=== PATIENT | female | born 1960 | race Caucasian/White ===

== ENCOUNTER 2018-05-23 14:58 | Observation (INO) ==
[2018-05-23] MEDS ORDERED: SODIUM CHLORIDE 0.9% 1000ML 1,000 ML IV ONE (15:06)
--- NOTE | 2018-05-23 15:09 | Emergency Department Note ---
Entered by Reece Galindo acting as a scribe for Cedric Duff DO History of Present Illness General Chief complaint: Stroke/CVA Symptoms Stated complaint: stroke symptoms Time Seen by Provider: 05/23/18 14:58 Source: patient and EMS Mode of arrival: EMS History of Present Illness Provider complaint: Syncope Onset (ago): hour(s) 1 Location: head Quality: + other (Syncope) Exacerbated By: + none Associated symptoms: no nausea/vomiting Patient is a 57 year old female who presents herself via EMS due to a syncope episode. EMS reports that this episode occurred about an hour ago and these episodes have been ongoing for 6 months. EMS reports the patient is experiencing facial drooping, slurred speech, left arm weakness, headaches and dizziness. Patient states she was at home felt fine before passing out. She notes having a brain tumor in the past and nothing exacerbated the syncope episodes. She denies nausea and vomiting with her last bowel movement being in the ER. Home Medications Home Medications Medication Instructions Recorded Confirmed Type Saccharomyces boulardii [Florastor] 250 mg PO BID #20 cap 03/03/18 05/23/18 Rx carbamazepine 200 mg PO BID 03/03/18 05/23/18 History carbidopa-levodopa 1 tab PO TID 03/03/18 05/23/18 History cholecalciferol (vitamin D3) 1,000 unit PO DAILY 03/03/18 05/23/18 History [Vitamin D3] cyanocobalamin (vitamin B-12) 1,000 mcg PO DAILY 03/03/18 05/23/18 History [Vitamin B-12] duloxetine 60 mg PO DAILY 03/03/18 05/23/18 History gabapentin 300 mg PO HS 03/03/18 05/23/18 History hydroxyzine HCl 25 - 50 mg PO BID PRN 03/03/18 05/23/18 History levothyroxine 50 mcg PO DAILY 03/03/18 05/23/18 History linaclotide [Linzess] 72 mcg PO HS 03/03/18 05/23/18 History lysine [L-Lysine] 500 mg PO DAILY 03/03/18 05/23/18 History omeprazole 40 mg PO DAILY 03/03/18 05/23/18 History ranitidine HCl [Zantac] 150 mg PO BID 03/03/18 05/23/18 History rosuvastatin 20 mg PO HS 03/03/18 05/23/18 History Allergies Allergy/AdvReac Type Severity Reaction Status Date / Time Penicillins Allergy Intermediate HIVES Verified 05/23/18 16:32 phenytoin AdvReac Intermediate HIVES Verified 05/23/18 16:32 Past Med/Surg History Medical History Hypokalemia Stroke-like symptoms Brain cancer Craniotomy performed in 1996 in [place] for an astrocytoma Anxiety Depression GERD (gastroesophageal reflux disease) Hyperlipidemia Hypothyroidism Irritable bowel syndrome Myocardial Infarction Osteoarthritis Seizure Syncope Surgical History History of craniotomy Family History Sister Family history of reaction to anesthesia Social History Preferred Language: [place] Communication Ability: Effective 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 and A total of 10 systems reviewed and were otherwise negative Physical Exam Vital Signs Vital Signs - 24 hr 05/23/18 14:38 05/23/18 15:01 05/23/18 15:33 Temperature 36.7 C Temperature Source Oral Sepsis Recent Fever Within 48 Hours No Sepsis New/Unexplained Change in Mental Status No Sepsis Action Taken by Nursing No Action Required Pulse Rate 66 67 67 Pulse Rate [Bilateral Brachial] Pulse Rate from SpO2 Sensor 67 67 Pulse Rhythm Regular Pulse Rhythm [Bilateral Brachial] Pulse Strength Normal Pulse Strength [Bilateral Brachial] Respiratory Rate 20 15 20 Respiratory Effort / Characteristics Non-Labored Spontaneous Respiratory Depth Normal Respiratory Pattern Regular Blood Pressure 118/79 118/79 Blood Pressure [Right Arm] Blood Pressure Mean 92 92 Blood Pressure Mean [Right Arm] Blood Pressure Position Sitting Blood Pressure Position [Right Arm] Pulse Oximetry 99 100 100 Oxygen Delivery Method Room Air 05/23/18 15:37 05/23/18 15:40 05/23/18 15:45 Temperature Temperature Source Sepsis Recent Fever Within 48 Hours Sepsis New/Unexplained Change in Mental Status Sepsis Action Taken by Nursing Pulse Rate 63 62 Pulse Rate [Bilateral Brachial] Pulse Rate from SpO2 Sensor 63 62 Pulse Rhythm Pulse Rhythm [Bilateral Brachial] Pulse Strength Pulse Strength [Bilateral Brachial] Respiratory Rate 15 15 Respiratory Effort / Characteristics Respiratory Depth Respiratory Pattern Blood Pressure 124/90 Blood Pressure [Right Arm] Blood Pressure Mean 101 Blood Pressure Mean [Right Arm] Blood Pressure Position Blood Pressure Position [Right Arm] Pulse Oximetry 100 100 Oxygen Delivery Method Room Air 05/23/18 15:50 05/23/18 16:00 05/23/18 16:01 Temperature Temperature Source Sepsis Recent Fever Within 48 Hours Sepsis New/Unexplained Change in Mental Status Sepsis Action Taken by Nursing Pulse Rate 62 61 61 Pulse Rate [Bilateral Brachial] Pulse Rate from SpO2 Sensor 61 61 62 Pulse Rhythm Pulse Rhythm [Bilateral Brachial] Pulse Strength Pulse Strength [Bilateral Brachial] Respiratory Rate 14 14 15 Respiratory Effort / Characteristics Respiratory Depth Respiratory Pattern Blood Pressure 133/91 Blood Pressure [Right Arm] Blood Pressure Mean 105 Blood Pressure Mean [Right Arm] Blood Pressure Position Blood Pressure Position [Right Arm] Pulse Oximetry 98 98 98 Oxygen Delivery Method 05/23/18 16:10 05/23/18 16:17 05/23/18 16:20 Temperature Temperature Source Sepsis Recent Fever Within 48 Hours Sepsis New/Unexplained Change in Mental Status Sepsis Action Taken by Nursing Pulse Rate 71 66 62 Pulse Rate [Bilateral Brachial] Pulse Rate from SpO2 Sensor 71 66 62 Pulse Rhythm Pulse Rhythm [Bilateral Brachial] Pulse Strength Pulse Strength [Bilateral Brachial] Respiratory Rate 16 15 15 Respiratory Effort / Characteristics Respiratory Depth Respiratory Pattern Blood Pressure 136/93 Blood Pressure [Right Arm] Blood Pressure Mean 107 Blood Pressure Mean [Right Arm] Blood Pressure Position Blood Pressure Position [Right Arm] Pulse Oximetry 98 100 99 Oxygen Delivery Method 05/23/18 16:30 05/23/18 16:31 05/23/18 16:40 Temperature Temperature Source Sepsis Recent Fever Within 48 Hours Sepsis New/Unexplained Change in Mental Status Sepsis Action Taken by Nursing Pulse Rate 62 63 69 Pulse Rate [Bilateral Brachial] Pulse Rate from SpO2 Sensor 62 62 69 Pulse Rhythm Pulse Rhythm [Bilateral Brachial] Pulse Strength Pulse Strength [Bilateral Brachial] Respiratory Rate 13 17 18 Respiratory Effort / Characteristics Respiratory Depth Respiratory Pattern Blood Pressure 119/84 Blood Pressure [Right Arm] Blood Pressure Mean 95 Blood Pressure Mean [Right Arm] Blood Pressure Position Blood Pressure Position [Right Arm] Pulse Oximetry 99 99 99 Oxygen Delivery Method 05/23/18 16:46 05/23/18 16:50 05/23/18 17:00 Temperature Temperature Source Sepsis Recent Fever Within 48 Hours Sepsis New/Unexplained Change in Mental Status Sepsis Action Taken by Nursing Pulse Rate 67 60 Pulse Rate [Bilateral Brachial] Pulse Rate from SpO2 Sensor 67 69 60 Pulse Rhythm Pulse Rhythm [Bilateral Brachial] Pulse Strength Pulse Strength [Bilateral Brachial] Respiratory Rate 21 19 12 Respiratory Effort / Characteristics Respiratory Depth Respiratory Pattern Blood Pressure 121/85 136/92 Blood Pressure [Right Arm] Blood Pressure Mean 97 106 Blood Pressure Mean [Right Arm] Blood Pressure Position Blood Pressure Position [Right Arm] Pulse Oximetry 99 98 100 Oxygen Delivery Method 05/23/18 17:01 05/23/18 17:10 05/23/18 17:16 Temperature Temperature Source Sepsis Recent Fever Within 48 Hours Sepsis New/Unexplained Change in Mental Status Sepsis Action Taken by Nursing Pulse Rate 60 58 L 59 L Pulse Rate [Bilateral Brachial] Pulse Rate from SpO2 Sensor 60 58 L 60 Pulse Rhythm Pulse Rhythm [Bilateral Brachial] Pulse Strength Pulse Strength [Bilateral Brachial] Respiratory Rate 19 15 17 Respiratory Effort / Characteristics Respiratory Depth Respiratory Pattern Blood Pressure 129/87 Blood Pressure [Right Arm] Blood Pressure Mean 101 Blood Pressure Mean [Right Arm] Blood Pressure Position Blood Pressure Position [Right Arm] Pulse Oximetry 98 99 97 Oxygen Delivery Method 05/23/18 17:20 05/23/18 17:30 05/23/18 17:31 Temperature Temperature Source Sepsis Recent Fever Within 48 Hours Sepsis New/Unexplained Change in Mental Status Sepsis Action Taken by Nursing Pulse Rate 60 64 63 Pulse Rate [Bilateral Brachial] Pulse Rate from SpO2 Sensor 60 65 63 Pulse Rhythm Pulse Rhythm [Bilateral Brachial] Pulse Strength Pulse Strength [Bilateral Brachial] Respiratory Rate 15 16 17 Respiratory Effort / Characteristics Respiratory Depth Respiratory Pattern Blood Pressure 116/77 Blood Pressure [Right Arm] Blood Pressure Mean 90 Blood Pressure Mean [Right Arm] Blood Pressure Position Blood Pressure Position [Right Arm] Pulse Oximetry 95 97 97 Oxygen Delivery Method 05/23/18 17:40 05/23/18 17:45 05/23/18 17:50 Temperature Temperature Source Sepsis Recent Fever Within 48 Hours Sepsis New/Unexplained Change in Mental Status Sepsis Action Taken by Nursing Pulse Rate 67 64 62 Pulse Rate [Bilateral Brachial] Pulse Rate from SpO2 Sensor 68 64 62 Pulse Rhythm Pulse Rhythm [Bilateral Brachial] Pulse Strength Pulse Strength [Bilateral Brachial] Respiratory Rate 15 18 16 Respiratory Effort / Characteristics Respiratory Depth Respiratory Pattern Blood Pressure 117/81 Blood Pressure [Right Arm] Blood Pressure Mean 93 Blood Pressure Mean [Right Arm] Blood Pressure Position Blood Pressure Position [Right Arm] Pulse Oximetry 96 96 100 Oxygen Delivery Method 05/23/18 18:00 05/23/18 18:01 05/23/18 18:10 Temperature Temperature Source Sepsis Recent Fever Within 48 Hours Sepsis New/Unexplained Change in Mental Status Sepsis Action Taken by Nursing Pulse Rate 63 64 66 Pulse Rate [Bilateral Brachial] Pulse Rate from SpO2 Sensor 63 64 66 Pulse Rhythm Pulse Rhythm [Bilateral Brachial] Pulse Strength Pulse Strength [Bilateral Brachial] Respiratory Rate 12 15 12 Respiratory Effort / Characteristics Respiratory Depth Respiratory Pattern Blood Pressure 130/82 Blood Pressure [Right Arm] Blood Pressure Mean 98 Blood Pressure Mean [Right Arm] Blood Pressure Position Blood Pressure Position [Right Arm] Pulse Oximetry 99 100 100 Oxygen Delivery Method 05/23/18 18:17 05/23/18 18:20 05/23/18 18:22 Temperature Temperature Source Sepsis Recent Fever Within 48 Hours Sepsis New/Unexplained Change in Mental Status Sepsis Action Taken by Nursing Pulse Rate 64 75 65 Pulse Rate [Bilateral Brachial] Pulse Rate from SpO2 Sensor 67 69 64 Pulse Rhythm Pulse Rhythm [Bilateral Brachial] Pulse Strength Pulse Strength [Bilateral Brachial] Respiratory Rate 15 23 15 Respiratory Effort / Characteristics Respiratory Depth Respiratory Pattern Blood Pressure 132/89 Blood Pressure [Right Arm] Blood Pressure Mean 103 Blood Pressure Mean [Right Arm] Blood Pressure Position Blood Pressure Position [Right Arm] Pulse Oximetry 97 92 99 Oxygen Delivery Method 05/23/18 18:30 05/23/18 18:31 05/23/18 18:32 Temperature Temperature Source Sepsis Recent Fever Within 48 Hours Sepsis New/Unexplained Change in Mental Status Sepsis Action Taken by Nursing Pulse Rate 62 62 67 Pulse Rate [Bilateral Brachial] Pulse Rate from SpO2 Sensor 62 62 66 Pulse Rhythm Pulse Rhythm [Bilateral Brachial] Pulse Strength Pulse Strength [Bilateral Brachial] Respiratory Rate 16 17 17 Respiratory Effort / Characteristics Respiratory Depth Respiratory Pattern Blood Pressure 121/89 Blood Pressure [Right Arm] Blood Pressure Mean 99 Blood Pressure Mean [Right Arm] Blood Pressure Position Blood Pressure Position [Right Arm] Pulse Oximetry 100 100 100 Oxygen Delivery Method 05/23/18 18:40 05/23/18 18:46 05/23/18 18:50 Temperature Temperature Source Sepsis Recent Fever Within 48 Hours Sepsis New/Unexplained Change in Mental Status Sepsis Action Taken by Nursing Pulse Rate 63 64 63 Pulse Rate [Bilateral Brachial] Pulse Rate from SpO2 Sensor 64 63 63 Pulse Rhythm Pulse Rhythm [Bilateral Brachial] Pulse Strength Pulse Strength [Bilateral Brachial] Respiratory Rate 12 13 13 Respiratory Effort / Characteristics Respiratory Depth Respiratory Pattern Blood Pressure 133/84 Blood Pressure [Right Arm] Blood Pressure Mean 100 Blood Pressure Mean [Right Arm] Blood Pressure Position Blood Pressure Position [Right Arm] Pulse Oximetry 98 98 100 Oxygen Delivery Method 05/23/18 19:00 05/23/18 19:01 05/23/18 19:42 Temperature 36.8 C Temperature Source Oral Sepsis Recent Fever Within 48 Hours Sepsis New/Unexplained Change in Mental Status Sepsis Action Taken by Nursing Pulse Rate 62 62 61 Pulse Rate [Bilateral Brachial] 60 Pulse Rate from SpO2 Sensor 62 62 Pulse Rhythm Pulse Rhythm [Bilateral Brachial] Regular Pulse Strength Pulse Strength [Bilateral Brachial] Normal Respiratory Rate 18 17 18 Respiratory Effort / Characteristics Non-Labored Spontaneous Respiratory Depth Normal Respiratory Pattern Regular Blood Pressure 129/77 Blood Pressure [Right Arm] 119/77 Blood Pressure Mean 94 Blood Pressure Mean [Right Arm] 91 Blood Pressure Position Blood Pressure Position [Right Arm] Lying Pulse Oximetry 98 96 100 Oxygen Delivery Method Room Air 05/23/18 23:16 05/23/18 23:26 05/24/18 04:37 Temperature 36.6 C 36.9 C Temperature Source Oral Oral Sepsis Recent Fever Within 48 Hours Sepsis New/Unexplained Change in Mental Status Sepsis Action Taken by Nursing Pulse Rate 62 Pulse Rate [Bilateral Brachial] 64 68 Pulse Rate from SpO2 Sensor Pulse Rhythm Pulse Rhythm [Bilateral Brachial] Pulse Strength Pulse Strength [Bilateral Brachial] Respiratory Rate 18 18 Respiratory Effort / Characteristics Respiratory Depth Respiratory Pattern Blood Pressure Blood Pressure [Right Arm] 127/84 117/78 Blood Pressure Mean Blood Pressure Mean [Right Arm] 98 91 Blood Pressure Position Blood Pressure Position [Right Arm] Lying Lying Pulse Oximetry 100 97 Oxygen Delivery Method Room Air Room Air 05/24/18 06:58 05/24/18 11:26 Temperature 36.6 C 36.8 C Temperature Source Oral Oral Sepsis Recent Fever Within 48 Hours Sepsis New/Unexplained Change in Mental Status Sepsis Action Taken by Nursing Pulse Rate Pulse Rate [Bilateral Brachial] 60 71 Pulse Rate from SpO2 Sensor Pulse Rhythm Pulse Rhythm [Bilateral Brachial] Pulse Strength Pulse Strength [Bilateral Brachial] Respiratory Rate 18 19 Respiratory Effort / Characteristics Respiratory Depth Respiratory Pattern Blood Pressure Blood Pressure [Right Arm] 114/74 130/83 Blood Pressure Mean Blood Pressure Mean [Right Arm] 87 98 Blood Pressure Position Blood Pressure Position [Right Arm] Lying Sitting Pulse Oximetry 99 90 Oxygen Delivery Method Room Air Room Air GENERAL: Patient is listless and slow to respond to questions. She does respond appropriately. EYES: The conjunctivae are clear. The pupils are round and reactive. EARS, NOSE, MOUTH AND THROAT: The nose is without any evidence of any deformity. Mucous membranes are moist tongue is midline NECK: The neck is nontender and supple. RESPIRATORY: Normal respiratory effort is noted there is no evidence of wheezing rhonchi or rales CARDIOVASCULAR: Regular rate and rhythm noted there no murmurs rubs or gallops normal S1 normal S2 GASTROINTESTINAL: The abdomen is soft. Bowel sounds are present in all quadran ts. Abdomen is nontender MUSCULOSKELETAL/EXTREMITIES: There is no evidence of gross deformity full range of motion is noted in the hips and shoulders SKIN: There is no obvious evidence of any rash. There are no petechiae, pallor or cyanosis noted. NEUROLOGIC: Patient is oriented to person place and situation. There is a drift in the left upper extremity. There is a left facial droop with forehead sparing. Left leg appears to have appropriate strength compared to the right leg. [employer] strength is diminished in the left upper extremity compared to the right. Course 1500: Past medical records reviewed. The patient was evaluated in room C03, and a complete history and physical examination were performed. 1546:The patient is feeling slightly better. 1608: I reevaluated the patient and will admit the patient. [facility] The patient has verbalized agreement of the treatment plan. Administered Medications Carbamazepine (Tegretol Xr) 200 mg PO BID JOVANY Stop: 06/22/18 20:59 Last Admin: 05/23/18 21:07 Dose: Not Given Documented by: [id number] Carbidopa/Levodopa (Sinemet 25/100 Mg) 1 tab PO TID JOVANY Stop: 06/22/18 20:59 Last Admin: 05/23/18 21:07 Dose: Not Given Documented by: [id number] Gabapentin (Neurontin) 300 mg PO HS JOVANY Stop: 06/22/18 20:59 Last Admin: 05/23/18 21:07 Dose: Not Given Documented by: [id number] Gadobutrol (Gadavist 65ml) 6 ml IV ONCE PRN PRN Reason: Interaction Checking Stop: 05/27/18 21:53 Last Admin: 05/23/18 21:54 Dose: 6 ml Documented by: [id number] Sodium Chloride (Nss 1000ml) 1,000 mls @ 50 mls/hr IV .Q20H JOVANY Stop: 06/22/18 15:14 Last Admin: 05/23/18 21:50 Dose: 50 mls/hr Documented by: [id number] Ioversol (Optiray 320 125ml) 119 ml IV ONCE PRN PRN Reason: Interaction Checking Stop: 05/27/18 15:21 Last Admin: 05/23/18 15:23 Dose: 119 ml Documented by: [id number] Levothyroxine Sodium (Synthroid) 50 mcg PO DAILYBB [facility] Stop: 06/23/18 06:29 Last Admin: 05/24/18 05:19 Dose: Not Given Documented by: [id number] Linaclotide (Linzess) 72 mcg PO HS [facility] Stop: 06/22/18 20:59 Last Admin: 05/23/18 21:06 Dose: Not Given Documented by: [id number] Ranitidine HCl (Zantac) 150 mg PO BID JOVANY Stop: 06/22/18 20:59 Last Admin: 05/23/18 21:07 Dose: Not Given Documented by: [id number] Rosuvastatin Calcium (Crestor) 20 mg PO HS [facility] Stop: 06/22/18 20:59 Last Admin: 05/23/18 21:06 Dose: Not Given Documented by: [id number] Saccharomyces Boulardii (Florastor) 250 mg PO BID JOVANY Stop: 06/22/18 20:59 Last Admin: 05/23/18 21:06 Dose: Not Given Documented by: [id number] Discontinued Medications Sodium Chloride (Nss 1000ml) 1,000 mls @ 999 mls/hr IV .Q1H1M ONE Stop: 05/23/18 16:06 Last Infusion: 05/23/18 21:17 Dose: 0 mls/hr Documented by: [id number] Admin: 05/23/18 15:53 Dose: 999 mls/hr Documented by: [id number] Potassium Chloride (Klor-Con M20) 40 meq PO NOW STA Stop: 05/23/18 20:55 Last Admin: 05/23/18 21:06 Dose: Not Given Documented by: [id number] Medical Decision Making Differential Diagnosis Differential diagnosis: Etiologies such as vasovagal event, infection, anemia, hypoglycemia, hypovolemia, electrolyte abnormalities, dysrhythmias, cardiac ischemia, cardiac tamponade, valvular heart disease, structural heart disease, seizure, vascular stenosis/dissection, pulmonary embolism, intracerebral event, toxicological pr ocess, neurologic event, as well as others were entertained. Medical Records Attestation: I reviewed the patient's medical records. Home Medications Current Medication List: was personally reviewed by me Laboratory Data Attestation: I reviewed the patient's lab results. Result diagrams: 05/23/18 22:37 05/23/18 22:37 Lab Results 05/23/18 05/23/18 05/23/18 Range/Units 14:28 14:28 14:28 WBC 4.63 L (4.8-10.8) K/uL RBC 4.67 (4.2-5.4) M/uL Hgb 15.0 (12.0-16.0) g/dL Hct 42.5 (37-47) % MCV 91.0 (80-100) fL MCH 32.1 (25-34) pg MCHC 35.3 (32-36) g/dL RDW Std Deviation 43.9 (36.4-46.3) fL RDW Coeff of Claudio 13.4 (11.5-14.5) % Plt Count 208 (130-400) K/uL MPV 10.4 (7.4-10.4) fL Immature Gran % (Auto) 0.2 % Neut % (Auto) 44.3 % Lymph % (Auto) 48.4 % [place] % (Auto) 7.1 % Eos % (Auto) 0.0 % Baso % (Auto) 0.0 % Immature Gran # (Auto) 0.01 (0.00-0.02) K/uL Neut # (Auto) 2.05 (1.4-6.5) K/uL Lymph # (Auto) 2.24 (1.2-3.4) K/uL [place] # (Auto) 0.33 (0.11-0.59) K/uL Eos # (Auto) 0.00 (0-0.5) K/uL Baso # (Auto) 0.00 (0-0.2) K/uL PT (9.0-12.0) Seconds INR (0.9-1.1) APTT (21.0-31.0) Seconds PTT Ratio Sodium 145 (136-145) mmol/L Potassium 3.3 L (3.5-5.1) mmol/L Chloride 108 H (98-107) mmol/L Carbon Dioxide 29 (21-32) mmol/L Anion Gap 8.0 (3-11) BUN 17 (7-18) mg/dl Creatinine 0.85 (0.6-1.2) mg/dl Est Cr Clr Drug Dosing Not Reportable Est GFR ( Amer) 88.8 Est GFR (Non-Af Amer) 76.6 BUN/Creatinine Ratio 20.1 H (10-20) Glucose 132 H (70-99) mg/dl Calcium 8.6 (8.5-10.1) mg/dl Magnesium 2.1 (1.8-2.4) mg/dl Total Bilirubin 0.3 (0.2-1) mg/dl AST 47 H (15-37) U/L ALT 15 (12-78) U/L Alkaline Phosphatase 149 H (45-117) U/L Troponin I < 0.015 (0-0.045) ng/ml Total Protein 7.4 (6.4-8.2) gm/dl Albumin 3.8 (3.4-5.0) gm/dl Globulin 3.6 (2.5-4.0) gm/dl Albumin/Globulin Ratio 1.1 (0.9-2) Urine Color Urine Appearance (Clear) Urine pH (4.5-7.5) Ur Specific [place] (1.000-1.030) Urine Protein (Negative) Urine Glucose (UA) (Negative) Urine Ketones (Negative) Urine Blood (Negative) Urine Nitrite (Negative) Urine Bilirubin (Negative) Urine Urobilinogen (Negative) Ur Leukocyte Esterase (Negative) Urine WBC (Auto) (0-5) /hpf Urine RBC (Auto) (0-4) /hpf U Hyaline Cast (Auto) (0-5) /lpf U Epithel Cells (Auto) (0-5) /lpf Urine Bacteria (Auto) (Negative) Carbamazepine 15.0 H* (4-12) mcg/ml 05/23/18 05/23/18 05/23/18 Range/Units 15:32 22:37 22:37 WBC 4.96 (4.8-10.8) K/uL RBC 4.37 (4.2-5.4) M/uL Hgb 13.8 (12.0-16.0) g/dL Hct 39.5 (37-47) % MCV 90.4 (80-100) fL MCH 31.6 (25-34) pg MCHC 34.9 (32-36) g/dL RDW Std Deviation 43.5 (36.4-46.3) fL RDW Coeff of Claudio 13.3 (11.5-14.5) % Plt Count 190 (130-400) K/uL MPV 10.0 (7.4-10.4) fL Immature Gran % (Auto) 0.2 % Neut % (Auto) 55.0 % Lymph % (Auto) 36.9 % [place] % (Auto) 7.9 % Eos % (Auto) 0.0 % Baso % (Auto) 0.0 % Immature Gran # (Auto) 0.01 (0.00-0.02) K/uL Neut # (Auto) 2.73 (1.4-6.5) K/uL Lymph # (Auto) 1.83 (1.2-3.4) K/uL [place] # (Auto) 0.39 (0.11-0.59) K/uL Eos # (Auto) 0.00 (0-0.5) K/uL Baso # (Auto) 0.00 (0-0.2) K/uL PT 10.8 (9.0-12.0) Seconds INR 1.1 (0.9-1.1) APTT 24.2 (21.0-31.0) Seconds PTT Ratio 0.9 Sodium 145 (136-145) mmol/L Potassium 3.6 (3.5-5.1) mmol/L Chloride 110 H (98-107) mmol/L Carbon Dioxide 29 (21-32) mmol/L Anion Gap 6.0 (3-11) BUN 11 (7-18) mg/dl Creatinine 0.56 L (0.6-1.2) mg/dl Est Cr Clr Drug Dosing 92.8 Est GFR ( Amer) 120.8 Est GFR (Non-Af Amer) 104.2 BUN/Creatinine Ratio 19.3 (10-20) Glucose 83 (70-99) mg/dl Calcium 8.6 (8.5-10.1) mg/dl Magnesium (1.8-2.4) mg/dl Total Bilirubin (0.2-1) mg/dl AST (15-37) U/L ALT (12-78) U/L Alkaline Phosphatase (45-117) U/L Troponin I (0-0.045) ng/ml Total Protein (6.4-8.2) gm/dl Albumin (3.4-5.0) gm/dl Globulin (2.5-4.0) gm/dl Albumin/Globulin Ratio (0.9-2) Urine Color Urine Appearance (Clear) Urine pH (4.5-7.5) Ur Specific [place] (1.000-1.030) Urine Protein (Negative) Urine Glucose (UA) (Negative) Urine Ketones (Negative) Urine Blood (Negative) Urine Nitrite (Negative) Urine Bilirubin (Negative) Urine Urobilinogen (Negative) Ur Leukocyte Esterase (Negative) Urine WBC (Auto) (0-5) /hpf Urine RBC (Auto) (0-4) /hpf U Hyaline Cast (Auto) (0-5) /lpf U Epithel Cells (Auto) (0-5) /lpf Urine Bacteria (Auto) (Negative) Carbamazepine (4-12) mcg/ml 05/24/18 Range/Units 08:15 WBC (4.8-10.8) K/uL RBC (4.2-5.4) M/uL Hgb (12.0-16.0) g/dL Hct (37-47) % MCV (80-100) fL MCH (25-34) pg MCHC (32-36) g/dL RDW Std Deviation (36.4-46.3) fL RDW Coeff of Claudio (11.5-14.5) % Plt Count (130-400) K/uL MPV (7.4-10.4) fL Immature Gran % (Auto) % Neut % (Auto) % Lymph % (Auto) % [place] % (Auto) % Eos % (Auto) % Baso % (Auto) % Immature Gran # (Auto) (0.00-0.02) K/uL Neut # (Auto) (1.4-6.5) K/uL Lymph # (Auto) (1.2-3.4) K/uL [place] # (Auto) (0.11-0.59) K/uL Eos # (Auto) (0-0.5) K/uL Baso # (Auto) (0-0.2) K/uL PT (9.0-12.0) Seconds INR (0.9-1.1) APTT (21.0-31.0) Seconds PTT Ratio Sodium (136-145) mmol/L Potassium (3.5-5.1) mmol/L Chloride (98-107) mmol/L Carbon Dioxide (21-32) mmol/L Anion Gap (3-11) BUN (7-18) mg/dl Creatinine (0.6-1.2) mg/dl Est Cr Clr Drug Dosing Est GFR ( Amer) Est GFR (Non-Af Amer) BUN/Creatinine Ratio (10-20) Glucose (70-99) mg/dl Calcium (8.5-10.1) mg/dl Magnesium (1.8-2.4) mg/dl Total Bilirubin (0.2-1) mg/dl AST (15-37) U/L ALT (12-78) U/L Alkaline Phosphatase (45-117) U/L Troponin I (0-0.045) ng/ml Total Protein (6.4-8.2) gm/dl Albumin (3.4-5.0) gm/dl Globulin (2.5-4.0) gm/dl Albumin/Globulin Ratio (0.9-2) Urine Color Dark Yellow Urine Appearance Cloudy H (Clear) Urine pH 5.5 (4.5-7.5) Ur Specific [place] > 1.045 H (1.000-1.030) Urine Protein Negative (Negative) Urine Glucose (UA) Negative (Negative) Urine Ketones Trace H (Negative) Urine Blood Negative (Negative) Urine Nitrite Positive H (Negative) Urine Bilirubin Negative (Negative) Urine Urobilinogen Negative (Negative) Ur Leukocyte Esterase 2+ H (Negative) Urine WBC (Auto) >30 H (0-5) /hpf Urine RBC (Auto) 0-4 (0-4) /hpf U Hyaline Cast (Auto) 5-10 H (0-5) /lpf U Epithel Cells (Auto) >30 H (0-5) /lpf Urine Bacteria (Auto) Negative (Negative) Carbamazepine (4-12) mcg/ml Imaging Data Attestation: I personally reviewed and interpreted this imaging study as follows: Radiologist's Impression: Radiology results as stated below per my review and the radiologist's interpretation: CT angio neck with con CLINICAL HISTORY: weakness COMPARISON STUDY: No previous studies for comparison. TECHNIQUE: CT angiography was performed from the aortic arch to the skull base. MIP imaging was performed. The patient was scanned in a dynamic helical fashion during intravenous administration of 119 cc of Optiray 320. A dose lowering technique was utilized adhering to the principles of ALARA. CT DOSE: 1107.31 mGy.cm Technique: CT angiogram of the carotid and vertebral arteries was obtained using intravenous contrast and 3-D reconstruction. NASCET criteria was utilized. Findings: There is a multinodular thyroid gland. No dominant suspicious nodules are visualized. The common carotids have a medial retropharyngeal course. The right carotid revealed no evidence of aneurysm and no evidence of dissection. There is no evidence of hemodynamic significant stenosis. The left carotid revealed no evidence of hemodynamic significant stenosis. There is no evidence of aneurysm. There is no evidence of dissection. There is no evidence of hemodynamically significant vertebral stenosis. There is no evidence of vertebral dissection. IMPRESSION: No evidence of hemodynamically significant carotid or vertebral artery stenosis. No evidence of dissection. Electronically signed by: Jamie Lacy M.D. 05/23/2018 3:39 PM Dictated: 05/23/18 1536 Transcribed: 05/23/[address] angio head w con CLINICAL HISTORY: weakness HISTORY OF BRAIN TUMOR REMOVAL TECHNIQUE: CT angiography of the head was performed in a dynamic helical fashion during intravenous administration of 119 cc cc of Optiray 320. MIP imaging was performed. A dose lowering technique was utilized adhering to the principles of ALARA. CT DOSE: COMPARISON STUDY: No previous studies for comparison. FINDINGS: There are no lesion suspicious for aneurysm. There are no major intracranial branch occlusions. The dural venous sinuses appear patent. There is a small right-sided subcutaneous dural hygroma. 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 There are postsurgical changes of a right frontal craniotomy. There is mild right to left midline shift. Inflammatory changes are present within the right frontal sinus. IMPRESSION: 1. No evidence of aneurysm. 2. No evidence of major intracranial branch occlusion or stenosis. 3. Postsurgical changes involve the right frontal lobe with a right frontal porencephalic cyst. 4. Small right convexity subdural hygroma. 5. Mild right to left midline shift. Electronically signed by: Jamie Lacy M.D. 05/23/2018 3:36 PM Dictated: 05/23/18 1533 Transcribed: 05/23/18 1533 XR chest 1V portable CLINICAL HISTORY: weakness COMPARISON STUDY: 03/03/2018 FINDINGS: The cardiac and mediastinal contours are normal. There is no evidence of focal pulmonary consolidation. There is no evidence of failure. No pleural effusions are visualized.[ IMPRESSION: No active disease in the chest. Electronically signed by: Jamie Lacy M.D. 05/23/2018 3:56 PM Dictated: 05/23/18 1556 Transcribed: 05/23/[address] head/brain wo con CLINICAL HISTORY: Stroke like symptoms COMPARISON STUDY: 03/03/2018 TECHNIQUE: Axial CT of the brain is performed from the vertex to the skull base. IV contrast was not administered for this examination. A dose lowering technique was utilized adhering to the principles of ALARA. CT DOSE: FINDINGS: There are post right frontal craniotomy changes. There is a small right convexity subdural hygroma. This measures 7 mm in maximal thickness. There is a 6.3 cm right frontal porencephalic cyst. There is persistent mild midline shift. There is no CT evidence of acute cortical infarction. There is stable hyperdense material at the posterior aspect of the right frontal lobe medially There are patchy white matter hypodensities likely on a small vessel basis. There is no evidence of pathologic ventricular dilatation. There is mild mucosal disease within the right frontal sinus. There is a stable salt and pepper appearance of the calvarial vertex IMPRESSION: 1. Postsurgical changes of a right frontal craniotomy 2. 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 Interval development of a small right convexity subdural hygroma 4. Persistent mild right to left midline shift 5. No evidence of acute hemorrhage Electronically signed by: Jamie Lacy M.D. 05/23/2018 3:29 PM Dictated: 05/23/18 1522 Transcribed: 05/23/18 1522 ECG Data Attestation: I personally reviewed and interpreted this ECG as follows: Indication: other (Syncope) Rate (beats per minute): 63 Rhythm: normal sinus Findings: + other (Anterior and lateral ST depression with T wave inversion noted ) Blood Pressure Blood Pressure Findings: Normal blood pressure MDM Narrative The patient is a 57-year-old female who presented to the emergency department as a stroke alert. The patient's last known well time was not completely clear. The patient does have a history of a craniotomy for a right frontal lobe mass. The patient started having left facial droop and left arm weakness and presented to the emergency department after syncopal episode. The patient did not have any acute bleeding on CT the head however she did have a hygroma and her postsurgical changes were noted. The patient's condition quickly improved while she was in the emergency department and I do not feel that she would benefit from TPA. I discussed TPA with the patient. At this point I do feel the risk would be too high from giving her TPA as her symptoms continue to improve e specially given her findings on radiographic studies. I discussed the patient's laboratory and radiographic studies with her. I discussed her case with the on-call [facility] hospitalist group. They have agreed to evaluate the patient in the emergency department for further management and disposition. The patient was complaining of some dizziness upon standing and near syncopal symptoms. She was treated with IV fluids and her blood pressure slowly improved. Impression & Plan CVA (cerebral vascular accident), Syncope, Brain TIA Discharge Plan Visit Data *Final* Discharge Date/Time: 05/23/18 19:04 Chief Complaint: Stroke/CVA Symptoms Stated Complaint: stroke symptoms ED Provider: Cedric Duff Discharge Problem: CVA (cerebral vascular accident), Syncope, Brain TIA Patient Disposition: Admitted As Inpatient Condition: Serious Discharge Instructions Interventions: ED Discharge Assessment Last Done: 05/23/18 19:04 Discharge Problem: CVA (cerebral vascular accident) Qualifiers: CVA mechanism: unspecified Qualified Code(s): I63.9 - Cerebral infarction, unspecified Syncope Qualifiers: Syncope type: unspecified Qualified Code(s): R55 - Syncope and collapse The scribe's documentation has been prepared under my direction and personally reviewed by me in its entirety. I confirm that the note above accurately reflects all work, treatment, procedures, and medical decision making performed by me.
[2018-05-23 15:15] LABS: Hematocrit (blood only) 42.5 % (37-47); Immature Granulocytes # (auto) 0.01 K/uL (0.00-0.02); Immature Granulocytes % (auto) 0.2 %; Lymphocytes # (auto) 2.24 K/uL (1.2-3.4); Lymphocytes % (auto) 48.4 %; Mean Corpuscular Hgb Conc 35.3 g/dL (32-36); Mean Platelet Volume 10.4 fL (7.4-10.4); Monocytes # (auto) 0.33 K/uL (0.11-0.59); Monocytes % (auto) 7.1 %; Neutrophils # (auto) 2.05 K/uL (1.4-6.5); Neutrophils % (auto) 44.3 %; Platelet Count 208 K/uL (130-400); RDW Coefficient of Variation 13.4 % (11.5-14.5); RDW Standard Deviation 43.9 fL (36.4-46.3); Red Blood Count 4.67 M/uL (4.2-5.4); White Blood Count 4.63 K/uL (4.8-10.8)
[2018-05-23] MEDS ORDERED: SODIUM CHLORIDE 0.9% 1000ML 1,000 ML IV SCH (15:15)
[2018-05-23] MEDS ORDERED: OPTIRAY 320 125ml IV PRN (15:22)
--- NOTE | 2018-05-23 15:30 | CT Scan Report ---
CT head/brain wo con CLINICAL HISTORY: Stroke like symptoms COMPARISON STUDY: 03/03/2018 TECHNIQUE: Axial CT of the brain is performed from the vertex to the skull base. IV contrast was not administered for this examination. A dose lowering technique was utilized adhering to the principles of ALARA. CT DOSE: FINDINGS: There are post right frontal craniotomy changes. There is a small right convexity subdural hygroma. T his measures 7 mm in maximal thickness. There is a 6.3 cm right frontal porencephalic cyst. There is persistent mild midline shift. There is no CT evidence of acute cortical infarction. There is stable hyperdense material at the posterior aspect of the right frontal lobe medially There are patchy white matter hypodensities likely on a small vessel basis. There is no evidence of pathologic ventricular dilatation. There is mild mucosal disease within the right frontal sinus. There is a stable salt and pepper appearance of the calvarial vertex IMPRESSION: 1. Postsurgical changes of a right frontal craniotomy 2. 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 Interval development of a small right convexity subdural hygroma 4. Persistent mild right to left midline shift 5. No evidence of acute hemorrhage Electronically signed by: Jamie Lacy M.D. 05/23/2018 3:29 PM
[2018-05-23 15:36] LABS: Alanine Aminotransferase 15 U/L (12-78); Albumin Level 3.8 gm/dl (3.4-5.0); Aspartate Aminotransferase 47 U/L (15-37); BUN Creatinine Ratio 20.1 (10-20); Blood Urea Nitrogen 17 mg/dl (7-18); Calcium 8.6 mg/dl (8.5-10.1); Carbon Dioxide 29 mmol/L (21-32); Chloride 108 mmol/L (98-107); Est GFR (African American) 88.8; Est GFR (Non-African American) 76.6; Glucose 132 mg/dl (70-99); Magnesium 2.1 mg/dl (1.8-2.4); Potassium 3.3 mmol/L (3.5-5.1); Sodium 145 mmol/L (136-145)
--- NOTE | 2018-05-23 15:37 | CT Scan Report ---
CT angio head w con CLINICAL HISTORY: weakness HISTORY OF BRAIN TUMOR REMOVAL TECHNIQUE: CT angiography of the head was performed in a dynamic helical fashion during intravenous a dministration of 119 cc cc of Optiray 320. MIP imaging was performed. A dose lowering technique was u tilized adhering to the principles of ALARA. CT DOSE: COMPARISON STUDY: No previous studies for comparison. FINDINGS: There are no lesion suspicious for aneurysm. There are no major intracranial branch occlusi ons. The dural venous sinuses appear patent. There is a small right-sided subcutaneous dural hygroma. 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 There are postsurgical changes of a right frontal craniotomy. There is mild right to left midline shift. Inflammatory changes are present within the right frontal sinus. IMPRESSION: 1. No evidence of aneurysm. 2. No evidence of major intracranial branch occlusion or stenosis. 3. Postsurgical changes involve the right frontal lobe with a right frontal porencephalic cyst. 4. Small right convexity subdural hygroma. 5. Mild right to left midline shift. Electronically signed by: Jamie Lacy M.D. 05/23/2018 3:36 PM
--- NOTE | 2018-05-23 15:40 | CT Scan Report ---
CT angio neck with con CLINICAL HISTORY: weakness COMPARISON STUDY: No previous studies for comparison. TECHNIQUE: CT angiography was performed from the aortic arch to the skull base. MIP imaging was perfo rmed. The patient was scanned in a dynamic helical fashion during intravenous administration of 119 c c of Optiray 320. A dose lowering technique was utilized adhering to the principles of ALARA. CT DOSE: 1107.31 mGy.cm Technique: CT angiogram of the carotid and vertebral arteries was obtained using intravenous contrast and 3-D reconstruction. NASCET criteria was utilized. Findings: There is a multinodular thyroid gland. No dominant suspicious nodules are visualized. The common carotids have a medial retropharyngeal course. The right carotid revealed no evidence of aneurysm and no evidence of dissection. There is no evidenc e of hemodynamic significant stenosis. The left carotid revealed no evidence of hemodynamic significant stenosis. There is no evidence of an eurysm. There is no evidence of dissection. There is no evidence of hemodynamically significant vertebral stenosis. There is no evidence of verte bral dissection. IMPRESSION: No evidence of hemodynamically significant carotid or vertebral artery stenosis. No evidence of disse ction. Electronically signed by: Jamie Lacy M.D. 05/23/2018 3:39 PM
[2018-05-23 15:41] LABS: Albumin Globulin Ratio 1.1 (0.9-2); Alkaline Phosphatase 149 U/L (45-117); Bilirubin,Total 0.3 mg/dl (0.2-1); Globulin 3.6 gm/dl (2.5-4.0); Total Protein 7.4 gm/dl (6.4-8.2); Troponin I < 0.015 ng/ml (0-0.045)
--- NOTE | 2018-05-23 15:57 | XRay Report ---
XR chest 1V portable CLINICAL HISTORY: weakness COMPARISON STUDY: 03/03/2018 FINDINGS: The cardiac and mediastinal contours are normal. There is no evidence of focal pulmonary co nsolidation. There is no evidence of failure. No pleural effusions are visualized.[ IMPRESSION: No active disease in the chest. Electronically signed by: Jamie Lacy M.D. 05/23/2018 3:56 PM
[2018-05-23 15:58] LABS: INR 1.1 (0.9-1.1); Partial Thromboplastin Ratio 0.9; Partial Thromboplastin Time 24.2 Seconds (21.0-31.0); Prothrombin Time 10.8 Seconds (9.0-12.0)
--- NOTE | 2018-05-23 17:36 | History & Physical Report ---
Date of Service May 23, 2018 Assessment & Plan (1) Syncope: * This was not witnessed. Sister found patient unresponsive * EKG with no significant findings * Metabolically patient appears to be intact * Patient presented with hypotension but responded quickly to 1 L bolus * CT imaging of the head is negative * Check MRI * No arrhythmias in the ED * Admit to telemetry to monitor * Replete potassium; magnesium within normal limits * Patient denies palpitations, chest pain, lightheadedness, dizziness, seizure * Does not appear to be post ictal * Neurology consulted; consider EEG * Follow on telemetry (2) Stroke-like symptoms: * All imaging thus far has been negative * Symptoms are resolving * History of craniotomy for astrocytoma * Neurology consult * Check MRI * Aspirin 81 mg daily * PT OT evaluation and treatment (3) Hypokalemia: * Potassium 3.3 * Will give 40 mEq of potassium chloride * Repeat labs in the morning * Magnesium level 2.1 (4) Irritable bowel syndrome: * No recent diarrhea * Continue home meds * Follow clinically (5) History of seizures: * Patient reports it is been many years since her last seizure * Tegretol level slightly elevated at 15 * Continue home meds * No evidence of seizure * No witnessed seizure at home leading up to syncope or strokelike symptoms * Check MRI * Neurology consult (6) Hypothyroidism: * Continue levothyroxine (7) GERD (gastroesophageal reflux disease): * No current symptoms * Continue PPI and H2 zion (8) Hyperlipidemia: * Continue rosuvastatin (9) DVT prophylaxis: * No chemical prophylaxis due to strokelike symptoms and NIH stroke score of 2 * MARY wiseman/SCDs Please refer to Dr. Richards's addendum for any further recommendations History of Present Illness Chief Complaint: Stroke like symptoms with syncope Primary Care Provider: Jalil Miller Attending: Dr. Richards There is a 57-year-old female with a past medical history of astrocytoma status post craniectomy in 1996, seizures chronically on Tegretol, hypothyroidism, GERD, hypercholesterolemia, and irritable bowel syndrome. The patient presented with some confusion disorientation. Last known well was unknown. Her sister was at home and found the patient unresponsive at around 1 PM today. On presentation to the in the emergency department the patient had a left arm drift and weakness as well as a left facial droop. At this point, the patient has an NIH stroke scale of 2. The left arm drift is resolved. The patient still does have a slight left facial droop. She has no aphasia. Strength is still weak on the left but seems to be improving. The patient has good sensation. She is cognitive. She denies any new headache. She does report a neck ache when she raises her head but has no nuchal rigidity. She has no fever, chills, sweats, rigors. She reports that she has not had any recent seizures. She takes her medication as prescribed. She has no recent travel. She reports that her astrocytoma was operated on in 1996 in [place]. She has had no need for follow-up. She does live alone in an apartment and maintains her own activities of daily living. She has a son and a daughter that live within 30 minutes of her home who are active with her. She is a non-smoker. She previously smoked but quit smoking in 1991. She has no ethanol abuse history. Allergies Allergy/AdvReac Type Severity Reaction Status Date / Time Penicillins Allergy Intermediate HIVES Verified 05/23/18 16:32 phenytoin AdvReac Intermediate HIVES Verified 05/23/18 16:32 Home Medications Home Medications Medication Instructions Recorded Confirmed Type Saccharomyces boulardii [Florastor] 250 mg PO BID #20 cap 03/03/18 05/23/18 Rx carbamazepine 200 mg PO BID 03/03/18 05/23/18 History carbidopa-levodopa 1 tab PO TID 03/03/18 05/23/18 History cholecalciferol (vitamin D3) 1,000 unit PO DAILY 03/03/18 05/23/18 History [Vitamin D3] cyanocobalamin (vitamin B-12) 1,000 mcg PO DAILY 03/03/18 05/23/18 History [Vitamin B-12] duloxetine 60 mg PO DAILY 03/03/18 05/23/18 History gabapentin 300 mg PO HS 03/03/18 05/23/18 History hydroxyzine HCl 25 - 50 mg PO BID PRN 03/03/18 05/23/18 History levothyroxine 50 mcg PO DAILY 03/03/18 05/23/18 History linaclotide [Linzess] 72 mcg PO HS 03/03/18 05/23/18 History lysine [L-Lysine] 500 mg PO DAILY 03/03/18 05/23/18 History omeprazole 40 mg PO DAILY 03/03/18 05/23/18 History ranitidine HCl [Zantac] 150 mg PO BID 03/03/18 05/23/18 History rosuvastatin 20 mg PO HS 03/03/18 05/23/18 History Past Med/Surg History Medical History Hypokalemia Stroke-like symptoms Brain cancer Craniotomy performed in 1996 in [place] for an astrocytoma Anxiety Depression GERD (gastroesophageal reflux disease) Hyperlipidemia Hypothyroidism Irritable bowel syndrome Myocardial Infarction Osteoarthritis Seizure Syncope Surgical History History of craniotomy Family History Sister Family history of reaction to anesthesia Social History Preferred Language: Slovenian Communication Ability: Effective 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: No Beliefs That Will Affect Care: None marital status: Current Living Situation: Alone current occupational status: unemployed Other Information That Helps Us Care for You: No Feels Safe at Home: Yes Safety Concerns: Feels Safe At This Time Smoking Status: Former smoker Hx Alcohol Use: No Hx Substance Use: No Review of Systems All systems reviewed & are unremarkable except as noted in HPI & below Physical Exam Vital Signs (Past 24 Hours): Last Vital Signs Temp 36.7 C 05/23/18 14:38 Pulse 62 05/23/18 16:20 Resp 15 05/23/18 16:20 BP 136/93 05/23/18 16:17 Pulse Ox 99 05/23/18 16:20 Physical Exam: GENERAL : No acute distress. Pleasant. Good sense of humor HEAD: Well-healed surgical scar on the right side with alopecia that seems to be associated with surgery. No evidence of trauma, bleeding, abrasion. No bony deformities on palpation. No Yoo sign behind the ears EYES: No icterus, gaze conjugate. Pupils equal and reactive to light and accommodation. No nystagmus. No peripheral field cuts. NOSE: No evidence of epistaxis. MOUTH: No lesions or candidiasis. There is a left facial droop at rest and with smile. Tongue deviates very slightly to the left NECK: Supple. No stridor or carotid bruits appreciated LUNGS: CTA B/L, no wheezes, rales or rhonchi. Good inspirational effort HEART: Regular, rate controlled. No appreciation of ectopy ABDOMEN: Soft, NT, ND, BS Present. No abdominal pain with deep palpation. No guarding EXTREMITIES: No LE edema, pedal pulses intact. Left arm slightly weaker than the right but full range of motion. Left leg slightly weaker than right but able to do straight leg raise. NEURO: A&OX3. No pronator drift at the time of my examination. Positive for left facial droop. Positive for left deviation of tongue. No a aphasia. No slurred speech. Deep tendon reflexes 2 out of 4 bilaterally to the bicep, brachioradialis, and patellar tendons. Babinski not equivocal. Gait and Rom simon deferred. No nystagmus. Gaze conjugate. PERRLA. NIH scale at the time of my exam was 2 Results & Data Laboratory Results Abnormal lab results 05/23/18 05/23/18 05/23/18 Range/Units 14:28 14:28 14:28 WBC 4.63 L (4.8-10.8) K/uL Potassium 3.3 L (3.5-5.1) mmol/L Chloride 108 H (98-107) mmol/L BUN/Creatinine Ratio 20.1 H (10-20) Glucose 132 H (70-99) mg/dl AST 47 H (15-37) U/L Alkaline Phosphatase 149 H (45-117) U/L Carbamazepine 15.0 H* (4-12) mcg/ml Diagnostic Findings XR chest 1V portable CLINICAL HISTORY: weakness COMPARISON STUDY: 03/03/2018 FINDINGS: The cardiac and mediastinal contours are normal. There is no evidence of focal pulmonary consolidation. There is no evidence of failure. No pleural effusions are visualized.[ IMPRESSION: No active disease in the chest. Electronically signed by: Jmaie Lacy M.D. 05/23/2018 3:[address] angio head w con CLINICAL HISTORY: weakness HISTORY OF BRAIN TUMOR REMOVAL TECHNIQUE: CT angiography of the head was performed in a dynamic helical fashion during intravenous administration of 119 cc cc of Optiray 320. MIP imaging was performed. A dose lowering technique was utilized adhering to the principles of ALARA. CT DOSE: COMPARISON STUDY: No previous studies for comparison. FINDINGS: There are no lesion suspicious for aneurysm. There are no major intracranial branch occlusions. The dural venous sinuses appear patent. There is a small right-sided subcutaneous dural hygroma. 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 There are postsurgical changes of a right frontal craniotomy. There is mild right to left midline shift. Inflammatory changes are present within the right frontal sinus. IMPRESSION: 1. No evidence of aneurysm. 2. No evidence of major intracranial branch occlusion or stenosis. 3. Postsurgical changes involve the right frontal lobe with a right frontal porencephalic cyst. 4. Small right convexity subdural hygroma. 5. Mild right to left midline shift. Electronically signed by: Jamie Lacy M.D. 05/23/2018 3:[address] angio neck with con CLINICAL HISTORY: weakness COMPARISON STUDY: No previous studies for comparison. TECHNIQUE: CT angiography was performed from the aortic arch to the skull base. MIP imaging was performed. The patient was scanned in a dynamic helical fashion during intravenous administration of 119 cc of Optiray 320. A dose lowering technique was utilized adhering to the principles of ALARA. CT DOSE: 1107.31 mGy.cm Technique: CT angiogram of the carotid and vertebral arteries was obtained using intravenous contrast and 3-D reconstruction. NASCET criteria was utilized. Findings: There is a multinodular thyroid gland. No dominant suspicious nodules are visualized. The common carotids have a medial retropharyngeal course. The right carotid revealed no evidence of aneurysm and no evidence of dissection. There is no evidence of hemodynamic significant stenosis. The left carotid revealed no evidence of hemodynamic significant stenosis. There is no evidence of aneurysm. There is no evidence of dissection. There is no evidence of hemodynamically significant vertebral stenosis. There is no evidence of vertebral dissection. IMPRESSION: No evidence of hemodynamically significant carotid or vertebral artery stenosis. No evidence of dissection. Electronically signed by: Jamie Lacy M.D. 05/23/2018 3:[address] head/brain wo con CLINICAL HISTORY: Stroke like symptoms COMPARISON STUDY: 03/03/2018 TECHNIQUE: Axial CT of the brain is performed from the vertex to the skull base. IV contrast was not administered for this examination. A dose lowering technique was utilized adhering to the principles of ALARA. CT DOSE: FINDINGS: There are post right frontal craniotomy changes. There is a small right convexity subdural hygroma. This measures 7 mm in maximal thickness. There is a 6.3 cm right frontal porencephalic cyst. There is persistent mild midline shift. There is no CT evidence of acute cortical infarction. There is stable hyperdense material at the posterior aspect of the right frontal lobe medially There are patchy white matter hypodensities likely on a small vessel basis. There is no evidence of pathologic ventricular dilatation. There is mild mucosal disease within the right frontal sinus. There is a stable salt and pepper appearance of the calvarial vertex IMPRESSION: 1. Postsurgical changes of a right frontal craniotomy 2. 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 Interval development of a small right convexity subdural hygroma 4. Persistent mild right to left midline shift 5. No evidence of acute hemorrhage Electronically signed by: Jamie Lacy M.D. 05/23/2018 3:[address] head/brain wo con CLINICAL HISTORY: 57 years-old Female presenting with syncope, history of remote tumor removal. TECHNIQUE: Multidetector CT imaging of the head was performed without the use of intravenous contrast. IV contrast: None. A dose lowering technique was used consistent with the principles of ALARA (as low as reasonably achievable). COMPARISON: 09/23/2017. CT DOSE (mGy.cm): The estimated cumulative dose is 537.48 mGy.cm. FINDINGS: Orientation And Mobility Instructor topogram: Unremarkable. Redemonstration of the CSF density cyst replacing the majority of the right frontal parenchyma as on prior exam. This may communicate with the frontal horn of the right lateral ventricle or be encapsulated. Limited high density overlying material likely relates to postsurgical change, unchanged from prior. Plate and screw fixation of the pterional craniotomy. No hydrocephalus. Senescent calcifications in the right basal ganglia. No hemorrhage. Periventricular and subcortical white matter hypoattenuation, nonspecific but likely indicative of chronic small vessel ischemic change. No acute territorial infarct. Redemonstration of slight leftward shift of the septum pellucidum, which may represent mass effect from the left frontal cyst. Serosal thickening in the right frontal sinus unchanged. IMPRESSION: 1. No significant change compared to the prior study. No acute intracranial abnormality. Electronically signed by: Malik Delgado M.D. Code Status & VTE Plan Code Status Level I: Full code VTE Prophylaxis Plan VTE Prophylaxis will be ordered: Yes Critical Care Time Critical Care Time: No Supervising Physician Co-Signing Physician Notes I have seen and examined the patient and have discussed the case with the provider above. I agree with the assessment and plan as stated. DO Maurice
[2018-05-23] MEDS ORDERED: ONDANSETRON INJ 2 MG/ML 2 ML VIAL IV PRN (19:42)
[2018-05-23] MEDS ORDERED: MAGNESIUM HYDROXIDE SUSP 30 ML UDC PO PRN (19:42)
[2018-05-23] MEDS ORDERED: ACETAMINOPHEN 325 MG TAB PO PRN (19:42)
[2018-05-23] MEDS ORDERED: ALUMINUM/MAGNESIUM SUSP 30 ML UDC PO PRN (19:42)
[2018-05-23] MEDS ORDERED: POLYETHYLENE (MIRALAX) 17 GM PACK PO PRN (19:42)
[2018-05-23] MEDS ORDERED: POTASSIUM CHLORIDE 20 MEQ TABCR PO STA (20:54)
[2018-05-23] MEDS ORDERED: GABAPENTIN 300 MG CAP PO SCH (21:00)
[2018-05-23] MEDS ORDERED: LINACLOTIDE 72 MCG CAPSULE PO SCH (21:00)
[2018-05-23] MEDS ORDERED: ROSUVASTATIN CALCIUM 20 MG TAB PO SCH (21:00)
[2018-05-23] MEDS: SACCHAROMYCES BOULARDII 250 MG CAP PO SCH (21:06)
[2018-05-23] MEDS: CARBAMAZEPINE 200 MG TABCR PO SCH (21:07)
[2018-05-23] MEDS: CARBIDOPA/LEVODOPA 25/100MG TAB PO SCH (21:07)
[2018-05-23] MEDS ORDERED: GADOBUTROL 65ML VIAL IV PRN (21:54)
--- NOTE | 2018-05-23 22:11 | Magnetic Resonance Report ---
MRI OF THE BRAIN WITHOUT AND WITH IV CONTRAST CLINICAL HISTORY: Syncope, TIA, Hx Craniotomy COMPARISON STUDY: Head CT dated 05/23/2018 TECHNIQUE: MRI of the brain was performed from the vertex to the skull base utilizing various T1 and T2 weighted sequences. Following the IV administration of 6 mL of Gadavist contrast, additional enhan judy images were obtained. FINDINGS: Sagittal T1, axial diffusion, proton density and T2 weighted axial, coronal FLAIR, and pre and post a xial T1-weighted images were acquired. These were supplemented with post gadolinium coronal T1 weight ed images. There are postsurgical changes of a right frontal craniotomy. There is a 7.3 cm CSF density collectio n at the craniotomy site. There is a 7 mm right sided extra-axial subdural fluid collection, likely r epresenting a subdural hygroma or chronic subdural hematoma. There is a 1 cm of left to right midline shift. Axial diffusion-weighted images reveal no evidence of acute or subacute infarction. There is no evidence of ventricular dilatation. Proton density T2-weighted and FLAIR images reveal scattered foci of increased T2 signal within the w jonathan matter, likely on a small vessel basis. There are few small CSF density foci within the right fr ontoparietal vertex, likely representing lacunar infarcts. There are no abnormal flow voids. There are no foci of enhancement to indicate recurrent neoplasm. IMPRESSION: 1. Postsurgical changes of a right-sided craniotomy. 2. 7.3 cm CSF intensity lesion at the craniotomy site with mild mass effect and 1 cm right to left mi dline shift 3. No evidence of acute or subacute infarction 4. No evidence of tumor recurrence 5. Small right sided subdural hematoma/hygroma measuring 7 mm in thickness Electronically signed by: Jamie Lacy M.D. 05/23/2018 10:08 PM
[2018-05-23 22:54] LABS: Hematocrit (blood only) 39.5 % (37-47); Hemoglobin 13.8 g/dL (12.0-16.0); Immature Granulocytes # (auto) 0.01 K/uL (0.00-0.02); Immature Granulocytes % (auto) 0.2 %; Lymphocytes # (auto) 1.83 K/uL (1.2-3.4); Lymphocytes % (auto) 36.9 %; Mean Corpuscular Hgb Conc 34.9 g/dL (32-36); Mean Corpuscular Volume 90.4 fL (80-100); Monocytes # (auto) 0.39 K/uL (0.11-0.59); Monocytes % (auto) 7.9 %; Neutrophils # (auto) 2.73 K/uL (1.4-6.5); Platelet Count 190 K/uL (130-400); RDW Coefficient of Variation 13.3 % (11.5-14.5); RDW Standard Deviation 43.5 fL (36.4-46.3); Red Blood Count 4.37 M/uL (4.2-5.4); White Blood Count 4.96 K/uL (4.8-10.8)
[2018-05-23 23:31] LABS: BUN Creatinine Ratio 19.3 (10-20); Calcium 8.6 mg/dl (8.5-10.1); Creatinine Clr Calc Pharmacy 92.8 ml/min; Est GFR (African American) 120.8; Est GFR (Non-African American) 104.2; Potassium 3.6 mmol/L (3.5-5.1)
[2018-05-24] MEDS ORDERED: LEVOTHYROXINE SODIUM 50 MCG TABLET PO SCH (06:30)
[2018-05-24 08:41] LABS: Appearance Urine Cloudy (Clear); Bacteria Urine Automated Negative (Negative); Blood Urine Negative (Negative); Color Urine Dark Yellow; Epithelial Cell Urine Auto >30 /lpf (0-5); Glucose Urine UA Negative (Negative); Ketones Urine Trace (Negative); Leukocyte Esterase Urine 2+ (Negative); Nitrite Urine Positive (Negative); Protein Urine Negative (Negative); RBC Urine Automated 0-4 /hpf (0-4); Specific Gravity Urine > 1.045 (1.000-1.030); Urobilinogen Urine Negative (Negative); WBC Urine Automated >30 /hpf (0-5); pH Urine 5.5 (4.5-7.5)
[2018-05-24 08:45] LABS: Bilirubin Urine Negative (Negative); Ictotest Urine Negative (Negative)
[2018-05-24] MEDS ORDERED: NON-FORMULARY MEDICATION (Lysine [L-Lysine] 500 MG) PO SCH (09:00)
[2018-05-24] MEDS ORDERED: CHOLECALCIFEROL 1,000 UNITS TAB PO SCH (09:00)
[2018-05-24] MEDS ORDERED: CYANOCOBALAMIN 500 MCG TABLET (VITAMIN B-12) PO SCH (09:00)
[2018-05-24] MEDS ORDERED: ASPIRIN 81 MG ECTAB PO SCH (09:00)
[2018-05-24] MEDS ORDERED: PANTOprazole 40 MG TAB PO SCH (09:00)
[2018-05-24] MEDS ORDERED: DULOXETINE HCL 60 MG CAP PO SCH (09:00)
--- NOTE | 2018-05-24 10:54 | Hospitalist Progress Note ---
Date of Service May 24, 2018 Assessment & Plan (1) Syncope: Syncopal episodes with falls are frequent at home. Prodrome with lightheadedness per yesterday's event. ? orthostatic hypotension. (2) SDH (subdural hematoma): MRI reveals evidence of this as a new finding. In the setting of trauma will transfer to [place] to monitor closely in case therapeutic intervention is needed. (3) Dysphagia: Pt kept NPO per protocol with presence of facial droop. Per Neurosurg, they are ok with her eating. Awaiting formal speech path evaluation this morning. (4) History of seizures: She did have a BM in her chair after awakening from her transient LOC yesterday. No other loss of bowel or bladder function. Tegretol level 15, which is slightly elevated. No recent seizures noted. (5) Brain cancer: (6) DVT prophylaxis: SCDs [place] [facility] [place] [facility] Subjective 57-year-old female with history of astrocytoma. Presented to the ER after a syncope with collapse and loss of control of bowels. She has a history of seizures but no witnessed seizure activity. Episode was witnessed by family members. On my exam in the ER yesterday she only had left facial weakness. She was alert and oriented. Reflexes were intact. Strength was intact. She did report a frontal headache which is still present this morning. There have been no changes overnight regarding new focal neurologic deficits. Her other sister was in the room today and reports that she has had multiple falls at home, not just one fall in February prompting an ER visit which we discussed. MRI overnight reveals a 7 mm subdural hematoma. Recent MRI from outpatient radiology is being requested for comparison. No subdural was seen on CT in February or yesterday. Also noted by sister is a new progressive dysphasia. The patient reports coughing and choking with each meal. Since admission she has been n.p.o. and is getting a formal speech evaluation this morning which has not yet happened. Physical Exam Vital Signs (Past 24 Hours): Last Vital Signs Temp 36.6 C 05/24/18 06:58 Pulse 60 05/24/18 06:58 Resp 18 05/24/18 06:58 BP 114/74 05/24/18 06:58 Pulse Ox 99 05/24/18 06:58 CONSTITUTIONAL: WNWD, vitals as above, generally well-appearing EYES: EOMI bilaterally, PERRL, normal conjuctivae, no scleral icterus ENT: MMM RESPIRATORY: clear to auscultation bilaterally, no crackles, rales or wheezes, normal respiratory effort CARDIOVASCULAR: regular rate and rhythm, S1 and 2 heard without murmurs, gallops or rubs, no JVD, no peripheral edema GASTROINTESTINAL: normal bowel sounds, soft, nontender, nondistended MUSCULOSKELETAL: strength 5/5 throughout, head is normocephalic and atraumatic, neck supple, normal palpation of chest wall without tenderness SKIN: warm and dry NEUROLOGIC: patellar 2+ bilat. PERRL, EOMI, L sided facial droop with eyebrow sparing, no dysarthria. No sensation deficit. Normal cognition, normal speech PSYCHIATRIC: alert cooperative and oriented to person, place and time. LYMPHATIC: no LAD Results & Data Laboratory Results Short CBC 05/23/18 05/23/18 Range/Units 14:28 22:37 WBC 4.63 L 4.96 (4.8-10.8) K/uL Hgb 15.0 13.8 (12.0-16.0) g/dL Hct 42.5 39.5 (37-47) % Plt Count 208 190 (130-400) K/uL BMP 05/23/18 05/23/18 14:28 22:37 Sodium 145 145 Potassium 3.3 L 3.6 Chloride 108 H 110 H Carbon Dioxide 29 29 BUN 17 11 Creatinine 0.85 0.56 L Glucose 132 H 83 Calcium 8.6 8.6 Cardiac Enzymes 05/23/18 Range/Units 14:28 Troponin I < 0.015 (0-0.045) ng/ml Liver Function 05/23/18 Range/Units 14:28 Total Bilirubin 0.3 (0.2-1) mg/dl AST 47 H (15-37) U/L ALT 15 (12-78) U/L Alkaline Phosphatase 149 H (45-117) U/L Albumin 3.8 (3.4-5.0) gm/dl Urine 05/24/18 Range/Units 08:15 Urine Color Dark Yellow Urine Appearance Cloudy H (Clear) Urine pH 5.5 (4.5-7.5) Ur Specific [facility] > 1.045 H (1.000-1.030) Urine Protein Negative (Negative) Urine Glucose (UA) Negative (Negative) Medications Administered Current Inpatient Medications Acetaminophen (Tylenol) 650 mg PO Q4H PRN PRN Reason: Pain or Fever Stop: 06/22/18 19:41 Al Hydrox/Mg Hydrox/Simethicone (Maalox) 15 ml PO Q4H PRN PRN Reason: Dyspepsia Stop: 06/22/18 19:41 Aspirin (Ecotrin Ectab) 81 mg PO QAM JOVANY Stop: 06/23/18 08:59 Carbamazepine (Tegretol Xr) 200 mg PO BID JOAVNY Stop: 06/22/18 20:59 Last Admin: 05/23/18 21:07 Dose: Not Given Documented by: Carbidopa/Levodopa (Sinemet 25/100 Mg) 1 tab PO TID JOVANY Stop: 06/22/18 20:59 Last Admin: 05/23/18 21:07 Dose: Not Given Documented by: Cyanocobalamin (Vitamin B-12) 1,000 mcg PO DAILY JOVANY Stop: 06/23/18 08:59 Duloxetine HCl (Cymbalta) 60 mg PO DAILY JOVANY Stop: 06/23/18 08:59 Gabapentin (Neurontin) 300 mg PO HS [facility] Stop: 06/22/18 20:59 Last Admin: 05/23/18 21:07 Dose: Not Given Documented by: Gadobutrol (Gadavist 65ml) 6 ml IV ONCE PRN PRN Reason: Interaction Checking Stop: 05/27/18 21:53 Last Admin: 05/23/18 21:54 Dose: 6 ml Documented by: Hydroxyzine HCl (Vistaril) 25 mg PO BID PRN PRN Reason: Itching Stop: 06/22/18 19:41 Sodium Chloride (Nss 1000ml) 1,000 mls @ 50 mls/hr IV .Q20H JOVANY Stop: 06/22/18 15:14 Last Admin: 05/23/18 21:50 Dose: 50 mls/hr Documented by: Ioversol (Optiray 320 125ml) 119 ml IV ONCE PRN PRN Reason: Interaction Checking Stop: 05/27/18 15:21 Last Admin: 05/23/18 15:23 Dose: 119 ml Documented by: Levothyroxine Sodium (Synthroid) 50 mcg PO DAILYBB JOVANY Stop: 06/23/18 06:29 Last Admin: 05/24/18 05:19 Dose: Not Given Documented by: Linaclotide (Linzess) 72 mcg PO HS [facility] Stop: 06/22/18 20:59 Last Admin: 05/23/18 21:06 Dose: Not Given Documented by: Magnesium Hydroxide (Milk Of Magnesia) 30 ml PO Q12H PRN PRN Reason: Constipation Stop: 06/22/18 19:41 Ondansetron HCl (Zofran) 4 mg IV Q6H PRN PRN Reason: Nausea Stop: 06/22/18 19:41 Pantoprazole Sodium (Protonix) 40 mg PO DAILY [facility] Stop: 06/23/18 08:59 Polyethylene Glycol (Miralax Powder Packet) 17 gm PO DAILY PRN PRN Reason: Constipation Stop: 06/22/18 19:41 Ranitidine HCl (Zantac) 150 mg PO BID [facility] Stop: 06/22/18 20:59 Last Admin: 05/23/18 21:07 Dose: Not Given Documented by: Rosuvastatin Calcium (Crestor) 20 mg PO HS [facility] Stop: 06/22/18 20:59 Last Admin: 05/23/18 21:06 Dose: Not Given Documented by: Saccharomyces Boulardii (Florastor) 250 mg PO BID [facility] Stop: 06/22/18 20:59 Last Admin: 05/23/18 21:06 Dose: Not Given Documented by: Vitamin D (Vitamin D3) 1,000 units PO DAILY [facility] Stop: 06/23/18 08:59 (1) Syncope Syncope type: unspecified Qualified Code(s): R55 - Syncope and collapse
[2018-05-24 11:27] VITALS: BP 130/83; PULSE 71; TEMP 98.2; O2SAT 90
--- NOTE | 2018-05-24 11:30 | Communication Note ---
Date of Service: May 24, 2018 TRANSFER SUMMARY: Patient is a 57-year-old female with a history of astrocytoma status post craniotomy in 1996 who presented to the [facility] emergency room after a witnessed syncopal event that morning. The patient reports feeling lightheaded then lost consciousness for a few seconds while she was sitting down to eat breakfast at home. Her sister witnessed the event and noted that she looked pale prior to the episode. When the patient regained consciousness she said that she was lucid and not confused, and passed a small bowel movement while still sitting in her chair. The patient was reports feeling extremely fatigued for the last couple of days and per her other sister she has had recent multiple recent falls at home in the last couple of months. No recent medication changes are noted. She now has a left-sided facial droop with eyebrow sparing and no changes in sensation since the episode. Work-up revealed a noncontrasted head CT with no significant change compared to the prior study performed in February 2018, when she was in the ER for a separate episode of syncope. Overnight an MRI was performed revealing a 7.3 cm CSF intensity lesion at the craniotomy site with mild mass-effect and 1 cm right to left midline shift, no evidence of acute or subacute infarction, no evidence of tumor recurrence, and a small 7 mm in thickness right-sided subdural hematoma/hygroma. Prior MRI imaging is not currently available as this was performed recently at an outpatient facility. Records have been requested. Neurosurgery in [place], who has seen her before, was contacted and case was reviewed. The patient will be transferred for further close monitoring at [facility]. She notably has no new deficits overnight but does have persistent left sided facial droop with eyebrow sparing. The patient does note a frequent issue with coughing and choking while eating over the last couple of months, and her sister corroborates this. She has not been given a swallow study yet and has been n.p.o. pending speech pathology evaluation. She does report a headache that is in the frontal lobe area, in the midline. She denied any visual changes. She has no evidence of dysarthria. Gait was not assessed secondary to concern of falls, and now will defer physical therapy evaluation in the setting of possible acute head bleed. Regarding lab work CBC is normal INR is 1.1, electrolytes are normal after some potassium replacement yesterday for K of 3.3 now 3.6. Kidney function is normal. Urine was assessed and was cloudy and concentrated positive for nitrites, positive for leukocyte esterase, greater than 30 epithelial cells, > 30 white blood cells, and no bacteria. Urine culture was pending at time of discharge. She was not given antibiotics empirically, and denied any urinary tract infection symptoms. No other infectious symptoms noted. She is on carbamazepine prophylactically for seizures and level was 15 which is slightly higher than the reference range at this facility lab. Other imaging revealed a chest x-ray that was negative for any acute diseaseand a CT angiogram of the head and neck revealed no evidence of aneurysm, no evidence of major intracranial branch occlusion or stenosis, postsurgical changes involving the right frontal lobe with a right frontal porencephalic cyst, small right co nvexity subdural hygroma, mid right to left midline shift, no evidence of hemodynamically significant carotid or vertebral artery stenosis and no evidence of neck artery dissection. An EKG revealed normal sinus rhythm with a rate of 70 without ischemic changes. She will be transferred in guarded condition after traumatic injury to her head resulting in 7 mm subdural hematoma with 1 cm midline shift. She remains hemodynamically stable and will be transferred via [facility]. Accepting physician is Dr. Gannon. Current Inpatient Medications Acetaminophen (Tylenol) 650 mg PO Q4H PRN PRN Reason: Pain or Fever Stop: 06/22/18 19:41 Al Hydrox/Mg Hydrox/Simethicone (Maalox) 15 ml PO Q4H PRN PRN Reason: Dyspepsia Stop: 06/22/18 19:41 Aspirin (Ecotrin Ectab) 81 mg PO QAM [facility] Stop: 06/23/18 08:59 Carbamazepine (Tegretol Xr) 200 mg PO BID [facility] Stop: 06/22/18 20:59 Last Admin: 05/23/18 21:07 Dose: Not Given Documented by: Carbidopa/Levodopa (Sinemet 25/100 Mg) 1 tab PO TID [facility] Stop: 06/22/18 20:59 Last Admin: 05/23/18 21:07 Dose: Not Given Documented by: Cyanocobalamin (Vitamin B-12) 1,000 mcg PO DAILY [facility] Stop: 06/23/18 08:59 Duloxetine HCl (Cymbalta) 60 mg PO DAILY [facility] Stop: 06/23/18 08:59 Gabapentin (Neurontin) 300 mg PO HS [facility] Stop: 06/22/18 20:59 Last Admin: 05/23/18 21:07 Dose: Not Given Documented by: Gadobutrol (Gadavist 65ml) 6 ml IV ONCE PRN PRN Reason: Interaction Checking Stop: 05/27/18 21:53 Last Admin: 05/23/18 21:54 Dose: 6 ml Documented by: Hydroxyzine HCl (Vistaril) 25 mg PO BID PRN PRN Reason: Itching Stop: 06/22/18 19:41 Sodium Chloride (Nss 1000ml) 1,000 mls @ 50 mls/hr IV .Q20H [facility] Stop: 06/22/18 15:14 Last Admin: 05/23/18 21:50 Dose: 50 mls/hr Documented by: Ioversol (Optiray 320 125ml) 119 ml IV ONCE PRN PRN Reason: Interaction Checking Stop: 05/27/18 15:21 Last Admin: 05/23/18 15:23 Dose: 119 ml Documented by: [facility]ine [facility]: 06/23/18 06:29 Last Admin: 05/24/18 05:19 Dose: Not Given Documented by: Linaclotide (Linzess) 72 mcg PO [facility] Stop: 06/22/18 20:59 Last Admin: 05/23/18 21:06 Dose: Not Given Documented by: Magnesium Hydroxide (Milk Of Magnesia) 30 ml PO Q12H PRN PRN Reason: Constipation Stop: 06/22/18 19:41 Ondansetron HCl (Zofran) 4 mg IV Q6H PRN PRN Reason: Nausea Stop: 06/22/18 19:41 Pantoprazole Sodium (Protonix) 40 mg PO DAILY [facility] Stop: 06/23/18 08:59 Polyethylene Glycol (Miralax Powder Packet) 17 gm PO DAILY PRN PRN Reason: Constipation Stop: 06/22/18 19:41 Ranitidine HCl (Zantac) 150 mg PO BID [facility] Stop: 06/22/18 20:59 Last Admin: 05/23/18 21:07 Dose: Not Given Documented by: Rosuvastatin Calcium (Crestor) 20 mg PO [facility] Stop: 06/22/18 20:59 Last Admin: 05/23/18 21:06 Dose: Not Given Documented by: Saccharomyces Boulardii (Florastor) 250 mg PO BID [facility] Stop: 06/22/18 20:59 Last Admin: 05/23/18 21:06 Dose: Not Given Documented by: Vitamin D (Vitamin D3) 1,000 units PO DAILY [facility] Stop: 06/23/18 08:59
--- NOTE | 2018-05-24 11:44 | Discharge Summary ---
Date of Service May 24, 2018 Admission HPI Per Admitting Provider Attending: Dr. Richards There is a 57-year-old female with a past medical history of astrocytoma status post craniectomy in 1996, seizures chronically on Tegretol, hypothyroidism, GERD, hypercholesterolemia, and irritable bowel syndrome. The patient presented with some confusion disorientation. Last known well was unknown. Her sister was at home and found the patient unresponsive at around 1 PM today. On presentation to the in the emergency department the patient had a left arm drift and weakness as well as a left facial droop. At this point, the patient has an NIH stroke scale of 2. The left arm drift is resolved. The patient still does have a slight left facial droop. She has no aphasia. Strength is still weak on the left but seems to be improving. The patient has good sensation. She is cognitive. She denies any new headache. She does report a neck ache when she raises her head but has no nuchal rigidity. She has no fever, chills, sweats, rigors. She reports that she has not had any recent seizures. She takes her medication as prescribed. She has no recent travel. She reports that her astrocytoma was operated on in 1996 in [place]. She has had no need for follow-up. She does live alone in an apartment and maintains her own activities of daily living. She has a son and a daughter that live within 30 minutes of her home who are active with her. She is a non-smoker. She previously smoked but quit smoking in 1991. She has no ethanol abuse history. Admission Exam Per Admitting Provider Temp 36.7 C 05/23/18 14:38 Pulse 62 05/23/18 16:20 Resp 15 05/23/18 16:20 BP 136/93 05/23/18 16:17 Pulse Ox 99 05/23/18 16:20 Physical Exam: GENERAL : No acute distress. Pleasant. Good sense of humor HEAD: Well-healed surgical scar on the right side with alopecia that seems to be associated with surgery. No evidence of trauma, bleeding, abrasion. No bony deformities on palpation. No Yoo sign behind the ears EYES: No icterus, gaze conjugate. Pupils equal and reactive to light and accommodation. No nystagmus. No peripheral field cuts. NOSE: No evidence of epistaxis. MOUTH: No lesions or candidiasis. There is a left facial droop at rest and with smile. Tongue deviates very slightly to the left NECK: Supple. No stridor or carotid bruits appreciated LUNGS: CTA B/L, no wheezes, rales or rhonchi. Good inspirational effort HEART: Regular, rate controlled. No appreciation of ectopy ABDOMEN: Soft, NT, ND, BS Present. No abdominal pain with deep palpation. No guarding EXTREMITIES: No LE edema, pedal pulses intact. Left arm slightly weaker than the right but full range of motion. Left leg slightly weaker than right but able to do straight leg raise. NEURO: A&OX3. No pronator drift at the time of my examination. Positive for left facial droop. Positive for left deviation of tongue. No a aphasia. No slurred speech. Deep tendon reflexes 2 out of 4 bilaterally to the bicep, brachioradialis, and patellar tendons. Babinski not equivocal. Gait and Romberg deferred. No nystagmus. Gaze conjugate. PERRLA. NIH scale at the time of my exam was 2 Principal Diagnosis Neurologic deficit after fall with 7mm SDH h/o astrocytoma s/p surgery Discharge Data Allergies Allergy/AdvReac Type Severity Reaction Status Date / Time Penicillins Allergy Intermediate HIVES Verified 05/23/18 16:32 phenytoin AdvReac Intermediate HIVES Verified 05/23/18 16:32 Consultations 05/23/18 17:07 ED Decision to Admit Stat 05/23/18 19:42 Consult Case Management - Discharge Planning Routine Consult Neurology Routine 05/24/18 11:44 Burn CD for patient Stat Ordered Studies 05/23/18 15:02 CT head/brain wo con Stat 05/23/18 15:03 CT angio head w con Stat CT angio neck with con Stat 05/23/18 19:42 MR brain wo/w con Stat Hospital Course (1) Syncope: (2) SDH (subdural hematoma): (3) Dysphagia: (4) History of seizures: (5) Brain cancer: Date of Service: May 24, 2018 TRANSFER SUMMARY: Patient is a 57-year-old female with a history of astrocytoma status post cr aniotomy in 1996 who presented to the [facility] emergency room after a witnessed syncopal event that morning. The patient reports feeling lightheaded then lost consciousness for a few seconds while she was sitting down to eat breakfast at home. Her sister witnessed the event and noted that she looked pale prior to the episode. When the patient regained consciousness she said that she was lucid and not confused, and passed a small bowel movement while still sitting in her chair. The patient was reports feeling extremely fatigued for the last couple of days and per her other sister she has had recent multiple recent falls at home in the last couple of months. No recent medication changes are noted. She now has a left-sided facial droop with eyebrow sparing and no changes in sensation since the episode. Work-up revealed a noncontrasted head CT with no significant change compared to the prior study performed in February 2018, when she was in the ER for a separate episode of syncope. Overnight an MRI was performed revealing a 7.3 cm CSF intensity lesion at the craniotomy site with mild mass-effect and 1 cm right to left midline shift, no evidence of acute or subacute infarction, no evidence of tumor recurrence, and a small 7 mm in thickness right-sided subdural hematoma/hygroma. Prior MRI imaging is not currently available as this was performed recently at an outpatient facility. Records have been requested. Neurosurgery in [place], who has seen her before, was contacted and case was reviewed. The patient will be transferred for further close monitoring at [facility]. She notably has no new deficits overnight but does have persistent left sided facial droop with eyebrow sparing. The patient does note a frequent issue with coughing and choking while eating over the last couple of months, and her sister corroborates this. She has not been given a swallow study yet and has been n.p.o. pending speech pathology evaluation. She does report a headache that is in the frontal lobe area, in the midline. She denied any visual changes. She has no evidence of dysarthria. Gait was not assessed secondary to concern of falls, and now will defer physical therapy evaluation in the setting of possible acute head bleed. Regarding lab work CBC is normal INR is 1.1, electrolytes are normal after some potassium replacement yesterday for K of 3.3 now 3.6. Kidney function is normal. Urine was assessed and was cloudy and concentrated positive for nitrites, positive for leukocyte esterase, greater than 30 epithelial cells, > 30 white blood cells, and no bacteria. Urine culture was pending at time of discharge. She was not given antibiotics empirically, and denied any urinary tract infection symptoms. No other infectious symptoms noted. She is on carbamazepine prophylactically for seizures and level was 15 which is slightly higher than the reference range at this facility lab. Other imaging revealed a chest x-ray that was negative for any acute diseaseand a CT angiogram of the head and neck revealed no evidence of aneurysm, no evidence of major intracranial branch occlusion or stenosis, postsurgical changes involving the right frontal lobe with a right frontal porencephalic cyst, small right convexity subdural hygroma, mid right to left midline shift, no evidence of hemodynamically significant carotid or vertebral artery stenosis and no evidence of neck artery dissection. An EKG revealed normal sinus rhythm with a rate of 70 without ischemic changes. She will be transferred in guarded condition after traumatic injury to her head resulting in 7 mm subdural hematoma with 1 cm midline shift. She remains hemodynamically stable and will be transferred via ACLS. Accepting physician is Dr. Gannon. Current Inpatient Medications Acetaminophen (Tylenol) 650 mg PO Q4H PRN PRN Reason: Pain or Fever Stop: 06/22/18 19:41 Al Hydrox/Mg Hydrox/Simethicone (Maalox) 15 ml PO Q4H PRN PRN Reason: Dyspepsia Stop: 06/22/18 19:41 Aspirin (Ecotrin Ectab) 81 mg PO QAM [facility] Stop: 06/23/18 08:59 Carbamazepine (Tegretol Xr) 200 mg PO BID JOVANY Stop: 06/22/18 20:59 Last Admin: 05/23/18 21:07 Dose: Not Given Documented by: Carbidopa/Levodopa (Sinemet 25/100 Mg) 1 tab PO TID JOVANY Stop: 06/22/18 20:59 Last Admin: 05/23/18 21:07 Dose: Not Given Documented by: Cyanocobalamin (Vitamin B-12) 1,000 mcg PO DAILY J[facility] Stop: 06/23/18 08:59 Duloxetine HCl (Cymbalta) 60 mg PO DAILY [facility] Stop: 06/23/18 08:59 Gabapentin (Neurontin) 300 mg PO HS [facility]ANY Stop: 06/22/18 20:59 Last Admin: 05/23/18 21:07 Dose: Not Given Documented by: Gadobutrol (Gadavist 65ml) 6 ml IV ONCE PRN PRN Reason: Interaction Checking Stop: 05/27/18 21:53 Last Admin: 05/23/18 21:54 Dose: 6 ml Documented by: Hydroxyzine HCl (Vistaril) 25 mg PO BID PRN PRN Reason: Itching Stop: 06/22/18 19:41 Sodium Chloride (Nss 1000ml) 1,000 mls @ 50 mls/hr IV .Q20H JOVANY Stop: 06/22/18 15:14 Last Admin: 05/23/18 21:50 Dose: 50 mls/hr Documented by: Ioversol (Optiray 320 125ml) 119 ml IV ONCE PRN PRN Reason: Interaction Checking Stop: 05/27/18 15:21 Last Admin: 05/23/18 15:23 Dose: 119 ml Documented by: Levothyroxine Sodium (Synthroid) 50 mcg PO DAILYBB [facility] Stop: 06/23/18 06:29 Last Admin: 05/24/18 05:19 Dose: Not Given Documented by: Linaclotide (Linzess) 72 mcg PO HS [facility] Stop: 06/22/18 20:59 Last Admin: 05/23/18 21:06 Dose: Not Given Documented by: Magnesium Hydroxide (Milk Of Magnesia) 30 ml PO Q12H PRN PRN Reason: Constipation Stop: 06/22/18 19:41 Ondansetron HCl (Zofran) 4 mg IV Q6H PRN PRN Reason: Nausea Stop: 06/22/18 19:41 Pantoprazole Sodium (Protonix) 40 mg PO DAILY [facility] Stop: 06/23/18 08:59 Polyethylene Glycol (Miralax Powder Packet) 17 gm PO DAILY PRN PRN Reason: Constipation Stop: 06/22/18 19:41 Ranitidine HCl (Zantac) 150 mg PO BID [facility] Stop: 06/22/18 20:59 Last Admin: 05/23/18 21:07 Dose: Not Given Documented by: Rosuvastatin Calcium (Crestor) 20 mg PO HS [facility] Stop: 06/22/18 20:59 Last Admin: 05/23/18 21:06 Dose: Not Given Documented by: Saccharomyces Boulardii (Florastor) 250 mg PO BID [facility] Stop: 06/22/18 20:59 Last Admin: 05/23/18 21:06 Dose: Not Given Documented by: Vitamin D (Vitamin D3) 1,000 units PO DAILY [facility] Stop: 06/23/18 08:59 Date of Service: May 24, 2018 TRANSFER SUMMARY: Patient is a 57-year-old female with a history of astrocytoma status post cr aniotomy in 1996 who presented to the [facility] emergency room after a witnessed syncopal event that morning. The patient reports feeling lightheaded then lost consciousness for a few seconds while she was sitting down to eat breakfast at home. Her sister witnessed the event and noted that she looked pale prior to the episode. When the patient regained consciousness she said that she was lucid and not confused, and passed a small bowel movement while still sitting in her chair. The patient was reports feeling extremely fatigued for the last couple of days and per her other sister she has had recent multiple recent falls at home in the last couple of months. No recent medication changes are noted. She now has a left-sided facial droop with eyebrow sparing and no changes in sensation since the episode. Work-up revealed a noncontrasted head CT with no significant change compared to the prior study performed in February 2018, when she was in the ER for a separate episode of syncope. Overnight an MRI was performed revealing a 7.3 cm CSF intensity lesion at the craniotomy site with mild mass-effect and 1 cm right to left midline shift, no evidence of acute or subacute infarction, no evidence of tumor recurrence, and a small 7 mm in thickness right-sided subdural hematoma/hygroma. Prior MRI imaging is not currently available as this was performed recently at an outpatient facility. Records have been requested. Neurosurgery in [place], who has seen her before, was contacted and case was reviewed. The patient will be transferred for further close monitoring at [facility]. She notably has no new deficits overnight but does have persistent left sided facial droop with eyebrow sparing. The patient does note a frequent issue with coughing and choking while eating over the last couple of months, and her sister corroborates this. She has not been given a swallow study yet and has been n.p.o. pending speech pathology evaluation. She does report a headache that is in the frontal lobe area, in the midline. She denied any visual changes. She has no evidence of dysarthria. Gait was not assessed secondary to concern of falls, and now will defer physical therapy evaluation in the setting of possible acute head bleed. Regarding lab work CBC is normal INR is 1.1, electrolytes are normal after some potassium replacement yesterday for K of 3.3 now 3.6. Kidney function is normal. Urine was assessed and was cloudy and concentrated positive for nitrites, positive for leukocyte esterase, greater than 30 epithelial cells, > 30 white blood cells, and no bacteria. Urine culture was pending at time of discharge. She was not given antibiotics empirically, and denied any urinary tract infection symptoms. No other infectious symptoms noted. She is on carbamazepine prophylactically for seizures and level was 15 which is slightly higher than the reference range at this facility lab. Other imaging revealed a chest x-ray that was negative for any acute diseaseand a CT angiogram of the head and neck revealed no evidence of aneurysm, no evidence of major intracranial branch occlusion or stenosis, postsurgical changes involving the right frontal lobe with a right frontal porencephalic cyst, small right convexity subdural hygroma, mid right to left midline shift, no evidence of hemodynamically significant carotid or vertebral artery stenosis and no evidence of neck artery dissection. An EKG revealed normal sinus rhythm with a rate of 70 without ischemic changes. She will be transferred in guarded condition after traumatic injury to her head resulting in 7 mm subdural hematoma with 1 cm midline shift. She remains hemodynamically stable and will be transferred via ACLS. Accepting physician is Dr. Gannon. Current Inpatient Medications Acetaminophen (Tylenol) 650 mg PO Q4H PRN PRN Reason: Pain or Fever Stop: 06/22/18 19:41 Al Hydrox/Mg Hydrox/Simethicone (Maalox) 15 ml PO Q4H PRN PRN Reason: Dyspepsia Stop: 06/22/18 19:41 Aspirin (Ecotrin Ectab) 81 mg PO QAM [facility] Stop: 06/23/18 08:59 Carbamazepine (Tegretol Xr) 200 mg PO BID [facility] Stop: 06/22/18 20:59 Last Admin: 05/23/18 21:07 Dose: Not Given Documented by: Carbidopa/Levodopa (Sinemet 25/100 Mg) 1 tab PO TID [facility] Stop: 06/22/18 20:59 Last Admin: 05/23/18 21:07 Dose: Not Given Documented by: Cyanocobalamin (Vitamin B-12) 1,000 mcg PO DAILY [facility] Stop: 06/23/18 08:59 Duloxetine HCl (Cymbalta) 60 mg PO DAILY [facility] Stop: 06/23/18 08:59 Gabapentin (Neurontin) 300 mg PO HS [facility] Stop: 06/22/18 20:59 Last Admin: 05/23/18 21:07 Dose: Not Given Documented by: Gadobutrol (Gadavist 65ml) 6 ml IV ONCE PRN PRN Reason: Interaction Checking Stop: 05/27/18 21:53 Last Admin: 05/23/18 21:54 Dose: 6 ml Documented by: Hydroxyzine HCl (Vistaril) 25 mg PO BID PRN PRN Reason: Itching Stop: 06/22/18 19:41 Sodium Chloride (Nss 1000ml) 1,000 mls @ 50 mls/hr IV .Q20H [facility] Stop: 06/22/18 15:14 Last Admin: 05/23/18 21:50 Dose: 50 mls/hr Documented by: Ioversol (Optiray 320 125ml) 119 ml IV ONCE PRN PRN Reason: Interaction Checking Stop: 05/27/18 15:21 Last Admin: 05/23/18 15:23 Dose: 119 ml Documented by: Levothyroxine Sodium (Synthroid) 50 mcg PO DAILY [facility] Stop: 06/23/18 06:29 Last Admin: 05/24/18 05:19 Dose: Not Given Documented by: Linaclotide (Linzess) 72 mcg PO [facility] Stop: 06/22/18 20:59 Last Admin: 05/23/18 21:06 Dose: Not Given Documented by: Magnesium Hydroxide (Milk Of Magnesia) 30 ml PO Q12H PRN PRN Reason: Constipation Stop: 06/22/18 19:41 Ondansetron HCl (Zofran) 4 mg IV Q6H PRN PRN Reason: Nausea Stop: 06/22/18 19:41 Pantoprazole Sodium (Protonix) 40 mg PO DAILY [facility] Stop: 06/23/18 08:59 Polyethylene Glycol (Miralax Powder Packet) 17 gm PO DAILY PRN PRN Reason: Constipation Stop: 06/22/18 19:41 Ranitidine HCl (Zantac) 150 mg PO BID [facility] Stop: 06/22/18 20:59 Last Admin: 05/23/18 21:07 Dose: Not Given Documented by: Rosuvastatin Calcium (Crestor) 20 mg PO [facility] Stop: 06/22/18 20:59 Last Admin: 05/23/18 21:06 Dose: Not Given Documented by: Stephanie Garciadii (Florastor) 250 mg PO BID [facility] Stop: 06/22/18 20:59 Last Admin: 05/23/18 21:06 Dose: Not Given Documented by: Vitamin D (Vitamin D3) 1,000 units PO DAILY [facility] Stop: 06/23/18 08:59 Total Time Total Time Spent Total Time Spent (In Minutes): 60 Total Time Includes: Examination of the Patient, Discharge Planning, Medication Reconciliation and Communication With Other Providers Discharge Plan Discharge Items Patient Disposition: Transfer Acute Care Hospital Reason For Visit: TIA Discharge Diagnosis: Neurologic deficit after fall with 7mm SDH h/o astrocytoma s/p surgery Condition: Serious Discharge Goals: Diagnostic testing and Therapeutic intervention Activity: Resume your previous activity Non-emergency contact: Primary Care Provider Call non-emergency contact if: you have any medication questions, your symptoms worsen, your pain is not controlled, your pain is worsening, your pain is unusual for you, your pain is concerning for you and you have a fever Follow-up/Referrals: Jalil Miller [Primary Care Provider] - Diet: Nothing by mouth Addtl Provider Instructions: You are being transferred to [facility] in [place], [place]. It is recommended that you follow-up with your primary care physician within one week of discharge. It was a pleasure taking care of you! Please call if you have any questions or problems. You can reach a [facility] hospitalist on duty at [facility] 24 hours a day by calling [phone]. Take care of yourself. Vira Richards, DO [facility] Hospitalist Prescriptions: Continued cyanocobalamin (vitamin B-12) [Vitamin B-12] 1,000 mcg Tablet 1,000 mcg PO DAILY RF: 0 omeprazole 40 mg Capsule,Delayed Release(Dr/Ec) 40 mg PO DAILY RF: 0 carbamazepine 200 mg Tablet Extended Release 12 Hr 200 mg PO BID RF: 0 levothyroxine 50 mcg Tablet 50 mcg PO DAILY RF: 0 ranitidine HCl [Zantac] 150 mg Tablet 150 mg PO BID RF: 0 gabapentin 300 mg Capsule 300 mg PO HS RF: 0 hydroxyzine HCl 25 mg Tablet 25 - 50 mg PO BID PRN (Reason: Itching) RF: 0 carbidopa-levodopa 25-100 mg Tablet 1 tab PO TID RF: 0 lysine [L-Lysine] 500 mg Tablet 500 mg PO DAILY RF: 0 cholecalciferol (vitamin D3) [Vitamin D3] 1,000 unit Capsule 1,000 unit PO DAILY RF: 0 rosuvastatin 20 mg Tablet 20 mg PO HS RF: 0 duloxetine 60 mg Capsule,Delayed Release(Dr/Ec) 60 mg PO DAILY RF: 0 Linzess 72 mcg Capsule 72 mcg PO HS RF: 0 Florastor 250 mg capsule 250 mg PO BID Qty: 20 RF: 0 Stand-Alone Forms: [facility] Discharge Orders: Discharge Order (Routine); Ordered 05/24/18 Ordered By: Vira Richards Admission Data Admit Date/Time: 05/23/18 18:04 Attending Provider: Vira Richards Admit Provider: Vira Richards Primary Care Provider: Jalil Miller Other Providers: Vira Richards Service: Telemetry Other Interventions: Discharge Summary Assessment (RN) Last Done: 05/24/18 12:32 DC Date/Time DO NOT enter until pt leaves facility: 05/24/18 14:29
[2018-05-24] MEDS: CARBIDOPA/LEVODOPA 25/100MG TAB PO SCH (12:56)
[2018-05-24] MEDS: SACCHAROMYCES BOULARDII 250 MG CAP PO SCH (12:56)
[2018-05-24] MEDS: CARBAMAZEPINE 200 MG TABCR PO SCH (12:57)
== END 2018-05-24 14:29 | disposition short-term general hospital (02) ==
LOC: 2S 14:58 → ED 14:58 → 2S 19:04

== ENCOUNTER 2018-12-20 12:26 | Inpatient (IN) ==
[2018-12-20] MEDS ORDERED: SODIUM CHLORIDE 0.9% 1000ML 1,000 ML IV SCH (12:30)
[2018-12-20] MEDS ORDERED: OPTIRAY 320 125ml IV PRN (12:31)
--- NOTE | 2018-12-20 12:49 | CT Scan Report ---
CT angio head w con HISTORY: Mental status change cva TECHNIQUE: Multiaxial CT angiography of the head was performed 100 cc IV contrast: None. Maximum intensity projection images were also obtained. A dose lowering technique was utilized adhering to the principles of ALARA. COMPARISON: 05/23/2018 FINDINGS: There is no mass, hematoma, midline shift, or acute infarct. Visualized intracranial epidemiology intern al carotid arteries, distal vertebral arteries, and basilar artery are widely patent. There is no sig nificant stenosis, occlusion, or aneurysm seen within the bilateral ACAs, MCAs, or senior interior designer. Unchanged mi dline shift to the left. Stable postoperative changes of the right frontal lobe region which is stable postoperative changes t o the right frontal lobe. IMPRESSION: No significant stenosis, occlusion, or aneurysm within the sleetmute of [place]. Moderate midline shift t o the left unchanged from the prior exam. The above report was generated using voice recognition software. It may contain grammatical, syntax or spelling errors. Electronically signed by: Tim Mcbride M.D. 12/20/2018 12:47 PM
[2018-12-20 12:51] LABS: Hematocrit (blood only) 41.3 % (37-47); Hemoglobin 14.5 g/dL (12.0-16.0); Immature Granulocytes # (auto) 0.02 K/uL (0.00-0.02); Immature Granulocytes % (auto) 0.4 %; Lymphocytes # (auto) 1.47 K/uL (1.2-3.4); Lymphocytes % (auto) 30.9 %; Mean Corpuscular Hemoglobin 31.9 pg (25-34); Mean Corpuscular Hgb Conc 35.1 g/dL (32-36); Monocytes # (auto) 0.25 K/uL (0.11-0.59); Monocytes % (auto) 5.3 %; Neutrophils # (auto) 3.01 K/uL (1.4-6.5); Neutrophils % (auto) 63.4 %; Platelet Count 180 K/uL (130-400); RDW Coefficient of Variation 12.3 % (11.5-14.5); RDW Standard Deviation 40.7 fL (36.4-46.3); Red Blood Count 4.54 M/uL (4.2-5.4); White Blood Count 4.75 K/uL (4.8-10.8)
--- NOTE | 2018-12-20 12:51 | CT Scan Report ---
CT OF THE HEAD WITHOUT CONTRAST CLINICAL HISTORY: Stroke evaluation COMPARISON STUDY: Head CT October 24, 2018. TECHNIQUE: Helical axial images of the head were obtained without IV contrast. Automated exposure con trol was utilized for the study. A dose lowering technique was utilized adhering to the principles o f ALARA. FINDINGS: No acute intracranial hemorrhage, midline shift or mass effect is present. A right frontal resection cavity is unchanged. White matter hypodensities unchanged. Ventricular system is stable. Ba silar cisterns are patent. There are no extra-axial collections. Calcification within the right basal ganglia is unchanged. A right-sided craniotomy is noted. Vertebral heterogeneity, most evident withi n the right frontal, temporal and parietal bones is similar to prior exam. Visualized portions of the sinuses and mastoid air cells are clear. There is no calvarial fracture IMPRESSION: 1. No acute intracranial findings. Stable postoperative findings. No change in appearance of the brai n. 2. No change in calvarial heterogeneity. Electronically signed by: Omkar Ricci M.D. 12/20/2018 12:50 PM
--- NOTE | 2018-12-20 12:54 | CT Scan Report ---
CT angio neck with con HISTORY: Stroke. Mental status change. cva TECHNIQUE: Multiaxial CT angiography of the neck was performed IV contrast: 100 cc nonionic All ene urements were calculated based on NASCET criteria. Maximum intensity projection images were also obt ained. A dose lowering technique was utilized adhering to the principles of ALARA. COMPARISON STUDY: 10/24/2018 05/23/2018 FINDINGS: The aortic arch and proximal great vessels are widely patent. There is no significant sten osis, occlusion, or dissection identified within the bilateral common carotid, internal carotid, or v ertebral arteries. Mild plaque formation involving the carotid systems at the carotid bifurcations as well as carotid siphons. IMPRESSION: No significant stenosis, occlusion, or dissection identified within the carotid or vertebral arteries . Mild scattered plaque formation The above report was generated using voice recognition software. It may contain grammatical, syntax or spelling errors. Electronically signed by: Tim Mcbride M.D. 12/20/2018 12:53 PM
[2018-12-20 13:04] LABS: Partial Thromboplastin Ratio 0.9; Partial Thromboplastin Time 25.2 Seconds (21.0-31.0)
[2018-12-20 13:05] LABS: Alanine Aminotransferase 28 U/L (12-78); Albumin Level 3.6 gm/dl (3.4-5.0); Aspartate Aminotransferase 20 U/L (15-37); BUN Creatinine Ratio 16.8 (10-20); Blood Urea Nitrogen 12 mg/dl (7-18); Calcium 8.9 mg/dl (8.5-10.1); Carbon Dioxide 27 mmol/L (21-32); Chloride 104 mmol/L (98-107); Est GFR (Non-African American) 91.4; Glucose 170 mg/dl (70-99); Magnesium 1.9 mg/dl (1.8-2.4); Potassium 3.4 mmol/L (3.5-5.1); Sodium 139 mmol/L (136-145)
[2018-12-20 13:10] LABS: Albumin Globulin Ratio 0.9 (0.9-2); Alkaline Phosphatase 143 U/L (45-117); Bilirubin,Total 0.3 mg/dl (0.2-1); Globulin 3.8 gm/dl (2.5-4.0); Total Protein 7.4 gm/dl (6.4-8.2); Troponin I < 0.015 ng/ml (0-0.045)
--- NOTE | 2018-12-20 13:25 | XRay Report ---
XR chest 1V portable CLINICAL HISTORY: cva mental status change COMPARISON STUDY: 05/23/2018 FINDINGS: Mild cardiomegaly. Slight prominence of the pulmonary vasculature. Diaphragms are smooth. S light blunting left lateral costophrenic angle. IMPRESSION: Pulmonary vascular congestion. Trace pleural fluid left base. The above report was generated using voice recognition software. It may contain grammatical, syntax or spelling errors. Electronically signed by: Tim Mcbride M.D. 12/20/2018 1:24 PM
--- NOTE | 2018-12-20 14:44 | Emergency Department Note ---
Entered by Jhony Swann acting as a scribe for History of Present Illness General Chief complaint: Stroke Alert Time Seen by Provider: 12/20/18 12:33 Source: EMS History of Present Illness Provider complaint: Stroke like symptoms Onset (ago): hour(s) 1 Location: head Pain Consistency: + constant Relieved By: + none Exacerbated By: + none Associated symptoms: + headaches, + weakness and + other (Facial droop, Slurred speech, ) The patient is a 58 year old female who presents to the Emergency Room with complaints of constant stroke like symptoms that started about an hour ago, per EMS. EMS reports that the patient was at physical therapy when the therapist noticed a left sided facial droop and left sided weakness, especially in her left upper extremity. Per EMS, the patient also presents with slurred speech, which they state is worse than the patient's baseline. The patient has a history of brain tumors but had a procedure in 1996 while in [place] to remove the tumors. The patient also has a history of ND and seizures. The patient reports t hat she had a mild headache prior to coming to the ED, but upon arrival the headache has resolved. The patient also has a history of frequent falls, but notes her last fall was a couple months ago. Per EMS the patient's BSG was 207. Home Medications Home Medications Medication Instructions Recorded Confirmed Type acetaminophen [Tylenol] 650 mg PO Q4 PRN 06/06/18 10/24/18 History bisacodyl [Dulcolax (bisacodyl)] 10 mg AK UD PRN 06/06/18 10/24/18 History carbamazepine 200 mg PO BID 06/06/18 10/24/18 History cetirizine [Zyrtec] 10 mg PO DAILY 06/06/18 10/24/18 History cholecalciferol (vitamin D3) 1,000 unit PO DAILY 06/06/18 10/24/18 History [Vitamin D3] cyanocobalamin (vitamin B-12) 500 mcg PO DAILY 06/06/18 10/24/18 History [Vitamin B-12] duloxetine [Cymbalta] 60 mg PO QAM 06/06/18 10/24/18 History gabapentin [Neurontin] 300 mg PO HS 06/06/18 10/24/18 History hydroxyzine HCl 25 mg PO QID PRN 06/06/18 10/24/18 History levothyroxine [Synthroid] 50 mcg PO QAM 06/06/18 10/24/18 History linaclotide [Linzess] 72 mcg PO HS 06/06/18 10/24/18 History lysine [L-Lysine] 500 mg PO DAILY 06/06/18 10/24/18 History modafinil 200 mg PO DAILY 06/06/18 10/24/18 History multivitamin 1 tab PO DAILY 06/06/18 10/24/18 History omeprazole 40 mg PO QAM 06/06/18 10/24/18 History ranitidine HCl [Zantac] 150 mg PO BID 06/06/18 10/24/18 History rosuvastatin 20 mg PO HS 06/06/18 10/24/18 History oxycodone 5 mg PO Q4H PRN #10 tab 10/24/18 Rx prednisone 20 mg PO UD 10/24/18 10/24/18 History Allergies Allergy/AdvReac Type Severity Reaction Status Date / Time Penicillins Allergy Intermediate HIVES Verified 05/23/18 16:32 cimetidine Allergy Unknown Verified 06/06/18 23:09 erythromycin base Allergy Unknown Verified 06/06/18 23:09 phenytoin AdvReac Intermediate HIVES Verified 05/23/18 16:32 Past Med/Surg History Medical History Hypokalemia Stroke-like symptoms Brain cancer 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 Anxiety Chronic urticaria Depression GERD (gastroesophageal reflux disease) Hyperlipidemia Hypothyroidism Irritable bowel syndrome Myocardial Infarction Osteoarthritis Seizure Syncope Surgical History History of craniotomy Social History Preferred Language: Serbian Communication Ability: Effective Post Graduate Internship Required: No Beliefs That Will Affect Care: None marital status: Current Living Situation: Alone current occupational status: unemployed Feels Safe at Home: Yes Smoking Status: Never smoker Hx Alcohol Use: No Hx Substance Use: No Review of Systems See HPI for pertinent positives & negatives. and A total of 10 systems reviewed and were otherwise negative Physical Exam Vital Signs Vital Signs - 24 hr 12/20/18 12:43 12/20/18 13:15 12/20/18 14:15 Temperature 36.8 C Temperature Source Oral Sepsis Recent Fever Within 48 Hours No Sepsis New/Unexplained Change in Mental Status No Sepsis Action Taken by Nursing No Action Required Pulse Rate 98 H Pulse Rate [Apical] 82 90 Respiratory Rate 20 16 16 Blood Pressure 169/103 H Blood Pressure [Right Arm] 180/112 H 145/118 H Blood Pressure Mean 125 Blood Pressure Mean [Right Arm] 134 127 Pulse Oximetry 95 96 98 Oxygen Delivery Method Room Air Room Air VITAL SIGNS: were reviewed as above. GENERAL:Non-toxic in appearance. SKIN: Warm dry and pink. HEAD: Normocephalic and atraumatic. OROPHARYNX: Is clear and moist NECK: Supple without lymphadenopathy or meningismus. LUNGS: clear. HEART: Regular rate and rhythm. ABDOMEN: Soft and nontender. EXTREMITIES: Warm and well perfused. NEUROLOGICALLY: Awake alert and oriented without focal deficit or weakness to the extremities. Cranial nerves 2-12 are intact except for 7. Left sided facial droop noted. Mild slurring of speech. There is no pronator drift. Cerebellar testing is within normal limits. There is no nystagmus. Vision is grossly normal. MUSCULOSKELETAL: Good muscle tone. No evidence of trauma. Course 1230: Past medical records reviewed. The patient was evaluated in room A01, and a complete history and physical examination were performed. 1239: I spoke to Dr. Prabhakar Tompkins about the patient's case. She is going to evaluate the patient via Telestroke. 1338: I reevaluated the patient and she is resting in bed with stable vitals. I updated the patient on results and the treatment plan. 1404: I spoke to Alicia Yun [facility] under Dr. Maurice Atkins about the patient's case. They are going to accept the patient for further evaluation. 1408: I spoke to the patient's daughter about the patient's case and updated her on the results. I also updated her on the treatment plan and she is agreeable w ith the plan. Consultations Consultation #1: I spoke to Dr. Prabhakar Tompkins about the patient's case. She is going to evaluate the patient via Telestroke. Time: 12:39 Consultation #2: I spoke to Alicia Yun [facility] under Dr. Maurice Atkins about the patient's case. They are going to accept the patient for further evaluation. Time: 14:04 Administered Medications Sodium Chloride (Nss 1000ml) 1,000 mls @ 50 mls/hr IV .Q20H JOVANY Stop: 01/19/19 12:29 Last Admin: 12/20/18 13:32 Dose: 50 mls/hr Documented by: [id number] Ioversol (Optiray 320 125ml) 119 ml IV ONCE PRN PRN Reason: Interaction Checking Stop: 12/24/18 12:30 Last Admin: 12/20/18 12:32 Dose: 119 ml Documented by: [id number] Medical Decision Making Differential Diagnosis Differential Diagnosis includes but is not limited to ischemic Stroke, hemorrhagic stroke, bells palsy, mass, neoplasm, migraine headache, seizure, subarachnoid hemorrhage, TIA, and transient global amnesia. Medical Records Attestation: I reviewed the patient's medical records. Home Medications Current Medication List: was personally reviewed by me Laboratory Data Attestation: I reviewed the patient's lab results. Result diagrams: 12/20/18 12:12 12/20/18 12:12 Lab Results 12/20/18 12/20/18 12/20/18 Range/Units 12:12 12:12 12:12 WBC 4.75 L (4.8-10.8) K/uL RBC 4.54 (4.2-5.4) M/uL Hgb 14.5 (12.0-16.0) g/dL Hct 41.3 (37-47) % MCV 91.0 (80-100) fL MCH 31.9 (25-34) pg MCHC 35.1 (32-36) g/dL RDW Std Deviation 40.7 (36.4-46.3) fL RDW Coeff of Claudio 12.3 (11.5-14.5) % Plt Count 180 (130-400) K/uL MPV 10.0 (7.4-10.4) fL Immature Gran % (Auto) 0.4 % Neut % (Auto) 63.4 % Lymph % (Auto) 30.9 % Sawyer % (Auto) 5.3 % Eos % (Auto) 0.0 % Baso % (Auto) 0.0 % Immature Gran # (Auto) 0.02 (0.00-0.02) K/uL Neut # (Auto) 3.01 (1.4-6.5) K/uL Lymph # (Auto) 1.47 (1.2-3.4) K/uL Sawyer # (Auto) 0.25 (0.11-0.59) K/uL Eos # (Auto) 0.00 (0-0.5) K/uL Baso # (Auto) 0.00 (0-0.2) K/uL PT 10.0 (9.0-12.0) Seconds INR 1.0 (0.9-1.1) APTT 25.2 (21.0-31.0) Seconds PTT Ratio 0.9 Sodium 139 (136-145) mmol/L Potassium 3.4 L (3.5-5.1) mmol/L Chloride 104 (98-107) mmol/L Carbon Dioxide 27 (21-32) mmol/L Anion Gap 8.0 (3-11) BUN 12 (7-18) mg/dl Creatinine 0.73 (0.6-1.2) mg/dl Est Cr Clr Drug Dosing Not Reportable Est GFR ( Amer) 106.0 Est GFR (Non-Af Amer) 91.4 BUN/Creatinine Ratio 16.8 (10-20) Glucose 170 H (70-99) mg/dl Calcium 8.9 (8.5-10.1) mg/dl Magnesium 1.9 (1.8-2.4) mg/dl Total Bilirubin 0.3 (0.2-1) mg/dl AST 20 (15-37) U/L ALT 28 (12-78) U/L Alkaline Phosphatase 143 H (45-117) U/L Troponin I < 0.015 (0-0.045) ng/ml Total Protein 7.4 (6.4-8.2) gm/dl Albumin 3.6 (3.4-5.0) gm/dl Globulin 3.8 (2.5-4.0) gm/dl Albumin/Globulin Ratio 0.9 (0.9-2) Carbamazepine (4-12) mcg/ml Blood Type Antibody Screen 12/20/18 12/20/18 Range/Units 12:12 12:45 WBC (4.8-10.8) K/uL RBC (4.2-5.4) M/uL Hgb (12.0-16.0) g/dL Hct (37-47) % MCV (80-100) fL MCH (25-34) pg MCHC (32-36) g/dL RDW Std Deviation (36.4-46.3) fL RDW Coeff of Claudio (11.5-14.5) % Plt Count (130-400) K/uL MPV (7.4-10.4) fL Immature Gran % (Auto) % Neut % (Auto) % Lymph % (Auto) % Sawyer % (Auto) % Eos % (Auto) % Baso % (Auto) % Immature Gran # (Auto) (0.00-0.02) K/uL Neut # (Auto) (1.4-6.5) K/uL Lymph # (Auto) (1.2-3.4) K/uL Sawyer # (Auto) (0.11-0.59) K/uL Eos # (Auto) (0-0.5) K/uL Baso # (Auto) (0-0.2) K/uL PT (9.0-12.0) Seconds INR (0.9-1.1) APTT (21.0-31.0) Seconds PTT Ratio Sodium (136-145) mmol/L Potassium (3.5-5.1) mmol/L Chloride (98-107) mmol/L Carbon Dioxide (21-32) mmol/L Anion Gap (3-11) BUN (7-18) mg/dl Creatinine (0.6-1.2) mg/dl Est Cr Clr Drug Dosing Est GFR ( Amer) Est GFR (Non-Af Amer) BUN/Creatinine Ratio (10-20) Glucose (70-99) mg/dl Calcium (8.5-10.1) mg/dl Magnesium (1.8-2.4) mg/dl Total Bilirubin (0.2-1) mg/dl AST (15-37) U/L ALT (12-78) U/L Alkaline Phosphatase (45-117) U/L Troponin I (0-0.045) ng/ml Total Protein (6.4-8.2) gm/dl Albumin (3.4-5.0) gm/dl Globulin (2.5-4.0) gm/dl Albumin/Globulin Ratio (0.9-2) Carbamazepine 10.6 (4-12) mcg/ml Blood Type O Positive Antibody Screen NEGATIVE Imaging Data Radiologist's Impression: Radiology results as stated below per my review and the radiologist's interpretation: XR chest 1V portable CLINICAL HISTORY: cva mental status change COMPARISON STUDY: 05/23/2018 FINDINGS: Mild cardiomegaly. Slight prominence of the pulmonary vasculature. Diaphragms are smooth. Slight blunting left lateral costophrenic angle. IMPRESSION: Pulmonary vascular congestion. Trace pleural fluid left base. The above report was generated using voice recognition software. It may contain grammatical, syntax or spelling errors. Electronically signed by: Tim Mcbride M.D. 12/20/2018 1:[address] OF THE HEAD WITHOUT CONTRAST CLINICAL HISTORY: Stroke evaluation COMPARISON STUDY: Head CT October 24, 2018. TECHNIQUE: Helical axial images of the head were obtained without IV contrast. Automated exposure control was utilized for the study. A dose lowering technique was utilized adhering to the principles of ALARA. FINDINGS: No acute intracranial hemorrhage, midline shift or mass effect is present. A right frontal resection cavity is unchanged. White matter hypoden sities unchanged. Ventricular system is stable. Basilar cisterns are patent. There are no extra-axial collections. Calcification within the right basal ganglia is unchanged. A right-sided craniotomy is noted. Vertebral heterogeneity, most evident within the right frontal, temporal and parietal bones is similar to prior exam. Visualized portions of the sinuses and mastoid air cells are clear. There is no calvarial fracture IMPRESSION: 1. No acute intracranial findings. Stable postoperative findings. No change in appearance of the brain. 2. No change in calvarial heterogeneity. Electronically signed by: Omkar Ricci M.D. 12/20/2018 12:[address] angio head w con HISTORY: Mental status change cva TECHNIQUE: Multiaxial CT angiography of the head was performed 100 cc IV contrast: None. Maximum intensity projection images were also obtained. A dose lowering technique was utilized adhering to the principles of ALARA. COMPARISON: 05/23/2018 FINDINGS: There is no mass, hematoma, midline shift, or acute infarct. Visualized intracranial internal carotid arteries, distal vertebral arteries, and basilar artery are widely patent. There is no significant stenosis, occlusion, or aneurysm seen within the bilateral ACAs, MCAs, or environmental consultant. Unchanged midline shift to the left. Stable postoperative changes of the right frontal lobe region which is stable postoperative changes to the right frontal lobe. IMPRESSION: No significant stenosis, occlusion, or aneurysm within the [place]. Moderate midline shift to the left unchanged from the prior exam. The above report was generated using voice recognition software. It may contain grammatical, syntax or spelling errors. Electronically signed by: Tim Mcbride M.D. 12/20/2018 12:[address] angio neck with con HISTORY: Stroke. Mental status change. cva TECHNIQUE: Multiaxial CT angiography of the neck was performed IV contrast: 100 cc nonionic All measurements were calculated based on NASCET criteria. Maximum intensity projection images were also obtained. A dose lowering technique was utilized adhering to the principles of ALARA. COMPARISON STUDY: 10/24/2018 05/23/2018 FINDINGS: The aortic arch and proximal great vessels are widely patent. There is no significant stenosis, occlusion, or dissection identified within the bilateral common carotid, internal carotid, or vertebral arteries. Mild plaque formation involving the carotid systems at the carotid bifurcations as well as carotid siphons. IMPRESSION: No significant stenosis, occlusion, or dissection identified within the carotid or vertebral arteries. Mild scattered plaque formation The above report was generated using voice recognition software. It may contain grammatical, syntax or spelling errors. Electronically signed by: Tim Mcbride M.D. 12/20/2018 12:53 PM ECG Data Attestation: I personally reviewed and interpreted this ECG as follows: Indication: weakness Rate (beats per minute): 82 Rhythm: normal sinus Findings: no PAC, no PVC, no ST elevation and no ectopy Blood Pressure Blood Pressure Findings: Elevated blood pressure Blood Pressure Disposition: Referred to patients primary care provider MDM Narrative This is a 58-year-old female who presents to the ED with a chief complaint of strokelike symptoms. Her last known well was 11:30 AM while she was at physical therapy. The physical therapist noticed that she had developed a left facial droop and weakness in her left arm and the patient was brought here for evaluation. Prehospital blood sugar was 207. The patient has a history of multiple falls. She also has history of craniotomy with brain tumor resection in 1996. The patient does complain of weakness in her left side. Her physical exam reveals some slurring of her speech that the patient reports is new. There is a left-sided facial droop. On my exam, there is no weakness in the arms or legs. A CT scan of the brain did not show acute process. CT scan angios the h ead and neck did not show any acute abnormalities. CBC and chemistry panel were unremarkable. EKG did not show any arrhythmia. Troponin is negative. Patient was evaluated via [facility] tele-stroke as the patient was a stroke alert prior to arrival. No specific treatment was recommended with regards to thrombolytics as the patient symptoms seem to have resolved mostly and she was felt to have a TIA. She will be seen by the hospitalist for further inpatient evaluation and care. Impression & Plan CVA (cerebral vascular accident) Discharge Plan Visit Data Chief Complaint: Stroke Alert ED Provider: Jhonny Farrell Discharge Problem: CVA (cerebral vascular accident) Patient Disposition: Being Evaluated by Hospitalist Forms Stand Alone Forms: [facility] Prescriptions Prescriptions: No Action acetaminophen [Tylenol] 325 mg Capsule 650 mg PO Q4 PRN (Reason: Fever Or Pain) RF: 0 multivitamin Tablet 1 tab PO DAILY RF: 0 carbamazepine 100 mg Tablet Extended Release 12 Hr 200 mg PO BID RF: 0 omeprazole 40 mg capsule,delayed release(DR/EC) 40 mg PO QAM RF: 0 modafinil 200 mg Tablet 200 mg PO DAILY RF: 0 cyanocobalamin (vitamin B-12) [Vitamin B-12] 500 mcg Tablet 500 mcg PO DAILY RF: 0 levothyroxine [Synthroid] 50 mcg tablet 50 mcg PO QAM RF: 0 bisacodyl [Dulcolax (bisacodyl)] 10 mg Suppository 10 mg AK UD PRN (Reason: Constipation) RF: 0 ranitidine HCl [Zantac] 150 mg Tablet 150 mg PO BID RF: 0 gabapentin [Neurontin] 300 mg capsule 300 mg PO HS RF: 0 hydroxyzine HCl 25 mg tablet 25 mg PO QID PRN (Reason: Itching) RF: 0 lysine [L-Lysine] 500 mg Tablet 500 mg PO DAILY RF: 0 cholecalciferol (vitamin D3) [Vitamin D3] 1,000 unit Capsule 1,000 unit PO DAILY RF: 0 rosuvastatin 20 mg Tablet 20 mg PO HS RF: 0 duloxetine [Cymbalta] 60 mg capsule,delayed release(DR/EC) 60 mg PO QAM RF: 0 Zyrtec 10 mg Capsule 10 mg PO DAILY RF: 0 Linzess 72 mcg capsule 72 mcg PO HS RF: 0 prednisone 20 mg Tablet 20 mg PO UD RF: 0 oxycodone 5 mg tablet 5 mg PO Q4H PRN (Reason: pain) Qty: 10 RF: 0 Referrals Referrals: Nina Haile MD [Primary Care Provider] - Discharge Problem: CVA (cerebral vascular accident) Qualifiers: CVA mechanism: unspecified Qualified Code(s): I63.9 - Cerebral infarction, unspecified The scribe's documentation has been prepared under my direction and personally reviewed by me in its entirety. I confirm that the note above accurately reflects all work, treatment, procedures, and medical decision making performed by me.
--- NOTE | 2018-12-20 15:45 | History & Physical Report ---
Date of Service December 20, 2018 Assessment & Plan (1) Stroke-like symptoms: Pt presented as stroke alert in the ED. Initial work-up negative. Not given TPA. Neuro deficits appear to be resolving although still with residual facial droop on current exam. - Consult neurology - discussed with neuro [facility] who agree with MRI brain with and without contrast. Will need to determine if pt is a candidate for dual anti-platelet therapy due to history of recurrent falls and hygroma/hematoma - Check MRI brain as above - Neuro checks per protocol - Consult PT/OT - Consult speech - due to residual facial droop pt to remain NPO until evaluated by speech. - Monitor on telemetry (2) Hypokalemia: - Replete and recheck in AM (3) Recurrent urticaria: Pt has seen dermatology for this as outpatient - given triamcinolone cream. Has responded well to prednisone in the past but recurs off steroids. Scheduled for outpatient allergy evaluation in February - Continue Zyrtec/Benadryl - Restart prednisone at 40 mg daily - has been on multiple different tapers in the past (4) Hypothyroidism: - Continue outpatient levothyroxine - Check TSH in AM (5) GERD (gastroesophageal reflux disease): - Continue outpatient ranitidine therapy - may need to consider alternative in future since pt reports increasing symptoms (6) Hyperlipidemia: - Check lipid panel in AM - Continue statin therapy (7) History of astrocytoma: History of craniotomy. Per pt's daughter, pt's tumor presented as a grand mal seizure. No residual disease that daughter is aware of. Has seen neurosurgery previously for these symptoms (during last admission in May) and imaging findings were stable from prior. (8) Essential hypertension: Not currently on any medications for this - continue to monitor this admission (9) History of seizure disorder: Initially thought to be related to astrocytoma but pt has been maintained on AEDs for years - daughter unsure if truly related to a seizure disorder but reports no known seizures in years although it has been questioned if these recurrent episodes of neurologic deficits may be atypical seizure activity. - Continue carbamazepine (10) Depression: - Continue Cymbalta as was taking prior to admission (11) Fibromyalgia: - Continue gabapentin and Cymbalta Pt seen then reviewed with attending physician, Dr. Richards. Plan of care discussed and as outlined above. Daughter Bettie was updated by phone ([phone]) - all questions answered. Patient is to be full code at this time. The plan is for patient to return to [facility] at discharge. Per daughter, pt is no longer considered safe to live alone. Joana Street PA-C History of Present Illness Chief Complaint: Left sided weakness, slurred speech, facial droop Primary Care Provider: Nina Haile MD This is a 58 y/o female who is a resident of [facility] with a PMH of astrocytoma s/p craniotomy/XRT/chemo, subdural hygroma, chronic left hemiparesis, hypertension, seizure disorder, GERD, dyslipidemia, and hypothyroidism who developed acute worsening of chronic left hemiparesis with associated facial droop and slurred speech. Pt reports she was participating with PT this morning around 11:30 am and suddenly couldn't move her left side due to weakness and difficulty thinking clearly. She states that her speech was slurred but denies any word finding or expressive aphasia. EMS was called and pt came into ED as a stroke alert. Since arrival in the ED, pt's deficits are improving. Currently, she feels as if her hemiparesis is back to baseline and her speech is no longer slurred. She does have residual facial droop but is unsure if this is improving from earlier. She had a frontal headache when she arrived in the ED but this has also improved and is only mild at present. She denies chest pain, palpitations, dyspnea, cough, dysphagia, nausea, dizziness, syncope, seizure-like activity, urinary incontinence, numbness or tingling. She does have a chronic tremor in her left hand that she feels is unchanged from baseline. Pt was admitted to this facility in May with similar symptoms - MRI at the time showed subdural hygroma with mass effect so pt was transferred to [facility] for neurosurgery evaluation. However, this was determined to be chronic. Neurology saw pt during that admission as well for recurrent LOC and dizziness - thought secondary to the Sinemet pt was taking which was discontinued with subsequent improvement. Pt does have a history of frequent falls. She was seen in this ED in October s/p fall with resultant L1 compression fracture. Allergies Allergy/AdvReac Type Severity Reaction Status Date / Time Penicillins Allergy Intermediate HIVES Verified 12/20/18 15:07 cimetidine Allergy Unknown Verified 12/20/18 15:07 erythromycin base Allergy Unknown Verified 12/20/18 15:07 phenytoin AdvReac Intermediate HIVES Verified 12/20/18 15:07 Home Medications Home Medications Medication Instructions Recorded Confirmed Type acetaminophen [Tylenol] 650 mg PO Q4 PRN 06/06/18 12/20/18 History bisacodyl [Dulcolax (bisacodyl)] 10 mg CA UD PRN 06/06/18 12/20/18 History carbamazepine 200 mg PO BID 06/06/18 12/20/18 History cetirizine [Zyrtec] 10 mg PO QAM 06/06/18 12/20/18 History cholecalciferol (vitamin D3) 1,000 unit PO QAM 06/06/18 12/20/18 History [Vitamin D3] cyanocobalamin (vitamin B-12) 500 mcg PO QAM 06/06/18 12/20/18 History [Vitamin B-12] gabapentin [Neurontin] 300 mg PO HS 06/06/18 12/20/18 History levothyroxine [Synthroid] 50 mcg PO QAM 06/06/18 12/20/18 History linaclotide [Linzess] 72 mcg PO HS 06/06/18 12/20/18 History lysine [L-Lysine] 500 mg PO QAM 06/06/18 12/20/18 History multivitamin 1 tab PO QAM 06/06/18 12/20/18 History ranitidine HCl [Zantac] 150 mg PO BID 06/06/18 12/20/18 History rosuvastatin 20 mg PO HS 06/06/18 12/20/18 History acetaminophen 500 mg PO TID 12/20/18 12/20/18 History cetyl,stear.alcoh-prop gly-sls 1 applic TOPICAL QAM 12/20/18 12/20/18 History [Cetaphil] diphenhydramine HCl [Benadryl 25 mg PO QID PRN 12/20/18 12/20/18 History Allergy] duloxetine 30 mg PO QAM 12/20/18 12/20/18 History magnesium hydroxide [Milk of 30 ml PO DAILY PRN 12/20/18 12/20/18 History Magnesia] meclizine 25 mg PO TID PRN 12/20/18 12/20/18 History modafinil 100 mg PO QAM 12/20/18 12/20/18 History triamcinolone acetonide 1 applic TOPICAL BID PRN 12/20/18 12/20/18 History Past Med/Surg History Medical History Stroke-like symptoms Benign paroxysmal positional vertigo, bilateral Essential hypertension Fibromyalgia History of astrocytoma s/p craniotomy/XRT/chemo History of peptic ulcer disease History of seizure disorder Anxiety Chronic urticaria Depression GERD (gastroesophageal reflux disease) Hyperlipidemia Hypothyroidism Irritable bowel syndrome Osteoarthritis Surgical History History of D&C History of carpal tunnel surgery of right wrist History of tubal ligation History of craniotomy Social History Preferred Language: Latvian Communication Ability: Effective Tool 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: No Beliefs That Will Affect Care: None marital status: Current Living Situation: Personal Care Facility Current Living Situation Comment: [facility] current occupational status: unemployed Other Information That Helps Us Care for You: No Feels Safe at Home: Yes Safety Concerns: Feels Safe At This Time Smoking Status: Former smoker Hx Alcohol Use: No Hx Substance Use: No Review of Systems Review of Systems: All systems reviewed & are unremarkable except as noted in HPI & below Constitutional: + fatigue (chronic issue); no fever, no chills and no sweats Eyes: no diplopia, not seeing flashes and no worsening vision Ear, Nose, Mouth, Throat: no dizziness, no nasal congestion, no nasal discharge, no sore throat and no dysphagia Respiratory: no cough, no dyspnea, no hemoptysis and no wheezing Cardiovascular: + edema (occasional pedal edema); no chest pain, no palpitations and no syncope Gastrointestinal: + heartburn (mostly at night with lying down); no abdominal pain, no nausea, no vomiting, no change in bowel habits and no blood in stools Genitourinary: no dysuria, no urinary frequency and no hematuria Musculoskeletal: no back pain and no neck pain Integumentary: + urticaria (ongoing issue) Neurologic: as per Subjective / HPI, + falls (frequent recurrent issue), + tremor(s) and + headache(s); no seizure-like activity and no dizziness Psychiatric: + depression (history of) Physical Exam Constitutional: WD/WN, vitals as above no altered mental status Eyes: PERRL, conjunctivae normal, anicteric sclerae EOM intact bilaterally (but pt had difficulty cooperating with this maneuver ) ENMT: external ear and nose normal, oropharynx normal Neck: trachea midline Respiratory: normal respiratory effort, lungs clear to auscultation does not use accessory muscles Auscultation: no rales, no rhonchi and no wheezes Cardiovascular: Rate/Rhythm: regular rate and regular rhythm Heart Sounds: no gallop and no murmur Vessels: no carotid bruit Extremities: no calf tenderness and no pedal edema Gastrointestinal (Abdomen): Inspection/Auscultation: normal bowel sounds; abdomen not distended Percussion/Palpation: abdomen soft; abdomen nontender Musculoskeletal: Head/Neck/Chest: neck supple Extremities: + abnormal strength (right UE/LE strength 5/5, left UE/LE strength 4/5 (weakness worse in UE)); no cyanosis Skin: multiple urticarial lesions on bilateral UE and back Neurologic: Speech / Cognition: normal speech mild residual left facial droop - most noticeable when pt smiles. Tongue midline. Able to raise bilateral eyebrows, close eyes and squeeze shut, shrug shoulders. Sensation to light touch grossly intact on face and bilateral UE/LE. Swallowing observed without apparent difficulty. Psychiatric: A+Ox3, euthymic affect Results & Data Vital Signs (Past 12 Hours) Vital Signs Temp Pulse Pulse Resp BP BP Pulse Ox 12/20/18 15:09 85 18 145/87 H 97 12/20/18 14:15 90 16 145/118 H 98 12/20/18 13:15 82 16 180/112 H 96 12/20/18 12:43 36.8 C 98 H 20 169/103 H 95 Laboratory Results Laboratory Results - last 24 hr 12/20/18 12/20/18 12/20/18 12:12 12:12 12:12 WBC 4.75 L RBC 4.54 Hgb 14.5 Hct 41.3 MCV 91.0 MCH 31.9 MCHC 35.1 RDW Std Deviation 40.7 RDW Coeff of Claudio 12.3 Plt Count 180 MPV 10.0 Immature Gran % (Auto) 0.4 Neut % (Auto) 63.4 Lymph % (Auto) 30.9 [place] % (Auto) 5.3 Eos % (Auto) 0.0 Baso % (Auto) 0.0 Immature Gran # (Auto) 0.02 Neut # (Auto) 3.01 Lymph # (Auto) 1.47 [place] # (Auto) 0.25 Eos # (Auto) 0.00 Baso # (Auto) 0.00 PT 10.0 INR 1.0 APTT 25.2 PTT Ratio 0.9 Sodium 139 Potassium 3.4 L Chloride 104 Carbon Dioxide 27 Anion Gap 8.0 BUN 12 Creatinine 0.73 Est Cr Clr Drug Dosing Not Reportable Est GFR ( Amer) 106.0 Est GFR (Non-Af Amer) 91.4 BUN/Creatinine Ratio 16.8 Glucose 170 H Calcium 8.9 Magnesium 1.9 Total Bilirubin 0.3 AST 20 ALT 28 Alkaline Phosphatase 143 H Troponin I < 0.015 Total Protein 7.4 Albumin 3.6 Globulin 3.8 Albumin/Globulin Ratio 0.9 Carbamazepine Blood Type Antibody Screen 12/20/18 12/20/18 12:12 12:45 WBC RBC Hgb Hct MCV MCH MCHC RDW Std Deviation RDW Coeff of Claudio Plt Count MPV Immature Gran % (Auto) Neut % (Auto) Lymph % (Auto) [place] % (Auto) Eos % (Auto) Baso % (Auto) Immature Gran # (Auto) Neut # (Auto) Lymph # (Auto) [place] # (Auto) Eos # (Auto) Baso # (Auto) PT INR APTT PTT Ratio Sodium Potassium Chloride Carbon Dioxide Anion Gap BUN Creatinine Est Cr Clr Drug Dosing Est GFR ( Amer) Est GFR (Non-Af Amer) BUN/Creatinine Ratio Glucose Calcium Magnesium Total Bilirubin AST ALT Alkaline Phosphatase Troponin I Total Protein Albumin Globulin Albumin/Globulin Ratio Carbamazepine 10.6 Blood Type O Positive Antibody Screen NEGATIVE Diagnostic Findings Head CT 12/20/18 - IMPRESSION: 1. No acute intracranial findings. Stable postoperative findings. No change in appearance of the brain. 2. No change in calvarial heterogeneity. Chest x-ray 12/20/18 - IMPRESSION: Pulmonary vascular congestion. Trace pleural fluid left base. Head CTA 12/20/18 - IMPRESSION: No significant stenosis, occlusion, or aneurysm within the [place]. Moderate midline shift to the left unchanged from the prior exam. Neck CTA 12/20/18 - IMPRESSION: No significant stenosis, occlusion, or dissection identified within the carotid or vertebral arteries. Mild scattered plaque formation Medications Administered Sodium Chloride (Nss 1000ml) 1,000 mls @ 50 mls/hr IV .Q20H JOVANY Stop: 01/19/19 12:29 Last Admin: 12/20/18 13:32 Dose: 50 mls/hr Documented by: [id number] Ioversol (Optiray 320 125ml) 119 ml IV ONCE PRN PRN Reason: Interaction Checking Stop: 12/24/18 12:30 Last Admin: 12/20/18 12:32 Dose: 119 ml Documented by: [id number] Code Status & VTE Plan VTE Prophylaxis Plan VTE Prophylaxis will be ordered: Yes Supervising Physician Co-Signing Physician Notes I have seen and examined the patient and have discussed the case with the provider above. I agree with the assessment and plan as stated. By the time I saw her on the floor, symptoms had completely resolved and she was feeling well and mentating at baseline. Physical exam revealed strength at baseline with some difficulty on the left upper arm and with handgrip but essentially 5/5 throughout. She did have some left sided facial droop that was very slight but present. No sensation deficits and no paresthesias of face. Speech was intact, memory was intact. Brain MRI revealed stable post surgical changes after right frontal craniectomy. No acute intracranial pathology was seen. Head and neck CTA were negative for significant stenosis, occlusion, aneurysm within the [place]. Or dissection identified in the carotid or vertebral arteries. A moderate midline shift to the left was unchanged from the prior exam in May. She passed her dysphagia swallow test and did well with her pills. Formal speech test in am. Plan as above. Will await neurology recs. DO Maurice (1) Depression Active/Remission status: remission status unspecified Depression Type: major depressive disorder Major depression recurrence: unspecified whether recurrent Qualified Code(s): F32.9 - Major depressive disorder, single episode, unspecified (2) Hyperlipidemia Hyperlipidemia type: unspecified Qualified Code(s): E78.5 - Hyperlipidemia, unspecified (3) Hypothyroidism Hypothyroidism type: acquired Qualified Code(s): E03.9 - Hypothyroidism, unspecified (4) GERD (gastroesophageal reflux disease) Esophagitis presence: esophagitis presence not specified Qualified Code(s): K21.9 - Gastro-esophageal reflux disease without esophagitis
[2018-12-20] MEDS ORDERED: TRIAMCINOLONE ACET 0.1% CR 15 GM TUBE TOP PRN (17:25)
[2018-12-20] MEDS ORDERED: POTASSIUM CHLORIDE / WTR 10 MEQ/100 ML PLCT IV SCH (17:45)
[2018-12-20] MEDS ORDERED: GADOBUTROL 65ML VIAL IV PRN (20:28)
--- NOTE | 2018-12-20 20:59 | Magnetic Resonance Report ---
MR brain wo/w con CLINICAL HISTORY: 58 years-old Female presenting with Stroke-like sxs, hx astrocytoma s/p craniotomy, left leg weakness, unable to ambulate. TECHNIQUE: Multisequence, multiplanar MR imaging of the brain was performed before and after the admi nistration of intravenous contrast. IV contrast: 9.7 mL of Gadavist. COMPARISON: 05/23/[address] head from earlier today. FINDINGS: Localizer images: Unremarkable. Image quality is degraded by motion artifact on several sequences, some severely degraded. Bone marrow signal intensity within the calvarium grossly within normal limits apart from postsurgica l change in the right frontal region. Right frontal craniotomy with extensive resection in the right frontal lobe. Ventricles and sulci nor mal apart from expected dilatation of the right frontal horn. Mild leftward deviation of the septum p ellucidum as on prior exam. No restricted diffusion or hemorrhage. Gliosis in the brain parenchyma bradford rrounding the cystic encephalomalacia in the operative bed. This is also evident in the left frontal lobe periventricular white matter and parietal lobes, right greater than left. No abnormal parenchyma l enhancement. T2 skull base flow voids preserved. IMPRESSION: 1. Stable postsurgical changes status post right frontal craniotomy and resection. No acute intracra nial pathology. No abnormal enhancement to suggest residual or recurrent disease. Electronically signed by: Malik Delgado M.D. 12/20/2018 8:58 PM
[2018-12-20] MEDS: LINACLOTIDE 72 MCG CAPSULE PO SCH (21:23)
[2018-12-20] MEDS: ACETAMINOPHEN 500 MG TAB PO SCH (21:23)
[2018-12-20] MEDS: predniSONE 20 MG TAB PO SCH (21:24)
[2018-12-20] MEDS: CARBAMAZEPINE 100 MG TABCR PO SCH (21:24)
[2018-12-20] MEDS: ROSUVASTATIN CALCIUM 20 MG TAB PO SCH (21:24)
[2018-12-20] MEDS: GABAPENTIN 300 MG CAP PO SCH (21:25)
[2018-12-21] MEDS: LEVOTHYROXINE SODIUM 50 MCG TABLET PO SCH (05:54)
[2018-12-21 06:09] LABS: Estimated Average Glucose 117 mg/dl; Hemoglobin A1C 5.7 % (4.5-5.6)
[2018-12-21] MEDS ORDERED: PERFLUTREN LIPID MICROSPHERE (DEFINITY) IV ONE (07:37)
[2018-12-21] MEDS ORDERED: [UNRECOGNIZED DRUG - MIXTURE] TOP SCH (09:00)
[2018-12-21] MEDS: ACETAMINOPHEN 500 MG TAB PO SCH ×3 (09:21→20:33)
[2018-12-21] MEDS: predniSONE 20 MG TAB PO SCH (09:21)
[2018-12-21] MEDS: CARBAMAZEPINE 100 MG TABCR PO SCH ×2 (09:22→20:30)
[2018-12-21] MEDS: CETIRIZINE HCL 10 MG TABLET PO SCH (09:23)
[2018-12-21] MEDS: DULOXETINE HCL 30 MG CAP PO SCH (09:23)
[2018-12-21] MEDS: modafiniL 100 MG TAB PO SCH (09:23)
--- NOTE | 2018-12-21 14:37 | Neurology Consultation ---
Date of Consultation December 21, 2018 Assessment & Plan (1) Brain TIA: 1. TTE- 60-65% no ASD 2. MRI -no acute findings 3. CTA head and neck - no acute findings 4. seizure one only after astrocytoma resection- Tegretol level 10.6- continue tegretol 200 mg BID 5. optimize HTN, HLD, DM LDL <70 6. would start aspirin 81 mg if no contra indication would ? start of Plavix only because of the previous report of hydroma 7. PT/OT speech- patient reports she is back to baseline 8. seizure precautions/fall precautions. ok to discharge back to [facility] once medically stable Supervising Physician Co-Signing Physician Notes Patient was seen and examined. Agree campbell Petty PA-C as noted below. A 58 year old woman with history of astrocytoma s/p resection with symptomatic seizure on Tegretol and residual left sided weakness admitted with reported transient left facial droop, slurred speech, and left sided weakness. Symptoms consistent with possible lacunar syndrome. MRI brain reviewed and large right frontal lobe resection with no diffusion restriction. Patient reporting back to baseline. On examine has mild left upper and lower extremity weakness compare to right. Speech is non fluent but clear. Face is symmetric with smile. She is following commands. Recommend to start ASA 81 mg daily for possible TIA. Continue home Crestor. Recommend starting blood pressure medication as blood pressures appears to be elevated with DBP>100 mm Hg. Goal blood pressure SBP < 140 mm Hg, DBP<90 mm Hg. I would also recommend checking a UA. Continue home Tegretol. - Start ASA 81 mg daily - Blood pressure management. Will defer to primary for choice of agent. - Recommend checking UA - Continue home Tegretol Please call me with any further questions. History of Present Illness Reason for Consultation: Left facial droop, slurred speech Requesting Physician: Vira Richards DO Attending Physician: Vira Richards DO History of Present Illness Janay is a 58 year old female who is a resident of [facility] with a PMH of astrocytoma s/p craniotomy/XRT/chemo, subdural hygroma, chronic left hemiparesis, HTN, seizure disorder, GERD, dyslipidemia, and hypothyroidism who developed acute worsening of chronic left hemiparesis with associated facial droop and slurred speech. She was participating with PT around 11:30 am and suddenly couldn't move her left side due to weakness and difficulty thinking clearly. She states that her speech was slurred but denies any word finding or expressive aphasia. Since arrival in the ED, pt's deficits are improving and after arriving in the ED her hemiparesis is back to baseline and her speech is no longer slurred. She does have residual facial droop but is unsure if this is improving from earlier. She had a frontal headache when she arrived in the ED but this has also improved and is only mild at present. She does have a chronic tremor in her left hand that she feels is unchanged from baseline. She was admitted to [facility] in May with similar symptoms - MRI at the time showed subdural hygroma with mass effect so pt was transferred to [facility] for neurosurgery evaluation. However, this was determined to be chronic. Neurology saw pt during that admission as well for recurrent LOC and dizziness thought secondary to the Sinemet. She has many falls and was seen at [facility] in October s/p fall with resultant L1 compression fracture. She has episodes of veritgo but she does not remember being dizzy. She had eaten breakfast. Blood pressure was elevated.She was not on aspirin 81mg prior to this event. She sees a neurologist in [place] for her seizure follow up. denies CP, SOB, abdominal pain, increased one sided weakness, numbness tingling, N, V, swallowing issues, bowel or bladder issues. Allergies Allergy/AdvReac Type Severity Reaction Status Date / Time Penicillins Allergy Intermediate HIVES Verified 12/20/18 15:07 cimetidine Allergy Unknown Verified 12/20/18 15:07 erythromycin base Allergy Unknown Verified 12/20/18 15:07 phenytoin AdvReac Intermediate HIVES Verified 12/20/18 15:07 Home Medications Home Medications Medication Instructions Recorded Confirmed Type acetaminophen [Tylenol] 650 mg PO Q4 PRN 06/06/18 12/20/18 History bisacodyl [Dulcolax (bisacodyl)] 10 mg [place] UD PRN 06/06/18 12/20/18 History carbamazepine 200 mg PO BID 06/06/18 12/20/18 History cetirizine [Zyrtec] 10 mg PO QAM 06/06/18 12/20/18 History cholecalciferol (vitamin D3) 1,000 unit PO QAM 06/06/18 12/20/18 History [Vitamin D3] cyanocobalamin (vitamin B-12) 500 mcg PO QAM 06/06/18 12/20/18 History [Vitamin B-12] gabapentin [Neurontin] 300 mg PO HS 06/06/18 12/20/18 History levothyroxine [Synthroid] 50 mcg PO QAM 06/06/18 12/20/18 History linaclotide [Linzess] 72 mcg PO HS 06/06/18 12/20/18 History lysine [L-Lysine] 500 mg PO QAM 06/06/18 12/20/18 History multivitamin 1 tab PO QAM 06/06/18 12/20/18 History ranitidine HCl [Zantac] 150 mg PO BID 06/06/18 12/20/18 History rosuvastatin 20 mg PO HS 06/06/18 12/20/18 History acetaminophen 500 mg PO TID 12/20/18 12/20/18 History cetyl,stear.alcoh-prop gly-sls 1 applic TOPICAL QAM 12/20/18 12/20/18 History [Cetaphil] diphenhydramine HCl [Benadryl 25 mg PO QID PRN 12/20/18 12/20/18 History Allergy] duloxetine 30 mg PO QAM 12/20/18 12/20/18 History magnesium hydroxide [Milk of 30 ml PO DAILY PRN 12/20/18 12/20/18 History Magnesia] meclizine 25 mg PO TID PRN 12/20/18 12/20/18 History modafinil 100 mg PO QAM 12/20/18 12/20/18 History triamcinolone acetonide 1 applic TOPICAL BID PRN 12/20/18 12/20/18 History Patient History Medical History Stroke-like symptoms Benign paroxysmal positional vertigo, bilateral Essential hypertension Fibromyalgia History of astrocytoma s/p craniotomy/XRT/chemo History of peptic ulcer disease History of seizure disorder Anxiety Chronic urticaria Depression GERD (gastroesophageal reflux disease) Hyperlipidemia Hypothyroidism Irritable bowel syndrome Osteoarthritis Surgical History History of D&C History of carpal tunnel surgery of right wrist History of tubal ligation History of craniotomy Social History Preferred Language: Luxembourger Communication Ability: Effective 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 current occupational status: unemployed Other Information That Helps Us Care for You: No Feels Safe at Home: Yes Safety Concerns: Feels Safe At This Time Smoking Status: Former smoker Hx Alcohol Use: No Hx Substance Use: No Physical Exam Physical Exam: Physical Exam: Constitutional: appearance over nourished, healthy Ears, Nose, Mouth and Throat: mucous membranes moist, no injection and skin nor mal, eyes normal Cardiovascular: normal S-1 and S-2 and regular rate and rhythm Respiratory: clear to auscultation (CTA) and no rales, ronchi or wheeze Musculoskeletal: non pitting peripheral edema and distant distal pulses Skin: no stigmata of neurocutaneous disease noted and normal and intact Eyes: extraocular muscles intact (EOMI) and pupils equal, round and reactive to light (PERRL) NEUROLOGIC EXAMINATION: Mental status: Alert and interactive Oriented to [facility], lives at [facility] Oriented to person Speech fluent with no evidence of aphasia Cranial Nerves smile eye brow raise symmetric Sensory: intact to light and cool touch Coordination: finger to nose with no bi pass, when picking up bottle tremor starts until she puts it down Gait/Stance: Posture normal. Gait evaluated by PT- continual ques when walking with walker Motor: Negative for pronator drift of out stretched arms with eyes closed. 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 left 4/5, hip flex right 5/5 left 4/5 Results & Data Vital Signs (Past 12 Hours) Vital Signs Temp Pulse Pulse Pulse Resp BP Pulse Ox 12/21/18 11:36 36.8 C 82 22 138/98 94 12/21/18 10:00 88 12/21/18 08:00 36.4 C L 83 20 121/91 92 12/21/18 03:13 36.6 C 88 19 142/92 H 92 Pulse Ox 12/21/18 11:36 12/21/18 10:00 93 12/21/18 08:00 12/21/18 03:13 Laboratory Results Abnormal lab results 12/20/18 12/20/18 Range/Units 12:12 18:30 Hemoglobin A1c 5.7 H (4.5-5.6) % Nasal Screen MRSA (PCR) Positive A (Negative) Diagnostic Findings TTE EF 60-65%, ASD CTA head-No significant stenosis, occlusion, or aneurysm within the [place]. Moderate midline shift to the left unchanged from the prior exam. CTA neck-No significant stenosis, occlusion, or dissection identified within the carotid or vertebral arteries. Mild scattered plaque formation MRI brain- Stable postsurgical changes status post right frontal craniotomy and resection. No acute intracranial pathology. No abnormal enhancement to suggest residual or recurrent disease.
[2018-12-21] MEDS ORDERED: ASPIRIN 81 MG ECTAB PO STA (17:27)
[2018-12-21] MEDS ORDERED: lisinopriL 5 MG TAB PO ONE (17:34)
[2018-12-21] MEDS ORDERED: AMLODIPINE BESYLATE 5 MG TAB PO ONE (17:35)
[2018-12-21] MEDS: ASPIRIN 81 MG CHEW PO SCH (18:00)
[2018-12-21] MEDS: ROSUVASTATIN CALCIUM 20 MG TAB PO SCH (20:27)
[2018-12-21] MEDS: LINACLOTIDE 72 MCG CAPSULE PO SCH (20:28)
[2018-12-21] MEDS: GABAPENTIN 300 MG CAP PO SCH (20:30)
[2018-12-21 21:46] LABS: Appearance Urine Cloudy (Clear); Bacteria Urine Automated 4+ (Negative); Bilirubin Urine Negative (Negative); Blood Urine Negative (Negative); Color Urine Yellow; Epithelial Cell Urine Auto >30 /lpf (0-5); Glucose Urine UA Negative (Negative); Ketones Urine Trace (Negative); Leukocyte Esterase Urine Negative (Negative); Nitrite Urine Positive (Negative); Protein Urine Negative (Negative); Specific Gravity Urine 1.025 (1.000-1.030); Urobilinogen Urine Negative (Negative)
[2018-12-21 22:00] LABS: RBC Urine Automated 0-4 /hpf (0-4)
[2018-12-22] MEDS: LEVOTHYROXINE SODIUM 50 MCG TABLET PO SCH (06:08)
[2018-12-22] MEDS: DULOXETINE HCL 30 MG CAP PO SCH (08:30)
[2018-12-22] MEDS: CARBAMAZEPINE 100 MG TABCR PO SCH (08:30)
[2018-12-22] MEDS: modafiniL 100 MG TAB PO SCH (08:31)
[2018-12-22] MEDS: predniSONE 20 MG TAB PO SCH (08:31)
[2018-12-22] MEDS: CETIRIZINE HCL 10 MG TABLET PO SCH (08:32)
[2018-12-22] MEDS: ACETAMINOPHEN 500 MG TAB PO SCH ×2 (08:42→14:47)
[2018-12-22] MEDS ORDERED: ASPIRIN 81 MG ECTAB PO SCH (09:00)
[2018-12-22] MEDS ORDERED: AMLODIPINE BESYLATE 5 MG TAB PO SCH (09:00)
[2018-12-22] MEDS: ASPIRIN 81 MG CHEW PO SCH (09:46)
[2018-12-22] MEDS ORDERED: DiphenhydrAMINE HCL 50 MG/ML VIAL IV STA (10:59)
[2018-12-22] MEDS ORDERED: EUCERIN CR 120 GM JAR EXT PRN (11:15)
[2018-12-22] MEDS ORDERED: CIPROFLOXACIN 500 MG TAB PO SCH (11:45)
[2018-12-22] MEDS ORDERED: NITROFURANTOIN MONOHYDRATE 100 MG CAP PO SCH (12:00)
--- NOTE | 2018-12-22 15:49 | Discharge Summary ---
Date of Service December 22, 2018 Admission HPI Per Admitting Provider This is a 58 y/o female who is a resident of [facility] with a PMH of astrocytoma s/p craniotomy/XRT/chemo, subdural hygroma, chronic left hemiparesis, hypertension, seizure disorder, GERD, dyslipidemia, and hypothyro idism who developed acute worsening of chronic left hemiparesis with associated facial droop and slurred speech. Pt reports she was participating with PT this morning around 11:30 am and suddenly couldn't move her left side due to weakness and difficulty thinking clearly. She states that her speech was slurred but denies any word finding or expressive aphasia. EMS was called and pt came into ED as a stroke alert. Since arrival in the ED, pt's deficits are improving. Currently, she feels as if her hemiparesis is back to baseline and her speech is no longer slurred. She does have residual facial droop but is unsure if this is improving from earlier. She had a frontal headache when she arrived in the ED but this has also improved and is only mild at present. She denies chest pain, palpitations, dyspnea, cough, dysphagia, nausea, dizziness, syncope, seizure- like activity, urinary incontinence, numbness or tingling. She does have a chronic tremor in her left hand that she feels is unchanged from baseline. Pt was admitted to this facility in May with similar symptoms - MRI at the time showed subdural hygroma with mass effect so pt was transferred [place] [facility] [place]. However, this was determined to be chronic. Neurology saw pt during that admission as well for recurrent LOC and dizziness - thought secondary to the Sinemet pt was taking which was discontinued with subsequent improvement. Pt does have a history of frequent falls. She was seen in this ED in October s/p fall with resultant L1 compression fracture. Admission Exam Per Admitting Provider Constitutional: WD/WN, vitals as above no altered mental status Eyes: PERRL, conjunctivae normal, anicteric sclerae EOM intact bilaterally (but pt had difficulty cooperating with this maneuver ) ENMT: external ear and nose normal, oropharynx normal Neck: trachea midline Respiratory: normal respiratory effort, lungs clear to auscultation does not use accessory muscles Auscultation: no rales, no rhonchi and no wheezes Cardiovascular: Rate/Rhythm: regular rate and regular rhythm Heart Sounds: no gallop and no murmur Vessels: no carotid bruit Extremities: no calf tenderness and no pedal edema Gastrointestinal (Abdomen): Inspection/Auscultation: normal bowel sounds; abdomen not distended Percussion/Palpation: abdomen soft; abdomen nontender Musculoskeletal: Head/Neck/Chest: neck supple Extremities: + abnormal strength (right UE/LE strength 5/5, left UE/LE strength 4/5 (weakness worse in UE)); no cyanosis Skin: multiple urticarial lesions on bilateral UE and back Neurologic: Speech / Cognition: normal speech mild residual left facial droop - most noticeable when pt smiles. Tongue midline. Able to raise bilateral eyebrows, close eyes and squeeze shut, shrug shoulders. Sensation to light touch grossly intact on face and bilateral UE/LE. Swallowing observed without apparent difficulty. Psychiatric: A+Ox3, euthymic affect Principal Diagnosis TIA UTI HTN idiopathic urticaria Discharge Data Allergies Allergy/AdvReac Type Severity Reaction Status Date / Time Penicillins Allergy Intermediate HIVES Verified 12/20/18 15:07 cimetidine Allergy Unknown Verified 12/20/18 15:07 erythromycin base Allergy Unknown Verified 12/20/18 15:07 phenytoin AdvReac Intermediate HIVES Verified 12/20/18 15:07 Consultations 12/20/18 14:07 ED Decision to Admit Stat 12/20/18 16:06 Consult Neurology Routine 12/20/18 17:17 Consult Case Management - Discharge Planning Routine Ordered Studies 12/20/18 12:27 CT head/brain wo con Stat 12/20/18 12:28 CT angio head w con Stat CT angio neck with con Stat 12/20/18 17:32 MR brain wo/w con Routine Hospital Course (1) TIA (transient ischemic attack): ASA added per neuro for presumed TIA. She was admitted to the hospitalist service and placed on telemetry. A urinalysis was checked and positive for an E coli UTI with sensitivity to Macrobid. She was placed on a 5 day course of this. At neuro baseline at time of discharge. Telemetry reviewed and negative for arrhythmias. (2) Recurrent urticaria: Pt has seen dermatology for this as outpatient. Has responded well to prednisone in the past but recurs off steroids. Continue Zyrtec/Benadryl/Prednisone taper started on admission as she is improved. Welts on her arms and trunk resolved with prednisone but there were significant hives on her R gluteus area and across her back. (3) Essential hypertension: Amlodipine added at low dose with close primary care follow-up recommended for recheck in one week. At time of discharge a face to face examination was performed revealing a hemodynamically stable and afebrile patient in no acute distress. 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 Physical exam was otherwise unremarkable aside from her skin findings as mentioned above. She was sent back to SNF in stable condition with close primary care follow-up recommended. Total Time Total Time Spent Total Time Spent (In Minutes): 60 Total Time Includes: Examination of the Patient, Discharge Planning, Medication Reconciliation and Communication With Other Providers Discharge Plan Discharge Items Patient Disposition: Transfer Group Home Fac Reason For Visit: STROKE ALERT Discharge Diagnosis: TIA UTI HTN idiopathic urticaria Condition on Discharge: Good Health Concerns: Blood pressure was elevated in the hospital-started medication for this-needs repeat BP check in one week Evidence of UTI present-given empiric antibiotic therapy, however, urine culture has not returned by time of discharge. Will need to have primary care provider follow-up these results. Activity: Resume your previous activity Non-emergency contact: Primary Care Provider Call non-emergency contact if: you have any medication questions, your symptoms worsen, your pain is not controlled, your pain is worsening, your pain is unusual for you, your pain is concerning for you and you have a fever Follow-up/Referrals: Nina Haile MD [Primary Care Provider] - Diet: Regular Addtl Attending Provider Instructions: Please take all medications as instructed on discharge list below. You have been started on antibiotics empirically pending urine culture results which are not resulted yet. Please follow-up with primary care doctor regarding definitive urine culture results in case therapy needs to be adjusted. You are being started on a blood pressure medicine called amlodipine. As a result, your blood pressure should be rechecked within 1 week with your primary care provider. It was a pleasure taking care of you! Please call if you have any questions or problems. You can reach a [facility] hospitalist on duty at [facility] 24 hours a day by calling [phone]. Take care of yourself. Vira Richards, DO [facility] [employer]tl Dye Mixer Provider Instructions: Risk Factors for Stroke: You can reduce your chances of stroke by working with your medical provider to adopt a healthy lifestyle. Some specific ways to lower your chance of stroke are: * If you are a smoker, now is the time to stop smoking cigarettes * If you are diabetic, improve the control of your blood sugars * Avoid excessive amounts of alcohol * Control high blood pressure * Lose weight if you are overweight * Be sure to lead an active lifestyle * Eat a healthy diet low in salt, cholesterol and fat You should know about other risk factors for stroke that you are unable to control. These include: * Age 55 years or older * Male gender * Certain racial groups: , or / * Family History of Stroke, Mini stroke or Heart Attack * Sickle Cell Disease Follow Up: It is important for you to keep your follow up appointments with your medical provider. Who to Call and When: Medical Emergencies: Call 911 immediately if you experience any of the following warning signs and symptoms of Stroke: * Sudden numbness or weakness of the face, arm or leg, especially on one side of the body * Sudden confusion, trouble speaking or understanding * Sudden trouble seeing in one or both eyes * Sudden trouble walking, dizziness, loss of balance or coordination * Sudden severe headache with no cause Do not delay calling 911 if you experience any warning signs or symptoms of a stroke. Delay in seeking medical attention may affect what treatments can be given to you. . Pending Studies at Discharge: Yes Studies:: urine culture not reported at time of discharge. Stand-Alone Forms: My [facility] Skilled Items Patient informed of condition?: Yes DNR: No Discharge Level of Care: Skilled Communicable Disease: No Discharge Prognosis: Stable Lines: None Urinary Catheter: No Medications and DC Order Prescriptions: New nitrofurantoin monohyd/m-cryst 100 mg Capsule 100 mg PO BID Qty: 10 RF: 0 amlodipine [Norvasc] 5 mg Tablet 5 mg PO QAM Qty: 30 RF: 1 aspirin 81 mg Tablet,Chewable 81 mg PO DAILY Qty: 90 RF: 1 prednisone 20 mg Tablet 20 mg PO DAILY Qty: 4 RF: 0 Continued acetaminophen [Tylenol] 325 mg Capsule 650 mg PO Q4 PRN (Reason: Fever Or Pain) RF: 0 multivitamin Tablet 1 tab PO QAM RF: 0 carbamazepine 100 mg Tablet Extended Release 12 Hr 200 mg PO BID RF: 0 cyanocobalamin (vitamin B-12) [Vitamin B-12] 500 mcg Tablet 500 mcg PO QAM RF: 0 levothyroxine [Synthroid] 50 mcg tablet 50 mcg PO QAM RF: 0 bisacodyl [Dulcolax (bisacodyl)] 10 mg Suppository 10 mg OR UD PRN (Reason: Constipation) RF: 0 ranitidine HCl [Zantac] 150 mg Tablet 150 mg PO BID RF: 0 gabapentin [Neurontin] 300 mg capsule 300 mg PO HS RF: 0 lysine [L-Lysine] 500 mg Tablet 500 mg PO QAM RF: 0 cholecalciferol (vitamin D3) [Vitamin D3] 1,000 unit Capsule 1,000 unit PO QAM RF: 0 rosuvastatin 20 mg Tablet 20 mg PO HS RF: 0 Zyrtec 10 mg Capsule 10 mg PO QAM RF: 0 Linzess 72 mcg capsule 72 mcg PO HS RF: 0 acetaminophen 500 mg Tablet 500 mg PO TID RF: 0 diphenhydramine HCl [Benadryl Allergy] 25 mg Tablet 25 mg PO QID PRN (Reason: Itching) RF: 0 modafinil 100 mg Tablet 100 mg PO QAM RF: 0 Cetaphil Cream 1 applic topical QAM RF: 0 duloxetine 30 mg Capsule,Delayed Release(Dr/Ec) 30 mg PO QAM RF: 0 triamcinolone acetonide 0.1 % Cream 1 applic TOPICAL BID PRN (Reason: Rash) RF: 0 magnesium hydroxide [Milk of Magnesia] 400 mg/5 mL Suspension 30 ml PO DAILY PRN (Reason: Constipation) RF: 0 meclizine 25 mg Tablet 25 mg PO TID PRN (Reason: Vertigo) RF: 0 Discharge Orders: Discharge Order (Routine); Ordered 12/22/18 Ordered By: Vira Richards Admission Data Admit Date/Time: 12/20/18 15:32 Attending Provider: Vira Richards Admit Provider: Vira Richards Primary Care Provider: Nina Haile Other Providers: Vira Richards ; Sae Gabriel Other Interventions: Discharge Summary Assessment (RN) Last Done: 12/22/18 16:04 DC Date/Time DO NOT enter until pt leaves facility: 12/22/18 17:20
--- NOTE | 2018-12-24 18:32 | Hospitalist Progress Note ---
Date of Service December 21, 2018 Assessment & Plan (1) TIA (transient ischemic attack): ASA added per neuro for presumed TIA. Check urinalysis. At neuro baseline. Telemetry reviewed and negative for arrythmias. (2) Recurrent urticaria: Pt has seen dermatology for this as outpatien. Has responded well to prednisone in the past but recurs off steroids. Continue Zyrtec/Benadryl/Prednisone taper started on admission as she is improved. (3) Essential hypertension: Amlodipine added at low dose with close primary care follow-up recommended for recheck in one week. (4) DVT prophylaxis: SCDs Full Code Plan for SNF in am when medically stable after adding aspirin. Vira Richards, Subjective pt feels improved today, urticaria improving but still itching, remains at baseline neurologic functioning with no residual deficits. facial droop on the left appears completely improved. Tolerating PO without issue. Review of Systems Review of Systems: All systems reviewed & are unremarkable except as noted in HPI & below Physical Exam Physical Exam: Constitutional: WD/WN, vitals as above no altered mental status Eyes: PERRL, conjunctivae normal, anicteric sclerae ENMT: external ear and nose normal, oropharynx normal Neck: trachea midline Respiratory: normal respiratory effort, lungs clear to auscultation does not use accessory muscles Auscultation: no rales, no rhonchi and no wheezes Cardiovascular: Rate/Rhythm: regular rate and regular rhythm Heart Sounds: no gallop and no murmur Vessels: no carotid bruit Extremities: no calf tenderness and no pedal edema Gastrointestinal (Abdomen): Inspection/Auscultation: normal bowel sounds; abdomen not distended Percussion/Palpation: abdomen soft; abdomen nontender Musculoskeletal: Head/Neck/Chest: neck supple Extremities: 5/5 strength throughout with some limited ability to accurately move the LUE Skin: multiple urticarial lesions on bilateral UE and back that are improved. Neurologic: Speech / Cognition: normal speech L facial droop resolved. Tongue midline. Able to raise bilateral eyebrows, close eyes and squeeze shut, shrug shoulders. Sensation to light touch grossly intact on face and bilateral UE/LE. Psychiatric: A+Ox3, euthymic affect
== END 2018-12-22 17:20 | DRG 69 ==
LOC: ED 12:26 → 2E 15:32 → SUATTDRO 15:32 → 2E 16:13 → UNDODISIN 20:05
DX: Z88.0 Allergy status to penicillin; M79.7 Fibromyalgia; K21.9 Gastro-esophageal reflux disease without esophagitis; F32.9 Major depressive disorder, single episode, unspecified; B96.20 Unspecified Escherichia coli [E. coli] as the cause of diseases classified elsewhere; E87.6 Hypokalemia; Z88.8 Allergy status to other drugs, medicaments and biological substances; L50.8 Other urticaria; G45.9 Transient cerebral ischemic attack, unspecified; I25.2 Old myocardial infarction; G40.909 Epilepsy, unspecified, not intractable, without status epilepticus; E78.5 Hyperlipidemia, unspecified; I10 Essential (primary) hypertension; N39.0 Urinary tract infection, site not specified; G81.94 Hemiplegia, unspecified affecting left nondominant side; E03.9 Hypothyroidism, unspecified; Z87.891 Personal history of nicotine dependence

== ENCOUNTER 2022-06-04 10:58 | Inpatient (IN) ==
--- NOTE | 2022-06-04 12:31 | XRay Report ---
SINGLE VIEW CHEST CLINICAL HISTORY: Sepsis. FINDINGS: An AP, portable, upright chest radiograph is compared to study dated 12/19/2020. The examin ation is degraded by portable technique and patient rotation. The cardiomediastinal silhouette is un remarkable. Chronic interstitial thickening similar to previous. There is mild bibasilar scarring/ate lectasis. The lungs and pleural spaces are otherwise clear. No pneumothorax is seen. The skeletal str uctures are osteopenic. The bony thorax is grossly intact. Degenerative change is seen throughout the spine. IMPRESSION: No active disease in the chest. ACT 112: Negative or not required by law. Electronically signed by: Aditya Ramirez M.D. 06/04/2022 12:30 PM
[2022-06-04 13:38] LABS: INR 1.1 (0.9-1.1); Prothrombin Time 11.4 Seconds (9.0-12.0)
[2022-06-04 13:40] LABS: Adenovirus PCR Not Detected (NotDetected); Bordetella parapertussis PCR Not Detected (NotDetected); Bordetella pertussis PCR Not Detected (NotDetected); Chlamydia pneumoniae PCR Not Detected (NotDetected); Coronavirus 229E PCR Not Detected (NotDetected); Coronavirus CoV-2 (COVID19)PCR Not Detected (NotDetected); Coronavirus HKU1 PCR Not Detected (NotDetected); Coronavirus NL63 PCR Not Detected (NotDetected); Coronavirus OC43PCR Not Detected (NotDetected); Human Metapneumovirus PCR Not Detected (NotDetected); Influenza A PCR Not Detected (NotDetected); Influenza B PCR Not Detected (NotDetected); Mycoplasma pneumoniae PCR Not Detected (NotDetected); Parainfluenza Virus 1 PCR Not Detected (NotDetected); Parainfluenza Virus 2 PCR Not Detected (NotDetected); Parainfluenza Virus 3 PCR Not Detected (NotDetected); Parainfluenza Virus 4 PCR Not Detected (NotDetected); Respiratory Syncytial VirusPCR Not Detected (NotDetected); Rhinovirus/Enterovirus PCR Not Detected (NotDetected)
[2022-06-04 13:43] LABS: Basophils # (auto) 0.01 K/uL (0-0.2); Basophils % (auto) 0.1 %; Hematocrit (blood only) 44.4 % (37.0-47.0); Hemoglobin 14.2 g/dl (12.0-16.0); Immature Granulocytes # (auto) 0.02 K/uL (0.01-0.20); Immature Granulocytes % (auto) 0.3 %; Lymphocytes # (auto) 2.77 K/uL (1.2-3.4); Lymphocytes % (auto) 38.6 %; Mean Corpuscular Hemoglobin 32.2 pg (25.0-34.0); Mean Corpuscular Volume 100.7 fL (80.0-100.0); Mean Platelet Volume 10.4 fL (9.4-12.4); Monocytes # (auto) 0.33 K/uL (0.11-0.59); Monocytes % (auto) 4.6 %; Neutrophils # (auto) 4.04 K/uL (1.40-6.50); Neutrophils % (auto) 56.4 %; Platelet Count 189 K/uL (130-400); RDW Standard Deviation 48.3 fL (36.4-46.3); Red Blood Count 4.41 M/uL (4.20-5.40); White Blood Count 7.17 K/ul (4.8-10.8)
[2022-06-04 13:48] LABS: Albumin Level 3.1 gm/dl (3.4-5.0); Anion Gap 7 (3-11); Bilirubin Direct 0.1 mg/dl (0-0.2); Bilirubin,Total 0.4 mg/dl (0.2-1.0); Calcium 8.4 mg/dl (8.6-10.3); Carbon Dioxide 26 mmol/L (21-32); Chloride 118 mmol/L (98-107); Magnesium 2.2 mg/dl (1.7-2.4); Potassium 3.3 mmol/L (3.5-5.1); Sodium 151 mmol/L (136-145)
[2022-06-04 13:54] LABS: Alanine Aminotransferase 20 U/L (7-52); Alkaline Phosphatase 129 U/L (34-104); Aspartate Aminotransferase 30 U/L (13-39); BUN Creatinine Ratio 30.1 (10-20); Blood Urea Nitrogen 22 mg/dl (6-23); Creatine Kinase 162 U/L (26-192); Est GFR (African American) 103.8 ml/min; Est GFR (Non-African American) 89.5 ml/min; Glucose 88 mg/dl (70-99(Fasting)); Phosphorus 2.6 mg/dl (2.5-4.9)
--- NOTE | 2022-06-04 13:55 | Electrocardiogram Report ---
Test Reason : Blood Pressure : / mmHG Vent. Rate : 072 BPM Atrial Rate : 072 BPM P-R Int : 160 ms QRS Dur : 062 ms QT Int : 378 ms P-R-T Axes : 010 -22 -24 degrees QTc Int : 413 ms Poor data quality, interpretation may be adversely affected Normal sinus rhythm Low voltage QRS Inferior infarct , age undetermined Poor R wave progression, consider anterior CT vs. lead placement vs. LVH Abnormal ECG When compared with ECG of 19-DEC-2020 15:38, Inferior infarct is now Present Nonspecific T wave abnormality, worse in Lateral leads Confirmed by Cedric Power ([id number]) on 06/04/2022 1:55:15 PM Referred By: Bev Ham Confirmed By:Cedric Power
[2022-06-04 14:11] LABS: Appearance Urine Turbid (Clear); Bilirubin Urine Negative (Negative); Blood Urine 3+ (Negative); Color Urine Dark Yellow; Glucose Urine UA Negative (Negative); Ketones Urine Trace (Negative); Leukocyte Esterase Urine Trace (Negative); Nitrite Urine Positive (Negative); Protein Urine 2+ (Negative); RBC Urine Automated 0-4 /hpf (0-4); Specific Gravity Urine 1.034 (1.000-1.030); Urobilinogen Urine Negative (Negative)
[2022-06-04 14:17] LABS: Troponin I High Sensitivity 8.4 pg/ml (0-14)
[2022-06-04] MEDS ORDERED: cefTRIAXone SODIUM 2,000 MG/70 ML BAG IV STA (14:33)
[2022-06-04] MEDS ORDERED: SODIUM CHLORIDE 0.9% 1000ML 1,000 ML IV ONE (14:35)
[2022-06-04 14:38] LABS: Bacteria Urine Automated 4+ (Negative)
--- NOTE | 2022-06-04 14:59 | History & Physical Report ---
Date of Service June 04, 2022 Assessment & Plan (1) Chronic hypernatremia: Plan: Patient is 61-year-old female with PMH astrocytoma s/p craniotomy, radiation, & chemo, subdural hygroma, CVA, chronic left hemiparesis, HTN, HLD, seizure disorder, GERD, hypothyroidism, and others listed below presented to ER for increased lethargy and noted hypernatremia outpatient Sodium 149 on 03/21/2022. 05/30/22 Na: 152. 06/02/22 Na: 155. She was given 1 L D5W 1/2 NSS on 06/03/2022 with repeat labs 06/04/22 with Na: 155 and K: 3.1 In ER Na: 151 Poor oral intake. + hypovolemia In ER given 1 L NSS Start LR 80ml/hr per attending Monitor BMP May need nephrology consult if no improvement (2) UTI (urinary tract infection): Plan: Reported dysuria UA: 3+ blood, + nitrate, trace leuk esterase, 4+ bacteria Lactate: 2.3 --> 1.6. Procalcitonin: 2.17. No leukocytosis Urine culture pending Blood culture pending In ER given Rocephin Continue Rocephin CBC in am (3) Lethargy: Plan: Patient with ongoing increased lethargy reported for months at [facility] with poor oral intake Wheelchair bound at baseline Increased lethargy likely secondary to underlying UTI, hypernatremia, hypovolemia CT Head: Chronic and postsurgical changes as above with no hemorrhage, mass effect, or evidence of acute territorial ischemia by CT criteria. No significant change as compared to prior studies. (4) Hypokalemia: Plan: K: 3.3. Magnesium: 2.2 Give additional KCl now. Resume home KCl 20 mEq twice daily Monitor BMP (5) Skin abnormality: Plan: RUE with intact and one deroofed blister. This was site of recent outpatient IV. Believe this is secondary to adhesive. No surrounding erythema or signs of cellulitis CT Abd/pelvis: Asymmetric right lateral chest wall and breast subcutaneous edema is noted in addition to right upper extremity edema and subcutaneous emphysema. This is likely secondary to recent IV. Patient is known difficult stick. No current signs of infection (6) Essential hypertension: Plan: Continue amlodipine (7) History of astrocytoma: (8) CVA (cerebral vascular accident): (9) Left hemiparesis: Plan: History astrocytoma s/p craniotomy, chemo, radiation Chronic left hemiparesis Uses wheelchair about baseline Continue aspirin, rosuvastatin (10) History of seizures: Plan: Continue carbamazepine (11) Hypothyroidism: Plan: TSH in am Continue levothyroxine DVT Prophylaxis Lovenox SQ Full Code as per discussion with pt Follows with Dr Haile for routine care Pt was seen and care coordinated with Dr Soler. See addendum I spent a total of 76 minutes reviewing notes, outpatient records, labs, medication, coordinating, documenting and providing care for this patient excluding time spent in the performance of separately billed services. History of Present Illness Chief Complaint: increased lethargy Primary Care Provider: Nina Haile MD Patient is 61-year-old female with PMH astrocytoma s/p craniotomy, radiation, & chemo, subdural hygroma, CVA, chronic left hemiparesis, HTN, HLD, seizure disorder, GERD, hypothyroidism, and others listed below presented to ER for increased lethargy. History obtained from patient as well as outpatient chart review. Limited history obtained from patient secondary to mental status. Patient does report that she has not been eating or drinking well. She states sometimes she coughs when eating. She denies choking and states "she knows what choking feels like". Patient states that nursing facility made her eat and drink yesterday. She does state that she had an IV and IV fluids 1 to 2 days ago but is unsure of the timeline. She reports chronic left-sided weakness and uses wheelchair at baseline. Patient reports chronic intermittent headaches that occur approximately every other day. Denies any increased headaches. Patient denies any vision changes. Denies nausea or vomiting. States had BM two days ago and thinks it was formed stool. She states has been having dysuria also. As per [facility] outpatient notes patient has had increased lethargy for several days. She has had very poor oral intake for months. Usually will eat breakfast but no other meal intake. It is reported patient had been noted to be more sleepy and somnolent for several months. Dietary has been trying adding supplements. She has noted left hemiparesis but has been having increased right sided weakness as well. 08/16/20 had EMG RLE which was limited secondary to patient tolerance, but there was no electrophysiological evidence of peroneal neuropathy, tibial neuropathy or polyneuropathy in the right lower extremity. Denies fever/chills, diaphoresis, N/V dizziness, syncope, CP, SOB, palpitations, rhinorrhea, abdominal pain, extremity edema, rashes. Outpatient chart reviewed: Sodium 149 on 03/21/2022 05/30/22 Na: 152 06/02/22 Na: 155. She was given 1 L D5 half-normal saline on 06/03/2022 with repeat labs 06/04/22 with sodium of 155 and potassium of 3.1 and was referred to ER. MRI brain with and without contrast: 03/22/2022: Postsurgical/posttreatment changes redemonstrated. No evidence of tumor progression Allergies Allergy/AdvReac Type Severity Reaction Status Date / Time Penicillins Allergy Intermediate HIVES Verified 06/04/22 13:06 cimetidine Allergy Unknown ON Verified 06/04/22 13:06 [facility] erythromycin base Allergy Unknown ON Verified 06/04/22 13:06 [facility] phenytoin AdvReac Intermediate HIVES Verified 06/04/22 13:06 Home Medications Medication Instructions Recorded Confirmed Type acetaminophen 325 mg capsule 650 mg PO Q4 PRN Fever Or Pain 06/06/18 06/04/22 History (Tylenol) carbamazepine 100 mg 200 mg PO AMHS 06/06/18 06/04/22 History tablet,extended release,12 hr cholecalciferol (vitamin D3) 25 1,000 unit PO QAM 06/06/18 06/04/22 History mcg (1,000 unit) capsule (Vitamin D3) cyanocobalamin (vitamin B-12) 500 500 mcg PO QAM 06/06/18 06/04/22 History mcg tablet (Vitamin B-12) gabapentin 300 mg capsule 300 mg PO HS 06/06/18 06/04/22 History (Neurontin) levothyroxine 50 mcg tablet 50 mcg PO DAILYBB 06/06/18 06/04/22 History (Synthroid) linaclotide 72 mcg capsule 72 mcg PO HS 06/06/18 06/04/22 History (Linzess) multivitamin 1 tab PO QAM 06/06/18 06/04/22 History acetaminophen 500 mg tablet 500 mg PO TID 12/20/18 06/04/22 History cetyl and stearate 1 applic topical AMPM 12/20/18 06/04/22 History alcohol-propylen glycol-sls topical cream (Cetaphil topical cream) amlodipine 5 mg tablet (Norvasc) 2.5 mg PO QAM 12/19/20 06/04/22 History aspirin 81 mg tablet,delayed 81 mg PO QAM 12/19/20 06/04/22 History release cetirizine 10 mg tablet 10 mg PO BID 12/19/20 06/04/22 History modafinil 200 mg tablet 200 mg PO QAM 12/19/20 06/04/22 History omega 1-kdi-toa-fish oil 1,200 mg 1 cap PO DAILY 12/19/20 06/04/22 History (144 mg-216 mg) capsule (Fish Oil) omeprazole 20 mg capsule,delayed 20 mg PO DAILYBB 12/19/20 06/04/22 History release potassium chloride 20 mEq 20 meq PO BID 12/19/20 06/04/22 History tablet,extended release rosuvastatin 40 mg tablet 40 mg PO HS 12/19/20 06/04/22 History sennosides 8.6 mg-docusate sodium 2 tab-cap PO BID 12/19/20 06/04/22 History 50 mg tablet (Senna Plus) miconazole nitrate 2 % topical 1 applic topical BID 06/04/22 06/04/22 History powder mirtazapine 15 mg tablet 15 mg PO HS 06/04/22 06/04/22 History neomycin-bacitracn Zn-polymyx 3.5 1 applic topical DAILY 06/04/22 06/04/22 History mg-400 unit-5,000 unit/gram top oint (Antibiotic([id number])) silver sulfadiazine 1 % topical 1 applic topical DAILY 06/04/22 06/04/22 History cream Past Med/Surg History Medical History (Updated 06/04/22 @ 18:05 by Aleksandra Haque PA-C) Anxiety Benign paroxysmal positional vertigo, bilateral Chronic urticaria Depression Essential hypertension Fibromyalgia GERD (gastroesophageal reflux disease) History of astrocytoma s/p craniotomy/XRT/chemo History of peptic ulcer disease History of seizure disorder Hyperlipidemia Hypothyroidism Irritable bowel syndrome Left hemiparesis Osteoarthritis Stroke-like symptoms Surgical History History of carpal tunnel surgery of right wrist History of craniotomy History of D&C History of tubal ligation Family History Sister Family history of reaction to anesthesia Social History Smoking Status: Former smoker Tobacco Type: Cigarettes Hx Alcohol Use: No Hx Substance Use: No Preferred Language: Hebrew Communication Ability: Effective Curatorial Specialist Required: No Beliefs That Will Affect Care: None marital status: Current Living Situation: Personal Care Facility Current Living Situation Comment: [facility] current occupational status: unemployed Feels Safe at Home: Yes Assistive Devices: None Review of Systems Review of Systems: All systems reviewed & are unremarkable except as noted in HPI & below Physical Exam Physical Exam: General: no distress, WDWN Head: normocephalic, atraumatic Eyes: conjunctiva non-injected, anicteric ENT: normal inspection external ears, nose, mucous membranes dry Neck: supple, trachea midline Lungs: clear, no respiratory distress, no wheezing/rhonchi/rales CV: RRR, no murmur Abd: normal BS, soft, non-tender Ext: no cyanosis, no calf tenderness Neuro: Alert, Slow responses. Oriented to person. Thinks is in [facility]. Unsure of date. +left sided hemiparesis (chronic). +diffuse right sided weakness, able to dorsiflex plantar flex right foot, unable to flex extend knee or hip. sensation to light touch intact RLE. able to move fingers wrist, active flexion shoulder approx 60 degrees Skin: warm, dry, right upper arm with several blisters and one blister that is deroofed (pt states had tape and IV there) without surrounding erythema. non- tender to palpation, no crepitus Results & Data Results & Data Vital Signs (Past 12 Hours) Vital Signs Temp Pulse Resp BP Pulse Ox O2 Del Method O2 Flow Rate 06/04/22 14:44 69 16 06/04/22 14:44 91/64 L 06/04/22 14:30 70 15 06/04/22 14:00 71 15 06/04/22 13:42 71 14 06/04/22 13:42 92/68 L 06/04/22 13:30 74 18 06/04/22 13:00 73 14 06/04/22 12:30 72 14 93 06/04/22 12:00 72 13 06/04/22 11:30 68 13 94 06/04/22 11:11 68 16 06/04/22 12:01 96 Room Air 06/04/22 12:14 74 06/04/22 11:05 Room Air 96 06/04/22 11:05 36.8 C 73 16 117/81 96 Room Air Laboratory Results Short CBC 06/04/22 Range/Units 12:49 WBC 7.17 (4.8-10.8) K/ul Hgb 14.2 (12.0-16.0) g/dl Hct 44.4 (37.0-47.0) % Plt Count 189 (130-400) K/uL BMP 06/04/22 12:49 Sodium 151 H Potassium 3.3 L Chloride 118 H Carbon Dioxide 26 BUN 22 Creatinine 0.73 Glucose 88 Calcium 8.4 L Cardiac Enzymes 06/04/22 Range/Units 12:49 Total Creatine Kinase 162 (26-192) U/L Liver Function 06/04/22 Range/Units 12:49 Total Bilirubin 0.4 (0.2-1.0) mg/dl Direct Bilirubin 0.1 (0-0.2) mg/dl AST 30 (13-39) U/L ALT 20 (7-52) U/L Alkaline Phosphatase 129 H (34-104) U/L Albumin 3.1 L (3.4-5.0) gm/dl Urine 06/04/22 Range/Units 13:41 Urine Color Dark Yellow Urine Appearance Turbid A (Clear) Urine pH 5.0 (4.5-7.5) Ur Specific [place] 1.034 H (1.000-1.030) Urine Protein 2+ H (Negative) Urine Glucose (UA) Negative (Negative) Diagnostic Findings Chest X-Ray 06/04/22 11:31 SINGLE VIEW CHEST CLINICAL HISTORY: Sepsis. FINDINGS: An AP, portable, upright chest radiograph is compared to study dated 12/19/2020. The examination is degraded by portable technique and patient rotation. The cardiomediastinal silhouette is unremarkable. Chronic interstitial thickening similar to previous. There is mild bibasilar scarring/atelectasis. The lungs and pleural spaces are otherwise clear. No pneumothorax is seen. The skeletal structures are osteopenic. The bony thorax is grossly intact. Degenerative change is seen throughout the spine. IMPRESSION: No active disease in the chest. ACT 112: Negative or not required by law. Electronically signed by: Aditya Ramirez M.D. 06/04/2022 12:30 PM Abdomen/Pelvis CT 06/04/22 14:[address] WITH IV CONTRAST CT DOSE: 1155.34 mGy.cm HISTORY: Acute urinary tract infection with generalized abdominal pain uti, confusion TECHNIQUE: Multiaxial CT images of the abdomen and pelvis were performed following the IV administration of 94 cc of Optiray, A dose lowering technique was utilized adhering to the principles of ALARA. COMPARISON STUDY: CT lumbar spine 10/24/2018 FINDINGS: Limited exam secondary to upper extremity positioning. Subcutaneous and deep tissue edema of the imaged right upper extremity with subcutaneous emphysema. Asymmetric right lateral chest and breast edema with mild skin thickening. Mild subsegmental bibasilar atelectasis. 8 mm subpleural solid nodule of the lateral segment right middle lobe on image 36. No pneumatosis or pneumoperitoneum. The spleen measures within the upper limits of normal at 12.6 cm. Unremarkable pancreas and right adrenal gland. 8 mm soft tissue attenuating indeterminate left adrenal gland nodule. The gallbladder and liver are within normal limits. Patency of the hepatic and portal veins. 4 mm nonobstructing calculus of the superior pole left kidney. No ureteral calculi or hydronephrosis. Unremarkable urinary bladder. Indeterminate hypodense lesion of the right adnexum measuring 4.5 cm. Atherosclerosis of the aorta. No lymphadenopathy. No bowel obstruction. Moderate to marked fecal retention of the rectum with circumferential rectal wall thickening and mild adjacent inflammatory stranding. Noninflamed appendix. No acute fracture. Avascular necrosis of the femoral heads without articular collapse. Chronic L5 pars defects with grade 1 anterolisthesis. L2 vertebral body hemangioma. Chronic L1 compression deformity with progressively worsened vertebral body height loss and 2 mm retropulsion. IMPRESSION: 1. 4 mm left renal calculus. No ureteral calculi or hydronephrosis. 2. No bowel obstruction or pneumoperitoneum. 3. Moderate rectal fecal retention with findings suggestive of stercoral proctitis. 4. 8 mm right middle lobe solid pulmonary nodule. 5. Indeterminate 4.5 cm right adnexal lesion should be further evaluated with a nonemergent follow-up pelvic ultrasound. 6. Asymmetric right lateral chest wall and breast subcutaneous edema is noted in addition to right upper extremity edema and subcutaneous emphysema. Correlate with clinical exam findings to exclude infection. ACT 112: Negative or not required by law. The above report was generated using voice recognition software. It may contain grammatical, syntax or spelling errors. Electronically signed by: Isaac Tubbs M.D. 06/04/2022 4:[address] 06/04/22 14:30 CT SCAN OF THE BRAIN WITHOUT IV CONTRAST CLINICAL HISTORY: Change in mental status. History of astrocytoma. COMPARISON STUDY: CT of the brain dated 12/20/2018. TECHNIQUE: Unenhanced axial CT scan of the brain is performed from the vertex to the skull base. A dose lowering technique was utilized adhering to the principles of ALARA. FINDINGS: Brain parenchyma: Right frontal encephalomalacia is unchanged and consistent with a site of previous surgery. Right basal ganglia calcifications are unchanged. There is age-related involutional change noting moderate subcortical and periventricular microangiopathic disease. There is no hemorrhage, mass effect, or evidence of acute territorial ischemia by CT criteria. A chronic lacunar infarct is noted in the left thalamus. Miller-white matter differentiation is preserved. No extra-axial fluid collection is seen. Ventricles, sulci, cisterns: Prominent secondary to involutional change. Intracranial vasculature: There is atherosclerotic calcification of the cavernous carotid and vertebral arteries. Calvarium: The skeletal structures are heterogeneously osteopenic. There is postsurgical change from right-sided craniotomy. No destructive calvarial lesion is identified. Sinuses and mastoids: There is mild mucosal thickening in the right maxillary antrum in the right anterior ethmoid sinuses. There is complete opacification of the right frontal sinus. The mastoid air cells are well pneumatized. Orbits: The bony orbits are grossly intact. IMPRESSION: Chronic and postsurgical changes as above with no hemorrhage, mass effect, or evidence of acute territorial ischemia by CT criteria. No significant change as compared to prior studies. ACT 112: Negative or not required by law. Electronically signed by: Aditya Ramirez M.D. 06/04/2022 4:37 PM Supervising Physician Co-Signing Physician Notes 61 yo F w/ PMH of astrocytoma s/p craniotomy/XRT/chemo, subdural hygroma, CVA/ chronic left hemiparesis, hypertension, seizure disorder, GERD, dyslipidemia, and hypothyroidism presented to the ED 06/04 from [facility] for eval of worsening generalized confusion. Pt appears oriented to place and , not a very good historian. Reports decreased PO intake but also states feels thirsty. Oral mucosa is very dry. Also reports some diarrhea, but denies nausea and vomiting. Acute metabolic encephalopathy: likely 2/2 UTI. carbamazepine level wnl Acute UTI: h/o E coli uti/sensitive to cephalosporins, procal elevated, rocephin 2 g iv daily. Increased blood lactic acid level: 2.3 at presentation, c/w IVF, trend to normal. Respiratory viral panel negative. EKG and Trops wnl. CXR w/ no acute findings. Hypernatremia: likely 2/2 dehydration 2/2 decreased PO intake. Clinically dry at presentation. Will use LR at 80 ml/hr. Monitor labs in AM Hypokalemia: replete w/ 40 meq KCL today. On Exam: to be completed GENERAL: Alert and oriented x2. NAD, on RA. Appears chorionically ill/weak and frail. HEENT: No pallor, no icterus. Pupils equal, round and reactive to light. Oral mucosa very dry. NECK: No JVD, no neck masses. HEART: S1 and S2 heard. Regular rate and rhythm. No murmur, no gallop. RESPIRATORY SYSTEM: Normal AP diameter. No accessory muscle use. No wheezing, no crackles. ABDOMEN: Soft, bowel sounds present, nontender, no distention. CENTRAL NERVOUS SYSTEM: No facial droop. Speech is slow. Obeys simple commands. Left hemiparesis noted. EXTREMITIES: No edema, no erythema seen. I have seen and examined the patient and have discussed the case with the provider above. I agree with the assessment and plan as stated. (8) CVA (cerebral vascular accident) CVA mechanism: unspecified Qualified Code(s): I63.9 - Cerebral infarction, unspecified (11) Hypothyroidism Hypothyroidism type: acquired Qualified Code(s): E03.9 - Hypothyroidism, unspecified
--- NOTE | 2022-06-04 15:08 | Emergency Department Note ---
Impression & Plan Hypernatremia, UTI (urinary tract infection), History of seizures, History of astrocytoma, Lethargy, Skin abnormality ED Provider Note NAME: RAMY BUCKLEY AGE: 61 SEX: F ARRIVES VIA: Ambulance INFORMANT: Patient ED PROVIDER(S): Carlin Hooker MD CHIEF COMPLAINT: Confusion PLAN: Disposition: Admit MEDICAL DECISION MAKING: The patient is a 61-year-old woman with a past medical history of prior CVA and astrocytoma with baseline left sided hemiparesis who presents to the emergency department [facility] for evaluation of worsening gene ralized malaise and confusion from her baseline over the past several days. The patient is a poor historian and cannot describe exactly why she was sent to the emergency department. There is no report of fevers, cough, congestion or shortness of breath. On arrival the patient is in no acute distress, chronically ill-appearing, afebrile with stable vital signs. She appears clinically dry. RUE and right chest/abdominal wall with dependent edema. Mild superficial ulceration of right upper arm at site of infiltrated IV site placed and fci. Compartments are soft. No erythema, warmth, tenderness. WBC, H/H and platelets within normal limits. Chemistry without metabolic acidosis. Sodium however is 151 consistent with an approximate 3 L free water deficit. Potassium 3.3 and electrolytes otherwise unremarkable. Lactic acid initially 2.3 in the setting of the patient's dehydration. BUN/creatinine> 30. LFTs unremarkable. CPK within normal limits. High-sensitivity troponin 8.4, within normal limits. Procalcitonin is elevated at 2.1 in the setting of suspected urinary tract infection with positive nitrites, leukoesterase, WBCs and 4+ bacteria. The patient's carbamazepine level was within normal limits. Respiratory viral panel/[employer] was negative. CT of the head and CT of the and pelvis were performed for additional evaluation of symptoms. However given the patient's confusion related to symptomatic hyponatremia patient was referred for admission for further management. Case was discussed with Rashmi Haque, [facility] PAC, with Dr. Soler, [facility] hospitalist who will evaluate the patient for admission. Subsequently, CT head negative for acute abnormality. CT abd/pelvis negative for acute intra-abdominal findings but incidental findings noted. Additionally, note is made of asymmetric edema of right lateral chest and upper arm with small amount of subcutaneous emphysema that correlates to site of infiltrated IV. Exam is not c/w with infection. Admitting team aware and agrees. Further management per admitting team. Triage Nursing notes reviewed and agree them. Prior/outside medical records reviewed Vital Signs: reviewed Differential diagnosis: Infection, dehydration, metabolic abnormality, hypo/hyperglycemia, electrolyte disturbance, anemia, hypoxia, cardiac sources, intracerebral event, toxicologic, neurologic, as well as other pathologies. ER treatment provided: See below. Diagnostics interpreted by me: ECG: Normal sinus rhythm, 72 bpm, LVH, no overt ST elevation or depression, QTc 413, QRS 62 Cardiac Monitoring: An order for continuous cardiac monitoring was placed and demonstrated Normal sinus rhythm, 72 bpm, no ectopy. Laboratory studies: See below Imaging studies: See below Consultation(s): Case was discussed with Rashmi Haque, [facility] PAC, with Dr. Soler, [facility] hospitalist who will evaluate the patient for admission. HPI: The patient is a 61-year-old woman with a past medical history of prior CVA and astrocytoma with baseline left sided hemiparesis who presents to the emergency department from her penitent[facility] facility for evaluation of worsening generalized malaise and confusion from her baseline over the past several days. The patient is a poor historian and cannot describe exactly why she was sent to the emergency department. There is no report of fevers, cough, congestion or shortness of breath. ROS: See above HPI for pertinent positives & negatives. A total of 10 systems reviewed and were otherwise negative. VITALS:See Below PHYSICAL EXAMINATION: GENERAL: Awake, alert, chronically ill-appearing, in no distress HENT: Normocephalic, atraumatic. Oropharynx with dry mucous membranes and otherwise unremarkable. EYES: Normal conjunctiva. Sclera non-icteric. NECK: Supple. No nuchal rigidity. FROM. No JVD. RESPIRATORY: Clear to auscultation. CARDIAC: Regular rate, normal rhythm. Extremities warm and well perfused. Pulses equal. ABDOMEN: Soft, non-distended. No tenderness to palpation. No rebound or guarding. No masses. RECTAL: Deferred. MUSCULOSKELETAL: Chest examination reveals no tenderness. The back is symmetrical on inspection without obvious abnormality. There is no CVA tenderness to palpation. No joint edema. EXTREMITIES: RUE and right chest/abdominal wall with dependent edema. Mild superficial ulceration of right upper arm at site of infiltrated IV site placed and fci. Compartments are soft. No erythema, warmth, tenderness. Calves are equal size bilaterally and non-tender. Scant edema. No discoloration. NEURO: Left sided hemiparesis at baseline. SKIN: Warm/dry. No jaundice noted. ED COURSE: Critical Care: I have personally spent greater than 35 minutes of critical care time in the direct management of this patient. This includes bedside care, interpretation of diagnostic studies, and testing, discussion with consultants, patient, and family members, and other required patient management activities. This 35 minutes is in excess of all separately billable procedures. Carlin Hooker MD Past Med/Surg History Medical History (Updated 06/05/22 @ 00:32 by Carlin Hooker MD) Anxiety Benign paroxysmal positional vertigo, bilateral Chronic urticaria Depression Essential hypertension Fibromyalgia GERD (gastroesophageal reflux disease) History of astrocytoma s/p craniotomy/XRT/chemo History of peptic ulcer disease History of seizure disorder Hyperlipidemia Hypothyroidism Irritable bowel syndrome Left hemiparesis Osteoarthritis Stroke-like symptoms Surgical History History of carpal tunnel surgery of right wrist History of craniotomy History of D&C History of tubal ligation Family History Sister Family history of reaction to anesthesia Social History Smoking Status: Former smoker Tobacco Type: Cigarettes Hx Alcohol Use: Yes Hx Substance Use: No Preferred Language: [place] Citizen Communication Ability: Effective Clinical Laboratory Technologist Required: No Beliefs That Will Affect Care: None marital status: Current Living Situation: Senior Care Current Living Situation Comment: [facility] current occupational status: unemployed Other Information That Helps Us Care for You: No Feels Safe at Home: Yes Safety Concerns: Feels Safe At This Time Assistive Devices: None Allergies Allergies Allergy/AdvReac Type Severity Reaction Status Date / Time Penicillins Allergy Intermediate HIVES Verified 06/04/22 13:06 cimetidine Allergy Unknown ON [facility] Verified 06/04/22 13:06 [place] [facility] erythromycin base Allergy Unknown ON [facility] Verified 06/04/22 13:06 [place] [facility] phenytoin AdvReac Intermediate HIVES Verified 06/04/22 13:06 Home Meds Home Medications Medication Instructions Recorded Confirmed acetaminophen 325 mg capsule 650 mg PO Q4 PRN Fever Or Pain 06/06/18 06/04/22 (Tylenol) carbamazepine 100 mg 200 mg PO AMHS 06/06/18 06/04/22 tablet,extended release,12 hr cholecalciferol (vitamin D3) 25 1,000 unit PO QAM 06/06/18 06/04/22 mcg (1,000 unit) capsule (Vitamin D3) cyanocobalamin (vitamin B-12) 500 500 mcg PO QAM 06/06/18 06/04/22 mcg tablet (Vitamin B-12) gabapentin 300 mg capsule 300 mg PO HS 06/06/18 06/04/22 (Neurontin) levothyroxine 50 mcg tablet 50 mcg PO DAILYBB 06/06/18 06/04/22 (Synthroid) linaclotide 72 mcg capsule 72 mcg PO HS 06/06/18 06/04/22 (Linzess) multivitamin 1 tab PO QAM 06/06/18 06/04/22 acetaminophen 500 mg tablet 500 mg PO TID 12/20/18 06/04/22 cetyl and stearate 1 applic topical AMPM 12/20/18 06/04/22 alcohol-propylen glycol-sls topical cream (Cetaphil topical cream) amlodipine 5 mg tablet (Norvasc) 2.5 mg PO QAM 12/19/20 06/04/22 aspirin 81 mg tablet,delayed 81 mg PO QAM 12/19/20 06/04/22 release cetirizine 10 mg tablet 10 mg PO BID 12/19/20 06/04/22 modafinil 200 mg tablet 200 mg PO QAM 12/19/20 06/04/22 omega 4-vje-czs-fish oil 1,200 mg 1 cap PO DAILY 12/19/20 06/04/22 (144 mg-216 mg) capsule (Fish Oil) omeprazole 20 mg capsule,delayed 20 mg PO DAILYBB 12/19/20 06/04/22 release potassium chloride 20 mEq 20 meq PO BID 12/19/20 06/04/22 tablet,extended release rosuvastatin 40 mg tablet 40 mg PO HS 12/19/20 06/04/22 sennosides 8.6 mg-docusate sodium 2 tab-cap PO BID 12/19/20 06/04/22 50 mg tablet (Senna Plus) miconazole nitrate 2 % topical 1 applic topical BID 06/04/22 06/04/22 powder mirtazapine 15 mg tablet 15 mg PO HS 06/04/22 06/04/22 neomycin-bacitracn Zn-polymyx 3.5 1 applic topical DAILY 06/04/22 06/04/22 mg-400 unit-5,000 unit/gram top oint (Antibiotic([id number])) silver sulfadiazine 1 % topical 1 applic topical DAILY 06/04/22 06/04/22 cream Results & Data (ED) Vital Signs Vital Signs - 24 hr 06/04/22 11:05 06/04/22 11:05 06/04/22 12:14 Temperature 36.8 C Temperature Source Oral Pulse Rate 73 74 Pulse Rate from SpO2 Sensor Respiratory Rate 16 Respiratory Effort / Characteristics Non-Labored Respiratory Depth Normal Respiratory Pattern Regular Blood Pressure 117/81 Blood Pressure Mean 93 Pulse Oximetry 96 Oxygen Delivery Method Room Air Room Air Oxygen Flow Rate 96 Sepsis Recent Fever Within 48 Hours No Sepsis New/Unexplained Change in Mental Status N/A Sepsis Action Taken by Nursing No Action Required 06/04/22 12:01 06/04/22 11:11 06/04/22 11:30 Temperature Temperature Source Pulse Rate 68 68 Pulse Rate from SpO2 Sensor 74 Respiratory Rate 16 13 Respiratory Effort / Characteristics Respiratory Depth Respiratory Pattern Blood Pressure Blood Pressure Mean Pulse Oximetry 96 94 Oxygen Delivery Method Room Air Oxygen Flow Rate Sepsis Recent Fever Within 48 Hours Sepsis New/Unexplained Change in Mental Status Sepsis Action Taken by Nursing 06/04/22 12:00 06/04/22 12:30 06/04/22 13:00 Temperature Temperature Source Pulse Rate 72 72 73 Pulse Rate from SpO2 Sensor 72 Respiratory Rate 13 14 14 Respiratory Effort / Characteristics Respiratory Depth Respiratory Pattern Blood Pressure Blood Pressure Mean Pulse Oximetry 93 Oxygen Delivery Method Oxygen Flow Rate Sepsis Recent Fever Within 48 Hours Sepsis New/Unexplained Change in Mental Status Sepsis Action Taken by Nursing 06/04/22 13:30 06/04/22 13:42 06/04/22 13:42 Temperature Temperature Source Pulse Rate 74 71 Pulse Rate from SpO2 Sensor Respiratory Rate 18 14 Respiratory Effort / Characteristics Respiratory Depth Respiratory Pattern Blood Pressure 92/68 L Blood Pressure Mean 76 Pulse Oximetry Oxygen Delivery Method Oxygen Flow Rate Sepsis Recent Fever Within 48 Hours Sepsis New/Unexplained Change in Mental Status Sepsis Action Taken by Nursing 06/04/22 14:00 06/04/22 14:30 06/04/22 14:44 Temperature Temperature Source Pulse Rate 71 70 Pulse Rate from SpO2 Sensor Respiratory Rate 15 15 Respiratory Effort / Characteristics Respiratory Depth Respiratory Pattern Blood Pressure 91/64 L Blood Pressure Mean 73 Pulse Oximetry Oxygen Delivery Method Oxygen Flow Rate Sepsis Recent Fever Within 48 Hours Sepsis New/Unexplained Change in Mental Status Sepsis Action Taken by Nursing 06/04/22 14:44 06/04/22 14:51 06/04/22 14:51 Temperature Temperature Source Pulse Rate 69 69 Pulse Rate from SpO2 Sensor Respiratory Rate 16 17 Respiratory Effort / Characteristics Respiratory Depth Respiratory Pattern Blood Pressure 90/62 L Blood Pressure Mean 71 Pulse Oximetry Oxygen Delivery Method Oxygen Flow Rate Sepsis Recent Fever Within 48 Hours Sepsis New/Unexplained Change in Mental Status Sepsis Action Taken by Nursing 06/04/22 15:00 06/04/22 15:00 06/04/22 15:30 Temperature Temperature Source Pulse Rate 70 Pulse Rate from SpO2 Sensor Respiratory Rate 16 Respiratory Effort / Characteristics Respiratory Depth Respiratory Pattern Blood Pressure 93/61 L 99/72 L Blood Pressure Mean 71 81 Pulse Oximetry Oxygen Delivery Method Oxygen Flow Rate Sepsis Recent Fever Within 48 Hours Sepsis New/Unexplained Change in Mental Status Sepsis Action Taken by Nursing 06/04/22 15:30 06/04/22 16:00 06/04/22 16:00 Temperature Temperature Source Pulse Rate 68 67 Pulse Rate from SpO2 Sensor Respiratory Rate 17 12 Respiratory Effort / Characteristics Respiratory Depth Respiratory Pattern Blood Pressure 101/67 Blood Pressure Mean 78 Pulse Oximetry Oxygen Delivery Method Oxygen Flow Rate Sepsis Recent Fever Within 48 Hours Sepsis New/Unexplained Change in Mental Status Sepsis Action Taken by Nursing Laboratory Data 06/04/22 12:49 06/04/22 12:49 Lab Results 06/04/22 06/04/22 06/04/22 Range/Units 12:25 12:49 12:49 WBC 7.17 (4.8-10.8) K/ul RBC 4.41 (4.20-5.40) M/uL Hgb 14.2 (12.0-16.0) g/dl Hct 44.4 (37.0-47.0) % MCV 100.7 H (80.0-100.0) fL MCH 32.2 (25.0-34.0) pg MCHC 32.0 (32.0-36.0) g/dL RDW Std Deviation 48.3 H (36.4-46.3) fL RDW Coeff of Claudio 13.0 (11.5-14.5) % Plt Count 189 (130-400) K/uL MPV 10.4 (9.4-12.4) fL Immature Gran % (Auto) 0.3 % Neut % (Auto) 56.4 % Lymph % (Auto) 38.6 % Perry % (Auto) 4.6 % Eos % (Auto) 0.0 % Baso % (Auto) 0.1 % Neut # (Auto) 4.04 (1.40-6.50) K/uL Lymph # (Auto) 2.77 (1.2-3.4) K/uL Perry # (Auto) 0.33 (0.11-0.59) K/uL Eos # (Auto) 0.00 (0-0.50) K/uL Baso # (Auto) 0.01 (0-0.2) K/uL Immature Gran # (Auto) 0.02 (0.01-0.20) K/uL PT 11.4 (9.0-12.0) Seconds INR 1.1 (0.9-1.1) Sodium (136-145) mmol/L Potassium (3.5-5.1) mmol/L Chloride (98-107) mmol/L Carbon Dioxide (21-32) mmol/L Anion Gap (3-11) BUN (6-23) mg/dl Creatinine (0.6-1.2) mg/dl Est Cr Clr Drug Dosing Est GFR ( Amer) ml/min Est GFR (Non-Af Amer) ml/min BUN/Creatinine Ratio (10-20) Glucose (70-99(Fasting)) mg/dl Lactate (0.4-2.0) mmol/L Calcium (8.6-10.3) mg/dl Phosphorus (2.5-4.9) mg/dl Magnesium (1.7-2.4) mg/dl Total Bilirubin (0.2-1.0) mg/dl Direct Bilirubin (0-0.2) mg/dl AST (13-39) U/L ALT (7-52) U/L Alkaline Phosphatase (34-104) U/L Total Creatine Kinase (26-192) U/L Troponin I High Sens (0-14) pg/ml Total Protein (6.0-8.3) gm/dl Albumin (3.4-5.0) gm/dl Procalcitonin (0-0.5) ng/ml Urine Color Urine Appearance (Clear) Urine pH (4.5-7.5) Ur Specific [place] (1.000-1.030) Urine Protein (Negative) Urine Glucose (UA) (Negative) Urine Ketones (Negative) Urine Blood (Negative) Urine Nitrite (Negative) Urine Bilirubin (Negative) Urine Urobilinogen (Negative) Ur Leukocyte Esterase (Negative) Urine WBC (Auto) (0-5) /hpf Urine RBC (Auto) (0-4) /hpf U Hyaline Cast (Auto) (0-5) /lpf U Epithel Cells (Auto) (0-5) /lpf Urine Bacteria (Auto) (Negative) Granular Casts (0) /lpf Carbamazepine (4-12) mcg/ml Adenovirus (PCR) Not Detected (NotDetected) B. pertussis DNA (PCR) Not Detected (NotDetected) B.parapertussis DNA PCR Not Detected (NotDetected) C. pneumoniae DNA (PCR) Not Detected (NotDetected) Coronavirus OC43 (PCR) Not Detected (NotDetected) Coronavirus HKU1 (PCR) Not Detected (NotDetected) Coronavirus 229E (PCR) Not Detected (NotDetected) SARS-CoV-2 (PCR) Not Detected (NotDetected) Coronavirus NL63 (PCR) Not Detected (NotDetected) Human Metapneumovir PCR Not Detected (NotDetected) Influenza Type A (PCR) Not Detected (NotDetected) Influenza Type B (PCR) Not Detected (NotDetected) M. pneumoniae (PCR) Not Detected (NotDetected) Parainfluenza 1 (PCR) Not Detected (NotDetected) Parainfluenza 2 (PCR) Not Detected (NotDetected) Parainfluenza 3 (PCR) Not Detected (NotDetected) Parainfluenza 4 (PCR) Not Detected (NotDetected) RSV (PCR) Not Detected (NotDetected) Entero/Rhino (PCR) Not Detected (NotDetected) 06/04/22 06/04/22 06/04/22 Range/Units 12:49 12:49 12:49 WBC (4.8-10.8) K/ul RBC (4.20-5.40) M/uL Hgb (12.0-16.0) g/dl Hct (37.0-47.0) % MCV (80.0-100.0) fL MCH (25.0-34.0) pg MCHC (32.0-36.0) g/dL RDW Std Deviation (36.4-46.3) fL RDW Coeff of Claudio (11.5-14.5) % Plt Count (130-400) K/uL MPV (9.4-12.4) fL Immature Gran % (Auto) % Neut % (Auto) % Lymph % (Auto) % Perry % (Auto) % Eos % (Auto) % Baso % (Auto) % Neut # (Auto) (1.40-6.50) K/uL Lymph # (Auto) (1.2-3.4) K/uL [place] # (Auto) (0.11-0.59) K/uL Eos # (Auto) (0-0.50) K/uL Baso # (Auto) (0-0.2) K/uL Immature Gran # (Auto) (0.01-0.20) K/uL PT (9.0-12.0) Seconds INR (0.9-1.1) Sodium 151 H (136-145) mmol/L Potassium 3.3 L (3.5-5.1) mmol/L Chloride 118 H (98-107) mmol/L Carbon Dioxide 26 (21-32) mmol/L Anion Gap 7 (3-11) BUN 22 (6-23) mg/dl Creatinine 0.73 (0.6-1.2) mg/dl Est Cr Clr Drug Dosing Not Reportable Est GFR ( Amer) 103.8 ml/min Est GFR (Non-Af Amer) 89.5 ml/min BUN/Creatinine Ratio 30.1 H (10-20) Glucose 88 (70-99(Fasting)) mg/dl Lactate 2.3 H* (0.4-2.0) mmol/L Calcium 8.4 L (8.6-10.3) mg/dl Phosphorus 2.6 (2.5-4.9) mg/dl Magnesium 2.2 (1.7-2.4) mg/dl Total Bilirubin 0.4 (0.2-1.0) mg/dl Direct Bilirubin 0.1 (0-0.2) mg/dl AST 30 (13-39) U/L ALT 20 (7-52) U/L Alkaline Phosphatase 129 H (34-104) U/L Total Creatine Kinase 162 (26-192) U/L Troponin I High Sens 8.4 (0-14) pg/ml Total Protein 6.0 (6.0-8.3) gm/dl Albumin 3.1 L (3.4-5.0) gm/dl Procalcitonin 2.17 H (0-0.5) ng/ml Urine Color Urine Appearance (Clear) Urine pH (4.5-7.5) Ur Specific [place] (1.000-1.030) Urine Protein (Negative) Urine Glucose (UA) (Negative) Urine Ketones (Negative) Urine Blood (Negative) Urine Nitrite (Negative) Urine Bilirubin (Negative) Urine Urobilinogen (Negative) Ur Leukocyte Esterase (Negative) Urine WBC (Auto) (0-5) /hpf Urine RBC (Auto) (0-4) /hpf U Hyaline Cast (Auto) (0-5) /lpf U Epithel Cells (Auto) (0-5) /lpf Urine Bacteria (Auto) (Negative) Granular Casts (0) /lpf Carbamazepine (4-12) mcg/ml Adenovirus (PCR) (NotDetected) B. pertussis DNA (PCR) (NotDetected) B.parapertussis DNA PCR (NotDetected) C. pneumoniae DNA (PCR) (NotDetected) Coronavirus OC43 (PCR) (NotDetected) Coronavirus HKU1 (PCR) (NotDetected) Coronavirus 229E (PCR) (NotDetected) SARS-CoV-2 (PCR) (NotDetected) Coronavirus NL63 (PCR) (NotDetected) Human Metapneumovir PCR (NotDetected) Influenza Type A (PCR) (NotDetected) Influenza Type B (PCR) (NotDetected) M. pneumoniae (PCR) (NotDetected) Parainfluenza 1 (PCR) (NotDetected) Parainfluenza 2 (PCR) (NotDetected) Parainfluenza 3 (PCR) (NotDetected) Parainfluenza 4 (PCR) (NotDetected) RSV (PCR) (NotDetected) Entero/Rhino (PCR) (NotDetected) 06/04/22 06/04/22 06/04/22 Range/Units 12:49 13:41 15:40 WBC (4.8-10.8) K/ul RBC (4.20-5.40) M/uL Hgb (12.0-16.0) g/dl Hct (37.0-47.0) % MCV (80.0-100.0) fL MCH (25.0-34.0) pg MCHC (32.0-36.0) g/dL RDW Std Deviation (36.4-46.3) fL RDW Coeff of Claudio (11.5-14.5) % Plt Count (130-400) K/uL MPV (9.4-12.4) fL Immature Gran % (Auto) % Neut % (Auto) % Lymph % (Auto) % Perry % (Auto) % Eos % (Auto) % Baso % (Auto) % Neut # (Auto) (1.40-6.50) K/uL Lymph # (Auto) (1.2-3.4) K/uL Perry # (Auto) (0.11-0.59) K/uL Eos # (Auto) (0-0.50) K/uL Baso # (Auto) (0-0.2) K/uL Immature Gran # (Auto) (0.01-0.20) K/uL PT (9.0-12.0) Seconds INR (0.9-1.1) Sodium (136-145) mmol/L Potassium (3.5-5.1) mmol/L Chloride (98-107) mmol/L Carbon Dioxide (21-32) mmol/L Anion Gap (3-11) BUN (6-23) mg/dl Creatinine (0.6-1.2) mg/dl Est Cr Clr Drug Dosing Est GFR ( Amer) ml/min Est GFR (Non-Af Amer) ml/min BUN/Creatinine Ratio (10-20) Glucose (70-99(Fasting)) mg/dl Lactate 1.6 (0.4-2.0) mmol/L Calcium (8.6-10.3) mg/dl Phosphorus (2.5-4.9) mg/dl Magnesium (1.7-2.4) mg/dl Total Bilirubin (0.2-1.0) mg/dl Direct Bilirubin (0-0.2) mg/dl AST (13-39) U/L ALT (7-52) U/L Alkaline Phosphatase (34-104) U/L Total Creatine Kinase (26-192) U/L Troponin I High Sens (0-14) pg/ml Total Protein (6.0-8.3) gm/dl Albumin (3.4-5.0) gm/dl Procalcitonin (0-0.5) ng/ml Urine Color Dark Yellow Urine Appearance Turbid A (Clear) Urine pH 5.0 (4.5-7.5) Ur Specific [place] 1.034 H (1.000-1.030) Urine Protein 2+ H (Negative) Urine Glucose (UA) Negative (Negative) Urine Ketones Trace H (Negative) Urine Blood 3+ H (Negative) Urine Nitrite Positive A (Negative) Urine Bilirubin Negative (Negative) Urine Urobilinogen Negative (Negative) Ur Leukocyte Esterase Trace H (Negative) Urine WBC (Auto) 10-30 H (0-5) /hpf Urine RBC (Auto) 0-4 (0-4) /hpf U Hyaline Cast (Auto) 1-5 (0-5) /lpf U Epithel Cells (Auto) 10-20 H (0-5) /lpf Urine Bacteria (Auto) 4+ H (Negative) Granular Casts 1-5 H (0) /lpf Carbamazepine 7.5 (4-12) mcg/ml Adenovirus (PCR) (NotDetected) B. pertussis DNA (PCR) (NotDetected) B.parapertussis DNA PCR (NotDetected) C. pneumoniae DNA (PCR) (NotDetected) Coronavirus OC43 (PCR) (NotDetected) Coronavirus HKU1 (PCR) (NotDetected) Coronavirus 229E (PCR) (NotDetected) SARS-CoV-2 (PCR) (NotDetected) Coronavirus NL63 (PCR) (NotDetected) Human Metapneumovir PCR (NotDetected) Influenza Type A (PCR) (NotDetected) Influenza Type B (PCR) (NotDetected) M. pneumoniae (PCR) (NotDetected) Parainfluenza 1 (PCR) (NotDetected) Parainfluenza 2 (PCR) (NotDetected) Parainfluenza 3 (PCR) (NotDetected) Parainfluenza 4 (PCR) (NotDetected) RSV (PCR) (NotDetected) Entero/Rhino (PCR) (NotDetected) Administered Medications Acetaminophen (Acetaminophen 500 Mg Tab) 500 mg PO TID JOVANY Stop: 07/04/22 20:59 Last Admin: 06/04/22 22:13 Dose: 500 mg Documented By: BARBARA Carbamazepine (Carbamazepine 200 Mg Tabcr) 200 mg PO AMHS JOVANY Stop: 07/04/22 20:59 Last Admin: 06/04/22 22:12 Dose: 200 mg Documented By: BARBARA Cetirizine HCl (Cetirizine Hcl 10 Mg Tablet) 10 mg PO BID JOVANY Stop: 07/04/22 20:59 Last Admin: 06/04/22 22:13 Dose: 10 mg Documented By: BARBARA Enoxaparin Sodium (Enoxaparin Inj 40 Mg/0.4 Ml Syr) 40 mg SQ Q24H JOVANY Stop: 07/04/22 20:59 Last Admin: 06/04/22 22:19 Dose: 40 mg Documented By: BARBARA Gabapentin (Gabapentin 300 Mg Cap) 300 mg PO HS JOVANY Stop: 07/04/22 20:59 Last Admin: 06/04/22 22:18 Dose: 300 mg Documented By: BARBARA Lactated Ringer's (Lr) 1,000 mls @ 80 mls/hr IV .[id number] JOVANY Stop: 06/05/22 08:12 Last Admin: 06/04/22 22:24 Dose: 80 mls/hr Documented By: BARBARA Linaclotide (Linaclotide 72 Mcg Capsule) 72 mcg PO HS JOVANY Stop: 07/04/22 20:59 Last Admin: 06/04/22 22:19 Dose: 72 mcg Documented By: BARBARA Mirtazapine (Mirtazapine Tab 15 Mg Tab) 15 mg PO HS JOVANY Stop: 07/04/22 20:59 Last Admin: 06/04/22 22:22 Dose: 15 mg Documented By: BARBARA Potassium Chloride (Potassium Chloride Crtab 20 Meq Tabcr) 20 meq PO BID JOVANY Stop: 07/04/22 20:59 Last Admin: 06/04/22 22:20 Dose: 20 meq Documented By: BARBARA Rosuvastatin Calcium (Rosuvastatin Calcium 20 Mg Tab) 40 mg PO HS JOVANY Stop: 07/04/22 20:59 Last Admin: 06/04/22 22:17 Dose: 40 mg Documented By: BARBARA Senna/Docusate Sodium (Docusate Sodium/Senna 50/8.6mg Tab) 2 tab PO BID JOVANY Stop: 07/04/22 20:59 Last Admin: 06/04/22 22:09 Dose: Not Given Documented By: BARBARA Discontinued Medications Ceftriaxone Sodium (Rocephin) 2,000 mg in 70 mls @ 140 mls/hr IV NOW STA Stop: 06/04/22 15:02 Last Infusion: 06/04/22 15:31 Dose: 0 mls/hr Documented By: Admin: 06/04/22 14:45 Dose: 140 mls/hr Documented By: GORDON Sodium Chloride (Nss 1000ml) 1,000 mls @ 999 mls/hr IV .[id number] ONE Stop: 06/04/22 15:35 Last Infusion: 06/04/22 19:13 Dose: 0 mls/hr Documented By: Admin: 06/04/22 14:44 Dose: 999 mls/hr Documented By: LEVYK Ioversol (Optiray 350 100ml) 94 ml IV ONCE ONE Stop: 06/04/22 16:27 Last Admin: 06/04/22 16:26 Dose: 94 ml Documented By: CARA Potassium Chloride (Potassium Chloride Crtab 20 Meq Tabcr) 40 meq PO NOW STA Stop: 06/04/22 16:15 Last Admin: 06/04/22 17:13 Dose: 40 meq Documented By: BEZ Imaging Data Radiologist's Impression: Chest X-Ray 06/04/22 11:31 SINGLE VIEW CHEST CLINICAL HISTORY: Sepsis. FINDINGS: An AP, portable, upright chest radiograph is compared to study dated 12/19/2020. The examination is degraded by portable technique and patient rotation. The cardiomediastinal silhouette is unremarkable. Chronic interstitial thickening similar to previous. There is mild bibasilar scarring/atelectasis. The lungs and pleural spaces are otherwise clear. No pneumothorax is seen. The skeletal structures are osteopenic. The bony thorax is grossly intact. Degenerative change is seen throughout the spine. IMPRESSION: No active disease in the chest. ACT 112: Negative or not required by law. Electronically signed by: Aditya Ramirez M.D. 06/04/2022 12:30 PM Abdomen/Pelvis CT 06/04/22 14:[address] WITH IV CONTRAST CT DOSE: 1155.34 mGy.cm HISTORY: Acute urinary tract infection with generalized abdominal pain uti, confusion TECHNIQUE: Multiaxial CT images of the abdomen and pelvis were performed following the IV administration of 94 cc of Optiray, A dose lowering technique was utilized adhering to the principles of ALARA. COMPARISON STUDY: CT lumbar spine 10/24/2018 FINDINGS: Limited exam secondary to upper extremity positioning. Subcutaneous and deep tissue edema of the imaged right upper extremity with subcutaneous emphysema. Asymmetric right lateral chest and breast edema with mild skin thickening. Mild subsegmental bibasilar atelectasis. 8 mm subpleural solid nodule of the lateral segment right middle lobe on image 36. No pneumatosis or pneumoperitoneum. The spleen measures within the upper limits of normal at 12.6 cm. Unremarkable pancreas and right adrenal gland. 8 mm soft tissue attenuating indeterminate left adrenal gland nodule. The gallbladder and liver are within normal limits. Patency of the hepatic and portal veins. 4 mm nonobstructing calculus of the superior pole left kidney. No ureteral calculi or hydronephrosis. Unremarkable urinary bladder. Indeterminate hypodense lesion of the right adnexum measuring 4.5 cm. Atherosclerosis of the aorta. No lymphadenopathy. No bowel obstruction. Moderate to marked fecal retention of the rectum with circumferential rectal wall thickening and mild adjacent inflammatory stranding. Noninflamed appendix. No acute fracture. Avascular necrosis of the femoral heads without articular collapse. Chronic L5 pars defects with grade 1 anterolisthesis. L2 vertebral body hemangioma. Chronic L1 compression deformity with progressively worsened vertebral body height loss and 2 mm retropulsion. IMPRESSION: 1. 4 mm left renal calculus. No ureteral calculi or hydronephrosis. 2. No bowel obstruction or pneumoperitoneum. 3. Moderate rectal fecal retention with findings suggestive of stercoral proctitis. 4. 8 mm right middle lobe solid pulmonary nodule. 5. Indeterminate 4.5 cm right adnexal lesion should be further evaluated with a nonemergent follow-up pelvic ultrasound. 6. Asymmetric right lateral chest wall and breast subcutaneous edema is noted in addition to right upper extremity edema and subcutaneous emphysema. Correlate with clinical exam findings to exclude infection. ACT 112: Negative or not required by law. The above report was generated using voice recognition software. It may contain grammatical, syntax or spelling errors. Electronically signed by: Isaac Tubbs M.D. 06/04/2022 4:[address] 06/04/22 14:30 CT SCAN OF THE BRAIN WITHOUT IV CONTRAST CLINICAL HISTORY: Change in mental status. History of astrocytoma. COMPARISON STUDY: CT of the brain dated 12/20/2018. TECHNIQUE: Unenhanced axial CT scan of the brain is performed from the vertex to the skull base. A dose lowering technique was utilized adhering to the principles of ALARA. FINDINGS: Brain parenchyma: Right frontal encephalomalacia is unchanged and consistent with a site of previous surgery. Right basal ganglia calcifications are unchanged. There is age-related involutional change noting moderate subcortical and periventricular microangiopathic disease. There is no hemorrhage, mass effect, or evidence of acute territorial ischemia by CT criteria. A chronic lacunar infarct is noted in the left thalamus. Miller-white matter differentiation is preserved. No extra-axial fluid collection is seen. Ventricles, sulci, cisterns: Prominent secondary to involutional change. Intracranial vasculature: There is atherosclerotic calcification of the cavernous carotid and vertebral arteries. Calvarium: The skeletal structures are heterogeneously osteopenic. There is p ostsurgical change from right-sided craniotomy. No destructive calvarial lesion is identified. Sinuses and mastoids: There is mild mucosal thickening in the right maxillary a ntrum in the right anterior ethmoid sinuses. There is complete opacification of the right frontal sinus. The mastoid air cells are well pneumatized. Orbits: The bony orbits are grossly intact. IMPRESSION: Chronic and postsurgical changes as above with no hemorrhage, mass effect, or evidence of acute territorial ischemia by CT criteria. No significant change as compared to prior studies. ACT 112: Negative or not required by law. Electronically signed by: Aditya Ramirez M.D. 06/04/2022 4:37 PM Discharge Plan Visit Data Chief Complaint: Lethargic Stated Complaint: LETHARGIC, ABNORMAL LAB ED Provider: Carlin Hooker Discharge Problem: Hypernatremia, UTI (urinary tract infection), History of seizures, History of astrocytoma, Lethargy, Skin abnormality Patient Disposition: Admitted As Inpatient Discharge Instructions Interventions: ED Discharge Assessment Last Done: 06/04/22 19:43
[2022-06-04] MEDS ORDERED: POTASSIUM CHLORIDE CRTAB 20 MEQ TABCR PO STA (16:14)
[2022-06-04] MEDS ORDERED: OPTIRAY 350 100ml IV ONE (16:26)
--- NOTE | 2022-06-04 16:39 | CT Scan Report ---
CT SCAN OF THE BRAIN WITHOUT IV CONTRAST CLINICAL HISTORY: Change in mental status. History of astrocytoma. COMPARISON STUDY: CT of the brain dated 12/20/2018. TECHNIQUE: Unenhanced axial CT scan of the brain is performed from the vertex to the skull base. A do se lowering technique was utilized adhering to the principles of ALARA. FINDINGS: Brain parenchyma: Right frontal encephalomalacia is unchanged and consistent with a site of previous surgery. Right basal ganglia calcifications are unchanged. There is age-related involutional change n oting moderate subcortical and periventricular microangiopathic disease. There is no hemorrhage, mass effect, or evidence of acute territorial ischemia by CT criteria. A chronic lacunar infarct is noted in the left thalamus. Miller-white matter differentiation is preserved. No extra-axial fluid collectio n is seen. Ventricles, sulci, cisterns: Prominent secondary to involutional change. Intracranial vasculature: There is atherosclerotic calcification of the cavernous carotid and vertebr al arteries. Calvarium: The skeletal structures are heterogeneously osteopenic. There is postsurgical change from right-sided craniotomy. No destructive calvarial lesion is identified. Sinuses and mastoids: There is mild mucosal thickening in the right maxillary antrum in the right ant erior ethmoid sinuses. There is complete opacification of the right frontal sinus. The mastoid air ce lls are well pneumatized. Orbits: The bony orbits are grossly intact. IMPRESSION: Chronic and postsurgical changes as above with no hemorrhage, mass effect, or evidence of acute territorial ischemia by CT criteria. No significant change as compared to prior studies. ACT 112: Negative or not required by law. Electronically signed by: Aditya Ramirez M.D. 06/04/2022 4:37 PM
--- NOTE | 2022-06-04 16:52 | CT Scan Report ---
ABDOMEN AND PELVIS CT WITH IV CONTRAST CT DOSE: 1155.34 mGy.cm HISTORY: Acute urinary tract infection with generalized abdominal pain uti, confusion TECHNIQUE: Multiaxial CT images of the abdomen and pelvis were performed following the IV administrat ion of 94 cc of Optiray, A dose lowering technique was utilized adhering to the principles of ALARA. COMPARISON STUDY: CT lumbar spine 10/24/2018 FINDINGS: Limited exam secondary to upper extremity positioning. Subcutaneous and deep tissue edema o f the imaged right upper extremity with subcutaneous emphysema. Asymmetric right lateral chest and br east edema with mild skin thickening. Mild subsegmental bibasilar atelectasis. 8 mm subpleural solid nodule of the lateral segment right middle lobe on image 36. No pneumatosis or pneumoperitoneum. The spleen measures within the upper limits of normal at 12.6 cm. Unremarkable pancreas and right adr enal gland. 8 mm soft tissue attenuating indeterminate left adrenal gland nodule. The gallbladder and liver are within normal limits. Patency of the hepatic and portal veins. 4 mm nonobstructing calculu s of the superior pole left kidney. No ureteral calculi or hydronephrosis. Unremarkable urinary bladd er. Indeterminate hypodense lesion of the right adnexum measuring 4.5 cm. Atherosclerosis of the aort a. No lymphadenopathy. No bowel obstruction. Moderate to marked fecal retention of the rectum with circumferential rectal wa ll thickening and mild adjacent inflammatory stranding. Noninflamed appendix. No acute fracture. Avas cular necrosis of the femoral heads without articular collapse. Chronic L5 pars defects with grade 1 anterolisthesis. L2 vertebral body hemangioma. Chronic L1 compression deformity with progressively wo rsened vertebral body height loss and 2 mm retropulsion. IMPRESSION: 1. 4 mm left renal calculus. No ureteral calculi or hydronephrosis. 2. No bowel obstruction or pneumoperitoneum. 3. Moderate rectal fecal retention with findings suggestive of stercoral proctitis. 4. 8 mm right middle lobe solid pulmonary nodule. 5. Indeterminate 4.5 cm right adnexal lesion should be further evaluated with a nonemergent follow-up pelvic ultrasound. 6. Asymmetric right lateral chest wall and breast subcutaneous edema is noted in addition to right up per extremity edema and subcutaneous emphysema. Correlate with clinical exam findings to exclude infe ction. ACT 112: Negative or not required by law. The above report was generated using voice recognition software. It may contain grammatical, syntax o r spelling errors. Electronically signed by: Isaac Tubbs M.D. 06/04/2022 4:51 PM
[2022-06-04 17:36] LABS: Anion Gap 5 (3-11); BUN Creatinine Ratio 34.5 (10-20); Blood Urea Nitrogen 19 mg/dl (6-23); Calcium 7.3 mg/dl (8.6-10.3); Carbon Dioxide 22 mmol/L (21-32); Chloride 122 mmol/L (98-107); Est GFR (African American) 118.2 ml/min; Est GFR (Non-African American) 101.9 ml/min; Glucose 85 mg/dl (70-99(Fasting)); Potassium 3.6 mmol/L (3.5-5.1); Sodium 149 mmol/L (136-145)
[2022-06-04] MEDS ORDERED: LACTATED RINGER'S 1,000 ML IV SCH (19:43)
[2022-06-04] MEDS ORDERED: POLYETHYLENE (MIRALAX) 17 GM PACK PO PRN (19:43)
[2022-06-04] MEDS ORDERED: ONDANSETRON INJ 2 MG/ML 2 ML VIAL IV PRN (19:43)
[2022-06-04] MEDS: DOCUSATE SODIUM/SENNA 50/8.6MG TAB PO SCH (22:09)
[2022-06-04] MEDS: ACETAMINOPHEN 500 MG TAB PO SCH (22:13)
[2022-06-04] MEDS: CETIRIZINE HCL 10 MG TABLET PO SCH (22:13)
[2022-06-04] MEDS: ROSUVASTATIN CALCIUM 20 MG TAB PO SCH (22:17)
[2022-06-04] MEDS: GABAPENTIN 300 MG CAP PO SCH (22:18)
[2022-06-04] MEDS: linaCLOtide 72 MCG CAPSULE PO SCH (22:19)
[2022-06-04] MEDS: ENOXAPARIN INJ 40 MG/0.4 ML SYR SQ SCH (22:19)
[2022-06-04] MEDS: POTASSIUM CHLORIDE CRTAB 20 MEQ TABCR PO SCH (22:20)
[2022-06-04] MEDS: MIRTAZAPINE TAB 15 MG TAB PO SCH (22:22)
[2022-06-05] MEDS: PANTOprazole 40 MG TAB PO SCH (06:04)
[2022-06-05] MEDS: LEVOTHYROXINE SODIUM 50 MCG TABLET PO SCH (06:04)
[2022-06-05 07:25] LABS: Hematocrit (blood only) 42.1 % (37.0-47.0); Hemoglobin 13.4 g/dl (12.0-16.0); Mean Corpuscular Hemoglobin 32.3 pg (25.0-34.0); Mean Corpuscular Hgb Conc 31.8 g/dL (32.0-36.0); Mean Corpuscular Volume 101.4 fL (80.0-100.0); Mean Platelet Volume 10.4 fL (9.4-12.4); Platelet Count 166 K/uL (130-400); RDW Coefficient of Variation 13.1 % (11.5-14.5); RDW Standard Deviation 49.4 fL (36.4-46.3); Red Blood Count 4.15 M/uL (4.20-5.40)
[2022-06-05 07:50] LABS: Albumin Globulin Ratio 1.1 (0.9-2); Albumin Level 2.8 gm/dl (3.4-5.0); BUN Creatinine Ratio 27.1 (10-20); Bilirubin,Total 0.3 mg/dl (0.2-1.0); Calcium 8.2 mg/dl (8.6-10.3); Creatinine Clr Calc Pharmacy 100.3 ml/min; Est GFR (African American) 115.5 ml/min; Est GFR (Non-African American) 99.6 ml/min; Globulin 2.5 gm/dl (2.5-4.0); Potassium 3.8 mmol/L (3.5-5.1); Total Protein 5.3 gm/dl (6.0-8.3)
[2022-06-05] MEDS ORDERED: modafiniL 100 MG TAB PO SCH (09:00)
[2022-06-05] MEDS: ACETAMINOPHEN 500 MG TAB PO SCH ×3 (10:42→21:32)
[2022-06-05] MEDS: CYANOCOBALAMIN (B-12) 500 MCG TABLET PO SCH (10:43)
[2022-06-05] MEDS: CHOLECALCIFEROL 1,000 UNITS 25 MCG TAB PO SCH (10:43)
[2022-06-05] MEDS: ASPIRIN 81 MG ECTAB PO SCH (10:43)
[2022-06-05] MEDS: CETIRIZINE HCL 10 MG TABLET PO SCH ×2 (10:43→21:34)
[2022-06-05] MEDS: DOCUSATE SODIUM/SENNA 50/8.6MG TAB PO SCH ×2 (10:44→21:34)
[2022-06-05] MEDS: modafiniL 100 MG TAB PO SCH (10:44)
[2022-06-05] MEDS: POTASSIUM CHLORIDE CRTAB 20 MEQ TABCR PO SCH ×2 (10:44→21:32)
[2022-06-05] MEDS: DEXTROSE 5% 1,000 ML IV SCH ×3 (11:49→23:35)
[2022-06-05] MEDS: cefTRIAXone SODIUM 2,000 MG in DEXTROSE 5% 50 ML IV SCH (14:48)
[2022-06-05] MEDS ORDERED: MAGNESIUM HYDROXIDE SUSP 30 ML UDC PO ONE (15:09)
--- NOTE | 2022-06-05 15:16 | Hospitalist Progress Note ---
Date of Service June 05, 2022 Assessment & Plan (1) Chronic hypernatremia: Plan: Patient is 61-year-old female with PMH astrocytoma s/p craniotomy, radiation, & chemo, subdural hygroma, CVA, chronic left hemiparesis, HTN, HLD, seizure disorder, GERD, hypothyroidism, and others listed below presented to ER for increased lethargy and noted hypernatremia outpatient Patient presents with increasing lethargy Outside labs significant for persistent hyper natremia Reported to have very low oral intake Patient is on thickened liquid diet at rehab as per her daughter. Presenting sodium of 151. Morning labs reviewed; sodium continues to be 151 We will start D5 at 100 cc/h; monitor urine output and BMP Will get swallow evaluation to see if patient can be placed on thin liquids Obtain urine electrolytes, urine osmolarity (2) UTI (urinary tract infection): Plan: Reported dysuria UA: 3+ blood, + nitrate, trace leuk esterase, 4+ bacteria Lactate: 2.3 --> 1.6. Procalcitonin: 2.17. No leukocytosis Urine culture shows gram-negative bacilli Currently on ceftriaxone; continue same. (3) Lethargy: Plan: Patient with ongoing increased lethargy reported for months at [facility] with poor oral intake Wheelchair bound at baseline Increased lethargy likely secondary to underlying UTI, hypernatremia, hypovolemia CT Head: Chronic and postsurgical changes as above with no hemorrhage, mass effect, or evidence of acute territorial ischemia by CT criteria. No significant change as compared to prior studies. (4) Hypokalemia: Plan: Repleted Morning labs reviewed; potassium improved (5) Skin abnormality: Plan: RUE with intact and one deroofed blister. This was site of recent outpatient IV. Believe this is secondary to adhesive. No surrounding erythema or signs of cellulitis CT Abd/pelvis: Asymmetric right lateral chest wall and breast subcutaneous edema is noted in addition to right upper extremity edema and subcutaneous emphysema. This is likely secondary to recent IV. Patient is known difficult stick. No current signs of infection (6) Essential hypertension: Plan: Continue amlodipine (7) History of astrocytoma: (8) CVA (cerebral vascular accident): (9) Left hemiparesis: Plan: History astrocytoma s/p craniotomy, chemo, radiation Chronic left hemiparesis Uses wheelchair about baseline Continue aspirin, rosuvastatin (10) History of seizures: Plan: Continue carbamazepine (11) Hypothyroidism: Plan: TSH in am Continue levothyroxine DVT Prophylaxis Lovenox SQ Full Code as per discussion with pt Follows with Dr Haile for routine care Discussed over the phone with her daughter regarding patient's condition. Answered questions/queries. Admission and Anticipated Discharge Date Admission Date: June 04, 2022 Subjective Patient seen and examined at bedside. She is awake; is able to answer simple commands. She states that she is thirsty and wants to drink water. She is oriented to self and place. Review of Systems Review of Systems: All systems reviewed & are unremarkable except as noted in Subjective Physical Exam Physical Exam: Constitutional: Awake, alert, oriented to self and place. Head: Scar marcello from previous surgery present Respiratory: normal respiratory effort, lungs clear to auscultation, no wheeze, rales, rhonchi. Normal insp/exp effort, no accessory muscle use Cardiovascular: RRR, no murmur, no edema Vessels: no JVD or carotid bruit Chest: normal inspection of chest Abdomen: normal bowel sounds, soft, nontender, no hepatosplenomegaly Musculoskeletal: no cyanosis or clubbing, extremities motor strength 5/5 Skin: no rashes, warm and dry normal turgor Neurologic: Alert, oriented to self and place. Left-sided hemiparesis. Able to follow simple commands. Psychiatric: A+Ox3, euthymic affect Lymphatic: no cervical or axillary lymphadenopathy : deferred Results & Data Results & Data Vital Signs (Past 12 Hours) Vital Signs Pulse Resp BP Pulse Ox O2 Del Method 06/05/22 14:30 69 18 111/76 97 Room Air 06/05/22 10:37 66 16 107/75 98 Room Air 06/05/22 06:19 75 18 92/64 L 96 Room Air Laboratory Results Laboratory Results WBC 5.60 K/ul (4.8-10.8) 06/05/22 06:38 RBC 4.15 M/uL (4.20-5.40) L 06/05/22 06:38 Hgb 13.4 g/dl (12.0-16.0) 06/05/22 06:38 Hct 42.1 % (37.0-47.0) 06/05/22 06:38 MCV 101.4 fL (80.0-100.0) H 06/05/22 06:38 MCH 32.3 pg (25.0-34.0) 06/05/22 06:38 MCHC 31.8 g/dL (32.0-36.0) L 06/05/22 06:38 RDW Std Deviation 49.4 fL (36.4-46.3) H 06/05/22 06:38 RDW Coeff of Claudio 13.1 % (11.5-14.5) 06/05/22 06:38 Plt Count 166 K/uL (130-400) 06/05/22 06:38 MPV 10.4 fL (9.4-12.4) 06/05/22 06:38 Immature Gran % (Auto) 0.3 % 06/04/22 12:49 Neut % (Auto) 56.4 % 06/04/22 12:49 Lymph % (Auto) 38.6 % 06/04/22 12:49 [facility] % (Auto) 4.6 % 06/04/22 12:49 Eos % (Auto) 0.0 % 06/04/22 12:49 Baso % (Auto) 0.1 % 06/04/22 12:49 Neut # (Auto) 4.04 K/uL (1.40-6.50) 06/04/22 12:49 Lymph # (Auto) 2.77 K/uL (1.2-3.4) 06/04/22 12:49 [facility] # (Auto) 0.33 K/uL (0.11-0.59) 06/04/22 12:49 Eos # (Auto) 0.00 K/uL (0-0.50) 06/04/22 12:49 Baso # (Auto) 0.01 K/uL (0-0.2) 06/04/22 12:49 Immature Gran # (Auto) 0.02 K/uL (0.01-0.20) 06/04/22 12:49 PT 11.4 Seconds (9.0-12.0) 06/04/22 12:49 INR 1.1 (0.9-1.1) 06/04/22 12:49 Sodium 151 mmol/L (136-145) H 06/05/22 06:38 Potassium 3.8 mmol/L (3.5-5.1) 06/05/22 06:38 Chloride 121 mmol/L (98-107) H 06/05/22 06:38 Carbon Dioxide 26 mmol/L (21-32) 06/05/22 06:38 Anion Gap 4 (3-11) 06/05/22 06:38 BUN 16 mg/dl (6-23) 06/05/22 06:38 Creatinine 0.59 mg/dl (0.6-1.2) L 06/05/22 06:38 Est Cr Clr Drug Dosing 100.3 ml/min 06/05/22 06:38 Est GFR ( Amer) 115.5 ml/min 06/05/22 06:38 Est GFR (Non-Af Amer) 99.6 ml/min 06/05/22 06:38 BUN/Creatinine Ratio 27.1 (10-20) H 06/05/22 06:38 Glucose 67 mg/dl (70-99(Fasting)) L 06/05/22 06:38 Lactate 1.6 mmol/L (0.4-2.0) 06/04/22 15:40 Calcium 8.2 mg/dl (8.6-10.3) L 06/05/22 06:38 Phosphorus 2.6 mg/dl (2.5-4.9) 06/04/22 12:49 Magnesium 2.0 mg/dl (1.7-2.4) 06/05/22 06:38 Total Bilirubin 0.3 mg/dl (0.2-1.0) 06/05/22 06:38 Direct Bilirubin 0.1 mg/dl (0-0.2) 06/04/22 12:49 AST 25 U/L (13-39) 06/05/22 06:38 ALT 15 U/L (7-52) 06/05/22 06:38 Alkaline Phosphatase 110 U/L (34-104) H 06/05/22 06:38 Total Creatine Kinase 162 U/L (26-192) 06/04/22 12:49 Troponin I High Sens 8.4 pg/ml (0-14) 06/04/22 12:49 Total Protein 5.3 gm/dl (6.0-8.3) L 06/05/22 06:38 Albumin 2.8 gm/dl (3.4-5.0) L 06/05/22 06:38 Globulin 2.5 gm/dl (2.5-4.0) 06/05/22 06:38 Albumin/Globulin Ratio 1.1 (0.9-2) 06/05/22 06:38 Procalcitonin 2.17 ng/ml (0-0.5) H 06/04/22 12:49 TSH 0.157 uIu/ml (0.300-4.500) L 06/05/22 06:38 Urine Color Dark Yellow 06/04/22 13:41 Urine Appearance Turbid (Clear) A 06/04/22 13:41 Urine pH 5.0 (4.5-7.5) 06/04/22 13:41 Ur Specific [place] 1.034 (1.000-1.030) H 06/04/22 13:41 Urine Protein 2+ (Negative) H 06/04/22 13:41 Urine Glucose (UA) Negative (Negative) 06/04/22 13:41 Urine Ketones Trace (Negative) H 06/04/22 13:41 Urine Blood 3+ (Negative) H 06/04/22 13:41 Urine Nitrite Positive (Negative) A 06/04/22 13:41 Urine Bilirubin Negative (Negative) 06/04/22 13:41 Urine Urobilinogen Negative (Negative) 06/04/22 13:41 Ur Leukocyte Esterase Trace (Negative) H 06/04/22 13:41 Urine WBC (Auto) 10-30 /hpf (0-5) H 06/04/22 13:41 Urine RBC (Auto) 0-4 /hpf (0-4) 06/04/22 13:41 U Hyaline Cast (Auto) 1-5 /lpf (0-5) 06/04/22 13:41 U Epithel Cells (Auto) 10-20 /lpf (0-5) H 06/04/22 13:41 Urine Bacteria (Auto) 4+ (Negative) H 06/04/22 13:41 Granular Casts 1-5 /lpf (0) H 06/04/22 13:41 Nasal Screen MRSA (PCR) Positive (Negative) A 06/05/22 07:27 Carbamazepine 7.5 mcg/ml (4-12) 06/04/22 12:49 Adenovirus (PCR) Not Detected (NotDetected) 06/04/22 12:25 B. pertussis DNA (PCR) Not Detected (NotDetected) 06/04/22 12:25 B.parapertussis DNA PCR Not Detected (NotDetected) 06/04/22 12:25 C. pneumoniae DNA (PCR) Not Detected (NotDetected) 06/04/22 12:25 Coronavirus OC43 (PCR) Not Detected (NotDetected) 06/04/22 12:25 Coronavirus HKU1 (PCR) Not Detected (NotDetected) 06/04/22 12:25 Coronavirus 229E (PCR) Not Detected (NotDetected) 06/04/22 12:25 SARS-CoV-2 (PCR) Not Detected (NotDetected) 06/04/22 12:25 Coronavirus NL63 (PCR) Not Detected (NotDetected) 06/04/22 12:25 Human Metapneumovir PCR Not Detected (NotDetected) 06/04/22 12:25 Influenza Type A (PCR) Not Detected (NotDetected) 06/04/22 12:25 Influenza Type B (PCR) Not Detected (NotDetected) 06/04/22 12:25 M. pneumoniae (PCR) Not Detected (NotDetected) 06/04/22 12:25 Parainfluenza 1 (PCR) Not Detected (NotDetected) 06/04/22 12:25 Parainfluenza 2 (PCR) Not Detected (NotDetected) 06/04/22 12:25 Parainfluenza 3 (PCR) Not Detected (NotDetected) 06/04/22 12:25 Parainfluenza 4 (PCR) Not Detected (NotDetected) 06/04/22 12:25 RSV (PCR) Not Detected (NotDetected) 06/04/22 12:25 Entero/Rhino (PCR) Not Detected (NotDetected) 06/04/22 12:25 Impressions Chest X-Ray 06/04/22 11:31 SINGLE VIEW CHEST CLINICAL HISTORY: Sepsis. FINDINGS: An AP, portable, upright chest radiograph is compared to study dated 12/19/2020. The examination is degraded by portable technique and patient rotation. The cardiomediastinal silhouette is unremarkable. Chronic interstitial thickening similar to previous. There is mild bibasilar scarring/atelectasis. The lungs and pleural spaces are otherwise clear. No pneumothorax is seen. The skeletal structures are osteopenic. The bony thorax is grossly intact. Degenerative change is seen throughout the spine. IMPRESSION: No active disease in the chest. ACT 112: Negative or not required by law. Electronically signed by: Aditya Ramirez M.D. 06/04/2022 12:30 PM Abdomen/Pelvis CT 06/04/22 14:[address] WITH IV CONTRAST CT DOSE: 1155.34 mGy.cm HISTORY: Acute urinary tract infection with generalized abdominal pain uti, confusion TECHNIQUE: Multiaxial CT images of the abdomen and pelvis were performed following the IV administration of 94 cc of Optiray, A dose lowering technique was utilized adhering to the principles of ALARA. COMPARISON STUDY: CT lumbar spine 10/24/2018 FINDINGS: Limited exam secondary to upper extremity positioning. Subcutaneous and deep tissue edema of the imaged right upper extremity with subcutaneous emphysema. Asymmetric right lateral chest and breast edema with mild skin thickening. Mild subsegmental bibasilar atelectasis. 8 mm subpleural solid nodule of the lateral segment right middle lobe on image 36. No pneumatosis or pneumoperitoneum. The spleen measures within the upper limits of normal at 12.6 cm. Unremarkable pancreas and right adrenal gland. 8 mm soft tissue attenuating indeterminate left adrenal gland nodule. The gallbladder and liver are within normal limits. Patency of the hepatic and portal veins. 4 mm nonobstructing calculus of the superior pole left kidney. No ureteral calculi or hydronephrosis. Unremarkable urinary bladder. Indeterminate hypodense lesion of the right adnexum measuring 4.5 cm. Atherosclerosis of the aorta. No lymphadenopathy. No bowel obstruction. Moderate to marked fecal retention of the rectum with circumferential rectal wall thickening and mild adjacent inflammatory stranding. Noninflamed appendix. No acute fracture. Avascular necrosis of the femoral heads without articular collapse. Chronic L5 pars defects with grade 1 anterolisthesis. L2 vertebral body hemangioma. Chronic L1 compression deformity with progressively worsened vertebral body height loss and 2 mm retropulsion. IMPRESSION: 1. 4 mm left renal calculus. No ureteral calculi or hydronephrosis. 2. No bowel obstruction or pneumoperitoneum. 3. Moderate rectal fecal retention with findings suggestive of stercoral proctitis. 4. 8 mm right middle lobe solid pulmonary nodule. 5. Indeterminate 4.5 cm right adnexal lesion should be further evaluated with a nonemergent follow-up pelvic ultrasound. 6. Asymmetric right lateral chest wall and breast subcutaneous edema is noted in addition to right upper extremity edema and subcutaneous emphysema. Correlate with clinical exam findings to exclude infection. ACT 112: Negative or not required by law. The above report was generated using voice recognition software. It may contain grammatical, syntax or spelling errors. Electronically signed by: Isaac Tubbs M.D. 06/04/2022 4:[address] 06/04/22 14:30 CT SCAN OF THE BRAIN WITHOUT IV CONTRAST CLINICAL HISTORY: Change in mental status. History of astrocytoma. COMPARISON STUDY: CT of the brain dated 12/20/2018. TECHNIQUE: Unenhanced axial CT scan of the brain is performed from the vertex to the skull base. A dose lowering technique was utilized adhering to the principles of ALARA. FINDINGS: Brain parenchyma: Right frontal encephalomalacia is unchanged and consistent with a site of previous surgery. Right basal ganglia calcifications are unchanged. There is age-related involutional change noting moderate subcortical and periventricular microangiopathic disease. There is no hemorrhage, mass effect, or evidence of acute territorial ischemia by CT criteria. A chronic lacunar infarct is noted in the left thalamus. Miller-white matter differentiation is preserved. No extra-axial fluid collection is seen. Ventricles, sulci, cisterns: Prominent secondary to involutional change. Intracranial vasculature: There is atherosclerotic calcification of the cavernous carotid and vertebral arteries. Calvarium: The skeletal structures are heterogeneously osteopenic. There is postsurgical change from right-sided craniotomy. No destructive calvarial lesion is identified. Sinuses and mastoids: There is mild mucosal thickening in the right maxillary antrum in the right anterior ethmoid sinuses. There is complete opacification of the right frontal sinus. The mastoid air cells are well pneumatized. Orbits: The bony orbits are grossly intact. IMPRESSION: Chronic and postsurgical changes as above with no hemorrhage, mass effect, or evidence of acute territorial ischemia by CT criteria. No significant change as compared to prior studies. ACT 112: Negative or not required by law. Electronically signed by: Aditya Ramirez M.D. 06/04/2022 4:37 PM (8) CVA (cerebral vascular accident) CVA mechanism: unspecified Qualified Code(s): I63.9 - Cerebral infarction, unspecified (11) Hypothyroidism Hypothyroidism type: acquired Qualified Code(s): E03.9 - Hypothyroidism, unspecified
[2022-06-05 16:17] LABS: BUN Creatinine Ratio 26.2 (10-20); Est GFR (African American) 114.2 ml/min; Est GFR (Non-African American) 98.5 ml/min
[2022-06-05] MEDS: POLYETHYLENE (MIRALAX) 17 GM PACK PO SCH (16:44)
[2022-06-05] MEDS: ROSUVASTATIN CALCIUM 20 MG TAB PO SCH (21:32)
[2022-06-05] MEDS: GABAPENTIN 300 MG CAP PO SCH (21:33)
[2022-06-05] MEDS: linaCLOtide 72 MCG CAPSULE PO SCH (21:34)
[2022-06-05] MEDS: MIRTAZAPINE TAB 15 MG TAB PO SCH (21:34)
[2022-06-05] MEDS: ENOXAPARIN INJ 40 MG/0.4 ML SYR SQ SCH (21:35)
[2022-06-05] MEDS: MUPIROCIN 2% OINT 22 GM TUBE EXT SCH (21:36)
[2022-06-06] MEDS: LEVOTHYROXINE SODIUM 50 MCG TABLET PO SCH (05:54)
[2022-06-06] MEDS: PANTOprazole 40 MG TAB PO SCH (05:54)
[2022-06-06] MEDS: ACETAMINOPHEN 500 MG TAB PO SCH ×3 (08:33→21:48)
[2022-06-06] MEDS: CETIRIZINE HCL 10 MG TABLET PO SCH ×2 (08:33→21:44)
[2022-06-06] MEDS: ASPIRIN 81 MG ECTAB PO SCH (08:34)
[2022-06-06] MEDS: DOCUSATE SODIUM/SENNA 50/8.6MG TAB PO SCH ×2 (08:34→21:48)
[2022-06-06] MEDS: CYANOCOBALAMIN (B-12) 500 MCG TABLET PO SCH (08:34)
[2022-06-06] MEDS: CHOLECALCIFEROL 1,000 UNITS 25 MCG TAB PO SCH (08:34)
[2022-06-06] MEDS: POLYETHYLENE (MIRALAX) 17 GM PACK PO SCH (08:35)
[2022-06-06] MEDS: MUPIROCIN 2% OINT 22 GM TUBE EXT SCH ×2 (08:35→21:50)
[2022-06-06] MEDS: POTASSIUM CHLORIDE CRTAB 20 MEQ TABCR PO SCH ×2 (08:35→21:55)
[2022-06-06] MEDS: modafiniL 100 MG TAB PO SCH (08:38)
[2022-06-06 09:21] LABS: Creatinine Urine Random 27.8 mg/dl
--- NOTE | 2022-06-06 11:01 | Hospitalist Progress Note ---
Date of Service June 06, 2022 Assessment & Plan (1) Chronic hypernatremia: Plan: Patient is 61-year-old female with PMH astrocytoma s/p craniotomy, radiation, & chemo, subdural hygroma, CVA, chronic left hemiparesis, HTN, HLD, seizure disorder, GERD, hypothyroidism, and others listed below presented to ER for increased lethargy and noted hypernatremia outpatient Patient presents with increasing lethargy Outside labs significant for persistent hyper natremia Reported to have very low oral intake Patient is on thickened liquid diet at rehab as per her daughter. Presenting sodium of 151. Labs reviewed; sodium slightly improved to 147. Will obtain repeat labs today. Continue on D5 at 100 cc/h Urine osmolarity and urine electrolytes personally reviewed; low chance of diabetes insipidus Awaiting swallow evaluation to see if patient can be placed on thin liquids (2) UTI (urinary tract infection): Plan: Reported dysuria UA: 3+ blood, + nitrate, trace leuk esterase, 4+ bacteria Lactate: 2.3 --> 1.6. Procalcitonin: 2.17. No leukocytosis Urine culture shows E. coli which is pansensitive Continue on ceftriaxone; will complete 5-day course. (3) Lethargy: Plan: Patient with ongoing increased lethargy reported for months at [facility] with poor oral intake Wheelchair bound at baseline Increased lethargy likely secondary to underlying UTI, hypernatremia, hypovolemia CT Head: Chronic and postsurgical changes as above with no hemorrhage, mass effect, or evidence of acute territorial ischemia by CT criteria. No significant change as compared to prior studies. (4) Hypokalemia: Plan: Repleted Morning labs ordered; will follow-up. (5) Skin abnormality: Plan: RUE with intact and one deroofed blister. This was site of recent outpatient IV. Believe this is secondary to adhesive. No surrounding erythema or signs of cellulitis CT Abd/pelvis: Asymmetric right lateral chest wall and breast subcutaneous edema is noted in addition to right upper extremity edema and subcutaneous emphysema. This is likely secondary to recent IV. Patient is known difficult stick. No current signs of infection (6) Essential hypertension: Plan: Continue amlodipine (7) History of astrocytoma: (8) CVA (cerebral vascular accident): (9) Left hemiparesis: Plan: History astrocytoma s/p craniotomy, chemo, radiation Chronic left hemiparesis Uses wheelchair about baseline Continue aspirin, rosuvastatin (10) History of seizures: Plan: Continue carbamazepine (11) Hypothyroidism: Plan: TSH slightly decreased; will need repeat TSH at discharge after resolution of medical illness. Continue levothyroxine DVT Prophylaxis Lovenox SQ Full Code as per discussion with pt Follows with Dr Haile for routine care Admission and Anticipated Discharge Date Admission Date: June 04, 2022 Subjective Patient seen and examined at bedside. She is comfortably lying on the bed; not in any distress. Afebrile; vital stable. Review of Systems Review of Systems: All systems reviewed & are unremarkable except as noted in Subjective Physical Exam Physical Exam: Constitutional: Awake, alert, oriented to self and place. Head: Scar marcello from previous surgery present Respiratory: normal respiratory effort, lungs clear to auscultation, no wheeze, rales, rhonchi. Normal insp/exp effort, no accessory muscle use Cardiovascular: RRR, no murmur, no edema Vessels: no JVD or carotid bruit Chest: normal inspection of chest Abdomen: normal bowel sounds, soft, nontender, no hepatosplenomegaly Musculoskeletal: no cyanosis or clubbing, extremities motor strength 5/5 Skin: no rashes, warm and dry normal turgor Neurologic: Alert, oriented to self and place. Left-sided hemiparesis. Able to follow simple commands. Psychiatric: A+Ox3, euthymic affect Lymphatic: no cervical or axillary lymphadenopathy : deferred Results & Data Results & Data Vital Signs (Past 12 Hours) Vital Signs Temp Pulse Pulse Resp BP BP Pulse Ox 06/06/22 07:43 36.4 C L 56 L 16 105/72 98 06/06/22 07:23 56 L 06/06/22 03:08 36.6 C 68 18 107/82 98 06/05/22 23:36 36.7 C 74 20 123/92 96 O2 Del Method 06/06/22 07:43 Room Air 06/06/22 07:23 06/06/22 03:08 Room Air 06/05/22 23:36 Room Air Laboratory Results Laboratory Results WBC 5.60 K/ul (4.8-10.8) 06/05/22 06:38 RBC 4.15 M/uL (4.20-5.40) L 06/05/22 06:38 Hgb 13.4 g/dl (12.0-16.0) 06/05/22 06:38 Hct 42.1 % (37.0-47.0) 06/05/22 06:38 MCV 101.4 fL (80.0-100.0) H 06/05/22 06:38 MCH 32.3 pg (25.0-34.0) 06/05/22 06:38 MCHC 31.8 g/dL (32.0-36.0) L 06/05/22 06:38 RDW Std Deviation 49.4 fL (36.4-46.3) H 06/05/22 06:38 RDW Coeff of Claudio 13.1 % (11.5-14.5) 06/05/22 06:38 Plt Count 166 K/uL (130-400) 06/05/22 06:38 MPV 10.4 fL (9.4-12.4) 06/05/22 06:38 Immature Gran % (Auto) 0.3 % 06/04/22 12:49 Neut % (Auto) 56.4 % 06/04/22 12:49 Lymph % (Auto) 38.6 % 06/04/22 12:49 [place] % (Auto) 4.6 % 06/04/22 12:49 Eos % (Auto) 0.0 % 06/04/22 12:49 Baso % (Auto) 0.1 % 06/04/22 12:49 Neut # (Auto) 4.04 K/uL (1.40-6.50) 06/04/22 12:49 Lymph # (Auto) 2.77 K/uL (1.2-3.4) 06/04/22 12:49 [place] # (Auto) 0.33 K/uL (0.11-0.59) 06/04/22 12:49 Eos # (Auto) 0.00 K/uL (0-0.50) 06/04/22 12:49 Baso # (Auto) 0.01 K/uL (0-0.2) 06/04/22 12:49 Immature Gran # (Auto) 0.02 K/uL (0.01-0.20) 06/04/22 12:49 PT 11.4 Seconds (9.0-12.0) 06/04/22 12:49 INR 1.1 (0.9-1.1) 06/04/22 12:49 Sodium 147 mmol/L (136-145) H 06/05/22 15:15 Potassium 4.0 mmol/L (3.5-5.1) 06/05/22 15:15 Chloride 118 mmol/L (98-107) H 06/05/22 15:15 Carbon Dioxide 26 mmol/L (21-32) 06/05/22 15:15 Anion Gap 3 (3-11) 06/05/22 15:15 BUN 16 mg/dl (6-23) 06/05/22 15:15 Creatinine 0.61 mg/dl (0.6-1.2) 06/05/22 15:15 Est Cr Clr Drug Dosing 97.0 ml/min 06/05/22 15:15 Est GFR ( Amer) 114.2 ml/min 06/05/22 15:15 Est GFR (Non-Af Amer) 98.5 ml/min 06/05/22 15:15 BUN/Creatinine Ratio 26.2 (10-20) H 06/05/22 15:15 Glucose 102 mg/dl (70-99(Fasting)) H 06/05/22 15:15 Lactate 1.6 mmol/L (0.4-2.0) 06/04/22 15:40 Calcium 8.0 mg/dl (8.6-10.3) L 06/05/22 15:15 Phosphorus 2.6 mg/dl (2.5-4.9) 06/04/22 12:49 Magnesium 2.0 mg/dl (1.7-2.4) 06/05/22 06:38 Total Bilirubin 0.3 mg/dl (0.2-1.0) 06/05/22 06:38 Direct Bilirubin 0.1 mg/dl (0-0.2) 06/04/22 12:49 AST 25 U/L (13-39) 06/05/22 06:38 ALT 15 U/L (7-52) 06/05/22 06:38 Alkaline Phosphatase 110 U/L (34-104) H 06/05/22 06:38 Total Creatine Kinase 162 U/L (26-192) 06/04/22 12:49 Troponin I High Sens 8.4 pg/ml (0-14) 06/04/22 12:49 Total Protein 5.3 gm/dl (6.0-8.3) L 06/05/22 06:38 Albumin 2.8 gm/dl (3.4-5.0) L 06/05/22 06:38 Globulin 2.5 gm/dl (2.5-4.0) 06/05/22 06:38 Albumin/Globulin Ratio 1.1 (0.9-2) 06/05/22 06:38 Procalcitonin 2.17 ng/ml (0-0.5) H 06/04/22 12:49 TSH 0.157 uIu/ml (0.300-4.500) L 06/05/22 06:38 Urine Color Dark Yellow 06/04/22 13:41 Urine Appearance Turbid (Clear) A 06/04/22 13:41 Urine pH 5.0 (4.5-7.5) 06/04/22 13:41 Ur Specific [place] 1.034 (1.000-1.030) H 06/04/22 13:41 Urine Protein 2+ (Negative) H 06/04/22 13:41 Urine Glucose (UA) Negative (Negative) 06/04/22 13:41 Urine Ketones Trace (Negative) H 06/04/22 13:41 Urine Blood 3+ (Negative) H 06/04/22 13:41 Urine Nitrite Positive (Negative) A 06/04/22 13:41 Urine Bilirubin Negative (Negative) 06/04/22 13:41 Urine Urobilinogen Negative (Negative) 06/04/22 13:41 Ur Leukocyte Esterase Trace (Negative) H 06/04/22 13:41 Urine WBC (Auto) 10-30 /hpf (0-5) H 06/04/22 13:41 Urine RBC (Auto) 0-4 /hpf (0-4) 06/04/22 13:41 U Hyaline Cast (Auto) 1-5 /lpf (0-5) 06/04/22 13:41 U Epithel Cells (Auto) 10-20 /lpf (0-5) H 06/04/22 13:41 Urine Bacteria (Auto) 4+ (Negative) H 06/04/22 13:41 Granular Casts 1-5 /lpf (0) H 06/04/22 13:41 Urine Osmolality 362 mOsm/kg (500-800) L 06/06/22 08:17 Ur Random Creatinine 27.8 mg/dl 06/06/22 08:17 Urine Sodium 63 mmol/L 06/06/22 08:17 Urine Potassium 46.0 mmol/L 06/06/22 08:17 Urine Chloride 111 mmol/L 06/06/22 08:17 Nasal Screen MRSA (PCR) Positive (Negative) A 06/05/22 07:27 Carbamazepine 7.5 mcg/ml (4-12) 06/04/22 12:49 Adenovirus (PCR) Not Detected (NotDetected) 06/04/22 12:25 B. pertussis DNA (PCR) Not Detected (NotDetected) 06/04/22 12:25 B.parapertussis DNA PCR Not Detected (NotDetected) 06/04/22 12:25 C. pneumoniae DNA (PCR) Not Detected (NotDetected) 06/04/22 12:25 Coronavirus OC43 (PCR) Not Detected (NotDetected) 06/04/22 12:25 Coronavirus HKU1 (PCR) Not Detected (NotDetected) 06/04/22 12:25 Coronavirus 229E (PCR) Not Detected (NotDetected) 06/04/22 12:25 SARS-CoV-2 (PCR) Not Detected (NotDetected) 06/04/22 12:25 Coronavirus NL63 (PCR) Not Detected (NotDetected) 06/04/22 12:25 Human Metapneumovir PCR Not Detected (NotDetected) 06/04/22 12:25 Influenza Type A (PCR) Not Detected (NotDetected) 06/04/22 12:25 Influenza Type B (PCR) Not Detected (NotDetected) 06/04/22 12:25 M. pneumoniae (PCR) Not Detected (NotDetected) 06/04/22 12:25 Parainfluenza 1 (PCR) Not Detected (NotDetected) 06/04/22 12:25 Parainfluenza 2 (PCR) Not Detected (NotDetected) 06/04/22 12:25 Parainfluenza 3 (PCR) Not Detected (NotDetected) 06/04/22 12:25 Parainfluenza 4 (PCR) Not Detected (NotDetected) 06/04/22 12:25 RSV (PCR) Not Detected (NotDetected) 06/04/22 12:25 Entero/Rhino (PCR) Not Detected (NotDetected) 06/04/22 12:25 Impressions Chest X-Ray 06/04/22 11:31 SINGLE VIEW CHEST CLINICAL HISTORY: Sepsis. FINDINGS: An AP, portable, upright chest radiograph is compared to study dated 12/19/2020. The examination is degraded by portable technique and patient rotation. The cardiomediastinal silhouette is unremarkable. Chronic interstitial thickening similar to previous. There is mild bibasilar scarring/atelectasis. The lungs and pleural spaces are otherwise clear. No pneumothorax is seen. The skeletal structures are osteopenic. The bony thorax is grossly intact. Degenerative change is seen throughout the spine. IMPRESSION: No active disease in the chest. ACT 112: Negative or not required by law. Electronically signed by: Aditya Ramirez M.D. 06/04/2022 12:30 PM Abdomen/Pelvis CT 06/04/22 14:[address] WITH IV CONTRAST CT DOSE: 1155.34 mGy.cm HISTORY: Acute urinary tract infection with generalized abdominal pain uti, confusion TECHNIQUE: Multiaxial CT images of the abdomen and pelvis were performed following the IV administration of 94 cc of Optiray, A dose lowering technique was utilized adhering to the principles of ALARA. COMPARISON STUDY: CT lumbar spine 10/24/2018 FINDINGS: Limited exam secondary to upper extremity positioning. Subcutaneous and deep tissue edema of the imaged right upper extremity with subcutaneous emphysema. Asymmetric right lateral chest and breast edema with mild skin thickening. Mild subsegmental bibasilar atelectasis. 8 mm subpleural solid nodule of the lateral segment right middle lobe on image 36. No pneumatosis or pneumoperitoneum. The spleen measures within the upper limits of normal at 12.6 cm. Unremarkable pancreas and right adrenal gland. 8 mm soft tissue attenuating indeterminate left adrenal gland nodule. The gallbladder and liver are within normal limits. Patency of the hepatic and portal veins. 4 mm nonobstructing calculus of the superior pole left kidney. No ureteral calculi or hydronephrosis. Unremarkable urinary bladder. Indeterminate hypodense lesion of the right adnexum measuring 4.5 cm. Atherosclerosis of the aorta. No lymphadenopathy. No bowel obstruction. Moderate to marked fecal retention of the rectum with circumferential rectal wall thickening and mild adjacent inflammatory stranding. Noninflamed appendix. No acute fracture. Avascular necrosis of the femoral heads without articular collapse. Chronic L5 pars defects with grade 1 anterolisthesis. L2 vertebral body hemangioma. Chronic L1 compression deformity with progressively worsened vertebral body height loss and 2 mm retropulsion. IMPRESSION: 1. 4 mm left renal calculus. No ureteral calculi or hydronephrosis. 2. No bowel obstruction or pneumoperitoneum. 3. Moderate rectal fecal retention with findings suggestive of stercoral proctitis. 4. 8 mm right middle lobe solid pulmonary nodule. 5. Indeterminate 4.5 cm right adnexal lesion should be further evaluated with a nonemergent follow-up pelvic ultrasound. 6. Asymmetric right lateral chest wall and breast subcutaneous edema is noted in addition to right upper extremity edema and subcutaneous emphysema. Correlate with clinical exam findings to exclude infection. ACT 112: Negative or not required by law. The above report was generated using voice recognition software. It may contain grammatical, syntax or spelling errors. Electronically signed by: Isaac Tubbs M.D. 06/04/2022 4:[address] 06/04/22 14:30 CT SCAN OF THE BRAIN WITHOUT IV CONTRAST CLINICAL HISTORY: Change in mental status. History of astrocytoma. COMPARISON STUDY: CT of the brain dated 12/20/2018. TECHNIQUE: Unenhanced axial CT scan of the brain is performed from the vertex to the skull base. A dose lowering technique was utilized adhering to the principles of ALARA. FINDINGS: Brain parenchyma: Right frontal encephalomalacia is unchanged and consistent with a site of previous surgery. Right basal ganglia calcifications are unchanged. There is age-related involutional change noting moderate subcortical and periventricular microangiopathic disease. There is no hemorrhage, mass effect, or evidence of acute territorial ischemia by CT criteria. A chronic lacunar infarct is noted in the left thalamus. Miller-white matter differentiation is preserved. No extra-axial fluid collection is seen. Ventricles, sulci, cisterns: Prominent secondary to involutional change. Intracranial vasculature: There is atherosclerotic calcification of the cavernous carotid and vertebral arteries. Calvarium: The skeletal structures are heterogeneously osteopenic. There is postsurgical change from right-sided craniotomy. No destructive calvarial lesion is identified. Sinuses and mastoids: There is mild mucosal thickening in the right maxillary antrum in the right anterior ethmoid sinuses. There is complete opacification of the right frontal sinus. The mastoid air cells are well pneumatized. Orbits: The bony orbits are grossly intact. IMPRESSION: Chronic and postsurgical changes as above with no hemorrhage, mass effect, or evidence of acute territorial ischemia by CT criteria. No significant change as compared to prior studies. ACT 112: Negative or not required by law. Electronically signed by: Aditya Ramirez M.D. 06/04/2022 4:37 PM (8) CVA (cerebral vascular accident) CVA mechanism: unspecified Qualified Code(s): I63.9 - Cerebral infarction, unspecified (11) Hypothyroidism Hypothyroidism type: acquired Qualified Code(s): E03.9 - Hypothyroidism, unspecified
[2022-06-06 11:20] LABS: Hematocrit (blood only) 41.1 % (37.0-47.0); Hemoglobin 13.7 g/dl (12.0-16.0); Immature Granulocytes # (auto) 0.02 K/uL (0.01-0.20); Immature Granulocytes % (auto) 0.4 %; Lymphocytes # (auto) 2.46 K/uL (1.2-3.4); Lymphocytes % (auto) 46.8 %; Mean Corpuscular Hemoglobin 32.5 pg (25.0-34.0); Mean Corpuscular Hgb Conc 33.3 g/dL (32.0-36.0); Mean Corpuscular Volume 97.6 fL (80.0-100.0); Mean Platelet Volume 10.6 fL (9.4-12.4); Monocytes # (auto) 0.28 K/uL (0.11-0.59); Monocytes % (auto) 5.3 %; Neutrophils % (auto) 47.5 %; Platelet Count 185 K/uL (130-400); RDW Coefficient of Variation 12.8 % (11.5-14.5); RDW Standard Deviation 45.8 fL (36.4-46.3); Red Blood Count 4.21 M/uL (4.20-5.40); White Blood Count 5.26 K/ul (4.8-10.8)
[2022-06-06 11:37] LABS: BUN Creatinine Ratio 17.2 (10-20); Calcium 8.3 mg/dl (8.6-10.3); Creatinine Clr Calc Pharmacy 92.5 ml/min; Est GFR (African American) 112.4 ml/min
[2022-06-06] MEDS: cefTRIAXone SODIUM 2,000 MG in DEXTROSE 5% 50 ML IV SCH (13:41)
--- NOTE | 2022-06-06 15:20 | Fluoroscopy Report ---
FL video swallow HISTORY: r/o silent aspiration TECHNIQUE: Video fluoroscopic evaluation of swallowing was performed in the AP and lateral projection s by the speech pathology staff. The patient is fed nectar-thick and thin liquid barium, a barium coa iris wafer, and barium pudding. FLUOROSCOPY TIME: 2.9 minutes. A cine loop submitted. Ka, r: 25.0. mGy COMPARISON STUDY: None. FINDINGS: There is normal hyoid excursion and epiglottic deflection. However, there is a delayed init iation of swallowing with tongue fasciculations resulting in multiple episodes of silent aspiration w ith the thin and mildly thick liquid barium. IMPRESSION: 1. Multiple episodes of silent aspiration as described above. 2. Please see the speech pathologist report for detailed findings and recommendations. ACT 112: Negative or not required by law. Electronically signed by: Neeraj Tinsley M.D. 06/06/2022 3:18 PM
[2022-06-06] MEDS: MIRTAZAPINE TAB 15 MG TAB PO SCH (21:45)
[2022-06-06] MEDS: GABAPENTIN 300 MG CAP PO SCH (21:46)
[2022-06-06] MEDS: linaCLOtide 72 MCG CAPSULE PO SCH (21:47)
[2022-06-06] MEDS: ROSUVASTATIN CALCIUM 20 MG TAB PO SCH (21:47)
[2022-06-06] MEDS: ENOXAPARIN INJ 40 MG/0.4 ML SYR SQ SCH (21:49)
[2022-06-07] MEDS: LEVOTHYROXINE SODIUM 50 MCG TABLET PO SCH (06:30)
[2022-06-07] MEDS: PANTOprazole 40 MG TAB PO SCH (06:30)
[2022-06-07 07:36] LABS: Hematocrit (blood only) 38.4 % (37.0-47.0); Hemoglobin 12.9 g/dl (12.0-16.0); Mean Corpuscular Hemoglobin 32.3 pg (25.0-34.0); Mean Corpuscular Hgb Conc 33.6 g/dL (32.0-36.0); Mean Platelet Volume 10.6 fL (9.4-12.4); Platelet Count 160 K/uL (130-400); RDW Coefficient of Variation 12.7 % (11.5-14.5); RDW Standard Deviation 44.4 fL (36.4-46.3); White Blood Count 4.67 K/ul (4.8-10.8)
[2022-06-07 07:53] LABS: BUN Creatinine Ratio 17.2 (10-20); Calcium 8.1 mg/dl (8.6-10.3); Creatinine Clr Calc Pharmacy 85.3 ml/min; Est GFR (African American) 116.1 ml/min; Est GFR (Non-African American) 100.2 ml/min; Potassium 3.7 mmol/L (3.5-5.1)
[2022-06-07] MEDS: CETIRIZINE HCL 10 MG TABLET PO SCH (08:44)
[2022-06-07] MEDS: ACETAMINOPHEN 500 MG TAB PO SCH (08:45)
[2022-06-07] MEDS: ASPIRIN 81 MG ECTAB PO SCH (08:45)
[2022-06-07] MEDS: CYANOCOBALAMIN (B-12) 500 MCG TABLET PO SCH (08:45)
[2022-06-07] MEDS: CHOLECALCIFEROL 1,000 UNITS 25 MCG TAB PO SCH (08:46)
[2022-06-07] MEDS: MUPIROCIN 2% OINT 22 GM TUBE EXT SCH (08:46)
[2022-06-07] MEDS: modafiniL 100 MG TAB PO SCH (08:49)
[2022-06-07] MEDS: DOCUSATE SODIUM/SENNA 50/8.6MG TAB PO SCH (08:49)
[2022-06-07] MEDS: POTASSIUM CHLORIDE CRTAB 20 MEQ TABCR PO SCH (08:50)
[2022-06-07] MEDS: POLYETHYLENE (MIRALAX) 17 GM PACK PO SCH (08:50)
[2022-06-07 09:51] LABS: Immature Granulocytes # (auto) 0.02 K/uL (0.01-0.20); Immature Granulocytes % (auto) 0.4 %; Lymphocytes # (auto) 2.62 K/uL (1.2-3.4); Lymphocytes % (auto) 56.1 %; Monocytes # (auto) 0.24 K/uL (0.11-0.59); Monocytes % (auto) 5.1 %; Neutrophils # (auto) 1.79 K/uL (1.40-6.50); Neutrophils % (auto) 38.4 %; RBC Morphology Unremarkable
--- NOTE | 2022-06-07 10:50 | Discharge Summary ---
Date of Service June 07, 2022 Admission HPI Per Admitting Provider Patient is 61-year-old female with PMH astrocytoma s/p craniotomy, radiation, & chemo, subdural hygroma, CVA, chronic left hemiparesis, HTN, HLD, seizure disorder, GERD, hypothyroidism, and others listed below presented to ER for increased lethargy. History obtained from patient as well as outpatient chart review. Limited history obtained from patient secondary to mental status. Patient does report that she has not been eating or drinking well. She states sometimes she coughs when eating. She denies choking and states "she knows what choking feels like". Patient states that nursing facility made her eat and d rink yesterday. She does state that she had an IV and IV fluids 1 to 2 days ago but is unsure of the timeline. She reports chronic left-sided weakness and uses wheelchair at baseline. Patient reports chronic intermittent headaches that occur approximately every other day. Denies any increased headaches. Patient denies any vision changes. Denies nausea or vomiting. States had BM two days ago and thinks it was formed stool. She states has been having dysuria also. As per [facility] outpatient notes patient has had increased lethargy for several days. She has had very poor oral intake for months. Usually will eat breakfast but no other meal intake. It is reported patient had been noted to be more sleepy and somnolent for several months. Dietary has been trying adding supplements. She has noted left hemiparesis but has been having increased right sided weakness as well. 08/16/20 had EMG RLE which was limited secondary to patient tolerance, but there was no electrophysiological evidence of peroneal neuropathy, tibial neuropathy or polyneuropathy in the right lower extremity. Denies fever/chills, diaphoresis, N/V dizziness, syncope, CP, SOB, palpitations, rhinorrhea, abdominal pain, extremity edema, rashes. Outpatient chart reviewed: Sodium 149 on 03/21/2022 05/30/22 Na: 152 06/02/22 Na: 155. She was given 1 L D5 half-normal saline on 06/03/2022 with repeat labs 06/04/22 with sodium of 155 and potassium of 3.1 and was referred to ER. MRI brain with and without contrast: 03/22/2022: Postsurgical/posttreatment changes redemonstrated. No evidence of tumor progression Admission Exam Per Admitting Provider General: no distress, WDWN Head: normocephalic, atraumatic Eyes: conjunctiva non-injected, anicteric ENT: normal inspection external ears, nose, mucous membranes dry Neck: supple, trachea midline Lungs: clear, no respiratory distress, no wheezing/rhonchi/rales CV: RRR, no murmur Abd: normal BS, soft, non-tender Ext: no cyanosis, no calf tenderness Neuro: Alert, Slow responses. Oriented to person. Thinks is in [facility]. Unsure of date. +left sided hemiparesis (chronic). +diffuse right sided weakness, able to dorsiflex plantar flex right foot, unable to flex extend knee or hip. sensation to light touch intact RLE. able to move fingers wrist, active flexion shoulder approx 60 degrees Skin: warm, dry, right upper arm with several blisters and one blister that is deroofed (pt states had tape and IV there) without surrounding erythema. non- tender to palpation, no crepitus Principal Diagnosis Hypernatremia Acute UTI Discharge Exam Constitutional: Awake, alert, oriented to self and place. Head: Scar marcello from previous surgery present Respiratory: normal respiratory effort, lungs clear to auscultation, no wheeze, rales, rhonchi. Normal insp/exp effort, no accessory muscle use Cardiovascular: RRR, no murmur, no edema Vessels: no JVD or carotid bruit Chest: normal inspection of chest Abdomen: normal bowel sounds, soft, nontender, no hepatosplenomegaly Musculoskeletal: no cyanosis or clubbing, extremities motor strength 5/5 Skin: no rashes, warm and dry normal turgor Neurologic: Alert, oriented to self and place. Left-sided hemiparesis. Able to follow simple commands. Psychiatric: A+Ox3, euthymic affect Lymphatic: no cervical or axillary lymphadenopathy : deferred Discharge Data Allergies Allergy/AdvReac Type Severity Reaction Status Date / Time Penicillins Allergy Intermediate HIVES Verified 06/04/22 13:06 cimetidine Allergy Unknown ON Verified 06/04/22 13:06 [facility] L[facility] erythromycin base Allergy Unknown ON Verified 06/04/22 13:06 [facility] phenytoin AdvReac Intermediate HIVES Verified 06/04/22 13:06 Consultations 06/04/22 14:45 ED Decision to Admit Stat Ordered Studies 06/04/22 14:30 CT abd pelvis IV con only Stat CT head/brain wo con Stat 06/06/22 14:30 Fluoro video [FL video swallow] Routine Hospital Course (1) Chronic hypernatremia: Patient is 61-year-old female with PMH astrocytoma s/p craniotomy, radiation, & chemo, subdural hygroma, CVA, chronic left hemiparesis, HTN, HLD, seizure disorder, GERD, hypothyroidism, and others listed below presented to ER for increased lethargy and noted hypernatremia outpatient Patient presents with increasing lethargy Outside labs significant for persistent hyper natremia Reported to have very low oral intake Patient was on thickened liquid diet at rehab as per her daughter. Presenting sodium of 151. Patient was treated with D5 infusion; her sodium down trended and normalized. Swallow evaluation was done with VFSS; patient appears to aspirate on thin liquid. Dietary instruction and importance of adequate fluid intake was placed on discharge instruction. (2) UTI (urinary tract infection): Reported dysuria UA: 3+ blood, + nitrate, trace leuk esterase, 4+ bacteria Lactate: 2.3 --> 1.6. Procalcitonin: 2.17. No leukocytosis Urine culture shows E. coli which is pansensitive She was discharged on 4 more days of cefdinir. (3) Lethargy: Wheelchair bound at baseline Increased lethargy likely secondary to underlying UTI, hypernatremia, hypovolemia CT Head: Chronic and postsurgical changes as above with no hemorrhage, mass effect, or evidence of acute territorial ischemia by CT criteria. No significant change as compared to prior studies. On the day of the discharge, patient was at baseline mental status. She was awake, alert and was able to answer most of the question. (4) Hypokalemia: Repleted (5) Skin abnormality: RUE with intact and one deroofed blister. This was site of recent outpatient IV. Believe this is secondary to adhesive. No surrounding erythema or signs of cellulitis CT Abd/pelvis: Asymmetric right lateral chest wall and breast subcutaneous edema is noted in addition to right upper extremity edema and subcutaneous emphysema. This is likely secondary to recent IV. Patient is known difficult stick. No current signs of infection (6) Essential hypertension: Continue amlodipine (7) History of astrocytoma: (8) CVA (cerebral vascular accident): (9) Left hemiparesis: History astrocytoma s/p craniotomy, chemo, radiation Chronic left hemiparesis Uses wheelchair about baseline Continue aspirin, rosuvastatin (10) History of seizures: Continue carbamazepine (11) Hypothyroidism: TSH slightly decreased; will need repeat TSH at discharge after resolution of medical illness. Continue levothyroxine Discussed with patient daughter over the phone regarding the discharge instruction. Patient to be discharged back to subacute rehab. Total Time Total Time Spent Total Time Spent (In Minutes): 40 Total Time Includes: Examination of the Patient, Discharge Planning, Medication Reconciliation, Communication With Other Providers and Other Discharge Plan Discharge Items Patient Disposition: Transfer [facility] Reason For Visit: HYPERNATREMIA Discharge Diagnosis: 1) Hypernatremia 2) Acute UTI Activity: Resume your previous activity Non-emergency contact: Primary Care Provider Call non-emergency contact if: you have any medication questions and your symptoms worsen Follow-up/Referrals: Nina Haile MD [Primary Care Provider] - Diet: Heart Healthy Fluids: 1500ml (6 cups) Addtl Attending Provider Instructions: Patient was brought here with high sodium. The likely underlying cause for the high sodium is due to low water intake and urinary tract infection. She had video swallow evaluation done during her hospitalization. The recommended diet is minced and moist IDDSI diet with mildly (nectar thick) liquids. To prevent hypernatremia, it needs to be ensured that patient has adequate fluid intake. It can be given in the form of juice, milk; dilution with water can be done. Mouth care should be done. Aspiration precaution: Supervise meals. Fully alert and upright. Small bite/small sips. No straws. Reflux precaution: Upright with meals +30 minutes For the urinary tract infection, she is prescribed cefdinir twice a day for 4 more days. Her sodium on the day of the discharge was 144 Pending Studies at Discharge: No Stand-Alone Forms: My [facility] Connect Skilled Items Patient informed of condition?: Yes DNR: No Discharge Level of Care: Skilled Communicable Disease: No Discharge Prognosis: Stable Lines: None Urinary Catheter: No Medications and DC Order Prescriptions: New cefdinir 300 mg capsule 300 mg PO BID 4 Days Qty: 8 0RF Continued acetaminophen [Tylenol] 325 mg Capsule 650 mg PO Q4 MDD 3 GRAMS/24 HOURS PRN (Reason: Fever Or Pain) multivitamin Tablet 1 tab PO QAM carbamazepine 100 mg Tablet Extended Release 12 Hr 200 mg PO AMHS cyanocobalamin (vitamin B-12) [Vitamin B-12] 500 mcg Tablet 500 mcg PO QAM levothyroxine [Synthroid] 50 mcg tablet 50 mcg PO DAILYBB gabapentin [Neurontin] 300 mg capsule 300 mg PO HS cholecalciferol (vitamin D3) [Vitamin D3] 1,000 unit Capsule 1,000 unit PO QAM Linzess 72 mcg capsule 72 mcg PO HS acetaminophen 500 mg Tablet 500 mg PO TID Rx Instructions: 1 T by mouth morning, afternoon, & evening Cetaphil Cream 1 applic topical AMPM Rx Instructions: apply topically from head to toe every day in the morning and evening silver sulfadiazine 1 % Cream 1 applic TOPICAL DAILY Rx Instructions: CLEANSE LEFT BUTTOCK WITH SALINE, APPLY SILVADENE AND COVER WITH NONADHERENT DRESSING. Antibiotic ([id number]) 3.5mg-400 unit- 5,000 unit/gram Ointment 1 applic TOPICAL DAILY Rx Instructions: APPLY TO RIGHT GREAT TOE, COVER WITH BANDAID miconazole nitrate 2 % Powder 1 applic TOPICAL BID mirtazapine 15 mg tablet 15 mg PO HS amlodipine [Norvasc] 5 mg tablet 2.5 mg PO QAM aspirin 81 mg tablet,delayed release (DR/EC) 81 mg PO QAM omeprazole 20 mg capsule,delayed release(DR/EC) 20 mg PO DAILYBB cetirizine 10 mg Tablet 10 mg PO BID rosuvastatin 40 mg tablet 40 mg PO HS omega 2-azo-dik-fish oil [Fish Oil] 1,200 (144-216) mg Capsule 1 cap PO DAILY modafinil 200 mg Tablet 200 mg PO QAM sennosides-docusate sodium [Senna Plus] 8.6-50 mg Tablet 2 tab-cap PO BID potassium chloride 20 mEq Tablet Extended Release 20 meq PO BID Discharge Orders: Discharge Order (Routine); Ordered 06/07/22 Ordered By: Jemal Lacey Admission Data Admit Date/Time: 06/04/22 16:06 Attending Provider: Jemal Lacey Admit Provider: Alex Soler Primary Care Provider: Nina Haile Other Providers: Alex Soler ; [facility]
== END 2022-06-07 14:49 | DRG 689 ==
LOC: ED 10:58 → EDINP 16:06 → SUATTDRO 16:06 → 2N 19:43

== ENCOUNTER 2022-07-14 19:12 | Inpatient (IN) ==
[2022-07-14] MEDS ORDERED: CEFEPIME 2,000 MG/20 ML VIAL IV STA (19:37)
[2022-07-14] MEDS ORDERED: VANCOMYCIN HCL 1,250 MG in SODIUM CHLORIDE 0.9% 500 ML IV STA (19:37)
[2022-07-14] MEDS ORDERED: VANCOMYCIN CONSULT ACTIVE PRN (19:37)
[2022-07-14] MEDS ORDERED: SODIUM CHLORIDE 0.9% 1000ML 500 ML IV SCH (19:45)
[2022-07-14] MEDS ORDERED: SODIUM CHLORIDE 0.9% 1000ML 1,000 ML IV SCH (19:45)
[2022-07-14 20:33] LABS: Basophils # (auto) 0.01 K/uL (0-0.2); Basophils % (auto) 0.2 %; Hematocrit (blood only) 47.2 % (37.0-47.0); Hemoglobin 14.7 g/dl (12.0-16.0); Lymphocytes # (auto) 0.85 K/uL (1.2-3.4); Lymphocytes % (auto) 19.9 %; Mean Corpuscular Hemoglobin 32.7 pg (25.0-34.0); Mean Corpuscular Hgb Conc 31.1 g/dL (32.0-36.0); Mean Corpuscular Volume 105.1 fL (80.0-100.0); Mean Platelet Volume 10.3 fL (9.4-12.4); Monocytes # (auto) 0.27 K/uL (0.11-0.59); Monocytes % (auto) 6.3 %; Neutrophils # (auto) 3.15 K/uL (1.40-6.50); Neutrophils % (auto) 73.6 %; Platelet Count 132 K/uL (130-400); RDW Coefficient of Variation 12.5 % (11.5-14.5); RDW Standard Deviation 48.9 fL (36.4-46.3); Red Blood Count 4.49 M/uL (4.20-5.40); White Blood Count 4.28 K/ul (4.8-10.8)
[2022-07-14] MEDS ORDERED: ONDANSETRON INJ 2 MG/ML 2 ML VIAL IV STA (20:37)
--- NOTE | 2022-07-14 20:40 | CT Scan Report ---
CT SCAN OF THE BRAIN WITHOUT IV CONTRAST CLINICAL HISTORY: Change in mental status. History of astrocytoma. COMPARISON STUDY: CT of the brain dated 06/04/2022. TECHNIQUE: Unenhanced axial CT scan of the brain is performed from the vertex to the skull base. A do se lowering technique was utilized adhering to the principles of ALARA. The patient was scanned twice due to motion artifact. FINDINGS: Brain parenchyma: Right frontal encephalomalacia is unchanged and consistent with a site of previous surgery. Right basal ganglia calcifications are unchanged. There is age-related involutional change n oting moderate subcortical and periventricular microangiopathic disease. There is no hemorrhage, mass effect, or evidence of acute territorial ischemia by CT criteria. A chronic lacunar infarct is noted in the left thalamus. Miller-white matter differentiation is preserved. No extra-axial fluid collectio n is seen. Ventricles, sulci, cisterns: Prominent secondary to involutional change. Intracranial vasculature: There is atherosclerotic calcification of the cavernous carotid and vertebr al arteries. Calvarium: The skeletal structures are heterogeneously osteopenic. There is postsurgical change from right-sided craniotomy. No destructive calvarial lesion is identified. Sinuses and mastoids: There is mild mucosal thickening in the right maxillary antrum in the right ant erior ethmoid sinuses. There is subtotal opacification of the right frontal sinus. The mastoid air ce lls are well pneumatized. Orbits: The bony orbits are grossly intact. IMPRESSION: Chronic and postsurgical changes as above with no hemorrhage, mass effect, or evidence of acute territorial ischemia by CT criteria. No significant change as compared to prior studies. ACT 112: Negative or not required by law. Electronically signed by: Aditya Ramirez M.D. 07/14/2022 8:38 PM
[2022-07-14 20:44] LABS: Alanine Aminotransferase 18 U/L (7-52); Alkaline Phosphatase 189 U/L (34-104); Anion Gap 11 (3-11); Aspartate Aminotransferase 52 U/L (13-39); BUN Creatinine Ratio 31.5 (10-20); Bilirubin,Total 0.4 mg/dl (0.2-1.0); Blood Urea Nitrogen 23 mg/dl (6-23); Calcium 8.4 mg/dl (8.6-10.3); Carbon Dioxide 25 mmol/L (21-32); Chloride 113 mmol/L (98-107); Creatinine Clr Calc Pharmacy 67.8 ml/min; Est GFR (African American) 103.8 ml/min; Est GFR (Non-African American) 89.5 ml/min; Glucose 89 mg/dl (70-99(Fasting)); Potassium 4.3 mmol/L (3.5-5.1); Sodium 149 mmol/L (136-145); Total Protein 6.2 gm/dl (6.0-8.3)
[2022-07-14 20:50] LABS: Troponin I High Sensitivity 5.8 pg/ml (0-14)
[2022-07-14 20:54] LABS: Adenovirus PCR Not Detected (NotDetected); Bordetella parapertussis PCR Not Detected (NotDetected); Bordetella pertussis PCR Not Detected (NotDetected); Chlamydia pneumoniae PCR Not Detected (NotDetected); Coronavirus 229E PCR Not Detected (NotDetected); Coronavirus CoV-2 (COVID19)PCR Not Detected (NotDetected); Coronavirus HKU1 PCR Not Detected (NotDetected); Coronavirus NL63 PCR Not Detected (NotDetected); Coronavirus OC43PCR Not Detected (NotDetected); Influenza A PCR Not Detected (NotDetected); Influenza B PCR Not Detected (NotDetected); Mycoplasma pneumoniae PCR Not Detected (NotDetected); Parainfluenza Virus 1 PCR Not Detected (NotDetected); Parainfluenza Virus 2 PCR Not Detected (NotDetected); Parainfluenza Virus 3 PCR Not Detected (NotDetected); Parainfluenza Virus 4 PCR Not Detected (NotDetected); Respiratory Syncytial VirusPCR Not Detected (NotDetected); Rhinovirus/Enterovirus PCR Not Detected (NotDetected)
--- NOTE | 2022-07-14 20:55 | XRay Report ---
SINGLE VIEW CHEST CLINICAL HISTORY: Sepsis. FINDINGS: An AP, portable, upright chest radiograph is compared to study dated 06/04/2022. The examina tion is degraded by portable technique and patient rotation. The cardiomediastinal silhouette is unr emarkable. Chronic interstitial thickening is similar to previous. There is bibasilar scarring/atelec tasis. The lungs and pleural spaces are otherwise clear. No pneumothorax is seen. The skeletal struct ures are osteopenic. The bony thorax is grossly intact. Degenerative change is seen throughout the sp ine. IMPRESSION: No active disease in the chest. ACT 112: Negative or not required by law. Electronically signed by: Aditya Ramirez M.D. 07/14/2022 8:53 PM
--- NOTE | 2022-07-14 21:10 | Emergency Department Note ---
Impression & Plan Altered mental status, Fever ED Provider Note INFORMANT: EMS and snf notes ED PROVIDER(S): Jhonny Farrell DO CHIEF COMPLAINT: Altered mental status PLAN: Disposition: Admission Outpatient prescription management: none Discussion with: I spoke with the hospitalist, who will see the patient for admission/observation and further evaluation and consultation. MEDICAL DECISION MAKING: This is a 61-year-old female with history of a traumatic brain injury and lives in a local nursing facility. She is reportedly nonambulatory. She is a full code. Last known well was around 1745. The patient was not responding verbally as she normally does so the patient was sent in for evaluation. She also had nausea and vomiting. She vomited during her ED stay several times. The patient was noted to have a fever of 39.1 here. She does not respond to any questions or provide any history. She does open her eyes and otherwise does not follow any commands. Lung auscultation reveal some crackles in the right lung that could be related to aspiration. Abdomen is soft and nontender. She has a small wound on the right toe and the toenail area. Does not appear to be significantly or acutely infected. She is currently on Keflex based on the medication list from the snf. An EKG shows normal sinus rhythm with a rate of 99 with low voltage. CBC did not show significant leukocytosis or anemia. Lactic acid is elevated 4.3. CT scan of the brain and chest x-ray did not show acute process. Troponin was negative. Of note the patient does have an oxygen requirement. She is reportedly not on oxygen at the snf. Saturations was 88% on 4 L here. I would suspect this is likely related to aspiration. The viral panel was positive for the human metapneumovirus. The patient was seen by the hospitalist for further evaluation and care. The patient was given 30 cc/kg of fluids including normal saline and medications. She was treated with IV cefepime and IV vancomycin empirically. She was also given IV Zofran for vomiting. She did vomiting in the CT scanner may have aspirated at that time. IV Tylenol was given for fever. Triage Nursing notes reviewed. Vital Signs: reviewed Prior /Outside records reviewed: [facility] notes. Differential diagnosis: Differential includes infection, CVA, TIA, dehydration, anemia, electrolyte disturbance, seizure, trauma, intracranial bleeding, acute vascular catastrophe, thoracic aortic dissection, PE, , hypoglycemia, overdose, trauma. Diagnostics, as interpreted by me: 12 lead ECG: Sinus rhythm rate of 99. Low voltage. No ST elevation. No PVCs. Normal QTc. Cardiac Monitoring ordered: Sinus rhythm in the 90s. Medical decision rules: [none] Imaging studies: Chest x-ray: No acute disease. No pneumonia. Procedures: none. Critical care: I have personally spent 30 minutes of critical care time in the direct management of this patient. This includes bedside care, interpretation of diagnostic studies, and testing, discussion with consultants, patient, and family members, and other required patient management activities. This 30 minutes is in excess of all separately billable procedures. HPI: See MDM above. PAST MEDICAL HISTORY: See Below PAST SURGICAL HISTORY: See Below SOCIAL HISTORY: See Below HOME MEDICATIONS:See Below ALLERGIES: See Below VITALS: See Below PHYSICAL EXAMINATION: See MDM for positive findings otherwise unremarkable. CONSTITUTIONAL/VITAL SIGNS: Reviewed GENERAL:done as appropriate INTEGUMENTARY: done as appropriate HEAD: done as appropriate EYES: done as appropriate RESPIRATORY: done as appropriate CARDIOVASCULAR:done as appropriate GI/ABDOMEN:done as appropriate EXTREMITIES: done as appropriate NEUROLOGICAL: done as appropriate PSYCHIATRIC:done as appropriate MUSCULOSKELETAL:done as appropriate TRIAGE NURSING DOCUMENTATION REVIEWED. Past Med/Surg History Medical History Anxiety Benign paroxysmal positional vertigo, bilateral Chronic urticaria Depression Essential hypertension Fibromyalgia GERD (gastroesophageal reflux disease) History of astrocytoma s/p craniotomy/XRT/chemo History of peptic ulcer disease History of seizure disorder Hyperlipidemia Hypothyroidism Irritable bowel syndrome Left hemiparesis Osteoarthritis Stroke-like symptoms Surgical History History of carpal tunnel surgery of right wrist History of craniotomy History of D&C History of tubal ligation Family History Sister Family history of reaction to anesthesia Social History Smoking Status: Unknown if ever smoked Tobacco Type: Cigarettes Do You Dip or Chew Tobacco: No; Hx Alcohol Use: Yes Hx Substance Use: No Preferred Language: Omani Communication Ability: Effective Strategy Lead Required: No Beliefs That Will Affect Care: Restorationist marital status: Current Living Situation: Group Home Current Living Situation Comment: [facility] current occupational status: unemployed Feels Safe at Home: Yes Assistive Devices: Mechanical Lift Allergies Allergies Allergy/AdvReac Type Severity Reaction Status Date / Time Penicillins Allergy Intermediate [facility] Verified 07/14/22 20:09 cimetidine Allergy Unknown ON [facility] Verified 07/14/22 20:09 [facility] erythromycin base Allergy Unknown ON [facility] Verified 07/14/22 20:09 [facility] phenytoin AdvReac Intermediate HIVES Verified 07/14/22 20:09 Home Meds Home Medications Medication Instructions Recorded Confirmed acetaminophen 325 mg capsule 650 mg PO Q4 PRN Fever Or Pain 06/06/18 07/14/22 (Tylenol) cholecalciferol (vitamin D3) 25 1,000 unit PO QAM 06/06/18 07/14/22 mcg (1,000 unit) capsule (Vitamin D3) cyanocobalamin (vitamin B-12) 500 500 mcg PO QAM 06/06/18 07/14/22 mcg tablet (Vitamin B-12) gabapentin 300 mg capsule 300 mg PO HS 06/06/18 07/14/22 (Neurontin) levothyroxine 50 mcg tablet 50 mcg PO DAILYBB 06/06/18 07/14/22 (Synthroid) linaclotide 72 mcg capsule 72 mcg PO HS 06/06/18 07/14/22 (Linzess) multivitamin 1 tab PO QAM 06/06/18 07/14/22 acetaminophen 500 mg tablet 500 mg PO TID 12/20/18 07/14/22 cetyl and stearate 1 applic topical AMPM 12/20/18 07/14/22 alcohol-propylen glycol-sls topical cream (Cetaphil topical cream) amlodipine 5 mg tablet (Norvasc) 2.5 mg PO QAM 12/19/20 07/14/22 aspirin 81 mg tablet,delayed 81 mg PO QAM 12/19/20 07/14/22 release cetirizine 10 mg tablet 10 mg PO BID 12/19/20 07/14/22 modafinil 200 mg tablet 200 mg PO QAM 12/19/20 07/14/22 omega 5-olc-vkb-fish oil 1,200 mg 1 cap PO DAILY 12/19/20 07/14/22 (144 mg-216 mg) capsule (Fish Oil) omeprazole 20 mg capsule,delayed 20 mg PO DAILYBB 12/19/20 07/14/22 release potassium chloride 20 mEq 20 meq PO BID 12/19/20 07/14/22 tablet,extended release rosuvastatin 40 mg tablet 40 mg PO HS 12/19/20 07/14/22 sennosides 8.6 mg-docusate sodium 2 tab-cap PO BID 12/19/20 07/14/22 50 mg tablet (Senna Plus) miconazole nitrate 2 % topical 1 applic topical BID 06/04/22 07/14/22 powder mirtazapine 15 mg tablet 15 mg PO HS 06/04/22 07/14/22 neomycin-bacitracn Zn-polymyx 3.5 1 applic topical DAILY 06/04/22 07/14/22 mg-400 unit-5,000 unit/gram top oint (Antibiotic(ehzvp-[id number]-lmpev)) Magic Mix 1 applic topical TID 07/14/22 07/14/22 Theracalazinc 1 applic topical TID 07/14/22 07/14/22 carbamazepine 200 mg 200 mg PO BID 07/14/22 07/14/22 capsule,extended release [id number] cephalexin 500 mg capsule 500 mg PO TID 07/14/22 07/14/22 ketoconazole 2 % topical cream 1 applic topical BID 07/14/22 07/14/22 Results & Data (ED) Vital Signs Vital Signs - 24 hr 07/14/22 19:25 07/14/22 20:08 07/14/22 20:29 Temperature 39.1 C H Temperature Source Oral Pulse Rate 99 H 99 H Respiratory Rate 19 Respiratory Effort / Characteristics Non-Labored Spontaneous Respiratory Depth Normal Respiratory Pattern Regular Blood Pressure 123/87 Blood Pressure Mean 99 Blood Pressure Position Lying Pulse Oximetry 95 88 L Oxygen Delivery Method Nasal Cannula Nasal Cannula Oxygen Flow Rate 6 4 Sepsis Recent Fever Within 48 Hours Yes Sepsis New/Unexplained Change in Mental Status Yes Sepsis Action Taken by Nursing Physician Notified Oxygen Flow Rate - Titration 6 Pulse Oximetry Post Tiitration 94 07/14/22 19:22 07/14/22 22:09 07/14/22 20:41 Temperature Temperature Source Pulse Rate 98 H 106 H Respiratory Rate 22 26 H Respiratory Effort / Characteristics Respiratory Depth Respiratory Pattern Blood Pressure 123/87 107/71 Blood Pressure Mean 99 83 Blood Pressure Position Pulse Oximetry 100 94 91 Oxygen Delivery Method Aerosol Mask Oxygen Flow Rate 4 4 Sepsis Recent Fever Within 48 Hours Sepsis New/Unexplained Change in Mental Status Sepsis Action Taken by Nursing Oxygen Flow Rate - Titration Pulse Oximetry Post Tiitration 07/14/22 21:00 07/14/22 22:00 Temperature Temperature Source Pulse Rate 98 H 101 H Respiratory Rate 12 22 Respiratory Effort / Characteristics Respiratory Depth Respiratory Pattern Blood Pressure 110/75 112/72 Blood Pressure Mean 86 85 Blood Pressure Position Pulse Oximetry 99 96 Oxygen Delivery Method Aerosol Mask Oxygen Flow Rate Sepsis Recent Fever Within 48 Hours Sepsis New/Unexplained Change in Mental Status Sepsis Action Taken by Nursing Oxygen Flow Rate - Titration Pulse Oximetry Post Tiitration Laboratory Data 07/14/22 20:04 07/14/22 20:04 Lab Results 07/14/22 07/14/22 07/14/22 Range/Units 19:15 19:40 20:04 WBC 4.28 L (4.8-10.8) K/ul RBC 4.49 (4.20-5.40) M/uL Hgb 14.7 (12.0-16.0) g/dl Hct 47.2 H (37.0-47.0) % MCV 105.1 H (80.0-100.0) fL MCH 32.7 (25.0-34.0) pg MCHC 31.1 L (32.0-36.0) g/dL RDW Std Deviation 48.9 H (36.4-46.3) fL RDW Coeff of Claudio 12.5 (11.5-14.5) % Plt Count 132 (130-400) K/uL MPV 10.3 (9.4-12.4) fL Immature Gran % (Auto) 0.0 % Neut % (Auto) 73.6 % Lymph % (Auto) 19.9 % [place] % (Auto) 6.3 % Eos % (Auto) 0.0 % Baso % (Auto) 0.2 % Neut # (Auto) 3.15 (1.40-6.50) K/uL Lymph # (Auto) 0.85 L (1.2-3.4) K/uL [place] # (Auto) 0.27 (0.11-0.59) K/uL Eos # (Auto) 0.00 (0-0.50) K/uL Baso # (Auto) 0.01 (0-0.2) K/uL Immature Gran # (Auto) 0.00 L (0.01-0.20) K/uL ABG pH (7.35-7.45) ABG pCO2 (35-46) mmHg ABG pO2 (80-95) mmHg ABG HCO3 (19-24) mmol/L ABG O2 Saturation (90-95) % ABG Base Excess (-9-1.8) mEq/L Abimael Test (Pos) Oxygen Given Sodium (136-145) mmol/L Potassium (3.5-5.1) mmol/L Chloride (98-107) mmol/L Carbon Dioxide (21-32) mmol/L Anion Gap (3-11) BUN (6-23) mg/dl Creatinine (0.6-1.2) mg/dl Est Cr Clr Drug Dosing ml/min Est GFR ( Amer) ml/min Est GFR (Non-Af Amer) ml/min BUN/Creatinine Ratio (10-20) Glucose (70-99(Fasting)) mg/dl POC Glucose 95 (70-99) mg/dl Lactate (0.4-2.0) mmol/L Calcium (8.6-10.3) mg/dl Magnesium (1.7-2.4) mg/dl Total Bilirubin (0.2-1.0) mg/dl Direct Bilirubin AST (13-39) U/L ALT (7-52) U/L Alkaline Phosphatase (34-104) U/L Troponin I High Sens (0-14) pg/ml Total Protein (6.0-8.3) gm/dl Albumin (3.4-5.0) gm/dl Procalcitonin (0-0.5) ng/ml Urine Color Urine Appearance (Clear) Urine pH (4.5-7.5) Ur Specific [place] (1.000-1.030) Urine Protein (Negative) Urine Glucose (UA) (Negative) Urine Ketones (Negative) Urine Blood (Negative) Urine Nitrite (Negative) Urine Bilirubin (Negative) Urine Urobilinogen (Negative) Ur Leukocyte Esterase (Negative) Urine WBC (Auto) (0-5) /hpf Urine RBC (Auto) (0-4) /hpf U Hyaline Cast (Auto) (0-5) /lpf U Epithel Cells (Auto) (0-5) /lpf Urine Bacteria (Auto) (Negative) Ur Renal Epithelial Cell (0-5) /lpf Amorphous Sediment (None Prsent) Granular Casts (0) /lpf Urine Yeast Carbamazepine (4-12) mcg/ml Adenovirus (PCR) Not Detected (NotDetected) B. pertussis DNA (PCR) Not Detected (NotDetected) B.parapertussis DNA PCR Not Detected (NotDetected) C. pneumoniae DNA (PCR) Not Detected (NotDetected) Coronavirus OC43 (PCR) Not Detected (NotDetected) Coronavirus HKU1 (PCR) Not Detected (NotDetected) Coronavirus 229E (PCR) Not Detected (NotDetected) SARS-CoV-2 (PCR) Not Detected (NotDetected) Coronavirus NL63 (PCR) Not Detected (NotDetected) Human Metapneumovir PCR DETECTED A* (NotDetected) Influenza Type A (PCR) Not Detected (NotDetected) Influenza Type B (PCR) Not Detected (NotDetected) M. pneumoniae (PCR) Not Detected (NotDetected) Parainfluenza 1 (PCR) Not Detected (NotDetected) Parainfluenza 2 (PCR) Not Detected (NotDetected) Parainfluenza 3 (PCR) Not Detected (NotDetected) Parainfluenza 4 (PCR) Not Detected (NotDetected) RSV (PCR) Not Detected (NotDetected) Entero/Rhino (PCR) Not Detected (NotDetected) 07/14/22 07/14/22 07/14/22 Range/Units 20:04 20:04 20:04 WBC (4.8-10.8) K/ul RBC (4.20-5.40) M/uL Hgb (12.0-16.0) g/dl Hct (37.0-47.0) % MCV (80.0-100.0) fL MCH (25.0-34.0) pg MCHC (32.0-36.0) g/dL RDW Std Deviation (36.4-46.3) fL RDW Coeff of Claudio (11.5-14.5) % Plt Count (130-400) K/uL MPV (9.4-12.4) fL Immature Gran % (Auto) % Neut % (Auto) % Lymph % (Auto) % [place] % (Auto) % Eos % (Auto) % Baso % (Auto) % Neut # (Auto) (1.40-6.50) K/uL Lymph # (Auto) (1.2-3.4) K/uL [place] # (Auto) (0.11-0.59) K/uL Eos # (Auto) (0-0.50) K/uL Baso # (Auto) (0-0.2) K/uL Immature Gran # (Auto) (0.01-0.20) K/uL ABG pH (7.35-7.45) ABG pCO2 (35-46) mmHg ABG pO2 (80-95) mmHg ABG HCO3 (19-24) mmol/L ABG O2 Saturation (90-95) % ABG Base Excess (-9-1.8) mEq/L Abimael Test (Pos) Oxygen Given Sodium 149 H (136-145) mmol/L Potassium 4.3 (3.5-5.1) mmol/L Chloride 113 H (98-107) mmol/L Carbon Dioxide 25 (21-32) mmol/L Anion Gap 11 (3-11) BUN 23 (6-23) mg/dl Creatinine 0.73 (0.6-1.2) mg/dl Est Cr Clr Drug Dosing 67.8 ml/min Est GFR ( Amer) 103.8 ml/min Est GFR (Non-Af Amer) 89.5 ml/min BUN/Creatinine Ratio 31.5 H (10-20) Glucose 89 (70-99(Fasting)) mg/dl POC Glucose (70-99) mg/dl Lactate 4.3 H* (0.4-2.0) mmol/L Calcium 8.4 L (8.6-10.3) mg/dl Magnesium 2.0 (1.7-2.4) mg/dl Total Bilirubin 0.4 (0.2-1.0) mg/dl Direct Bilirubin TNP AST 52 H (13-39) U/L ALT 18 (7-52) U/L Alkaline Phosphatase 189 H (34-104) U/L Troponin I High Sens 5.8 (0-14) pg/ml Total Protein 6.2 (6.0-8.3) gm/dl Albumin 3.0 L (3.4-5.0) gm/dl Procalcitonin 47.52 H (0-0.5) ng/ml Urine Color Urine Appearance (Clear) Urine pH (4.5-7.5) Ur Specific [place] (1.000-1.030) Urine Protein (Negative) Urine Glucose (UA) (Negative) Urine Ketones (Negative) Urine Blood (Negative) Urine Nitrite (Negative) Urine Bilirubin (Negative) Urine Urobilinogen (Negative) Ur Leukocyte Esterase (Negative) Urine WBC (Auto) (0-5) /hpf Urine RBC (Auto) (0-4) /hpf U Hyaline Cast (Auto) (0-5) /lpf U Epithel Cells (Auto) (0-5) /lpf Urine Bacteria (Auto) (Negative) Ur Renal Epithelial Cell (0-5) /lpf Amorphous Sediment (None Prsent) Granular Casts (0) /lpf Urine Yeast Carbamazepine (4-12) mcg/ml Adenovirus (PCR) (NotDetected) B. pertussis DNA (PCR) (NotDetected) B.parapertussis DNA PCR (NotDetected) C. pneumoniae DNA (PCR) (NotDetected) Coronavirus OC43 (PCR) (NotDetected) Coronavirus HKU1 (PCR) (NotDetected) Coronavirus 229E (PCR) (NotDetected) SARS-CoV-2 (PCR) (NotDetected) Coronavirus NL63 (PCR) (NotDetected) Human Metapneumovir PCR (NotDetected) Influenza Type A (PCR) (NotDetected) Influenza Type B (PCR) (NotDetected) M. pneumoniae (PCR) (NotDetected) Parainfluenza 1 (PCR) (NotDetected) Parainfluenza 2 (PCR) (NotDetected) Parainfluenza 3 (PCR) (NotDetected) Parainfluenza 4 (PCR) (NotDetected) RSV (PCR) (NotDetected) Entero/Rhino (PCR) (NotDetected) 07/14/22 07/14/22 07/14/22 Range/Units 21:10 21:10 21:42 WBC (4.8-10.8) K/ul RBC (4.20-5.40) M/uL Hgb (12.0-16.0) g/dl Hct (37.0-47.0) % MCV (80.0-100.0) fL MCH (25.0-34.0) pg MCHC (32.0-36.0) g/dL RDW Std Deviation (36.4-46.3) fL RDW Coeff of Claudio (11.5-14.5) % Plt Count (130-400) K/uL MPV (9.4-12.4) fL Immature Gran % (Auto) % Neut % (Auto) % Lymph % (Auto) % [place] % (Auto) % Eos % (Auto) % Baso % (Auto) % Neut # (Auto) (1.40-6.50) K/uL Lymph # (Auto) (1.2-3.4) K/uL [place] # (Auto) (0.11-0.59) K/uL Eos # (Auto) (0-0.50) K/uL Baso # (Auto) (0-0.2) K/uL Immature Gran # (Auto) (0.01-0.20) K/uL ABG pH (7.35-7.45) ABG pCO2 (35-46) mmHg ABG pO2 (80-95) mmHg ABG HCO3 (19-24) mmol/L ABG O2 Saturation (90-95) % ABG Base Excess (-9-1.8) mEq/L Abimael Test (Pos) Oxygen Given Sodium (136-145) mmol/L Potassium (3.5-5.1) mmol/L Chloride (98-107) mmol/L Carbon Dioxide (21-32) mmol/L Anion Gap (3-11) BUN (6-23) mg/dl Creatinine (0.6-1.2) mg/dl Est Cr Clr Drug Dosing ml/min Est GFR ( Amer) ml/min Est GFR (Non-Af Amer) ml/min BUN/Creatinine Ratio (10-20) Glucose (70-99(Fasting)) mg/dl POC Glucose (70-99) mg/dl Lactate (0.4-2.0) mmol/L Calcium (8.6-10.3) mg/dl Magnesium (1.7-2.4) mg/dl Total Bilirubin (0.2-1.0) mg/dl Direct Bilirubin 0.1 AST (13-39) U/L ALT (7-52) U/L Alkaline Phosphatase (34-104) U/L Troponin I High Sens (0-14) pg/ml Total Protein (6.0-8.3) gm/dl Albumin (3.4-5.0) gm/dl Procalcitonin (0-0.5) ng/ml Urine Color Dark Yellow Urine Appearance Turbid A (Clear) Urine pH 5.0 (4.5-7.5) Ur Specific [place] 1.029 (1.000-1.030) Urine Protein 2+ H (Negative) Urine Glucose (UA) Negative (Negative) Urine Ketones Negative (Negative) Urine Blood Negative (Negative) Urine Nitrite Negative (Negative) Urine Bilirubin Negative (Negative) Urine Urobilinogen Negative (Negative) Ur Leukocyte Esterase Negative (Negative) Urine WBC (Auto) 10-30 H (0-5) /hpf Urine RBC (Auto) 0-4 (0-4) /hpf U Hyaline Cast (Auto) 1-5 (0-5) /lpf U Epithel Cells (Auto) >30 H (0-5) /lpf Urine Bacteria (Auto) Negative (Negative) Ur Renal Epithelial Cell 0-5 (0-5) /lpf Amorphous Sediment Present A (None Prsent) Granular Casts 1-5 H (0) /lpf Urine Yeast Not Reportable Carbamazepine 8.7 (4-12) mcg/ml Adenovirus (PCR) (NotDetected) B. pertussis DNA (PCR) (NotDetected) B.parapertussis DNA PCR (NotDetected) C. pneumoniae DNA (PCR) (NotDetected) Coronavirus OC43 (PCR) (NotDetected) Coronavirus HKU1 (PCR) (NotDetected) Coronavirus 229E (PCR) (NotDetected) SARS-CoV-2 (PCR) (NotDetected) Coronavirus NL63 (PCR) (NotDetected) Human Metapneumovir PCR (NotDetected) Influenza Type A (PCR) (NotDetected) Influenza Type B (PCR) (NotDetected) M. pneumoniae (PCR) (NotDetected) Parainfluenza 1 (PCR) (NotDetected) Parainfluenza 2 (PCR) (NotDetected) Parainfluenza 3 (PCR) (NotDetected) Parainfluenza 4 (PCR) (NotDetected) RSV (PCR) (NotDetected) Entero/Rhino (PCR) (NotDetected) 07/14/22 07/14/22 Range/Units 21:47 21:47 WBC (4.8-10.8) K/ul RBC (4.20-5.40) M/uL Hgb (12.0-16.0) g/dl Hct (37.0-47.0) % MCV (80.0-100.0) fL MCH (25.0-34.0) pg MCHC (32.0-36.0) g/dL RDW Std Deviation (36.4-46.3) fL RDW Coeff of Claudio (11.5-14.5) % Plt Count (130-400) K/uL MPV (9.4-12.4) fL Immature Gran % (Auto) % Neut % (Auto) % Lymph % (Auto) % [place] % (Auto) % Eos % (Auto) % Baso % (Auto) % Neut # (Auto) (1.40-6.50) K/uL Lymph # (Auto) (1.2-3.4) K/uL [place] # (Auto) (0.11-0.59) K/uL Eos # (Auto) (0-0.50) K/uL Baso # (Auto) (0-0.2) K/uL Immature Gran # (Auto) (0.01-0.20) K/uL ABG pH 7.33 L (7.35-7.45) ABG pCO2 42 (35-46) mmHg ABG pO2 73 L (80-95) mmHg ABG HCO3 22 (19-24) mmol/L ABG O2 Saturation 96.4 H (90-95) % ABG Base Excess -3.7 (-9-1.8) mEq/L Abimael Test Pos (Pos) Oxygen Given FLOW RATE 4 Sodium (136-145) mmol/L Potassium (3.5-5.1) mmol/L Chloride (98-107) mmol/L Carbon Dioxide (21-32) mmol/L Anion Gap (3-11) BUN (6-23) mg/dl Creatinine (0.6-1.2) mg/dl Est Cr Clr Drug Dosing ml/min Est GFR ( Amer) ml/min Est GFR (Non-Af Amer) ml/min BUN/Creatinine Ratio (10-20) Glucose (70-99(Fasting)) mg/dl POC Glucose (70-99) mg/dl Lactate 2.2 H* (0.4-2.0) mmol/L Calcium (8.6-10.3) mg/dl Magnesium (1.7-2.4) mg/dl Total Bilirubin (0.2-1.0) mg/dl Direct Bilirubin AST (13-39) U/L ALT (7-52) U/L Alkaline Phosphatase (34-104) U/L Troponin I High Sens (0-14) pg/ml Total Protein (6.0-8.3) gm/dl Albumin (3.4-5.0) gm/dl Procalcitonin (0-0.5) ng/ml Urine Color Urine Appearance (Clear) Urine pH (4.5-7.5) Ur Specific [place] (1.000-1.030) Urine Protein (Negative) Urine Glucose (UA) (Negative) Urine Ketones (Negative) Urine Blood (Negative) Urine Nitrite (Negative) Urine Bilirubin (Negative) Urine Urobilinogen (Negative) Ur Leukocyte Esterase (Negative) Urine WBC (Auto) (0-5) /hpf Urine RBC (Auto) (0-4) /hpf U Hyaline Cast (Auto) (0-5) /lpf U Epithel Cells (Auto) (0-5) /lpf Urine Bacteria (Auto) (Negative) Ur Renal Epithelial Cell (0-5) /lpf Amorphous Sediment (None Prsent) Granular Casts (0) /lpf Urine Yeast Carbamazepine (4-12) mcg/ml Adenovirus (PCR) (NotDetected) B. pertussis DNA (PCR) (NotDetected) B.parapertussis DNA PCR (NotDetected) C. pneumoniae DNA (PCR) (NotDetected) Coronavirus OC43 (PCR) (NotDetected) Coronavirus HKU1 (PCR) (NotDetected) Coronavirus 229E (PCR) (NotDetected) SARS-CoV-2 (PCR) (NotDetected) Coronavirus NL63 (PCR) (NotDetected) Human Metapneumovir PCR (NotDetected) Influenza Type A (PCR) (NotDetected) Influenza Type B (PCR) (NotDetected) M. pneumoniae (PCR) (NotDetected) Parainfluenza 1 (PCR) (NotDetected) Parainfluenza 2 (PCR) (NotDetected) Parainfluenza 3 (PCR) (NotDetected) Parainfluenza 4 (PCR) (NotDetected) RSV (PCR) (NotDetected) Entero/Rhino (PCR) (NotDetected) Administered Medications Discontinued Medications Cefepime HCl (Maxipime) 2,000 mg in 20 mls @ 5 mls/min IV NOW STA; Protocol Stop: 07/14/22 19:40 Last Admin: 07/14/22 20:11 Dose: 5 mls/min Documented By: NAMITA Vancomycin HCl 1,250 mg/ (Sodium Chloride) 525 mls @ 200 mls/hr IV NOW STA Stop: 07/14/22 22:14 Last Admin: 07/14/22 20:12 Dose: 200 mls/hr Documented By: NAMITA Sodium Chloride (Nss 1000ml) 1,000 mls @ 999 mls/hr IV .Q1H1M [facility] Stop: 07/14/22 20:45 Last Infusion: 07/14/22 21:28 Dose: 0 mls/hr Documented By: Admin: 07/14/22 20:14 Dose: 999 mls/hr Documented By: NAMITA Sodium Chloride (Nss 1000ml) 500 mls @ 999 mls/hr IV .Q31M [facility] Stop: 07/14/22 20:15 Last Infusion: 07/14/22 21:28 Dose: 0 mls/hr Documented By: Admin: 07/14/22 20:14 Dose: 999 mls/hr Documented By: NAMITA Acetaminophen (Ofirmev) 1,000 mg in 100 mls @ 400 mls/hr IV NOW STA Stop: 07/14/22 21:30 Last Admin: 07/14/22 22:05 Dose: 400 mls/hr Documented By: NAMITA Ipratropium [place] (Ipratropium [place] Neb Soln 0.02% 2.5 Ml Vial) 0.5 mg INH NOW STA Stop: 07/14/22 21:34 Last Admin: 07/14/22 22:04 Dose: 0.5 mg Documented By: NAMITA Levalbuterol HCl (Levalbuterol Hcl 1.25 Mg/3 Ml Neb) 1.25 mg INH NOW STA Stop: 07/14/22 21:34 Last Admin: 07/14/22 22:04 Dose: 1.25 mg Documented By: NAMITA Methylprednisolone (Methylprednisolone 40 Mg/Ml Vial) 40 mg IV NOW STA Stop: 07/14/22 21:39 Last Admin: 07/14/22 22:04 Dose: 40 mg Documented By: NAMITA Ondansetron HCl (Ondansetron Inj 2 Mg/Ml 2 Ml Vial) 4 mg IV NOW STA Stop: 07/14/22 20:38 Last Admin: 07/14/22 20:42 Dose: 4 mg Documented By: NAMITA Imaging Data Radiologist's Impression: Chest X-Ray 07/14/22 19:38 SINGLE VIEW CHEST CLINICAL HISTORY: Sepsis. FINDINGS: An AP, portable, upright chest radiograph is compared to study dated 06/04/2022. The examination is degraded by portable technique and patient rotation. The cardiomediastinal silhouette is unremarkable. Chronic inte rstitial thickening is similar to previous. There is bibasilar scarring/atelectasis. The lungs and pleural spaces are otherwise clear. No pneumothorax is seen. The skeletal structures are osteopenic. The bony thorax is grossly intact. Degenerative change is seen throughout the spine. IMPRESSION: No active disease in the chest. ACT 112: Negative or not required by law. Electronically signed by: Aditya Ramirez M.D. 07/14/2022 8:[address] 07/14/22 19:56 CT SCAN OF THE BRAIN WITHOUT IV CONTRAST CLINICAL HISTORY: Change in mental status. History of astrocytoma. COMPARISON STUDY: CT of the brain dated 06/04/2022. TECHNIQUE: Unenhanced axial CT scan of the brain is performed from the vertex to the skull base. A dose lowering technique was utilized adhering to the principles of ALARA. The patient was scanned twice due to motion artifact. FINDINGS: Brain parenchyma: Right frontal encephalomalacia is unchanged and consistent with a site of previous surgery. Right basal ganglia calcifications are unchanged. There is age-related involutional change noting moderate subcortical and periventricular microangiopathic disease. There is no hemorrhage, mass effect, or evidence of acute territorial ischemia by CT criteria. A chronic lacunar infarct is noted in the left thalamus. Miller-white matter differentiation is preserved. No extra-axial fluid collection is seen. Ventricles, sulci, cisterns: Prominent secondary to involutional change. Intracranial vasculature: There is atherosclerotic calcification of the cave rnous carotid and vertebral arteries. Calvarium: The skeletal structures are heterogeneously osteopenic. There is postsurgical change from right-sided craniotomy. No destructive calvarial lesion is identified. Sinuses and mastoids: There is mild mucosal thickening in the right maxillary antrum in the right anterior ethmoid sinuses. There is subtotal opacification of the right frontal sinus. The mastoid air cells are well pneumatized. Orbits: The bony orbits are grossly intact. IMPRESSION: Chronic and postsurgical changes as above with no hemorrhage, mass effect, or evidence of acute territorial ischemia by CT criteria. No significant change as compared to prior studies. ACT 112: Negative or not required by law. Electronically signed by: Aditya Ramirez M.D. 07/14/2022 8:38 PM Discharge Plan Visit Data Chief Complaint: Unresponsive Stated Complaint: UNRESPONSIVE ED Provider: Jhonny Farrell Discharge Problem: Altered mental status, Fever Patient Disposition: Being Evaluated by Hospitalist Forms Stand Alone Forms: [facility], Virtual Emergency Department, Important Visit Information Prescriptions Prescriptions: No Action acetaminophen [Tylenol] 325 mg Capsule 650 mg PO Q4 MDD 3 GRAMS APAP/24 HOURS PRN (Reason: Fever Or Pain) multivitamin Tablet 1 tab PO QAM cyanocobalamin (vitamin B-12) [Vitamin B-12] 500 mcg Tablet 500 mcg PO QAM levothyroxine [Synthroid] 50 mcg tablet 50 mcg PO DAILYBB gabapentin [Neurontin] 300 mg capsule 300 mg PO HS cholecalciferol (vitamin D3) [Vitamin D3] 1,000 unit Capsule 1,000 unit PO QAM Linzess 72 mcg capsule 72 mcg PO HS acetaminophen 500 mg Tablet 500 mg PO TID Rx Instructions: 1 T by mouth morning, afternoon, & evening Cetaphil Cream 1 applic topical AMPM Rx Instructions: apply topically from head to toe every day in the morning and evening Antibiotic (dpgzj-gflsn-aidup) 3.5mg-400 unit- 5,000 unit/gram Ointment 1 applic TOPICAL DAILY Rx Instructions: STARTED 07/10/22 FOR 14 DAYS. APPLY TO RIGHT GREAT TOE, COVER WITH BANDAID miconazole nitrate 2 % Powder 1 applic TOPICAL BID Rx Instructions: STARTED 07/06/22 FOR 14 DAYS. APPLY TO LEFT AXILLA AND RIGHT ABD FOLD. mirtazapine 15 mg tablet 15 mg PO HS ketoconazole [Nizoral] 2 % Cream 1 applic TOPICAL BID Rx Instructions: STARTED 07/07/22 FOR 14 DAYS. APPLY TO WEBSPACES BETWEEN TOES LEFT FOOT. Magic Mix 1 applic topical TID Rx Instructions: CLEANSE RIGHT COCCYX AREA WITH NSS OR WOUND CLEANSER, APPLY MAGIC MIX TO THE WOUND BASES Q SHIFT AND PRN.---SILVADENE, NYSTATIN, ZINC 40%, HYDROCORTISONE 1%. Theracalazinc 1 applic topical TID cephalexin 500 mg Capsule 500 mg PO TID Rx Instructions: STARTED 07/07/22 FOR 10 DAYS. carbamazepine 200 mg capsule, ER multiphase 12 hr 200 mg PO BID amlodipine [Norvasc] 5 mg tablet 2.5 mg PO QAM aspirin 81 mg tablet,delayed release (DR/EC) 81 mg PO QAM omeprazole 20 mg capsule,delayed release(DR/EC) 20 mg PO DAILYBB cetirizine 10 mg Tablet 10 mg PO BID rosuvastatin 40 mg tablet 40 mg PO HS omega 0-bxc-aho-fish oil [Fish Oil] 1,200 (144-216) mg Capsule 1 cap PO DAILY modafinil 200 mg Tablet 200 mg PO QAM sennosides-docusate sodium [Senna Plus] 8.6-50 mg Tablet 2 tab-cap PO BID potassium chloride 20 mEq Tablet Extended Release 20 meq PO BID Referrals Referrals: Nina Haile MD [Primary Care Provider] -
[2022-07-14 21:13] LABS: Human Metapneumovirus PCR DETECTED (NotDetected)
[2022-07-14] MEDS ORDERED: ACETAMINOPHEN 1,000 MG/100 ML VIAL IV STA (21:16)
[2022-07-14] MEDS ORDERED: ERTAPENEM SODIUM 10 ML IV STA (21:31)
[2022-07-14] MEDS ORDERED: XOPENEX/ATROVENT 1.25mg/0.5MG NEB COMBO NEB STA (21:33)
[2022-07-14] MEDS ORDERED: methylPREDNISolone 40 MG in SYRINGE 0 ML IV STA (21:33)
[2022-07-14] MEDS ORDERED: IPRATROPIUM BROMIDE NEB SOLN 0.02% 2.5 ML VIAL INH STA (21:33)
[2022-07-14] MEDS ORDERED: LEVALBUTEROL 1.25 MG/3 ML NEB INH STA (21:33)
[2022-07-14] MEDS ORDERED: SODIUM CHLORIDE 0.45 % 1,000 ML IV ONE (21:33)
[2022-07-14] MEDS ORDERED: CLINDAMYCIN/D5W 900 MG/50 ML BAG IV ONE (21:38)
[2022-07-14 21:58] LABS: Base Excess ABG -3.7 mEq/L (-9-1.8); HCO3 ABG 22 mmol/L (19-24); Oxygen Saturation ABG 96.4 % (90-95); PCO2 ABG 42 mmHg (35-46); PO2 ABG 73 mmHg (80-95); pH ABG 7.33 (7.35-7.45)
[2022-07-14 21:59] LABS: Appearance Urine Turbid (Clear); Bacteria Urine Automated Negative (Negative); Bilirubin Urine Negative (Negative); Blood Urine Negative (Negative); Color Urine Dark Yellow; Epithelial Cell Urine Auto >30 /lpf (0-5); Glucose Urine UA Negative (Negative); Ketones Urine Negative (Negative); Leukocyte Esterase Urine Negative (Negative); Nitrite Urine Negative (Negative); Protein Urine 2+ (Negative); RBC Urine Automated 0-4 /hpf (0-4); Specific Gravity Urine 1.029 (1.000-1.030); Urobilinogen Urine Negative (Negative)
[2022-07-14 22:08] LABS: Allen Test Pos (Pos)
--- NOTE | 2022-07-14 22:10 | History & Physical Report ---
Date of Service July 14, 2022 Assessment & Plan (1) Severe sepsis: Plan: SIRS plus lactic acidosis plus encephalopathy plus hypoxemia Possible sources Aspiration pneumonia/HCAP, positive MRSA nasal swab Complicated UTI Colitis on CT rule out C. difficile given recent Keflex Rx for toe infection hx CVA hypertension, BP on the lower side hyperlipidemia, on statin Rx seizure disorder on Tegretol hx astrocytoma status post surgery/chemoradiation traumatic brain as per records GERD on PPI hypothyroidism, TSH from 2 months ago noted to be low past tobacco abuse Medical telemetry CS, Vancomycin, ertapenem for possible HCAP/aspiration pneumonia, possible UTI Stool C. difficile, IV Flagyl 1 dose now given sepsis, oral vancomycin if C. difficile positive Supplemental O2, baseline ABG Nebs and Solu-Medrol stat given bronchospasm causing hypoxemia Aspiration precautions, repeat PLASTIC MACHINE OPERATOR eval IVF, follow lactic acid recheck TSH DVT prophylaxis. SCDs Re: hx Brain tumor Full code as per patient's prior directives. Will update patient's family in a.m. regarding plan of care. (Patient daughter, Bettie Bang, [phone]) Total critical care time was 40 minutes. ADDENDUM 07/15, 7AM Patient daughter (Ms. Bettie Bang) updated of patient condition and plan of care over the phone. Patient has adamantly stated in the past that she does not want feeding tube placement if recommended by PLASTIC MACHINE OPERATOR given concerns for aspiration. Patient daughter likewise agreeable to de-escalating patient's CODE STATUS to DNR after contemplating on her mother's suboptimal quality of life following brain tumor surgery. Continue with current medical management as per discussion. History of Present Illness Chief Complaint: Fever, altered mental status as per records Primary Care Provider: Nina Haile MD History obtained from records. Unable to obtain history from patient secondary to obtunded state. Medical history significant for CVA, hypertension, hyperlipidemia, seizure disorder, astrocytoma status post surgery/chemoradiation, traumatic brain as per records, GERD, hypothyroidism, chronic urticaria as per records, past tobacco abuse. Last confinement May 2022 for hyponatremia and E. coli UTI. Aspiration precautions during confinement. Recommended minced diet and moist IDDSI with mildly nectar thick liquids. Patient started on Keflex at intermediate last week for great toe infection. Patient noted to be not less responsive today. Subsequent nausea and emesis. Noted to be hypoxemic. Patient brought to ER for evaluation. Patient unable to answer questions regarding headache, chest pain, SOB, cough, abdominal pain, dysuria symptoms. Vancomycin and cefepime administered at the ER. Medical History as above Surgical History : Carpal tunnel surgery, right frontal lobectomy, D&C, BTL, for holding, tonsillectomy Family History : Heart disease, hyperthyroidism Personal/Social history : Past tobacco abuse, no EtOH intake, intermediate resident Allergies Allergy/AdvReac Type Severity Reaction Status Date / Time Penicillins Allergy Intermediate HIVES Verified 07/14/22 20:09 cimetidine Allergy Unknown ON WIND Verified 07/14/22 20:09 [facility] erythromycin base Allergy Unknown ON Verified 07/14/22 20:09 [facility] phenytoin AdvReac Intermediate HIVES Verified 07/14/22 20:09 Home Medications Medication Instructions Recorded Confirmed Type acetaminophen 325 mg capsule 650 mg PO Q4 PRN Fever Or Pain 06/06/18 07/14/22 History (Tylenol) cholecalciferol (vitamin D3) 25 1,000 unit PO QAM 06/06/18 07/14/22 History mcg (1,000 unit) capsule (Vitamin D3) cyanocobalamin (vitamin B-12) 500 500 mcg PO QAM 06/06/18 07/14/22 History mcg tablet (Vitamin B-12) gabapentin 300 mg capsule 300 mg PO HS 06/06/18 07/14/22 History (Neurontin) levothyroxine 50 mcg tablet 50 mcg PO DAILYBB 06/06/18 07/14/22 History (Synthroid) linaclotide 72 mcg capsule 72 mcg PO HS 06/06/18 07/14/22 History (Linzess) multivitamin 1 tab PO QAM 06/06/18 07/14/22 History acetaminophen 500 mg tablet 500 mg PO TID 12/20/18 07/14/22 History cetyl and stearate 1 applic topical AMPM 12/20/18 07/14/22 History alcohol-propylen glycol-sls topical cream (Cetaphil topical cream) amlodipine 5 mg tablet (Norvasc) 2.5 mg PO QAM 12/19/20 07/14/22 History aspirin 81 mg tablet,delayed 81 mg PO QAM 12/19/20 07/14/22 History release cetirizine 10 mg tablet 10 mg PO BID 12/19/20 07/14/22 History modafinil 200 mg tablet 200 mg PO QAM 12/19/20 07/14/22 History omega 6-kla-hca-fish oil 1,200 mg 1 cap PO DAILY 12/19/20 07/14/22 History (144 mg-216 mg) capsule (Fish Oil) omeprazole 20 mg capsule,delayed 20 mg PO DAILYBB 12/19/20 07/14/22 History release potassium chloride 20 mEq 20 meq PO BID 12/19/20 07/14/22 History tablet,extended release rosuvastatin 40 mg tablet 40 mg PO HS 12/19/20 07/14/22 History sennosides 8.6 mg-docusate sodium 2 tab-cap PO BID 12/19/20 07/14/22 History 50 mg tablet (Senna Plus) miconazole nitrate 2 % topical 1 applic topical BID 06/04/22 07/14/22 History powder mirtazapine 15 mg tablet 15 mg PO HS 06/04/22 07/14/22 History neomycin-bacitracn Zn-polymyx 3.5 1 applic topical DAILY 06/04/22 07/14/22 History mg-400 unit-5,000 unit/gram top oint (Antibiotic(fkzhg-[id number]-tyxjq)) Magic Mix 1 applic topical TID 07/14/22 07/14/22 History Theracalazinc 1 applic topical TID 07/14/22 07/14/22 History carbamazepine 200 mg 200 mg PO BID 07/14/22 07/14/22 History capsule,extended release [id number] cephalexin 500 mg capsule 500 mg PO TID 07/14/22 07/14/22 History ketoconazole 2 % topical cream 1 applic topical BID 07/14/22 07/14/22 History Past Med/Surg History Medical History Anxiety Benign paroxysmal positional vertigo, bilateral Chronic urticaria Depression Essential hypertension Fibromyalgia GERD (gastroesophageal reflux disease) History of astrocytoma s/p craniotomy/XRT/chemo History of peptic ulcer disease History of seizure disorder Hyperlipidemia Hypothyroidism Irritable bowel syndrome Left hemiparesis Osteoarthritis Stroke-like symptoms Surgical History History of carpal tunnel surgery of right wrist History of craniotomy History of D&C History of tubal ligation Family History Sister Family history of reaction to anesthesia Social History Smoking Status: Unknown if ever smoked Tobacco Type: Cigarettes Do You Dip or Chew Tobacco: No; Hx Alcohol Use: Yes Hx Substance Use: No Preferred Language: [place]ian Communication Ability: Unable Naturopathic Oncology Provider Required: No Beliefs That Will Affect Care: None marital status: Current Living Situation: Retirement Current Living Situation Comment: [facility] current occupational status: unemployed Feels Safe at Home: Yes Safety Concerns: Feels Safe At This Time Assistive Devices: Oxygen - Continuous Review of Systems Review of Systems: Could not be reliably obtained secondary to obtunded state Physical Exam Physical Exam: GENERAL: Obtunded, no respiratory distress SKIN: Normal color, warm HEENT: Alopecia, [place] palpebral conjunctivae, no ptosis, dry buccal mucosa, nasal cannula in place NECK : Supple, no tenderness CHEST : Decreased breath sounds, scattered crackles, no tenderness HEART : Tachycardic, no obvious murmurs ABDOMEN: Some distention, nontender EXTREMITIES : No LE swelling/tenderness, no other conspicuous deformities noted NEUROLOGIC : Obtunded, no facial asymmetry, gait and stance not assessed Results & Data Results & Data Vital Signs (Past 12 Hours) Vital Signs Temp Pulse Resp BP Pulse Ox O2 Del Method O2 Flow Rate 07/14/22 22:09 94 Nasal Cannula 4 07/14/22 19:22 98 H 22 123/87 100 4 07/14/22 20:29 88 L Nasal Cannula 4 07/14/22 20:08 99 H 07/14/22 19:25 39.1 C H 99 H 19 123/87 95 Nasal Cannula 6 Laboratory Results Laboratory Results WBC 4.28 K/ul (4.8-10.8) L 07/14/22 20:04 RBC 4.49 M/uL (4.20-5.40) 07/14/22 20:04 Hgb 14.7 g/dl (12.0-16.0) 07/14/22 20:04 Hct 47.2 % (37.0-47.0) H 07/14/22 20:04 MCV 105.1 fL (80.0-100.0) H 07/14/22 20:04 MCH 32.7 pg (25.0-34.0) 07/14/22 20:04 MCHC 31.1 g/dL (32.0-36.0) L 07/14/22 20:04 RDW Std Deviation 48.9 fL (36.4-46.3) H 07/14/22 20:04 RDW Coeff of Claudio 12.5 % (11.5-14.5) 07/14/22 20:04 Plt Count 132 K/uL (130-400) 07/14/22 20:04 MPV 10.3 fL (9.4-12.4) 07/14/22 20:04 Immature Gran % (Auto) 0.0 % 07/14/22 20:04 Neut % (Auto) 73.6 % 07/14/22 20:04 Lymph % (Auto) 19.9 % 07/14/22 20:04 Cook % (Auto) 6.3 % 07/14/22 20:04 Eos % (Auto) 0.0 % 07/14/22 20:04 Baso % (Auto) 0.2 % 07/14/22 20:04 Neut # (Auto) 3.15 K/uL (1.40-6.50) 07/14/22 20:04 Lymph # (Auto) 0.85 K/uL (1.2-3.4) L 07/14/22 20:04 Cook # (Auto) 0.27 K/uL (0.11-0.59) 07/14/22 20:04 Eos # (Auto) 0.00 K/uL (0-0.50) 07/14/22 20:04 Baso # (Auto) 0.01 K/uL (0-0.2) 07/14/22 20:04 Immature Gran # (Auto) 0.00 K/uL (0.01-0.20) L 07/14/22 20:04 ABG pH 7.33 (7.35-7.45) L 07/14/22 21:47 ABG pCO2 42 mmHg (35-46) 07/14/22 21:47 ABG pO2 73 mmHg (80-95) L 07/14/22 21:47 ABG HCO3 22 mmol/L (19-24) 07/14/22 21:47 ABG O2 Saturation 96.4 % (90-95) H 07/14/22 21:47 ABG Base Excess -3.7 mEq/L (-9-1.8) 07/14/22 21:47 Abimael Test Pos (Pos) 07/14/22 21:47 Oxygen Given FLOW RATE 4 07/14/22 21:47 Sodium 149 mmol/L (136-145) H 07/14/22 20:04 Potassium 4.3 mmol/L (3.5-5.1) 07/14/22 20:04 Chloride 113 mmol/L (98-107) H 07/14/22 20:04 Carbon Dioxide 25 mmol/L (21-32) 07/14/22 20:04 Anion Gap 11 (3-11) 07/14/22 20:04 BUN 23 mg/dl (6-23) 07/14/22 20:04 Creatinine 0.73 mg/dl (0.6-1.2) 07/14/22 20:04 Est Cr Clr Drug Dosing 67.8 ml/min 07/14/22 20:04 Est GFR ( Amer) 103.8 ml/min 07/14/22 20:04 Est GFR (Non-Af Amer) 89.5 ml/min 07/14/22 20:04 BUN/Creatinine Ratio 31.5 (10-20) H 07/14/22 20:04 Glucose 89 mg/dl (70-99(Fasting)) 07/14/22 20:04 POC Glucose 95 mg/dl (70-99) 07/14/22 19:15 Lactate 2.2 mmol/L (0.4-2.0) H* 07/14/22 21:47 Calcium 8.4 mg/dl (8.6-10.3) L 07/14/22 20:04 Magnesium 2.0 mg/dl (1.7-2.4) 07/14/22 20:04 Total Bilirubin 0.4 mg/dl (0.2-1.0) 07/14/22 20:04 Direct Bilirubin 0.1 mg/dl (0-0.2) 07/14/22 21:10 AST 52 U/L (13-39) H 07/14/22 20:04 ALT 18 U/L (7-52) 07/14/22 20:04 Alkaline Phosphatase 189 U/L (34-104) H 07/14/22 20:04 Troponin I High Sens 5.8 pg/ml (0-14) 07/14/22 20:04 Total Protein 6.2 gm/dl (6.0-8.3) 07/14/22 20:04 Albumin 3.0 gm/dl (3.4-5.0) L 07/14/22 20:04 Procalcitonin 47.52 ng/ml (0-0.5) H 07/14/22 20:04 Urine Color Dark Yellow 07/14/22 21:42 Urine Appearance Turbid (Clear) A 07/14/22 21:42 Urine pH 5.0 (4.5-7.5) 07/14/22 21:42 Ur Specific [place] 1.029 (1.000-1.030) 07/14/22 21:42 Urine Protein 2+ (Negative) H 07/14/22 21:42 Urine Glucose (UA) Negative (Negative) 07/14/22 21:42 Urine Ketones Negative (Negative) 07/14/22 21:42 Urine Blood Negative (Negative) 07/14/22 21:42 Urine Nitrite Negative (Negative) 07/14/22 21:42 Urine Bilirubin Negative (Negative) 07/14/22 21:42 Urine Urobilinogen Negative (Negative) 07/14/22 21:42 Ur Leukocyte Esterase Negative (Negative) 07/14/22 21:42 Carbamazepine 8.7 mcg/ml (4-12) 07/14/22 21:10 Adenovirus (PCR) Not Detected (NotDetected) 07/14/22 19:40 B. pertussis DNA (PCR) Not Detected (NotDetected) 07/14/22 19:40 B.parapertussis DNA PCR Not Detected (NotDetected) 07/14/22 19:40 C. pneumoniae DNA (PCR) Not Detected (NotDetected) 07/14/22 19:40 Coronavirus OC43 (PCR) Not Detected (NotDetected) 07/14/22 19:40 Coronavirus HKU1 (PCR) Not Detected (NotDetected) 07/14/22 19:40 Coronavirus 229E (PCR) Not Detected (NotDetected) 07/14/22 19:40 SARS-CoV-2 (PCR) Not Detected (NotDetected) 07/14/22 19:40 Coronavirus NL63 (PCR) Not Detected (NotDetected) 07/14/22 19:40 Human Metapneumovir PCR DETECTED (NotDetected) A* 07/14/22 19:40 Influenza Type A (PCR) Not Detected (NotDetected) 07/14/22 19:40 Influenza Type B (PCR) Not Detected (NotDetected) 07/14/22 19:40 M. pneumoniae (PCR) Not Detected (NotDetected) 07/14/22 19:40 Parainfluenza 1 (PCR) Not Detected (NotDetected) 07/14/22 19:40 Parainfluenza 2 (PCR) Not Detected (NotDetected) 07/14/22 19:40 Parainfluenza 3 (PCR) Not Detected (NotDetected) 07/14/22 19:40 Parainfluenza 4 (PCR) Not Detected (NotDetected) 07/14/22 19:40 RSV (PCR) Not Detected (NotDetected) 07/14/22 19:40 Entero/Rhino (PCR) Not Detected (NotDetected) 07/14/22 19:40 Impressions Chest X-Ray 07/14/22 19:38 SINGLE VIEW CHEST CLINICAL HISTORY: Sepsis. FINDINGS: An AP, portable, upright chest radiograph is compared to study dated 06/04/2022. The examination is degraded by portable technique and patient rotation. The cardiomediastinal silhouette is unremarkable. Chronic interstitial thickening is similar to previous. There is bibasilar sc arring/atelectasis. The lungs and pleural spaces are otherwise clear. No pneumothorax is seen. The skeletal structures are osteopenic. The bony thorax is grossly intact. Degenerative change is seen throughout the spine. IMPRESSION: No active disease in the chest. ACT 112: Negative or not required by law. Electronically signed by: Aditya Ramirez M.D. 07/14/2022 8:[address] 07/14/22 19:56 CT SCAN OF THE BRAIN WITHOUT IV CONTRAST CLINICAL HISTORY: Change in mental status. History of astrocytoma. COMPARISON STUDY: CT of the brain dated 06/04/2022. TECHNIQUE: Unenhanced axial CT scan of the brain is performed from the vertex to the skull base. A dose lowering technique was utilized adhering to the principles of ALARA. The patient was scanned twice due to motion artifact. FINDINGS: Brain parenchyma: Right frontal encephalomalacia is unchanged and consistent with a site of previous surgery. Right basal ganglia calcifications are unchange d. There is age-related involutional change noting moderate subcortical and periventricular microangiopathic disease. There is no hemorrhage, mass effect, or evidence of acute territorial ischemia by CT criteria. A chronic lacunar infarct is noted in the left thalamus. Miller-white matter differentiation is preserved. No extra-axial fluid collection is seen. Ventricles, sulci, cisterns: Prominent secondary to involutional change. Intracranial vasculature: There is atherosclerotic calcification of the cavernous carotid and vertebral arteries. Calvarium: The skeletal structures are heterogeneously osteopenic. There is postsurgical change from right-sided craniotomy. No destructive calvarial lesion is identified. Sinuses and mastoids: There is mild mucosal thickening in the right maxillary antrum in the right anterior ethmoid sinuses. There is subtotal opacification of the right frontal sinus. The mastoid air cells are well pneumatized. Orbits: The bony orbits are grossly intact. IMPRESSION: Chronic and postsurgical changes as above with no hemorrhage, mass effect, or evidence of acute territorial ischemia by CT criteria. No significant change as compared to prior studies. ACT 112: Negative or not required by law. Electronically signed by: Aditya Ramirez M.D. 07/14/2022 8:[address] abdomen pelvis: 1. Airspace opacities at the lung bases. Appearance concerning for a component of pneumonia. 2. Mild colonic mucosal thickening consistent with nonspecific colitis. Diagnostic Findings EKG as per my interpretation : Rate 100, NSR, LAD, LAFB, multiple artifacts, low voltage
[2022-07-14] MEDS ORDERED: PROMETHAZINE HCL 6.25 MG in SODIUM CHLORIDE 0.9% 50 ML IV PRN (22:16)
[2022-07-14 22:19] LABS: Amorphous Sediment Urine Present (None Prsent); Renal Epithelial Cells Urine 0-5 /lpf (0-5)
[2022-07-14] MEDS ORDERED: PROMETHAZINE 6.25 MG/50.25 ML NSS IV ONE (23:12)
[2022-07-14] MEDS ORDERED: OPTIRAY 320 500ml IV ONE (23:42)
--- NOTE | 2022-07-15 00:19 | CT Scan Report ---
Exam(s): CT ABDOMEN + PELVIS With Contrast IV Amt: 90ml Optiray 320 EXAM: CT Abdomen and Pelvis With Intravenous Contrast CLINICAL HISTORY: Reason for exam: vomiting, sepsis. TECHNIQUE: Axial computed tomography images of the abdomen and pelvis with intravenous contrast. CTDI is 10.41 mGy and DLP is 553.05 mGy-cm. Automated exposure control was utilized for the study. A dose lowering technique was utilized adhering to the principles of ALARA. CONTRAST: Patient received 90ml Optiray 320 of IV contrast COMPARISON: No relevant prior studies available. FINDINGS: Lung bases: Airspace opacities at the lung bases. Appearance concerning for a component of pneumonia. ABDOMEN: Liver: Unremarkable. Gallbladder and bile ducts: Unremarkable. Pancreas: Unremarkable. Spleen: Unremarkable. Adrenals: Unremarkable. Kidneys and ureters: Unremarkable. No obstructing stones. No hydronephrosis. Stomach and bowel: Mild colonic mucosal thickening consistent with nonspecific colitis. No bowel obstruction. No perforation. PELVIS: Appendix: No findings to suggest acute appendicitis. Bladder: Johnson catheter within the bladder. Reproductive: Unremarkable as visualized. ABDOMEN and PELVIS: Intraperitoneal space: Unremarkable. No free air. No significant fluid collection. Bones/joints: Age indeterminate superior endplate fracture at L1 which is favored chronic. Bones are osteopenic. Soft tissues: Unremarkable. Vasculature: Unremarkable. Lymph nodes: Unremarkable. IMPRESSION: 1. Airspace opacities at the lung bases. Appearance concerning for a component of pneumonia. 2. Mild colonic mucosal thickening consistent with nonspecific colitis. Electronically signed by: Jax Hu MD 07/15/22 00:18 AM
[2022-07-15] MEDS ORDERED: ERTAPENEM SODIUM 1,000 MG in SYRINGE 0 ML IV SCH (01:30)
[2022-07-15] MEDS ORDERED: SODIUM CHLORIDE 0.45 % 1,000 ML IV SCH ×2 (02:00→15:30)
[2022-07-15] MEDS ORDERED: metroNIDAZOLE 500 MG/100 ML BAG IV STA (02:37)
[2022-07-15 04:38] LABS: Basophils # (auto) 0.01 K/uL (0-0.2); Basophils % (auto) 0.2 %; Hematocrit (blood only) 41.3 % (37.0-47.0); Immature Granulocytes # (auto) 0.01 K/uL (0.01-0.20); Immature Granulocytes % (auto) 0.2 %; Lymphocytes # (auto) 0.56 K/uL (1.2-3.4); Lymphocytes % (auto) 13.5 %; Mean Corpuscular Hgb Conc 31.5 g/dL (32.0-36.0); Mean Corpuscular Volume 104.8 fL (80.0-100.0); Mean Platelet Volume 10.1 fL (9.4-12.4); Monocytes # (auto) 0.13 K/uL (0.11-0.59); Monocytes % (auto) 3.1 %; Neutrophils # (auto) 3.44 K/uL (1.40-6.50); Platelet Count 108 K/uL (130-400); RDW Coefficient of Variation 12.5 % (11.5-14.5); RDW Standard Deviation 48.4 fL (36.4-46.3); Red Blood Count 3.94 M/uL (4.20-5.40); White Blood Count 4.15 K/ul (4.8-10.8)
[2022-07-15 04:54] LABS: BUN Creatinine Ratio 31.1 (10-20); Calcium 6.9 mg/dl (8.6-10.3); Creatinine Clr Calc Pharmacy 81.1 ml/min; Est GFR (African American) 114.2 ml/min; Est GFR (Non-African American) 98.5 ml/min; Potassium 3.7 mmol/L (3.5-5.1)
[2022-07-15 05:08] LABS: Thyroid Stimulating Hormone 0.076 uIu/ml (0.300-4.500)
[2022-07-15 05:43] LABS: T4 Free Thyroxine 0.9 ng/dl (0.61-1.60)
[2022-07-15] MEDS: LEVOTHYROXINE SODIUM 50 MCG TABLET PO SCH (05:58)
[2022-07-15] MEDS: PANTOprazole 40 MG TAB PO SCH (05:58)
[2022-07-15] MEDS ORDERED: CLINDAMYCIN/D5W 600 MG/50 ML BAG IV SCH (06:00)
[2022-07-15] MEDS ORDERED: SODIUM CHLORIDE 0.45 % 1,000 ML IV ONE (06:22)
[2022-07-15] MEDS: POTASSIUM CHLORIDE / WTR 10 MEQ/100 ML PLCT IV SCH ×4 (06:47→10:42)
[2022-07-15] MEDS ORDERED: VANCOMYCIN CONSULT ACTIVE PRN ×2 (07:49→08:08)
[2022-07-15] MEDS ORDERED: VANCOMYCIN HCL 750 MG in SODIUM CHLORIDE 0.9% 500 ML IV SCH (08:15)
[2022-07-15] MEDS ORDERED: MEROPENEM 1,000 MG in SYRINGE 0 ML IV SCH (08:15)
[2022-07-15] MEDS ORDERED: XOPENEX/ATROVENT 1.25mg/0.5MG NEB COMBO NEB SCH (08:20)
[2022-07-15] MEDS: MULTIVITAMIN TAB PO SCH (08:42)
[2022-07-15] MEDS: CYANOCOBALAMIN (B-12) 500 MCG TABLET PO SCH (08:42)
--- NOTE | 2022-07-15 08:47 | Hospitalist Progress Note ---
Date of Service July 15, 2022 Assessment & Plan (1) Severe sepsis: Plan: Metabolic encephalopathy Admission and Anticipated Discharge Date Admission Date: July 14, 2022 Results & Data Results & Data Vital Signs (Past 12 Hours) Vital Signs Temp Pulse Pulse Resp BP BP Pulse Ox 07/15/22 07:41 36.9 C 77 18 90/61 L 90 07/15/22 07:26 81 07/15/22 04:45 36.6 C 104 H 18 93/62 L 93 07/15/22 03:56 36.5 C 86 18 97/65 L 97 07/14/22 22:00 101 H 22 112/72 96 07/14/22 21:00 98 H 12 110/75 99 07/14/22 22:09 94 O2 Del Method O2 Flow Rate 07/15/22 07:41 Nasal Cannula 4 07/15/22 07:26 07/15/22 04:45 Nasal Cannula 4 07/15/22 03:56 Nasal Cannula 4 07/14/22 22:00 Aerosol Mask 07/14/22 21:00 07/14/22 22:09 Aerosol Mask 4
--- NOTE | 2022-07-15 08:55 | Pharmacy Report ---
Pharmacy PK ABX Note - Date of Service July 15, 2022 - Assessment and Plan Assessment 61 year old F started on vancomycin and meropenem for concerns for sepsis/aspiration pneumonia/HCAP/UTI. Had been on keflex prior to admission for toe infection. PMHx significant for CVA, seizure disorder, astrocytoma s/p surgery/chemoradiation, traumatic brain injury. Per notes, she resides in assisted and was not responding verbally as she normally does so was sent to hospital for evaluation. She had subsequent nausea/vomiting in ER. CT of lung concerning for possible pneumonia, also potential nonspecific colitis per report. Recent hospitalization 06/04-06/07 for hypernatremia. Febrile on admission, elevated procalcitonin - blood cultures and urine culture pending, positive MRSA swab. Day #2 of vancomycin antimicrobial therapy. Plan Vancomycin * Loading dose: 1250 mg iv x 1 given last evening * Maintenance dose: 1000 mg IV every 12 hours * Regimen is predicted to achieve target AUC/LAWRENCE of 400-600 mg/L.hr * Plan to order random level tomorrow AM for vancomycin to ensure dosing appropriate Pharmacy will continue to follow and will adjust dose/frequency as necessary. Thank you. Pharmacy has transitioned to AUC monitoring for vancomycin. AUC/LAWRENCE is the preferred PK/PD target and is associated with decreased risk of nephrotoxicity compared to traditional trough targets.
[2022-07-15] MEDS ORDERED: amLODIPine BESYLATE 5 MG TAB PO SCH (09:00)
[2022-07-15] MEDS: VANCOMYCIN HCL 1,000 MG in SODIUM CHLORIDE 0.9% 250 ML IV SCH ×2 (09:14→21:12)
[2022-07-15] MEDS: MEROPENEM 500 MG in SYRINGE 0 ML IV SCH ×3 (09:15→21:12)
[2022-07-15] MEDS: LEVALBUTEROL 1.25 MG/3 ML NEB NEB SCH ×3 (09:51→19:51)
[2022-07-15] MEDS: IPRATROPIUM BROMIDE NEB SOLN 0.02% 2.5 ML VIAL INH SCH ×3 (09:51→19:51)
[2022-07-15] MEDS: SODIUM CHLOR 7% 4 ML NEB NEB SCH ×2 (09:51→19:51)
--- NOTE | 2022-07-15 13:00 | Hospitalist Progress Note ---
Date of Service July 15, 2022 Assessment & Plan (1) Severe sepsis: Plan: 61-year-old female with CVA, hypertension, hyperlipidemia, seizure disorder, astrocytoma status post surgery/chemoradiation, traumatic brain as per records, GERD, hypothyroidism, chronic urticaria as per records, past tobacco abuse presenting with altered mental status (1) Severe sepsis, metabolic encephalopathy likely secondary to bilateral pneumonia, UTI Plan: SIRS plus lactic acidosis plus encephalopathy plus hypoxemia Possible sources Aspiration pneumonia/HCAP, positive MRSA nasal swab Complicated UTI Colitis on CT rule out C. difficile given recent Keflex Rx for toe infection Patient was unresponsive on admission overnight, currently awake and alert, answering some questions Afebrile since last night, blood pressure on the lower side CT abdomen pelvis: 1. Airspace opacities at the lung bases. Appearance concerning for a component of pneumonia. 2. Mild colonic mucosal thickening consistent with nonspecific colitis. Nasal MRSA swab: Positive Urine culture: Pending Blood cultures: Pending Continue with vancomycin plus meropenem day #1 Nebs 4 times daily Continue IV half NSS hx CVA hypertension, BP on the lower side, on IV fluids hyperlipidemia, on statin Rx seizure disorder on Tegretol hx astrocytoma status post surgery/chemoradiation traumatic brain as per records GERD on PPI hypothyroidism, TSH from 2 months ago noted to be low TSH 0.07, free T41.9-subclinical hyperthyroidism Follow-up as an outpatient past tobacco abuse DVT prophylaxis. SCDs Re: hx Brain tumor Full code as per patient's prior directives. Disposition Pending, return to assisted facility when medically stable Admission and Anticipated Discharge Date Admission Date: July 14, 2022 Subjective Follow-up for sepsis, metabolic encephalopathy, etc. Seen sitting up in bed, not in distress, awake and alert, not in distress, on 2 L of oxygen by nasal cannula Patient confused, occasionally answering some question No signs of distress, pain Denies shortness of breath, chest pain, abdominal pain Discussed with RN at the bedside, no other issues noted today Review of Systems Review of Systems: all noted and negative except for above Physical Exam Physical Exam: General-not oriented, but awake and alert, appears somewhat weak, not in distress, speaks in phrases with no effort or accessory muscle use Eyes- anicteric Neck- no JVD Lungs- crackles bilateral bases, no wheezing, good air entry bilaterally Heart- normal rate, regular rhythm; no murmurs Abdomen- normal bowel sounds, nondistended, soft, nontender Extremities- no pretibial edema, no calf tenderness Neuro- alert, oriented, diffuse weakness in all extremities, around 3-4 out of 5 motor strength Skin- warm & dry Results & Data Results & Data Vital Signs (Past 12 Hours) Vital Signs Temp Pulse Pulse Resp BP Pulse Ox O2 Del Method 07/15/22 11:28 37.1 C 76 16 98/61 L 94 Nasal Cannula 07/15/22 09:52 73 16 97 Nasal Cannula 07/15/22 07:41 36.9 C 77 18 90/61 L 90 Nasal Cannula 07/15/22 07:26 81 07/15/22 04:45 36.6 C 104 H 18 93/62 L 93 Nasal Cannula 07/15/22 03:56 36.5 C 86 18 97/65 L 97 Nasal Cannula O2 Flow Rate 07/15/22 11:28 4 07/15/22 09:52 4 07/15/22 07:41 4 07/15/22 07:26 07/15/22 04:45 4 07/15/22 03:56 4
[2022-07-15 17:29] LABS: BUN Creatinine Ratio 32.7 (10-20); Calcium 7.1 mg/dl (8.6-10.3); Creatinine Clr Calc Pharmacy 95.2 ml/min; Est GFR (African American) 120.4 ml/min; Est GFR (Non-African American) 103.9 ml/min; Potassium 4.3 mmol/L (3.5-5.1)
[2022-07-15] MEDS: ROSUVASTATIN CALCIUM 20 MG TAB PO SCH (21:11)
[2022-07-16] MEDS: IPRATROPIUM BROMIDE NEB SOLN 0.02% 2.5 ML VIAL INH SCH ×4 (00:26→19:54)
[2022-07-16] MEDS: LEVALBUTEROL 1.25 MG/3 ML NEB NEB SCH ×4 (00:27→19:54)
[2022-07-16] MEDS: MEROPENEM 500 MG in SYRINGE 0 ML IV SCH ×4 (02:44→20:49)
[2022-07-16] MEDS ORDERED: SODIUM CHLORIDE 0.45 % 1,000 ML IV SCH (03:00)
--- NOTE | 2022-07-16 05:37 | Electrocardiogram Report ---
Test Reason : Blood Pressure : / mmHG Vent. Rate : 099 BPM Atrial Rate : 099 BPM P-R Int : 112 ms QRS Dur : 068 ms QT Int : 344 ms P-R-T Axes : -01 -20 035 degrees QTc Int : 442 ms Poor data quality, interpretation may be adversely affected Normal sinus rhythm Low voltage QRS Possible Anterior infarct Possible Inferior infarct Nonspecific T wave abnormality Abnormal ECG When compared with ECG of 04-JUN-2022 11:55, No significant change Confirmed by Radhames Gan ([id number]) on 07/16/2022 5:36:44 AM Referred By: REFERRED SELF Confirmed By:Radhames Gan
[2022-07-16] MEDS: LEVOTHYROXINE SODIUM 50 MCG TABLET PO SCH (06:21)
[2022-07-16] MEDS: PANTOprazole 40 MG TAB PO SCH (06:21)
[2022-07-16 06:58] LABS: Hematocrit (blood only) 37.7 % (37.0-47.0); Hemoglobin 12.2 g/dl (12.0-16.0); Immature Granulocytes # (auto) 0.01 K/uL (0.01-0.20); Immature Granulocytes % (auto) 0.3 %; Lymphocytes # (auto) 1.12 K/uL (1.2-3.4); Lymphocytes % (auto) 32.6 %; Mean Corpuscular Hemoglobin 32.9 pg (25.0-34.0); Mean Corpuscular Hgb Conc 32.4 g/dL (32.0-36.0); Mean Corpuscular Volume 101.6 fL (80.0-100.0); Mean Platelet Volume 10.7 fL (9.4-12.4); Monocytes # (auto) 0.15 K/uL (0.11-0.59); Monocytes % (auto) 4.4 %; Neutrophils # (auto) 2.16 K/uL (1.40-6.50); Neutrophils % (auto) 62.7 %; Platelet Count 103 K/uL (130-400); RDW Coefficient of Variation 12.2 % (11.5-14.5); Red Blood Count 3.71 M/uL (4.20-5.40); White Blood Count 3.44 K/ul (4.8-10.8)
[2022-07-16 07:14] LABS: BUN Creatinine Ratio 22.4 (10-20); Calcium 7.3 mg/dl (8.6-10.3); Creatinine Clr Calc Pharmacy 85.3 ml/min; Est GFR (African American) 116.1 ml/min; Est GFR (Non-African American) 100.2 ml/min; Potassium 3.6 mmol/L (3.5-5.1)
[2022-07-16] MEDS: SODIUM CHLOR 7% 4 ML NEB NEB SCH (07:49)
[2022-07-16] MEDS ORDERED: VANCOMYCIN LEVEL ONE (08:30)
--- NOTE | 2022-07-16 08:56 | Pharmacy Report ---
Pharmacy PK ABX Note - Date of Service July 16, 2022 - Assessment and Plan Assessment 07/16/22: * Preliminary blood cultures and urine culture no growth, continues on oxygen 3 L/min this AM, Cdiff negative, lactate trending down * Continues on broad spectrum abx with vancomycin and meropenem 07/15/22: * 61 year old F started on vancomycin and meropenem for concerns for sepsis/aspiration pneumonia/HCAP/UTI. Had been on keflex prior to admission for toe infection. PMHx significant for CVA, seizure disorder, astrocytoma s/p surgery/chemoradiation, traumatic brain injury. Per notes, [facility] and was not responding verbally as she normally does so was sent to hospital for evaluation. She had subsequent nausea/vomiting in ER. CT of lung concerning for possible pneumonia, also potential nonspecific colitis per report. Recent hospitalization 06/04-06/07 for hypernatremia. Febrile on admission, elevated procalcitonin - blood cultures and urine culture pending, positive MRSA swab. Day #3 of vancomycin antimicrobial therapy. Plan Vancomycin * Random vancomycin level this AM was ~19 mcg/ml - currently receiving vancomycin 1 gm iv q 12 hr. Based upon level, this dosing for vancomycin is estimated to achieve AUC/LAWRENCE >600 therefore will scale back on dosing and decrease to 750 mg iv q 12 hrs * Regimen is predicted to achieve target AUC/LAWRENCE of 400-600 mg/L.hr and produce a trough level of ~16 mcg/ml * Will plan to order another level in 2-3 days or sooner if renal function changes Pharmacy has transitioned to AUC monitoring for vancomycin. AUC/LAWRENCE is the preferred PK/PD target and is associated with decreased risk of nephrotoxicity compared to traditional trough targets.
[2022-07-16] MEDS: SODIUM CHLORIDE 0.45 % 1,000 ML IV SCH ×2 (09:24→19:29)
[2022-07-16] MEDS: CYANOCOBALAMIN (B-12) 500 MCG TABLET PO SCH (09:24)
[2022-07-16] MEDS: MULTIVITAMIN TAB PO SCH (09:25)
[2022-07-16] MEDS: VANCOMYCIN HCL 750 MG in SODIUM CHLORIDE 0.9% 250 ML IV SCH ×2 (09:25→20:55)
[2022-07-16] MEDS: guaiFENesin SUGAR FREE 200 MG/10 ML UDC PO SCH ×2 (14:20→20:42)
--- NOTE | 2022-07-16 17:41 | Hospitalist Progress Note ---
Date of Service July 16, 2022 Assessment & Plan (1) Severe sepsis: Plan: 61-year-old female with CVA, hypertension, hyperlipidemia, seizure disorder, astrocytoma status post surgery/chemoradiation, traumatic brain as per records, GERD, hypothyroidism, chronic urticaria as per records, past tobacco abuse presenting with altered mental status (1) Severe sepsis, metabolic encephalopathy likely secondary to bilateral pneumonia, UTI Plan: SIRS plus lactic acidosis plus encephalopathy plus hypoxemia + metapneumovirus (on biofire) nausea/vomiting on admission poss. Aspiration pneumonia/HCAP, positive MRSA nasal swab initially though poss. Complicated UTI - u cultx - negative Colitis on CT rule out C. difficile given recent Keflex Rx for toe infection c. diff negative stool pcr pending Blood cultures: negative in 24 hrs Patient was unresponsive on admission overnight, currently awake and alert, answering some questions Afebrile now, blood pressure still on the lower side CT abdomen pelvis: 1. Airspace opacities at the lung bases. Appearance concerning for a component of pneumonia. 2. Mild colonic mucosal thickening consistent with nonspecific colitis. Continue with vancomycin plus meropenem day #2 Nebs 4 times daily Continue IV half NSS given hypernatremia Sodium now improved, pt w/ poor oral intake hx CVA hypertension, BP on the lower side, on IV fluids hyperlipidemia, on statin Rx seizure disorder on Tegretol hx astrocytoma status post surgery/chemoradiation traumatic brain as per records GERD on PPI hypothyroidism, TSH from 2 months ago noted to be low TSH 0.07, free T41.9-subclinical hyperthyroidism Follow-up as an outpatient past tobacco abuse DVT prophylaxis. SCDs Re: hx Brain tumor DNR/DNI per admitting provider's discussion w/family Disposition Pending[facility] Admission and Anticipated Discharge Date Admission Date: July 14, 2022 Subjective Follow-up for sepsis, metabolic encephalopathy, hypoxia , + metapneumovirus , poss. asp. pna, colitis, n/v on admission Seen sitting up in bed, not in distress, awake and alert, not in distress, on 2- 3 L of oxygen by nasal cannula Patient is able to answer some questions No signs of distress, pain Denies shortness of breath, chest pain, abdominal pain Review of Systems Review of Systems: All systems reviewed & are unremarkable except as noted in Subjective Physical Exam Physical Exam: General- awake and alert, chronically ill appearing, appears weak, not in distress Eyes- anicteric Neck- no JVD Lungs- crackles bilateral bases, no wheezing, good air entry bilaterally Heart- normal rate, regular rhythm; no murmurs Abdomen- normal bowel sounds, nondistended, soft, nontender Extremities- no pretibial edema Neuro- awake, alert, answering some questions appropriately, + generalized weakness Skin- warm & dry Results & Data Results & Data Vital Signs (Past 12 Hours) Vital Signs Temp Pulse Pulse Resp BP Pulse Ox O2 Del Method 07/16/22 16:52 Nasal Cannula 07/16/22 15:49 93 H 07/16/22 15:34 37.3 C 96 H 18 99/69 L 90 Nasal Cannula 07/16/22 13:27 95 H 18 90 Nasal Cannula 07/16/22 11:20 36.7 C 66 18 91/69 L 95 Nasal Cannula 07/16/22 10:45 102 H 07/16/22 07:51 36.5 C 98 H 18 94/62 L 92 Nasal Cannula 07/16/22 07:49 99 H 18 92 Nasal Cannula O2 Flow Rate 07/16/22 16:52 3 07/16/22 15:49 07/16/22 15:34 3 07/16/22 13:27 2 07/16/22 11:20 3 07/16/22 10:45 07/16/22 07:51 3 07/16/22 07:49 3 Laboratory Results 07/16/22 07/16/22 07/16/22 Range/Units 06:31 06:31 06:31 WBC 3.44 L (4.8-10.8) K/ul RBC 3.71 L (4.20-5.40) M/uL Hgb 12.2 (12.0-16.0) g/dl Hct 37.7 (37.0-47.0) % MCV 101.6 H (80.0-100.0) fL MCH 32.9 (25.0-34.0) pg MCHC 32.4 (32.0-36.0) g/dL RDW Std Deviation 46.0 (36.4-46.3) fL RDW Coeff of Claudio 12.2 (11.5-14.5) % Plt Count 103 L (130-400) K/uL MPV 10.7 (9.4-12.4) fL Immature Gran % (Auto) 0.3 % Neut % (Auto) 62.7 % Lymph % (Auto) 32.6 % [place] % (Auto) 4.4 % Eos % (Auto) 0.0 % Baso % (Auto) 0.0 % Neut # (Auto) 2.16 (1.40-6.50) K/uL Lymph # (Auto) 1.12 L (1.2-3.4) K/uL [place] # (Auto) 0.15 (0.11-0.59) K/uL Eos # (Auto) 0.00 (0-0.50) K/uL Baso # (Auto) 0.00 (0-0.2) K/uL Immature Gran # (Auto) 0.01 (0.01-0.20) K/uL Sodium 142 (136-145) mmol/L Potassium 3.6 (3.5-5.1) mmol/L Chloride 111 H (98-107) mmol/L Carbon Dioxide 23 (21-32) mmol/L Anion Gap 8 (3-11) BUN 13 (6-23) mg/dl Creatinine 0.58 L (0.6-1.2) mg/dl Est Cr Clr Drug Dosing 85.3 ml/min Est GFR ( Amer) 116.1 ml/min Est GFR (Non-Af Amer) 100.2 ml/min BUN/Creatinine Ratio 22.4 H (10-20) Glucose 62 L (70-99(Fasting)) mg/dl Calcium 7.3 L (8.6-10.3) mg/dl Stl C. diff Tox B Gene (Neg) Random Vancomycin 19.9 (10-20) mcg/ml 07/15/22 Range/Units 14:44 WBC (4.8-10.8) K/ul RBC (4.20-5.40) M/uL Hgb (12.0-16.0) g/dl Hct (37.0-47.0) % MCV (80.0-100.0) fL MCH (25.0-34.0) pg MCHC (32.0-36.0) g/dL RDW Std Deviation (36.4-46.3) fL RDW Coeff of Claudio (11.5-14.5) % Plt Count (130-400) K/uL MPV (9.4-12.4) fL Immature Gran % (Auto) % Neut % (Auto) % Lymph % (Auto) % [place] % (Auto) % Eos % (Auto) % Baso % (Auto) % Neut # (Auto) (1.40-6.50) K/uL Lymph # (Auto) (1.2-3.4) K/uL [place] # (Auto) (0.11-0.59) K/uL Eos # (Auto) (0-0.50) K/uL Baso # (Auto) (0-0.2) K/uL Immature Gran # (Auto) (0.01-0.20) K/uL Sodium (136-145) mmol/L Potassium (3.5-5.1) mmol/L Chloride (98-107) mmol/L Carbon Dioxide (21-32) mmol/L Anion Gap (3-11) BUN (6-23) mg/dl Creatinine (0.6-1.2) mg/dl Est Cr Clr Drug Dosing ml/min Est GFR ( Amer) ml/min Est GFR (Non-Af Amer) ml/min BUN/Creatinine Ratio (10-20) Glucose (70-99(Fasting)) mg/dl Calcium (8.6-10.3) mg/dl Stl C. diff Tox B Gene Negative Cdiff Gene (Neg) Random Vancomycin (10-20) mcg/ml Medications Administered Current Inpatient Medications Carbamazepine (Carbamazepine 200 Mg Tabcr) 200 mg PO BID [facility] Stop: 08/14/22 08:59 Last Admin: 07/16/22 09:24 Dose: 200 mg Cyanocobalamin (Cyanocobalamin (B-12) 500 Mcg Tablet) 500 mcg PO QAM [facility] Stop: 08/14/22 08:59 Last Admin: 07/16/22 09:24 Dose: 500 mcg Guaifenesin (Guaifenesin Sugar Free 200 Mg/10 Ml Udc) 200 mg PO Q6H [facility] Stop: 08/15/22 13:14 Last Admin: 07/16/22 14:20 Dose: Not Given Acetaminophen (Ofirmev) 1,000 mg in 100 mls @ 400 mls/hr IV Q8H PRN PRN Reason: fever/pain Stop: 07/17/22 22:15 Promethazine HCl 6.25 mg/ (Sodium Chloride) 50.25 mls @ 201 mls/hr IV Q6H PRN PRN Reason: Nausea And Vomiting Stop: 08/13/22 22:15 Last Infusion: 07/15/22 07:36 Dose: Infused Ertapenem 1,000 mg/ Syringe 10 mls @ 2 mls/min IV Q24H [facility] Stop: 07/22/22 01:29 Last Admin: 07/15/22 01:51 Dose: 2 mls/min Sodium Chloride (1/2 Nss) 1,000 mls @ 100 mls/hr IV .Q10H [facility] Stop: 08/15/22 07:29 Last Admin: 07/16/22 09:24 Dose: 100 mls/hr Meropenem 500 mg/ Syringe 10 mls @ 2 mls/min IV Q6H [facility]; Protocol Stop: 07/22/22 08:59 Last Admin: 07/16/22 15:36 Dose: 2 mls/min Vancomycin HCl 750 mg/ Sodium (Chloride) 265 mls @ 200 mls/hr IV Q12H [facility]; Protocol Stop: 07/23/22 08:59 Last Infusion: 07/16/22 11:31 Dose: Infused Ipratropium Metcalf (Ipratropium [place]calf Neb Soln 0.02% 2.5 Ml Vial) 0.5 mg INH Q6R [facility] Stop: 08/14/22 08:29 Last Admin: 07/16/22 13:25 Dose: 0.5 mg Lactobacillus Acidophilus (Advanced Probiotic 1250 Mg Capsule) 2 cap PO DAILY [facility] Stop: 08/15/22 17:44 Levalbuterol HCl (Levalbuterol 1.25 Mg/3 Ml Neb) 1.25 mg NEB Q6R [facility] Stop: 08/14/22 08:29 Last Admin: 07/16/22 13:25 Dose: 1.25 mg Levothyroxine Sodium (Levothyroxine Sodium 50 Mcg Tablet) 50 mcg PO DAILYBB [facility] Stop: 08/14/22 06:29 Last Admin: 07/16/22 06:21 Dose: 50 mcg Miscellaneous Information (Vancomycin Consult Active) 1 each N/A UD PRN PRN Reason: Consult Stop: 08/14/22 07:48 Multivitamins (Multivitamin Tab) 1 tab PO QAM [facility] Stop: 08/14/22 08:59 Last Admin: 07/16/22 09:25 Dose: 1 tab Pantoprazole Sodium (Pantoprazole 40 Mg Tab) 40 mg PO DAILYBB [facility] Stop: 08/14/22 06:29 Last Admin: 07/16/22 06:21 Dose: 40 mg Rosuvastatin Calcium (Rosuvastatin Calcium 20 Mg Tab) 40 mg PO HS [facility] Stop: 08/14/22 20:59 Last Admin: 07/15/22 21:11 Dose: 40 mg
[2022-07-16] MEDS ORDERED: ADVANCED PROBIOTIC 1250 MG CAPSULE PO SCH (17:45)
[2022-07-16] MEDS: LACTOBACILLUS ACIDOPHILUS 1 GM PACK PO SCH (20:42)
[2022-07-16] MEDS: ROSUVASTATIN CALCIUM 20 MG TAB PO SCH (20:50)
[2022-07-17] MEDS: guaiFENesin SUGAR FREE 200 MG/10 ML UDC PO SCH ×4 (01:15→19:01)
[2022-07-17] MEDS: IPRATROPIUM BROMIDE NEB SOLN 0.02% 2.5 ML VIAL INH SCH ×4 (01:41→18:57)
[2022-07-17] MEDS: LEVALBUTEROL 1.25 MG/3 ML NEB NEB SCH ×4 (01:41→18:57)
[2022-07-17] MEDS: ACETAMINOPHEN 1,000 MG/100 ML VIAL IV PRN ×2 (04:14→18:22)
[2022-07-17] MEDS: MEROPENEM 500 MG in SYRINGE 0 ML IV SCH ×4 (04:14→20:22)
[2022-07-17] MEDS: PANTOprazole 40 MG TAB PO SCH (05:45)
[2022-07-17] MEDS: SODIUM CHLORIDE 0.45 % 1,000 ML IV SCH (05:45)
[2022-07-17] MEDS: LEVOTHYROXINE SODIUM 50 MCG TABLET PO SCH (05:45)
[2022-07-17 07:46] LABS: Calcium 7.2 mg/dl (8.6-10.3); Magnesium 1.6 mg/dl (1.7-2.4); Potassium 3.2 mmol/L (3.5-5.1)
[2022-07-17 07:52] LABS: BUN Creatinine Ratio 21.4 (10-20); Creatinine Clr Calc Pharmacy 128.5 ml/min; Est GFR (African American) 129.1 ml/min; Est GFR (Non-African American) 111.4 ml/min; Phosphorus 1.8 mg/dl (2.5-4.9)
[2022-07-17 08:01] LABS: Hematocrit (blood only) 36.4 % (37.0-47.0); Hemoglobin 12.2 g/dl (12.0-16.0); Mean Corpuscular Hemoglobin 33.2 pg (25.0-34.0); Mean Corpuscular Hgb Conc 33.5 g/dL (32.0-36.0); Mean Corpuscular Volume 98.9 fL (80.0-100.0); Mean Platelet Volume 10.3 fL (9.4-12.4); Platelet Count 99 K/uL (130-400); Platelet Estimate Decreased (Normal); RDW Standard Deviation 43.8 fL (36.4-46.3); Red Blood Count 3.68 M/uL (4.20-5.40); White Blood Count 3.81 K/ul (4.8-10.8)
[2022-07-17] MEDS ORDERED: POTASSIUM CHLORIDE 20 MEQ/15 ML UDC PO STA (09:16)
[2022-07-17] MEDS ORDERED: POTASSIUM PHOS 3 MMOL/1 ML INFUSION IV STA (09:17)
--- NOTE | 2022-07-17 09:21 | Hospitalist Progress Note ---
Date of Service July 17, 2022 Assessment & Plan (1) Severe sepsis: Plan: 61-year-old female with CVA, hypertension, hyperlipidemia, seizure disorder, astrocytoma status post surgery/chemoradiation, traumatic brain as per records, GERD, hypothyroidism, chronic urticaria as per records, past tobacco abuse presenting with altered mental status (1) Severe sepsis, metabolic encephalopathy likely secondary to bilateral pneumonia, UTI Plan: SIRS plus lactic acidosis plus encephalopathy plus hypoxemia + metapneumovirus (on biofire) nausea/vomiting on admission poss. Aspiration pneumonia/HCAP, positive MRSA nasal swab initially thought poss. Complicated UTI - u cultx - negative Colitis on CT rule out C. difficile given recent Keflex Rx for toe infection c. diff negative stool pcr pending Blood cultures: negative in 24 hrs Patient was unresponsive on admission, currently awake and alert, answering questions appropriately Afebrile now, blood pressure still on the lower side CT abdomen pelvis: 1. Airspace opacities at the lung bases. Appearance concerning for a component of pneumonia. 2. Mild colonic mucosal thickening consistent with nonspecific colitis. Continue with vancomycin plus meropenem day #3 Nebs 4 times daily Continued IV half NSS since admission given hypernatremia, no IVF on hold Sodium now improved, pt w/ poor oral intake - oral intake improving hx CVA hypertension, BP on the lower side, on IV fluids hyperlipidemia, on statin Rx seizure disorder on Tegretol hx astrocytoma status post surgery/chemoradiation traumatic brain as per records GERD on PPI hypothyroidism, TSH from 2 months ago noted to be low TSH 0.07, free T41.9-subclinical hyperthyroidism Follow-up as an outpatient past tobacco abuse DVT prophylaxis. SCDs Re: hx Brain tumor DNR/DNI per admitting provider's discussion w/family Disposition Pending, return to group home facility when medically stable Admission and Anticipated Discharge Date Admission Date: July 14, 2022 Subjective Follow-up for sepsis, metabolic encephalopathy, hypoxia , + metapneumovirus , poss. asp. pna, colitis, n/v on admission Seen sitting up in bed, not in distress, awake and alert, on 2-3 L of oxygen by nasal cannula (sat. 99%) Patient is able to answer questions appropriately No signs of distress, pain Denies fever, chills, shortness of breath, chest pain, abdominal pain Ate breakfast this morning. Discussed with RN at the bedside, encouraged incentive spirometer and flutter valve Patient states that her daughter is coming and bringing her dentures today Review of Systems Review of Systems: All systems reviewed & are unremarkable except as noted in Subjective Physical Exam Physical Exam: General- awake and alert, chronically ill appearing, appears weak, not in distress, head tilted to the side (pt reports at baseline) Eyes- anicteric Neck- no JVD Lungs- + rhonchi, + crackles bilateral bases, no wheezing, good air entry bilaterally Heart- normal rate, regular rhythm; no murmurs Abdomen- normal bowel sounds, nondistended, soft, nontender Extremities- no pretibial edema Neuro- awake, alert, answering simple questions appropriately, + generalized weakness, L-sided hemiparesis Skin- warm & dry Results & Data Results & Data Vital Signs (Past 12 Hours) Vital Signs Temp Pulse Pulse Resp BP Pulse Ox O2 Del Method 07/17/22 08:00 36.7 C 75 20 91/64 L 99 Nasal Cannula 07/17/22 07:20 76 07/17/22 07:06 92 H 16 91 Nasal Cannula 07/17/22 02:42 38.1 C H 92 H 18 108/75 92 Nasal Cannula 07/17/22 01:42 84 18 94 Nasal Cannula 07/17/22 00:00 91 H 07/16/22 22:37 37.0 C 90 18 106/73 92 Nasal Cannula O2 Flow Rate 07/17/22 08:00 3 07/17/22 07:20 07/17/22 07:06 3 07/17/22 02:42 3 07/17/22 01:42 3 07/17/22 00:00 07/16/22 22:37 3 Laboratory Results 07/17/22 07/17/22 Range/Units 06:33 06:33 WBC 3.81 L (4.8-10.8) K/ul RBC 3.68 L (4.20-5.40) M/uL Hgb 12.2 (12.0-16.0) g/dl Hct 36.4 L (37.0-47.0) % MCV 98.9 (80.0-100.0) fL MCH 33.2 (25.0-34.0) pg MCHC 33.5 (32.0-36.0) g/dL RDW Std Deviation 43.8 (36.4-46.3) fL RDW Coeff of Claudio 12.0 (11.5-14.5) % Plt Count 99 L (130-400) K/uL MPV 10.3 (9.4-12.4) fL Platelet Estimate Decreased L (Normal) Sodium 138 (136-145) mmol/L Potassium 3.2 L (3.5-5.1) mmol/L Chloride 107 (98-107) mmol/L Carbon Dioxide 23 (21-32) mmol/L Anion Gap 8 (3-11) BUN 9 (6-23) mg/dl Creatinine 0.42 L (0.6-1.2) mg/dl Est Cr Clr Drug Dosing 128.5 ml/min Est GFR ( Amer) 129.1 ml/min Est GFR (Non-Af Amer) 111.4 ml/min BUN/Creatinine Ratio 21.4 H (10-20) Glucose 58 L (70-99(Fasting)) mg/dl Calcium 7.2 L (8.6-10.3) mg/dl Phosphorus 1.8 L (2.5-4.9) mg/dl Magnesium 1.6 L (1.7-2.4) mg/dl Medications Administered Current Inpatient Medications Carbamazepine (Carbamazepine 200 Mg Tabcr) 200 mg PO BID [facility] Stop: 08/14/22 08:59 Last Admin: 07/16/22 20:50 Dose: 200 mg Cyanocobalamin (Cyanocobalamin (B-12) 500 Mcg Tablet) 500 mcg PO QAM [facility] Stop: 08/14/22 08:59 Last Admin: 07/16/22 09:24 Dose: 500 mcg Guaifenesin (Guaifenesin Sugar Free 200 Mg/10 Ml Udc) 200 mg PO Q6H [facility] Stop: 08/15/22 13:14 Last Admin: 07/17/22 06:30 Dose: Not Given Acetaminophen (Ofirmev) 1,000 mg in 100 mls @ 400 mls/hr IV Q8H PRN PRN Reason: fever/pain Stop: 07/17/22 22:15 Last Infusion: 07/17/22 04:38 Dose: Infused Promethazine HCl 6.25 mg/ (Sodium Chloride) 50.25 mls @ 201 mls/hr IV Q6H PRN PRN Reason: Nausea And Vomiting Stop: 08/13/22 22:15 Last Infusion: 07/15/22 07:36 Dose: Infused Ertapenem 1,000 mg/ Syringe 10 mls @ 2 mls/min IV Q24H [facility] Stop: 07/22/22 01:29 Last Admin: 07/15/22 01:51 Dose: 2 mls/min Sodium Chloride (1/2 Nss) 1,000 mls @ 100 mls/hr IV .Q10H [facility] Stop: 08/15/22 07:29 Last Admin: 07/17/22 05:45 Dose: 100 mls/hr Meropenem 500 mg/ Syringe 10 mls @ 2 mls/min IV Q6H [facility]; Protocol Stop: 07/22/22 08:59 Last Admin: 07/17/22 04:14 Dose: 2 mls/min Vancomycin HCl 750 mg/ Sodium (Chloride) 265 mls @ 200 mls/hr IV Q12H [facility]; Protocol Stop: 07/23/22 08:59 Last Infusion: 07/16/22 22:17 Dose: Infused Ipratropium [place] (Ipratropium [place] Neb Soln 0.02% 2.5 Ml Vial) 0.5 mg INH Q6R [facility] Stop: 08/14/22 08:29 Last Admin: 07/17/22 07:06 Dose: 0.5 mg Lactobacillus Acidophilus (Lactobacillus Acidophilus 1 Gm Pack) 1 gm PO TIDM [facility] Stop: 08/15/22 18:19 Last Admin: 07/16/22 20:42 Dose: 1 gm Levalbuterol HCl (Levalbuterol 1.25 Mg/3 Ml Neb) 1.25 mg NEB Q6R [facility] Stop: 08/14/22 08:29 Last Admin: 07/17/22 07:06 Dose: 1.25 mg Levothyroxine Sodium (Levothyroxine Sodium 50 Mcg Tablet) 50 mcg PO DAILYBB [facility] Stop: 08/14/22 06:29 Last Admin: 07/17/22 05:45 Dose: 50 mcg Miscellaneous Information (Vancomycin Consult Active) 1 each N/A UD PRN PRN Reason: Consult Stop: 08/14/22 07:48 Multivitamins (Multivitamin Tab) 1 tab PO QAM [facility] Stop: 08/14/22 08:59 Last Admin: 07/16/22 09:25 Dose: 1 tab Pantoprazole Sodium (Pantoprazole 40 Mg Tab) 40 mg PO DAILYBB [facility] Stop: 08/14/22 06:29 Last Admin: 07/17/22 05:45 Dose: 40 mg Potassium Chloride (Potassium Chloride 20 Meq/15 Ml Udc) 20 meq PO NOW STA Stop: 07/17/22 09:17 Potassium Chloride (Potassium Chloride 20 Meq/15 Ml Udc) 20 meq PO TID [facility] Stop: 08/16/22 13:59 Potassium Phosphate (Potassium Phos 3 Mmol/1 Ml Infusion) 15 mmol IV NOW STA Stop: 07/17/22 09:18 Rosuvastatin Calcium (Rosuvastatin Calcium 20 Mg Tab) 40 mg PO HS [facility] Stop: 08/14/22 20:59 Last Admin: 07/16/22 20:50 Dose: 40 mg
[2022-07-17] MEDS ORDERED: POTASSIUM PHOSPHATE 15 MMOL in SODIUM CHLORIDE 0.9% 250 ML IV ONE (09:45)
[2022-07-17] MEDS: LACTOBACILLUS ACIDOPHILUS 1 GM PACK PO SCH ×3 (09:57→18:09)
[2022-07-17] MEDS: CYANOCOBALAMIN (B-12) 500 MCG TABLET PO SCH (09:57)
[2022-07-17] MEDS: MULTIVITAMIN TAB PO SCH (09:57)
[2022-07-17] MEDS: VANCOMYCIN HCL 750 MG in SODIUM CHLORIDE 0.9% 250 ML IV SCH ×2 (09:58→20:38)
[2022-07-17] MEDS: POTASSIUM CHLORIDE 20 MEQ/15 ML UDC PO SCH ×2 (16:42→20:23)
[2022-07-17] MEDS: ROSUVASTATIN CALCIUM 20 MG TAB PO SCH (20:23)
[2022-07-17] MEDS ORDERED: KETOROLAC TROMETHAMINE 15 MG/ML VIAL IV ONE (22:20)
[2022-07-17] MEDS ORDERED: POLYETHYLENE (MIRALAX) 17 GM PACK PO STA (22:45)
[2022-07-17] MEDS ORDERED: POLYETHYLENE (MIRALAX) 17 GM PACK PO PRN (22:45)
[2022-07-18] MEDS: IPRATROPIUM BROMIDE NEB SOLN 0.02% 2.5 ML VIAL INH SCH ×4 (00:02→19:33)
[2022-07-18] MEDS: LEVALBUTEROL 1.25 MG/3 ML NEB NEB SCH ×4 (00:02→19:33)
[2022-07-18] MEDS: DOCUSATE SODIUM/SENNA 50/8.6MG TAB PO SCH ×2 (00:46→08:17)
[2022-07-18] MEDS: guaiFENesin SUGAR FREE 200 MG/10 ML UDC PO SCH ×5 (00:48→19:15)
[2022-07-18] MEDS: MEROPENEM 500 MG in SYRINGE 0 ML IV SCH (04:13)
[2022-07-18] MEDS: PANTOprazole 40 MG TAB PO SCH (06:21)
[2022-07-18] MEDS: LEVOTHYROXINE SODIUM 50 MCG TABLET PO SCH (06:21)
[2022-07-18 06:36] LABS: Hematocrit (blood only) 33.1 % (37.0-47.0); Hemoglobin 11.3 g/dl (12.0-16.0); Mean Corpuscular Hemoglobin 32.7 pg (25.0-34.0); Mean Corpuscular Hgb Conc 34.1 g/dL (32.0-36.0); Mean Corpuscular Volume 95.7 fL (80.0-100.0); Mean Platelet Volume 10.1 fL (9.4-12.4); Platelet Count 132 K/uL (130-400); RDW Coefficient of Variation 12.2 % (11.5-14.5); Red Blood Count 3.46 M/uL (4.20-5.40)
[2022-07-18 06:53] LABS: BUN Creatinine Ratio 15.4 (10-20); Calcium 7.1 mg/dl (8.6-10.3); Est GFR (African American) 132.3 ml/min; Est GFR (Non-African American) 114.2 ml/min; Magnesium 1.6 mg/dl (1.7-2.4); Phosphorus 2.1 mg/dl (2.5-4.9); Potassium 3.4 mmol/L (3.5-5.1)
[2022-07-18] MEDS ORDERED: VANCOMYCIN LEVEL SCH (08:00)
[2022-07-18] MEDS: MULTIVITAMIN TAB PO SCH (08:17)
[2022-07-18] MEDS: CYANOCOBALAMIN (B-12) 500 MCG TABLET PO SCH (08:17)
[2022-07-18] MEDS: POTASSIUM CHLORIDE 20 MEQ/15 ML UDC PO SCH ×4 (08:18→20:40)
[2022-07-18] MEDS: LACTOBACILLUS ACIDOPHILUS 1 GM PACK PO SCH ×3 (08:18→16:12)
[2022-07-18] MEDS ORDERED: D5W AND 1/2NSS 1,000 ML IV SCH (08:45)
--- NOTE | 2022-07-18 09:38 | Pharmacy Report ---
Pharmacy PK ABX Note - Date of Service July 18, 2022 - Assessment and Plan Assessment 07/18: * Day 5 of Vancomycin therapy. * Patient is on Vancomycin 750 mg IV q12hr. Delayed AM dose of Vancomycin today since trough resulted at 22.1 mcg/ml this AM. However, extrapolated trough right before dose = 14 mcg/ml. Therefore, continued with same dosing. * Stop date for Vancomycin is currently for 07/23/22 for 10 days of therapy. 07/16/22: * Preliminary blood cultures and urine culture no growth, continues on oxygen 3 L/min this AM, Cdiff negative, lactate trending down * Continues on broad spectrum abx with vancomycin and meropenem 07/15/22: * 61 year old F started on vancomycin and meropenem for concerns for sepsis/aspiration pneumonia/HCAP/UTI. Had been on keflex prior to admission for toe infection. PMHx significant for CVA, seizure disorder, astrocytoma s/p surgery/chemoradiation, traumatic brain injury. Per notes, she [facility] and was not responding verbally as she normally does so was sent to hospital for evaluation. She had subsequent nausea/vomiting in ER. CT of lung concerning for possible pneumonia, also potential nonspecific colitis per report. Recent hospitalization 06/04-06/07 for hypernatremia. Febrile on admission, elevated procalcitonin - blood cultures and urine culture pending, positive MRSA swab. Plan Vancomycin * Random vancomycin level this AM was ~22 mcg/ml - currently receiving vancomycin 750 mg IV q 12 hr. * Based upon level, estimated to achieve AUC/LAWRENCE of 437 mg/L.hr. Extrapolated trough is 14 mcg/ml. * Continued with Vancomycin 750 mg IV q12h. * Will plan to order another level in 2-3 days or sooner if renal function changes Pharmacy has transitioned to AUC monitoring for vancomycin. AUC/LAWRENCE is the preferred PK/PD target and is associated with decreased risk of nephrotoxicity compared to traditional trough targets.
--- NOTE | 2022-07-18 09:52 | Hospitalist Progress Note ---
Date of Service July 18, 2022 Assessment & Plan (1) Severe sepsis: Plan: 61-year-old female with CVA, hypertension, hyperlipidemia, seizure disorder, astrocytoma status post surgery/chemoradiation, traumatic brain as per records, GERD, hypothyroidism, chronic urticaria as per records, past tobacco abuse presenting with altered mental status (1) Severe sepsis, metabolic encephalopathy likely secondary to bilateral pneumonia, UTI Plan: SIRS plus lactic acidosis plus encephalopathy plus hypoxemia + metapneumovirus (on biofire) nausea/vomiting on admission poss. Aspiration pneumonia/HCAP, positive MRSA nasal swab initially thought poss. Complicated UTI - u cultx - negative Colitis on CT rule out C. difficile given recent Keflex Rx for toe infection c. diff negative stool pcr pending Blood cultures: negative in 48 hrs Patient was unresponsive on admission, currently awake and alert, answering questions appropriately Afebrile now, blood pressure still on the lower side CT abdomen pelvis: 1. Airspace opacities at the lung bases. Appearance concerning for a component of pneumonia. 2. Mild colonic mucosal thickening consistent with nonspecific colitis. Continue with vancomycin plus meropenem day #4 -> switch meropenem to cefepime Nebs 4 times daily Continued IV half NSS since admission given hypernatremia, now IVF on hold Sodium now improved, pt w/ poor oral intake - oral intake improving hx CVA hypertension, BP on the lower side, on IV fluids, cont. to monitor hyperlipidemia, on statin Rx seizure disorder on Tegretol hx astrocytoma status post surgery/chemoradiation traumatic brain as per records GERD on PPI hypothyroidism, TSH from 2 months ago noted to be low TSH 0.07, free T41.9-subclinical hyperthyroidism Follow-up as an outpatient past tobacco abuse DVT prophylaxis. SCDs Re: hx Brain tumor DNR/DNI per admitting provider's discussion w/family Disposition Pending, return to alf facility when medically stable Admission and Anticipated Discharge Date Admission Date: July 14, 2022 Subjective Follow-up for sepsis, metabolic encephalopathy, hypoxia , + metapneumovirus , poss. asp. pna, colitis, n/v on admission Seen sitting up in bed, not in distress, awake and alert, on 2-3 L of oxygen via nasal cannula - NC placed over pt's chin on my exam Patient is able to answer questions appropriately No signs of distress, pain Denies fever, chills, shortness of breath, chest pain, abdominal pain + cough encouraged incentive spirometer and flutter valve Review of Systems Review of Systems: All systems reviewed & are unremarkable except as noted in Subjective Physical Exam Physical Exam: General- awake and alert, chronically ill appearing, appears weak, not in distress, head tilted to the side (pt reports at baseline) Eyes- anicteric Neck- no JVD Lungs- + rhonchi, + crackles no wheezing, good air entry bilaterally, + cough Heart- normal rate, regular rhythm; no murmurs Abdomen- normal bowel sounds, nondistended, soft, nontender Extremities- no pretibial edema Neuro- awake, alert, answering simple questions appropriately, + generalized weakness, L-sided hemiparesis Skin- warm & dry Results & Data Results & Data Vital Signs (Past 12 Hours) Vital Signs Temp Pulse Pulse Resp BP BP Pulse Ox 07/18/22 07:43 37 C 82 16 103/71 92 07/18/22 07:26 82 18 92 07/18/22 02:14 37.3 C 74 18 121/81 95 07/18/22 00:02 77 18 95 07/17/22 23:01 78 07/17/22 22:48 37.5 C 73 18 125/84 94 O2 Del Method O2 Flow Rate 07/18/22 07:43 Room Air 07/18/22 07:26 Room Air 07/18/22 02:14 Room Air 07/18/22 00:02 Nasal Cannula 2 07/17/22 23:01 07/17/22 22:48 Nasal Cannula 2 Laboratory Results 07/18/22 07/18/22 07/18/22 Range/Units 06:14 06:14 06:14 WBC 3.60 L (4.8-10.8) K/ul RBC 3.46 L (4.20-5.40) M/uL Hgb 11.3 L (12.0-16.0) g/dl Hct 33.1 L (37.0-47.0) % MCV 95.7 (80.0-100.0) fL MCH 32.7 (25.0-34.0) pg MCHC 34.1 (32.0-36.0) g/dL RDW Std Deviation 43.0 (36.4-46.3) fL RDW Coeff of Claudio 12.2 (11.5-14.5) % Plt Count 132 (130-400) K/uL MPV 10.1 (9.4-12.4) fL Sodium 140 (136-145) mmol/L Potassium 3.4 L (3.5-5.1) mmol/L Chloride 110 H (98-107) mmol/L Carbon Dioxide 24 (21-32) mmol/L Anion Gap 6 (3-11) BUN 6 (6-23) mg/dl Creatinine 0.39 L (0.6-1.2) mg/dl Est Cr Clr Drug Dosing 139.0 ml/min Est GFR ( Amer) 132.3 ml/min Est GFR (Non-Af Amer) 114.2 ml/min BUN/Creatinine Ratio 15.4 (10-20) Glucose 61 L (70-99(Fasting)) mg/dl Calcium 7.1 L (8.6-10.3) mg/dl Phosphorus 2.1 L (2.5-4.9) mg/dl Magnesium 1.6 L (1.7-2.4) mg/dl Random Vancomycin 22.1 H (10-20) mcg/ml Medications Administered Current Inpatient Medications Carbamazepine (Carbamazepine 200 Mg Tabcr) 200 mg PO BID [facility] Stop: 08/14/22 08:59 Last Admin: 07/18/22 08:17 Dose: 200 mg Cyanocobalamin (Cyanocobalamin (B-12) 500 Mcg Tablet) 500 mcg PO QAM [facility] Stop: 08/14/22 08:59 Last Admin: 07/18/22 08:17 Dose: 500 mcg Guaifenesin (Guaifenesin Sugar Free 200 Mg/10 Ml Udc) 200 mg PO Q6H [facility] Stop: 08/15/22 13:14 Last Admin: 07/18/22 08:17 Dose: 200 mg Promethazine HCl 6.25 mg/ (Sodium Chloride) 50.25 mls @ 201 mls/hr IV Q6H PRN PRN Reason: Nausea And Vomiting Stop: 08/13/22 22:15 Last Infusion: 07/15/22 07:36 Dose: Infused Sodium Chloride (1/2 Nss) 1,000 mls @ 100 mls/hr IV .Q10H [facility] Stop: 08/15/22 07:29 Last Infusion: 07/17/22 13:56 Dose: Infused Dextrose/Sodium Chloride (D5w And 1/2nss) 1,000 mls @ 80 mls/hr IV .[id number] [facility] Stop: 08/17/22 08:44 Last Admin: 07/18/22 09:16 Dose: 80 mls/hr Cefepime HCl 2,000 mg/ Syringe 20 mls @ 5 mls/min IV Q8H [facility] Stop: 07/25/22 08:59 Vancomycin HCl 750 mg/ Sodium (Chloride) 265 mls @ 200 mls/hr IV Q12H [facility]; Protocol Stop: 07/23/22 23:59 Ipratropium [place] (Ipratropium [place] Neb Soln 0.02% 2.5 Ml Vial) 0.5 mg INH Q6R [facility] Stop: 08/14/22 08:29 Last Admin: 07/18/22 07:26 Dose: 0.5 mg Lactobacillus Acidophilus (Lactobacillus Acidophilus 1 Gm Pack) 1 gm PO TIDM [facility] Stop: 08/15/22 18:19 Last Admin: 07/18/22 08:18 Dose: 1 gm Levalbuterol HCl (Levalbuterol 1.25 Mg/3 Ml Neb) 1.25 mg NEB Q6R [facility] Stop: 08/14/22 08:29 Last Admin: 07/18/22 07:26 Dose: 1.25 mg Levothyroxine Sodium (Levothyroxine Sodium 50 Mcg Tablet) 50 mcg PO DAILYBB [facility] Stop: 08/14/22 06:29 Last Admin: 07/18/22 06:21 Dose: 50 mcg Miscellaneous Information (Vancomycin Consult Active) 1 each N/A UD PRN PRN Reason: Consult Stop: 08/14/22 07:48 Multivitamins (Multivitamin Tab) 1 tab PO QAM [facility] Stop: 08/14/22 08:59 Last Admin: 07/18/22 08:17 Dose: 1 tab Pantoprazole Sodium (Pantoprazole 40 Mg Tab) 40 mg PO DAILYBB [facility] Stop: 08/14/22 06:29 Last Admin: 07/18/22 06:21 Dose: 40 mg Polyethylene Glycol (Polyethylene (Miralax) 17 Gm Pack) 17 gm PO DAILY PRN PRN Reason: Constipation Stop: 08/16/22 22:44 Potassium Chloride (Potassium Chloride 20 Meq/15 Ml Udc) 20 meq PO TID [facility] Stop: 08/16/22 13:59 Last Admin: 07/18/22 08:18 Dose: 20 meq Rosuvastatin Calcium (Rosuvastatin Calcium 20 Mg Tab) 40 mg PO HS [facility] Stop: 08/14/22 20:59 Last Admin: 07/17/22 20:23 Dose: 40 mg Senna/Docusate Sodium (Docusate Sodium/Senna 50/8.6mg Tab) 1 tab PO QAM [facility] Stop: 08/16/22 22:44 Last Admin: 07/18/22 08:17 Dose: 1 tab
[2022-07-18] MEDS: CEFEPIME 2,000 MG in SYRINGE 0 ML IV SCH ×2 (09:54→16:12)
[2022-07-18] MEDS: VANCOMYCIN HCL 750 MG in SODIUM CHLORIDE 0.9% 250 ML IV SCH ×2 (11:14→21:56)
--- NOTE | 2022-07-18 17:20 | XRay Report ---
XR chest 1V portable CLINICAL HISTORY: follow up, hypoxia COMPARISON STUDY: Chest radiograph July 14, 2022. FINDINGS: Evaluation is suboptimal given difficulty positioning. The patient is rotated. However, no consolidation is identified and there is no evidence for pulmonary edema. Cardiomediastinal silhouett e is grossly stable. IMPRESSION: Exam compromised given difficulty positioning. No acute findings. ACT 112: Negative or not required by law. Electronically signed by: Omkar Ricci M.D. 07/18/2022 5:19 PM
[2022-07-18] MEDS: MAGNESIUM OXIDE 400 MG TAB PO SCH (18:08)
[2022-07-18] MEDS: ROSUVASTATIN CALCIUM 20 MG TAB PO SCH (20:40)
[2022-07-18] MEDS: ACETAMINOPHEN 325 MG TAB PO PRN (21:48)
[2022-07-19] MEDS: LEVALBUTEROL 1.25 MG/3 ML NEB NEB SCH ×4 (00:20→19:09)
[2022-07-19] MEDS: IPRATROPIUM BROMIDE NEB SOLN 0.02% 2.5 ML VIAL INH SCH ×4 (00:20→19:09)
[2022-07-19] MEDS: guaiFENesin SUGAR FREE 200 MG/10 ML UDC PO SCH ×4 (01:07→19:27)
[2022-07-19] MEDS: CEFEPIME 2,000 MG in SYRINGE 0 ML IV SCH ×3 (01:07→16:33)
[2022-07-19] MEDS: PANTOprazole 40 MG TAB PO SCH (06:01)
[2022-07-19] MEDS: LEVOTHYROXINE SODIUM 50 MCG TABLET PO SCH (06:01)
[2022-07-19 06:30] LABS: Hematocrit (blood only) 35.4 % (37.0-47.0); Hemoglobin 12.3 g/dl (12.0-16.0); Mean Corpuscular Hemoglobin 32.3 pg (25.0-34.0); Mean Corpuscular Hgb Conc 34.7 g/dL (32.0-36.0); Mean Corpuscular Volume 92.9 fL (80.0-100.0); Mean Platelet Volume 10.4 fL (9.4-12.4); Platelet Count 169 K/uL (130-400); RDW Coefficient of Variation 11.9 % (11.5-14.5); RDW Standard Deviation 40.9 fL (36.4-46.3); Red Blood Count 3.81 M/uL (4.20-5.40); White Blood Count 4.52 K/ul (4.8-10.8)
[2022-07-19 06:41] LABS: BUN Creatinine Ratio 16.7 (10-20); Creatinine Clr Calc Pharmacy 149.1 ml/min; Est GFR (African American) 135.8 ml/min; Est GFR (Non-African American) 117.2 ml/min; Magnesium 1.7 mg/dl (1.7-2.4); Phosphorus 2.1 mg/dl (2.5-4.9); Potassium 3.3 mmol/L (3.5-5.1)
[2022-07-19] MEDS ORDERED: POTASSIUM CHLORIDE / WTR 10 MEQ/100 ML PLCT IV ONE (08:00)
[2022-07-19] MEDS: LACTOBACILLUS ACIDOPHILUS 1 GM PACK PO SCH ×3 (08:33→16:33)
[2022-07-19] MEDS: CYANOCOBALAMIN (B-12) 500 MCG TABLET PO SCH (08:33)
[2022-07-19] MEDS: DOCUSATE SODIUM/SENNA 50/8.6MG TAB PO SCH (08:33)
[2022-07-19] MEDS: MULTIVITAMIN TAB PO SCH (08:33)
[2022-07-19] MEDS: POTASSIUM CHLORIDE 20 MEQ/15 ML UDC PO SCH ×3 (08:34→20:58)
[2022-07-19] MEDS: MAGNESIUM OXIDE 400 MG TAB PO SCH (08:34)
[2022-07-19] MEDS ORDERED: MICONAZOLE NITRATE POWDER 85 GM EXT PRN (10:05)
[2022-07-19] MEDS: VANCOMYCIN HCL 750 MG in SODIUM CHLORIDE 0.9% 250 ML IV SCH ×2 (10:52→21:52)
--- NOTE | 2022-07-19 14:21 | Hospitalist Progress Note ---
Date of Service July 19, 2022 Assessment & Plan (1) Severe sepsis: Plan: 61-year-old female with CVA, hypertension, hyperlipidemia, seizure disorder, astrocytoma status post surgery/chemoradiation, traumatic brain as per records, GERD, hypothyroidism, chronic urticaria as per records, past tobacco abuse presenting with altered mental status (1) Severe sepsis, metabolic encephalopathy likely secondary to bilateral pneumonia, UTI Plan: SIRS plus lactic acidosis plus encephalopathy plus hypoxemia + metapneumovirus (on biofire) nausea/vomiting on admission poss. Aspiration pneumonia/HCAP, positive MRSA nasal swab initially thought poss. Complicated UTI - u cultx - negative Colitis on CT rule out C. difficile given recent Keflex Rx for toe infection c. diff negative stool pcr pending Blood cultures: negative in 48 hrs Patient was unresponsive on admission, currently awake and alert, answering questions appropriately Afebrile now, blood pressure still on the lower side CT abdomen pelvis: 1. Airspace opacities at the lung bases. Appearance concerning for a component of pneumonia. 2. Mild colonic mucosal thickening consistent with nonspecific colitis. Continue with - vancomycin plus meropenem day --> switch meropenem to cefepime Nebs 4 times daily Continued IV half NSS since admission given hypernatremia , now IVF on hold Sodium now improved, pt w/ poor oral intake - oral intake improving hx CVA hypertension, BP on the lower side, on IV fluids, cont. to monitor hyperlipidemia, on statin Rx seizure disorder on Tegretol hx astrocytoma status post surgery/chemoradiation traumatic brain as per records GERD on PPI hypothyroidism, TSH from 2 months ago noted to be low TSH 0.07, free T41.9-subclinical hyperthyroidism Follow-up as an outpatient past tobacco abuse DVT prophylaxis. SCDs Re: hx Brain tumor DNR/DNI per admitting provider's discussion w/family Disposition - Pending, return to senior living facility when medically stable Admission and Anticipated Discharge Date Admission Date: July 14, 2022 Subjective Follow-up for sepsis, metabolic encephalopathy, hypoxia , + metapneumovirus , poss. asp. pna, colitis, n/v on admission Seen sitting up in bed, not in distress, little drowsy but answering appropriately, currently on RA No signs of distress, or pain Denies fever, chills, shortness of breath, chest pain, abdominal pain + cough encouraged incentive spirometer and flutter valve Review of Systems Review of Systems: All systems reviewed & are unremarkable except as noted in Subjective Physical Exam Physical Exam: General- awake and alert, chronically ill appearing, appears weak, not in distress, head tilted to the side (pt reports at baseline) Eyes- anicteric Neck- no JVD Lungs- + rhonchi, + crackles no wheezing, good air entry bilaterally, + cough Heart- normal rate, regular rhythm; no murmurs Abdomen- normal bowel sounds, nondistended, soft, nontender Extremities- no pretibial edema Neuro- awake, alert, answering simple questions appropriately, + generalized weakness, L-sided hemiparesis Skin- warm & dry Results & Data Results & Data Vital Signs (Past 12 Hours) Vital Signs Temp Pulse Pulse Resp BP BP Pulse Ox 07/19/22 12:55 76 18 91 07/19/22 11:40 37.5 C 74 20 115/78 92 07/19/22 10:01 07/19/22 07:25 37.0 C 82 20 119/87 96 07/19/22 07:46 82 18 96 07/19/22 06:50 87 07/19/22 03:13 88 16 119/81 93 O2 Del Method O2 Flow Rate 07/19/22 12:55 Room Air 07/19/22 11:40 Nasal Cannula 07/19/22 10:01 Nasal Cannula 3 07/19/22 07:25 Nasal Cannula 07/19/22 07:46 Nasal Cannula 2 07/19/22 06:50 07/19/22 03:13 Nasal Cannula 4 Laboratory Results 07/19/22 07/19/22 Range/Units 05:37 05:37 WBC 4.52 L (4.8-10.8) K/ul RBC 3.81 L (4.20-5.40) M/uL Hgb 12.3 (12.0-16.0) g/dl Hct 35.4 L (37.0-47.0) % MCV 92.9 (80.0-100.0) fL MCH 32.3 (25.0-34.0) pg MCHC 34.7 (32.0-36.0) g/dL RDW Std Deviation 40.9 (36.4-46.3) fL RDW Coeff of Claudio 11.9 (11.5-14.5) % Plt Count 169 (130-400) K/uL MPV 10.4 (9.4-12.4) fL Sodium 140 (136-145) mmol/L Potassium 3.3 L (3.5-5.1) mmol/L Chloride 109 H (98-107) mmol/L Carbon Dioxide 27 (21-32) mmol/L Anion Gap 4 (3-11) BUN 6 (6-23) mg/dl Creatinine 0.36 L (0.6-1.2) mg/dl Est Cr Clr Drug Dosing 149.1 ml/min Est GFR ( Amer) 135.8 ml/min Est GFR (Non-Af Amer) 117.2 ml/min BUN/Creatinine Ratio 16.7 (10-20) Glucose 78 (70-99(Fasting)) mg/dl Calcium 8.0 L (8.6-10.3) mg/dl Phosphorus 2.1 L (2.5-4.9) mg/dl Magnesium 1.7 (1.7-2.4) mg/dl Medications Administered Current Inpatient Medications Acetaminophen (Acetaminophen 325 Mg Tab) 650 mg PO Q6H PRN PRN Reason: Fever/pain Stop: 08/17/22 21:27 Last Admin: 07/18/22 21:48 Dose: 650 mg Carbamazepine (Carbamazepine 200 Mg Tabcr) 200 mg PO BID [facility] Stop: 08/14/22 08:59 Last Admin: 07/19/22 08:34 Dose: 200 mg Cyanocobalamin (Cyanocobalamin (B-12) 500 Mcg Tablet) 500 mcg PO QAM [facility] Stop: 08/14/22 08:59 Last Admin: 07/19/22 08:33 Dose: 500 mcg Guaifenesin (Guaifenesin Sugar Free 200 Mg/10 Ml Udc) 200 mg PO Q6H [facility] Stop: 08/15/22 13:14 Last Admin: 07/19/22 14:13 Dose: 200 mg Promethazine HCl 6.25 mg/ (Sodium Chloride) 50.25 mls @ 201 mls/hr IV Q6H PRN PRN Reason: Nausea And Vomiting Stop: 08/13/22 22:15 Last Infusion: 07/15/22 07:36 Dose: Infused Sodium Chloride (1/2 Nss) 1,000 mls @ 100 mls/hr IV .Q10H [facility] Stop: 08/15/22 07:29 Last Infusion: 07/17/22 13:56 Dose: Infused Dextrose/Sodium Chloride (D5w And 1/2nss) 1,000 mls @ 80 mls/hr IV .[id number] [facility] Stop: 08/17/22 08:44 Last Infusion: 07/19/22 13:52 Dose: Infused Cefepime HCl 2,000 mg/ Syringe 20 mls @ 5 mls/min IV Q8H [facility] Stop: 07/25/22 08:59 Last Admin: 07/19/22 08:41 Dose: 5 mls/min Vancomycin HCl 750 mg/ Sodium (Chloride) 265 mls @ 200 mls/hr IV Q12H [facility]; Protocol Stop: 07/23/22 23:59 Last Infusion: 07/19/22 13:24 Dose: Infused Ipratropium [place] (Ipratropium [place] Neb Soln 0.02% 2.5 Ml Vial) 0.5 mg INH Q6R [facility] Stop: 08/14/22 08:29 Last Admin: 07/19/22 12:55 Dose: 0.5 mg Lactobacillus Acidophilus (Lactobacillus Acidophilus 1 Gm Pack) 1 gm PO TIDM [facility] Stop: 08/15/22 18:19 Last Admin: 07/19/22 11:58 Dose: 1 gm Levalbuterol HCl (Levalbuterol 1.25 Mg/3 Ml Neb) 1.25 mg NEB Q6R [facility] Stop: 08/14/22 08:29 Last Admin: 07/19/22 12:55 Dose: 1.25 mg Levothyroxine Sodium (Levothyroxine Sodium 50 Mcg Tablet) 50 mcg PO DAILYBB [facility] Stop: 08/14/22 06:29 Last Admin: 07/19/22 06:01 Dose: 50 mcg Magnesium Oxide (Magnesium Oxide 400 Mg Tab) 400 mg PO QAM [facility] Stop: 08/17/22 16:59 Last Admin: 07/19/22 08:34 Dose: 400 mg Miconazole Nitrate (Miconazole Nitrate Powder 85 Gm) 1 appln EXT PRN PRN PRN Reason: Affected Skin Folds Stop: 08/18/22 10:04 Miscellaneous Information (Vancomycin Consult Active) 1 each N/A UD PRN PRN Reason: Consult Stop: 08/14/22 07:48 Multivitamins (Multivitamin Tab) 1 tab PO QAM [facility] Stop: 08/14/22 08:59 Last Admin: 07/19/22 08:33 Dose: 1 tab Pantoprazole Sodium (Pantoprazole 40 Mg Tab) 40 mg PO DAILYBB [facility] Stop: 08/14/22 06:29 Last Admin: 07/19/22 06:01 Dose: 40 mg Polyethylene Glycol (Polyethylene (Miralax) 17 Gm Pack) 17 gm PO DAILY PRN PRN Reason: Constipation Stop: 08/16/22 22:44 Potassium Chloride (Potassium Chloride 20 Meq/15 Ml Udc) 20 meq PO TID [facility] Stop: 08/16/22 13:59 Last Admin: 07/19/22 14:11 Dose: 20 meq Rosuvastatin Calcium (Rosuvastatin Calcium 20 Mg Tab) 40 mg PO HS [facility] Stop: 08/14/22 20:59 Last Admin: 07/18/22 20:40 Dose: 40 mg Senna/Docusate Sodium (Docusate Sodium/Senna 50/8.6mg Tab) 1 tab PO QAM [facility] Stop: 08/16/22 22:44 Last Admin: 07/19/22 08:33 Dose: 1 tab
[2022-07-19] MEDS: ACETAMINOPHEN 325 MG TAB PO PRN (17:39)
[2022-07-19] MEDS: ROSUVASTATIN CALCIUM 20 MG TAB PO SCH (20:58)
[2022-07-20] MEDS: LEVALBUTEROL 1.25 MG/3 ML NEB NEB SCH ×4 (00:03→19:39)
[2022-07-20] MEDS: IPRATROPIUM BROMIDE NEB SOLN 0.02% 2.5 ML VIAL INH SCH ×4 (00:03→19:39)
[2022-07-20] MEDS: guaiFENesin SUGAR FREE 200 MG/10 ML UDC PO SCH ×4 (01:33→19:29)
[2022-07-20] MEDS: CEFEPIME 2,000 MG in SYRINGE 0 ML IV SCH ×3 (01:33→16:47)
[2022-07-20] MEDS: LEVOTHYROXINE SODIUM 50 MCG TABLET PO SCH (05:46)
[2022-07-20] MEDS: PANTOprazole 40 MG TAB PO SCH (05:46)
[2022-07-20 06:30] LABS: Hematocrit (blood only) 33.8 % (37.0-47.0); Hemoglobin 11.7 g/dl (12.0-16.0); Mean Corpuscular Hemoglobin 32.2 pg (25.0-34.0); Mean Corpuscular Hgb Conc 34.6 g/dL (32.0-36.0); Mean Corpuscular Volume 93.1 fL (80.0-100.0); Mean Platelet Volume 10.2 fL (9.4-12.4); Platelet Count 187 K/uL (130-400); RDW Coefficient of Variation 11.7 % (11.5-14.5); RDW Standard Deviation 39.8 fL (36.4-46.3); Red Blood Count 3.63 M/uL (4.20-5.40); White Blood Count 4.72 K/ul (4.8-10.8)
[2022-07-20 06:53] LABS: BUN Creatinine Ratio 22.2 (10-20); Calcium 8.1 mg/dl (8.6-10.3); Creatinine Clr Calc Pharmacy 137.5 ml/min; Est GFR (African American) 135.8 ml/min; Est GFR (Non-African American) 117.2 ml/min; Magnesium 1.8 mg/dl (1.7-2.4); Phosphorus 2.2 mg/dl (2.5-4.9); Potassium 3.3 mmol/L (3.5-5.1)
--- NOTE | 2022-07-20 08:17 | Hospitalist Progress Note ---
Date of Service July 20, 2022 Assessment & Plan (1) Severe sepsis: Plan: 61-year-old female with CVA, hypertension, hyperlipidemia, seizure disorder, astrocytoma status post surgery/chemoradiation, traumatic brain as per records, GERD, hypothyroidism, chronic urticaria as per records, past tobacco abuse presenting with altered mental status (1) Severe sepsis, metabolic encephalopathy likely secondary to bilateral pneumonia, UTI Plan: SIRS plus lactic acidosis plus encephalopathy plus hypoxemia + metapneumovirus (on biofire) nausea/vomiting on admission poss. Aspiration pneumonia/HCAP, positive MRSA nasal swab initially thought poss. Complicated UTI - u cultx - negative Colitis on CT rule out C. difficile given recent Keflex Rx for toe infection c. diff negative stool pcr pending Blood cultures: negative in 48 hrs Patient was unresponsive on admission, currently awake and alert, answering questions appropriately Afebrile now, blood pressure still on the lower side CT abdomen pelvis: 1. Airspace opacities at the lung bases. Appearance concerning for a component of pneumonia. 2. Mild colonic mucosal thickening consistent with nonspecific colitis. Continue with - vancomycin plus meropenem day --> switch meropenem to cefepime Nebs 4 times daily Continued IV half NSS initially started on admission given hypernatremia , now IVF on hold Sodium now improved, pt w/ poor oral intake - oral intake seems somewhat improving hx CVA hypertension, BP on the lower side, on IV fluids, cont. to monitor hyperlipidemia, on statin Rx seizure disorder on Tegretol hx astrocytoma status post surgery/chemoradiation traumatic brain as per records GERD on PPI hypothyroidism, TSH from 2 months ago noted to be low TSH 0.07, free T41.9-subclinical hyperthyroidism Follow-up as an outpatient past tobacco abuse DVT prophylaxis. SCDs Re: hx Brain tumor DNR/DNI per admitting provider's discussion w/family Disposition - [facility] Admission and Anticipated Discharge Date Admission Date: July 14, 2022 Subjective Follow-up for sepsis, metabolic encephalopathy, hypoxia , + metapneumovirus , poss. asp. pna, colitis, n/v on admission Seen sitting up in bed, not in distress, little drowsy but answering appropriately, currently on RA No signs of distress, or pain Denies fever, chills, shortness of breath, chest pain, abdominal pain + cough encouraged incentive spirometer and flutter valve Discussed w/ RN at the bedside. Review of Systems Review of Systems: All systems reviewed & are unremarkable except as noted in Subjective Physical Exam Physical Exam: General- awake and alert, chronically ill appearing, appears weak, not in distress Eyes- anicteric Neck- no JVD Lungs- + rhonchi, no wheezing, good air entry bilaterally, + cough Heart- normal rate, regular rhythm; no murmurs Abdomen- normal bowel sounds, nondistended, soft, nontender Extremities- no pretibial edema Neuro- drowsy, but answering simple questions appropriately, + generalized weakness, L-sided hemiparesis Skin- warm & dry Results & Data Results & Data Vital Signs (Past 12 Hours) Vital Signs Temp Pulse Pulse Resp BP Pulse Ox O2 Del Method 07/20/22 07:54 37.1 C 87 18 111/68 95 Room Air 07/20/22 07:12 18 Room Air 07/20/22 06:58 77 07/20/22 03:23 37.0 C 96 H 16 142/89 H 92 Room Air 07/20/22 00:24 89 07/19/22 23:05 91 H 16 125/82 91 Room Air 07/19/22 21:00 Room Air Laboratory Results 07/20/22 07/20/22 Range/Units 06:04 06:04 WBC 4.72 L (4.8-10.8) K/ul RBC 3.63 L (4.20-5.40) M/uL Hgb 11.7 L (12.0-16.0) g/dl Hct 33.8 L (37.0-47.0) % MCV 93.1 (80.0-100.0) fL MCH 32.2 (25.0-34.0) pg MCHC 34.6 (32.0-36.0) g/dL RDW Std Deviation 39.8 (36.4-46.3) fL RDW Coeff of Claudio 11.7 (11.5-14.5) % Plt Count 187 (130-400) K/uL MPV 10.2 (9.4-12.4) fL Sodium 141 (136-145) mmol/L Potassium 3.3 L (3.5-5.1) mmol/L Chloride 109 H (98-107) mmol/L Carbon Dioxide 27 (21-32) mmol/L Anion Gap 5 (3-11) BUN 8 (6-23) mg/dl Creatinine 0.36 L (0.6-1.2) mg/dl Est Cr Clr Drug Dosing 137.5 ml/min Est GFR ( Amer) 135.8 ml/min Est GFR (Non-Af Amer) 117.2 ml/min BUN/Creatinine Ratio 22.2 H (10-20) Glucose 72 (70-99(Fasting)) mg/dl Calcium 8.1 L (8.6-10.3) mg/dl Phosphorus 2.2 L (2.5-4.9) mg/dl Magnesium 1.8 (1.7-2.4) mg/dl Medications Administered Current Inpatient Medications Acetaminophen (Acetaminophen 325 Mg Tab) 650 mg PO Q6H PRN PRN Reason: Fever/pain Stop: 08/17/22 21:27 Last Admin: 07/19/22 17:39 Dose: 650 mg Carbamazepine (Carbamazepine 200 Mg Tabcr) 200 mg PO BID [facility] Stop: 08/14/22 08:59 Last Admin: 07/19/22 20:57 Dose: 200 mg Cyanocobalamin (Cyanocobalamin (B-12) 500 Mcg Tablet) 500 mcg PO QAM [facility] Stop: 08/14/22 08:59 Last Admin: 07/19/22 08:33 Dose: 500 mcg Guaifenesin (Guaifenesin Sugar Free 200 Mg/10 Ml Udc) 200 mg PO Q6H [facility] Stop: 08/15/22 13:14 Last Admin: 07/20/22 01:33 Dose: Not Given Promethazine HCl 6.25 mg/ (Sodium Chloride) 50.25 mls @ 201 mls/hr IV Q6H PRN PRN Reason: Nausea And Vomiting Stop: 08/13/22 22:15 Last Infusion: 07/15/22 07:36 Dose: Infused Sodium Chloride (1/2 Nss) 1,000 mls @ 100 mls/hr IV .Q10H [facility] Stop: 08/15/22 07:29 Last Infusion: 07/17/22 13:56 Dose: Infused Dextrose/Sodium Chloride (D5w And 1/2nss) 1,000 mls @ 80 mls/hr IV .[id number] [facility] Stop: 08/17/22 08:44 Last Infusion: 07/19/22 13:52 Dose: Infused Cefepime HCl 2,000 mg/ Syringe 20 mls @ 5 mls/min IV Q8H [facility] Stop: 07/25/22 08:59 Last Admin: 07/20/22 01:33 Dose: 5 mls/min Vancomycin HCl 750 mg/ Sodium (Chloride) 265 mls @ 200 mls/hr IV Q12H [facility]; Protocol Stop: 07/23/22 23:59 Last Infusion: 07/19/22 23:20 Dose: Infused Ipratropium [place] (Ipratropium [place] Neb Soln 0.02% 2.5 Ml Vial) 0.5 mg INH Q6R [facility] Stop: 08/14/22 08:29 Last Admin: 07/20/22 07:12 Dose: 0.5 mg Lactobacillus Acidophilus (Lactobacillus Acidophilus 1 Gm Pack) 1 gm PO TIDM [facility] Stop: 08/15/22 18:19 Last Admin: 07/19/22 16:33 Dose: 1 gm Levalbuterol HCl (Levalbuterol 1.25 Mg/3 Ml Neb) 1.25 mg NEB Q6R [facility] Stop: 08/14/22 08:29 Last Admin: 07/20/22 07:12 Dose: 1.25 mg Levothyroxine Sodium (Levothyroxine Sodium 50 [facility]g Tablet) [facility]: 08/14/22 06:29 Last Admin: 07/20/22 05:46 Dose: 50 mcg Magnesium Oxide (Magnesium Oxide 400 Mg Tab) 400 mg PO QAM [facility] Stop: 08/17/22 16:59 Last Admin: 07/19/22 08:34 Dose: 400 mg Miconazole Nitrate (Miconazole Nitrate Powder 85 Gm) 1 appln EXT PRN PRN PRN Reason: Affected Skin Folds Stop: 08/18/22 10:04 Miscellaneous Information (Vancomycin Consult Active) 1 each N/A UD PRN PRN Reason: Consult Stop: 08/14/22 07:48 Multivitamins (Multivitamin Tab) 1 tab PO QAM [facility] Stop: 08/14/22 08:59 Last Admin: 07/19/22 08:33 Dose: 1 tab Pantoprazole Sodium (Pantoprazole 40 Mg Tab) 40 mg PO DAILYBB [facility] Stop: 08/14/22 06:29 Last Admin: 07/20/22 05:46 Dose: 40 mg Polyethylene Glycol (Polyethylene (Miralax) 17 Gm Pack) 17 gm PO DAILY PRN PRN Reason: Constipation Stop: 08/16/22 22:44 Potassium Chloride (Potassium Chloride 20 Meq/15 Ml Udc) 20 meq PO TID [facility] Stop: 08/16/22 13:59 Last Admin: 07/19/22 20:58 Dose: 20 meq Rosuvastatin Calcium (Rosuvastatin Calcium 20 Mg Tab) 40 mg PO HS [facility] Stop: 08/14/22 20:59 Last Admin: 07/19/22 20:58 Dose: 40 mg Senna/Docusate Sodium (Docusate Sodium/Senna 50/8.6mg Tab) 1 tab PO QAM [facility] Stop: 08/16/22 22:44 Last Admin: 07/19/22 08:33 Dose: 1 tab
[2022-07-20] MEDS: CYANOCOBALAMIN (B-12) 500 MCG TABLET PO SCH (08:24)
[2022-07-20] MEDS: MAGNESIUM OXIDE 400 MG TAB PO SCH (08:24)
[2022-07-20] MEDS: POTASSIUM CHLORIDE 20 MEQ/15 ML UDC PO SCH (08:24)
[2022-07-20] MEDS: DOCUSATE SODIUM/SENNA 50/8.6MG TAB PO SCH (08:24)
[2022-07-20] MEDS: MULTIVITAMIN TAB PO SCH (08:25)
[2022-07-20] MEDS: LACTOBACILLUS ACIDOPHILUS 1 GM PACK PO SCH ×3 (08:25→16:47)
[2022-07-20] MEDS: VANCOMYCIN HCL 750 MG in SODIUM CHLORIDE 0.9% 250 ML IV SCH ×2 (09:56→22:33)
[2022-07-20] MEDS ORDERED: bisacodyL 10 MG SUPP PR STA (12:49)
[2022-07-20] MEDS ORDERED: bisacodyL 10 MG SUPP PR PRN (12:50)
[2022-07-20] MEDS ORDERED: POTASSIUM CHLORIDE / WTR 10 MEQ/100 ML PLCT IV SCH (14:00)
[2022-07-20] MEDS: POTASSIUM CHLORIDE / WTR 10 MEQ/100 ML PLCT IV SCH ×2 (14:04→15:03)
[2022-07-20 16:57] LABS: Adenovirus F 40/41 PCR Not Detected (NotDetected); Astrovirus PCR Not Detected (NotDetected); Campylobacter PCR Not Detected (NotDetected); Cryptosporidium PCR Not Detected (NotDetected); Cyclospora cayetanensis PCR Not Detected (NotDetected); Entamoeba histolytica PCR Not Detected (NotDetected); Enteroaggregative E.coli(EAEC) Not Detected (NotDetected); Enteropathogenic E.coli (EPEC) Not Detected (NotDetected); Enterotoxigenic E.coli (ETEC) Not Detected (NotDetected); Giardia lamblia PCR Not Detected (NotDetected); Norovirus GI/GII PCR Not Detected (NotDetected); Plesiomonas shigelloides PCR Not Detected (NotDetected); Rotavirus A PCR Not Detected (NotDetected); Salmonella PCR Not Detected (NotDetected); Sapovirus PCR Not Detected (NotDetected); Shiga-like Toxin E.coli (STEC) Not Detected (NotDetected); Shigella/Enteroinvasive E.coli Not Detected (NotDetected); Vibrio cholerae PCR Not Detected (NotDetected); Vibrio species PCR Not Detected (NotDetected); Yersinia enterocolitica PCR Not Detected (NotDetected)
[2022-07-20] MEDS: D5W AND 1/2NSS + 20MEQ KCL 20 MEQ/1,000 ML BAG IV SCH (18:11)
[2022-07-20] MEDS: ROSUVASTATIN CALCIUM 20 MG TAB PO SCH (20:52)
[2022-07-21] MEDS: IPRATROPIUM BROMIDE NEB SOLN 0.02% 2.5 ML VIAL INH SCH ×4 (00:27→19:57)
[2022-07-21] MEDS: LEVALBUTEROL 1.25 MG/3 ML NEB NEB SCH ×4 (00:28→19:57)
[2022-07-21] MEDS: CEFEPIME 2,000 MG in SYRINGE 0 ML IV SCH ×2 (00:51→09:39)
[2022-07-21] MEDS: guaiFENesin SUGAR FREE 200 MG/10 ML UDC PO SCH ×4 (00:51→20:45)
[2022-07-21] MEDS: LEVOTHYROXINE SODIUM 50 MCG TABLET PO SCH (06:18)
[2022-07-21] MEDS: PANTOprazole 40 MG TAB PO SCH (06:18)
[2022-07-21] MEDS: D5W AND 1/2NSS + 20MEQ KCL 20 MEQ/1,000 ML BAG IV SCH ×2 (06:19→23:21)
[2022-07-21 07:46] LABS: Hematocrit (blood only) 34.5 % (37.0-47.0); Hemoglobin 11.7 g/dl (12.0-16.0); Mean Corpuscular Hemoglobin 32.9 pg (25.0-34.0); Mean Corpuscular Hgb Conc 33.9 g/dL (32.0-36.0); Mean Corpuscular Volume 96.9 fL (80.0-100.0); Mean Platelet Volume 10.2 fL (9.4-12.4); Platelet Count 227 K/uL (130-400); RDW Coefficient of Variation 12.4 % (11.5-14.5); RDW Standard Deviation 44.2 fL (36.4-46.3); Red Blood Count 3.56 M/uL (4.20-5.40); White Blood Count 5.15 K/ul (4.8-10.8)
[2022-07-21 08:03] LABS: BUN Creatinine Ratio 18.2 (10-20); Calcium 7.8 mg/dl (8.6-10.3); Creatinine Clr Calc Pharmacy 112.5 ml/min; Est GFR (African American) 127.2 ml/min; Est GFR (Non-African American) 109.7 ml/min; Magnesium 1.9 mg/dl (1.7-2.4); Phosphorus 2.2 mg/dl (2.5-4.9); Potassium 3.5 mmol/L (3.5-5.1)
[2022-07-21] MEDS ORDERED: POTASSIUM PHOS 3 MMOL/1 ML INFUSION IV STA (08:33)
--- NOTE | 2022-07-21 08:36 | Hospitalist Progress Note ---
Date of Service July 21, 2022 Assessment & Plan (1) Severe sepsis: Plan: 61-year-old female with CVA, hypertension, hyperlipidemia, seizure disorder, astrocytoma status post surgery/chemoradiation, traumatic brain as per records, GERD, hypothyroidism, chronic urticaria as per records, past tobacco abuse presenting with altered mental status (1) Severe sepsis, metabolic encephalopathy likely secondary to bilateral pneumonia, UTI Plan: SIRS plus lactic acidosis plus encephalopathy plus hypoxemia + metapneumovirus (on biofire) nausea/vomiting on admission poss. Aspiration pneumonia/HCAP, positive MRSA nasal swab initially thought poss. Complicated UTI - u cultx - negative Colitis on CT rule out C. difficile given recent Keflex Rx for toe infection c. diff negative stool pcr negative (obtained 07/20/22) Blood cultures: negative in 48 hrs Patient was unresponsive on admission, then awake and alert, answering questions appropriately -> now pt awake and following few simple commands but not talking much -? 2/2 medication? - cefepime will be switched - discussed w/ pharmacy. Will also obtain CT head. Daughter updated. Afebrile now, blood pressure still on the lower side CT abdomen pelvis: 1. Airspace opacities at the lung bases. Appearance concerning for a component of pneumonia. 2. Mild colonic mucosal thickening consistent with nonspecific colitis. Continue with - vancomycin plus meropenem day --> switch meropenem to cefepime Nebs 4 times daily IV half NSS initially started on admission given hypernatremia Sodium now improved, IVF stopped. pt w/ poor oral intake -> resumed IVF hx CVA hypertension, BP on the lower side, on IV fluids, cont. to monitor hyperlipidemia, on statin Rx seizure disorder on Tegretol hx astrocytoma status post surgery/chemoradiation traumatic brain as per records GERD on PPI hypothyroidism, TSH from 2 months ago noted to be low TSH 0.07, free T41.9-subclinical hyperthyroidism Follow-up as an outpatient past tobacco abuse DVT prophylaxis. SCDs Re: hx Brain tumor DNR/DNI per admitting provider's discussion w/family Disposition - [facility] Admission and Anticipated Discharge Date Admission Date: July 14, 2022 Subjective Follow-up for sepsis, metabolic encephalopathy, hypoxia , + metapneumovirus , poss. asp. pna, colitis, n/v on admission Seen sitting up in bed, not in distress, currently on RA No signs of distress, or pain However she opens her eyes and looks at me when I ask her, she squeezes my hand when I ask her but does not really answer me much. Per LODE MINER at the bedside, patient did not eat breakfast this morning yet. Contacted patient's daughter to inquire about any changes in mental status for her. Says that she saw patient Thursday evening, when they were visiting, and patient was eating supper with her, however she was confused. Patient was able to talk more before when I saw her. ? possibly secondary to med/ cefepime? discussed w/ pharmacy and will switch. Discussed w/ daughter to possibly obtain CT scan of the head and she is also in agreement. + cough Review of Systems Review of Systems: Unobtainable due to cognitive status Physical Exam Physical Exam: General- awake and alert, chronically ill appearing, appears weak, not in distress Eyes- anicteric Neck- no JVD Lungs- + rhonchi, no wheezing, good air entry bilaterally, + cough Heart- normal rate, regular rhythm; no murmurs Abdomen- normal bowel sounds, nondistended, soft, nontender Extremities- no pretibial edema Neuro- drowsy, but following simple commands, but not answering much, + genera lized weakness, L-sided hemiparesis Skin- warm & dry Results & Data Results & Data Vital Signs (Past 12 Hours) Vital Signs Temp Pulse Pulse Resp BP Pulse Ox O2 Del Method 07/21/22 07:56 37.2 C 79 16 105/69 94 Room Air 07/21/22 07:40 68 18 94 Nasal Cannula 07/21/22 03:16 37.5 C 71 20 99/64 L 94 Nasal Cannula 07/21/22 00:28 67 Room Air, Nasal Cannula 07/21/22 00:14 72 07/20/22 21:00 Nasal Cannula 07/20/22 22:52 37.1 C 74 16 106/70 96 Nasal Cannula O2 Flow Rate 07/21/22 07:56 07/21/22 07:40 2 07/21/22 03:16 1.5 07/21/22 00:28 07/21/22 00:14 07/20/22 21:00 1.5 07/20/22 22:52 Laboratory Results 07/21/22 07/21/22 07/21/22 Range/Units 07:22 07:22 07:22 WBC 5.15 (4.8-10.8) K/ul RBC 3.56 L (4.20-5.40) M/uL Hgb 11.7 L (12.0-16.0) g/dl Hct 34.5 L (37.0-47.0) % MCV 96.9 (80.0-100.0) fL MCH 32.9 (25.0-34.0) pg MCHC 33.9 (32.0-36.0) g/dL RDW Std Deviation 44.2 (36.4-46.3) fL RDW Coeff of Claudio 12.4 (11.5-14.5) % Plt Count 227 (130-400) K/uL MPV 10.2 (9.4-12.4) fL Sodium (136-145) mmol/L Potassium (3.5-5.1) mmol/L Chloride (98-107) mmol/L Carbon Dioxide (21-32) mmol/L Anion Gap (3-11) BUN (6-23) mg/dl Creatinine (0.6-1.2) mg/dl Est Cr Clr Drug Dosing ml/min Est GFR ( Amer) ml/min Est GFR (Non-Af Amer) ml/min BUN/Creatinine Ratio (10-20) Glucose (70-99(Fasting)) mg/dl Calcium (8.6-10.3) mg/dl Phosphorus (2.5-4.9) mg/dl Magnesium (1.7-2.4) mg/dl Procalcitonin 21.50 H (0-0.5) ng/ml Stl C. cayetanensis PCR (NotDetected) Stool Rotavirus A PCR (NotDetected) Stl Adenov F 40/41 PCR (NotDetected) Stool Astrovirus (PCR) (NotDetected) Stool Campylobacter PCR (NotDetected) Stool Cryptosporidium PCR (NotDetected) Stl E.coli Shiga Tox PCR (NotDetected) Stl Enterotoxigenic E PCR (NotDetected) Stool EPEC (PCR) (NotDetected) Stool EAEC (PCR) (NotDetected) Stl E. histolytica PCR (NotDetected) Stool Giardia Lamblia PCR (NotDetected) Stool Salmonella PCR (NotDetected) Stool Sapovirus (PCR) (NotDetected) Stl P. shigelloides PCR (NotDetected) Stl Shigella/EIEC PCR (NotDetected) St Y.enterocolitica PCR (NotDetected) Stool Vibrio (PCR) (NotDetected) Stl Vibrio cholerae PCR (NotDetected) Stl Norovirus GI/GII PCR (NotDetected) Random Vancomycin 30.8 H* (10-20) mcg/ml 07/21/22 07/20/22 Range/Units 07:22 15:32 WBC (4.8-10.8) K/ul RBC (4.20-5.40) M/uL Hgb (12.0-16.0) g/dl Hct (37.0-47.0) % MCV (80.0-100.0) fL MCH (25.0-34.0) pg MCHC (32.0-36.0) g/dL RDW Std Deviation (36.4-46.3) fL RDW Coeff of Claudio (11.5-14.5) % Plt Count (130-400) K/uL MPV (9.4-12.4) fL Sodium 141 (136-145) mmol/L Potassium 3.5 (3.5-5.1) mmol/L Chloride 110 H (98-107) mmol/L Carbon Dioxide 26 (21-32) mmol/L Anion Gap 5 (3-11) BUN 8 (6-23) mg/dl Creatinine 0.44 L (0.6-1.2) mg/dl Est Cr Clr Drug Dosing 112.5 ml/min Est GFR ( Amer) 127.2 ml/min Est GFR (Non-Af Amer) 109.7 ml/min BUN/Creatinine Ratio 18.2 (10-20) Glucose 79 (70-99(Fasting)) mg/dl Calcium 7.8 L (8.6-10.3) mg/dl Phosphorus 2.2 L (2.5-4.9) mg/dl Magnesium 1.9 (1.7-2.4) mg/dl Procalcitonin (0-0.5) ng/ml Stl C. cayetanensis PCR Not Detected (NotDetected) Stool Rotavirus A PCR Not Detected (NotDetected) Stl Adenov F 40/41 PCR Not Detected (NotDetected) Stool Astrovirus (PCR) Not Detected (NotDetected) Stool Campylobacter PCR Not Detected (NotDetected) Stool Cryptosporidium PCR Not Detected (NotDetected) Stl E.coli Shiga Tox PCR Not Detected (NotDetected) Stl Enterotoxigenic E PCR Not Detected (NotDetected) Stool EPEC (PCR) Not Detected (NotDetected) Stool EAEC (PCR) Not Detected (NotDetected) Stl E. histolytica PCR Not Detected (NotDetected) Stool Giardia Lamblia PCR Not Detected (NotDetected) Stool Salmonella PCR Not Detected (NotDetected) Stool Sapovirus (PCR) Not Detected (NotDetected) Stl P. shigelloides PCR Not Detected (NotDetected) Stl Shigella/EIEC PCR Not Detected (NotDetected) St Y.enterocolitica PCR Not Detected (NotDetected) Stool Vibrio (PCR) Not Detected (NotDetected) Stl Vibrio cholerae PCR Not Detected (NotDetected) Stl Norovirus GI/GII PCR Not Detected (NotDetected) Random Vancomycin (10-20) mcg/ml Medications Administered Current Inpatient Medications Acetaminophen (Acetaminophen 325 Mg Tab) 650 mg PO Q6H PRN PRN Reason: Fever/pain Stop: 08/17/22 21:27 Last Admin: 07/19/22 17:39 Dose: 650 mg Bisacodyl (Bisacodyl 10 Mg Supp) 10 mg SD DAILY PRN PRN Reason: Constipation Stop: 08/19/22 12:49 Carbamazepine (Carbamazepine 200 Mg Tabcr) 200 mg PO BID [facility] Stop: 08/14/22 08:59 Last Admin: 07/20/22 20:52 Dose: 200 mg Cyanocobalamin (Cyanocobalamin (B-12) 500 Mcg Tablet) 500 mcg PO QAM [facility] Stop: 08/14/22 08:59 Last Admin: 07/20/22 08:24 Dose: 500 mcg Guaifenesin (Guaifenesin Sugar Free 200 Mg/10 Ml Udc) 200 mg PO Q6H [facility] Stop: 08/15/22 13:14 Last Admin: 07/21/22 00:51 Dose: Not Given Promethazine HCl 6.25 mg/ (Sodium Chloride) 50.25 mls @ 201 mls/hr IV Q6H PRN PRN Reason: Nausea And Vomiting Stop: 08/13/22 22:15 Last Infusion: 07/15/22 07:36 Dose: Infused Sodium Chloride (1/2 Nss) 1,000 mls @ 100 mls/hr IV .Q10H [facility] Stop: 08/15/22 07:29 Last Infusion: 07/17/22 13:56 Dose: Infused Dextrose/Sodium Chloride (D5w And 1/2nss) 1,000 mls @ 80 mls/hr IV .[id number] [facility] Stop: 08/17/22 08:44 Last Infusion: 07/19/22 13:52 Dose: Infused Cefepime HCl 2,000 mg/ Syringe 20 mls @ 5 mls/min IV Q8H [facility] Stop: 07/25/22 08:59 Last Admin: 07/21/22 00:51 Dose: 5 mls/min Potassium Chloride/Dextrose/Sod Cl (D5w And 1/2nss + 20meq Kcl) 20 meq in 1,000 mls @ 80 mls/hr IV .[id number] [facility]; Protocol Stop: 08/19/22 17:44 Last Admin: 07/21/22 06:19 Dose: 80 mls/hr Ipratropium [place] (Ipratropium [place] Neb Soln 0.02% 2.5 Ml Vial) 0.5 mg INH Q6R [facility] Stop: 08/14/22 08:29 Last Admin: 07/21/22 07:40 Dose: 0.5 mg Lactobacillus Acidophilus (Lactobacillus Acidophilus 1 Gm Pack) 1 gm PO TIDM [facility] Stop: 08/15/22 18:19 Last Admin: 07/20/22 16:47 Dose: 1 gm Levalbuterol HCl (Levalbuterol 1.25 Mg/3 Ml Neb) 1.25 mg NEB Q6R [facility] Stop: 08/14/22 08:29 Last Admin: 07/21/22 07:40 Dose: 1.25 mg Levothyroxine Sodium (Levothyroxine Sodium 50 Mcg Tablet) 50 mcg PO DAILYBB [facility] Stop: 08/14/22 06:29 Last Admin: 07/21/22 06:18 Dose: 50 mcg Magnesium Oxide (Magnesium Oxide 400 Mg Tab) 400 mg PO QAM [facility] Stop: 08/17/22 16:59 Last Admin: 07/20/22 08:24 Dose: 400 mg Miconazole Nitrate (Miconazole Nitrate Powder 85 Gm) 1 appln EXT PRN PRN PRN Reason: Affected Skin Folds Stop: 08/18/22 10:04 Last Admin: 07/20/22 09:56 Dose: 1 appln Miscellaneous Information (Vancomycin Consult Active) 1 each N/A UD PRN PRN Reason: Consult Stop: 08/14/22 07:48 Multivitamins (Multivitamin Tab) 1 tab PO QAM [facility] Stop: 08/14/22 08:59 Last Admin: 07/20/22 08:25 Dose: 1 tab Pantoprazole Sodium (Pantoprazole 40 Mg Tab) 40 mg PO DAILYBB [facility] Stop: 08/14/22 06:29 Last Admin: 07/21/22 06:18 Dose: 40 mg Polyethylene Glycol (Polyethylene (Miralax) 17 Gm Pack) 17 gm PO DAILY PRN PRN Reason: Constipation Stop: 08/16/22 22:44 Potassium Phosphate (Potassium Phos 3 Mmol/1 Ml Infusion) 15 mmol IV NOW STA Stop: 07/21/22 08:34 Rosuvastatin Calcium (Rosuvastatin Calcium 20 Mg Tab) 40 mg PO HS [facility] Stop: 08/14/22 20:59 Last Admin: 07/20/22 20:52 Dose: 40 mg Senna/Docusate Sodium (Docusate Sodium/Senna 50/8.6mg Tab) 1 tab PO QAM [facility] Stop: 08/16/22 22:44 Last Admin: 07/20/22 08:24 Dose: 1 tab
[2022-07-21] MEDS ORDERED: POTASSIUM PHOSPHATE 15 MMOL in SODIUM CHLORIDE 0.9% 250 ML IV ONE (08:45)
--- NOTE | 2022-07-21 09:19 | XRay Report ---
XR chest 1V portable HISTORY: 61 years-old Female follow up acute shortness of breath COMPARISON: Chest radiograph 07/18/2022 TECHNIQUE: AP view of the chest FINDINGS: Cardiac mediastinal and hilar silhouettes are within normal limits. No pneumothorax, pleural effusion , airspace consolidation or pulmonary edema. Degenerative changes of the shoulders and spine. IMPRESSION: No acute process. ACT 112: Negative or not required by law. The above report was generated using voice recognition software. It may contain grammatical, syntax o r spelling errors. Electronically signed by: Isaac Tubbs M.D. 07/21/2022 9:17 AM
[2022-07-21] MEDS: LACTOBACILLUS ACIDOPHILUS 1 GM PACK PO SCH ×3 (09:44→16:36)
[2022-07-21] MEDS: CYANOCOBALAMIN (B-12) 500 MCG TABLET PO SCH (09:44)
[2022-07-21] MEDS: DOCUSATE SODIUM/SENNA 50/8.6MG TAB PO SCH (09:44)
[2022-07-21] MEDS: MULTIVITAMIN TAB PO SCH (09:45)
[2022-07-21] MEDS: MAGNESIUM OXIDE 400 MG TAB PO SCH (09:45)
--- NOTE | 2022-07-21 11:08 | CT Scan Report ---
CT head/brain wo con CLINICAL HISTORY: 61 years-old Female with AMS. Acutely altered mental status TECHNIQUE: Multiple axial CT images of the head were obtained without contrast. A dose lowering tech nique was utilized adhering to the principles of ALARA. CT DOSE: 703.85 mGy.cm COMPARISON: 07/14/2022 FINDINGS: Motion degraded exam. No acute intracranial hemorrhage, new intra-axial mass, hydrocephalus, territor ial ischemia or abnormal extra-axial collection. Involutional changes with chronic microvascular isch emic disease. Chronic left thalamic lacunar infarct. CSF attenuating focus in the right frontal lobe lobe again noted measuring up to 7.9 cm with unchanged mass effect resulting in unchanged [address] midline shift at the level of the frontal lobe. Unchanged calcified focus within the right basal g anglia. No acute calvarial fracture. Heterogeneous appearance of the bone marrow. Right-sided craniotomy. Mo derate mucosal thickening in the paranasal sinuses with maxillary and less sphenoid air-fluid levels IMPRESSION: 1. Motion degraded exam without acute intracranial abnormality identified. 2. Chronic findings as above. 3. Acute sinusitis. ACT 112: Negative or not required by law. The above report was generated using voice recognition software. It may contain grammatical, syntax o r spelling errors. Electronically signed by: Isaac Tubbs M.D. 07/21/2022 11:06 AM
--- NOTE | 2022-07-21 13:22 | Pharmacy Report ---
Pharmacy PK ABX Note - Date of Service July 21, 2022 - Assessment and Plan Assessment 07/21: * Day #7 of vancomycin - discussed possible end of therapy today with hospitalist, but provider requested 10 day duration of therapy due to current patient status. Altered mental status believed to be related to cefepime and broadened to meropenem for 3 more days. 07/18: * Patient is on Vancomycin 750 mg IV q12hr. Delayed AM dose of Vancomycin today since trough resulted at 22.1 mcg/ml this AM. However, extrapolated trough right before dose = 14 mcg/ml. Therefore, continued with same dosing. * Stop date for Vancomycin is currently for 07/23/22 for 10 days of therapy. 07/16/22: * Preliminary blood cultures and urine culture no growth, continues on oxygen 3 L/min this AM, Cdiff negative, lactate trending down * Continues on broad spectrum abx with vancomycin and meropenem 07/15/22: * 61 year old F started on vancomycin and meropenem for concerns for sepsis/aspiration pneumonia/HCAP/UTI. Had been on keflex prior to admission for toe infection. PMHx significant for CVA, seizure disorder, astrocytoma s/p surgery/chemoradiation, traumatic brain injury. Per notes, she [facility] and was not responding verbally as she normally does so was sent to hospital for evaluation. She had subsequent nausea/vomiting in ER. CT of lung concerning for possible pneumonia, also potential nonspecific colitis per report. Recent hospitalization 06/04-06/07 for hypernatremia. Febrile on admission, elevated procalcitonin - blood cultures and urine culture pending, positive MRSA swab. Plan Vancomycin * Current regimen: 750 mg IV every 12 hours * Random level obtained 07/21/22 resulted as 30.8 mcg/mL with follow-up level at 1200 of 25.7 mcg/mL * Calculated ke = 0.04 with 17 hour half-life. Level predicted to be 17.5 ~2200. * Change to 1000 mg IV every 24 hours * Will repeat level in the next 48-72 hours if therapy is continued and/or change in patient clinical status Meropenem * 500 mg IV q6h - appropriate, no change Pharmacy has transitioned to AUC monitoring for vancomycin. AUC/LAWRENCE is the preferred PK/PD target and is associated with decreased risk of nephrotoxicity compared to traditional trough targets.
[2022-07-21] MEDS: MEROPENEM 500 MG in SYRINGE 0 ML IV SCH (17:42)
[2022-07-21] MEDS: VANCOMYCIN HCL 1,000 MG in SODIUM CHLORIDE 0.9% 250 ML IV SCH (20:56)
[2022-07-21] MEDS: ROSUVASTATIN CALCIUM 20 MG TAB PO SCH (20:58)
[2022-07-22] MEDS: MEROPENEM 500 MG in SYRINGE 0 ML IV SCH ×4 (00:50→18:39)
[2022-07-22] MEDS: guaiFENesin SUGAR FREE 200 MG/10 ML UDC PO SCH ×4 (00:58→21:26)
[2022-07-22] MEDS: IPRATROPIUM BROMIDE NEB SOLN 0.02% 2.5 ML VIAL INH SCH ×4 (01:30→19:36)
[2022-07-22] MEDS: LEVALBUTEROL 1.25 MG/3 ML NEB NEB SCH ×4 (01:31→19:36)
[2022-07-22] MEDS: PANTOprazole 40 MG TAB PO SCH (06:05)
[2022-07-22] MEDS: LEVOTHYROXINE SODIUM 50 MCG TABLET PO SCH (06:05)
[2022-07-22 06:36] LABS: Hematocrit (blood only) 32.6 % (37.0-47.0); Hemoglobin 11.2 g/dl (12.0-16.0); Mean Corpuscular Hemoglobin 32.9 pg (25.0-34.0); Mean Corpuscular Hgb Conc 34.4 g/dL (32.0-36.0); Mean Corpuscular Volume 95.9 fL (80.0-100.0); Mean Platelet Volume 10.3 fL (9.4-12.4); Platelet Count 241 K/uL (130-400); RDW Coefficient of Variation 12.4 % (11.5-14.5); RDW Standard Deviation 43.4 fL (36.4-46.3); White Blood Count 5.83 K/ul (4.8-10.8)
[2022-07-22 06:52] LABS: BUN Creatinine Ratio 17.1 (10-20); Calcium 7.5 mg/dl (8.6-10.3); Creatinine Clr Calc Pharmacy 130.4 ml/min; Est GFR (African American) 130.1 ml/min; Est GFR (Non-African American) 112.3 ml/min; Magnesium 1.8 mg/dl (1.7-2.4); Potassium 3.1 mmol/L (3.5-5.1)
--- NOTE | 2022-07-22 09:00 | Hospitalist Progress Note ---
Date of Service July 22, 2022 Assessment & Plan (1) Severe sepsis: Plan: 61-year-old female with CVA, hypertension, hyperlipidemia, seizure disorder, astrocytoma status post surgery/chemoradiation, traumatic brain as per records, GERD, hypothyroidism, chronic urticaria as per records, past tobacco abuse presenting with altered mental status (1) Severe sepsis, metabolic encephalopathy likely secondary to bilateral pneumonia, UTI Plan: SIRS plus lactic acidosis plus encephalopathy plus hypoxemia + metapneumovirus (on biofire) nausea/vomiting on admission poss. Aspiration pneumonia/HCAP, positive MRSA nasal swab initially thought poss. Complicated UTI - u cultx - negative Colitis on CT rule out C. difficile given recent Keflex Rx for toe infection c. diff negative stool pcr negative (obtained 07/20/22) Blood cultures: negative in 48 hrs Metabolic encephalopathy Patient was unresponsive on admission, then awake and alert, answering questions appropriately -> now pt awake and following few simple commands but not talking much -? 2/2 medication? - cefepime switched to meropenem - discussed w/ pharmacy. CT head obtained and negative. Daughter /family updated. Afebrile now, blood pressure still on the lower side CT abdomen pelvis: 1. Airspace opacities at the lung bases. Appearance concerning for a component of pneumonia. 2. Mild colonic mucosal thickening consistent with nonspecific colitis. Continue with - vancomycin plus meropenem --> switched meropenem to cefepime - as pt's mental status changed - switched cefepime back to meropenem (07/21/22) Nebs 4 times daily IV half NSS initially started on admission given hypernatremia Sodium now improved, pt w/ poor oral intake -> resume IVF prn hx CVA hypertension, BP on the lower side, on IV fluids, cont. to monitor hyperlipidemia, on statin Rx seizure disorder on Tegretol hx astrocytoma status post surgery/chemoradiation traumatic brain as per records GERD on PPI hypothyroidism, TSH from 2 months ago noted to be low TSH 0.07, free T41.9-subclinical hyperthyroidism Follow-up as an outpatient past tobacco abuse DVT prophylaxis. SCDs Re: hx Brain tumor DNR/DNI per admitting provider's discussion w/family Disposition - Plan to return to care home facility when medically stable Admission and Anticipated Discharge Date Admission Date: July 14, 2022 Subjective Follow-up for sepsis, metabolic encephalopathy, hypoxia , + metapneumovirus , poss. asp. pna, colitis, n/v on admission Seen sitting up in bed, not in distress, currently on RA No signs of distress, or pain Opens her eyes and moves extremities (r-side) but does not talk much. CT head obtained yesterday unchanged. Discussed w/ family over the phone and at the bedside yesterday -they were able to feed her some mashed potatoes in the evening. Today essentially unchanged. ? possibly secondary to med/ cefepime? discussed w/ pharmacy and switched. If continues to be w/o improvement, will further discuss w/ neurology. + cough Review of Systems Review of Systems: Unobtainable due to cognitive status Physical Exam Physical Exam: General- chronically ill appearing, appears weak, not in distress Eyes- anicteric Neck- no JVD Lungs- + rhonchi, no wheezing, good air entry bilaterally, + cough Heart- normal rate, regular rhythm; no murmurs Abdomen- normal bowel sounds, nondistended, soft, nontender Extremities- no pretibial edema Neuro- drowsy, but opens her eyes and moves r-sided extremities. + generalized weakness, L-sided hemiparesis Skin- warm & dry Results & Data Results & Data Vital Signs (Past 12 Hours) Vital Signs Temp Pulse Pulse Resp BP Pulse Ox O2 Del Method 07/22/22 07:39 36.6 C 72 20 108/72 95 Room Air 07/22/22 07:13 82 18 93 Room Air 07/22/22 03:38 37.1 C 86 20 125/89 95 Room Air 07/22/22 00:00 77 07/21/22 23:13 83 16 106/63 91 Room Air Laboratory Results 07/22/22 07/22/22 07/21/22 Range/Units 05:49 05:49 12:00 WBC 5.83 (4.8-10.8) K/ul RBC 3.40 L (4.20-5.40) M/uL Hgb 11.2 L (12.0-16.0) g/dl Hct 32.6 L (37.0-47.0) % MCV 95.9 (80.0-100.0) fL MCH 32.9 (25.0-34.0) pg MCHC 34.4 (32.0-36.0) g/dL RDW Std Deviation 43.4 (36.4-46.3) fL RDW Coeff of Claudio 12.4 (11.5-14.5) % Plt Count 241 (130-400) K/uL MPV 10.3 (9.4-12.4) fL Sodium 140 (136-145) mmol/L Potassium 3.1 L (3.5-5.1) mmol/L Chloride 111 H (98-107) mmol/L Carbon Dioxide 23 (21-32) mmol/L Anion Gap 6 (3-11) BUN 7 (6-23) mg/dl Creatinine 0.41 L (0.6-1.2) mg/dl Est Cr Clr Drug Dosing 130.4 ml/min Est GFR ( Amer) 130.1 ml/min Est GFR (Non-Af Amer) 112.3 ml/min BUN/Creatinine Ratio 17.1 (10-20) Glucose 85 (70-99(Fasting)) mg/dl Calcium 7.5 L (8.6-10.3) mg/dl Phosphorus 2.0 L (2.5-4.9) mg/dl Magnesium 1.8 (1.7-2.4) mg/dl Random Vancomycin 25.7 H* (10-20) mcg/ml Medications Administered Current Inpatient Medications Acetaminophen (Acetaminophen 325 Mg Tab) 650 mg PO Q6H PRN PRN Reason: Fever/pain Stop: 08/17/22 21:27 Last Admin: 07/19/22 17:39 Dose: 650 mg Bisacodyl (Bisacodyl 10 Mg Supp) 10 mg [place] DAILY PRN PRN Reason: Constipation Stop: 08/19/22 12:49 Carbamazepine (Carbamazepine 200 Mg Tabcr) 200 mg PO BID [facility] Stop: 08/14/22 08:59 Last Admin: 07/21/22 20:57 Dose: 200 mg Cyanocobalamin (Cyanocobalamin (B-12) 500 Mcg Tablet) 500 mcg PO QAM [facility] Stop: 08/14/22 08:59 Last Admin: 07/21/22 09:44 Dose: Not Given Guaifenesin (Guaifenesin Sugar Free 200 Mg/10 Ml Udc) 200 mg PO Q6H [facility] Stop: 08/15/22 13:14 Last Admin: 07/22/22 06:04 Dose: 200 mg Promethazine HCl 6.25 mg/ (Sodium Chloride) 50.25 mls @ 201 mls/hr IV Q6H PRN PRN Reason: Nausea And Vomiting Stop: 08/13/22 22:15 Last Infusion: 07/15/22 07:36 Dose: Infused Potassium Chloride/Dextrose/Sod Cl (D5w And 1/2nss + 20meq Kcl) 20 meq in 1,000 mls @ 80 mls/hr IV .[id number] [facility]; Protocol Stop: 08/19/22 17:44 Last Admin: 07/21/22 23:21 Dose: 80 mls/hr Meropenem 500 mg/ Syringe 10 mls @ 2 mls/min IV Q6H [facility]; Protocol Stop: 07/24/22 17:59 Last Admin: 07/22/22 05:58 Dose: 2 mls/min Vancomycin HCl 1,000 mg/ (Sodium Chloride) 270 mls @ 200 mls/hr IV Q24H [facility]; Protocol Stop: 07/23/22 23:20 Last Infusion: 07/21/22 22:26 Dose: Infused Ipratropium [place] (Ipratropium [place] Neb Soln 0.02% 2.5 Ml Vial) 0.5 mg INH Q6R [facility] Stop: 08/14/22 08:29 Last Admin: 07/22/22 07:13 Dose: 0.5 mg Lactobacillus Acidophilus (Lactobacillus Acidophilus 1 Gm Pack) 1 gm PO TIDM [facility] Stop: 08/15/22 18:19 Last Admin: 07/21/22 16:36 Dose: 1 gm Levalbuterol HCl (Levalbuterol 1.25 Mg/3 Ml Neb) 1.25 mg NEB Q6R [facility] Stop: 08/14/22 08:29 Last Admin: 07/22/22 07:12 Dose: 1.25 mg Levothyroxine Sodium (Levothyroxine Sodium 50 Mcg Tablet) 50 mcg PO DAILYBB [facility] Stop: 08/14/22 06:29 Last Admin: 07/22/22 06:05 Dose: 50 mcg Magnesium Oxide (Magnesium Oxide 400 Mg Tab) 400 mg PO QAM [facility] Stop: 08/17/22 16:59 Last Admin: 07/21/22 09:45 Dose: Not Given Miconazole Nitrate (Miconazole Nitrate Powder 85 Gm) 1 appln EXT PRN PRN PRN Reason: Affected Skin Folds Stop: 08/18/22 10:04 Last Admin: 07/20/22 09:56 Dose: 1 appln Miscellaneous Information (Vancomycin Consult Active) 1 each N/A UD PRN PRN Reason: Consult Stop: 08/14/22 07:48 Multivitamins (Multivitamin Tab) 1 tab PO QAM [facility] Stop: 08/14/22 08:59 Last Admin: 07/21/22 09:45 Dose: Not Given Pantoprazole Sodium ([facility] 40 Mg Tab) [facility]: 08/14/22 06:29 Last Admin: 07/22/22 06:05 Dose: 40 mg Polyethylene Glycol (Polyethylene (Miralax) 17 Gm Pack) 17 gm PO DAILY PRN PRN Reason: Constipation Stop: 08/16/22 22:44 Rosuvastatin Calcium (Rosuvastatin Calcium 20 Mg Tab) 40 mg PO HS [facility] Stop: 08/14/22 20:59 Last Admin: 07/21/22 20:58 Dose: 40 mg Senna/Docusate Sodium (Docusate Sodium/Senna 50/8.6mg Tab) 1 tab PO QAM [facility] Stop: 08/16/22 22:44 Last Admin: 07/21/22 09:44 Dose: Not Given
[2022-07-22] MEDS ORDERED: POTASSIUM PHOS 3 MMOL/1 ML INFUSION IV STA (09:02)
[2022-07-22] MEDS ORDERED: POTASSIUM PHOSPHATE 15 MMOL in SODIUM CHLORIDE 0.9% 250 ML IV ONE (09:15)
[2022-07-22] MEDS: POTASSIUM CHLORIDE / WTR 10 MEQ/100 ML PLCT IV SCH ×3 (10:22→12:33)
[2022-07-22] MEDS: LACTOBACILLUS ACIDOPHILUS 1 GM PACK PO SCH ×3 (10:28→18:39)
[2022-07-22] MEDS: CYANOCOBALAMIN (B-12) 500 MCG TABLET PO SCH (10:28)
[2022-07-22] MEDS: DOCUSATE SODIUM/SENNA 50/8.6MG TAB PO SCH (10:28)
[2022-07-22] MEDS: MAGNESIUM OXIDE 400 MG TAB PO SCH (10:28)
[2022-07-22] MEDS: MULTIVITAMIN TAB PO SCH (10:29)
[2022-07-22] MEDS ORDERED: bisacodyL 10 MG SUPP PR STA (10:30)
[2022-07-22] MEDS ORDERED: ACETAMINOPHEN 1,000 MG/100 ML VIAL IV PRN (12:48)
[2022-07-22] MEDS: ASPIRIN 81 MG ECTAB PO SCH (19:10)
[2022-07-22] MEDS: D5W AND 1/2NSS + 20MEQ KCL 20 MEQ/1,000 ML BAG IV SCH (21:20)
[2022-07-22] MEDS: ROSUVASTATIN CALCIUM 20 MG TAB PO SCH (21:26)
[2022-07-22] MEDS: VANCOMYCIN HCL 1,000 MG in SODIUM CHLORIDE 0.9% 250 ML IV SCH (21:27)
[2022-07-23] MEDS: IPRATROPIUM BROMIDE NEB SOLN 0.02% 2.5 ML VIAL INH SCH (00:57)
[2022-07-23] MEDS: LEVALBUTEROL 1.25 MG/3 ML NEB NEB SCH (00:57)
[2022-07-23] MEDS: MEROPENEM 500 MG in SYRINGE 0 ML IV SCH ×4 (01:09→17:49)
[2022-07-23] MEDS: guaiFENesin SUGAR FREE 200 MG/10 ML UDC PO SCH ×4 (01:09→20:55)
[2022-07-23] MEDS ORDERED: LEVALBUTEROL 1.25 MG/3 ML NEB NEB PRN (01:31)
[2022-07-23] MEDS ORDERED: IPRATROPIUM BROMIDE NEB SOLN 0.02% 2.5 ML VIAL INH PRN (01:31)
[2022-07-23] MEDS: PANTOprazole 40 MG TAB PO SCH (06:00)
[2022-07-23] MEDS: LEVOTHYROXINE SODIUM 50 MCG TABLET PO SCH (06:00)
[2022-07-23] MEDS: MULTIVITAMIN TAB PO SCH (09:53)
[2022-07-23] MEDS: DOCUSATE SODIUM/SENNA 50/8.6MG TAB PO SCH (09:53)
[2022-07-23] MEDS: ASPIRIN 81 MG ECTAB PO SCH (09:54)
[2022-07-23] MEDS: LACTOBACILLUS ACIDOPHILUS 1 GM PACK PO SCH ×3 (09:54→16:48)
[2022-07-23] MEDS: CYANOCOBALAMIN (B-12) 500 MCG TABLET PO SCH (09:54)
[2022-07-23] MEDS: MAGNESIUM OXIDE 400 MG TAB PO SCH (09:55)
[2022-07-23] MEDS: POTASSIUM CHLORIDE CRTAB 20 MEQ TABCR PO SCH ×2 (10:54→11:43)
--- NOTE | 2022-07-23 11:34 | Neurology Consultation ---
Date of Consultation July 23, 2022 Assessment & Plan (1) History of astrocytoma: (2) History of seizures: (3) Acute encephalopathy: (4) Severe sepsis: Plan this patient has a history of a right frontal astrocytoma removal in 1996. This was a rather large resection and it was followed by chemotherapy of unknown type and significant radiation therapy to the head. 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 This is likely secondary to post radiation vascular ischemia. She has a history of postoperative seizures, well controlled on current dose of carbamazepine and the level is therapeutic. She has had sepsis this hospitalization with encephalopathy. Today she is starting to talk some and follow commands. There are no new neurologic issues that I am aware. Recommendations: 1. MRI of the brain with and without contrast and compare to previous. 2. I will follow. I do not believe the patient needs a lumbar puncture or other testing at this time. Overall, I spent a total of 75 minutes with this case including review of records, review of MRI films from the past, review of CT films currently, direct evaluation the patient at bedside, reports generation, discussion of the case with the patient's daughter via telephone, and discussion of the case with RN at bedside and Dr. Soler, including differential diagnosis and treatment options. History of Present Illness Reason for Consultation: Patient is a 61-year-old, who I was asked to see at the request of Dr. Xie, for neurologic consultation regarding acute encephalopathy and other issues Requesting Physician: Dr. Xie Attending Physician: Alex Soler MD History of Present Illness this patient has a complicated neurologic history. I spoke with the patient's daughter via the telephone who added a lot of history. In 1996 she underwent a right frontal astrocytoma removal by a Dr. Jhonny Weems at [facility] in [place]. A large portion of the right frontal lobe was removed. She underwent chemotherapy (unknown agent ) and radiation. Apparently she was "over radiated" and had to spend some time in [facility] because of this. after her procedure she"Was doing very well". 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 Her arms and legs worked well. She did go on social security disability. Prior to 2012 ( the year her mother ) she is described as being well. She had seizures after her surgery but has been well controlled on carbamazepine for years. After 2012 she gradually was getting worse with memory issues and was not doing well with handling checkbook and bills, and was not taking her medications regularly. She was starting to fall quite a bit as well. About 5 years ago she started falling more frequently and was talking slower. Her left side was starting to get a little bit weak. She has been in [facility] since 2017. again, she was gradually getting worse and by 2019 was paralyzed on the left side. She saw her neurology neurosurgeons at [place] who felt that she was having post radiation vascular issues /strokes. In May of 2018 she had a TIA. She is followed closely at [place] and her most recent MRI was in March of 2022. This showed no change or recurrence of tumor. Patient was admitted July 14 with decreased responsiveness and fever. She had sepsis and he is MRSA positive and was noted to have Human Metapneumovirus. She has been without acute encephalopathy and decreased responsiveness ever since. CT scan of the head showed no change and a repeat CT scan 2 days ago was similar. Chest x-ray was unremarkable. a carbamazepine level on admission was 8.7 ( normal). Laboratory studies have shown that her white counts have been low and she has mild anemia. Calcium and phosphorus are low the magnesium is normal. Procalcitonin July 21 was markedly elevated at 21.5. The patient tells me that she is not in pain but does have a "little bit" of a left-sided headache. Blood pressure is 117/71 and she is afebrile. Allergies Allergy/AdvReac Type Severity Reaction Status Date / Time Penicillins Allergy Intermediate HIVES Verified 07/14/22 20:09 cimetidine Allergy Unknown ON Verified 07/14/22 20:09 [facility] erythromycin base Allergy Unknown ON Verified 07/14/22 20:09 [place] [facility] phenytoin AdvReac Intermediate HIVES Verified 07/14/22 20:09 Home Medications Medication Instructions Recorded Confirmed Type acetaminophen 325 mg capsule 650 mg PO Q4 PRN Fever Or Pain 06/06/18 07/14/22 History (Tylenol) cholecalciferol (vitamin D3) 25 1,000 unit PO QAM 06/06/18 07/14/22 History mcg (1,000 unit) capsule (Vitamin D3) cyanocobalamin (vitamin B-12) 500 500 mcg PO QAM 06/06/18 07/14/22 History mcg tablet (Vitamin B-12) gabapentin 300 mg capsule 300 mg PO HS 06/06/18 07/14/22 History (Neurontin) levothyroxine 50 mcg tablet 50 mcg PO DAILYBB 06/06/18 07/14/22 History (Synthroid) linaclotide 72 mcg capsule 72 mcg PO HS 06/06/18 07/14/22 History (Linzess) multivitamin 1 tab PO QAM 06/06/18 07/14/22 History acetaminophen 500 mg tablet 500 mg PO TID 12/20/18 07/14/22 History cetyl and stearate 1 applic topical AMPM 12/20/18 07/14/22 History alcohol-propylen glycol-sls topical cream (Cetaphil topical cream) amlodipine 5 mg tablet (Norvasc) 2.5 mg PO QAM 12/19/20 07/14/22 History aspirin 81 mg tablet,delayed 81 mg PO QAM 12/19/20 07/14/22 History release cetirizine 10 mg tablet 10 mg PO BID 12/19/20 07/14/22 History modafinil 200 mg tablet 200 mg PO QAM 12/19/20 07/14/22 History omega 7-yhb-hxo-fish oil 1,200 mg 1 cap PO DAILY 12/19/20 07/14/22 History (144 mg-216 mg) capsule (Fish Oil) omeprazole 20 mg capsule,delayed 20 mg PO DAILYBB 12/19/20 07/14/22 History release potassium chloride 20 mEq 20 meq PO BID 12/19/20 07/14/22 History tablet,extended release rosuvastatin 40 mg tablet 40 mg PO HS 12/19/20 07/14/22 History sennosides 8.6 mg-docusate sodium 2 tab-cap PO BID 12/19/20 07/14/22 History 50 mg tablet (Senna Plus) miconazole nitrate 2 % topical 1 applic topical BID 06/04/22 07/14/22 History powder mirtazapine 15 mg tablet 15 mg PO HS 06/04/22 07/14/22 History neomycin-bacitracn Zn-polymyx 3.5 1 applic topical DAILY 06/04/22 07/14/22 History mg-400 unit-5,000 unit/gram top oint (Antibiotic([id number])) Magic Mix 1 applic topical TID 07/14/22 07/14/22 History Theracalazinc 1 applic topical TID 07/14/22 07/14/22 History carbamazepine 200 mg 200 mg PO BID 07/14/22 07/14/22 History capsule,extended release [id number] cephalexin 500 mg capsule 500 mg PO TID 07/14/22 07/14/22 History ketoconazole 2 % topical cream 1 applic topical BID 07/14/22 07/14/22 History Patient History Medical History Anxiety Benign paroxysmal positional vertigo, bilateral Chronic urticaria Depression Essential hypertension Fibromyalgia GERD (gastroesophageal reflux disease) History of astrocytoma s/p craniotomy/XRT/chemo History of peptic ulcer disease History of seizure disorder Hyperlipidemia Hypothyroidism Irritable bowel syndrome Left hemiparesis Osteoarthritis Stroke-like symptoms Surgical History History of carpal tunnel surgery of right wrist History of craniotomy History of D&C History of tubal ligation Family History Sister Family history of reaction to anesthesia Social History Smoking Status: Never smoker Tobacco Type: Cigarettes Do You Dip or Chew Tobacco: No; Hx Alcohol Use: No Hx Substance Use: No Preferred Language: Nepali Communication Ability: Impaired 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 Exam (Neuro) Physical Exam: The patient is right-handed. The patient is awake, alert, and attentive. Speech is Very slow to answer but she does say some words. There is no obvious a phase or dysarthria. She will follow one-step commands fairly quickly. She was oriented to her name but not time or place. Mood was reasonable and affect is appropriate. Memory cannot be accurately tested Pupils are 3 mm bilaterally and reactive to light. Extraocular eye muscles are intact without nystagmus. Visual acuity and visual oliver seem normal grossly to confrontation. There are no deficits to sensation in the face in all 3 distributions of the fifth cranial nerve bilaterally. Corneal reflexes are positive bilaterally. there may have been a left facial droop at the corner of the mouth but it did move well voluntarily with smile. Hearing seems normal bilaterally. Palate moves well without asymmetry. There is normal sternocleidomastoid and trapezius (shoulder shrug) strength bilaterally. Tongue is midline with good strength bilaterally. Neck has a full range of motion without discomfort. There are no cervical bruits bilaterally. There are no cranial or ocular bruits. Heart is without murmur. There is a regular rhythm and rate. Cervical, thoracic, and lumbar spine are nontender to palpation. Gait and stance could not be tested although sitting up she tended to lean some to the left With outstretched arms there is no drift on the right. There are no resting, postural, or action tremors on the right. There is no ataxia with finger to nose testing on the right. there is some decreased facility in the right hand. No abnormal involuntary movements were noted however. Motor strength Was 4/5 diffusely in the right upper extremity and right lower extremity. Tone was reasonable. In the left arm strength was 0/5 and tone was increased. In the left leg strength was 0/5 and tone was increased. Sensory examination is intact to touch and pin throughout all 4 limbs diffusely. Reflexes are 1/4 in the biceps, triceps, brachioradialis, quadriceps, and Achilles tendons bilaterally. There is no clonus bilaterally. Toes are downgoing with plantar stimulation bilaterally. Peripheral pulses are present and of normal quality distally in all 4 limbs. She has edema in the left arm and leg distally Results & Data Vital Signs (Past 12 Hours) Vital Signs Temp Pulse Pulse Resp BP BP Pulse Ox 07/23/22 07:49 37.0 C 96 H 18 117/71 91 07/23/22 00:00 75 07/23/22 03:28 37.3 C 83 18 117/78 96 07/23/22 00:57 70 18 92 07/22/22 23:10 37.7 C H 82 18 120/75 99 O2 Del Method O2 Flow Rate 07/23/22 07:49 Nasal Cannula 2 07/23/22 00:00 07/23/22 03:28 Nasal Cannula 3 07/23/22 00:57 Room Air 07/22/22 23:10 Nasal Cannula 3 PG Care Time/CCT Total # of Minutes Spent Total Time Spent with Patient: Total time spent is greater than 50% in coordination of care (as documented) at patient's floor/unit and/or counseling patient: Coding Level of Care Code 50765 INT INP/OBS CARE 3/75MIN Diagnoses History of astrocytoma Z85.841 History of seizures Z87.898 Acute encephalopathy G93.40 Severe sepsis A41.9; R65.20 Time Spent (min) 75
[2022-07-23 11:37] LABS: Hematocrit (blood only) 36.5 % (37.0-47.0); Hemoglobin 12.5 g/dl (12.0-16.0); Mean Corpuscular Hemoglobin 33.2 pg (25.0-34.0); Mean Corpuscular Hgb Conc 34.2 g/dL (32.0-36.0); Mean Corpuscular Volume 97.1 fL (80.0-100.0); Mean Platelet Volume 10.2 fL (9.4-12.4); Platelet Count 334 K/uL (130-400); RDW Coefficient of Variation 12.7 % (11.5-14.5); RDW Standard Deviation 45.3 fL (36.4-46.3); Red Blood Count 3.76 M/uL (4.20-5.40); White Blood Count 9.12 K/ul (4.8-10.8)
[2022-07-23 11:47] LABS: BUN Creatinine Ratio 13.3 (10-20); Calcium 8.1 mg/dl (8.6-10.3); Est GFR (African American) 126.2 ml/min; Est GFR (Non-African American) 108.9 ml/min; Phosphorus 1.8 mg/dl (2.5-4.9); Potassium 3.3 mmol/L (3.5-5.1)
[2022-07-23] MEDS: POT PHOSPHATE MONOBASIC W/ SOD TAB PO SCH ×3 (11:54→20:57)
[2022-07-23] MEDS ORDERED: POTASSIUM CHLORIDE 20 MEQ/15 ML UDC PO SCH (13:45)
[2022-07-23] MEDS: POTASSIUM CHLORIDE / WTR 10 MEQ/100 ML PLCT IV SCH ×4 (16:36→19:48)
--- NOTE | 2022-07-23 18:08 | Hospitalist Progress Note ---
Date of Service July 23, 2022 Assessment & Plan (1) Severe sepsis: Plan: 61-year-old female with CVA, hypertension, hyperlipidemia, seizure disorder, astrocytoma status post surgery/chemoradiation, traumatic brain as per records, GERD, hypothyroidism, chronic urticaria as per records, past tobacco abuse presenting with altered mental status. She is being managed for the following: Severe sepsis, metabolic encephalopathy likely secondary to bilateral pneumonia SIRS plus lactic acidosis plus encephalopathy plus hypoxemia + metapneumovirus (on biofire) nausea/vomiting on admission; CTAP w/ bibasal airspace opacities. poss. Aspiration pneumonia/HCAP, positive MRSA nasal swab initially thought poss. Complicated UTI - u cultx - negative Colitis on CT rule out C. difficile given recent Keflex Rx for toe infection--->>c. diff negative, stool pcr negative (obtained 07/20/22) Blood cultures: negative Continue with - vancomycin plus meropenem --> switched meropenem to cefepime - as pt's mental status changed - switched cefepime back to meropenem (07/21/22) [facility] 4 times daily Metabolic encephalopathy Patient was unresponsive on admission, then awake and alert, answering questions appropriately -> now pt awake and following few simple commands but not talking much -? 2/2 medication? - cefepime switched to meropenem. CT head obtained and negative. Daughter /family updated per prior attending. Afebrile now, blood pressure getting better. Pt slightly more communicative today, neuro evaled, recs is MRI brain w/wo con. Hypernatremia: at presentation. IV half NSS initially started on admission given hypernatremia Sodium now improved, pt w/ poor oral intake -> resume IVF prn Other chronic meds conditions: resume home meds as able. hx CVA hypertension, BP on the lower side, on IV fluids, cont. to monitor hyperlipidemia, on statin Rx seizure disorder on Tegretol hx astrocytoma status post surgery/chemoradiation traumatic brain as per records GERD on PPI hypothyroidism, TSH from 2 months ago noted to be low TSH 0.07, free T41.9-subclinical hyperthyroidism Follow-up as an outpatient past tobacco abuse DVT prophylaxis. SCDs Re: hx Brain tumor DNR/DNI per admitting provider's discussion w/family Disposition - Plan to return to care home facility when medically stable Admission and Anticipated Discharge Date Admission Date: July 14, 2022 Subjective Patient seen and examined at bedside as a follow-up of severe sepsis and metabolic encephalopathy likely secondary to bilateral pneumonia. Patient was lying semiupright in bed, on room air, not very much communicative and was not answering questions, the only words she spoke was " have a good day" when I was about to leave the room. Per RN, patient is little more communicative today, eats making choices with regard to food, is slow at eating. Patient does not appear to be in pain. ROS was not able. Physical Exam Physical Exam: General- chronically ill appearing, appears weak, not in distress Eyes- anicteric Neck- no JVD Lungs- + rhonchi, no wheezing, good air entry bilaterally, + cough, b/l crackles. Heart- normal rate, regular rhythm; no murmurs Abdomen- normal bowel sounds, nondistended, soft, nontender Extremities- no pretibial edema Neuro- more alert, opens her eyes and moves r-sided extremities. + generalized weakness, L-sided hemiparesis Skin- warm & dry Results & Data Results & Data Vital Signs (Past 12 Hours) Vital Signs Temp Pulse Resp BP Pulse Ox O2 Del Method O2 Flow Rate 07/23/22 15:00 Room Air 07/23/22 07:49 37.0 C 96 H 18 117/71 91 Nasal Cannula 2
[2022-07-23] MEDS: VANCOMYCIN HCL 1,000 MG in SODIUM CHLORIDE 0.9% 250 ML IV SCH (20:54)
[2022-07-23] MEDS: ROSUVASTATIN CALCIUM 20 MG TAB PO SCH (20:56)
[2022-07-23] MEDS ORDERED: GADOBUTROL 65ML VIAL IV ONE (22:51)
--- NOTE | 2022-07-23 23:44 | Magnetic Resonance Report ---
Exam(s): MRI HEAD W/WO Contrast IV Amt: 6cc gadavist EXAM: MR Head Without and With Intravenous Contrast CLINICAL HISTORY: Reason for exam: ams, h/o brain Sx. TECHNIQUE: Magnetic resonance images of the head/brain without and with intravenous contrast in multiple planes. CONTRAST: Patient received 6cc gadavist of IV contrast COMPARISON: CT head 07/21/2022. FINDINGS: Brain: Postsurgical change related to prior right frontal craniotomy for resection of right frontal lobes mass. 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 No enhancing tumor is seen in the resection cavity. Scattered foci of susceptibility artifact in the cerebral hemispheres likely represents chronic microhemorrhages. Possible cavernoma in the right cerebellum. Possible left posterior temporal/occipital convexity meningioma measuring up to 8 mm. Global parenchymal volume loss with chronic microvascular ischemic changes. Additionally, there is confluence white matter T2- weighted/FLAIR hyperintensities in the right cerebral hemisphere may be related to prior radiation therapy. Ventricles: See above. Bones/joints: See above. Sinuses: Severe paranasal sinus disease with internal fluid. Mastoid air cells: Right mastoid effusion. Orbits: Unremarkable as visualized. IMPRESSION: 1. No evidence of acute infarction. 2. Postsurgical and treatment related change from prior right frontal lobe mass resection. 3. Global parenchymal volume loss with chronic microvascular ischemic changes. 4. Possible left posterior temporal/occipital convexity meningioma measuring up to 8 mm. 5. Severe paranasal sinus disease with internal fluid. Recommend correlation for symptoms. Electronically signed by: Vincent Jhaveri MD 07/23/22 23:43 PM
[2022-07-24] MEDS: MEROPENEM 500 MG in SYRINGE 0 ML IV SCH ×5 (01:34→23:25)
[2022-07-24] MEDS: guaiFENesin SUGAR FREE 200 MG/10 ML UDC PO SCH ×5 (01:34→23:25)
[2022-07-24] MEDS: LEVOTHYROXINE SODIUM 50 MCG TABLET PO SCH (06:42)
[2022-07-24] MEDS: PANTOprazole 40 MG TAB PO SCH (06:42)
[2022-07-24 07:10] LABS: BUN Creatinine Ratio 15.4 (10-20); Calcium 7.9 mg/dl (8.6-10.3); Creatinine Clr Calc Pharmacy 126.9 ml/min; Est GFR (African American) 132.3 ml/min; Est GFR (Non-African American) 114.2 ml/min; Phosphorus 2.3 mg/dl (2.5-4.9); Potassium 3.7 mmol/L (3.5-5.1)
--- NOTE | 2022-07-24 07:13 | XRay Report ---
XR chest 1V portable HISTORY: 61 years-old Female f/u CXR acute shortness of breath COMPARISON: 07/21/2022 TECHNIQUE: AP view of the chest FINDINGS: Cardiomediastinal and hilar silhouettes are within normal limits. No pneumothorax, pleural effusion, airspace consolidation or pulmonary edema. Degenerative changes of the shoulders and spine. IMPRESSION: No acute process. ACT 112: Negative or not required by law. The above report was generated using voice recognition software. It may contain grammatical, syntax o r spelling errors. Electronically signed by: Isaac Tubbs M.D. 07/24/2022 7:12 AM
[2022-07-24] MEDS: POT PHOSPHATE MONOBASIC W/ SOD TAB PO SCH ×4 (08:59→20:54)
[2022-07-24] MEDS: ASPIRIN 81 MG ECTAB PO SCH (09:00)
[2022-07-24] MEDS: LACTOBACILLUS ACIDOPHILUS 1 GM PACK PO SCH ×3 (09:00→17:58)
[2022-07-24] MEDS: MAGNESIUM OXIDE 400 MG TAB PO SCH (09:00)
[2022-07-24] MEDS: DOCUSATE SODIUM/SENNA 50/8.6MG TAB PO SCH (09:01)
[2022-07-24] MEDS: CYANOCOBALAMIN (B-12) 500 MCG TABLET PO SCH (09:01)
[2022-07-24] MEDS: MULTIVITAMIN TAB PO SCH (09:02)
--- NOTE | 2022-07-24 16:10 | Hospitalist Progress Note ---
Date of Service July 24, 2022 Assessment & Plan (1) Severe sepsis: Plan: 61-year-old female with CVA, hypertension, hyperlipidemia, seizure disorder, astrocytoma status post surgery/chemoradiation, traumatic brain as per records, GERD, hypothyroidism, chronic urticaria as per records, past tobacco abuse presenting with altered mental status. She is being managed for the following: Severe sepsis, metabolic encephalopathy likely secondary to bilateral pneumonia SIRS plus lactic acidosis plus encephalopathy plus hypoxemia + metapneumovirus (on biofire) nausea/vomiting on admission; CTAP w/ bibasal airspace opacities. poss. Aspiration pneumonia/HCAP, positive MRSA nasal swab initially thought poss. Complicated UTI - u cultx - negative Colitis on CT rule out C. difficile given recent Keflex Rx for toe infection--->>c. diff negative, stool pcr negative (obtained 07/20/22) Blood cultures: negative Continue with - vancomycin plus meropenem --> switched meropenem to cefepime - as pt's mental status changed - switched cefepime back to meropenem (07/21/22) -- antibiotics will complete today, no further atb from [facility] 4 times daily Metabolic encephalopathy Patient was unresponsive on admission, then awake and alert, answering questions appropriately -> now pt awake and following few simple commands but not talking much -? 2/2 medication? - cefepime switched to meropenem. CT head obtained and negative. Daughter /family updated per prior attending. Afebrile now, blood pressure getting better. Pt slightly more communicative today, neuro evaled, recs is MRI brain w/wo con - no acute infarction noted. Hypernatremia: at presentation. IV half NSS initially started on admission given hypernatremia Sodium now improved, pt w/ poor oral intake -> resume IVF prn Other chronic meds conditions: resume home meds as able. hx CVA hypertension, BP on the lower side, on IV fluids, cont. to monitor hyperlipidemia, on statin Rx seizure disorder on Tegretol hx astrocytoma status post surgery/chemoradiation traumatic brain as per records GERD on PPI hypothyroidism, TSH from 2 months ago noted to be low TSH 0.07, free T41.9-subclinical hyperthyroidism Follow-up as an outpatient past tobacco abuse DVT prophylaxis. SCDs Re: hx Brain tumor DNR/DNI per admitting provider's discussion w/family Disposition - Plan to return to longterm facility when medically stable, likely [facility], will not need atb. Admission and Anticipated Discharge Date Admission Date: July 14, 2022 Subjective Patient seen and examined at bedside as a follow-up of severe sepsis and metabolic encephalopathy likely secondary to bilateral pneumonia. Patient was lying semiupright in bed, on room air, not very much communicative and was not answering questions, but appears alert but not oriented. Per RN, patient is little communicative but not much meaningful, has been eating better and had BM yesterday evening. Patient does not appear to be in pain. ROS was not able. Physical Exam Physical Exam: General- chronically ill appearing, appears weak, not in distress Eyes- anicteric Neck- no JVD Lungs- + rhonchi, no wheezing, good air entry bilaterally, + cough, b/l crackles. Heart- normal rate, regular rhythm; no murmurs Abdomen- normal bowel sounds, nondistended, soft, nontender Extremities- no pretibial edema Neuro- more alert, opens her eyes and moves r-sided extremities. + generalized weakness, L-sided hemiparesis Skin- warm & dry Results & Data Results & Data Vital Signs (Past 12 Hours) Vital Signs Temp Pulse Pulse Resp BP Pulse Ox O2 Del Method 07/24/22 14:28 94 H 07/24/22 07:15 69 07/24/22 11:54 37.4 C 86 18 106/71 98 Room Air 07/24/22 11:17 Room Air 07/24/22 07:56 37.2 C 78 18 116/80 96 Room Air
[2022-07-24] MEDS: ROSUVASTATIN CALCIUM 20 MG TAB PO SCH (20:54)
[2022-07-24] MEDS: ACETAMINOPHEN 325 MG TAB PO PRN (20:56)
[2022-07-25] MEDS: LEVOTHYROXINE SODIUM 50 MCG TABLET PO SCH (05:55)
[2022-07-25] MEDS: guaiFENesin SUGAR FREE 200 MG/10 ML UDC PO SCH ×2 (05:55→12:27)
[2022-07-25] MEDS: PANTOprazole 40 MG TAB PO SCH (05:55)
[2022-07-25] MEDS: MEROPENEM 500 MG in SYRINGE 0 ML IV SCH ×2 (05:56→11:05)
[2022-07-25 07:55] LABS: BUN Creatinine Ratio 20.5 (10-20); Calcium 7.7 mg/dl (8.6-10.3); Creatinine Clr Calc Pharmacy 126.9 ml/min; Est GFR (African American) 132.3 ml/min; Est GFR (Non-African American) 114.2 ml/min; Potassium 2.6 mmol/L (3.5-5.1)
[2022-07-25] MEDS ORDERED: POTASSIUM CHLORIDE CRTAB 20 MEQ TABCR PO STA (08:32)
[2022-07-25] MEDS: LACTOBACILLUS ACIDOPHILUS 1 GM PACK PO SCH ×2 (09:18→11:05)
[2022-07-25] MEDS: MULTIVITAMIN TAB PO SCH (09:23)
[2022-07-25] MEDS: DOCUSATE SODIUM/SENNA 50/8.6MG TAB PO SCH (09:23)
[2022-07-25] MEDS: MAGNESIUM OXIDE 400 MG TAB PO SCH (09:24)
[2022-07-25] MEDS: ASPIRIN 81 MG ECTAB PO SCH (09:24)
[2022-07-25] MEDS: CYANOCOBALAMIN (B-12) 500 MCG TABLET PO SCH (09:25)
[2022-07-25] MEDS: POT PHOSPHATE MONOBASIC W/ SOD TAB PO SCH (09:30)
[2022-07-25] MEDS: POTASSIUM CHLORIDE / WTR 10 MEQ/100 ML PLCT IV SCH ×4 (09:39→13:55)
[2022-07-25] MEDS: ACETAMINOPHEN 325 MG TAB PO PRN (12:32)
--- NOTE | 2022-07-25 13:52 | Discharge Summary ---
Date of Service July 25, 2022 Admission HPI Per Admitting Provider History obtained from records. Unable to obtain history from patient secondary to obtunded state. Medical history significant for CVA, hypertension, hyperlipidemia, seizure disorder, astrocytoma status post surgery/chemoradiation, traumatic brain as per records, GERD, hypothyroidism, chronic urticaria as per records, past tobacco abuse. Last confinement May 2022 for hyponatremia and E. coli UTI. Aspiration precautions during confinement. Recommended minced diet and moist IDDSI with mildly nectar thick liquids. [facility] for great toe infection. Patient noted to be not less responsive today. Subsequent nausea and emesis. Noted to be hypoxemic. Patient brought to ER for evaluation. Patient unable to answer questions regarding headache, chest pain, SOB, cough, abdominal pain, dysuria symptoms. Vancomycin and cefepime administered at the ER. Medical History as above Surgical History : Carpal tunnel surgery, right frontal lobectomy, D&C, BTL, for holding, tonsillectomy Family History : Heart disease, hyperthyroidism Personal/Social history : Past tobacco abuse, no EtOH intake, [facility] resident Admission Exam Per Admitting Provider GENERAL: Obtunded, no respiratory distress SKIN: Normal color, warm HEENT: Alopecia, Hunter palpebral conjunctivae, no ptosis, dry buccal mucosa, nasal cannula in place NECK : Supple, no tenderness CHEST : Decreased breath sounds, scattered crackles, no tenderness HEART : Tachycardic, no obvious murmurs ABDOMEN: Some distention, nontender EXTREMITIES : No LE swelling/tenderness, no other conspicuous deformities noted NEUROLOGIC : Obtunded, no facial asymmetry, gait and stance not assessed Principal Diagnosis Severe sepsis Metabolic encephalopathy Bilateral pneumonia Hypernatremia Hypokalemia Discharge Exam General- chronically ill appearing, appears weak, not in distress Eyes- anicteric Neck- no JVD Lungs- no rhonchi, no wheezing, good air entry bilaterally, no crackles Heart- normal rate, regular rhythm; no murmurs Abdomen- normal bowel sounds, nondistended, soft, nontender Extremities- no pretibial edema Neuro- alert, answers questions but slow, oreinted to self, eating by herself at bedside. Skin- warm & dry Discharge Data Allergies Allergy/AdvReac Type Severity Reaction Status Date / Time Penicillins Allergy Intermediate HIVES Verified 07/14/22 20:09 cimetidine Allergy Unknown ON WINDY Verified 07/14/22 20:09 [facility] erythromycin base Allergy Unknown ON Verified 07/14/22 20:09 [facility] phenytoin AdvReac Intermediate HIVES Verified 07/14/22 20:09 Consultations 07/14/22 22:55 ED Decision to Admit Stat 07/22/22 17:48 Consult Neurology Routine Ordered Studies 07/14/22 19:56 CT head/brain wo con Stat 07/14/22 22:09 CT Abd and Pelvis [CT abd pelvis IV con only] Stat 07/21/22 09:17 CT head/brain wo con Urgent 07/23/22 13:35 MRI Brain [MR brain wo/w con] Routine Hospital Course (1) Severe sepsis: 61-year-old female with CVA, hypertension, hyperlipidemia, seizure disorder, astrocytoma status post surgery/chemoradiation, traumatic brain as per records, GERD, hypothyroidism, chronic urticaria as per records, past tobacco abuse presenting with altered mental status. She was managed for the following: Severe sepsis, metabolic encephalopathy likely secondary to bilateral pneumonia SIRS plus lactic acidosis plus encephalopathy plus hypoxemia + metapneumovirus (on biofire) nausea/vomiting on admission; CTAP w/ bibasal airspace opacities. poss. Aspiration pneumonia/HCAP, positive MRSA nasal swab initially thought poss. Complicated UTI - u cultx - negative Colitis on CT rule out C. difficile given recent Keflex Rx for toe infection--->>c. diff negative, stool pcr negative (obtained 07/20/22) Blood cultures: negative Continue with - vancomycin plus meropenem --> switched meropenem to cefepime - as pt's mental status changed - switched cefepime back to meropenem (07/21/22) -- s/p antibiotic course. Nebs 4 times daily Metabolic encephalopathy Patient was unresponsive on admission, then awake and alert, answering questions appropriately -> now pt awake and following few simple commands but not talking much -? 2/2 medication? - cefepime switched to meropenem. CT head obtained and negative. Daughter /family updated per prior attending. Afebrile now, blood pressure getting better. neuro evaled, recs is MRI brain w/wo con - no acute infarction noted. Back to baseline mentation, hemodynamically stable. Alert and awake. Hypernatremia: at presentation. IV half NSS initially started on admission given hypernatremia Sodium now improved, PO intake improved. Other chronic meds conditions: resume home meds as able. hx CVA hypertension, stable hyperlipidemia, on statin Rx seizure disorder on Tegretol hx astrocytoma status post surgery/chemoradiation traumatic brain as per records GERD on PPI hypothyroidism, TSH from 2 months ago noted to be low TSH 0.07, free T41.9-subclinical hyperthyroidism Follow-up as an outpatient past tobacco abuse DVT prophylaxis. SCDs Re: hx Brain tumor DNR/DNI per admitting provider's discussion w/family Pt being discharged to snf w/ following instruction at the point of discharge: Follow-up with your primary care physician within a week time and likely you will need labs CBC/CMP/magnesium/phosphorus. Follow up with your neurology as prior. Thyroid function test in 6 weeks upon discharge, coordinate with your PCP office. Take your medications as prescribed. Home Health Attestation I certify that this patient is under my care and that I, or a physicians activities assistant working with me, had a face to-face encounter that meets the home health mnhy-[id number] encounter requirements with this patient. The encounter with the patient was in whole, or in part, for the following medical condition, which is the primary reason for home health care (list medical condition): I certify that, based on my findings, the following services are medically necessary home health services: My clinical findings support the need for the above services because: Further, I certify that my clinical findings support that this patient is homebound (i.e. absences from home require considerable and taxing effort and are for medical reasons or hinduism services or infrequently or of short duration when for other reasons) because: Certification for Home Health Services: Based on the above findings, I certify that this patient is confined to the home and needs intermittent halfway care, physical therapy and/or speech therapy or continues to need occupational therapy. The patient is under my care, and I have initiated the establishment of the plan of care. This patient will be followed by a physician who will periodically review the plan of care. Total Time Total Time Spent Total Time Spent (In Minutes): 45 Discharge Plan Discharge Items Patient Disposition: Transfer [facility] Reason For Visit: REPS FAILURE Discharge Diagnosis: Severe sepsis Metabolic encephalopathy Bilateral pneumonia Hypernatremia Hypokalemia Activity: Resume your previous activity Non-emergency contact: Primary Care Provider Call non-emergency contact if: you have any medication questions Follow-up/Referrals: Nina Haile MD [Primary Care Provider] - Diet: Regular Liquid Consistency: [place] thick Diet Comment: minced and moist Addtl Attending Provider Instructions: Follow-up with your primary care physician within a week time and likely you will need labs CBC/CMP/magnesium/phosphorus. Follow up with your neurology as prior. Thyroid function test in 6 weeks upon discharge, coordinate with your PCP office. Take your medications as prescribed. Pending Studies at Discharge: Yes Stand-Alone Forms: [facility] Skilled Items Patient informed of condition?: Yes DNR: Yes Discharge Level of Care: Skilled Communicable Disease: No Discharge Prognosis: Stable Lines: None Urinary Catheter: No Medications and DC Order Prescriptions: New magnesium oxide 400 mg (241.3 mg magnesium) Tablet 400 mg PO QAM Qty: 30 0RF Continued acetaminophen [Tylenol] 325 mg Capsule 650 mg PO Q4 MDD 3 GRAMS APAP/24 HOURS PRN (Reason: Fever Or Pain) multivitamin Tablet 1 tab PO QAM cyanocobalamin (vitamin B-12) [Vitamin B-12] 500 mcg Tablet 500 mcg PO QAM levothyroxine [Synthroid] 50 mcg tablet 50 mcg PO DAILYBB gabapentin [Neurontin] 300 mg capsule 300 mg PO HS cholecalciferol (vitamin D3) [Vitamin D3] 1,000 unit Capsule 1,000 unit PO QAM Linzess 72 mcg capsule 72 mcg PO HS acetaminophen 500 mg Tablet 500 mg PO TID Rx Instructions: 1 T by mouth morning, afternoon, & evening Cetaphil Cream 1 applic topical AMPM Rx Instructions: apply topically from head to toe every day in the morning and evening Antibiotic (fwxmh-coply-bvjuf) 3.5mg-400 unit- 5,000 unit/gram Ointment 1 applic TOPICAL DAILY Rx Instructions: STARTED 07/10/22 FOR 14 DAYS. APPLY TO RIGHT GREAT TOE, COVER WITH BANDAID miconazole nitrate 2 % Powder 1 applic TOPICAL BID Rx Instructions: STARTED 07/06/22 FOR 14 DAYS. APPLY TO LEFT AXILLA AND RIGHT ABD FOLD. mirtazapine 15 mg tablet 15 mg PO HS ketoconazole [Nizoral] 2 % Cream 1 applic TOPICAL BID Rx Instructions: STARTED 07/07/22 FOR 14 DAYS. APPLY TO WEBSPACES BETWEEN TOES LEFT FOOT. Magic Mix 1 applic topical TID Rx Instructions: CLEANSE RIGHT COCCYX AREA WITH NSS OR WOUND CLEANSER, APPLY MAGIC MIX TO THE WOUND BASES Q SHIFT AND PRN.---SILVADENE, NYSTATIN, ZINC 40%, HYDROCORTISONE 1%. Theracalazinc 1 applic topical TID carbamazepine 200 mg capsule, ER multiphase 12 hr 200 mg PO BID amlodipine [Norvasc] 5 mg tablet 2.5 mg PO QAM aspirin 81 mg tablet,delayed release (DR/EC) 81 mg PO QAM omeprazole 20 mg capsule,delayed release(DR/EC) 20 mg PO DAILYBB cetirizine 10 mg Tablet 10 mg PO BID rosuvastatin 40 mg tablet 40 mg PO HS omega 1-zzf-nfi-fish oil [Fish Oil] 1,200 (144-216) mg Capsule 1 cap PO DAILY modafinil 200 mg Tablet 200 mg PO QAM sennosides-docusate sodium [Senna Plus] 8.6-50 mg Tablet 2 tab-cap PO BID potassium chloride 20 mEq Tablet Extended Release 20 meq PO BID Discontinued cephalexin 500 mg Capsule 500 mg PO TID Rx Instructions: STARTED 07/07/22 FOR 10 DAYS. Discharge Orders: Discharge Order (Routine); Ordered 07/25/22 Ordered By: Alex Soler Admission Data Admit Date/Time: 07/14/22 22:13 Attending Provider: Alex Soler Admit Provider: Jeramie Marques Primary Care Provider: Nina Haile Other Providers: Jeramie Marques ; Javon Solis ; [facility] ; Robin Akins
== END 2022-07-25 15:25 | DRG 871 ==
LOC: ED 19:12 → 2W 22:13 → SUATTDRO 22:13 → 2W 23:35

== ENCOUNTER 2024-01-05 10:11 | Inpatient (IN) ==
--- NOTE | 2024-01-05 10:40 | XRay Report ---
XR chest 1V portable CLINICAL HISTORY: Sepsis COMPARISON STUDY: Chest radiograph July 24, 2022. FINDINGS: Patient is mildly rotated. Lung volumes are normal. Lungs are clear. There is no pneumothor ax or pleural effusion. The cardiomediastinal silhouette is stable. There is no evidence for pulmonar y edema. IMPRESSION: No acute cardiopulmonary findings. No significant change in appearance of the chest. ACT 112: Negative or not required by law. Electronically signed by: Omkar Ricci M.D. 01/05/2024 10:38 AM
[2024-01-05 10:48] LABS: Base Excess VBG 4.2 mEq/L; HCO3 VBG 29 mmol/L; Oxygen Saturation VBG 95.9 %; PCO2 VBG 44 mmHg (38-50); PO2 VBG 71 mmHg; pH VBG 7.43 (7.36-7.41)
--- NOTE | 2024-01-05 10:51 | Emergency Department Note ---
Impression & Plan AMS (altered mental status), Acute UTI (urinary tract infection), Acute hypernatremia ED Provider Note HISTORY OF PRESENT ILLNESS: Patient is a 63-year-old female presenting with confusion. Patient presents from [facility]. She reportedly had acute onset of confusion some point this morning. Unknown last known well. 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 Per report, the patient has had fevers for the last few days. She is normally alert and oriented and able to hold a conversation. On arrival to the ER, the patient is unable to provide any meaningful history. She does state "no" when asked if she is having any pain. ROS: as above PHYSICAL EXAM: Constitutional: Patient appears in no acute distress. HENT: Head: Normocephalic and atraumatic. Previous craniotomy stick are on the right crown of the head that is well-healed. Eyes: EOMI, PERRL Mouth/Throat: Mucous membranes moist. Neck: Trachea midline. Neck supple. Cardiovascular: RRR, No murmurs, rubs or gallops. Intact distal pulses. Pulmonary/Chest: No respiratory distress. Breath sounds clear and equal bilaterally. No wheezes or rales. Abdominal: Abdomen soft, no tenderness, rebound or guarding. Musculoskeletal: No edema, tenderness or deformity noted. Skin: Warm and dry. No rash, erythema, pallor or cyanosis Neurological: Alert. CN II-XII grossly intact MDM: - Vitals signs showed elevated temperature. - History obtained via EMS, given patient's confusion. History as above. - Chronic conditions affecting care: CVA; HTN; HLD; seizure disorder; astrocytoma (S/p surgery and chemo); GERD; hypothyroidism - Differential diagnoses include, but are not limited to: CVA; intracranial hemorrhage; ACS; pneumonia; UTI; viral syndrome; dysrhythmia; electrolyte abnormality - Order placed for continuous cardiac monitoring. At this time, monitor showed rate of 70 bpm with normal sinus rhythm, per my interpretation. - External medical records reviewed. Discharge summary dated 07/25/2022 was reviewed. Patient was admitted that time for metabolic encephalopathy and bilateral pneumonia causing severe sepsis. Urine culture from 06/05/2023 showed that the patient grew E. coli that was pansensitive. - EKG interpreted by myself showed normal sinus with her. Rate 80 bpm. QT 390. No acute ischemic changes. - Laboratory workup interpreted by myself showed normal WBC; hypernatremia (Na 148); normal lactate; normal troponin - CXR negative for pneumonia, per my interpretation - Viral respiratory panel negative - UA showed evidence of infection. Given 2 g IV Rocephin. - CT head wo contrast negative for acute pathology. - Given 1g IV tylenol for elevated temperature. - Patient is currently on 3L NC, but unsure if she wears oxygen at baseline. Blood cultures were obtained. Given that the patient is still confused unable to answer questions and give a full history, will admit for her acute confusion and altered mental status in the setting of a UTI. - Discussion was had with correctional counselor/case manager about patient's case and need for admission - Hospitalist consulted for admission - [facility] ASSESSMENT AND PLAN: Diagnosis: altered mental status; acute hypernatremia; acute UTI Plan: admit Past Med/Surg History Problem List (Updated 01/05/24 @ 13:35 by Wendy Finley MD) Acute hypernatremia (Acute) Acute UTI (urinary tract infection) (Acute) AMS (altered mental status) (Acute) Acute encephalopathy Severe sepsis Hypernatremia (Acute) UTI (urinary tract infection) (Acute) History of seizures (Acute) Lethargy (Acute) Skin abnormality (Acute) Altered mental status (Acute) Fever (Acute) Skin abnormality Left hemiparesis History of astrocytoma (Acute) s/p craniotomy/XRT/chemo Essential hypertension Lethargy UTI (urinary tract infection) Chronic hypernatremia DVT prophylaxis TIA (transient ischemic attack) Recurrent urticaria Dysphagia SDH (subdural hematoma) CVA (cerebral vascular accident) (Acute) Syncope (Acute) Brain TIA (Acute) Syncope DVT prophylaxis Hyperlipidemia GERD (gastroesophageal reflux disease) Hypothyroidism History of seizures Irritable bowel syndrome Hypokalemia Stroke-like symptoms Medical History Fibromyalgia Benign paroxysmal positional vertigo, bilateral History of seizure disorder History of peptic ulcer disease Chronic urticaria Irritable bowel syndrome Anxiety Depression Osteoarthritis Hypothyroidism GERD (gastroesophageal reflux disease) Hyperlipidemia Surgical History History of tubal ligation History of D&C History of carpal tunnel surgery of right wrist History of craniotomy Family History Sister Family history of reaction to anesthesia Social History Smoking Status: Never smoker Tobacco Type: Cigarettes Do You Dip or Chew Tobacco: No; Hx Alcohol Use: No Hx Substance Use: No Preferred Language: Ukrainian Communication Ability: Impaired Veterinary Surgery Technician Required: No Beliefs That Will Affect Care: None marital status: Current Living Situation: Intermediate Current Living Situation Comment: [facility] current occupational status: unemployed and disabled 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 Feels Safe at Home: Yes Assistive Devices: Wheelchair Allergies Allergies Allergy/AdvReac Type Severity Reaction Status Date / Time Penicillins Allergy Intermediate HIVES Verified 07/14/22 20:09 cimetidine Allergy Unknown ON [facility] Verified 07/14/22 20:09 [facility] erythromycin base Allergy Unknown ON [facility] Verified 07/14/22 20:09 [facility] phenytoin AdvReac Intermediate HIVES Verified 07/14/22 20:09 Home Meds Home Medications Medication Instructions Recorded Confirmed acetaminophen 325 mg capsule 650 mg PO Q4 PRN Fever Or Pain 06/06/18 07/14/22 (Tylenol) cholecalciferol (vitamin D3) 25 1,000 unit PO QAM 06/06/18 07/14/22 mcg (1,000 unit) capsule (Vitamin D3) cyanocobalamin (vitamin B-12) 500 500 mcg PO QAM 06/06/18 07/14/22 mcg tablet (Vitamin B-12) gabapentin 300 mg capsule 300 mg PO HS 06/06/18 07/14/22 (Neurontin) levothyroxine 50 mcg tablet 50 mcg PO DAILYBB 06/06/18 07/14/22 (Synthroid) linaclotide 72 mcg capsule 72 mcg PO HS 06/06/18 07/14/22 (Linzess) multivitamin 1 tab PO QAM 06/06/18 07/14/22 acetaminophen 500 mg tablet 500 mg PO TID 12/20/18 07/14/22 cetyl and stearate 1 applic topical AMPM 12/20/18 07/14/22 alcohol-propylen glycol-sls topical cream (Cetaphil topical cream) amlodipine 5 mg tablet (Norvasc) 2.5 mg PO QAM 12/19/20 07/14/22 aspirin 81 mg tablet,delayed 81 mg PO QAM 12/19/20 07/14/22 release cetirizine 10 mg tablet 10 mg PO BID 12/19/20 07/14/22 modafinil 200 mg tablet 200 mg PO QAM 12/19/20 07/14/22 omega 7-plj-zot-fish oil 1,200 mg 1 cap PO DAILY 12/19/20 07/14/22 (144 mg-216 mg) capsule (Fish Oil) omeprazole 20 mg capsule,delayed 20 mg PO DAILYBB 12/19/20 07/14/22 release potassium chloride 20 mEq 20 meq PO BID 12/19/20 07/14/22 tablet,extended release rosuvastatin 40 mg tablet 40 mg PO HS 12/19/20 07/14/22 sennosides 8.6 mg-docusate sodium 2 tab-cap PO BID 12/19/20 07/14/22 50 mg tablet (Senna Plus) miconazole nitrate 2 % topical 1 applic topical BID 06/04/22 07/14/22 powder mirtazapine 15 mg tablet 15 mg PO HS 06/04/22 07/14/22 neomycin-bacitracn Zn-polymyx 3.5 1 applic topical DAILY 06/04/22 07/14/22 mg-400 unit-5,000 unit/gram top oint (Antibiotic([id number])) Magic Mix 1 applic topical TID 07/14/22 07/14/22 Theracalazinc 1 applic topical TID 07/14/22 07/14/22 carbamazepine 200 mg 200 mg PO BID 07/14/22 07/14/22 capsule,extended release [id number] ketoconazole 2 % topical cream 1 applic topical BID 07/14/22 07/14/22 Previous Rx's Medication Instructions Recorded magnesium oxide 400 mg (241.3 mg 400 mg PO QAM #30 tabs 07/25/22 magnesium) tablet Results & Data (ED) Vital Signs Vital Signs - 24 hr 01/05/24 10:20 01/05/24 10:20 01/05/24 10:20 Temperature Temperature Source Pulse Rate 79 Pulse Rate [Apical] 79 Pulse Rate from SpO2 Sensor Pulse Rhythm Regular Pulse Rhythm [Apical] Regular Pulse Strength [Apical] Normal Respiratory Rate 20 20 Respiratory Effort / Characteristics Non-Labored Respiratory Depth Normal Respiratory Pattern Regular Blood Pressure Blood Pressure [Left Arm] 128/81 Blood Pressure Mean Blood Pressure Mean [Left Arm] 96 Pulse Oximetry 95 95 Oxygen Delivery Method Nasal Cannula Nasal Cannula Nasal Cannula Oxygen Flow Rate 3 3 3 Sepsis Recent Fever Within 48 Hours Sepsis New/Unexplained Change in Mental Status Sepsis Action Taken by Nursing 01/05/24 10:21 01/05/24 10:40 01/05/24 10:45 Temperature 37.9 C H Temperature Source Oral Pulse Rate 81 79 78 Pulse Rate [Apical] Pulse Rate from SpO2 Sensor 78 Pulse Rhythm Pulse Rhythm [Apical] Pulse Strength [Apical] Respiratory Rate 20 19 Respiratory Effort / Characteristics Non-Labored Spontaneous Respiratory Depth Normal Respiratory Pattern Blood Pressure 128/81 Blood Pressure [Left Arm] Blood Pressure Mean 96 Blood Pressure Mean [Left Arm] Pulse Oximetry 98 94 Oxygen Delivery Method Room Air Oxygen Flow Rate Sepsis Recent Fever Within 48 Hours No Sepsis New/Unexplained Change in Mental Status No Sepsis Action Taken by Nursing No Action Required 01/05/24 11:21 01/05/24 11:21 01/05/24 11:23 Temperature 37.7 C H Temperature Source Oral Pulse Rate 87 Pulse Rate [Apical] 73 Pulse Rate from SpO2 Sensor Pulse Rhythm Pulse Rhythm [Apical] Pulse Strength [Apical] Respiratory Rate 24 22 Respiratory Effort / Characteristics Non-Labored Respiratory Depth Normal Respiratory Pattern Regular Blood Pressure 119/77 Blood Pressure [Left Arm] 119/77 Blood Pressure Mean 91 Blood Pressure Mean [Left Arm] 91 Pulse Oximetry 95 Oxygen Delivery Method Nasal Cannula Oxygen Flow Rate 3 Sepsis Recent Fever Within 48 Hours Sepsis New/Unexplained Change in Mental Status Sepsis Action Taken by Nursing 01/05/24 11:30 01/05/24 11:45 01/05/24 11:51 Temperature Temperature Source Pulse Rate 83 75 73 Pulse Rate [Apical] Pulse Rate from SpO2 Sensor 79 75 73 Pulse Rhythm Pulse Rhythm [Apical] Pulse Strength [Apical] Respiratory Rate 19 Respiratory Effort / Characteristics Respiratory Depth Respiratory Pattern Blood Pressure Blood Pressure [Left Arm] Blood Pressure Mean Blood Pressure Mean [Left Arm] Pulse Oximetry 95 94 95 Oxygen Delivery Method Oxygen Flow Rate Sepsis Recent Fever Within 48 Hours Sepsis New/Unexplained Change in Mental Status Sepsis Action Taken by Nursing 01/05/24 12:03 01/05/24 12:12 01/05/24 12:45 Temperature Temperature Source Pulse Rate 72 71 70 Pulse Rate [Apical] Pulse Rate from SpO2 Sensor 72 71 Pulse Rhythm Pulse Rhythm [Apical] Pulse Strength [Apical] Respiratory Rate 23 22 21 Respiratory Effort / Characteristics Respiratory Depth Respiratory Pattern Blood Pressure Blood Pressure [Left Arm] Blood Pressure Mean Blood Pressure Mean [Left Arm] Pulse Oximetry 95 96 Oxygen Delivery Method Oxygen Flow Rate Sepsis Recent Fever Within 48 Hours Sepsis New/Unexplained Change in Mental Status Sepsis Action Taken by Nursing Laboratory Data 01/05/24 10:30 01/05/24 10:30 Lab Results 01/05/24 01/05/24 01/05/24 Range/Units 10:30 10:35 10:38 WBC 6.85 (4.8-10.8) K/ul RBC 4.73 (4.20-5.40) M/uL Hgb 14.9 (12.0-16.0) g/dl Hct 45.4 (37.0-47.0) % MCV 96.0 (80.0-100.0) fL MCH 31.5 (25.0-34.0) pg MCHC 32.8 (32.0-36.0) g/dL RDW Std Deviation 45.6 (36.4-46.3) fL RDW Coeff of Claudio 12.7 (11.5-14.5) % Plt Count 177 (130-400) K/uL MPV 10.1 (9.4-12.4) fL Immature Gran % (Auto) 0.4 % Neut % (Auto) 59.6 % Lymph % (Auto) 33.9 % [place] % (Auto) 6.1 % Eos % (Auto) 0.0 % Baso % (Auto) 0.0 % Neut # (Auto) 4.08 (1.40-6.50) K/uL Lymph # (Auto) 2.32 (1.20-3.40) K/uL [place] # (Auto) 0.42 (0.11-0.59) K/uL Eos # (Auto) 0.00 (0.00-0.50) K/uL Baso # (Auto) 0.00 (0.00-0.20) K/uL Immature Gran # (Auto) 0.03 (0.01-0.20) K/uL PT 12.4 H (9.0-12.0) Seconds INR 1.2 H (0.9-1.1) APTT 26 (21-31) Seconds PTT Ratio 1.0 VBG pH 7.43 H (7.36-7.41) VBG pCO2 44 (38-50) mmHg VBG pO2 71 mmHg VBG HCO3 29 mmol/L VBG O2 Saturation 95.9 % VBG Base Excess 4.2 mEq/L Sodium 148 H (136-145) mmol/L Potassium 3.8 (3.5-5.1) mmol/L Chloride 113 H (98-107) mmol/L Carbon Dioxide 27 (21-32) mmol/L Anion Gap 8 (3-11) BUN 20 (6-23) mg/dl Creatinine 0.81 (0.6-1.2) mg/dl Est Cr Clr Drug Dosing 72.6 ml/min eGFR 82.02 BUN/Creatinine Ratio 24.7 H (10-20) Glucose 95 (70-99(Fasting)) mg/dl Lactate 1.2 (0.4-2.0) mmol/L Calcium 9.0 (8.6-10.3) mg/dl Magnesium 2.2 (1.7-2.4) mg/dl Total Bilirubin 0.6 (0.2-1.0) mg/dl AST 36 (13-39) U/L ALT 16 (7-52) U/L Alkaline Phosphatase 127 H (34-104) U/L Troponin I High Sens 4.9 (0-14) pg/ml Total Protein 6.9 (6.0-8.3) gm/dl Albumin 3.9 (3.4-5.0) gm/dl Globulin 3.0 (2.5-4.0) gm/dl Albumin/Globulin Ratio 1.3 (0.9-2) Urine Color Urine Appearance (Clear) Urine pH (4.5-7.5) Ur Specific [place] (1.000-1.030) Urine Protein (Negative) Urine Glucose (UA) (Negative) Urine Ketones (Negative) Urine Blood (Negative) Urine Nitrite (Negative) Urine Bilirubin (Negative) Urine Urobilinogen (Negative) Ur Leukocyte Esterase (Negative) Urine WBC (Auto) (0-5) /hpf Urine RBC (Auto) (0-2) /hpf U Hyaline Cast (Auto) (0-2) /lpf U Epithel Cells (Auto) (0-2) /hpf Urine Bacteria (Auto) (None Seen) Granular Casts (None Prsent) /lpf Adenovirus (PCR) (NotDetected) B. pertussis DNA (PCR) (NotDetected) B.parapertussis DNA PCR (NotDetected) C. pneumoniae DNA (PCR) (NotDetected) Coronavirus OC43 (PCR) (NotDetected) Coronavirus HKU1 (PCR) (NotDetected) Coronavirus 229E (PCR) (NotDetected) SARS-CoV-2 (PCR) (NotDetected) Coronavirus NL63 (PCR) (NotDetected) Human Metapneumovir PCR (NotDetected) Influenza Type A (PCR) (NotDetected) Influenza Type B (PCR) (NotDetected) M. pneumoniae (PCR) (NotDetected) Parainfluenza 1 (PCR) (NotDetected) Parainfluenza 2 (PCR) (NotDetected) Parainfluenza 3 (PCR) (NotDetected) Parainfluenza 4 (PCR) (NotDetected) RSV (PCR) (NotDetected) Entero/Rhino (PCR) (NotDetected) 01/05/24 01/05/24 Range/Units 10:51 11:23 WBC (4.8-10.8) K/ul RBC (4.20-5.40) M/uL Hgb (12.0-16.0) g/dl Hct (37.0-47.0) % MCV (80.0-100.0) fL MCH (25.0-34.0) pg MCHC (32.0-36.0) g/dL RDW Std Deviation (36.4-46.3) fL RDW Coeff of Claudio (11.5-14.5) % Plt Count (130-400) K/uL MPV (9.4-12.4) fL Immature Gran % (Auto) % Neut % (Auto) % Lymph % (Auto) % [place] % (Auto) % Eos % (Auto) % Baso % (Auto) % Neut # (Auto) (1.40-6.50) K/uL Lymph # (Auto) (1.20-3.40) K/uL [place] # (Auto) (0.11-0.59) K/uL Eos # (Auto) (0.00-0.50) K/uL Baso # (Auto) (0.00-0.20) K/uL Immature Gran # (Auto) (0.01-0.20) K/uL PT (9.0-12.0) Seconds INR (0.9-1.1) APTT (21-31) Seconds PTT Ratio VBG pH (7.36-7.41) VBG pCO2 (38-50) mmHg VBG pO2 mmHg VBG HCO3 mmol/L VBG O2 Saturation % VBG Base Excess mEq/L Sodium (136-145) mmol/L Potassium (3.5-5.1) mmol/L Chloride (98-107) mmol/L Carbon Dioxide (21-32) mmol/L Anion Gap (3-11) BUN (6-23) mg/dl Creatinine (0.6-1.2) mg/dl Est Cr Clr Drug Dosing ml/min eGFR BUN/Creatinine Ratio (10-20) Glucose (70-99(Fasting)) mg/dl Lactate (0.4-2.0) mmol/L Calcium (8.6-10.3) mg/dl Magnesium (1.7-2.4) mg/dl Total Bilirubin (0.2-1.0) mg/dl AST (13-39) U/L ALT (7-52) U/L Alkaline Phosphatase (34-104) U/L Troponin I High Sens (0-14) pg/ml Total Protein (6.0-8.3) gm/dl Albumin (3.4-5.0) gm/dl Globulin (2.5-4.0) gm/dl Albumin/Globulin Ratio (0.9-2) Urine Color Dark Yellow Urine Appearance Cloudy A (Clear) Urine pH 5.0 (4.5-7.5) Ur Specific [place] 1.045 H (1.000-1.030) Urine Protein 1+ H (Negative) Urine Glucose (UA) Negative (Negative) Urine Ketones 1+ H (Negative) Urine Blood 1+ H (Negative) Urine Nitrite Negative (Negative) Urine Bilirubin 1+ H (Negative) Urine Urobilinogen Negative (Negative) Ur Leukocyte Esterase Trace H (Negative) Urine WBC (Auto) 21-50 H (0-5) /hpf Urine RBC (Auto) 11-20 H (0-2) /hpf U Hyaline Cast (Auto) >20 H (0-2) /lpf U Epithel Cells (Auto) 6-10 H (0-2) /hpf Urine Bacteria (Auto) 2+ H (None Seen) Granular Casts Present A (None Prsent) /lpf Adenovirus (PCR) Not Detected (NotDetected) B. pertussis DNA (PCR) Not Detected (NotDetected) B.parapertussis DNA PCR Not Detected (NotDetected) C. pneumoniae DNA (PCR) Not Detected (NotDetected) Coronavirus OC43 (PCR) Not Detected (NotDetected) Coronavirus HKU1 (PCR) Not Detected (NotDetected) Coronavirus 229E (PCR) Not Detected (NotDetected) SARS-CoV-2 (PCR) Not Detected (NotDetected) Coronavirus NL63 (PCR) Not Detected (NotDetected) Human Metapneumovir PCR Not Detected (NotDetected) Influenza Type A (PCR) Not Detected (NotDetected) Influenza Type B (PCR) Not Detected (NotDetected) M. pneumoniae (PCR) Not Detected (NotDetected) Parainfluenza 1 (PCR) Not Detected (NotDetected) Parainfluenza 2 (PCR) Not Detected (NotDetected) Parainfluenza 3 (PCR) Not Detected (NotDetected) Parainfluenza 4 (PCR) Not Detected (NotDetected) RSV (PCR) Not Detected (NotDetected) Entero/Rhino (PCR) Not Detected (NotDetected) Administered Medications Discontinued Medications Acetaminophen (Ofirmev) 1,000 mg in 100 mls @ 400 mls/hr IV NOW STA Stop: 01/05/24 11:18 Last Infusion: 01/05/24 11:43 Dose: Infused Documented By: Admin: 01/05/24 11:24 Dose: 400 mls/hr Documented By: ELEAZAR Ceftriaxone Sodium (Rocephin) 2,000 mg in 50 mls @ 100 mls/hr IV NOW STA Stop: 01/05/24 12:54 Last Admin: 01/05/24 12:52 Dose: 100 mls/hr Documented By: N Imaging Data Radiologist's Impression: Chest X-Ray 01/05/24 10:20 XR chest 1V portable CLINICAL HISTORY: Sepsis COMPARISON STUDY: Chest radiograph July 24, 2022. FINDINGS: Patient is mildly rotated. Lung volumes are normal. Lungs are clear. There is no pneumothorax or pleural effusion. The cardiomediastinal silhouette is stable. There is no evidence for pulmonary edema. IMPRESSION: No acute cardiopulmonary findings. No significant change in appearance of the chest. ACT 112: Negative or not required by law. Electronically signed by: Omkar Ricci M.D. 01/05/2024 10:[address] 01/05/24 10:20 CT OF THE HEAD WITHOUT CONTRAST CLINICAL HISTORY: Altered mental status. COMPARISON STUDY: Head CT July 21, 2022 and MRI of the brain July 23, 2022 CT DOSE: 625.8 mGy.cm TECHNIQUE: Helical axial images of the head were obtained without IV contrast. Automated exposure control was utilized for the study. A dose lowering technique was utilized adhering to the principles of ALARA. FINDINGS: The right frontal CSF attenuation focus is unchanged. The ventricular system is stable. Basal cisterns are patent. There are no extra axial collections. Stable postoperative findings following right sided craniotomy are noted. No acute intracranial hemorrhage is present. There is no evidence for herniation. There are no findings to suggest acute dural sinus thrombosis or acute territorial infarct. Calcifications within the right basal ganglia are again noted. There has been no change in appearance of the brain. There are no calvarial fractures matter hypodensities are unchanged and favor small vessel disease IMPRESSION: No acute intracranial findings. No change in appearance of the brain. Stable postoperative findings. ACT 112: Negative or not required by law. Electronically signed by: Omkar Ricci M.D. 01/05/2024 11:15 AM Discharge Plan Visit Data Chief Complaint: Lethargic Stated Complaint: LEHTARGIC, CONFUSION, FEVER ED Provider: Wendy Finley Discharge Problem: AMS (altered mental status), Acute UTI (urinary tract infection), Acute hypernatremia Forms Stand Alone Forms: [employer] Prescriptions Prescriptions: No Action acetaminophen [Tylenol] 325 mg Capsule 650 mg PO Q4 MDD 3 GRAMS APAP/24 HOURS PRN (Reason: Fever Or Pain) multivitamin Tablet 1 tab PO QAM cyanocobalamin (vitamin B-12) [Vitamin B-12] 500 mcg Tablet 500 mcg PO QAM levothyroxine [Synthroid] 50 mcg tablet 50 mcg PO DAILYBB gabapentin [Neurontin] 300 mg capsule 300 mg PO HS cholecalciferol (vitamin D3) [Vitamin D3] 1,000 unit Capsule 1,000 unit PO QAM Linzess 72 mcg capsule 72 mcg PO HS acetaminophen 500 mg Tablet 500 mg PO TID Rx Instructions: 1 T by mouth morning, afternoon, & evening Cetaphil Cream 1 applic topical AMPM Rx Instructions: apply topically from head to toe every day in the morning and evening Antibiotic ([id number]) 3.5mg-400 unit- 5,000 unit/gram Ointment 1 applic TOPICAL DAILY Rx Instructions: STARTED 07/10/22 FOR 14 DAYS. APPLY TO RIGHT GREAT TOE, COVER WITH BANDAID miconazole nitrate 2 % Powder 1 applic TOPICAL BID Rx Instructions: STARTED 07/06/22 FOR 14 DAYS. APPLY TO LEFT AXILLA AND RIGHT ABD FOLD. mirtazapine 15 mg tablet 15 mg PO HS ketoconazole 2 % Cream 1 applic TOPICAL BID Rx Instructions: STARTED 07/07/22 FOR 14 DAYS. APPLY TO WEBSPACES BETWEEN TOES LEFT FOOT. Magic Mix 1 applic topical TID Rx Instructions: CLEANSE RIGHT COCCYX AREA WITH NSS OR WOUND CLEANSER, APPLY MAGIC MIX TO THE WOUND BASES Q SHIFT AND PRN.---SILVADENE, NYSTATIN, ZINC 40%, HYDROCORTISONE 1%. Theracalazinc 1 applic topical TID carbamazepine 200 mg capsule, ER multiphase 12 hr 200 mg PO BID magnesium oxide 400 mg (241.3 mg magnesium) Tablet 400 mg PO QAM Qty: 30 0RF amlodipine [Norvasc] 5 mg tablet 2.5 mg PO QAM aspirin 81 mg tablet,delayed release (DR/EC) 81 mg PO QAM omeprazole 20 mg capsule,delayed release(DR/EC) 20 mg PO DAILYBB cetirizine 10 mg Tablet 10 mg PO BID rosuvastatin 40 mg tablet 40 mg PO HS omega 5-ioz-ppa-fish oil [Fish Oil] 1,200 (144-216) mg Capsule 1 cap PO DAILY modafinil 200 mg Tablet 200 mg PO QAM sennosides-docusate sodium [Senna Plus] 8.6-50 mg Tablet 2 tab-cap PO BID potassium chloride 20 mEq Tablet Extended Release 20 meq PO BID Referrals Referrals: Nina Haile MD [Primary Care Provider] -
[2024-01-05 11:08] LABS: Hematocrit (blood only) 45.4 % (37.0-47.0); Hemoglobin 14.9 g/dl (12.0-16.0); Immature Granulocytes # (auto) 0.03 K/uL (0.01-0.20); Immature Granulocytes % (auto) 0.4 %; Lymphocytes # (auto) 2.32 K/uL (1.20-3.40); Lymphocytes % (auto) 33.9 %; Mean Corpuscular Hemoglobin 31.5 pg (25.0-34.0); Mean Corpuscular Hgb Conc 32.8 g/dL (32.0-36.0); Mean Platelet Volume 10.1 fL (9.4-12.4); Monocytes # (auto) 0.42 K/uL (0.11-0.59); Monocytes % (auto) 6.1 %; Neutrophils # (auto) 4.08 K/uL (1.40-6.50); Neutrophils % (auto) 59.6 %; Platelet Count 177 K/uL (130-400); RDW Coefficient of Variation 12.7 % (11.5-14.5); RDW Standard Deviation 45.6 fL (36.4-46.3); Red Blood Count 4.73 M/uL (4.20-5.40); White Blood Count 6.85 K/ul (4.8-10.8)
[2024-01-05 11:11] LABS: Albumin Globulin Ratio 1.3 (0.9-2); Albumin Level 3.9 gm/dl (3.4-5.0); BUN Creatinine Ratio 24.7 (10-20); Bilirubin,Total 0.6 mg/dl (0.2-1.0); Creatinine Clr Calc Pharmacy 72.6 ml/min; Magnesium 2.2 mg/dl (1.7-2.4); Potassium 3.8 mmol/L (3.5-5.1); Total Protein 6.9 gm/dl (6.0-8.3)
[2024-01-05 11:17] LABS: Troponin I High Sensitivity 4.9 pg/ml (0-14)
--- NOTE | 2024-01-05 11:18 | CT Scan Report ---
CT OF THE HEAD WITHOUT CONTRAST CLINICAL HISTORY: Altered mental status. COMPARISON STUDY: Head CT July 21, 2022 and MRI of the brain July 23, 2022 CT DOSE: 625.8 mGy.cm TECHNIQUE: Helical axial images of the head were obtained without IV contrast. Automated exposure con trol was utilized for the study. A dose lowering technique was utilized adhering to the principles o f ALARA. FINDINGS: The right frontal CSF attenuation focus is unchanged. The ventricular system is stable. Bas al cisterns are patent. There are no extra axial collections. Stable postoperative findings following right sided craniotomy are noted. No acute intracranial hemorrhage is present. There is no evidence for herniation. There are no findings to suggest acute dural sinus thrombosis or acute territorial in farct. Calcifications within the right basal ganglia are again noted. There has been no change in hector earance of the brain. There are no calvarial fractures matter hypodensities are unchanged and favor s mall vessel disease IMPRESSION: No acute intracranial findings. No change in appearance of the brain. Stable postoperati ve findings. ACT 112: Negative or not required by law. Electronically signed by: Omkar Ricci M.D. 01/05/2024 11:15 AM
[2024-01-05 11:23] LABS: INR 1.2 (0.9-1.1); Partial Thromboplastin Time 26 Seconds (21-31); Prothrombin Time 12.4 Seconds (9.0-12.0)
[2024-01-05] MEDS: ACETAMINOPHEN 1,000 MG/100 ML VIAL IV STA (11:24)
[2024-01-05 11:47] LABS: Appearance Urine Cloudy (Clear); Bacteria Urine Automated 2+ (None Seen); Bilirubin Urine 1+ (Negative); Blood Urine 1+ (Negative); Cast Urine Automated >20 /lpf (0-2); Color Urine Dark Yellow; Glucose Urine UA Negative (Negative); Granular Casts Urine Present /lpf (None Prsent); Ketones Urine 1+ (Negative); Leukocyte Esterase Urine Trace (Negative); Nitrite Urine Negative (Negative); Protein Urine 1+ (Negative); Specific Gravity Urine 1.045 (1.000-1.030); Urobilinogen Urine Negative (Negative); WBC Urine Automated 21-50 /hpf (0-5)
[2024-01-05 11:47] LABS: Adenovirus PCR Not Detected (NotDetected); Bordetella parapertussis PCR Not Detected (NotDetected); Bordetella pertussis PCR Not Detected (NotDetected); Chlamydia pneumoniae PCR Not Detected (NotDetected); Coronavirus 229E PCR Not Detected (NotDetected); Coronavirus CoV-2 (COVID19)PCR Not Detected (NotDetected); Coronavirus HKU1 PCR Not Detected (NotDetected); Coronavirus NL63 PCR Not Detected (NotDetected); Coronavirus OC43PCR Not Detected (NotDetected); Human Metapneumovirus PCR Not Detected (NotDetected); Influenza A PCR Not Detected (NotDetected); Influenza B PCR Not Detected (NotDetected); Mycoplasma pneumoniae PCR Not Detected (NotDetected); Parainfluenza Virus 1 PCR Not Detected (NotDetected); Parainfluenza Virus 2 PCR Not Detected (NotDetected); Parainfluenza Virus 3 PCR Not Detected (NotDetected); Parainfluenza Virus 4 PCR Not Detected (NotDetected); Respiratory Syncytial VirusPCR Not Detected (NotDetected); Rhinovirus/Enterovirus PCR Not Detected (NotDetected)
--- NOTE | 2024-01-05 12:44 | History & Physical Report ---
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 Per [facility] staff, patient was acting more lethargic and confused starting this morning. She was also reported to have a fever of 101F. She was also not as conversive. Staff attempted to obtain a UA via straight catheterization this morning however they were unable to obtain a specimen, which therefore prompted her transportation to the ED for further evaluation. Patient is typically conversive at baseline however she is quite forgetful typically. Her daughter, Bettie, reports that she has been acting more "spacey" since Thursday. She was very concerned that she was developing a UTI as she is very prone to them and this is typically how her symptomatology begins. Patient only wears supplemental oxygen as needed. Altered Mental Status (AMS), Acute UTI: AMS likely 2/2 acute UTI. Vitals stable, no evidence of sepsis at time of admission. No leukocytosis. Head CT negative. CXR negative, Biofire negative. UA infected. Procalcitonin, lactate both negative. S/p 2g IV Rocephin in the ED. She has previously grown E. coli sensitive to Rocephin. Continue IV Rocephin for now. Urine culture pending. Blood culture x 2 pending. Probiotic added. Chronic Hypernatremia: Sodium 148 on admission, baseline sodium level ~147-152 per chart review. Likely 2/2 poor po intake; start full liquid diet. Will start LR's @ 80cc/hr x 2 bags [total =2L IVF]. Continue to monitor her electrolytes closely and treat PRN. Advance ERIC. Other Chronic Medical Conditions: Dyslipidemia/prior CVA, hypothyroidism, HTN, esophageal reflux, seizure disorder, seasonal allergies, etc. --> Can continue/resume home medications as able. DVT Prophylaxis: SQ Lovenox Code Status: DNR/DNI - Per conversation with her daughter, Bettie, and [facility] documentation. PCP: Nina Haile MD Disposition: Admit to Med/Surg + Telemetry - Likely can be downgraded to Med/Surg within the next 24 hours if mental status improves. PT/OT evals pending. Patient's daughter, Bettie, would like daily updates regarding her mother's care. She can be reached at the following phone #: [phone]. She works at [employer]. Patient seen in collaboration with Dr. Owens. Please see addendum. I spent a total of 70 minutes coordinating, documenting, and providing care for this patient excluding time spent in the performance of separately billed services. This included personally reviewing all current laboratories and imaging studies, medical reconciliation, outpatient chart review and discussion with specialists. This chart was completed in part utilizing Speech Voice Recognition Software. Grammatical errors, random word insertions, pronoun errors, and incomplete sentences are an occasional consequence of this system due to software limitations, ambient noise, and hardware issues. Any formal questions or concerns about the content, text, or information contained within the body of this dictation should be directly addressed to the provider for clarification. 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 History obtained from phone conversation with [facility] staff + patient's daughter (Bettie) and associated chart review. Unable to obtain much history at all from the patient given her altered mental status. She did however sometimes answer yes/no to direct questions. Per [facility] staff, patient was acting more lethargic and confused starting this morning. She was also reported to have a fever of 101F. She was also not as conversive. Staff attempted to obtain a UA via straight catheterization this morning however they were unable to obtain a specimen, which therefore prompted her transportation to the ED for further evaluation. Patient is typically conversive at baseline however she is quite forgetful typically. Her daughter, Bettie, reports that she has been acting more "spacey" since Thursday. She was very concerned that she was developing a UTI as she is very prone to them and this is typically how her symptomatology begins. She only we ars oxygen as needed. Patient is DNR/DNI status per conversation with her daughter and [facility] documentation. Allergies Allergy/AdvReac Type Severity Reaction Status Date / Time Penicillins Allergy Intermediate HIVES Verified 07/14/22 20:09 cimetidine Allergy Unknown ON Verified 07/14/22 20:09 [facility] MED LIST erythromycin base Allergy Unknown ON Verified 07/14/22 20:09 [facility] LIST phenytoin AdvReac Intermediate HIVES Verified 07/14/22 20:09 Home Medications Medication Instructions Recorded Confirmed Type cholecalciferol (vitamin D3) 25 1,000 unit PO QAM 06/06/18 01/05/24 History mcg (1,000 unit) capsule (Vitamin D3) cyanocobalamin (vitamin B-12) 500 500 mcg PO QAM 06/06/18 01/05/24 History mcg tablet (Vitamin B-12) gabapentin 300 mg capsule 100 mg PO HS 06/06/18 01/05/24 History (Neurontin) levothyroxine 50 mcg tablet 50 mcg PO DAILYBB 06/06/18 01/05/24 History (Synthroid) linaclotide 72 mcg capsule 72 mcg PO HS 06/06/18 01/05/24 History (Linzess) multivitamin 1 tab PO QAM 06/06/18 01/05/24 History acetaminophen 500 mg tablet 500 mg PO TID 12/20/18 01/05/24 History amlodipine 5 mg tablet (Norvasc) 2.5 mg PO QAM 12/19/20 01/05/24 History aspirin 81 mg tablet,delayed 81 mg PO QAM 12/19/20 01/05/24 History release cetirizine 10 mg tablet 10 mg PO BID 12/19/20 01/05/24 History modafinil 200 mg tablet 200 mg PO QAM 12/19/20 01/05/24 History omeprazole 20 mg capsule,delayed 20 mg PO DAILYBB 12/19/20 01/05/24 History release potassium chloride 20 mEq 20 meq PO DAILY 12/19/20 01/05/24 History tablet,extended release rosuvastatin 40 mg tablet 40 mg PO HS 12/19/20 01/05/24 History mirtazapine 15 mg tablet 15 mg PO HS 06/04/22 01/05/24 History Magic Mix 1 applic topical TID 07/14/22 01/05/24 History carbamazepine 200 mg 200 mg PO BID 07/14/22 01/05/24 History capsule,extended release [id number] magnesium oxide 400 mg (241.3 mg 400 mg PO QAM #30 tabs 07/25/22 01/05/24 Rx magnesium) tablet famotidine 20 mg tablet 20 mg PO BID 01/05/24 01/05/24 History hydroxyzine HCl 10 mg tablet 20 mg PO QID 01/05/24 01/05/24 History Past Med/Surg History Problem List (Updated 01/05/24 @ 15:15 by Background Daemon) Acute hypernatremia (Acute) Acute UTI (urinary tract infection) (Acute) AMS (altered mental status) (Acute) Acute encephalopathy Severe sepsis Hypernatremia (Acute) UTI (urinary tract infection) (Acute) History of seizures (Acute) Lethargy (Acute) Skin abnormality (Acute) Altered mental status (Acute) Fever (Acute) Skin abnormality Left hemiparesis History of astrocytoma (Acute) s/p craniotomy/XRT/chemo Essential hypertension Lethargy UTI (urinary tract infection) Chronic hypernatremia DVT prophylaxis TIA (transient ischemic attack) Recurrent urticaria Dysphagia SDH (subdural hematoma) CVA (cerebral vascular accident) (Acute) Syncope (Acute) Brain TIA (Acute) Syncope DVT prophylaxis Hyperlipidemia GERD (gastroesophageal reflux disease) Hypothyroidism History of seizures Irritable bowel syndrome Hypokalemia Stroke-like symptoms Medical History Fibromyalgia Benign paroxysmal positional vertigo, bilateral History of seizure disorder History of peptic ulcer disease Chronic urticaria Irritable bowel syndrome Anxiety Depression Osteoarthritis Hypothyroidism GERD (gastroesophageal reflux disease) Hyperlipidemia Surgical History History of tubal ligation History of D&C History of carpal tunnel surgery of right wrist History of craniotomy Family History Sister Family history of reaction to anesthesia Social History Smoking Status: Never smoker Tobacco Type: Cigarettes Do You Dip or Chew Tobacco: No; Hx Alcohol Use: No Hx Substance Use: No Preferred Language: Pashto Communication Ability: Impaired Harmonic Analyst Required: No Beliefs That Will Affect Care: None marital status: Current Living Situation: Prison Current Living Situation Comment: [facility] current occupational status: unemployed and disabled 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 Physical Exam Physical Exam: General: Chronically ill-appearing, vitals as above, NAD, laying down in bed, pleasantly confused, slow to respond. A+O to self only. HEENT: Normocephalic, atraumatic. PERRL, conjunctivae normal, anicteric sclerae. External ear and nose normal, oropharynx dry. Respiratory: Normal respiratory effort, lungs clear to auscultation, no wheeze, rales, rhonchi. No accessory muscle use. Cardiovascular: Regular rate, rhythm, no murmur, normal peripheral pulses, no BLE edema. Vessels: No JVD. Abdomen/GI: Normal bowel sounds, soft, nontender, no hepatosplenomegaly. Extremities/Musculoskeletal: No cyanosis or clubbing, no tenderness or deformity noted, L-sided hemiparesis. Neurologic: EOMI, no focal deficits, CN's II-XI not formally tested but appear grossly intact bilaterally. Skin: No rashes, normal color, warm/dry. Results & Data Results & Data Vital Signs (Past 12 Hours) Vital Signs Temp Pulse Pulse Resp BP BP Pulse Ox 01/05/24 11:21 37.7 C H 73 24 119/77 95 01/05/24 10:40 79 01/05/24 10:21 37.9 C H 81 20 128/81 98 01/05/24 10:20 79 20 95 01/05/24 10:20 79 20 128/81 95 01/05/24 10:20 O2 Del Method O2 Flow Rate 01/05/24 11:21 Nasal Cannula 3 01/05/24 10:40 01/05/24 10:21 Room Air 01/05/24 10:20 Nasal Cannula 3 01/05/24 10:20 Nasal Cannula 3 01/05/24 10:20 Nasal Cannula 3 Laboratory Results Short CBC 01/05/24 Range/Units 10:30 WBC 6.85 (4.8-10.8) K/ul Hgb 14.9 (12.0-16.0) g/dl Hct 45.4 (37.0-47.0) % Plt Count 177 (130-400) K/uL BMP 01/05/24 10:30 Sodium 148 H Potassium 3.8 Chloride 113 H Carbon Dioxide 27 BUN 20 Creatinine 0.81 Glucose 95 Calcium 9.0 Liver Function 01/05/24 Range/Units 10:30 Total Bilirubin 0.6 (0.2-1.0) mg/dl AST 36 (13-39) U/L ALT 16 (7-52) U/L Alkaline Phosphatase 127 H (34-104) U/L Albumin 3.9 (3.4-5.0) gm/dl Urine 01/05/24 Range/Units 11:23 Urine Color Dark Yellow Urine Appearance Cloudy A (Clear) Urine pH 5.0 (4.5-7.5) Ur Specific [place] 1.045 H (1.000-1.030) Urine Protein 1+ H (Negative) Urine Glucose (UA) Negative (Negative) Diagnostic Findings Chest X-Ray 01/05/24 10:20 XR chest 1V portable CLINICAL HISTORY: Sepsis COMPARISON STUDY: Chest radiograph July 24, 2022. FINDINGS: Patient is mildly rotated. Lung volumes are normal. Lungs are clear. There is no pneumothorax or pleural effusion. The cardiomediastinal silhouette is stable. There is no evidence for pulmonary edema. IMPRESSION: No acute cardiopulmonary findings. No significant change in appearance of the chest. ACT 112: Negative or not required by law. Electronically signed by: Omkar Ricci M.D. 01/05/2024 10:[address] 01/05/24 10:20 CT OF THE HEAD WITHOUT CONTRAST CLINICAL HISTORY: Altered mental status. COMPARISON STUDY: Head CT July 21, 2022 and MRI of the brain July 23, 2022 CT DOSE: 625.8 mGy.cm TECHNIQUE: Helical axial images of the head were obtained without IV contrast. Automated exposure control was utilized for the study. A dose lowering technique was utilized adhering to the principles of ALARA. FINDINGS: The right frontal CSF attenuation focus is unchanged. The ventricular system is stable. Basal cisterns are patent. There are no extra axial collections. Stable postoperative findings following right sided craniotomy are noted. No acute intracranial hemorrhage is present. There is no evidence for herniation. There are no findings to suggest acute dural sinus thrombosis or acute territorial infarct. Calcifications within the right basal ganglia are again noted. There has been no change in appearance of the brain. There are no calvarial fractures matter hypodensities are unchanged and favor small vessel disease IMPRESSION: No acute intracranial findings. No change in appearance of the brain. Stable postoperative findings. ACT 112: Negative or not required by law. Electronically signed by: Omkar Ricci M.D. 01/05/2024 11:15 AM Medications Administered Discontinued Medications Acetaminophen (Ofirmev) 1,000 mg in 100 mls @ 400 mls/hr IV NOW STA Stop: 01/05/24 11:18 Last Infusion: 01/05/24 11:43 Dose: Infused Documented By: Admin: 01/05/24 11:24 Dose: 400 mls/hr Documented By: ELEAZAR Code Status & VTE Plan Code Status DNR/DNI - No Resuscitation Supervising Physician Co-Signing Physician Notes Attending addendum: The patient was seen and examined in emergency room She has multiple complicated medical problems as mentioned in H&P and was sent in from [facility] with acute confusion and shortness of breath She has been conversing with me normally during my examination and mention to have some short of breath and also involving with micturition for the last few days Denies any significant pain anywhere in the body and denies any nausea and/or vomiting On examination Lying in bed without any acute distress but looked lethargic Afebrile and hemodynamically stable and saturating normally on 3 L nasal cannula Chestdecreased breath sounds bilaterally no crackles HeartS1-S2, regular Abdomenbenign with mild tenderness in the hypogastrium Extremitiesno edema CNSalert and awake Generally weak with weakness on the left lower extremities more than the right Her admission labs, EKG and imaging studies reviewed Change in mental status likely secondary to UTI UA noted to be abnormal likely infected and culture was sent Intravenous ceftriaxone Sodium level is 148 with a known history of chronic hyponatremia likely secondary to decreased intake She was strongly advised to drink more fluid and she will be given cautious amount of intravenous fluid She will need PT and OT evaluation prior to discharge Agree with assessment plan as outlined above by Tiara Lombardi PA-C and take the full responsibility of the care DR Annie Owens (1) Altered mental status Altered mental status type: unspecified Qualified Code(s): R41.82 - Altered mental status, unspecified (2) UTI (urinary tract infection) Hematuria presence: without hematuria Urinary tract infection type: site unspecified Qualified Code(s): N39.0 - Urinary tract infection, site not specif ied
[2024-01-05] MEDS: cefTRIAXone SODIUM 2,000 MG/50 ML BAG IV STA (12:52)
--- OUTSIDE RECORDS SUMMARY | 2024-01-05 13:39 | External Medical Summary | Summary of Care ---
Author Name Unknown Organization [facility] Address [address] [place] [address] Phone [phone] Care Team Providers Care Automatic Pattern Edger Name Role Phone Nina Haile MD Primary Care Provide r Reason for Visit * Reason Onset Date Comments Detention Visit 12/07/2023 Encounter Details Date Type Department Care Team (Latest Contact Info) Description 12/07/2023 9:30 AM EDT Detention Visit [address] [address] Senait Granados PA-C [address] [place] [address] Hypernatremia*; Grade III astrocytoma (HCC); Left hemiparesis (HCC) Allergies Active Allergy Reactions Criticality Noted Date Comments Cimetidine 05/29/1999 Hair thinning Cimetidine Unknown 12/19/2020 Erythromycin 09/08/2000 GI side effects Penicillins 05/29/1999 Phenytoin Sodium 05/29/1999 Rash, hives documented as of this encounter (statuses as of 12/07/2023) Medications Medication Sig Dispensed Refills Start Date End Date Status carBAMazepine ER (CARBATROL) 100 MG CP12 Take 2 Capsules by mouth in the morning and 2 Capsules before bedtime. (0900/2100).. 60 Cap 05/31/2018 Active linaclotide (LINZESS) 72 MCG CAPS 1 Capsule every night at bedtime. 30 Cap 05/31/2018 Active levothyroxine (LEVOXYL) 50 MCG Tablet Take 1 Tablet by mouth daily first thing in the morning. (at least 30 min prior to breakfast or other meds) 30 Tab 05/31/2018 Active Multiple Vitamin (MULTI-DAY VITAMINS) Tablet Take 1 Tab by mouth daily. (0900). 30 Tab 05/31/2018 Active triamcinolone acetonide (ARISTOCORT) 0.1 % creamIndications:Ross matitis Apply to rash on the arms and legs twice daily as needed for flares or itching. 80 g 1 12/06/2018 Active aspirin enteric coated 81 MG TBEC Take 1 Tablet by mouth in the morning. (0900).. 100 Tab 12/23/2018 Active Camphor-Menthol 0.5-0.5 % External Lotion Apply topically to affected area every 2 hours as needed for Itching. 222 mL Active Emollient (CETAPHIL MOISTURIZING) CREA Apply topically to affected area. Apply from head to toe every day in the morning. Active cetirizine (ZYRTEC) 10 MG Tablet One tablet twice daily; every 12 hrs 60 Tab 6 02/15/2019 Active Omeprazole 20 MG Oral Capsule Delayed Release Take 1 Capsule by mouth in the morning. (0630).. 30 Cap 04/19/2019 Active Cyanocobalamin (VITAMIN B 12) 500 MCG TABS Take 500 mcg by mouth in the morning. Active Rosuvastatin Calcium 40 MG Oral Tablet Take 1 Tablet by mouth in the morning. 30 Tab 5 11/24/2019 Active Sennosides-Docusate Sodium 8.6-50 MG Oral Tablet Take 1 Tablet by mouth in the morning and 1 Tablet before bedtime. 03/14/2020 Active amLODIPine Besylate 5 MG Oral Tablet Take 0.5 Tablets by mouth in the morning. (0900).. 30 Tab 06/28/2020 Active Boost Oral Liquid 11/14/2021 Active Magnesium Oxide 400 (240 Mg) MG Oral Tablet (Mag-Ox) Take 1 Tablet by mouth in the morning. 07/28/2022 Active Vitamin D3 25 MCG (1000 UT) Oral Tablet (Vitamin D3) Take 1 Tablet by mouth in the morning. 11/19/2022 Active Potassium Chloride Sharda ER 20 MEQ Oral Tablet Extended Release Take 1 Tablet by mouth every afternoon. 12/03/2022 Active Acetaminophen 500 MG Oral Tablet (Tylenol) Take 1 Tablet by mouth 3 times a day. (0900/1300/1700). 12/29/2022 Active Modafinil 200 MG Oral Tablet (Provigil) Take 1 Tablet by mouth in the morning. 30 Tablet 5 04/24/2023 Active Gabapentin 100 MG Oral Capsule (Neurontin) Take 1 Capsule by mouth at bedtime. 06/10/2023 Active Mirtazapine 15 MG Oral Tablet (Remeron) Take 1 Tablet by mouth at bedtime. 07/16/2023 Active Famotidine 20 MG Oral Tablet (Pepcid) Take 1 Tablet by mouth in the morning and 1 Tablet before bedtime. 11/25/2023 Active hydrOXYzine HCl 10 MG/5ML Oral Syrup (Atarax) Take 10 mL by mouth in the morning and 10 mL at noon and 10 mL in the evening and 10 mL before bedtime. 11/25/2023 Active Lidocaine 4 % External Patch (Aspercreme) Place 1 Patch topically on the skin daily. Coccyx 11/25/2023 Active documented as of this encounter (statuses as of 12/07/2023) Active Problems Problem Noted Date Diagnosed Date DDD (degenerative disc disease), lumbosacral Hypernatremia 09/03/2022 Acquired cerebral atrophy 09/03/2022 Adult failure to thrive 09/03/2022 At high risk for aspiration 06/09/2022 Full code status 02/11/2022 Excessive sleepiness 03/21/2021 Seizure disorder 11/13/2020 Grade III astrocytoma 07/25/2019 History of kenny hole surgery 07/18/2019 Brain lesion 07/17/2019 Moderate episode of recurrent major depressive d isorder 02/16/2019 Chronic urticaria 02/15/2019 Overview: since 09/2018 Benign paroxysmal vertigo of both ears 9 Subdural hygroma 05/31/2018 Left hemiparesis 05/26/2018 HTN, goal below 140/90 08/01/2010 Dyslipidemia, goal LDL below 130 08/01/2010 ADVANCE DIRECTIVE INFORMATION 06/23/2005 Overview: Yes, Patient instructed to provide copy of advance directive for provider to review and to be scanned into Electronic Medical Record LOC PRIM [id number] 12/03/1999 Esophageal reflux 05/29/1999 Idiopathic urticaria History of peptic ulcer disease Overview: ICD-10 update of inactive term Acquired hypothyroidism documented as of this encounter (statuses as of 12/07/2023) Resolved Problems Problem Noted Date Diagnosed Date Resolved Date Moderate protein-calorie malnutrition 06/25/2022 03/25/2023 COVID-19 virus infection 12/03/202012/2020 Convulsions 02/16/2019 02/16/2019 Closed compression fracture of first lumbar vertebra 11/04/2018 2020 History of astrocytoma 05/28/201806/02 LOC (loss of consciousness) 05/26/2018 05/28/2018 History of seizure 05/26/2018 9 History of seizure disorder 07/31/2015 01/16/2021 Obesity, Class II, BMI 35-39 .9, isolated (see actual BMI) 06/04/2009 03/01/2014 Overview: Per Obesity Taxonomy Dyslipidemia, goal to be determined 02/13/2009 08/01/2010 Overview: Per Lipid Taxonomy. Dyslipidemia, goal to be determined 06/21/2003 01/31/2009 Overview: Per Lipid Taxonomy HYPERTENSION NOS 09/08/2000 08/01/2010 Overview: Modified per HTN protocol #16. Myalgia and myositis 09/08/2000 019 OBESITY, UNSPECIFIED 05/29/1999 010 Overview: Per Obesity Taxonomy Major depressive disorder Overview: ICD-10 update of inactive term History of astrocytoma 06/21 Overview: grade 3 malignant astrocytoma/ right frontal lobe Elevated liver enzymes 06/02 Overview: mild alt and ast elevation PURE HYPERCHOLESTEROLEM 10/2008 Overview: Per Lipid Taxonomy. Convulsions 06/02/2018 BMI 36.0-36.9,adult 06/03/19 19 documented as of this encounter (statuses as of 12/07/2023) Immunizations Name Administration Dates Next Due Seasonal Influenza, Trivalen t, (IIV3), with Preserv, (Fluzone) 03/01/2014,12/09/2010,11/22/2008, 0 08,01/16/2006 TDAP, Age 7 and older, IM (Adacel) 04/25/2008 documented as of this encounter Social History Tobacco Use Types Packs/Day Years Used Date Smoking Tobacco: Former Cigarettes Q uit: 03/09/1991 Smokeless Tobacco: Never Comments:no passive smoke ex posures Alcohol Use Standard Drinks/Week Comments No 0 (1 standard drink = 0.6 oz pur e alcohol) Utilities Answer Date Recorded Do you have trouble paying y our heating, water, or electric bill? (Adult - for ages 18 years and over) Not on file 08/25/2023 Is your family able to pay t he heat, water, or electric bill? (Household - for ages 0-17 years) Not on file 08/25/2023 Does your family have access to good internet? (Household - for ages 0-17 years) Not on file 08/25/2023 Social Connections Answer Date Recorded How often do you feel lonely or isolated from those around you? (Adult - for ages 18 years and over) Not on file 08/25/2023 Sex and Gender Information Value Date Recorded Sex Assigned at Not on file Gender Identity Not on file Sexual Orientation Not on file Job Start Date Occupation Industry Not on file Not on file Not on file documented as of this encounter Functional Status Functional Status Response Date of Assess ment Are you deaf or do you have serious difficulty h earing? No 07/14/2019 Are you blind or do you have serious difficulty seeing, even when wearing glasses? No 07/14/2019 Do you have serious difficul ty walking or climbing stairs? (5 years old or older) Yes 07/16/2019 Do you have difficulty dress ing or bathing? (5 years old or older) Yes 07/14/2019 Because of a physical, menta l, or emotional condition, do you have difficulty doing errands alone such as visiting a doctor s office or shopping? (15 years old or older) Yes 07/14/19 Cognitive Status Response Date of Assessm ent Because of a physical, menta l, or emotional condition, do you have serious difficulty concentrating, remembering, or making decisions? (5 years old or older) No 07/14/2019 documented as of this encounter Plan of Treatment Upcoming Encounters Date Type Department Care Team (Late st Contact Info) Description 05/26/2024 1:30 PM EDT Office Visit Allergy/Immunology [facility] [place] [address] [place] [address] Jhon Resendiz MD [address] [place] [address] 08/04/2024 3:30 PM EDT Telemedicine Hematology Oncology [facility] [address] [place] [address] Neida Hurtado MD [address] [place] [address] Health Maintenance Due Date Last Done Comments Depression Monitoring 1973 HIV Screening 1976 Albumin/Creatinine Ratio 09/13/1979 HPV/Co-Test 09/13/1991 Cologuard 2006 Colonoscopy 2006 Colorectal Cancer Screening 2006 Fecal Occult Blood Test 2006 Sigmoidoscopy 2006 Zoster Vaccines (1 of 2) 09/13/2011 DTap/Tdap Vaccines (2 - Td or Tdap) 04/25/2018 04/25/2008 Mammogram 01/03/2022 01/03/2021, 06/08, 05/28/2011, Additional history exists COVID-19 Vaccine ( season) 2023 01/01/2023, 12/19/2021, 09/23/2021, Additional history exists Influenza Vaccine (FLU shot) (#1) 2023 12/24/2022, 12/29/2021, 12/26/2016, Additional history exists Cervical Cancer Screening 02/06/2024 Pap Smear 02/06/2024 02/05/2021, /09/2011, 03/11/2010, Additional history exists TSH 11/29/2024 11/30/2023, 05/07, 06/25/2022, Additional history exists GFR 12/06/2024 12/07/2023, 11/08, 06/08/2023, Additional history exists Diabetes Screening 12/06/2026 12/07/2023, 0 12/04/2023, 06/08/2023, Additional history exists Lipid Panel 05/19/2028 05/20/2023, 05/08, 03/22/2021, Additional history exists Pneumococcal Vaccine: Pediatrics (0 to 5 Years) and At-Risk Patients (6 to 64 Years) Aged Out 01/21/2016 No longer eligible based on patient's age to complete this topic HPV (Gardasil) Vaccine Aged Out No lo nger eligible based on patient's age to complete this topic Hepatitis B Vaccine Aged Out No longe r eligible based on patient's age to complete this topic MENINGOCOCCAL (MENACTRA/MENVEO) Aged Out No longer eligible based on patient's age to complete this topic documented as of this encounter Medical Devices Not on filedocumented as of this encounter Visit Diagnoses Diagnosis Hypernatremia- Primary Hyperosmolality and/or hypernatremia Grade III astrocytoma (HCC) Malignant neoplasm of brain, unspecified site Left hemiparesis (HCC) Hemiplegia, unspecified, affecting unspecified side documented in this encounter Advance Directives * Full Code (Latest Code Status on File) Date Activated Date Inactivated Comments 07/14/2019 6:22 AM 07/17/2019 4:37 PM This order re flects the patients wishes and were consensually agreed upon. * Full Code Date Activated Date Inactivated Comments 05/24/2018 6:24 PM 05/28/2018 7:52 PM This order r eflects the patients wishes and were consensually agreed upon. Care Teams Automatic Pattern Edger Relationship Specialty Start Date End Date Nina Haile MD [address] [facility] [place] [address] PCP - General Family Medicine 10/25/19 documented as of this encounter
--- OUTSIDE RECORDS SUMMARY | 2024-01-05 13:39 | External Medical Summary ---
Author Name Unknown Address Unknown Organization [id number] [address] [place] [id number] Laboratory Report Ordering Provider Test Date Status RUSSELL CHOWDARY 12/11/2023 05:26:00 Final Observation Date Value Abnormality Reference (Units ) Status BUN 12/11/2023 05:26:00 17 6-20 (mg/dL) Final Creatinine 12/11/2023 05:26:00 0.7 0.5-1.0 (mg/dL) Final Glomerular filtration rate/1.73 sq M.predicted [Volume Rate/Area] in Serum, Plasma or Blood by Creatinine-based formula (CKD-EPI) 12/11/2023 05:26:00 >90 >=60 (mL/min) Final eGFR is calculated based on the CKD-EPI 2020 equation. Sodium 12/11/2023 05:26:00 146 135-146 (m mol/L) Final Potassium 12/11/2023 05:26:00 4.3 3.5-5.1 (m mol/L) Final Cl 12/11/2023 05:26:00 110 Above high normal 98 -107 (mmol/L) Final CO2 12/11/2023 05:26:00 27 22-32 (mmo l/L) Final Anion gap 12/11/2023 05:26:00 9 7-15 (mmol /L) Final Glucose 12/11/2023 05:26:00 96 70-120 (mg /dL) Final Calcium 12/11/2023 05:26:00 8.9 8.4-10.2 ( mg/dL) Final [facility]forming Location [facility] [address] [place] [id number]
--- OUTSIDE RECORDS SUMMARY | 2024-01-05 13:39 | External Medical Summary | Summary of Care ---
Author Name Unknown Organization [facility] Address [address] [place] [address] Phone [phone] Care Team Providers Care Freight Sales Broker Name Role Phone Nina Haile MD Primary Care Provide r Reason for Visit * Reason Onset Date Comments Fdc Visit 12/14/2023 Encounter Details Date Type Department Care Team (Latest Contact Info) Description 12/14/2023 10:00 AM EDT Fdc Visit [address] [address] Senait Granados PA-C [address] [place] [address] Dermatitis*; Grade III astrocytoma (HCC); Hypernatremia Allergies Active Allergy Reactions Criticality Noted Date Comments Cimetidine 05/29/1999 Hair thinning Cimetidine Unknown 12/19/2020 Erythromycin 09/08/2000 GI side effects Penicillins 05/29/1999 Phenytoin Sodium 05/29/1999 Rash, hives documented as of this encounter (statuses as of 12/14/2023) Medications Medication Sig Dispensed Refills Start Date [...] as of this encounter (statuses as of 12/14/2023) Active Problems Problem Noted Date Diagnosed Date [...] scanned into Electronic Medical Record LOC PRIM [id number] 12/03/1999 Esophageal reflux 05/29/1999 Idiopathic urticaria History of peptic ulcer disease Overview: ICD-10 update of inactive term Acquired hypothyroidism documented as of this encounter (statuses as of 12/14/2023) Resolved Problems Problem Noted Date Diagnosed Date [...] as of this encounter (statuses as of 12/14/2023) Immunizations Name Administration Dates Next Due Seasonal Influenza Vac., MDV , IM, 0.5 mL (Fluzone) 03/01/2014,12/09/2010,11/22/2008, 008,01/16/2006 TDAP, Age 7 and older, IM (Adacel) [...] (15 years old or older) Yes 07/14/19 20 Cognitive Status Response Date of Assessm ent Because of a physical, menta l, or emotional condition, do you have serious difficulty concentrating, remembering, or making decisions? (5 years old or older) No 07/14/2019 documented as of this encounter Progress Notes * Senait Granados PA-C - 12/14/2023 12:20 PM EDT Name: Janay Kaplan Date of :1960 TRANSITION EVENT: Type: Non-applicable Date: December 13 Code Status: No Code This note pertains to care provided at [facility]. Please see facility medical record for original note. This note is not to be edited or addended in [employer]. Editing or addending needs to occur in the facilities medical record. Subjective: Janay Kaplan is a 63 year old female. Patient being seen for rash and followup of issue Chief Complaint Patient presents with Fdc Visit HPI: I was asked to assess pt for rash and possible open area noted on pt's buttock by staff. Pt isvery sedentary due to grade III astrocytoma and s/p CVA. Pt is also incontinent of bowel and bladder. No new soaps, medications, detergents, foods. Vital signs stable. Pt was also assessed and followed over past two weeks for hypernatremia due to pt's poor oral intake of fluids at times. Fluids were encouraged over past week and IVF were not needed. Na+ levels remaining stable. CBC Results: Results for orders placed or performed in visit on 12/04/23 CBC Result Value Ref Range WBC 4.86 4.00 - 10.80 K/uL RBC 3.98 3.85 - 5.15 M/uL HGB 12.7 12.0 - 15.3 g/dL HCT 39.5 36.0 - 45.2 % MCV 99.2 81.5 - 97.5 fL MCH 31.9 27.0 - 34.0 pg MCHC 32.2 32.0 - 36.0 g/dL RDW 13.1 11.5 - 15.5 % PLT 142 140 - 400 K/uL MPV 10.3 6.6 - 11.1 fL Hemoglobin Results: Lab Results Component Value Date/Time HGB 12.7 12/04/2023 05:22 AM HGB 12.5 08/31/2023 05:27 AM HGB 12.5 06/08/2023 06:18 AM HGB 13.7 10/14/2019 05:10 AM HGB 13.9 08/03/2019 05:45 AM HGB 14.1 07/15/2019 07:04 AM HGB 15.0 05/25/1996 03:50 PM Basic Panel Results: Results for orders placed or performed in visit on 12/11/23 BASIC METABOLIC PANEL Result Value Ref Range BUN 17 6 - 20 mg/dL CREATININE 0.7 0.5 - 1.0 mg/dL EGFR >90 >=60 mL/min SODIUM 146 135 - 146 mmol/L POTASSIUM 4.3 3.5 - 5.1 mmol/L CHLORIDE 110 (H) 98 - 107 mmol/L CO2 27 22 - 32 mmol/L ANION GAP 9 7 - 15 mmol/L GLUCOSE 96 70 - 120 mg/dL CALCIUM 8.9 8.4 - 10.2 mg/dL Creatinine Results: Lab Results Component Value Date/Time CREATININE - [facility] 0.7 12/11/2023 05:26 AM CREATININE - [facility] 0.6 12/07/2023 05:25 AM CREATININE - [facility] 0.6 12/04/2023 05:22 AM CREATININE - [facility] 0.6 03/21/2020 05:50 AM CREATININE - [facility] 0.6 10/14/2019 05:10 AM CREATININE - [facility] 0.7 07/15/2019 11:36 AM CREATININE - [facility] 0.7 05/25/1996 03:50 PM Potassium Results: Lab Results Component Value Date/Time POTASSIUM - [facility] 4.3 12/11/2023 05:26 AM POTASSIUM - [facility] 4.1 12/07/2023 05:25 AM POTASSIUM - [facility] 4.1 12/04/2023 05:22 AM POTASSIUM - [facility] SPECIMEN HEMOLYZED TEST NOT PERFORMED 03/21/2020 05:50 AM POTASSIUM - [facility] 3.7 10/14/2019 05:10 AM POTASSIUM - [facility] 4.0 07/15/2019 11:36 AM POTASSIUM - [facility] 4.5 05/25/1996 03:50 PM Sodium Results: Lab Results Component Value Date/Time SODIUM - [facility] 146 12/11/2023 05:26 AM SODIUM - [facility] 147 (H) 12/07/2023 05:25 AM SODIUM - [facility] 148 (H) 12/04/2023 05:22 AM SODIUM - [facility] 134 (L) 03/21/2020 05:50 AM SODIUM - [facility] 144 10/14/2019 05:10 AM SODIUM - [facility] 137 07/15/2019 11:36 AM SODIUM - [facility] 142 05/25/1996 03:50 PM Chloride Results: Lab Results Component Value Date/Time CHLORIDE - [facility] 110 (H) 12/11/2023 05:26 AM CHLORIDE - [facility] 112 (H) 12/07/2023 05:25 AM CHLORIDE - [facility] 110 (H) 12/04/2023 05:22 AM CHLORIDE - [facility] 99 03/21/2020 05:50 AM CHLORIDE - [facility] 104 10/14/2019 05:10 AM CHLORIDE - [facility] 98 07/15/2019 11:36 AM CHLORIDE - [facility] 106 05/25/1996 03:50 PM Patient Active Problem List Diagnosis Esophageal reflux LOC PRIM [id number] Idiopathic urticaria History of peptic ulcer disease ADVANCE DIRECTIVE INFORMATION HTN, goal below 140/90 Dyslipidemia, goal LDL below 130 Acquired hypothyroidism Left hemiparesis (HCC) Subdural hygroma Benign paroxysmal vertigo of both ears Chronic urticaria Moderate episode of recurrent major depressive disorder (HCC) Brain lesion History of kenny hole surgery Grade III astrocytoma (HCC) Seizure disorder (HCC) Excessive sleepiness Full code status At high risk for aspiration Hypernatremia Acquired cerebral atrophy (HCC) Adult failure to thrive DDD (degenerative disc disease), lumbosacral Past Medical History: Diagnosis Date Acquired hypothyroidism Alopecia androgenic Benign paroxysmal vertigo of both ears 11/04/2018 BMI 36.0-36.9,adult Carpal tunnel syndrome Cellulitis of face admitted to hospital for IV abx Closed compression fracture of first lumbar vertebra (HCC) 11/04/2018 Depressive disorder, not elsewhere classified 2000 Elevated liver enzymes 09/06 Endometriosis of other specified sites 1992 Esophageal reflux Grade II astrocytoma of brain (HCC) 10/12/2019 History of seizure disorder 07/31/2015 HTN, goal below 140/90 Hyperlipidemia LDL goal < 130 Idiopathic urticaria Left hemiparesis (HCC) 05/26/2018 Malignant neoplasm of brain (HCC) Gr 3 astocytoma/craniotomy right frontal lobe/chemo radiation tx. Myalgia and myositis Myalgia and myositis Other specified acquired hypothyroidism Personal history of peptic ulcer disease Primary localized osteoarthrosis, lower leg Subdural hygroma 05/31/2018 Past Surgical History: Procedure Laterality Date ADULT ECHOCARDIOGRAM 12/21/2018 normal LV functon. LVEF 60 to 65%.mild LVH. [facility] CARPAL TUNNEL SURGERY Right 1991 right CHEST 1 VIEW 12/20/2018 pulmonary vascular congesion. trace pleural fluid left base. [facility] CRAN LOBE,NOT TEMPORAL,ELEC Dr [place], [place] right frontal lobectomy/malignant brain tumor CT HEAD/BRAIN WO CONTRAST 12/20/2018 no acute intracranial findings. [facility] CTA NECK W CONTRAST 12/20/2018 no significant occlusion, stenosis or dissection within carotid or vertebral arteries. mild scattered plaque formation. [facility] DILATION AND CURETTAGE (D&C) EKG 12/20/2018 NSR. LVH. no acute changes. [facility] LAPAROSCOPY;WITH BIOPSY times 3 Laparoscopy,w Bx- Thursday LIGATE/CUT OVIDUCT(S) MAMMOGRAM SCREENING BILATERAL 04/03/2010 cat. 1, repeat in 12mths MAMMOGRAM SCREENING BILATERAL Bilateral 07/04/14 almost entirely fat, category 1 normal MICROSURGERY ADD-ON Right 07/14/2019 MICROSURGICAL SURGERY REQUIRING MICROSCOPE LISTED SEPARATELY performed by Pankaj Mejia, [place] [facility] MRA HEAD W CONTRAST 12/20/2018 no signficant stenosis, occlusion or aneurysm wtih tyonek of armas. modeate midline shift to left unchanged from prior exam. [facility] MRI BRAIN WITH CONTRAST 12/20/2018 stable post surgical changes s/p right frontal craniotomy and resecton. no acute pathology. [facility] QIUROZ SKULL FOR BIOPSY Right 07/14/2019 KENNY HOLE BIOPSY OF BRAIN performed by Pankaj Mejia MD at OR [facility] RADIATION THERAPY DOSE PLAN,COMPLEX - 30 txs/cranium REMOVAL OF TONSILS, UNDER AGE 12 STEREOTACTIC CRANIAL INTRADURAL NAVIGATION Right 07/14/2019 STEREOTACTIC CRANIAL INTRADURAL NAVIGATION performed by Pankaj Mejia MD at OR [facility] UPPER GI ENDOSCOPY/EXAM neg test/naveen test neg. Family History Problem Relation Name Age of Onset Cancer Father unknown type Hypertension Father Heart Disorder Mother Thyroid Disorder Mother graves disease Thyroid Disorder Sister Breast Cancer No significant family history Colon cancer No significant family history Ovarian cancer No significant family history Family Status Relation Status Fa (Not Specified) Mo (Not Specified) Sis (Not Specified) No history (Not Specified) Social History Socioeconomic History Marital status: Spouse name: Not on file Number of children: 2 Years of education: Not on file Highest education level: Not on file Occupational History Occupation: disabled Tobacco Use Smoking status: Former Current packs/day: 0.00 Types: Cigarettes Quit date: 03/09/1991 Years since quittin.7 Smokeless tobacco: Never Tobacco comments: no passive smoke exposures Substance and Sexual Activity Alcohol use: No Drug use: No Sexual activity: Not Currently control/protection: Surgical Comment: btl Other Topics Concern Service Not Asked Blood Transfusions Not Asked Caffeine Concern Not Asked Occupational Exposure Not Asked Hobby Hazards Not Asked Sleep Concern Not Asked Stress Concern Not Asked Weight Concern Not Asked Special Diet Not Asked Back Care Not Asked Exercise Yes Comment: walks 3x/wk Bike Helmet Not Asked Seat Belt Not Asked Self-Exams Yes Comment: breast Social History Narrative Not on file Social Determinants of Health Financial Resource Strain: Not on file Food Insecurity: Not on file Transportation Needs: Not on file Social Connections: Unknown (08/25/2023) Social Connections How often do you feel lonely or isolated from those around you? (Adult - for ages 18 years and over): Not on file Housing Stability: Not on file Review of patient's allergies indicates: Allergen Reactions Cimetidine Hair thinning Cimetidine Unknown Erythromycin GI side effects Penicillins Phenytoin Sodium Rash, hives I have reviewed medications and allergies. Please refer to MAR in the facility's medical record forthe most up-to-date medication list as this cannot be edited in [employer]. Review of Systems: Constitutional ROS: No change in weight, No change in weakness, No change in fatigue and No fevers,sweats, or chills Nose ROS: No nasal stuffiness and No significant epistaxis Mouth/Throat ROS: No thrush or No sore throat Neck ROS: No lumps or masses, No swollen glands, No recent swelling in thyroid area and No significant pain in neck Pulmonary ROS: No cough, sputum, or hemoptysis, No wheezing, No shortness of breath and No recent change in breathing Cardiovascular ROS: No chest pain, No shortness of breath, No edema, No palpitations and No syncope Gastrointestinal ROS: No abdominal pain, No change in bowel habits, No significant change in appetite, No nausea, vomiting, diarrhea, or constipation and No dysphagi Skin/Integumentary ROS: see HPI Neurologic ROS: see HPI Psychiatric ROS: No depression, No anxiety and No psychosis Sleep: No sleep disorders OBJECTIVE: PHYSICALEXAM: LMP 03/13/2011 I reviewed the most recent facilities vitals. General: alert, no distress, well nourished and well developed Eye Exam: Conjunctiva are pink and non-injected, sclera clear Nose: no mucosal erythema, no mucosal edema, no purulent discharge Oropharynx: no exudate, no erythema, lips, buccal mucosa, and tongue normal and mucous membranes are moist Neck: supple, no adenopathy, non-tender, neck veins flat, trachea midline Heart: regular rate & rhythm, no murmurs and no gallops Lungs: normal respiratory rate and rhythm, no chest wall tenderness, lungs clear to auscultation Abdomen: abdomen soft, non-tender, normal bowel sounds and no masses or organomegaly Extremities:, no edema, no clubbing, no cyanosis Neuro Exam: alert with affected speech, hemiparesis unchanged Skin: skin color, texture, turgor are normal, scattered dermatitis buttocks. No open areas ASSESSMENT: Dermatitis (Primary) Stable Continue with topical barrier ointment as directed Grade III astrocytoma (HCC) Stable No new NV findings Contniue to follow with oncology as directed Hypernatremia Na+ normal at last testing Continue to encourage fluids PLAN: Reviewed CBC, BMP, Lytes and Continue present medication(s):as ordered. Halfway Home Treatment Given: as above Electronically signed by: Senait Granados PA-C Over 35 minutes were spent in this visit more than half the time was spent counselling or coordinating care. documented in this encounter Plan of Treatment Upcoming Encounters Date Type Department Care Team (Late st Contact Info) Description 05/26/2024 1:30 PM EDT Office Visit Allergy/Immunology [place] Suellen Alvarado [address] [facility] [place] [address] Jhon Resendiz MD [address] [facility] [place] [address] 08/04/2024 3:30 PM EDT Telemedicine Hematology Oncology [facility] [address] [place] [address] Neida Hurtado MD [address] [place] [address] Health Maintenance Due Date Last [...] Cancer Screening 02/06/2024 Pap Smear 02/06/2024 02/05/2021, 09/2011, 03/11/2010, Additional history exists TSH 11/29/2024 11/30/2023, 05/07, 06/25/2022, Additional history exists GFR 12/10/2024 12/11/2023, 11/09, 12/04/2023, Additional history exists Diabetes Screening 12/10/2026 12/11/2023, 0 12/07/2023, 12/04/2023, Additional history exists Lipid Panel 05/19/2028 05/20/2023, [...] as of this encounter Visit Diagnoses Diagnosis Dermatitis- Primary Contact dermatitis and other eczema, due to unspecified cause Grade III astrocytoma (HCC) Malignant neoplasm of brain, unspecified site Hypernatremia Hyperosmolality and/or hypernatremia documented in this encounter Advance Directives * [...] and were consensually agreed upon. Care Teams Freight Sales Broker Relationship Specialty Start Date End Date Nina Haile MD [address] [place], [place] [address] [address] PCP - General Family Medicine 10/25/19 documented as of this encounter
--- OUTSIDE RECORDS SUMMARY | 2024-01-05 13:39 | External Medical Summary | Summary of Care ---
Author Name Unknown Organization [facility] Address [address] [facility] [address] Phone [phone] Care Team Providers Care Community Health Promoter Name Role Phone Nina Haile MD Primary Care Provide r Encounter Details Date Type Department Care Team (Late st Contact Info) Description 12/11/2023 Orders Only Lab Mobile Phlebotomy [facility] [address] [place] [address] Nina Haile MD [address] [place] [address] [place] [address] Hyponatremia* Allergies Active Allergy Reactions Criticality Noted Date Comments Cimetidine 05/29/1999 Hair thinning Cimetidine Unknown 12/19/2020 Erythromycin 09/08/2000 GI side effects Penicillins 05/29/1999 Phenytoin Sodium 05/29/1999 Rash, hives documented as of this encounter (statuses as of 12/11/2023) Medications Medication Sig Dispensed Refills Start Date [...] as of this encounter (statuses as of 12/11/2023) Active Problems Problem Noted Date Diagnosed Date [...] scanned into Electronic Medical Record LOC PRIM [id number] 12/03/1999 Esophageal reflux 05/29/1999 Idiopathic urticaria History of peptic ulcer disease Overview: ICD-10 update of inactive term Acquired hypothyroidism documented as of this encounter (statuses as of 12/11/2023) Resolved Problems Problem Noted Date Diagnosed Date [...] as of this encounter (statuses as of 12/11/2023) Immunizations Name Administration Dates Next Due Seasonal [...] Care Team (Late st Contact Info) Description 12/11/2023 5:10 AM EDT Laboratory Lab Mobile Phlebotomy [facility] [address] [place] [address] [facility] [address] [facility] [place] [address] Arrived 05/26/2024 1:30 PM EDT Office Visit Allergy/Immunology [facility] [place] [address] [facility] [place] [address] Jhon Resedniz MD [address] [facility] [place] [address] 08/04/2024 3:30 PM EDT Telemedicine Hematology Oncology [facility] [address] [place] [address] Neida Hurtado MD [address] [place] [address] Scheduled Orders Name Type Priority Associated Diagnoses Orde r Schedule BASIC METABOLIC PANEL Lab Routine Hyponatremia Expected: 12/11/2023, Expires: 12/10/2024 Health Maintenance Due Date Last Done Comments [...] Cancer Screening 02/06/2024 Pap Smear 02/06/2024 02/05/2021, 03/0 09/2011, 03/11/2010, Additional history exists TSH 11/29/2024 [...] as of this encounter Visit Diagnoses Diagnosis Hyponatremia- Primary Hyposmolality and/or hyponatremia documented in this encounter Advance Directives * [...] and were consensually agreed upon. Care Teams Community Health Promoter Relationship Specialty Start Date End Date iNna Haile MD [address] [place] [address] [place] [phone] PCP - General Family Medicine 10/25/19 documented as of this encounter
--- OUTSIDE RECORDS SUMMARY | 2024-01-05 13:39 | External Medical Summary | Summary of Care ---
Author Name Unknown Organization [facility] Address [address] [place] [address] Phone [phone] Care Team Providers Care Service Support Representative Name Role Phone Nina Haile MD Primary Care Provide r Reason for Visit * Reason Onset Date Comments Other 11/26/2023 [place] Encounter Details Date Type Department Care Team (Late st Contact Info) Description 11/26/2023 Telephone Hematology Oncology [facility] [address] [place] [address] Neida Hurtado MD Other ([place]) Allergies Active Allergy Reactions Criticality Noted Date Comments Cimetidine 05/29/1999 Hair thinning Cimetidine Unknown 12/19/2020 Erythromycin 09/08/2000 GI side effects Penicillins 05/29/1999 Phenytoin Sodium 05/29/1999 Rash, hives documented as of this encounter (statuses as of 01/04/2024) Medications Medication Sig Dispensed Refills Start Date End Date Status carBAMazepine ER (CARBATROL) 100 MG CP12 Take 2 Capsules by mouth in the morning and 2 Capsules before bedtime. (00/2099).. 60 Cap 05/31/2018 Active linaclotide (LINZESS) 72 [...] Tablet by mouth 3 times a day. (00/1300/1700). 12/29/2022 Active Modafinil 200 MG Oral Tablet [...] as of this encounter (statuses as of 01/04/2024) Active Problems Problem Noted Date Diagnosed Date [...] scanned into Electronic Medical Record LOC PRIM [id number] 12/03/1999 Esophageal reflux 05/29/1999 Idiopathic urticaria History of peptic ulcer disease Overview: ICD-10 update of inactive term Acquired hypothyroidism documented as of this encounter (statuses as of 01/04/2024) Resolved Problems Problem Noted Date Diagnosed Date [...] as of this encounter (statuses as of 01/04/2024) Immunizations Name Administration Dates Next Due Seasonal [...] No 07/14/2019 documented as of this encounter Miscellaneous Notes * Telephone Encounter - Antoinette Olvera OSA - 11/26/2023 8:46 AM EDT Letter mailed notifying patient of Dr. Hurtado leaving. Letter returned to sender. Attempt will be made to notify patient of provider departure. documented in this encounter Plan of Treatment Upcoming Encounters Date Type Department Care Team (Late st Contact Info) Description 05/26/2024 1:30 PM EDT Office Visit [facility] [address] [place] [address] Jhon Resendiz MD [address] [place] [address] 08/04/2024 3:30 PM EDT Telemedicine Hematology Oncology [address] [address] Neida Hurtado MD Health Maintenance Due Date Last Done Comments Depression Monitoring 1973 HIV Screening 1976 Albumin/Creatinine Ratio 09/13/1979 HPV/Co-Test 09/13/1991 Cologuard 2006 Colonoscopy 2006 Colorectal Cancer Screening 2006 Fecal Occult Blood Test 2006 Sigmoidoscopy 2006 Zoster Vaccines (1 of 2) 09/13/2011 DTap/Tdap Vaccines (2 - Td or Tdap) 04/25/2018 04/25/2008 Mammogram 01/03/2022 01/03/2021, /09/2014, 05/28/2011, Additional history exists COVID-19 Vaccine ( [...] Not on filedocumented as of this encounter Advance Directives * Full Code (Latest Code Status on File) Date Activated Date Inactivated Comments 07/14/2019 6:22 AM 07/17/2019 4:37 PM This order re flects the patients wishes and were consensually agreed upon. * Full Code Date Activated Date Inactivated Comments 05/24/2018 6:24 PM 05/28/2018 7:52 PM This order r eflects the patients wishes and were consensually agreed upon. Care Teams Service Support Representative Relationship Specialty Start Date End Date Nina Haile MD [address] [place], [place] [address] [phone] PCP - General Family Medicine 10/25/19 documented as of this encounter
--- OUTSIDE RECORDS SUMMARY | 2024-01-05 13:40 | External Medical Summary | Summary of Care ---
Author Name Unknown Organization [facility] Address [address] [address] Phone [phone] Care Team Providers Care Clinical Dietitian Name Role Phone Nina Haile MD Primary Care Provide r Encounter Details Date Type Department Care Team (Late st Contact Info) Description 12/04/2023 Orders Only Lab Mobile Phlebotomy [facility] [address] [place] [address] Nina Haile MD [address] [place] [address] [place] [address] Fever* Allergies Active Allergy Reactions Criticality Noted Date Comments Cimetidine 05/29/1999 Hair thinning Cimetidine Unknown 12/19/2020 Erythromycin 09/08/2000 GI side effects Penicillins 05/29/1999 Phenytoin Sodium 05/29/1999 Rash, hives documented as of this encounter (statuses as of 12/04/2023) Medications Medication Sig Dispensed Refills Start Date [...] as of this encounter (statuses as of 12/04/2023) Active Problems Problem Noted Date Diagnosed Date [...] be scanned into Electronic Medical Record LOC [place] [id number] 12/03/1999 Esophageal reflux 05/29/1999 Idiopathic urticaria History of peptic ulcer disease Overview: ICD-10 update of inactive term Acquired hypothyroidism documented as of this encounter (statuses as of 12/04/2023) Resolved Problems Problem Noted Date Diagnosed Date [...] as of this encounter (statuses as of 12/04/2023) Immunizations Name Administration Dates Next Due Seasonal [...] Care Team (Late st Contact Info) Description 12/04/2023 5:10 AM EDT Laboratory Lab Mobile Phlebotomy [facility] [address] [place] [address] [place] [address] 05/26/2024 1:30 PM EDT Office Visit Allergy/Immunology [facility] [place] [address] [place] [address] Jhon Resendiz MD [address] [place] [address] 08/04/2024 3:30 PM EDT Telemedicine Hematology Oncology [facility] [address] [place] [address] Neida Hurtado MD [address] [place] [address] Scheduled Orders Name Type Priority Associated Diagnoses Orde r Schedule BASIC METABOLIC PANEL Lab Routine Fever Expected: 12/04/2023, Expires: 12/03/2024 CBC WITH WBC DIFFERENTIAL Lab Routine Fever Expected: 12/04/2023, Expires: 12/03/2024 Health Maintenance Due Date Last Done Comments [...] 02/05/2021, 03/0 09/2011, 03/11/2010, Additional history exists GFR 06/07/2024 06/08/2023, 05/07, 02/16/2023, Additional history exists TSH 11/29/2024 11/30/2023, 05/07, 06/25/2022, Additional history exists Diabetes Screening 06/07/2026 06/08/2023, 0 05/20/2023, 02/16/2023, Additional history exists Lipid Panel 05/19/2028 05/20/2023, [...] as of this encounter Visit Diagnoses Diagnosis Fever- Primary Fever, unspecified documented in this encounter Advance Directives * [...] and were consensually agreed upon. Care Teams Clinical Dietitian Relationship Specialty Start Date End Date Nina Haile MD [address] [place] [address] [place] [phone] PCP - General Family Medicine 10/25/19 documented as of this encounter
--- OUTSIDE RECORDS SUMMARY | 2024-01-05 13:40 | External Medical Summary ---
Author Name Unknown Address Unknown Organization [id number]:LABORATORY [facility] [address] [place] [id number] Laboratory Report Ordering Provider Test Date Status RUSSELL CHOWDARY 12/07/2023 05:25:00 Final Observation Date Value Abnormality Reference (Units ) Status BUN 12/07/2023 05:25:00 14 6-20 (mg/dL) Final Creatinine 12/07/2023 05:25:00 0.6 0.5-1.0 (mg/dL) Final Glomerular filtration rate/1.73 sq M.predicted [Volume Rate/Area] in Serum, Plasma or Blood by Creatinine-based formula (CKD-EPI) 12/07/2023 05:25:00 >90 >=60 (mL/min) Final eGFR is calculated based on the CKD-EPI 2020 equation. Sodium 12/07/2023 05:25:00 147 Above high normal 13 5-146 (mmol/L) Final Potassium 12/07/2023 05:25:00 4.1 3.5-5.1 (m mol/L) Final Cl 12/07/2023 05:25:00 112 Above high normal 98 -107 (mmol/L) Final CO2 12/07/2023 05:25:00 25 22-32 (mmo l/L) Final Anion gap 12/07/2023 05:25:00 10 7-15 (mmol /L) Final Glucose 12/07/2023 05:25:00 98 70-120 (mg /dL) Final Calcium 12/07/2023 05:25:00 8.8 8.4-10.2 ( mg/dL) Final Performing Location [facility]ORY [facility] [address] [place] [id number]
--- OUTSIDE RECORDS SUMMARY | 2024-01-05 13:40 | External Medical Summary ---
Author Name Unknown Address Unknown Organization [id number]:LABORATORY [facility] - [facility] [address] [facility] [address] Laboratory Report Ordering Provider Test Date Status RUSSELL CHOWDARY 11/30/2023 05:30:00 Final Observation Date Value Abnormality Reference (Units ) Status TSH 11/30/2023 05:30:00 0.71 0.27-4.20 (uIU/mL) Final Performing Location LABORATORY [facility] - [facility] [address] [place] [address]
--- OUTSIDE RECORDS SUMMARY | 2024-01-05 13:40 | External Medical Summary ---
Author Name Unknown Address Unknown Organization K[facility] [address] [place] [id number] Laboratory Report Ordering Provider Test Date Status RUSSELL CHOWDARY 12/04/2023 05:22:00 Final Observation Date Value Abnormality Reference (Units ) Status WBC, Total 12/04/2023 05:22:00 4.86 4.00-10.8 0 (K/uL) Final RBC 12/04/2023 05:22:00 3.98 3.85-5.15 (M/uL) Final Hemoglobin 12/04/2023 05:22:00 12.7 12.0-15.3 (g/dL) Final HCT 12/04/2023 05:22:00 39.5 36.0-45.2 (%) Final MCV 12/04/2023 05:22:00 99.2 81.5-97.5 (fL) Final MCH 12/04/2023 05:22:00 31.9 27.0-34.0 (pg) Final MCHC 12/04/2023 05:22:00 32.2 32.0-36.0 (g/dL) Final RDW 12/04/2023 05:22:00 13.1 11.5-15.5 (%) Final Platelets 12/04/2023 05:22:00 142 140-400 (K /uL) Final MPV 12/04/2023 05:22:00 10.3 6.6-11.1 ( fL) Final Performing Location [facility] [address] [place] [id number]
--- OUTSIDE RECORDS SUMMARY | 2024-01-05 13:40 | External Medical Summary | Summary of Care ---
Author Name Unknown Organization [facility] Address [address] [facility] [address] Phone [phone] Care Team Providers Care Art Display Maker Name Role Phone Nina Haile MD Primary Care Provide r Encounter Details Date Type Department Care Team (Late st Contact Info) Description 11/30/2023 Orders Only Lab Mobile Phlebotomy [facility] [address] [place] [address] Nina Haile MD [address] [place] [address] [place] [address] Hypothyroidism* Allergies Active Allergy Reactions Criticality Noted Date Comments Cimetidine 05/29/1999 Hair thinning Cimetidine Unknown 12/19/2020 Erythromycin 09/08/2000 GI side effects Penicillins 05/29/1999 Phenytoin Sodium 05/29/1999 Rash, hives documented as of this encounter (statuses as of 11/30/2023) Medications Medication Sig Dispensed Refills Start Date [...] as of this encounter (statuses as of 11/30/2023) Active Problems Problem Noted Date Diagnosed Date [...] be scanned into Electronic Medical Record LOC [place] [id number] 12/03/1999 Esophageal reflux 05/29/1999 Idiopathic urticaria History of peptic ulcer disease Overview: ICD-10 update of inactive term Acquired hypothyroidism documented as of this encounter (statuses as of 11/30/2023) Resolved Problems Problem Noted Date Diagnosed Date [...] as of this encounter (statuses as of 11/30/2023) Immunizations Name Administration Dates Next Due Seasonal [...] Care Team (Late st Contact Info) Description 11/30/2023 5:00 AM EDT Laboratory Lab Mobile Phlebotomy [facility] [address] [place] [address] [facility], [address] [place] [address] Arrived 05/26/2024 1:30 PM EDT Office Visit Allergy/Immunology [facility] [place] [address] [place] [address] Jhon Resendiz MD [address] [place] [address] 08/04/2024 3:30 PM EDT Telemedicine Hematology Oncology [facility] [address] [place] [address] Neida Hurtado MD [address] [place] [address] Scheduled Orders Name Type Priority Associated Diagnoses Orde r Schedule TSH WITH FREE T4 IF INDICATED Lab Routine Hypothyroidism Expected: 11/30/2023, Expires: 11/29/2024 Health Maintenance Due Date Last Done Comments Depression Monitoring 1973 HIV Screening 1976 Albumin/Creatinine Ratio 09/13/1979 HPV/Co-Test 09/13/1991 Cologuard 2006 Colonoscopy 2006 Colorectal Cancer Screening 2006 Fecal Occult Blood Test 2006 Sigmoidoscopy 2006 Zoster Vaccines (1 of 2) 09/13/2011 DTap/Tdap Vaccines (2 - Td or Tdap) 04/25/2018 04/25/2008 Mammogram 01/03/2022 01/03/2021, 04/2 09/2014, 05/28/2011, Additional history exists COVID-19 Vaccine ( season) 2023 01/01/2023, 12/19/2021, 09/23/2021, Additional history exists Influenza Vaccine (FLU shot) (#1) 2023 12/24/2022, 12/29/2021, 12/26/2016, Additional history exists Cervical Cancer Screening 02/06/2024 Pap Smear 02/06/2024 02/05/2021, 03/0 09/2011, 03/11/2010, Additional history exists TSH 05/19/2024 05/20/2023, 06/07, 05/30/2022, Additional history exists GFR 06/07/2024 06/08/2023, 05/07, 02/16/2023, Additional history exists Diabetes Screening 06/07/2026 06/08/2023, [...] as of this encounter Visit Diagnoses Diagnosis Hypothyroidism- Primary Unspecified hypothyroidism documented in this encounter Advance Directives * [...] and were consensually agreed upon. Care Teams Art Display Maker Relationship Specialty Start Date End Date Nina Haile MD [address] [place] [address] [place] [phone] PCP - General Family Medicine 10/25/19 documented as of this encounter
--- OUTSIDE RECORDS SUMMARY | 2024-01-05 13:40 | External Medical Summary ---
Author Name Unknown Address Unknown Organization K0G:LAB[facility]ORY [facility] [address] [place] [id number] Laboratory Report Ordering Provider Test Date Status RUSSELL CHOWDARY 12/04/2023 05:22:00 Final Observation Date Value Abnormality Reference (Units ) Status BUN 12/04/2023 05:22:00 15 6-20 (mg/dL) Final Creatinine 12/04/2023 05:22:00 0.6 0.5-1.0 (mg/dL) Final Glomerular filtration rate/1.73 sq M.predicted [Volume Rate/Area] in Serum, Plasma or Blood by Creatinine-based formula (CKD-EPI) 12/04/2023 05:22:00 >90 >=60 (mL/min) Final eGFR is calculated based on the CKD-EPI 2020 equation. Sodium 12/04/2023 05:22:00 148 Above high normal 13 5-146 (mmol/L) Final Potassium 12/04/2023 05:22:00 4.1 3.5-5.1 (m mol/L) Final Cl 12/04/2023 05:22:00 110 Above high normal 98 -107 (mmol/L) Final CO2 12/04/2023 05:22:00 25 22-32 (mmo l/L) Final Anion gap 12/04/2023 05:22:00 13 7-15 (mmol /L) Final Glucose 12/04/2023 05:22:00 111 70-120 (mg /dL) Final Calcium 12/04/2023 05:22:00 9.1 8.4-10.2 ( mg/dL) Final Performing Location LAB[facility]ORY [facility] [address] [place] [id number]
--- OUTSIDE RECORDS SUMMARY | 2024-01-05 13:40 | External Medical Summary | Summary of Care ---
Author Name Unknown Organization [facility] Address [address] [place] [address] Phone [phone] Care Team Providers Care Motion Graphics Artist Name Role Phone Nina Haile MD Primary Care Provide r Reason for Visit * Reason Onset Date Comments Complicated Acute Visit 12/04/2023 Encounter Details Date Type Department Care Team (Latest Contact Info) Description 12/04/2023 9:30 AM EDT [facility] Visit [address] [address] Senait Granados PA-C [address] [place] [address] Dyspnea, unspecified type*; Hypernatremia; Grade III astrocytoma (HCC); Left hemiparesis (HCC) [...] scanned into Electronic Medical Record LOC PRIM [id number] 12/03/1999 Esophageal reflux 05/29/1999 Idiopathic urticaria History [...] Progress Notes * Senait Granados PA-C - 12/04/2023 9:43 AM EDT Name: Janay Kaplan Date of :1960 TRANSITION EVENT: Type: Complicated acute visit Date: December 03 Code Status: No Code This note pertains to care provided at [facility]. Please see facility medical record for original note. This note is not to be edited or addended in [facility]. Editing or addending needs to occur in the facilities medical record. Subjective: Janay Kaplan is a 63 year old female. Patient being seen for acute visit Chief Complaint Patient presents with Complicated Acute Visit HPI: I was asked to assess pt for sudden onset last evening of dyspnea at rest. O2 saturation stayed in low 90's% on room air but improved with application of nasal O2. Pt denied any chest pains, palpitations, cough, chills, fever, facial weakness or change in NV status of her extremities. Vital signs remained stable. CXR is pending. ECG done showed NSR with no acute changes. This morning, pt states "I'm a 100% better". She has no further dyspnea or symptoms. She ate her breakfast as usual. Vital signs remain stable. She states she slept well throughout the rest of the night. Pt' had Covid 19 testing and negative. Pt had BMP drawn this morning and her Na+ is 148. Pt has had hx of hypernatremia in the past which required IVF as well as fluid encouragement to correct. Pt hasn't had any issues with hypernatremia in quite some time. CBC Results: Results for orders placed or [...] placed or performed in visit on 12/04/23 BASIC METABOLIC PANEL Result Value Ref Range BUN 15 6 - 20 mg/dL CREATININE 0.6 0.5 - 1.0 mg/dL EGFR >90 >=60 mL/min SODIUM 148 (H) 135 - 146 mmol/L POTASSIUM 4.1 3.5 - 5.1 mmol/L CHLORIDE 110 (H) 98 - 107 mmol/L CO2 25 22 - 32 mmol/L ANION GAP 13 7 - 15 mmol/L GLUCOSE 111 70 - 120 mg/dL CALCIUM 9.1 8.4 - 10.2 mg/dL Creatinine Results: Lab Results Component Value Date/Time CREATININE - [facility] 0.6 12/04/2023 05:22 AM CREATININE - [facility] 0.6 06/08/2023 06:18 AM CREATININE - [facility] 0.6 05/20/2023 05:46 AM CREATININE - [facility] 0.6 03/21/2020 05:50 AM CREATININE - [facility] 0.6 10/14/2019 05:10 AM CREATININE - [facility] 0.7 07/15/2019 11:36 AM CREATININE - [facility] 0.7 05/25/1996 03:50 PM Potassium Results: Lab Results Component Value Date/Time POTASSIUM - [facility] 4.1 12/04/2023 05:22 AM POTASSIUM - [facility] 3.8 06/08/2023 06:18 AM POTASSIUM - [facility] 4.0 05/20/2023 05:46 AM POTASSIUM - [facility] SPECIMEN HEMOLYZED TEST NOT PERFORMED 03/21/2020 05:50 AM POTASSIUM - [facility] 3.7 10/14/2019 05:10 AM POTASSIUM - [facility] 4.0 07/15/2019 11:36 AM POTASSIUM - [facility] 4.5 05/25/1996 03:50 PM Sodium Results: Lab Results Component Value Date/Time SODIUM - [facility] 148 (H) 12/04/2023 05:22 AM SODIUM - [facility] 141 06/08/2023 06:18 AM SODIUM - [facility] 146 05/20/2023 05:46 AM SODIUM - [facility] 134 (L) 03/21/2020 05:50 AM SODIUM - [facility] 144 10/14/2019 05:10 AM SODIUM - [facility] 137 07/15/2019 11:36 AM SODIUM - [facility] 142 05/25/1996 03:50 PM Chloride Results: Lab Results Component Value Date/Time CHLORIDE - [facility] 110 (H) 12/04/2023 05:22 AM CHLORIDE - [facility] 106 06/08/2023 06:18 AM CHLORIDE - [facility] 112 (H) 05/20/2023 05:46 AM CHLORIDE - [facility] 99 03/21/2020 05:50 AM CHLORIDE - [facility] 104 10/14/2019 05:10 AM CHLORIDE - [facility] 98 07/15/2019 11:36 AM CHLORIDE - [facility] 106 05/25/1996 03:50 PM Patient Active Problem List Diagnosis Esophageal reflux LOC PRIM [id number] Idiopathic urticaria History of peptic ulcer disease [...] LV functon. LVEF 60 to 65%.mild LVH. [facility] CARPAL TUNNEL SURGERY Right 1991 right CHEST 1 VIEW 12/20/2018 pulmonary vascular congesion. trace pleural fluid left base. [facility] CRAN LOBE,NOT TEMPORAL,ELEC Dr [place], [place] right frontal lobectomy/malignant brain tumor CT HEAD/BRAIN WO CONTRAST 12/20/2018 no acute intracranial findings. [facility] CTA NECK W CONTRAST 12/20/2018 no significant occlusion, stenosis or dissection within carotid or vertebral arteries. mild scattered plaque formation. [facility] DILATION AND CURETTAGE (D&C) EKG 12/20/2018 NSR. LVH. no acute changes. [facility] LAPAROSCOPY;WITH BIOPSY times 3 Laparoscopy,w Lisa- Thursday LIGATE/CUT OVIDUCT(S) MAMMOGRAM SCREENING BILATERAL 04/03/2010 cat. 1, repeat in 12mths MAMMOGRAM SCREENING BILATERAL Bilateral 07/04/14 almost entirely fat, category 1 normal MICROSURGERY ADD-ON Right 07/14/2019 MICROSURGICAL SURGERY REQUIRING MICROSCOPE LISTED SEPARATELY [facility] MRA HEAD W CONTRAST 12/20/2018 no signficant stenosis, occlusion or aneurysm wtih lower [place] of armas. modeate midline shift to left unchanged from prior exam. [facility] MRI BRAIN WITH CONTRAST 12/20/2018 stable post surgical changes s/p right frontal craniotomy and resecton. no acute pathology. [facility] QUIROZ SKULL FOR BIOPSY Right 07/14/2019 KENNY HOLE BIOPSY OF BRAIN performed by Pankaj Mejia MD at OR [facility] RADIATION THERAPY DOSE PLAN,COMPLEX - 30 txs/cranium REMOVAL OF TONSILS, UNDER AGE 12 STEREOTACTIC CRANIAL INTRADURAL NAVIGATION Right 07/14/2019 STEREOTACTIC CRANIAL INTRADURAL NAVIGATION performed by Pankaj Mejia MD at OR [facility] UPPER GI ENDOSCOPY/EXAM neg test/naveen test neg. [...] list as this cannot be edited in [facility]. Review of Systems: Constitutional ROS: No change in weight, No change in weakness, No change in fatigue and No fevers,sweats, or chills Nose ROS: No nasal stuffiness and No significant epistaxis Mouth/Throat ROS: No thrush or No sore throat Neck ROS: No lumps or masses, No swollen glands, No recent swelling in thyroid area and No significant pain in neck Pulmonary ROS: see HPI Cardiovascular ROS: see HPI Gastrointestinal ROS: No abdominal pain, No change in bowel habits, No significant change in appetite, No nausea, vomiting, diarrhea, or constipation and No dysphagia Skin/Integumentary ROS: No rash and No itching Neurologic ROS: s/p CVA with left hemiparesis, grade III astrocytoma Psychiatric ROS: No depression, No anxiety and [...] bowel sounds and no masses or organomegaly Extremities: no edema, no clubbing, no cyanosis Neuro Exam: alert & oriented x 3 with affected unchanged speech, left hemiparesis unchanged Skin: skin color, texture, turgor are normal, no rashes or significant lesions ASSESSMENT: Dyspnea, unspecified type (Primary) Completely resolved this morning ECG reviewed and stable Awaiting CXR Will follow closely Hypernatremia Pt's Na+ starting to rise again Will encourage oral fluids Repeat BMP on next lab draw Grade III astrocytoma (HCC) Stable no new NV findings Follows with oncology as directed Left hemiparesis (HCC) Stable no new NV findings PLAN: Reviewed CBC, BMP, Lytes and Continue present medication(s):as ordered. [facility] Given: as above Electronically signed by: Senait Granados PA-C Over 45 minutes were spent in this visit more than half the time was spent counselling or coordinating care. documented in this encounter Plan of Treatment Upcoming Encounters Date Type Department Care Team (Late st Contact Info) Description 05/26/2024 1:30 PM EDT Office Visit Allergy/[facility] [place] [address] [facility] [place] [address] Jhon Resendiz MD [address] [facility] [place] [address] 08/04/2024 3:30 PM EDT Telemedicine Hematology Oncology [facility] [address] [place] [address] Neida Hurtado MD [address] [place], [place] [id number] Health Maintenance Due Date Last Done Comments Depression Monitoring 1973 HIV Screening 1976 Albumin/Creatinine Ratio 09/13/1979 HPV/Co-Test 09/13/1991 Cologuard 2006 Colonoscopy 2006 Colorectal Cancer Screening 2006 Fecal Occult Blood Test 2006 Sigmoidoscopy 2006 Zoster Vaccines (1 of 2) 09/13/2011 DTap/Tdap Vaccines (2 - Td or Tdap) 04/25/2018 04/25/2008 Mammogram 01/03/2022 01/03/2021, /09/2014, 05/28/2011, Additional history exists COVID-19 Vaccine ( - season) 2023 01/01/2023, 12/19/2021, 09/23/2021, Additional history exists Influenza Vaccine (FLU shot) (#1) 2023 12/24/2022, 12/29/2021, 12/26/2016, Additional history exists Cervical Cancer Screening 02/06/2024 Pap Smear 02/06/2024 02/05/2021, 0 09/2011, 03/11/2010, Additional history exists TSH 11/29/2024 11/30/2023, 05/07, 06/25/2022, Additional history exists GFR 12/03/2024 12/04/2023, 04/0 03/2023, 05/20/2023, Additional history exists Diabetes Screening 12/03/2026 12/04/2023, 0 06/08/2023, 05/20/2023, Additional history exists Lipid Panel 05/19/2028 05/20/2023, [...] as of this encounter Visit Diagnoses Diagnosis Dyspnea, unspecified type- Primary Hypernatremia Hyperosmolality and/or hypernatremia Grade III astrocytoma (HCC) [...] and were consensually agreed upon. Care Teams Motion Graphics Artist Relationship Specialty Start Date End Date Nina Haile MD [address] [facility] [place] [address] PCP - General Family Medicine 10/25/19 documented as of this encounter
--- OUTSIDE RECORDS SUMMARY | 2024-01-05 13:40 | External Medical Summary | Summary of Care ---
Author Name Unknown Organization [facility] Address [address] [facility] [place] [address] Phone [phone] Care Team Providers Care Computer System Specialist Name Role Phone Nina Haile MD Primary Care Provide r Encounter Details Date Type Department Care Team (Late st Contact Info) Description 12/07/2023 Orders Only Lab Mobile Phlebotomy [facility] [address] [place] [address] Nina Haile MD [address] [place] [address] [place] [address] Hypernatremia* Allergies Active Allergy Reactions Criticality Noted Date [...] scanned into Electronic Medical Record LOC PRIM [id number] 12/03/1999 Esophageal reflux 05/29/1999 Idiopathic urticaria History [...] Care Team (Late st Contact Info) Description 12/07/2023 5:00 AM EDT Laboratory Lab Mobile Phlebotomy [facility] [address] [place] [address] [facility], [address] [place] [address] Arrived 05/26/2024 1:30 PM EDT Office Visit Allergy/Immunology [employer] [address] [place] [address] Jhon Resendiz MD [address] [place] [address] 08/04/2024 3:30 PM EDT Telemedicine Hematology Oncology [facility] [address] [place] [address] Neida Hurtado MD [address] [place] [address] Scheduled Orders Name Type Priority Associated Diagnoses Orde r Schedule BASIC METABOLIC PANEL Lab Routine Hypernatremia Expected: 12/07/2023, Expires: 12/06/2024 Health Maintenance Due Date Last Done Comments Depression Monitoring 1973 HIV Screening 1976 Albumin/Creatinine Ratio 09/13/1979 HPV/Co-Test 09/13/1991 Cologuard 2006 Colonoscopy 2006 Colorectal Cancer Screening 2006 Fecal Occult Blood Test 2006 Sigmoidoscopy 2006 Zoster Vaccines (1 of 2) 09/13/2011 DTap/Tdap Vaccines (2 - Td or Tdap) 04/25/2018 04/25/2008 Mammogram 01/03/2022 01/03/2021, 04/09/2014, 05/28/2011, Additional history exists COVID-19 Vaccine ( season) 2023 01/01/2023, 12/19/2021, 09/23/2021, Additional history exists Influenza Vaccine (FLU shot) (#1) 2023 12/24/2022, 12/29/2021, 12/26/2016, Additional history exists Cervical Cancer Screening 02/06/2024 Pap Smear 02/06/2024 02/05/2021, 03/0 09/2011, 03/11/2010, Additional history exists TSH 11/29/2024 11/30/2023, 1 05/2023, 06/25/2022, Additional history exists GFR 12/03/2024 12/04/2023, 04/0 03/2023, 05/20/2023, Additional history exists Diabetes Screening 12/03/2026 12/04/2023, 0 06/08/2023, 05/20/2023, Additional history exists Lipid Panel 05/19/2028 05/20/2023, 2 06/2022, 03/22/2021, Additional history exists Pneumococcal Vaccine: Pediatrics [...] Diagnoses Diagnosis Hypernatremia- Primary Hyperosmolality and/or hypernatremia documented in this encounter [...] and were consensually agreed upon. Care Teams Computer System Specialist Relationship Specialty Start Date End Date Nina Haile MD [address] [place], [place] [address] [address] PCP - General Family Medicine 10/25/19 documented as of this encounter
--- OUTSIDE RECORDS SUMMARY | 2024-01-05 13:40 | External Medical Summary ---
Author Name Unknown Address Unknown Organization K0G:[facility] [address] [place] [address] Laboratory Report Ordering Provider Test Date Status RUSSELL CHOWDARY 12/04/2023 05:22:00 Final Observation Date Value Abnormality Reference (Units ) Status SYNC LEUKOCYTES IN BLOOD BY AUTOMATED COUNT 12/04/2023 05:22:00 4.86 4.00-10.80 (K/uL) Final Segs 12/04/2023 05:22:00 60.5 40.0-75.0 (%) Final Lymphs % 12/04/2023 05:22:00 32.3 18.0-42.0 (%) Final Monos 12/04/2023 05:22:00 7.2 1.0-11.0 (%) Final Eosinophils 12/04/2023 05:22:00 0.0 0.0-6.0 (%) Final Basos 12/04/2023 05:22:00 0.0 0.0-2.0 (%) Final Absolute Segs 12/04/2023 05:22:00 2.94 1.80-7.70 (K/uL) Final Lymphs, absolute 12/04/2023 05:22:00 1.57 1.00-4.80 (K/ul) Final Monos, Abs 12/04/2023 05:22:00 0.35 0.00-1.10 (K/uL) Final Eos, Abs 12/04/2023 05:22:00 0.00 0.00-0.70 (K/uL) Final Basos, Abs 12/04/2023 05:22:00 0.00 0.00-0.20 (K/uL) Final Performing Location [facility] [address] [place] [address]
--- OUTSIDE RECORDS SUMMARY | 2024-01-05 13:41 | External Medical Summary | Summary of Care ---
Author Name Unknown Organization [facility] Address [address] [facility] [address] Phone [phone] Care Team Providers Care In Home Caregiver Name Role Phone Nina Haile MD Primary Care Provide r Reason for Visit * Reason Onset Date Comments [facility] Visit 11/12/2023 Encounter Details Date Type Department Care Team (Latest Contact Info) Description 11/12/2023 8:30 AM EDT [facility] Visit [facility] [address] [place] [address] Senait Granados PA-C [address] [place] [address] Chronic urticaria*; Grade III astrocytoma (HCC); Seizure disorder (HCC) Allergies Active Allergy Reactions Criticality Noted Date Comments Cimetidine 05/29/1999 Hair thinning Cimetidine Unknown 12/19/2020 Erythromycin 09/08/2000 GI side effects Penicillins 05/29/1999 Phenytoin Sodium 05/29/1999 Rash, hives documented as of this encounter (statuses as of 11/12/2023) Medications Medication Sig Dispensed Refills Start Date [...] the morning. 30 Tab 5 11/24/2019 Active [place]-3 Fatty Acids (FISH OIL) 1200 MG CAPS Take 1 Capsule by mouth in the morning. 30 Cap Active Sennosides-Docusate Sodium 8.6-50 MG Oral Tablet [...] Tablet by mouth at bedtime. 07/16/2023 Active documented as of this encounter (statuses as of 11/12/2023) Active Problems Problem Noted Date Diagnosed Date [...] scanned into Electronic Medical Record LOC PRIM [id number] 12/03/1999 Esophageal reflux 05/29/1999 Idiopathic urticaria History of peptic ulcer disease Overview: ICD-10 update of inactive term Acquired hypothyroidism documented as of this encounter (statuses as of 11/12/2023) Resolved Problems Problem Noted Date Diagnosed Date [...] as of this encounter (statuses as of 11/12/2023) Immunizations Name Administration Dates Next Due Seasonal [...] Care Team (Late st Contact Info) Description 08/04/2024 3:30 PM EDT Telemedicine Hematology Oncology [facility] [address] [place] [address] Neida Hurtado MD [address] [place] [address] Health Maintenance Due Date Last Done Comments Depression Monitoring 1973 HIV Screening 1976 Albumin/Creatinine Ratio 09/13/1979 HPV/Co-Test 09/13/1991 Cologuard 2006 Colonoscopy 2006 Colorectal Cancer Screening 2006 Fecal Occult Blood Test 2006 Sigmoidoscopy 2006 Zoster Vaccines (1 of 2) 09/13/2011 DTap/Tdap Vaccines (2 - Td or Tdap) 04/25/2018 04/25/2008 Mammogram 01/03/2022 01/03/2021, 06/08, 05/28/2011, Additional history exists Influenza Vaccine (FLU shot) [...] on patient's age to complete this topic COVID-19 Vaccine Completed 01/01/2023, , 09/23/2021, Additional history exists HPV (Gardasil) Vaccine Aged Out No lo [...] as of this encounter Visit Diagnoses Diagnosis Chronic urticaria- Primary Other specified urticaria Grade III astrocytoma (HCC) Malignant neoplasm of brain, unspecified site Seizure disorder (HCC) Unspecified epilepsy without mention of intractable epilepsy documented in this encounter Advance Directives * [...] and were consensually agreed upon. Care Teams In Home Caregiver Relationship Specialty Start Date End Date [facility] [address] [facility] [address] PCP - General Family Medicine 10/25/19 documented as of this encounter
--- OUTSIDE RECORDS SUMMARY | 2024-01-05 13:41 | External Medical Summary ---
Author Name Unknown Address Unknown Organization K01:[facility] [address] [place] [address] Laboratory Report Ordering Provider Test Date Status RUSSELL CHOWDARY 09/25/2023 05:30:00 Final Observation Date Value Abnormality Reference (Units ) Status Carbamazepine 09/25/2023 05:30:00 6.7 4.0-12 .0 (ug/mL) Final Performing Location [facility] - [address] [place] [address]
--- OUTSIDE RECORDS SUMMARY | 2024-01-05 13:41 | External Medical Summary | Summary of Care ---
Author Name Unknown Organization [facility] Address [address] [place] [facility] [place] [place] [address] Phone [phone] Care Team Providers Care [employer] Truck Driver Name Role Phone Nina Haile MD Primary Care Provide r Reason for Visit * Reason Onset Date Comments Health Maintenance 11/23/2023 Encounter Details Date Type Department Care Team (Late st Contact Info) Description 11/23/2023 Telephone Family Medicine [address] [phone] Nina Haile MD [address] [place] [address] [place] [address] Health Maintenance Allergies Active Allergy Reactions Criticality Noted Date Comments Cimetidine 05/29/1999 Hair thinning Cimetidine Unknown 12/19/2020 Erythromycin 09/08/2000 GI side effects Penicillins 05/29/1999 Phenytoin Sodium 05/29/1999 Rash, hives documented as of this encounter (statuses as of 11/23/2023) Medications Medication Sig Dispensed Refills Start Date [...] the morning. 30 Tab 5 11/24/2019 Active [place]-3 Fatty Acids (FISH OIL) 1200 MG CAPS [...] as of this encounter (statuses as of 11/23/2023) Active Problems Problem Noted Date Diagnosed Date [...] scanned into Electronic Medical Record LOC PRIM [id number] 12/03/1999 Esophageal reflux 05/29/1999 Idiopathic urticaria History of peptic ulcer disease Overview: ICD-10 update of inactive term Acquired hypothyroidism documented as of this encounter (statuses as of 11/23/2023) Resolved Problems Problem Noted Date Diagnosed Date [...] as of this encounter (statuses as of 11/23/2023) Immunizations Name Administration Dates Next Due Seasonal [...] encounter Miscellaneous Notes * Telephone Encounter - Jordyn Gan LPN - 11/23/2023 12:28 PM EDT Care Gaps Comprehensive Care Outreach Last Office/Telemedicine Visit: Visit date not found (in office), Visit date not found (telemedicine) Next Office Visit: Visit date not found Hemoglobin AIC Results: Lab Results Component Value Date/Time HEMOGLOBIN A1C - [facility] 5.1 01/27/2011 04:20 PM BP Readings from Last 1 Encounters: 12/29/22 108/75 Reviewed Health Maintenance below: Health Maintenance Topic Date Due Depression Monitoring Never done HIV Screening Never done Albumin/Creatinine Ratio Never done Colorectal Cancer Screening Never done Zoster Vaccines (1 of 2) Never done DTap/Tdap Vaccines (2 - Td or Tdap) 04/25/2018 Mammogram 01/03/2022 Influenza Vaccine (FLU shot) (1) 11/08/2023 COVID-19 Vaccine ( season) 2023 Cervical Cancer Screening 02/06/2024 snf Care Gap Outreach Action Taken: Outreach not indicated documented in this encounter Plan of Treatment Upcoming Encounters Date Type Department Care Team (Late st Contact Info) Description 11/27/2023 9:00 AM EDT Office Visit Allergy/Immunology [facility] [address] [facility] [address] Jhon Resendiz MD [address] [place] [address] 08/04/2024 3:30 PM EDT Telemedicine Hematology Oncology [facility] [address] [place] [address] Neida Hurtado MD [address] [facility] [place] [id number] Health Maintenance Due Date Last Done Comments [...] and were consensually agreed upon. Care Teams [employer] Truck Driver Relationship Specialty Start Date End Date Nina Haile MD [address] [place] [address] [place] [address] PCP - General Family Medicine 10/25/19 documented as of this encounter
--- OUTSIDE RECORDS SUMMARY | 2024-01-05 13:41 | External Medical Summary | Summary of Care ---
Author Name Unknown Organization [facility] Address [address] [place] [address] Phone [phone] Care Team Providers Care Footwear Stitcher Name Role Phone Nina Haile MD Primary Care Provide r Reason for Visit * Reason Onset Date Comments Senior Living Visit 10/14/2023 Encounter Details Date Type Department Care Team (Latest Contact Info) Description 10/14/2023 7:00 AM EDT Senior Living Visit [facility] [address] [place] [address] Senait Granados PA-C [address] [place], [place] [id number] Dysuria*; Fever, unspecified fever cause; Candidal vulvovaginitis; Grade III astrocytoma (HCC) Allergies Active Allergy Reactions Criticality Noted Date Comments Cimetidine 05/29/1999 Hair thinning Cimetidine Unknown 12/19/2020 Erythromycin 09/08/2000 GI side effects Penicillins 05/29/1999 Phenytoin Sodium 05/29/1999 Rash, hives documented as of this encounter (statuses as of 10/14/2023) Medications Medication Sig Dispensed Refills Start Date [...] the morning. 30 Tab 5 11/24/2019 Active [place]-3 Fatty Acids (FISH OIL) 1200 MG CAPS [...] as of this encounter (statuses as of 10/14/2023) Active Problems Problem Noted Date Diagnosed Date [...] scanned into Electronic Medical Record LOC PRIM [id number] 12/03/1999 Esophageal reflux 05/29/1999 Idiopathic urticaria History of peptic ulcer disease Overview: remote/1980's ICD-10 update of inactive term Acquired hypothyroidism documented as of this encounter (statuses as of 10/14/2023) Resolved Problems Problem Noted Date Diagnosed Date [...] Per Lipid Taxonomy. Convulsions 06/02/2018 BMI 36.0-36.9,adult 03/27/20 19 documented as of this encounter (statuses as of 10/14/2023) Immunizations Name Administration Dates Next Due Seasonal Influenza, Split, I IV3, With Preserve, Inj 03/01/2014,12/09/2010,11/22/2008, 0 08,01/16/2006 TDAP, Age 8 and [...] Progress Notes * Senait Granados PA-C - 10/14/2023 11:43 AM EDT Name: Janay Kaplan Date of :1960 TRANSITION EVENT: Type: Non-applicable Date: October 13 Code Status: No Code This note pertains to care provided at [facility]. Please see facility medical record for original note. This note is not to be edited or addended in [facility]. Editing or addending needs to occur in the facilities medical record. Subjective: Janay Kaplan is a 63 year old female. Patient being seen for two issues Chief Complaint Patient presents with Senior Living Visit HPI: I was asked to assess pt for complaints of dysuria mostly before and after voiding over past two days. Pt has hx of UTi's. Having low grade fevers up to 99.9 F. No chills, abdominal pains, back pain, nausea, vomiting. No gross hematuria. Pt also was noted by staff to have external genitalia redness and irritation. No discharge, chills.Low grade fever as above. Pt is not a diabetic. Was on prolonged course of prednisone recently due to flare of idiopathic urticaria. CBC Results: Results for orders placed or performed in visit on 08/31/23 CBC Result Value Ref Range WBC 5.65 4.00 - 10.80 K/uL RBC 3.91 3.85 - 5.15 M/uL HGB 12.5 12.0 - 15.3 g/dL HCT 38.3 36.0 - 45.2 % MCV 98.0 81.5 - 97.5 fL MCH 32.0 27.0 - 34.0 pg MCHC 32.6 32.0 - 36.0 g/dL RDW 12.1 11.5 - 15.5 % PLT 146 140 - 400 K/uL MPV 10.6 6.6 - 11.1 fL Hemoglobin Results: Lab Results Component Value Date/Time HGB 12.5 08/31/2023 05:27 AM HGB 12.5 06/08/2023 06:18 AM HGB 12.5 05/20/2023 05:46 AM HGB 13.7 10/14/2019 05:10 AM HGB 13.9 08/03/2019 05:45 AM HGB 14.1 07/15/2019 07:04 AM HGB 15.0 05/25/1996 03:50 PM Basic Panel Results: Results for orders placed or performed in visit on 05/20/23 BASIC METABOLIC PANEL Result Value Ref Range BUN 12 6 - 20 mg/dL Creatinine 0.6 0.5 - 1.0 mg/dL Estimated Glomerular Filtration Rate >90 >=60 mL/min Sodium 146 135 - 146 mmol/L Potassium 4.0 3.5 - 5.1 mmol/L Chloride 112 (H) 98 - 107 mmol/L CO2 26 22 - 32 mmol/L Anion Gap 8 7 - 15 mmol/L Glucose 103 70 - 120 mg/dL Calcium 8.8 8.4 - 10.2 mg/dL Creatinine Results: Lab Results Component Value Date/Time CREATININE 0.7 05/25/1996 03:50 PM CREATININE - [facility] 0.6 06/08/2023 06:18 AM CREATININE - [facility] 0.6 05/20/2023 05:46 AM CREATININE - [facility] 0.6 02/16/2023 05:57 AM CREATININE - [facility] 0.6 03/21/2020 05:50 AM CREATININE - [facility] 0.6 10/14/2019 05:10 AM CREATININE - [facility] 0.7 07/15/2019 11:36 AM Potassium Results: Lab Results Component Value Date/Time POTASSIUM 4.5 05/25/1996 03:50 PM POTASSIUM - [facility] 3.8 06/08/2023 06:18 AM POTASSIUM - [facility] 4.0 05/20/2023 05:46 AM POTASSIUM - [facility] 4.2 02/16/2023 05:57 AM POTASSIUM - [facility] SPECIMEN HEMOLYZED TEST NOT PERFORMED 03/21/2020 05:50 AM POTASSIUM - [facility] 3.7 10/14/2019 05:10 AM POTASSIUM - [facility] 4.0 07/15/2019 11:36 AM Sodium Results: Lab Results Component Value Date/Time SODIUM 142 05/25/1996 03:50 PM SODIUM - [facility] 141 06/08/2023 06:18 AM SODIUM - [facility] 146 05/20/2023 05:46 AM SODIUM - [facility] 144 02/16/2023 05:57 AM SODIUM - [facility] 134 (L) 03/21/2020 05:50 AM SODIUM - [facility] 144 10/14/2019 05:10 AM SODIUM - [facility] 137 07/15/2019 11:36 AM TSH Results: Lab Results Component Value Date/Time TSH - [facility] 1.03 05/20/2023 05:46 AM TSH - [facility] 0.28 06/25/2022 05:00 AM TSH - [facility] 0.17 (L) 05/30/2022 05:18 AM TSH - [facility] 0.39 06/24/2019 01:26 AM TSH - [facility] 1.42 07/16/2018 05:47 AM TSH - [facility] 1.03 07/08/2016 10:17 AM Patient Active Problem List Diagnosis Esophageal reflux LOC PRIM [id number] Idiopathic urticaria History of peptic ulcer disease [...] LV functon. LVEF 60 to 65%.mild LVH. [facility] CARPAL TUNNEL SURGERY Right 1991 right CHEST 1 VIEW 12/20/2018 pulmonary vascular congesion. trace pleural fluid left base. [facility] CRAN LOBE,NOT TEMPORAL,ELEC Dr [place], [place] right frontal lobectomy/malignant brain tumor CT HEAD/BRAIN WO CONTRAST 12/20/2018 no acute intracranial findings. [facility] CTA NECK W CONTRAST 12/20/2018 no significant occlusion, stenosis or dissection within carotid or vertebral arteries. mild scattered plaque formation. [facility] DILATION AND CURETTAGE (D&C) EKG 12/20/2018 NSR. LVH. no acute changes. [facility] LAPAROSCOPY;WITH BIOPSY times 3 Laparoscopy,w Bx- Thursday LIGATE/CUT OVIDUCT(S) MAMMOGRAM SCREENING BILATERAL 04/03/2010 cat. 1, repeat in 12mths MAMMOGRAM SCREENING BILATERAL Bilateral 07/04/14 almost entirely fat, category 1 normal MICROSURGERY ADD-ON Right 07/14/2019 MICROSURGICAL SURGERY REQUIRING MICROSCOPE LISTED SEPARATELY [facility] MRA HEAD W CONTRAST 12/20/2018 no signficant stenosis, occlusion or aneurysm wtih diomede of armas. modeate midline shift to left unchanged from prior exam. [facility] MRI BRAIN WITH CONTRAST 12/20/2018 stable post surgical changes s/p right frontal craniotomy and resecton. no acute pathology. [facility] QUIROZ SKULL FOR BIOPSY Right 07/14/2019 KENNY HOLE BIOPSY OF BRAIN performed by Pankaj Mejia MD at [facility] RADIATION THERAPY DOSE PLAN,COMPLEX - 30 txs/cranium REMOVAL OF TONSILS, UNDER AGE 13 STEREOTACTIC CRANIAL INTRADURAL NAVIGATION Right 07/14/2019 STEREOTACTIC CRANIAL INTRADURAL NAVIGATION performed by Pankaj Mejia MD at [place] [facility] UPPER GI ENDOSCOPY/EXAM neg test/naveen test neg. [...] Types: Cigarettes Quit date: 03/09/1991 Years since quittin.6 Smokeless tobacco: Never Tobacco comments: no passive [...] list as this cannot be edited in [employer]. Review of Systems: Constitutional ROS: No change [...] diarrhea, or constipation and No dysphagia Skin/Integumentary ROS:see HPI Neurologic ROS: grade 3 astrocytoma, hx of CVA Psychiatric ROS: + depression, No anxiety and No psychosis Sleep: No sleep disorders OBJECTIVE: PHYSICALEXAM: LMP 03/13/2011 I reviewed the most recent facilities vitals. General: alert, no distress, well nourished and well developed Head: post surgical changes chronic Eye Exam: Conjunctiva are pink and non-injected, [...] tenderness, lungs clear to auscultation Abdomen: abdomen soft,mild suprapubic tenderness, normal bowel sounds and no masses or organomegaly Extremities: no edema, no clubbing, no cyanosis Neuro Exam: alert & oriented x 3 with affected speech, unchanged hemiplegia : external genitalia redness and irritation. No open lesions or ulcers ASSESSMENT: Dysuria (Primary) Will obtain urinalysis and C&S if UA is positive Will follow closely Encourage oral fluids Fever, unspecified fever cause Possibly due to UTI Will continue with Tylenol prn Will follow closely Candidal vulvovaginitis Terazol 7 HS times 7 days Grade III astrocytoma (HCC) Stable no new NV findings Continue follow up with neurology and oncology [place] as directed PLAN: Reviewed CBC, BMP, Lytes and Continue present medication(s):as ordered. [facility] Given: as above Electronically signed by: Senait Granados PA-C Over 35 minutes were spent in this visit more than half the time was spent counselling or coordinating care. documented in this encounter Plan of Treatment Upcoming Encounters Date Type Department Care Team (Late st Contact Info) Description 08/04/2024 3:30 PM EDT Telemedicine Hematology Oncology [address] [address] Neida Hurtado MD [address] [place] [address] Health Maintenance Due Date Last Done Comments Depression Monitoring 1973 HIV Screening 1976 Albumin/Creatinine Ratio 09/13/1979 HPV/Co-Test 09/13/1991 Cologuard 2006 Colonoscopy 2006 Colorectal Cancer Screening 2006 Fecal Occult Blood Test 2006 Sigmoidoscopy 2006 Zoster Vaccines (1 of 2) 09/13/2011 DTaP,Tdap,and Td Vaccines (2 - Td or Tdap) 04/25/2018 [...] as of this encounter Visit Diagnoses Diagnosis Dysuria- Primary Fever, unspecified fever cause Candidal vulvovaginitis Candidiasis of vulva and vagina Grade III astrocytoma (HCC) Malignant neoplasm of brain, unspecified site documented in this encounter Advance Directives * [...] and were consensually agreed upon. Care Teams Footwear Stitcher Relationship Specialty Start Date End Date Nina Haile MD [address] [place] [id number] PCP - General Family Medicine 10/25/19 documented as of this encounter
--- OUTSIDE RECORDS SUMMARY | 2024-01-05 13:41 | External Medical Summary | Summary of Care ---
Author Name Unknown Organization [facility] Address [address] [place] [address] Phone [phone] Care Team Providers Care Internal Audit Director Name Role Phone Nina Haile MD Primary Care Provide r Reason for Visit * Reason Onset Date Comments Retirement Visit 11/10/2023 Encounter Details Date Type Department Care Team (Latest Contact Info) Description 11/10/2023 7:00 AM EDT Retirement Visit [facility] [address] [place] [address] Senait Granados PA-C [address] [place] [address] Idiopathic urticaria*; Grade III astrocytoma (HCC); Seizure disorder (HCC) Allergies Active Allergy Reactions Criticality Noted Date Comments Cimetidine 05/29/1999 Hair thinning Cimetidine Unknown 12/19/2020 Erythromycin 09/08/2000 GI side effects Penicillins 05/29/1999 Phenytoin Sodium 05/29/1999 Rash, hives documented as of this encounter (statuses as of 11/10/2023) Medications Medication Sig Dispensed Refills Start Date [...] the morning. 30 Tab 5 11/24/2019 Active [place]-3 Fatty Acids (FISH OIL) 1200 MG CAPS [...] as of this encounter (statuses as of 11/10/2023) Active Problems Problem Noted Date Diagnosed Date [...] scanned into Electronic Medical Record LOC PRIM [id number] 12/03/1999 Esophageal reflux 05/29/1999 Idiopathic urticaria History of peptic ulcer disease Overview: ICD-10 update of inactive term Acquired hypothyroidism documented as of this encounter (statuses as of 11/10/2023) Resolved Problems Problem Noted Date Diagnosed Date [...] as of this encounter (statuses as of 11/10/2023) Immunizations Name Administration Dates Next Due Seasonal [...] Progress Notes * Senait Granados PA-C - 11/10/2023 9:23 AM EDT Name: Janay Kaplan Date of :1960 TRANSITION EVENT: Type: Non-applicable Date: November 09 Code Status: No Code This note pertains to care provided at [facility]. Please see facility medical record for original note. This note is not to be edited or addended in [facility]. Editing or addending needs to occur in the facilities medical record. Subjective: Janay Kaplan is a 63 year old female. Patient being seen for flare of urtcaria Chief Complaint Patient presents with Retirement Visit HPI: pt with chronic idiopathic urticaria having another flare of very itchy hive like lesions erupting along trunk abdomen and extremities over past several days. Pt is on Hydroxyzine TID routinely and Zyrtec routinely. No new soaps, medications, detergents, foods, etc. Vital signs stable. No dyspnea, sore throat, dysphagia, wheezing. Pt has been on oral steroid tapering course in the past whichseems to help for a while. CBC Results: Results for orders placed or [...] SODIUM - [facility] 137 07/15/2019 11:36 AM Patient Active Problem List Diagnosis Esophageal reflux LOC PRIM [id number] Idiopathic urticaria History of peptic ulcer disease [...] LV functon. LVEF 60 to 65%.mild LVH. [facility] CARPAL TUNNEL SURGERY Right 1991 right CHEST 1 VIEW 12/20/2018 pulmonary vascular congesion. trace pleural fluid left base. [facility] CRAN LOBE,NOT TEMPORAL,ELEC Dr [place], [place] right frontal lobectomy/malignant brain tumor CT HEAD/BRAIN WO CONTRAST 12/20/2018 no acute intracranial findings. [facility] CTA NECK W CONTRAST 12/20/2018 no significant occlusion, stenosis or dissection within carotid or vertebral arteries. mild scattered plaque formation. [facility] DILATION AND CURETTAGE (D&C) EKG 12/20/2018 NSR. LVH. no acute changes. [facility] LAPAROSCOPY;WITH BIOPSY times 3 Laparoscopy,w Lisa- Thursday LIGATE/CUT OVIDUCT(S) MAMMOGRAM SCREENING BILATERAL 04/03/2010 cat. 1, repeat in 12mths MAMMOGRAM SCREENING BILATERAL Bilateral 07/04/14 almost entirely fat, category 1 normal MICROSURGERY ADD-ON Right 07/14/2019 MICROSURGICAL SURGERY REQUIRING MICROSCOPE LISTED SEPARATELY performed by Pankaj Mejia, [facility]ane OR [facility] MRA HEAD W CONTRAST 12/20/2018 no signficant stenosis, occlusion or aneurysm wtih [place]. modeate midline shift to left unchanged from prior exam. [facility] MRI BRAIN WITH CONTRAST 12/20/2018 stable post surgical changes s/p right frontal craniotomy and resecton. no acute pathology. [facility] QUIROZ SKULL FOR BIOPSY Right 07/14/2019 KENNY HOLE BIOPSY OF BRAIN performed by Pankaj Mejia MD at OR [facility] RADIATION THERAPY DOSE PLAN,COMPLEX - 30 txs/cranium REMOVAL OF TONSILS, UNDER AGE 12 STEREOTACTIC CRANIAL INTRADURAL NAVIGATION Right 07/14/2019 STEREOTACTIC CRANIAL INTRADURAL NAVIGATION performed by Pankaj Mejia MD at OR [facility] UPPER GI ENDOSCOPY/EXAM neg test/naveen test neg. [...] list as this cannot be edited in [employer]. Review of Systems: Constitutional ROS: No change in weight, No change in weakness, No change in fatigue and No fevers,sweats, or chills Ear ROS: No ear pain, No drainage, No tinnitus or vertigo and No recent change in hearing Nose ROS: No nasal stuffiness and No [...] or constipation and No dysphagia Skin/Integumentary ROS: see HPI Neurologic ROS: ssee PMHx Psychiatric ROS: No depression, No anxiety and No psychosis Sleep: No sleep disorders OBJECTIVE: PHYSICALEXAM: LMP 03/13/2011 I reviewed the most recent facilities vitals. General: alert, no distress, well nourished and well developed Head: post surgical changes scalp Eye Exam: Conjunctiva are pink and non-injected, [...] and no masses or organomegaly Extremities: no joint deformities, effusion, or inflammation, no edema, no clubbing, no cyanosis Neuro Exam: alert with affected speech, left hemiparesis unchanged Skin: skin color, texture, turgor are normal, scattered excoriated wheal and flare lesions trunk abdomen and extremities and back ASSESSMENT: Idiopathic urticaria (Primary) Recurring despite hydroxyzine and Zyrtec Will give Solu Medrol 125mg IM now and begin prednisone oral course Will consult precision farming specialist due to recurrence Grade III astrocytoma (HCC) Stable Continue followup with oncology as directed Seizure disorder (HCC) Stable no active seizure Contnue Carbatrol as directed PLAN: Reviewed CBC, BMP, Lytes and Continue present medication(s):as ordered. [facility] Treatment Given: as directed Electronically signed by: Senait Granados PA-C Over 35 minutes were spent in this visit more than half the time was spent counselling or coordinating care. documented in this encounter Plan of Treatment Upcoming Encounters Date Type Department Care Team (Late st Contact Info) Description 08/04/2024 3:30 PM EDT Telemedicine Hematology Oncology [facility] [address] [place] [phone] Neida Hurtado MD [address] [place] [address] Health Maintenance Due Date Last Done Comments Depression Monitoring 1973 HIV Screening 1976 Albumin/Creatinine Ratio 09/13/1979 HPV/Co-Test 09/13/1991 Cologuard 2006 Colonoscopy 2006 Colorectal Cancer Screening 2006 Fecal Occult Blood Test 2006 Sigmoidoscopy 2006 Zoster Vaccines (1 of 2) 09/13/2011 DTap/Tdap Vaccines (2 - Td or Tdap) 04/25/2018 04/25/2008 Mammogram 01/03/2022 01/03/2021, 04/2 09/2014, 05/28/2011, Additional history exists Influenza Vaccine (FLU [...] as of this encounter Visit Diagnoses Diagnosis Idiopathic urticaria- Primary Grade III astrocytoma (HCC) Malignant neoplasm of [...] and were consensually agreed upon. Care Teams Internal Audit Director Relationship Specialty Start Date End Date Nina Haile MD [address] [place], [place] [address]SANIA [id number] PCP - General Family Medicine 10/25/19 documented as of this encounter
--- OUTSIDE RECORDS SUMMARY | 2024-01-05 13:41 | External Medical Summary | Summary of Care ---
Author Name Unknown Organization [facility] Address [address] [facility] [place] [address] Phone [phone] Care Team Providers Care Feather Maker Name Role Phone Nina Haile MD Primary Care Provide r Reason for Visit * Reason Comments Allergy New Pt Encounter Details Date Type Department Care Team (Late st Contact Info) Description 11/27/2023 9:00 AM EDT Office Visit Allergy/Immunology [facility] [address] [place] [address] Jhon Resendiz MD [address] [place] [address] Chronic urticaria*; Pruritus Allergies Active Allergy Reactions Criticality Noted Date Comments Cimetidine 05/29/1999 Hair thinning Cimetidine Unknown 12/19/2020 Erythromycin 09/08/2000 GI side effects Penicillins 05/29/1999 Phenytoin Sodium 05/29/1999 Rash, hives documented as of this encounter (statuses as of 11/27/2023) Medications Medication Sig Dispensed Refills Start Date [...] as of this encounter (statuses as of 11/27/2023) Active Problems Problem Noted Date Diagnosed Date [...] scanned into Electronic Medical Record LOC PRIM [id number] 12/03/1999 Esophageal reflux 05/29/1999 Idiopathic urticaria History of peptic ulcer disease Overview: ICD-10 update of inactive term Acquired hypothyroidism documented as of this encounter (statuses as of 11/27/2023) Resolved Problems Problem Noted Date Diagnosed Date [...] as of this encounter (statuses as of 11/27/2023) Immunizations Name Administration Dates Next Due Seasonal Influenza, Trivalen t, (IIV3), with Preserv, (Fluzone) 03/01/2014,12/09/2010,11/22/2008, 0 08,01/16/2006 TDAP, Age 7 and older, IM (Adacel) 04/25/2008 documented as of this encounter Social History Tobacco Use Types Packs/Day Years Used Date Smoking Tobacco: Former Cigarettes Q uit: 03/09/1991 Smokeless Tobacco: Never Tobacco Cessation:Counseling Given: Not Answered Comments:no passive smoke exposures Alcohol Use Standard Drinks/Week Comments No 0 [...] on file documented as of this encounter Last Filed Vital Signs Vital Sign Reading Time Taken Comments Blood Pressure 120/60 11/27/2023 9:01 AM EDT Pulse 82 11/27/2023 9:01 AM EDT Temperature 36.6 C (97.9 F) 11/27/2023 9:01 AM ED T Respiratory Rate 16 11/27/2023 9:01 AM EDT Oxygen Saturation - - Inhaled Oxygen Concentration - - Weight - - Height - - Body Mass Index - - documented in this encounter Functional Status Functional Status Response [...] as of this encounter Progress Notes * Jhon Resendiz MD - 11/27/2023 9:07 AM EDT REASON FOR VISIT: Chief Complaint Patient presents with Allergy New Pt HPI: Janay is a 63-year-old female who presents to our office as a new patient after being referred by Nina Haile MD for initial consultation of chronic urticaria. Today the patient is accompanied by her caregiver. The patient was last seen in our office in March of 2019. She was seen for similar issues with chronic spontaneous urticaria. The patient reports that she has been doing fairlywell. However more recently over the course of the last 6-8 months, she states that her urticaria has been flaring up for unclear reasons. Previously, she was well-controlled with Zyrtec twice daily and Zantac twice daily several years ago. Per her shelter orders, she currently is on Zyrtec 10mg once daily in addition to Pepcid 20 mg twice daily. She also takes hydroxyzine 20 mg 4 times perday. She does report slight sedation. She was unsure why her Zyrtec was decreased down to once daily but per her caregiver, the patient had a discussion with her healthcare provider to limit the amount of pills that she takes. She also uses on an unspecified anti-itch cream. Aggravating factors of her urticaria includes heat, sweating, pressure, friction and possibly stress and anxiety. She does report increased stress and anxiety with her sister being recently diagnosedwith Alzheimer's. She reports no recent illnesses. She denies any significant use of NSAIDs. The patient does have a history of hypothyroidism and her last TSH in May of 2023 was within normal limits. REVIEW OF SYSTEMS Skin: itching, hives Eyes: negative Ears/Nose/Throat: negative Respiratory: No history of cough, wheezing, chest tightness or shortness of breath and No history of bronchial asthma Cardiovascular: hyperlipidemia Gastrointestinal: Positive history of acid reflux disease. Genitourinary: negative Musculoskeletal: pt denies significant joint pain or stiffness Neurologic: negative Psychiatric: negative Hematologic/Lymphatic/Immunologic: negative Endocrine: negative Constitutional: none Past Medical History: Diagnosis Date Acquired hypothyroidism [...] LV functon. LVEF 60 to 65%.mild LVH. [facility] CARPAL TUNNEL SURGERY Right 1991 right CHEST 1 VIEW 12/20/2018 pulmonary vascular congesion. trace pleural fluid left base. [facility] CRAN LOBE,NOT TEMPORAL,ELEC Dr [place], [place] right frontal lobectomy/malignant brain tumor CT HEAD/BRAIN WO CONTRAST 12/20/2018 no acute intracranial findings. [facility] CTA NECK W CONTRAST 12/20/2018 no significant occlusion, stenosis or dissection within carotid or vertebral arteries. mild scattered plaque formation. [facility] DILATION AND CURETTAGE (D&C) EKG 12/20/2018 NSR. LVH. no acute changes. [facility] LAPAROSCOPY;WITH BIOPSY times 3 Laparoscopy,w Lisa- Thursday LIGATE/CUT OVIDUCT(S) MAMMOGRAM SCREENING BILATERAL 04/03/2010 cat. 1, repeat in 12mths MAMMOGRAM SCREENING BILATERAL Bilateral 07/04/14 almost entirely fat, category 1 normal MICROSURGERY ADD-ON Right 07/14/2019 MICROSURGICAL SURGERY REQUIRING MICROSCOPE LISTED SEPARATELY performed by Pankaj Mejia, [place] OR [facility] MRA HEAD W CONTRAST 12/20/2018 no signficant stenosis, occlusion or aneurysm wtih [place]. modeate midline shift to left unchanged from prior exam. [facility] MRI BRAIN WITH CONTRAST 12/20/2018 stable post surgical changes s/p right frontal craniotomy and resecton. no acute pathology. [facility] QUIROZ SKULL FOR BIOPSY Right 07/14/2019 KENNY HOLE BIOPSY OF BRAIN performed by Pankaj Mejia MD at OR [facility] RADIATION THERAPY DOSE PLAN,COMPLEX - 30 txs/cranium REMOVAL OF TONSILS, UNDER AGE 12 STEREOTACTIC CRANIAL INTRADURAL NAVIGATION Right 07/14/2019 STEREOTACTIC CRANIAL INTRADURAL NAVIGATION performed by Pankaj Mejia MD at OR [facility] UPPER GI ENDOSCOPY/EXAM neg test/naveen test neg. Current Outpatient Medications Medication Sig Dispense Refill carBAMazepine ER (CARBATROL) 100 MG CP12 Take 2 Capsules by mouth in the morning and 2 Capsules before bedtime. (0900/2100).. 60 Cap 0 linaclotide (LINZESS) 72 MCG CAPS 1 Capsule every night at bedtime. 30 Cap 0 levothyroxine (LEVOXYL) 50 MCG Tablet Take 1 Tablet by mouth daily first thing in the morning. (at least 30 min prior to breakfast or other meds) 30 Tab 0 Multiple Vitamin (MULTI-DAY VITAMINS) Tablet Take 1 Tab by mouth daily. (0900). 30 Tab 0 aspirin enteric coated 81 MG TBEC Take 1 Tablet by mouth in the morning. (0900).. 100 Tab 0 cetirizine (ZYRTEC) 10 MG Tablet One tablet twice daily; every 12 hrs 60 Tab 6 Omeprazole 20 MG Oral Capsule Delayed Release Take 1 Capsule by mouth in the morning. (0630).. 30 Cap 0 Cyanocobalamin (VITAMIN B 12) 500 MCG TABS Take 500 mcg by mouth in the morning. Rosuvastatin Calcium 40 MG Oral Tablet Take 1 Tablet by mouth in the morning. 30 Tab 5 Sennosides-Docusate Sodium 8.6-50 MG Oral Tablet Take 1 Tablet by mouth in the morning and 1 Tabletbefore bedtime. amLODIPine Besylate 5 MG Oral Tablet Take 0.5 Tablets by mouth in the morning. (0900).. 30 Tab 0 Vitamin D3 25 MCG (1000 UT) Oral Tablet (Vitamin D3) Take 1 Tablet by mouth in the morning. Potassium Chloride Sharda ER 20 MEQ Oral Tablet Extended Release Take 1 Tablet by mouth every afternoon. Acetaminophen 500 MG Oral Tablet (Tylenol) Take 1 Tablet by mouth 3 times a day. (0900/1300/1700). Modafinil 200 MG Oral Tablet (Provigil) Take 1 Tablet by mouth in the morning. 30 Tablet 5 Gabapentin 100 MG Oral Capsule (Neurontin) Take 1 Capsule by mouth at bedtime. Mirtazapine 15 MG Oral Tablet (Remeron) Take 1 Tablet by mouth at bedtime. Famotidine 20 MG Oral Tablet (Pepcid) Take 1 Tablet by mouth in the morning and 1 Tablet before bedtime. hydrOXYzine HCl 10 MG/5ML Oral Syrup (Atarax) Take 10 mL by mouth in the morning and 10 mL at noon and 10 mL in the evening and 10 mL before bedtime. Lidocaine 4 % External Patch (Aspercreme) Place 1 Patch topically on the skin daily. Coccyx triamcinolone acetonide (ARISTOCORT) 0.1 % cream Apply to rash on the arms and legs twice daily as needed for flares or itching. 80 g 1 Camphor-Menthol 0.5-0.5 % External Lotion Apply topically to affected area every 2 hours as needed for Itching. 222 mL 0 Emollient (CETAPHIL MOISTURIZING) CREA Apply topically to affected area. Apply from head to toe every day in the morning. Boost Oral Liquid Magnesium Oxide 400 (240 Mg) MG Oral Tablet (Mag-Ox) Take 1 Tablet by mouth in the morning. No current facility-administered medications for this visit. Allergies as of 11/27/2023 - Reviewed 11/27/2023 Allergen Reaction Noted Cimetidine 05/29/1999 Cimetidine Unknown 12/19/2020 Erythromycin 09/08/2000 Penicillins 05/29/1999 Phenytoin sodium 05/29/1999 Family History Problem Relation Name Age of Onset Cancer Father unknown type Hypertension Father Heart Disorder Mother Thyroid Disorder Mother graves disease Thyroid Disorder Sister Breast Cancer No significant family history Colon cancer No significant family history Ovarian cancer No significant family history Social History Socioeconomic History Marital status: Spouse [...] on file Housing Stability: Not on file Social history: As noted above, the patient currently lives in a shelter. She reports no significant changes to her home environment over the course of the last year. She does have her own private room. BP 120/60 | Pulse 82 | Temp 36.6 C (97.9 F) | Resp 16 | LMP 03/13/2011 PHYSICAL EXAM: GENERAL: No acute distress. HEAD AND FACE: No sinus tenderness noted EYES: EOMI, PERRLA; Conjunctiva- normal; Eyelids - normal EARS: TM's - clear NOSE:Pale mucosa; no turbinate edema; no nasal polyps or mucopus; Septum - normal OROPHARYNX: Teeth and gums - normal; Mild erythema, no cobblestoning; No lesions, exudates NECK: Supple; No thyroid enlargment or cervical adenopathy RESPIRATORY: Clear to A and P; No wheezes; Good air movement bilaterally; No intercostal retractions or accessory muscle use CARDIOVASCULAR: RRR; No gallops, rubs, clicks, or murmurs. GASTROINTESTINAL: Abdomen is soft and non-tender; BS - normal; No palpable masses or organomegaly LYMPHATIC: No significant adenopathy noted MUSCULOSKELETAL: No significant joint swelling, tenderness EXTREMITIES: No cyanosis, clubbing or peripheral edema SKIN: few urticarial lesions noted on left forearm, neck, and cheeks NEUROLOGIC/PSYCHIATRIC: Mental status - Oriented x's 3; Mood and affect - normal ASSESSMENT AND PLAN: ICD-10-CM 1. Chronic urticaria L50.8 2. Pruritus L29.9 In summary, Janay carries a diagnosis of chronic spontaneous urticaria with associated pruritus. We did review that chronic spontaneous urticaria is typically not allergy related as often times thought to be an autoimmune process at targets mast cells which then leads to histamine release and subsequent urticaria and itch. We also reviewed aggravating factors of urticaria and this includes scratching, pressure, friction, heat/humidity, exercise/sweating, stress/anxiety, fluctuating hormones, illnesses, and the use of NSAIDs. She does note that scratching, pressure, friction, sweating, and heat may be playing a role in terms of why her urticaria is worse. She also reports increased stress and anxiety due to family health issues throughout the course of this year. For further evaluation and management, we will repeat her TSH with a reflex free T4 given her history of hypothyroidism and being on levothyroxine. No further workup is necessary at the present moment. From a pharmacotherapy standpoint, the patient was already on Pepcid 20 mg twice daily and also takes hydroxyzine 20 mg every 6 hours. For unclear reasons, the patient is on cetirizine 10 mg only once daily so we will increase this to twice daily for further histamine blockade. We reviewed that theoverall goal in terms of treating urticaria is to improve her quality of life and her activities of daily living although we may not be able to fully cure her urticaria in general. Thank you very much for allowing myself to participate in the care of your patient. Please do not hesitate to contact our office should you have any questions or concerns. Jhon Resendiz MD Allergy/Immunology I spent a total of Greater than 55 mins (exact time 58 mins) on the date of service in preparation,delivery, and documentation of the care provided to Janay Kaplan excluding any time spent in the performance of separately billed services or time spent by another provider/QHP. (This note was completed using the dictation program Fluency Direct. As such, there may be misspellings, word substitutions, or other variations that should not change the essence of the clinical content of this encounter note.If there is need for further clarification, please direct questions to the provider listed above.) PCP: NINA HAILE [address] [place] [id number] [phone] documented in this encounter Nursing Notes * Shahana Ghosh LPN - 11/27/2023 9:01 AM EDT The pt has been properly identified by confirmation of name and date of . Pt presents for hives. documented in this encounter Plan of Treatment Upcoming Encounters Date Type Department Care Team (Late st Contact Info) Description 05/26/2024 1:30 PM EDT Office Visit Allergy/Immunology [facility] [address] [place] [address] Jhon Resendiz MD [address] [place] [address] 08/04/2024 3:30 PM EDT Telemedicine Hematology Oncology [facility] [address] [place] [address] Neida Hurtado MD [address], [place] [id number] Scheduled Orders Name Type Priority Associated Diagnoses Orde r Schedule TSH WITH FREE T4 IF INDICATED Lab Routine Chronic urticaria Pruritus Expected: 11/27/2023, Expires: 11/26/2024 Health Maintenance Due Date Last Done Comments [...] Diagnosis Chronic urticaria- Primary Other specified urticaria Pruritus Unspecified pruritic disorder documented in this encounter Advance Directives * [...] and were consensually agreed upon. Care Teams Feather Maker Relationship Specialty Start Date End Date [facility] [address] [facility] [address] PCP - General Family Medicine 10/25/19 documented as of this encounter"
--- OUTSIDE RECORDS SUMMARY | 2024-01-05 13:41 | External Medical Summary | Summary of Care ---
Author Name Unknown Organization [facility] Address [address] [place] [address] Phone [phone] Care Team Providers Care Ultrasound Supervisor Name Role Phone Nina Haile MD Primary Care Provide r Reason for Visit * Reason Onset Date Comments Usp Visit 11/25/2023 Regulatory Encounter Details Date Type Department Care Team (Latest Contact Info) Description 11/25/2023 10:30 AM EDT Usp Visit [address] [place] [address] Nina Haile MD [address] [place] [address] [place] [address] Grade III astrocytoma (HCC)*; Left hemiparesis (HCC); Moderate episode of recurrent major depressive disorder (HCC); Idiopathic urticaria; Gastroesophageal reflux disease without esophagitis; History of peptic ulcer disease; Subdural hygroma; Seizure disorder (HCC); Acquired cerebral atrophy (HCC) Allergies Active Allergy Reactions Criticality Noted Date Comments Cimetidine 05/29/1999 Hair thinning Cimetidine Unknown 12/19/2020 Erythromycin 09/08/2000 GI side effects Penicillins 05/29/1999 Phenytoin Sodium 05/29/1999 Rash, hives documented as of this encounter (statuses as of 11/25/2023) Medications Medication Sig Dispensed Refills Start Date End Date Status carBAMazepine ER (CARBATROL) 100 MG CP12 Take 2 Capsules by mouth in the morning and 2 Capsules before bedtime. (09/2100).. 60 Cap 05/31/2018 Active linaclotide (LINZESS) 72 [...] 05/31/2018 Active triamcinolone acetonide (ARISTOCORT) 0.1 % creamIndications :Dermatitis Apply to rash on the arms and [...] the morning. 30 Tab 5 11/24/2019 Active Sennosides-Docus ate Sodium 8.6-50 MG Oral Tablet Take 1 [...] Tablet by mouth 3 times a day. (0900/1300/1700 ). 12/29/2022 Active Modafinil 200 MG Oral Tablet [...] % External Patch (Aspercreme) Place 1 Patch over 12 hours topically on the skin daily. Coccyx 11/25/2023 Active [place]-3 Fatty Acids (FISH OIL) 1200 MG CAPS Take 1 Capsule by mouth in the morning. 30 Cap 11/25/2023 Discontinued documented as of this encounter (statuses as of 11/25/2023) Active Problems Problem Noted Date Diagnosed Date [...] scanned into Electronic Medical Record LOC PRIM [id number] 12/03/1999 Esophageal reflux 05/29/1999 Idiopathic urticaria History of peptic ulcer disease Overview: ICD-10 update of inactive term Acquired hypothyroidism documented as of this encounter (statuses as of 11/25/2023) Resolved Problems Problem Noted Date Diagnosed Date [...] as of this encounter (statuses as of 11/25/2023) Immunizations Name Administration Dates Next Due Seasonal [...] as of this encounter Progress Notes * Nina Haile MD - 11/25/2023 3:08 PM EDT Regulatory Visit TRANSITION EVENT: Type: Regulatory visit Date: November 24 Code Status: No Code Name: Janay Kaplan Date of : 1960 This note pertains to care provided at [facility]. Please see facility medical record for original note. This note is not to be edited or addended in [facility]. Editing or addending needs to occur in the facilities medical record. S: Janay Kaplan seen today as part of a regulatory visit. Has history of : Patient Active Problem List Diagnosis Esophageal reflux LOC PRIM [id number] Idiopathic urticaria History of peptic ulcer disease [...] LV functon. LVEF 60 to 65%.mild LVH. [facility] CARPAL TUNNEL SURGERY Right 1991 right CHEST 1 VIEW 12/20/2018 pulmonary vascular congesion. trace pleural fluid left base. [facility] CRAN LOBE,NOT TEMPORAL,ELEC Dr [place], [place] right frontal lobectomy/malignant brain tumor CT HEAD/BRAIN WO CONTRAST 12/20/2018 no acute intracranial findings. [facility] CTA NECK W CONTRAST 12/20/2018 no significant occlusion, stenosis or dissection within carotid or vertebral arteries. mild scattered plaque formation. [facility] DILATION AND CURETTAGE (D&C) EKG 12/20/2018 NSR. LVH. no acute changes. [facility] LAPAROSCOPY;WITH BIOPSY times 3 Laparoscopy,w Bx- Thursday LIGATE/CUT OVIDUCT(S) MAMMOGRAM SCREENING BILATERAL 04/03/2010 cat. 1, repeat in 12mths MAMMOGRAM SCREENING BILATERAL Bilateral 07/04/14 almost entirely fat, category 1 normal MICROSURGERY ADD-ON Right 07/14/2019 MICROSURGICAL SURGERY REQUIRING MICROSCOPE LISTED [facility]AT[facility] [place] [facility] 12/20/2018 no signficant stenosis, occlusion or aneurysm wtih [place]. modeate midline shift to left unchanged from prior exam. [facility] MRI BRAIN WITH CONTRAST 12/20/2018 stable post surgical changes s/p right frontal craniotomy and resecton. no acute pathology. [facility] QUIROZ SKULL FOR BIOPSY Right 07/14/2019 KENNY HOLE BIOPSY OF BRAIN performed [place] Pankaj Mejia [place] [facility] [place]IATION THERAPY DOSE PLAN,COMPLEX - 30 txs/cranium REMOVAL OF TONSILS, UNDER AGE 13 STEREOTACTIC CRANIAL INTRADURAL NAVIGATION Right 07/14/2019 STEREOTACTIC CRANIAL INTRADURAL NAVIGATION performed by Pankaj Mejia MD [place] [facility] [place] GI ENDOSCOPY/EXAM neg test/naveen test neg. [...] side effects Penicillins Phenytoin Sodium Rash, hives She is now having acute problem(s). Current problems include recurrent urticaria and itching of unknown etiology. Has seen dermatology. Is on cetirizine and hydroxyzine routinely. Has responded to steroids in the past but the urticaria then come back. Is scheduled to see allergy on 11/27/23. Has nothad any lip swelling or wheezing. Is not having pain issues. Is not having behavioral problems. Results for orders placed or performed in visit on 09/25/23 CARBAMAZEPINE LEVEL Result Value Ref Range carBAMazepine Level 6.7 4.0 - 12.0 ug/mL *Note: Due to a large number of results and/or encounters for the requested time period, some results have not been displayed. A complete set of results can be found in Results Review. CBC Results: Results for orders placed or [...] K/uL MPV 10.6 6.6 - 11.1 fL Basic Panel Results: Results for orders placed or performed in visit on 05/20/23 BASIC METABOLIC PANEL Result Value Ref Range BUN 12 6 - 20 mg/dL CREATININE 0.6 0.5 - 1.0 mg/dL EGFR >90 >=60 mL/min SODIUM 146 135 - 146 mmol/L POTASSIUM 4.0 3.5 - 5.1 mmol/L CHLORIDE 112 (H) 98 - 107 mmol/L CO2 26 22 - 32 mmol/L ANION GAP 8 7 - 15 mmol/L GLUCOSE 103 70 - 120 mg/dL CALCIUM 8.8 8.4 - 10.2 mg/dL Lipid Panel Results: Results for orders placed or performed in visit on 03/22/21 LIPID PANEL WITHOUT DIRECT LDL Result Value Ref Range Triglycerides 224 (H) <=174 mg/dL Cholesterol 175 <200 mg/dL HDL Cholesterol 32 (L) >49 mg/dL Non-HDL Cholesterol 143 <=159 mg/dL LDL Cholesterol 98 <=129 mg/dL Results for orders placed or performed in visit on 05/20/23 LIPID PANEL WITH DIRECT LDL IF TG IS HIGH Result Value Ref Range Triglycerides 250 (H) <=174 mg/dL Cholesterol 183 <200 mg/dL HDL Cholesterol 36 (L) >49 mg/dL Non-HDL Cholesterol 147 <=159 mg/dL ROS: CONSTITUTIONAL: No change in weight and No fevers, sweats, or chills. +generalized weakness and chronic fatigue EYE: No recent significant change in vision and No eye pain, redness, discharge EARS: No ear pain, No drainage, No tinnitus or vertigo, and No recent change in hearing NOSE: No history of frequent colds or sinusitis, No nasal stuffiness, and No significant epistaxis MOUTH: No bleeding gums, No thrush, or No sore throat PULMONARY: No cough, sputum, or hemoptysis, No wheezing, No shortness of breath, and No recent change in breathing CARDIOVASCULAR: No chest pain, No shortness of breath, No orthopnea, No paroxysmal nocturnal dyspnea, No edema, No palpitations, and No syncope GASTROINTESTINAL: No abdominal pain, No change in bowel habits, No significant change in appetite, No nausea, vomiting, diarrhea, or constipation, No hematemesis, No blood in stools or black tarry stools, and No abdominal bloating or early satiety. +heartburn FEMALE: No dysuria, No frequency, and +incontinent of bowel and bladder EXTREMITIES: +OA SKIN/INTEGUMENTARY: +as per HPI NEUROLOGIC: +seizure disorder, h/o astrocytoma, +left hemiplegia r/t brain surgery PSYCHIATRIC: +depression O: I reviewed the most recent facilities vitals. General: alert, no distress, well nourished, well developed, and chronically ill appearing Head: +scarring of scalp with alopecia of most of right side of scalp Neuro: alert & oriented x 3 with fluent speech, +left hemiparesis Eye Exam: PERRLA, extraocular movements intact, conjunctiva are pink and non- injected, sclera clear Ears: External ears normal Nose: no mucosal erythema, no mucosal edema, no purulent discharge Oropharynx: no exudate, no erythema, lips, buccal mucosa, and tongue normal, and mucous membranes are moist Heart: regular rate & rhythm, no murmur, and no gallops Lungs: chest symmetric with normal AP diameter, no chest deformities noted, no chest wall tenderness, lungs clear to auscultation Abdomen: abdomen soft, non-tender, normal bowel sounds, and no masses or organomegaly Extremities: no edema, no clubbing Skin: +scattered patches of small erythematous wheals over head, neck, trunk, and extremities diffusely A: 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 Follows with neurology and neurosurgery. Left hemiparesis (HCC)--stable. Requires LTC. Moderate episode of recurrent major depressive disorder (HCC)--continue mirtazapine 15 mg daily. Idiopathic urticaria--continue cetirizine 10 mg daily and hydroxyzine 20 mg QID. Keep follow-up with allergy as scheduled. Add famotidine 20 mg twice daily. Has seen dermatology. Unclear etiology. Gastroesophageal reflux disease without esophagitis--continue omeprazole 20 mg daily and add famotidine as above. Patient does note worsening heartburn. History of peptic ulcer disease--as above Subdural hygroma--stable Seizure disorder (HCC)--continue carbamazepine ER 200 mg twice daily Acquired cerebral atrophy (HCC)--stable P: Medications reviewed. Please refer to MAR in the facility's medical record for the most up-to-date medication list. Continue present medication(s): and Begin medication(s): famotidine 20 mg twice daily due to chronic urticaria. Scheduled to see allergy 11/27/23. Reviewed shelter record for: vital signs, weight, bowel, and bladder function, and ADLs. Labs reviewed Continue current treatment plan as ordered Continue to follow up as needed and as scheduled [facility] Home Treatment Given: n/a Electronically signed by: Nina Haile MD I spent a total of 33 minutes coordinating, documenting, and providing care for this patient excluding time spent in the performance of separately billed services or time spent by another provider/QHP. documented in this encounter Plan of Treatment Upcoming Encounters Date Type Department Care Team (Late st Contact Info) Description 11/27/2023 9:00 AM EDT Office Visit Allergy/Immunology State Suellen Alvarado [address] [place] [id number] Jhon Resendiz MD [address] [place] [address] [address] 08/04/2024 3:30 PM EDT Telemedicine Hematology Oncology [facility] [address] [place] [address] Neida Hurtado MD [address] [place] [address] Health Maintenance Due Date Last [...] Cancer Screening 02/06/2024 Pap Smear 02/06/2024 02/05/2021, 03/09/2011, 03/11/2010, Additional history exists TSH 05/19/2024 05/20/2023, [...] as of this encounter Visit Diagnoses Diagnosis Grade III astrocytoma (HCC)- Primary Malignant neoplasm of brain, unspecified site Left hemiparesis (HCC) Hemiplegia, unspecified, affecting unspecified side Moderate episode of recurrent major depressive disorder (HCC) Idiopathic urticaria Gastroesophageal reflux disease without esophagitis Esophageal reflux History of peptic ulcer disease Personal history of peptic ulcer disease Subdural hygroma Subdural hemorrhage Seizure disorder (HCC) Unspecified epilepsy without mention of intractable epilepsy Acquired cerebral atrophy (HCC) documented in this encounter Advance Directives * [...] and were consensually agreed upon. Care Teams Ultrasound Supervisor Relationship Specialty Start Date End Date Nina Haile MD [address] [place] [address] PCP - General Family Medicine 10/25/19 documented as of this encounter
--- OUTSIDE RECORDS SUMMARY | 2024-01-05 13:41 | External Medical Summary | Summary of Care ---
Author Name Unknown Organization [facility] Address [address] [place] [address] Phone [phone] Care Team Providers Care Turnaround Planner Name Role Phone Nina Haile MD Primary Care Provide r Reason for Visit * Reason Onset Date Comments Senior Care Visit 11/16/2023 Encounter Details Date Type Department Care Team (Latest Contact Info) Description 11/16/2023 6:00 AM EDT Senior Care Visit [facility] [address] [place] [address] Senait Granados PA-C [address] [place] [address] Urticaria, chronic*; Grade III astrocytoma (HCC); Left hemiparesis (HCC) Allergies Active Allergy Reactions Criticality Noted Date Comments Cimetidine 05/29/1999 Hair thinning Cimetidine Unknown 12/19/2020 Erythromycin 09/08/2000 GI side effects Penicillins 05/29/1999 Phenytoin Sodium 05/29/1999 Rash, hives documented as of this encounter (statuses as of 11/16/2023) Medications Medication Sig Dispensed Refills Start Date End Date Status carBAMazepine ER (CARBATROL) 100 MG CP12 Take 2 Capsules by mouth in the morning and 2 Capsules before bedtime. ().. 60 Cap 05/31/2018 Active linaclotide (LINZESS) 72 [...] the morning. 30 Tab 5 11/24/2019 Active [place]-3 Fatty Acids (FISH OIL) 1200 MG CAPS [...] as of this encounter (statuses as of 11/16/2023) Active Problems Problem Noted Date Diagnosed Date DDD (degenerative disc disease), lumbosacral Hypernatremia 09/03/2022 Acquired cerebral atrophy 09/03/2022 Adult failure to thrive 09/03/2022 At high risk for aspiration 06/09/2022 Full code status 02/11/2022 Excessive sleepiness 03/21/2021 Seizure disorder 11/13/2020 Grade III astrocytoma 07/25/2019 History of eknny hole surgery 07/18/2019 Brain lesion 07/17/2019 Moderate [...] scanned into Electronic Medical Record LOC PRIM [id number] 12/03/1999 Esophageal reflux 05/29/1999 Idiopathic urticaria History of peptic ulcer disease Overview: ICD-10 update of inactive term Acquired hypothyroidism documented as of this encounter (statuses as of 11/16/2023) Resolved Problems Problem Noted Date Diagnosed Date [...] as of this encounter (statuses as of 11/16/2023) Immunizations Name Administration Dates Next Due Seasonal [...] Progress Notes * Senait Granados PA-C - 11/16/2023 10:38 AM EDT Janay Kaplan is a 63 year old female patient. No diagnosis found. Past Medical History: Diagnosis Date Acquired hypothyroidism [...] localized osteoarthrosis, lower leg Subdural hygroma 05/31/2018 Last menstrual period 03/13/2011. Senait Granados PA-C 11/16/2023 Name: Janay Kaplan Date of :1960 TRANSITION EVENT: Type: Non-applicable Date: November 15 Code Status: No Code This note pertains to care provided at [facility]. Please see facility medical record for original note. This note is not to be edited or addended in [facility]. Editing or addending needs to occur in the facilities medical record. Subjective: Janay Kaplan is a 63 year old female. Patient being seen for recheck urticaria Chief Complaint Patient presents with Senior Care Visit HPI: urticaria persisting and very itching. Pt completed oral prednisone course which did help calmthe urticaria. She also required IM Solu Medrol. She is currently on Zyrtec 10mg daily, Sarna lotion prn and Atarax 20mg QID routinely. No sore throat, dysphagia, dyspnea, wheezing, chills, fever. Vital signs remain stable. Pt has allergy consult pending appt. CBC Results: Results for orders placed or [...] POTASSIUM - [facility] 4.0 07/15/2019 11:36 AM Patient Active Problem List Diagnosis Esophageal reflux LOC PRIM [id number] Idiopathic urticaria History of peptic ulcer disease [...] LV [place]. LVEF 60 to 65%.mild LVH. [facility] CARPAL TUNNEL SURGERY Right 1991 right CHEST 1 VIEW 12/20/2018 pulmonary vascular congesion. trace pleural fluid left base. [facility] CRAN LOBE,NOT TEMPORAL,ELEC Dr [place], [place] right frontal lobectomy/malignant brain tumor CT HEAD/BRAIN WO CONTRAST 12/20/2018 no acute intracranial findings. [facility] CTA NECK W CONTRAST 12/20/2018 no significant occlusion, stenosis or dissection within carotid or vertebral arteries. mild scattered plaque formation. [facility] DILATION AND CURETTAGE (D&C) EKG 12/20/2018 NSR. LVH. no acute changes. [facility] LAPAROSCOPY;WITH BIOPSY times 3 Laparoscopy,w Bx- Thursday LIGATE/CUT OVIDUCT(S) MAMMOGRAM SCREENING BILATERAL 04/03/2010 cat. 1, repeat in 12mths MAMMOGRAM SCREENING BILATERAL Bilateral 07/04/14 almost entirely fat, category 1 normal MICROSURGERY ADD-ON Right 07/14/2019 MICROSURGICAL SURGERY REQUIRING MICROSCOPE LISTED SEPARATELY [facility] [place] 12/20/2018 no signficant stenosis, occlusion or aneurysm wtih [place]. modeate midline shift to left unchanged from prior exam. [facility] MRI BRAIN WITH CONTRAST 12/20/2018 stable post surgical changes s/p right frontal craniotomy and resecton. no acute pathology. [facility] QUIROZ SKULL FOR BIOPSY Right 07/14/2019 KENNY HOLE BIOPSY OF BRAIN performed by Pankaj Mejia MD [place] [facility] [place] RADIATION THERAPY DOSE PLAN,COMPLEX - 30 txs/cranium REMOVAL OF TONSILS, UNDER AGE 13 STEREOTACTIC CRANIAL INTRADURAL NAVIGATION Right 07/14/2019 STEREOTACTIC CRANIAL INTRADURAL NAVIGATION performed by Pankaj Mejia MD [place] [facility] [place]OSCOPY/EXAM neg test/naveen [...] list as this cannot be edited in [employer]. Review of Systems: Constitutional ROS: No change in weight, No weakness, No fatigue and No fevers, sweats, or chills Nose ROS: No nasal stuffiness [...] dysphagia Skin/Integumentary ROS: see HPI Neurologic ROS: s/p CVA with left hemiparesis. Grade 3 astrocytoma Psychiatric ROS: No depression, No anxiety and No psychosis Sleep: No sleep disorders OBJECTIVE: PHYSICALEXAM: LMP 03/13/2011 I reviewed the most recent facilities vitals. General: alert, no distress, well nourished and well developed Head: post surgical deformities scalp Eye Exam: Conjunctiva are pink and non-injected, sclera clear Ears: External ears normal Nose: [...] no cyanosis Neuro Exam: alert with affected speech,left hemiparesis unchanged Skin: skin color, texture, turgor are normal, continued urticaria trunk, extremities abdomen with excoriations ASSESSMENT: Urticaria, chronic (Primary) Will need to resume Prednisone 40mg daily times 5 days Continue Zyrtec daily, Hydroxyzine QID and Sarna prn Awaiting allergy consult Grade III astrocytoma (HCC) Stable NV findings Follows with oncology as directed Left hemiparesis (HCC) No new NV findings Continue present medications and dosages. PLAN: Reviewed CBC, BMP, Lytes and Continue present medication(s):as ordered. [facility] Home Treatment Given: as above Electronically signed by: Senait Granados PA-C Over 35 minutes were spent in this visit more than half the time was spent counselling or coordinating care. documented in this encounter Plan of Treatment Upcoming Encounters Date Type Department Care Team (Late st Contact Info) Description 08/04/2024 3:30 PM EDT Telemedicine Hematology Oncology [address] [address] Neida Hurtado MD [address] [place] [address] Health Maintenance Due Date Last Done Comments [...] as of this encounter Visit Diagnoses Diagnosis Urticaria, chronic- Primary Other specified urticaria Grade III astrocytoma [...] and were consensually agreed upon. Care Teams Turnaround Planner Relationship Specialty Start Date End Date iNna Haile MD [address] [place] [address] [place] [address] PCP - General Family Medicine 10/25/19 documented as of this encounter
--- OUTSIDE RECORDS SUMMARY | 2024-01-05 13:41 | External Medical Summary | Summary of Care ---
Author Name Unknown Organization [facility] Address [address] [facility] [place] [address] Phone [phone] Care Team Providers Care Airbrush Artist Photography Name Role Phone Nina Haile MD Primary Care Provide r Encounter Details Date Type Department Care Team (Late st Contact Info) Description 10/17/2023 Result Scan Unspecified Department Nina Haile MD [address] [place] [address] [place] [address] <No scans attached> Allergies Active Allergy Reactions Criticality Noted Date Comments Cimetidine 05/29/1999 Hair thinning Cimetidine Unknown 12/19/2020 Erythromycin 09/08/2000 GI side effects Penicillins 05/29/1999 Phenytoin Sodium 05/29/1999 Rash, hives documented as of this encounter (statuses as of 10/20/2023) Medications Medication Sig Dispensed Refills Start Date [...] the morning. 30 Tab 5 11/24/2019 Active [place]-3 Fatty Acids (FISH OIL) 1200 MG CAPS [...] as of this encounter (statuses as of 10/20/2023) Active Problems Problem Noted Date Diagnosed Date [...] scanned into Electronic Medical Record LOC PRIM [id number] 12/03/1999 Esophageal reflux 05/29/1999 Idiopathic urticaria History of peptic ulcer disease Overview: ICD-10 update of inactive term Acquired hypothyroidism documented as of this encounter (statuses as of 10/20/2023) Resolved Problems Problem Noted Date Diagnosed Date [...] as of this encounter (statuses as of 10/20/2023) Immunizations Name Administration Dates Next Due Seasonal [...] 08/04/2024 3:30 PM EDT Telemedicine Hematology Oncology [facility] [address] [place] [address] Neida Hurtado MD [address] [place] [address], [place] [id number] Health Maintenance Due Date Last Done Comments [...] Not on filedocumented as of this encounter Procedures Procedure Name Priority Date/Time Associated Diagnosis Comments OUTSIDE LAB RESULTS 10/17/2023 documented in this encounter Results * OUTSIDE LAB RESULTS (10/17/2023) 10/17/2023 Nina Haile MD LABORATORY documented in this encounter Advance Directives * [...] and were consensually agreed upon. Care Teams Airbrush Artist Photography Relationship Specialty Start Date End Date Nina Haile MD [address] [place] [address] [place] [address] PCP - General Family Medicine 10/25/19 documented as of this encounter
--- OUTSIDE RECORDS SUMMARY | 2024-01-05 13:41 | External Medical Summary | Summary of Care ---
Author Name Unknown Organization [facility] Address [address] [facility] [place] [address] Phone [phone] Care Team Providers Care Curatorial Assistant Name Role Phone Nina Haile MD Primary Care Provide r Reason for Visit * Reason Onset Date Comments Group Home Visit 10/20/2023 Encounter Details Date Type Department Care Team (Latest Contact Info) Description 10/20/2023 11:00 AM EDT Group Home Visit [address] [place] [address] Nina Haile MD [address] [place] [address] [place] [id number] Candidal vulvovaginitis*; Dysuria; Idiopathic urticaria; Acquired cerebral atrophy (HCC); Grade III astrocytoma (HCC); Left hemiparesis (HCC) [...] the morning. 30 Tab 5 11/24/2019 Active [place]-3 Fatty Acids (FISH OIL) 1200 MG CAPS [...] scanned into Electronic Medical Record LOC PRIM [id number] 12/03/1999 Esophageal reflux 05/29/1999 Idiopathic urticaria History [...] Progress Notes * Nina Haile MD - 10/20/2023 12:14 PM EDT Name: Janay Kaplan Date of :1960 TRANSITION EVENT: Type: Non-applicable Date: October 19 Code Status: No Code This note pertains to care provided at [facility]. Please see facility medical record for original note. This note is not to be edited or addended in [employer]. Editing or addending needs to occur in the facilities medical record. Subjective: Janay Kaplan is a 63 year old female. Patient being seen for follow-up of dysuria/urine cultureresults Chief Complaint Patient presents with Group Home Visit HPI: Brief Clinical History Ms. Kaplan is a 63 year old female last seen in [facility] on 10/14/2023 by Senait Granados She has a h/o the following chronic conditions indicated on the problem list: Chronic Conditions Full code status Grade III astrocytoma (HCC) Left hemiparesis (HCC) Moderate episode of recurrent major depressive disorder (HCC) Asked to see patient for follow-up of urine culture results. Patient was seen 10/14/23 for c/o dysuria, mildly elevated temperature of 99.9 and external vaginal and perineal redness and irritation. Patient had recently finished a prolonged course of prednisone for idiopathic urticaria. She was started on terconazole vaginal cream x 7 days on 10/14/23. Due to the temperature and c/o dysuria, UA, C& S was obtained. The culture was sent on 10/18/23 and has returned as multiple mixed gram negative and positive organisms, probable contaminants and no sensitivity was done. Patient states the itching of her bottom is better now. She states the dysuria she was having is almost now completely resolved. No further temperature elevation. She denies cough, congestion, or urinary frequency or urgency. Patient Active Problem List Diagnosis Esophageal reflux LOC PRIM [id number] Idiopathic urticaria History of peptic ulcer disease [...] LV functon. LVEF 60 to 65%.mild LVH. [facility] CARPAL TUNNEL SURGERY Right 1991 right CHEST 1 VIEW 12/20/2018 pulmonary vascular congesion. trace pleural fluid left base. [facility] CRAN LOBE,NOT TEMPORAL,[place] right frontal lobectomy/malignant brain tumor CT HEAD/BRAIN WO CONTRAST 12/20/2018 no acute intracranial findings. [facility] CTA NECK W CONTRAST 12/20/2018 no significant occlusion, stenosis or dissection within carotid or vertebral arteries. mild scattered plaque formation. [facility] DILATION AND CURETTAGE (D&C) EKG 12/20/2018 NSR. LVH. no acute changes. [facility] LAPAROSCOPY;WITH BIOPSY times 3 Laparoscopy,w Lisa- Thursday LIGATE/CUT OVIDUCT(S) MAMMOGRAM SCREENING BILATERAL 04/03/2010 cat. 1, repeat in 12mths MAMMOGRAM SCREENING BILATERAL Bilateral 07/04/14 almost entirely fat, category 1 normal MICROSURGERY ADD-ON Right 07/14/2019 MICROSURGICAL SURGERY REQUIRING MICROSCOPE LISTED SEPARATELY performed [place] Zane Holgu[place] [facility] 12/20/2018 no signficant stenosis, occlusion or aneurysm wtih [place]. modeate midline shift to left unchanged from prior exam. [facility] MRI BRAIN WITH CONTRAST 12/20/2018 stable post surgical changes s/p right frontal craniotomy and resecton. no acute pathology. [facility] QUIROZ SKULL FOR BIOPSY Right 07/14/2019 KENNY HOLE BIOPSY OF BRAIN performed by Pankaj Mejia MD [place] [facility] [place] RADIATION THERAPY DOSE PLAN,COMPLEX - 30 txs/cranium REMOVAL OF TONSILS, UNDER AGE 12 STEREOTACTIC CRANIAL INTRADURAL NAVIGATION Right 07/14/2019 STEREOTACTIC CRANIAL INTRADURAL NAVIGATION performed by Pankaj Mjeia MD [place] [facility] [place] UPPER GI ENDOSCOPY/EXAM neg test/naveen test neg. [...] list as this cannot be edited in [employer]. Review of Systems: Constitutional ROS: No change in weight, +generalized weakness, No fatigue and No fevers, sweats, or chills Eye ROS: No recent significant change in vision, No eye pain, redness, discharge and No diplopia Ear ROS: No ear pain, No drainage, No tinnitus or vertigo and No recent change in hearing Nose ROS: No nasal stuffiness and No significant epistaxis Mouth/Throat ROS: No thrush or No sore throat Pulmonary ROS: No cough, sputum, or hemoptysis, No wheezing, No shortness of breath and No recent change in breathing Cardiovascular ROS: No chest pain, No shortness of breath, No edema, No palpitations and No syncope Gastrointestinal ROS: No abdominal pain, No change in bowel habits, No significant change in appetite, No nausea, vomiting, diarrhea, or constipation Musculoskeletal/Extremities ROS: No pain, redness or swelling on the joints Skin/Integumentary ROS: +as per HPI Neurologic ROS: +seizure disorder, +h/o astrocytoma resection, chronic subdural hygroma Psychiatric ROS: +depression, Sleep: +excessive somnolence OBJECTIVE: PHYSICALEXAM: LMP 03/13/2011 I reviewed the most recent facilities vitals. General: alert, no distress, well nourished and well developed Head: Normocephalic, No masses, lesions, tenderness or abnormalities Eye Exam: Conjunctiva are pink and non-injected, [...] chest wall tenderness, lungs clear to auscultation Pulses: radial=2/4 Abdomen: abdomen soft, non-tender, normal bowel sounds and no masses or organomegaly Extremities: no edema, no clubbing, no cyanosis Neuro Exam: alert & oriented x 3 with slow speech speech, +chronic left hemiparesis Skin: skin color, texture, turgor are normal, no rashes or significant lesions ASSESSMENT: Candidal vulvovaginitis (Primary) Dysuria--resolved with antifungal treatment Idiopathic urticaria--continue Zyrtec. Recently completed prednisone. Acquired cerebral atrophy (HCC) Grade III astrocytoma (HCC) Left hemiparesis (HCC) PLAN: Complete course of terazosin for candidal vulvovaginitis, which was causing her dysuria as well. NoUTI presently, Continue present medication(s):as ordered., and Follow up as needed. [facility] Treatment Given: n/a Electronically signed by: Nina Haile MD Over 21 minutes were spent in this visit more than half the time was spent counselling or coordinating care. documented in this encounter Plan of Treatment Upcoming Encounters Date Type Department Care Team (Late st Contact Info) Description 08/04/2024 3:30 PM EDT Telemedicine Hematology Oncology [facility] [address] [place] [address] Neida Hurtado MD [address] [place] [address] Health Maintenance Due Date Last Done Comments Depression Monitoring 1973 HIV Screening 1976 Albumin/Creatinine Ratio 09/13/1979 HPV/Co-Test 09/13/1991 Cologuard 2006 Colonoscopy 2006 Colorectal Cancer Screening 2006 Fecal Occult Blood Test 2006 Sigmoidoscopy 2006 Zoster Vaccines (1 of 2) 09/13/2011 DTaP,Tdap,and Td Vaccines (2 - Td or Tdap) 04/25/2018 04/25/2008 Mammogram 01/03/2022 01/03/2021, 06/08 09/2014, 05/28/2011, Additional history exists Influenza Vaccine [...] as of this encounter Visit Diagnoses Diagnosis Candidal vulvovaginitis- Primary Candidiasis of vulva and vagina Dysuria Idiopathic urticaria Acquired cerebral atrophy (HCC) Grade III astrocytoma (HCC) Malignant neoplasm of [...] and were consensually agreed upon. Care Teams Curatorial Assistant Relationship Specialty Start Date End Date Nina Haile MD [address] [facility] [place] [address] PCP - General Family Medicine 10/25/19 documented as of this encounter
--- OUTSIDE RECORDS SUMMARY | 2024-01-05 13:41 | External Medical Summary | Summary of Care ---
Author Name Unknown Organization [facility] Address [address] [place] [facility] [place] [address] Phone [phone] Care Team Providers Care Poke In Name Role Phone Nina Haile MD Primary Care Provide r Reason for Visit * Reason Onset Date Comments Group Home Visit 10/07/2023 Encounter Details Date Type Department Care Team (Latest Contact Info) Description 10/07/2023 8:30 AM EDT Group Home Visit [facility] [address] [place] [address] Senait Granados PA-C [address] [place] [address] Rectal itching*; Acquired cerebral atrophy (HCC); Grade III astrocytoma (HCC) Allergies Active Allergy Reactions Criticality Noted Date Comments Cimetidine 05/29/1999 Hair thinning Cimetidine Unknown 12/19/2020 Erythromycin 09/08/2000 GI side effects Penicillins 05/29/1999 Phenytoin Sodium 05/29/1999 Rash, hives documented as of this encounter (statuses as of 10/07/2023) Medications Medication Sig Dispensed Refills Start Date [...] the morning. 30 Tab 5 11/24/2019 Active [place]-3 Fatty Acids (FISH OIL) 1200 MG CAPS [...] as of this encounter (statuses as of 10/07/2023) Active Problems Problem Noted Date Diagnosed Date [...] scanned into Electronic Medical Record LOC PRIM [id number] 12/03/1999 Esophageal reflux 05/29/1999 Idiopathic urticaria History of peptic ulcer disease Overview: ICD-10 update of inactive term Acquired hypothyroidism documented as of this encounter (statuses as of 10/07/2023) Resolved Problems Problem Noted Date Diagnosed Date [...] as of this encounter (statuses as of 10/07/2023) Immunizations Name Administration Dates Next Due Seasonal [...] Progress Notes * Senait Granados PA-C - 10/07/2023 2:48 PM EDT Name: Janay Kaplan Date of :1960 TRANSITION EVENT: Type: Non-applicable Date: October 06 Code Status: No Code This note pertains to care provided at [facility]. Please see facility medical record for original note. This note is not to be edited or addended in [employer]. Editing or addending needs to occur in the facilities medical record. Subjective: Janay Kaplan is a 63 year old female. Patient being seen for complaints of rectal itching Chief Complaint Patient presents with Group Home Visit HPI: I was asked to assess pt for complaints of rectal itching. Pt stated to State Music Teacher who waspresent today that she has been having itching in her buttocks area. When I questioned pt about this she stated that she has been having itching in her rectal area which she called "poop shoot" for about a week. States it's not getting worse since this time and not constant. No pain with BM's. No rectal bleeding. Pt is incontinent of urine and stool due to CVA and grade three astrocytoma. When I asked pt if she informed the staff of this, she responded "no, I don't think so". Pt is currently receiving Theracalazinc ointment to buttocks for skin protection. She is receiving routine bathing/show ering by staff. No new soaps, detergents, foods, medications, etc. Pt is afebrile. CBC Results: Results for orders placed or [...] Problem List Diagnosis Esophageal reflux LOC PRIM [id number] Idiopathic urticaria History of peptic ulcer disease [...] LV functon. LVEF 60 to 65%.mild LVH. [facility] CARPAL TUNNEL SURGERY Right 1991 right CHEST 1 VIEW 12/20/2018 pulmonary vascular congesion. trace pleural fluid left base. [facility] CRAN LOBE,NOT TEMPORAL,ELEC Dr [place], [place] right frontal lobectomy/malignant brain tumor CT HEAD/BRAIN WO CONTRAST 12/20/2018 no acute intracranial findings. [facility] CTA NECK W CONTRAST 12/20/2018 no significant occlusion, stenosis or dissection within carotid or vertebral arteries. mild scattered plaque formation. [facility] DILATION AND CURETTAGE (D&C) EKG 12/20/2018 NSR. LVH. no acute changes. [facility] LAPAROSCOPY;WITH BIOPSY times 3 Laparoscopy,w Bx- Thursday LIGATE/CUT OVIDUCT(S) MAMMOGRAM SCREENING BILATERAL 04/03/2010 cat. 1, repeat in 12mths MAMMOGRAM SCREENING BILATERAL Bilateral 07/04/14 almost entirely fat, category 1 normal MICROSURGERY ADD-ON Right 07/14/2019 MICROSURGICAL SURGERY REQUIRING MICROSCOPE LISTED SEPARAT[facility] [place] MRA HEAD W CONTRAST 12/20/2018 no signficant stenosis, occlusion or aneurysm wtih [place]. modeate midline shift to left unchanged from prior exam. [facility] MRI BRAIN WITH CONTRAST 12/20/2018 stable post surgical changes s/p right frontal craniotomy and resecton. no acute pathology. [facility] QUIROZ SKULL FOR BIOPSY Right 07/14/2019 KENNY HOLE BIOPSY OF BRAIN performed by Pankaj Mejia MD at [place] [facility] [place] RADIATION THERAPY DOSE PLAN,COMPLEX - 30 txs/cranium REMOVAL OF TONSILS, UNDER AGE 12 STEREOTACTIC CRANIAL INTRADURAL NAVIGATION Right 07/14/2019 STEREOTACTIC CRANIAL INTRADURAL NAVIGATION performed by Pankaj Mejia MD at [place] [facility] [place] UPPER GI ENDOSCOPY/EXAM neg test/naveen test [...] list as this cannot be edited in [employer]. Review of Systems: Constitutional ROS: No change [...] dysphagia Skin/Integumentary ROS: see HPI Neurologic ROS: No headaches and s/p CVA and grade III astrocytoma Psychiatric ROS: No depression, No anxiety and No psychosis Sleep: No sleep disorders OBJECTIVE: PHYSICALEXAM: LMP 03/13/2011 I reviewed the most recent facilities vitals. General: alert, no distress, well nourished and well developed Head: post surgical skull deformity unchanged Eye Exam: Conjunctiva are pink and non-injected, sclera clear Oropharynx: no exudate, no erythema, lips, buccal [...] cyanosis Neuro Exam: alert with affected speech, right hemiparesis unchanged,. Rectal: skin normal on buttocks with no open areas or rash or erythema. Rectal area evaluated and no irritation or redness or open area noted. ASSESSMENT: Rectal itching (Primary) I can see no rash or evidence of rectal skin infection Will begin Hydrocortisone cream 2.5% TID times 10 days to area Will follow closely Instructed pt to inform staff if above is not responding to treatment Acquired cerebral atrophy (HCC) Stable No change in mood or mentation Grade III astrocytoma (HCC) Follows with oncology /neurology in [facility] PLAN: Reviewed CBC BMP, Lytes and Continue present medication(s):as ordered. [facility] Home Treatment Given: as above Electronically signed by: Senait Granados PA-C Over 35 minutes were spent in this visit more than half the time was spent counselling or coordinating care. documented in this encounter Plan of Treatment Upcoming Encounters Date Type Department Care Team (Late st Contact Info) Description 08/04/2024 3:30 PM EDT Telemedicine Hematology Oncology [facility] [address] [place] [address] Neida Hurtado MD [address] [place] [address] Health Maintenance Due Date Last [...] as of this encounter Visit Diagnoses Diagnosis Rectal itching- Primary Pruritus ani Acquired cerebral atrophy (HCC) Grade III astrocytoma [...] and were consensually agreed upon. Care Teams Poke In Relationship Specialty Start Date End Date Nina Haile MD [address] [place], [place] [address] [address] PCP - General Family Medicine 10/25/19 documented as of this encounter
--- OUTSIDE RECORDS SUMMARY | 2024-01-05 13:42 | External Medical Summary | Summary of Care ---
Author Name Unknown Organization [facility] Address [address] [place] [address] Phone [phone] Care Team Providers Care Construction Code Administrator Name Role Phone Nina Haile MD Primary Care Provide r Reason for Visit * Reason Onset Date Comments Prison Visit 09/09/2023 Encounter Details Date Type Department Care Team (Latest Contact Info) Description 09/09/2023 8:30 AM EDT Prison Visit [facility] [address] [place] [address] Senait Granados PA-C [address] [place], [place] [id number] Idiopathic urticaria*; Grade III astrocytoma (HCC); Left hemiparesis (HCC) Allergies Active Allergy Reactions Criticality Noted Date Comments Cimetidine 05/29/1999 Hair thinning Cimetidine Unknown 12/19/2020 Erythromycin 09/08/2000 GI side effects Penicillins 05/29/1999 Phenytoin Sodium 05/29/1999 Rash, hives documented as of this encounter (statuses as of 09/09/2023) Medications Medication Sig Dispensed Refills Start Date [...] the morning. 30 Tab 5 11/24/2019 Active [place]-3 Fatty Acids (FISH OIL) 1200 MG CAPS [...] as of this encounter (statuses as of 09/09/2023) Active Problems Problem Noted Date Diagnosed Date [...] scanned into Electronic Medical Record LOC PRIM [id number] 12/03/1999 Esophageal reflux 05/29/1999 Idiopathic urticaria History of peptic ulcer disease Overview: ICD-10 update of inactive term Acquired hypothyroidism documented as of this encounter (statuses as of 09/09/2023) Resolved Problems Problem Noted Date Diagnosed Date [...] as of this encounter (statuses as of 09/09/2023) Immunizations Name Administration Dates Next Due Seasonal [...] Progress Notes * Senait Granados PA-C - 09/09/2023 10:58 AM EDT Name: Janay Kaplan Date of :1960 TRANSITION EVENT: Type: Non-applicable Date: September 08 Code Status: No Code This note pertains to care provided at [facility]. Please see facility medical record for original note. This note is not to be edited or addended in Onzo. Editing or addending needs to occur in the facilities medical record. Subjective: Janay Kaplan is a 62 year old female. Patient being seen for recheck on exacerbation of urticaria. Chief Complaint Patient presents with Prison Visit HPI: Pt was assessed a week or so ago for excacerbation of urticaria noted on face, trunk, extremities. No new soaps, foods, detergents. No chills or fever. Pt is on routine Zyrtec daily. Pt was treated last week with tapering of oral Prednisone and Sarna lotion. No dysphagia, sore throat or wheezing associated. Pt's urticaria are now completely resolved. She is afebrile. She states "I feel great". Vital signs stable. CBC Results: Results for orders placed [...] Problem List Diagnosis Esophageal reflux LOC PRIM [id number] Idiopathic urticaria History of peptic ulcer disease [...] LV functon. LVEF 60 to 65%.mild LVH. [facility] CARPAL TUNNEL SURGERY Right 1991 right CHEST 1 VIEW 12/20/2018 pulmonary vascular congesion. trace pleural fluid left base. [facility] CRAN LOBE,NOT TEMPORAL,ELEC Dr [place], [place] right frontal lobectomy/malignant brain tumor CT HEAD/BRAIN WO CONTRAST 12/20/2018 no acute intracranial findings. [facility] CTA NECK W CONTRAST 12/20/2018 no significant occlusion, stenosis or dissection within carotid or vertebral arteries. mild scattered plaque formation. [facility] DILATION AND CURETTAGE (D&C) EKG 12/20/2018 NSR. LVH. no acute changes. [facility] LAPAROSCOPY;WITH BIOPSY times 3 Laparoscopy,w Lisa- Thursday LIGATE/CUT OVIDUCT(S) MAMMOGRAM SCREENING BILATERAL 04/03/2010 cat. 1, repeat in 12mths MAMMOGRAM SCREENING BILATERAL Bilateral 07/04/14 almost entirely fat, category 1 normal MICROSURGERY ADD-ON Right 07/14/2019 MICROSURGICAL SURGERY REQUIRING MICROSCOPE LISTED SEPARATELY performed by Pankaj Mejia, [place] [facility] [place]AST 12/20/2018 no signficant stenosis, occlusion or aneurysm wtih [place]. modeate midline shift to left unchanged from prior exam. [facility] MRI BRAIN WITH CONTRAST 12/20/2018 stable post surgical changes s/p right frontal craniotomy and resecton. no acute pathology. [facility] QUIROZ SKULL FOR BIOPSY Right 07/14/2019 KENNY [...] Types: Cigarettes Quit date: 03/09/1991 Years since quittin.5 Smokeless tobacco: Never Tobacco comments: no passive [...] list as this cannot be edited in [employer]. Review of Systems: Constitutional ROS: No change [...] ROS: see HPI Neurologic ROS: s/p CVA Psychiatric ROS: No depression, No anxiety and No psychosis Sleep: No sleep disorders OBJECTIVE: PHYSICALEXAM: I reviewed the most recent facilities vitals. [...] clubbing, no cyanosis Neuro Exam: alert with unchanged speech, left hemiplegia unchanged Skin: skin color, texture, turgor are normal, no urticaria present now ASSESSMENT: Idiopathic urticaria (Primary) Totally resolved now Complete prednisone course Continue Zyrtec daily Will follow Grade III astrocytoma (HCC) Stable Continue with followup by oncology as directed Left hemiparesis (HCC) Stable no new NV findings Continue ASA 81mg daily PLAN: Reviewed CBC, BMP, Lytes and Continue present medication(s):as ordered. [facility] Given: as directed Electronically signed by: Senait Granados PA-C Over 35 minutes were spent in this visit more than half the time was spent counselling or coordinating care. documented in this encounter Plan of Treatment Upcoming Encounters Date Type Department Care Team (Late st Contact Info) Description 08/04/2024 3:30 PM EDT Telemedicine Hematology Oncology [facility] [address] [place] [address] Neida Hurtado MD [address] [place] [address] Health Maintenance Due Date Last Done Comments Depression Monitoring 1973 HIV Screening 1976 Albumin/Creatinine Ratio 09/13/1979 HPV/Co-Test 09/13/1991 Cologuard 2006 Colonoscopy 2006 Colorectal Cancer Screening 2006 Fecal Occult Blood Test 2006 Sigmoidoscopy 2006 Zoster Vaccines (1 of 2) 09/13/2011 DTaP,Tdap,and Td Vaccines (2 - Td or Tdap) 04/25/2018 04/25/2008 Mammogram 01/03/2022 01/03/2021, 04/09/2014, 05/28/2011, Additional history exists Influenza Vaccine (FLU [...] and were consensually agreed upon. Care Teams Construction Code Administrator Relationship Specialty Start Date End Date Nina Haile MD [address] [place] [address] [place] [id number] PCP - General Family Medicine 10/25/19 documented as of this encounter
--- OUTSIDE RECORDS SUMMARY | 2024-01-05 13:42 | External Medical Summary | Summary of Care ---
Author Name Unknown Organization [facility] Address [address] [place] [address] Phone [phone] Care Team Providers Care Metal Roaster Name Role Phone Nina Haile MD Primary Care Provide r Reason for Visit * Reason Onset Date Comments Senior Living Visit 09/22/2023 Regulatory Encounter Details Date Type Department Care Team (Latest Contact Info) Description 09/22/2023 11:00 AM EDT Senior Living Visit [facility] [address] [place] [address] Senait Granados PA-C [address], [place] [phone] Grade III astrocytoma (HCC)*; Subdural hygroma; Seizure disorder (HCC); Idiopathic urticaria; Left hemiparesis (HCC); Acquired hypothyroidism; Dyslipidemia, goal LDL below 130 Allergies Active Allergy Reactions Criticality Noted Date Comments Cimetidine 05/29/1999 Hair thinning Cimetidine Unknown 12/19/2020 Erythromycin 09/08/2000 GI side effects Penicillins 05/29/1999 Phenytoin Sodium 05/29/1999 Rash, hives documented as of this encounter (statuses as of 09/22/2023) Medications Medication Sig Dispensed Refills Start Date [...] the morning. 30 Tab 5 11/24/2019 Active [place]-3 Fatty Acids (FISH OIL) 1200 MG CAPS [...] as of this encounter (statuses as of 09/22/2023) Active Problems Problem Noted Date Diagnosed Date [...] scanned into Electronic Medical Record LOC PRIM [id number] 12/03/1999 Esophageal reflux 05/29/1999 Idiopathic urticaria History of peptic ulcer disease Overview: ICD-10 update of inactive term Acquired hypothyroidism documented as of this encounter (statuses as of 09/22/2023) Resolved Problems Problem Noted Date Diagnosed Date [...] as of this encounter (statuses as of 09/22/2023) Immunizations Name Administration Dates Next Due Seasonal [...] [facility] ([facility]] [address] [place] [address] Neida Hurtado MD [address] [place] [address] Health Maintenance Due Date Last Done Comments [...] Primary Malignant neoplasm of brain, unspecified site Subdural hygroma Subdural hemorrhage Seizure disorder (HCC) Unspecified epilepsy without mention of intractable epilepsy Idiopathic urticaria Left hemiparesis (HCC) Hemiplegia, unspecified, affecting unspecified side Acquired hypothyroidism Unspecified hypothyroidism Dyslipidemia, goal LDL below 130 Other and unspecified hyperlipidemia documented in this encounter Advance Directives * [...] and were consensually agreed upon. Care Teams Metal Roaster Relationship Specialty Start Date End Date Nina Haile MD [address] [place] [address] [place] [address] PCP - General Family Medicine 10/25/19 documented as of this encounter
--- OUTSIDE RECORDS SUMMARY | 2024-01-05 13:42 | External Medical Summary | Summary of Care ---
Author Name Unknown Organization [facility] Address [address] [place] [address] Phone [phone] Care Team Providers Care Wind Turbine Controls Engineer Name Role Phone Nina Haile MD Primary Care Provide r Reason for Visit * Reason Onset Date Comments [facility] Visit 09/15/2023 Encounter Details Date Type Department Care Team (Latest Contact Info) Description 09/15/2023 9:30 AM EDT [facility] Visit [facility] [address] [place] [address] Senait Granados PA-C [address], [place] [phone] Recurrent urticaria*; Grade III astrocytoma (HCC); Acquired hypothyroidism Allergies Active Allergy Reactions Criticality Noted Date Comments Cimetidine 05/29/1999 Hair thinning Cimetidine Unknown 12/19/2020 Erythromycin 09/08/2000 GI side effects Penicillins 05/29/1999 Phenytoin Sodium 05/29/1999 Rash, hives documented as of this encounter (statuses as of 09/15/2023) Medications Medication Sig Dispensed Refills Start Date [...] the morning. 30 Tab 5 11/24/2019 Active [place]-3 Fatty Acids (FISH OIL) 1200 MG CAPS [...] as of this encounter (statuses as of 09/15/2023) Active Problems Problem Noted Date Diagnosed Date [...] scanned into Electronic Medical Record LOC PRIM [id number] 12/03/1999 Esophageal reflux 05/29/1999 Idiopathic urticaria History of peptic ulcer disease Overview: remote/1980's ICD-10 update of inactive term Acquired hypothyroidism documented as of this encounter (statuses as of 09/15/2023) Resolved Problems Problem Noted Date Diagnosed Date [...] as of this encounter (statuses as of 09/15/2023) Immunizations Name Administration Dates Next Due Seasonal [...] Progress Notes * Senait Granados PA-C - 09/15/2023 1:28 PM EDT Name: Janay Kaplan Date of :1960 TRANSITION EVENT: Type: Non-applicable Date: September 14 Code Status: No Code This note pertains to care provided at [facility]. Please see facility medical record for original note. This note is not to be edited or addended in [employer]. Editing or addending needs to occur in the facilities medical record. Subjective: Janay Kaplan is a 63 year old female. Patient being seen for recurring urticaria Chief Complaint Patient presents with [facility] Visit HPI: Pt was assessed two weeks ago for urticaria due to unknown cause. Pt's last flare of urticariawas several years ago. She has been on Zyrtec daily since. Pt's urticaria flare was treated with Solu Medrol IM and oral prednisone taper with complete resolution. No dysphagia, dyspnea, throat closure or pain. Vital signs stable. Pt noted this morning that she is experiencing flare of urticaria on left arm. Very itchy. No new soaps, medications, foods, soaps. Vital signs stable. No dyspnea, wheezing, throat closure CBC Results: Results for orders placed or [...] Problem List Diagnosis Esophageal reflux LOC PRIM [id number] Idiopathic urticaria History of peptic ulcer disease [...] LV functon. LVEF 60 to 65%.mild LVH. [facility] CARPAL TUNNEL SURGERY Right 1991 right CHEST 1 VIEW 12/20/2018 pulmonary vascular congesion. trace pleural fluid left base. [facility] CRAN LOBE,NOT TEMPORAL,[place] right frontal lobectomy/malignant brain tumor CT HEAD/BRAIN WO CONTRAST 12/20/2018 no acute intracranial findings. [facility] CTA NECK W CONTRAST 12/20/2018 no significant occlusion, stenosis or dissection within carotid or vertebral arteries. mild scattered plaque formation. [facility] DILATION AND CURETTAGE (D&C) EKG 12/20/2018 NSR. LVH. no acute changes. [facility] LAPAROSCOPY;WITH BIOPSY times 3 Laparoscopy,w Bx- Thursday LIGATE/CUT OVIDUCT(S) MAMMOGRAM SCREENING BILATERAL 04/03/2010 cat. 1, repeat in 12mths MAMMOGRAM SCREENING BILATERAL Bilateral 07/04/14 almost entirely fat, category 1 normal MICROSURGERY ADD-ON Right 07/14/2019 MICROSURGICAL SURGERY REQUIRING MICROSCOPE LISTED SEPARATELY performed by Zane Holguin OR [facility] MRA HEAD W CONTRAST 12/20/2018 no signficant stenosis, occlusion or aneurysm wtih chalkyitsik of armas. modeate midline shift to left unchanged from prior exam. [facility] MRI BRAIN WITH CONTRAST 12/20/2018 stable post surgical changes s/p right frontal craniotomy and resecton. no acute pathology. [facility] QUIROZ SKULL FOR BIOPSY Right 07/14/2019 KENNY HOLE BIOPSY OF BRAIN performed by Pankaj Mejia MD at OR [facility] RADIATION THERAPY DOSE PLAN,COMPLEX - 30 txs/cranium REMOVAL OF TONSILS, UNDER AGE 12 STEREOTACTIC CRANIAL INTRADURAL NAVIGATION Right 07/14/2019 STEREOTACTIC CRANIAL INTRADURAL NAVIGATION performed by Pankaj Mejia MD at OR [facility] UPPER GI ENDOSCOPY/EXAM neg [...] list as this cannot be edited in [email or web address]. Review of Systems: Constitutional ROS: No change [...] see HPI Neurologic ROS: No headaches and + seizures s/p CVA Psychiatric ROS: + depression, No anxiety [...] sounds and no masses or organomegaly Extremities: , no edema, no clubbing, no cyanosis Neuro Exam: alert & oriented x 3 with affected speech, no change in hemiplegia Skin: skin color, texture, turgor are normal, scattered urticaria beginning LUE ASSESSMENT: Recurrent urticaria (Primary) Will begin prednisone taper again 40mg daily times 4 days, then 20mg daily times 4 days, the 10mg daily times 4 days then 5mg daily times 4 days If urticaria return, will need allergy testing Grade III astrocytoma (HCC) Stable Continue to follow with oncology Acquired hypothyroidism Therapeutic Continue Levoxyl daily PLAN: Reviewed CBC, BMP, Lytes and Continue present medication(s):as ordered. Fdc Home Treatment Given: as above Electronically signed by: Senait Granados PA-C Over 35 minutes were spent in this visit more than half the time was spent counselling or coordinating care. documented in this encounter Plan of Treatment Upcoming Encounters Date Type Department Care Team (Late st Contact Info) Description 08/04/2024 3:30 PM EDT Telemedicine Hematology Oncology [facility] [address] [place] [address] Neida Hurtado MD [address] [place] [address] Health Maintenance Due Date Last [...] 02/05/2021, 09/2011, 03/11/2010, Additional history exists TSH 05/19/2024 [...] as of this encounter Visit Diagnoses Diagnosis Recurrent urticaria- Primary Other specified urticaria Grade III astrocytoma (HCC) Malignant neoplasm of brain, unspecified site Acquired hypothyroidism Unspecified hypothyroidism documented in this encounter Advance [...] and were consensually agreed upon. Care Teams Wind Turbine Controls Engineer Relationship Specialty Start Date End Date Nina Haile MD [address] [place] [id number] PCP - General Family Medicine 10/25/19 documented as of this encounter
--- OUTSIDE RECORDS SUMMARY | 2024-01-05 13:42 | External Medical Summary | Summary of Care ---
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 30 Tab 5 11/24/2019 Active [place]-3 Fatty Acids (FISH OIL) 1200 MG CAPS [...] as of this encounter (statuses as of 09/24/2023) Active Problems Problem Noted Date Diagnosed Date [...] scanned into Electronic Medical Record LOC PRIM [id number] 12/03/1999 Esophageal reflux 05/29/1999 Idiopathic urticaria History of peptic ulcer disease Overview: ICD-10 update of inactive term Acquired hypothyroidism documented as of this encounter (statuses as of 09/24/2023) Resolved Problems Problem Noted Date Diagnosed Date [...] as of this encounter (statuses as of 09/24/2023) Immunizations Name Administration Dates Next Due Seasonal [...] Care Team (Late st Contact Info) Description 09/25/2023 5:10 AM EDT Laboratory Lab Mobile Phlebotomy [facility] [address] [facility] [employer] [place] [address] [facility], [address] [place] [id number] 08/04/2024 3:30 PM EDT Telemedicine Hematology Oncology [facility] [address] [place] [address] Neida Hurtado MD [address] [place], [place] [phone] Scheduled Orders Name Type Priority Associated Diagnoses Orde r Schedule CARBAMAZEPINE LEVEL Lab Routine Seizure disorder (HCC) Expected: 09/25/2023, Expires: 09/23/2024 Health Maintenance Due Date Last Done Comments [...] as of this encounter Visit Diagnoses Diagnosis Seizure disorder, simple partial, 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 Care Teams Security Infrastructure Engineer Relationship Specialty Start Date End Date Nina Haile MD [address] [place] [address] [place] [address] PCP - General Family Medicine 10/25/19 documented as of this encounter
--- OUTSIDE RECORDS SUMMARY | 2024-01-05 13:43 | External Medical Summary | Summary of Care ---
Author Name Unknown Organization [facility] Address [address] [facility] [place] [address] Phone [phone] Care Team Providers Care Appointment Clerk Name Role Phone Nina Haile MD Primary Care Provide r Reason for Visit * Reason Onset Date Comments Detention Visit 07/24/2023 Regulatory Encounter Details Date Type Department Care Team (Latest Contact Info) Description 07/24/2023 10:30 AM EDT Detention Visit [address] [place] [address] Nina Haile MD [address] [place] [address] [place] [address] Grade III astrocytoma (HCC)*; Left hemiparesis (HCC); Moderate episode of recurrent major depressive disorder (HCC); Gastroesophageal reflux disease without esophagitis; Idiopathic urticaria; HTN, goal below 140/90; Dyslipidemia, goal LDL below 130; Acquired hypothyroidism; Subdural hygroma; Seizure disorder (HCC); Acquired cerebral atrophy (HCC); Excessive sleepiness Allergies Active Allergy Reactions Criticality Noted Date Comments Cimetidine 05/29/1999 Hair thinning Cimetidine Unknown 12/19/2020 Erythromycin 09/08/2000 GI side effects Penicillins 05/29/1999 Phenytoin Sodium 05/29/1999 Rash, hives documented as of this encounter (statuses as of 07/24/2023) Medications Medication Sig Dispensed Refills Start Date End Date Status carBAMazepine ER (CARBATROL) 100 MG CP12 Take 2 Capsules by mouth in the morning and 2 Capsules before bedtime. (0900/2100).. 60 Cap 0 05/31/2018 Active linaclotide (LINZESS) 72 MCG CAPS 1 Capsule every night at bedtime. 30 Cap 0 05/31/2018 Active levothyroxine (LEVOXYL) 50 MCG Tablet Take 1 Tablet by mouth daily first thing in the morning. (at least 30 min prior to breakfast or other meds) 30 Tab 0 05/31/2018 Active Multiple Vitamin (MULTI-DAY VITAMINS) Tablet Take 1 Tab by mouth daily. (0900). 30 Tab 0 05/31/2018 Active triamcinolone acetonide (ARISTOCORT) 0.1 % creamIndications:Ross matitis Apply to rash on the arms and legs twice daily as needed for flares or itching. 80 g 1 12/06/2018 Active aspirin enteric coated 81 MG TBEC Take 1 Tablet by mouth in the morning. (0900).. 100 Tab 0 12/23/2018 Active Camphor-Menthol 0.5-0.5 % External Lotion Apply topically to affected area every 2 hours as needed for Itching. 222 mL 0 Active Emollient (CETAPHIL MOISTURIZING) CREA Apply topically to affected area. Apply from head to toe every day in the morning. 0 Active cetirizine (ZYRTEC) 10 MG Tablet One tablet twice daily; every 12 hrs 60 Tab 6 02/15/2019 Active Omeprazole 20 MG Oral Capsule Delayed Release Take 1 Capsule by mouth in the morning. (0630).. 30 Cap 0 04/19/2019 Active Cyanocobalamin (VITAMIN B 12) 500 MCG TABS Take 500 mcg by mouth in the morning. 0 Active Rosuvastatin Calcium 40 MG Oral Tablet Take 1 Tablet by mouth in the morning. 30 Tab 5 11/24/2019 Active Dougherty-3 Fatty Acids (FISH OIL) 1200 MG CAPS Take 1 Capsule by mouth in the morning. 30 Cap 0 Active Sennosides-Docusate Sodium 8.6-50 MG Oral Tablet Take 1 Tablet by mouth in the morning and 1 Tablet before bedtime. 0 03/14/2020 Active amLODIPine Besylate 5 MG Oral Tablet Take 0.5 Tablets by mouth in the morning. (0900).. 30 Tab 0 06/28/2020 Active Boost Oral Liquid 0 11/14/2021 Active Magnesium Oxide 400 (240 Mg) MG Oral Tablet (Mag-Ox) Take 1 Tablet by mouth in the morning. 0 07/28/2022 Active Vitamin D3 25 MCG (1000 UT) Oral Tablet (Vitamin D3) Take 1 Tablet by mouth in the morning. 0 11/19/2022 Active Potassium Chloride Sharda ER 20 MEQ Oral Tablet Extended Release Take 1 Tablet by mouth every afternoon. 0 12/03/2022 Active Acetaminophen 500 MG Oral Tablet (Tylenol) Take 1 Tablet by mouth 3 times a day. (0900/1300/1700). 0 12/29/2022 Active Modafinil 200 MG Oral Tablet (Provigil) Take 1 Tablet by mouth in the morning. 30 Tablet 5 04/24/2023 Active Gabapentin 100 MG Oral Capsule (Neurontin) Take 1 Capsule by mouth at bedtime. 0 06/10/2023 Active Mirtazapine 15 MG Oral Tablet (Remeron) Take 1 Tablet by mouth at bedtime. 0 07/16/2023 Active documented as of this encounter (statuses as of 07/24/2023) Active Problems Problem Noted Date Diagnosed Date [...] scanned into Electronic Medical Record LOC PRIM [id number] 12/03/1999 Esophageal reflux 05/29/1999 Idiopathic urticaria History of peptic ulcer disease Overview: ICD-10 update of inactive term Acquired hypothyroidism documented as of this encounter (statuses as of 07/24/2023) Resolved Problems Problem Noted Date Diagnosed Date [...] as of this encounter (statuses as of 07/24/2023) Immunizations Name Administration Dates Next Due Seasonal Influenza, Split, I IV3, With Preserve, Inj 03/01/2014,12/09/2010,11/22/2008, 0 08,01/16/2006 TDAP (age 11 and older)(Adacel) 04/25/2008 documented as of this encounter Social History Tobacco Use Types Packs/Day Years Used Date Smoking Tobacco: Former Cigarettes Q uit: 03/09/1991 Smokeless Tobacco: Never Comments:no passive smoke ex posures Alcohol Use Standard Drinks/Week Comments No 0 (1 standard drink = 0.6 oz pur e alcohol) Sex and Gender Information Value Date Recorded [...] Progress Notes * Nina Haile MD - 07/24/2023 3:43 PM EDT Regulatory Visit TRANSITION EVENT: Type: Regulatory visit Date: July 23 Code Status: No Code Name: Janay Kaplan Date of : 1960 This note pertains to care provided at [facility]. Please see facility medical record for original note. This note is not to be edited or addended in [employer]. Editing or addending needs to occur in the facilities medical record. S: Janay Kaplan seen today as part of a regulatory visit. Has history of : Patient Active Problem List Diagnosis Code Esophageal reflux K21.9 LOC PRIM [id number] M17.10 Idiopathic urticaria L50.1 History of peptic ulcer disease Z87.11 ADVANCE DIRECTIVE INFORMATION HTN, goal below 140/90 I10 Dyslipidemia, goal LDL below 130 E78.5 Acquired hypothyroidism E03.9 Left hemiparesis (HCC) G81.94 Subdural hygroma G96.08 Benign paroxysmal vertigo of both ears H81.13 Chronic urticaria L50.8 Moderate episode of recurrent major depressive disorder (HCC) F33.1 Brain lesion G93.9 History of kenny hole surgery Z98.890 Grade III astrocytoma (HCC) C71.9 Seizure disorder (HCC) G40.909 Excessive sleepiness G47.10 Full code status Z78.9 At high risk for aspiration Z91.89 Hypernatremia E87.0 Acquired cerebral atrophy (HCC) G31.9 Adult failure to thrive R62.7 DDD (degenerative disc disease), lumbosacral M51.37 Past Medical History: Diagnosis Date Acquired hypothyroidism [...] LV functon. LVEF 60 to 65%.mild LVH. [facility] CARPAL TUNNEL SURGERY Right 1991 right CHEST 1 VIEW 12/20/2018 pulmonary vascular congesion. trace pleural fluid left base. [facility] CRAN LOBE,NOT TEMPORAL,ELEC Dr [place], [place] right frontal lobectomy/malignant brain tumor CT HEAD/BRAIN WO CONTRAST 12/20/2018 no acute intracranial findings. [facility] CTA NECK W CONTRAST 12/20/2018 no significant occlusion, stenosis or dissection within carotid or vertebral arteries. mild scattered plaque formation. [facility] DILATION AND CURETTAGE (D&C) EKG 12/20/2018 NSR. LVH. no acute changes. [facility] LAPAROSCOPY;WITH BIOPSY times 3 Laparoscopy,w Bx- Thursday LIGATE/CUT OVIDUCT(S) MAMMOGRAM SCREENING BILATERAL 04/03/2010 cat. 1, repeat in 12mths MAMMOGRAM SCREENING BILATERAL Bilateral 07/04/14 almost entirely fat, category 1 normal MICROSURGERY ADD-ON Right 07/14/2019 MICROSURGICAL SURGERY REQUIRING MICROSCOPE LISTED SEPARATELY performed by Pankaj Mejia, [place] [facility] MRA HEAD W CONTRAST 12/20/2018 no signficant stenosis, occlusion or aneurysm wtih tanana of armas. modeate midline shift to left unchanged from prior exam. [facility] MRI BRAIN WITH CONTRAST 12/20/2018 stable post surgical changes s/p right frontal craniotomy and resecton. no acute pathology. [facility] QUIROZ SKULL FOR BIOPSY Right 07/14/2019 KENNY HOLE BIOPSY OF BRAIN performed by Pankaj Mejia MD at OR [facility] RADIATION THERAPY DOSE PLAN,COMPLEX - 30 txs/cranium REMOVAL OF TONSILS, UNDER AGE 13 STEREOTACTIC CRANIAL INTRADURAL NAVIGATION Right 07/14/2019 STEREOTACTIC CRANIAL INTRADURAL NAVIGATION performed by Pankaj Mejia MD at OR [facility] UPPER GI ENDOSCOPY/EXAM neg test/naveen test neg. Family History Problem Relation Age of Onset Cancer Father unknown type [...] Types: Cigarettes Quit date: 03/09/1991 Years since quittin.3 Smokeless tobacco: Never Tobacco comments: no passive [...] on file Transportation Needs: Not on file Physical Activity: Not on file Stress: Not on file Social Connections: Not on file Intimate Partner Violence: Not on file Housing Stability: Not on file Review of patient's allergies indicates: Allergen Reactions Cimetidine Hair thinning Cimetidine Unknown Erythromycin GI side effects Penicillins Phenytoin Sodium Rash, hives She is now not having any current problems. Patient seen 06/29 and 07/05 for low back/coccyx pain. X-rays negative. Started on Lidocaine patch. Treated with prednisone for dermatitis on 07/13/23 and had negative LUE doppler for left hand swelling. Seen 07/16/23 for weight gain but noted that she has beeneating much better and has been more alert. Is on mirtazapine for depression and low appetite and appears to be working well. No edema or shortness of breath. Is now eating 40-100% of meals. Scheduled for follow-up MRI of the brain 07/30/23 for astrocytoma. Is having pain issues. Pain being treated with Lidocaine patch and acetaminophen Is not having behavioral problems. Results for orders placed or performed in visit on 06/08/23 CBC Result Value Ref Range WBC 3.71 (L) 4.00 - 10.80 K/uL RBC 3.81 3.85 - 5.15 M/uL HGB 12.5 12.0 - 15.3 g/dL HCT 37.2 36.0 - 45.2 % MCV 97.6 81.5 - 97.5 fL MCH 32.8 27.0 - 34.0 pg MCHC 33.6 32.0 - 36.0 g/dL RDW 12.9 11.5 - 15.5 % PLT 112 (L) 140 - 400 K/uL MPV 10.7 6.6 - 11.1 fL COMPREHENSIVE METABOLIC PANEL Result Value Ref Range BUN 15 6 - 20 mg/dL Creatinine 0.6 0.5 - 1.0 mg/dL Estimated Glomerular Filtration Rate >90 >=60 mL/min Sodium 141 135 - 146 mmol/L Potassium 3.8 3.5 - 5.1 mmol/L Chloride 106 98 - 107 mmol/L CO2 23 22 - 32 mmol/L Anion Gap 12 7 - 15 mmol/L Glucose 111 70 - 120 mg/dL Albumin 3.8 3.8 - 5.0 g/dL AST 34 10 - 35 U/L Alkaline Phosphatase 140 (H) 35 - 130 U/L Bilirubin, Total 0.3 <=1.2 mg/dL Calcium 9.0 8.4 - 10.2 mg/dL Protein 6.2 6.0 - 8.3 g/dL ALT 20 10 - 35 U/L *Note: Due to a large number of results and/or encounters for the requested time period, some results have not been displayed. A complete set of results can be found in Results Review. Lipid Panel Results: Results for orders placed [...] >49 mg/dL Non-HDL Cholesterol 147 <=159 mg/dL Lab Results Component Value Date/Time TSH - [facility] 1.03 05/20/2023 05:46 AM TSH - [facility] 0.28 06/25/2022 05:00 AM TSH - [facility] 0.17 (L) 05/30/2022 05:18 AM TSH - [facility] 0.39 06/24/2019 01:26 AM TSH - [facility] 1.42 07/16/2018 05:47 AM TSH - [facility] 1.03 07/08/2016 10:17 AM ROS: CONSTITUTIONAL: No fevers, sweats, or chills and +weight gain of 5 pounds in one month--appetite improved on Mirtazapine. +generalized weakness and hemiparesis from h/o astrocytoma EYE: No recent significant change in vision [...] chest pain, No shortness of breath, No dyspnea on exertion, No orthopnea, No paroxysmal nocturnal dyspnea, No palpitations, and No syncope GASTROINTESTINAL: No abdominal pain, No change in bowel habits, No significant heartburn, No significant change in appetite, No hematemesis, No blood in stools or black tarry stools, No abdominal bloating or early satiety, and +chronic constipation and dysphagia FEMALE: No dysuria, No frequency, and +incontinent of bowel and bladder HEMATOLOGIC: No coagulation disorder, No abnormal bleeding, and No chills EXTREMITIES: +as above SKIN/INTEGUMENTARY: +chronic urticaria NEUROLOGIC: +seizure disorder and hemiparesis related to astrocytoma and resection PSYCHIATRIC: Positive for depression O: I reviewed the most recent facilities vitals. General: alert, no distress, well nourished, well developed, and chronically ill appearing Head: Normocephalic, +postsurgical changes of skull and alopecia Neuro: alert, cooperative, slow speech, +left hemiparesis and poor tone of all extremities Eye Exam: PERRLA, extraocular movements intact, conjunctiva are pink and non- injected, sclera clear Ears: External ears normal Nose: no mucosal erythema, no mucosal edema, no purulent discharge Oropharynx: no exudate, no erythema, lips, buccal mucosa, and tongue normal, and mucous membranes are moist Neck: supple, no adenopathy, no bruits Heart: regular rate & rhythm, no murmur, and no gallops Lungs: chest symmetric with normal AP diameter, no chest deformities noted, no chest wall tenderness, lungs clear to auscultation Abdomen: abdomen soft, non-tender, normal bowel sounds, and no masses or organomegaly Extremities: no edema, no clubbing, no cyanosis A: Grade III astrocytoma (HCC) (Primary)--s/p resection. Follows with neurology and neurosurgery. Scheduled for follow-up brain MRI 07/30/23. Chronically disabled. Left hemiparesis (HCC)--stable Moderate episode of recurrent major depressive disorder (HCC)--continue mirtazapine 15 mg daily. Moods appear improved and eating much better and gaining weight. Gastroesophageal reflux disease without esophagitis--continue omeprazole 20 mg daily Idiopathic urticaria--continue cetirizine 10 mg daily HTN, goal below 140/90--controlled with amlodipine 2.5 mg daily. Dyslipidemia, goal LDL below 130--continue rosuvastatin 40 mg daily. Acquired hypothyroidism--controlled with levothyroxine 50 mcg daily Subdural hygroma--stable. Postsurgical in nature. Having follow-up brain MRI 07/30/23. Seizure disorder (HCC)--continue carbamazepine ER 200 mg twice daily. Follows with neurology. Acquired cerebral atrophy (HCC)--requires residential care. Excessive sleepiness--continue modafinil 200 mg daily per neurology. P: Medications reviewed. Please refer to MAR in the facility's medical record for the most up-to-date medication list. Continue present medication(s): Reviewed prison record for: vital signs, weight, bowel, and bladder function, and ADLs. Labs reviewed Continue current treatment plan as ordered Continue to follow up as needed and as scheduled [facility] Given: n/a Electronically signed by: Nina Haile MD I spent a total of 32 minutes coordinating, documenting, and providing care for this patient excluding time spent in the performance of separately billed services or time spent by another provider/QHP. documented in this encounter Plan of Treatment Upcoming Encounters Date Type Department Care Team (Late st Contact Info) Description 07/30/2023 9:00 AM EDT Imaging Radiology [address], [place] [address] [facility] [place] [address] 08/05/2023 3:00 PM EDT Telemedicine Hematology Oncology [facility] [address] [place] [id number] Vaishali Garcia PA-C [address] [place] [address] Health Maintenance Due Date Last Done Comments HIV Screening 1976 Albumin/Creatinine Ratio 09/13/1979 HPV/Co-Test 09/13/1991 Cologuard 2006 Colonoscopy 2006 Colorectal Cancer Screening 2006 Fecal Occult Blood Test 2006 Sigmoidoscopy 2006 Zoster Vaccines (1 of 2) 09/13/2011 DTaP,Tdap,and Td Vaccines (2 - Td or Tdap) 04/25/2018 04/25/2008 Mammogram 01/03/2022 01/03/2021, 06/08, 05/28/2011, Additional history exists COVID-19 Vaccine ( season) 2022 12/19/2021, 09/23/2021, 01/02/2021, Additional history exists Influenza Vaccine (FLU shot) (Season Ended) 2023 12/29/2021, 12/26/2016, 01/21/2016, Additional history exists Cervical Cancer Screening 02/06/2024 [...] on patient's age to complete this topic GARDASIL-HPV IMMUNIZATION SERIES Aged Out No longer eligible based on patient's age to complete this topic Hepatitis B Aged Out No longer eligi ble based on patient's age to complete this [...] episode of recurrent major depressive disorder (HCC) Gastroesophageal reflux disease without esophagitis Esophageal reflux Idiopathic urticaria HTN, goal below 140/90 Unspecified essential hypertension Dyslipidemia, goal LDL below 130 Other and unspecified hyperlipidemia Acquired hypothyroidism Unspecified hypothyroidism Subdural hygroma Subdural hemorrhage Seizure disorder (HCC) Unspecified epilepsy without mention of intractable epilepsy Acquired cerebral atrophy (HCC) Excessive sleepiness Hypersomnia, unspecified documented in this encounter Advance Directives Latest Code Status on File Code Status Date Activated Date Inactivated Comments Full Code 07/14/2019 6:22 AM 07/17/2019 4:37 PM This o rder reflects the patients wishes and were consensually agreed upon. Code Status History Code Status Date Activated Date Inactivated Comments Full Code 05/24/2018 6:24 PM 05/28/2018 7:52 PM This order reflects the patients wishes and were consensually agreed upon. Care Teams Appointment Clerk Relationship Specialty Start Date End Date Nina Haile MD [address] [place], [place] [address] [address] PCP - General Family Medicine 10/25/19 documented as of this encounter
--- OUTSIDE RECORDS SUMMARY | 2024-01-05 13:43 | External Medical Summary | Summary of Care ---
Author Name Unknown Organization [facility] Address [address] [place] [address] Phone [phone] Care Team Providers Care Leaf Tier Name Role Phone Nina Haile MD Primary Care Provide r Reason for Visit * Reason Onset Date Comments Fpc Visit 07/16/2023 Encounter Details Date Type Department Care Team (Latest Contact Info) Description 07/16/2023 8:30 AM EDT Fpc Visit [facility] [address] [place] [address] Senait Granados PA-C [address] [place], [place] [phone] Weight gain*; Grade III astrocytoma (HCC); Left hemiparesis (HCC); Acquired hypothyroidism Allergies Active Allergy Reactions Criticality Noted Date Comments Cimetidine 05/29/1999 Hair thinning Cimetidine Unknown 12/19/2020 Erythromycin 09/08/2000 GI side effects Penicillins 05/29/1999 Phenytoin Sodium 05/29/1999 Rash, hives documented as of this encounter (statuses as of 07/16/2023) Medications Medication Sig Dispensed Refills Start Date [...] the morning. 30 Tab 5 11/24/2019 Active [place]ville-3 Fatty Acids (FISH OIL) 1200 MG CAPS Take 1 Capsule by mouth in the morning. 30 Cap 0 Active Sennosides-Docus ate Sodium 8.6-50 MG Oral [...] mouth 3 times a day. (0900/1300/1700 ). 0 12/29/2022 Active Modafinil 200 MG Oral Tablet (Provigil) Take 1 Tablet by mouth in the morning. 30 Tablet 5 04/24/2023 Active Gabapentin 100 MG Oral Capsule (Neurontin) Take 1 Capsule by mouth at bedtime. 0 06/10/2023 Active Mirtazapine 15 MG Oral Tablet (Remeron) Take 1 Tablet by mouth at bedtime. 0 07/16/2023 Active Mirtazapine 15 MG Oral Tablet (Remeron) Take 0.5 Tablets by mouth at bedtime. 30 Tablet 0 03/12/2022 07/16/2023 Discontinued documented as of this encounter (statuses as of 07/16/2023) Active Problems Problem Noted Date Diagnosed Date [...] scanned into Electronic Medical Record LOC PRIM [id number] 12/03/1999 Esophageal reflux 05/29/1999 Idiopathic urticaria History of peptic ulcer disease Overview: ICD-10 update of inactive term Acquired hypothyroidism documented as of this encounter (statuses as of 07/16/2023) Resolved Problems Problem Noted Date Diagnosed Date [...] as of this encounter (statuses as of 07/16/2023) Immunizations Name Administration Dates Next Due Seasonal [...] Description 07/30/2023 9:00 AM EDT Imaging Radiology [address] [place] [address] 08/05/2023 3:00 PM EDT Telemedicine Hematology Oncology [facility] [address] [facility] [place] [phone] Vaishali Garcia PA-C [address] [facility] [place] [address] Health Maintenance Due Date Last Done Comments [...] as of this encounter Visit Diagnoses Diagnosis Weight gain- Primary Abnormal weight gain Grade III astrocytoma (HCC) Malignant neoplasm of brain, unspecified site Left hemiparesis (HCC) Hemiplegia, unspecified, affecting unspecified side Acquired hypothyroidism Unspecified hypothyroidism documented in this encounter Advance Directives Latest [...] and were consensually agreed upon. Care Teams Leaf Tier Relationship Specialty Start Date End Date Nina Haile MD [address] [place] [address] [place] [address] PCP - General Family Medicine 10/25/19 documented as of this encounter
--- OUTSIDE RECORDS SUMMARY | 2024-01-05 13:43 | External Medical Summary | Summary of Care ---
Author Name Unknown Organization [facility] Address [address] [place] [address] Phone [phone] Care Team Providers Care Menagerie Caretaker Name Role Phone Nina Haile MD Primary Care Provide r Reason for Visit * Reason Onset Date Comments [facility] Visit 07/13/2023 Encounter Details Date Type Department Care Team (Latest Contact Info) Description 07/13/2023 8:30 AM EDT [facility] Visit [facility] [address] [place] [address] Senait Granados PA-C [address] [place], [place] [phone] Pain and swelling of left upper extremity*; Left hemiparesis (HCC); Dermatitis; Grade III astrocytoma (HCC) Allergies Active Allergy Reactions Criticality Noted Date Comments Cimetidine 05/29/1999 Hair thinning Cimetidine Unknown 12/19/2020 Erythromycin 09/08/2000 GI side effects Penicillins 05/29/1999 Phenytoin Sodium 05/29/1999 Rash, hives documented as of this encounter (statuses as of 07/13/2023) Medications Medication Sig Dispensed Refills Start Date [...] the morning. 30 Tab 5 11/24/2019 Active [place]-3 Fatty Acids (FISH OIL) 1200 MG CAPS [...] Active Boost Oral Liquid 0 11/14/2021 Active Mirtazapine 15 MG Oral Tablet (Remeron) Take 0.5 Tablets by mouth at bedtime. 30 Tablet 0 03/12/2022 Active Magnesium Oxide 400 (240 Mg) MG [...] by mouth at bedtime. 0 06/10/2023 Active documented as of this encounter (statuses as of 07/13/2023) Active Problems Problem Noted Date Diagnosed Date [...] scanned into Electronic Medical Record LOC PRIM [id number] 12/03/1999 Esophageal reflux 05/29/1999 Idiopathic urticaria History of peptic ulcer disease Overview: ICD-10 update of inactive term Acquired hypothyroidism documented as of this encounter (statuses as of 07/13/2023) Resolved Problems Problem Noted Date Diagnosed Date [...] as of this encounter (statuses as of 07/13/2023) Immunizations Name Administration Dates Next Due Seasonal [...] Description 07/30/2023 9:00 AM EDT Imaging Radiology [address] [place] [address] 08/05/2023 3:00 PM EDT Telemedicine Hematology Oncology [address] [place] [phone] Vaishali Garcia PA-C [address] [place] [address] Health Maintenance Due Date Last Done Comments [...] Cancer Screening 02/06/2024 Pap Smear 02/06/2024 02/05/2021, 0309/2011, 03/11/2010, Additional history exists TSH 05/19/2024 05/20/2023, [...] as of this encounter Visit Diagnoses Diagnosis Pain and swelling of left upper extremity- Primary Left hemiparesis (HCC) Hemiplegia, unspecified, affecting unspecified side Dermatitis Contact dermatitis and other eczema, due to unspecified cause Grade III astrocytoma (HCC) Malignant neoplasm of brain, unspecified site documented in this encounter Advance Directives Latest [...] and were consensually agreed upon. Care Teams Menagerie Caretaker Relationship Specialty Start Date End Date Nina Haile MD [address] [place] [address] [place] [address] PCP - General Family Medicine 10/25/19 documented as of this encounter
--- OUTSIDE RECORDS SUMMARY | 2024-01-05 13:43 | External Medical Summary ---
Author Name Unknown Address Unknown Organization K0G[facility] [address] [place] [address] Laboratory Report Ordering Provider Test Date Status RUSSELL CHOWDARY 08/31/2023 05:27:00 Final Observation Date Value Abnormality Reference (Units ) Status SYNC LEUKOCYTES IN BLOOD BY AUTOMATED COUNT 08/31/2023 05:27:00 5.65 4.00-10.80 (K/uL) Final Segs 08/31/2023 05:27:00 69.2 40.0-75.0 (%) Final Lymphs % 08/31/2023 05:27:00 26.7 18.0-42.0 (%) Final Monos 08/31/2023 05:27:00 3.9 1.0-11.0 (%) Final Eosinophils 08/31/2023 05:27:00 0.0 0.0-6.0 (%) Final Basos 08/31/2023 05:27:00 0.2 0.0-2.0 (%) Final Absolute Segs 08/31/2023 05:27:00 3.91 1.80-7.70 (K/uL) Final Lymphs, absolute 08/31/2023 05:27:00 1.51 1.00-4.80 (K/ul) Final Monos, Abs 08/31/2023 05:27:00 0.22 0.00-1.10 (K/uL) Final Eos, Abs 08/31/2023 05:27:00 0.00 0.00-0.70 (K/uL) Final Basos, Abs 08/31/2023 05:27:00 0.01 0.00-0.20 (K/uL) Final Performing Location [facility]ORY [facility] [place] [address] [place] [id number]
--- OUTSIDE RECORDS SUMMARY | 2024-01-05 13:43 | External Medical Summary | Summary of Care ---
Author Name Unknown Organization [facility] Address [address] [place] [address] Phone [phone] Care Team Providers Care Junior Estimator Name Role Phone Nina Haile MD Primary Care Provide r Reason for Referral * Precert (Within 10 days (routine)) - Authorized Specialty Diagnoses / Procedures Referred By Contac t Referred To Contact Radiology Diagnoses Grade III astrocytoma (HCC) Procedures MRI BRAIN W WO CONTRAST Vaishali Garcia PA-C [address] [place] [address] Referral ID Status Reason Start Date Expiration Date V isits Requested Visits Authorized [id number] Authorized 08/01/2024 999 999 Reason for Visit * Reason Comments Follow Up Encounter Details Date Type Department Care Team (Late st Contact Info) Description 08/05/2023 3:00 PM EDT Telemedicine Hematology Oncology [facility] [address] [place] [address] Vaishali Garcia PA-C [address] [place] [address] Grade III astrocytoma (HCC)*; Seizure disorder (HCC); Left hemiparesis (HCC); Cognitive decline Allergies Active Allergy Reactions Criticality Noted Date Comments Cimetidine 05/29/1999 Hair thinning Cimetidine Unknown 12/19/2020 Erythromycin 09/08/2000 GI side effects Penicillins 05/29/1999 Phenytoin Sodium 05/29/1999 Rash, hives documented as of this encounter (statuses as of 08/05/2023) Medications Medication Sig Dispensed Refills Start Date [...] the morning. 30 Tab 5 11/24/2019 Active [place]-3 Fatty Acids (FISH OIL) 1200 MG CAPS [...] as of this encounter (statuses as of 08/05/2023) Active Problems Problem Noted Date Diagnosed Date [...] scanned into Electronic Medical Record LOC PRIM [id number] 12/03/1999 Esophageal reflux 05/29/1999 Idiopathic urticaria History of peptic ulcer disease Overview: ICD-10 update of inactive term Acquired hypothyroidism documented as of this encounter (statuses as of 08/05/2023) Resolved Problems Problem Noted Date Diagnosed Date [...] as of this encounter (statuses as of 08/05/2023) Immunizations Name Administration Dates Next Due Seasonal [...] as of this encounter Progress Notes * Vaishali Garcia PA-C - 08/05/2023 2:54 PM EDT Hematology/Oncology Telemedicine Note Neuro-Oncology Follow Up [address] [address] Name: Janay Kaplan Date: 08/05/23 Patient location: FACILITY. I was in a hospital or clinic location. After connecting through [facility], patient was identified by name and date of and/or wristband checked. Patient (or authorized legal congressional representative) was then informed that this was a Telemedicine visit being conducted confidentially over secure lines. My office door was closed. The following individuals were in the room with me and the patient informed CAROLANN Martinez.. Patient acknowledged consent and understanding of privacy and security of the Telemedicine visit and gave permission to have a telemedicine presenter stay in the room in order to assist with the history and to conduct the exam as needed. I informed the patient that I have reviewed their record in [facility] and presented the opportunity for them to ask any questions regarding the visit today. The patient agreed to participate. CHIEF COMPLAINT: Janay Kaplan is a 62 year old female patient of Dr. Hurtado here today for f/u visit. See bottomof note for impression/plan. HISTORY OF PRESENT ILLNESS Oncology history from patient chart, confirmed with patient. See below cancer treatment history. 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 Michele Weems ([place]) Radiation: at [facility] ([place]) Chemotherapy: PCV x 6 cycles Increased number of falls and ? Increased hygroma. She has residual L side weakness. Per daughter -she had a heard time taking care of her before. She was recommended 24h care. Poor balance for 4-5 years, slight worse recently. Grade III astrocytoma (HCC) 1996 Initial Diagnosis Grade III astrocytoma (HCC) 1996 Surgery Resection 1996 - Radiation Post Op RT 1996 - Chemotherapy 6 cycles PCV 07/14/[address] Mejia - biopsy only 07/14/2019 Molecular Testing Results A: Right thalamic tumor, biopsy: Brain parenchyma with mild gliosis. B: Right thalamic tumor, biopsy: Features consistent with radiation associated changes. No tumor identified. Clinical History Brain tumor. [facility] Intraoperative Diagnosis *A: FROZEN SECTION DIAGNOSIS: A1 FS-right thalamus tumor-brain tissue, insufficient for diagnosis. Read by Dr. Bassett to Dr. Mejia. Microscopic Findings Necrosis Foamy histiocytes and gliosis Hyalinized vessels Sections from part A show brain parenchyma with reactive gliosis. Sections from part B show radiation associated changes to include hyalinized vessels, histiocytic infiltration, necrosis, gliosis and calcification. There are rare atypical cells noted but no tumor identified. Immunostains show intact ATRX and [id number] expression, no p53 overexpression and no IDH-1 [R132H] mutation. 07/25/2019 Discussion Seen in [facility] - discussed 6 weeks surveillance imaging with Neuro Oncology visit. If worsening symptoms, can discuss the need for Avastin therapy at that time. 11/13/2020 Discussion ADDENDUM to 1996 pathology Addendum Diagnosis Immunostaining and FISH testing for 1p/19q are performed on the archival block. Immunostains show loss of ATRX, p53 expression in minority of cells, and no reactivity for mIDH-1 [R132H]. The 1p/19q FISH testing is failed due to unknown fixation and age of tissue. 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 Histologically tumor shows pericellular clearing artifact, microvascular proliferation, and necrosis. Since 1p/1pq FISH did not work, and we are not sure that theloss of ATRX is real or due to technical failure or age of the block, the differentials include oligodendroglioma, WHO grade 3 or astrocytoma/glioblastoma, WHO grade 4. Send out molecular testing (for other IDH1/2, MGMT, EGFR, TERT and ATRX) would be helpful for a definite diagnosis however not sure if that going to work on archival block or not. Clinically tumor is behaving like an oligodendroglial tumor. INTERVAL HISTORY: Janay Kaplan is a 62 year old female with a history as outlined above. Patient nursing facilitywas able to set up telemedicine visit appropriately - CICI Tierney was present with patient. Patient sitting up in her bed today. She notes that she is doing well - complains of some swelling in her LUE due to her hemiplegia. She notes that her R side still feels strong and she is able to do things with it still. Her cognition seems improved compared to last visit. Her nurse states that she has been doing much better - she is eating more. Had lost about 60lbs due to not eating and is starting to gain some of that back now. Patient otherwise has no other complaints or concerns today. Review of patient's allergies indicates: Allergen Reactions Cimetidine Hair thinning Cimetidine Unknown Erythromycin GI side effects Penicillins Phenytoin Sodium Rash, hives Current Outpatient Medications Medication Sig Dispense Refill [...] by mouth daily. (0900). 30 Tab 0 triamcinolone acetonide (ARISTOCORT) 0.1 % cream Apply to rash on the arms and legs twice daily as needed for flares or itching. 80 g 1 aspirin enteric coated 81 MG TBEC Take 1 Tablet by mouth in the morning. (0900).. 100 Tab 0 Camphor-Menthol 0.5-0.5 % External Lotion Apply topically to affected area every 2 hours as needed for Itching. 222 mL 0 Emollient (CETAPHIL MOISTURIZING) CREA Apply topically to affected area. Apply from head to toe every day in the morning. cetirizine (ZYRTEC) 10 MG Tablet One tablet [...] mouth in the morning. 30 Tab 5 [place]-3 Fatty Acids (FISH OIL) 1200 MG CAPS Take 1 Capsule by mouth in the morning. 30 Cap 0 Sennosides-Docusate Sodium 8.6-50 MG Oral Tablet Take 1 Tablet by mouth in the morning and 1 Tabletbefore bedtime. amLODIPine Besylate 5 MG Oral Tablet Take 0.5 Tablets by mouth in the morning. (0900).. 30 Tab 0 Boost Oral Liquid Magnesium Oxide 400 (240 Mg) MG Oral Tablet (Mag-Ox) Take 1 Tablet by mouth in the morning. Vitamin D3 25 MCG (1000 UT) Oral [...] Take 1 Tablet by mouth at bedtime. No current facility-administered medications for this visit. Family History Problem Relation Name Age of Onset Cancer Father unknown type Hypertension Father Heart Disorder Mother Thyroid Disorder Mother graves disease Thyroid Disorder Sister Breast Cancer No significant family history Colon cancer No significant family history Ovarian cancer No significant family history REVIEW OF SYSTEMS: Please refer to interval history, otherwise ROS within normal limits. Karnofsky Performance Score (KPS) 50-60 OBJECTIVE: There were no vitals filed for this visit. N/a telemedicine visit Wt Readings from Last 5 Encounters: 03/25/23 62.6 kg (138 lb) 12/29/22 54.9 kg (121 lb) 02/17/22 70.3 kg (154 lb 15.7 oz) 09/18/21 70.3 kg (155 lb) 04/04/21 70.3 kg (155 lb) PHYSICAL EXAM: General Appearance: Normally developed female with L sided hemiplegia, sitting upright in her bed at the nursing facility, Alert/Oriented to self, responds appropriately to questions LABS: Results for orders placed or performed in [...] results can be found in Results Review. IMAGING: MRI brain w/wo contrast - 08/01/23 IMPRESSION No change from 2022. No significant change from prior study. IMPRESSION: 1. Hx anaplastic leatha in 1996 s/p RT and 6 cycles of PCV, had concern for recurrence in July 2019 s/p biopsy revealing necrosis 2. Hx seizures 3. Functional/cognitive decline 4. L hemiparesis PLAN: - MRI Brain from 08/01/23 reviewed as noted above - with MRI being stable, continue to recommend yearly MRI surveillance - sooner with changes in symptoms - RTC in 1 year with Bryant/Jose with MRI brain w/wo contrast prior - Patient was educated on concerning signs and symptoms and was instructed to call the clinic or goto the ED if they begin to experience any. Patient verbally understood and all questions were addressed. I spent a total of 10-19 minutes (exact time 15 mins) on the date of service in preparation, delivery, and documentation of the care provided to Janay Kaplan excluding any time spent in the performance of separately billed services. Vaishali Garcia PA-C documented in this encounter Plan of Treatment Scheduled Orders Name Type Priority Associated Diagnoses Orde r Schedule MRI BRAIN W WO CONTRAST Medical Imaging Routine Grade III astrocytoma (HCC) Expected: 08/01/2024 (Approximate), Expires: 09/04/2024 Health Maintenance Due Date Last Done Comments [...] Primary Malignant neoplasm of brain, unspecified site Seizure disorder (HCC) Unspecified epilepsy without mention of intractable epilepsy Left hemiparesis (HCC) Hemiplegia, unspecified, affecting unspecified side Cognitive decline Unspecified persistent mental disorders due to conditions classified elsewhere documented in this encounter Advance Directives * [...] and were consensually agreed upon. Care Teams Junior Estimator Relationship Specialty Start Date End Date Nina Haile MD [address] [place], [place] [address] [address] PCP - General Family Medicine 10/25/19 documented as of this encounter
--- OUTSIDE RECORDS SUMMARY | 2024-01-05 13:43 | External Medical Summary | Summary of Care ---
Author Name Unknown Organization [facility] Address [address] [place] [address] Phone [phone] Care Team Providers Care Manufacturing Support Engineer Name Role Phone Nina Haile MD Primary Care Provide r Reason for Visit * Reason Onset Date Comments Longterm Visit 09/01/2023 Encounter Details Date Type Department Care Team (Latest Contact Info) Description 09/01/2023 9:00 AM EDT Longterm Visit [facility] [address] [place] [address] Senait Granados PA-C [address] [place], [place] [id number] Idiopathic urticaria*; Grade III astrocytoma (HCC); At risk for aspiration Allergies Active Allergy Reactions Criticality Noted Date Comments Cimetidine 05/29/1999 Hair thinning Cimetidine Unknown 12/19/2020 Erythromycin 09/08/2000 GI side effects Penicillins 05/29/1999 Phenytoin Sodium 05/29/1999 Rash, hives documented as of this encounter (statuses as of 09/01/2023) Medications Medication Sig Dispensed Refills Start Date [...] the morning. 30 Tab 5 11/24/2019 Active [place]-3 Fatty Acids (FISH OIL) 1200 MG CAPS [...] as of this encounter (statuses as of 09/01/2023) Active Problems Problem Noted Date Diagnosed Date [...] scanned into Electronic Medical Record LOC PRIM [id number] 12/03/1999 Esophageal reflux 05/29/1999 Idiopathic urticaria History of peptic ulcer disease Overview: ICD-10 update of inactive term Acquired hypothyroidism documented as of this encounter (statuses as of 09/01/2023) Resolved Problems Problem Noted Date Diagnosed Date [...] as of this encounter (statuses as of 09/01/2023) Immunizations Name Administration Dates Next Due Seasonal Influenza, Split, I IV3, With Preserve, Inj 03/01/2014,12/09/2010,11/22/2008, 0 08,01/16/2006,12/18/2004,12/18/2003,12/20 TDAP, Age 7 and older, IM (Adacel) [...] Upcoming Encounters Date Type Department Care Team (Araceli st Contact Info) Description 08/04/2024 3:30 PM EDT Telemedicine Hematology Oncology [facility] [address] [place] [id number] Neida Hurtado MD [address] [place] [address] Health Maintenance Due Date Last Done Comments Depression Monitoring 1973 HIV Screening 1976 Albumin/Creatinine Ratio 09/13/1979 HPV/Co-Test 09/13/1991 Cologuard 2006 Colonoscopy 2006 Colorectal Cancer Screening 2006 Fecal Occult Blood Test 2006 Sigmoidoscopy 2006 Zoster Vaccines (1 of 2) 09/13/2011 DTaP,Tdap,and Td Vaccines (2 - Td or Tdap) 04/25/2018 04/25/2008 Mammogram 01/03/2022 01/03/2021, 06/08, 05/28/2011, Additional history exists Cervical Cancer Screening 02/06/2024 [...] on patient's age to complete this topic Influenza Vaccine (FLU shot) Completed , 12/29/2021, 12/26/2016, Additional history exists COVID-19 Vaccine Completed 01/01/2023, , 09/23/2021, Additional history exists GARDASIL-HPV IMMUNIZATION SERIES Aged Out No longer [...] (HCC) Malignant neoplasm of brain, unspecified site At risk for aspiration Other specified conditions influencing health status documented in this encounter Advance Directives * [...] and were consensually agreed upon. Care Teams Manufacturing Support Engineer Relationship Specialty Start Date End Date Nina Haiel MD [address] [place] [address] [place] [address] PCP - General Family Medicine 10/25/19 documented as of this encounter
--- OUTSIDE RECORDS SUMMARY | 2024-01-05 13:43 | External Medical Summary ---
Author Name Unknown Address Unknown Organization [facility] [address] [place] [address] Laboratory Report Ordering Provider Test Date Status RUSSELL CHOWDARY 08/31/2023 05:27:00 Final Observation Date Value Abnormality Reference (Units ) Status WBC, Total 08/31/2023 05:27:00 5.65 4.00-10.8 0 (K/uL) Final RBC 08/31/2023 05:27:00 3.91 3.85-5.15 (M/uL) Final Hemoglobin 08/31/2023 05:27:00 12.5 12.0-15.3 (g/dL) Final HCT 08/31/2023 05:27:00 38.3 36.0-45.2 (%) Final MCV 08/31/2023 05:27:00 98.0 81.5-97.5 (fL) Final MCH 08/31/2023 05:27:00 32.0 27.0-34.0 (pg) Final MCHC 08/31/2023 05:27:00 32.6 32.0-36.0 (g/dL) Final RDW 08/31/2023 05:27:00 12.1 11.5-15.5 (%) Final Platelets 08/31/2023 05:27:00 146 140-400 (K /uL) Final MPV 08/31/2023 05:27:00 10.6 6.6-11.1 ( fL) Final Performing Location LAB[facility]ATORY [facility] [place] [address] [place] [id number]
--- OUTSIDE RECORDS SUMMARY | 2024-01-05 13:43 | External Medical Summary | Summary of Care ---
Author Name Unknown Organization [facility] Address [address] [facility] [place] [address] Phone [phone] Care Team Providers Care Pumper Gager Apprentice Name Role Phone Nina Haile MD Primary Care Provide r Encounter Details Date Type Department Care Team (Late st Contact Info) Description 08/31/2023 Orders Only Lab Mobile Phlebotomy [facility] [address] [place] [address] Nina Haile MD [address] [place] [address] [place] [address] Septicemia ([facility])* Allergies Active Allergy Reactions Criticality Noted Date Comments Cimetidine 05/29/1999 Hair thinning Cimetidine Unknown 12/19/2020 Erythromycin 09/08/2000 GI side effects Penicillins 05/29/1999 Phenytoin Sodium 05/29/1999 Rash, hives documented as of this encounter (statuses as of 08/31/2023) Medications Medication Sig Dispensed Refills Start Date [...] the morning. 30 Tab 5 11/24/2019 Active [place]-3 Fatty Acids (FISH OIL) 1200 MG CAPS [...] as of this encounter (statuses as of 08/31/2023) Active Problems Problem Noted Date Diagnosed Date [...] scanned into Electronic Medical Record LOC PRIM [id number] 12/03/1999 Esophageal reflux 05/29/1999 Idiopathic urticaria History of peptic ulcer disease Overview: ICD-10 update of inactive term Acquired hypothyroidism documented as of this encounter (statuses as of 08/31/2023) Resolved Problems Problem Noted Date Diagnosed Date [...] as of this encounter (statuses as of 08/31/2023) Immunizations Name Administration Dates Next Due Seasonal [...] Upcoming Encounters Date Type Department Care Team (Latest Contact Info) Description 08/31/2023 5:00 AM EDT Laboratory Lab Mobile Phlebotomy [facility] [address] [facility] [place] [address] [facility] [address] [place] [address] 08/31/2023 7:00 AM EDT M[facility] Visit [facility] [place] [address] [facility] [place] [address] Senait Granados PA-C [facility] [place] [address] Chronic urticaria*; Grade III astrocytoma (HCC); Left hemiparesis (HCC) 08/04/2024 3:30 PM EDT Telemedicine Hematology Oncology [facility] [address] [place] [address] Neida Hurtado MD [address] [place] [address] Scheduled Orders Name Type Priority Associated Diagnoses Orde r Schedule CBC WITH WBC DIFFERENTIAL Lab Routine Septicemia (HCC) Expected: 08/31/2023, Expires: 08/30/2024 Health Maintenance Due Date Last Done Comments Depression Monitoring 1973 HIV Screening 1976 Albumin/Creatinine Ratio 09/13/1979 HPV/Co-Test 09/13/1991 Cologuard 2006 Colonoscopy 2006 Colorectal Cancer Screening 2006 Fecal Occult Blood Test 2006 Sigmoidoscopy 2006 Zoster Vaccines (1 of 2) 09/13/2011 DTaP,Tdap,and Td Vaccines (2 - Td or Tdap) 04/25/2018 04/25/2008 Mammogram 01/03/2022 01/03/2021, 04/2 09/2014, 05/28/2011, Additional history exists Cervical Cancer Screening 02/06/2024 Pap Smear 02/06/2024 02/05/2021, 03/0 09/2011, 03/11/2010, Additional history exists TSH 05/19/2024 05/20/2023, 041 11/2022, 05/30/2022, Additional history exists GFR 06/07/2024 06/08/2023, 03/05/2023, 02/16/2023, Additional history exists Diabetes Screening 06/07/2026 [...] hemiparesis (HCC) Hemiplegia, unspecified, affecting unspecified side Septicemia (HCC)- Primary Unspecified septicemia documented in this encounter Advance Directives * [...] and were consensually agreed upon. Care Teams Pumper Gager Apprentice Relationship Specialty Start Date End Date Nina Haile MD [address] [place] [address] [place] [address] PCP - General Family Medicine 8/18/20 documented as of this encounter
--- OUTSIDE RECORDS SUMMARY | 2024-01-05 13:43 | External Medical Summary | Summary of Care ---
Author Name Unknown Organization [facility] Address [address] [facility] [place] [address] Phone [phone] Care Team Providers Care Miter Grinder Operator Name Role Phone Nina Haile MD Primary Care Provide r Reason for Visit * Reason Onset Date Comments Senior Living Visit 08/11/2023 Encounter Details Date Type Department Care Team (Latest Contact Info) Description 08/11/2023 9:30 AM EDT Senior Living Visit [facility] [address] [place] [address] Senait Granados PA-C [address] [place] [address] Dysphagia, unspecified type*; Acute cough; Grade III astrocytoma (HCC) Allergies Active Allergy Reactions Criticality Noted Date Comments Cimetidine 05/29/1999 Hair thinning Cimetidine Unknown 12/19/2020 Erythromycin 09/08/2000 GI side effects Penicillins 05/29/1999 Phenytoin Sodium 05/29/1999 Rash, hives documented as of this encounter (statuses as of 08/11/2023) Medications Medication Sig Dispensed Refills Start Date [...] the morning. 30 Tab 5 11/24/2019 Active [place]-3 Fatty Acids (FISH OIL) 1200 MG CAPS [...] as of this encounter (statuses as of 08/11/2023) Active Problems Problem Noted Date Diagnosed Date [...] scanned into Electronic Medical Record LOC PRIM [id number] 12/03/1999 Esophageal reflux 05/29/1999 Idiopathic urticaria History of peptic ulcer disease Overview: ICD-10 update of inactive term Acquired hypothyroidism documented as of this encounter (statuses as of 08/11/2023) Resolved Problems Problem Noted Date Diagnosed Date [...] as of this encounter (statuses as of 08/11/2023) Immunizations Name Administration Dates Next Due Seasonal [...] Progress Notes * Senait Granados PA-C - 08/11/2023 1:59 PM EDT Name: Janay Kaplan Date of :1960 TRANSITION EVENT: Type: Non-applicable Date: August 10 Code Status: No Code This note pertains to care provided at [facility]. Please see facility medical record for original note. This note is not to be edited or addended in [employer]. Editing or addending needs to occur in the facilities medical record. Subjective: Janay Kaplan is a 62 year old female. Patient being seen for ? dysphagia Chief Complaint Patient presents with Senior Living Visit HPI: I was asked to assess pt for episodes of spasmodic cough which occurs only when pt swallows. Pt states this has been going on but didn't tell staff. Staff noticed this for the first time at lunch today. Pt states when food reaches the back of her throat, she needs to cough. No choking episodes. No aspiration episodes. Non productive cough resolves within a minute until she takes her next bite. No chills or fever. No GERD signs or symptoms. No nausea or vomiting. No recent medication changes. Pt has hx of Grade III astrocytoma and had recent oncology evaluation and MRI of brain done and showed post surgical changes with no acute findings. CBC Results: Results for orders placed or [...] K/uL MPV 10.7 6.6 - 11.1 fL Hemoglobin Results: Lab Results Component Value Date/Time HGB 12.5 06/08/2023 06:18 AM HGB 12.5 05/20/2023 05:46 AM HGB 11.5 (L) 08/13/2022 05:32 AM HGB 13.7 10/14/2019 05:10 AM HGB [...] Problem List Diagnosis Esophageal reflux LOC PRIM [id number] Idiopathic urticaria History of peptic ulcer disease [...] LV functon. LVEF 60 to 65%.mild LVH. [facility] CARPAL TUNNEL SURGERY Right 1991 right CHEST 1 VIEW 12/20/2018 pulmonary vascular congesion. trace pleural fluid left base. [facility] CRAN LOBE,NOT TEMPORAL,ELEC Dr [place], [place] right frontal lobectomy/malignant brain tumor CT HEAD/BRAIN WO CONTRAST 12/20/2018 no acute intracranial findings. [facility] CTA NECK W CONTRAST 12/20/2018 no significant occlusion, stenosis or dissection within carotid or vertebral arteries. mild scattered plaque formation. [facility] DILATION AND CURETTAGE (D&C) EKG 12/20/2018 NSR. LVH. no acute changes. [facility] LAPAROSCOPY;WITH BIOPSY times 3 Laparoscopy,w Bx- Thursday LIGATE/CUT OVIDUCT(S) MAMMOGRAM SCREENING BILATERAL 04/03/2010 cat. 1, repeat in 12mths MAMMOGRAM SCREENING BILATERAL Bilateral 07/04/14 almost entirely fat, category 1 normal MICROSURGERY ADD-ON Right 07/14/2019 MICROSURGICAL SURGERY REQUIRING MICROSCOPE LISTED SEPARATELY performed by Pankaj Mejia, [place] [facility] MRA HEAD W CONTRAST 12/20/2018 no signficant stenosis, occlusion or aneurysm wtih [place]. modeate midline shift to left unchanged from prior exam. [facility] MRI BRAIN WITH CONTRAST 12/20/2018 stable post surgical changes s/p right frontal craniotomy and resecton. no acute pathology. [facility] QUIROZ SKULL FOR BIOPSY Right 07/14/2019 KENNY HOLE BIOPSY OF BRAIN performed by Pankaj Mejia MD at [place] [facility] RADIATION THERAPY DOSE PLAN,COMPLEX - 30 txs/cranium REMOVAL OF TONSILS, UNDER AGE 12 STEREOTACTIC CRANIAL INTRADURAL NAVIGATION Right 07/14/2019 STEREOTACTIC CRANIAL INTRADURAL NAVIGATION performed by Pankaj Mejia MD at [place] [facility] UPPER GI ENDOSCOPY/EXAM neg test/naveen test neg. [...] Types: Cigarettes Quit date: 03/09/1991 Years since quittin.4 Smokeless tobacco: Never Tobacco comments: no passive [...] list as this cannot be edited in [employer]. Review of Systems: Constitutional ROS: No change [...] No nausea, vomiting, diarrhea, or constipation and + dysphagia Musculoskeletal/Extremities ROS: No pain, redness or swelling on the joints Skin/Integumentary ROS: No rash and No itching Neurologic ROS: see HPI Psychiatric ROS: No depression, No anxiety and No psychosis Sleep: No sleep disorders OBJECTIVE: PHYSICALEXAM: [facility] 03/13/2011 I reviewed the most recent facilities [...] Neuro Exam: alert with affected speech, hemiparesis continues unchanged Skin: skin color, texture, turgor are normal, no rashes or significant lesions ASSESSMENT: Dysphagia, unspecified type (Primary) Will obtain speech consult to assess Acute cough Only stimulated with swallowing Speech therapy to evaluate Grade III astrocytoma (HCC) Reviewed latest recent oncology followup Continue present medications and dosages. PLAN: Reviewed [...] 3:30 PM EDT Telemedicine Hematology Oncology [facility] [address] [place] [address] Neida Hurtado MD [address] [place] [address] Health Maintenance Due Date Last [...] as of this encounter Visit Diagnoses Diagnosis Dysphagia, unspecified type- Primary Acute cough Grade III astrocytoma (HCC) Malignant neoplasm of [...] and were consensually agreed upon. Care Teams Miter Grinder Operator Relationship Specialty Start Date End Date Nina Haile MD [address] [place] [address] [place] [id number] PCP - General Family Medicine 10/25/19 documented as of this encounter
--- OUTSIDE RECORDS SUMMARY | 2024-01-05 13:43 | External Medical Summary | Summary of Care ---
Author Name Unknown Organization [facility] Address [address] [place] [address] Phone [phone] Care Team Providers Care First Assistant Manager Name Role Phone Nina Haile MD Primary Care Provide r Reason for Visit * Reason Onset Date Comments Senior Living Visit 09/01/2023 Encounter Details Date Type Department Care Team (Latest Contact Info) Description 09/01/2023 9:00 AM EDT Senior Living Visit [facility] [address] [place] [address] Senait Granados PA-C [address] [place], [place] [id number] Idiopathic urticaria*; Grade III astrocytoma (HCC) Allergies Active Allergy [...] the morning. 30 Tab 5 11/24/2019 Active [place]-3 Fatty Acids (FISH OIL) 1200 MG CAPS [...] scanned into Electronic Medical Record LOC PRIM [id number] 12/03/1999 Esophageal reflux 05/29/1999 Idiopathic urticaria History [...] 08/04/2024 3:30 PM EDT Telemedicine Hematology Oncology [facility] [address] [place] [address] Neida Hurtado MD [address] [place] [address] Health Maintenance Due Date Last [...] and were consensually agreed upon. Care Teams First Assistant Manager Relationship Specialty Start Date End Date Nina Haile MD [address] [place] [address] PCP - General Family Medicine 10/25/19 documented as of this encounter
[2024-01-05] MEDS ORDERED: ONDANSETRON INJ 2 MG/ML 2 ML VIAL IV PRN (15:25)
[2024-01-05] MEDS ORDERED: MAGNESIUM HYDROXIDE SUSP 30 ML UDC PO PRN (15:25)
[2024-01-05] MEDS ORDERED: POLYETHYLENE (MIRALAX) 17 GM PACK PO PRN (15:25)
[2024-01-05] MEDS: ENOXAPARIN INJ 40 MG/0.4 ML SYR SQ SCH (17:09)
[2024-01-05] MEDS: ADVANCED PROBIOTIC 625 MG CAPSULE PO SCH (17:09)
[2024-01-05] MEDS: LACTATED RINGER'S 1,000 ML IV SCH (17:10)
[2024-01-05] MEDS: FAMOTIDINE 20 MG TAB PO SCH (22:07)
[2024-01-05] MEDS: linaCLOtide 72 MCG CAPSULE PO SCH (22:08)
[2024-01-05] MEDS: CETIRIZINE HCL 10 MG TABLET PO SCH (22:08)
[2024-01-05] MEDS: carBAMazepine XR 200 MG TABCR PO SCH (22:08)
[2024-01-05] MEDS: ROSUVASTATIN CALCIUM 20 MG TAB PO SCH (22:09)
[2024-01-05] MEDS: GABAPENTIN 100 MG CAP PO SCH (22:09)
[2024-01-05] MEDS: MIRTAZAPINE TAB 15 MG TAB PO SCH (22:10)
[2024-01-05] MEDS: ACETAMINOPHEN 325 MG TAB PO PRN (23:13)
--- OUTSIDE RECORDS SUMMARY | 2024-01-06 00:08 | External Medical Summary ---
Author Name Unknown Address Unknown Organization K01:[facility] [place] [address] [address] [facility] [address] Laboratory Report Ordering Provider Test Date Status LITZY BERGMAN 01/05/2024 09:00:00 Final Observation Date Value Abnormality Reference (Units ) Status WBC, Total 01/05/2024 09:00:00 7.31 4.00-10.80 (K/uL) Final RBC 01/05/2024 09:00:00 4.77 3.85-5.15 (M/uL) Final Hemoglobin 01/05/2024 09:00:00 15.3 12.0-15.3 (g/dL) Final HCT 01/05/2024 09:00:00 48.3 Above high normal 36.0-45.2 (%) Final MCV 01/05/2024 09:00:00 101.3 81.5-97.5 (fL) Final MCH 01/05/2024 09:00:00 32.1 27.0-34.0 (pg) Final MCHC 01/05/2024 09:00:00 31.7 32.0-36.0 (g/dL) Final RDW 01/05/2024 09:00:00 12.8 11.5-15.5 (%) Final Platelets 01/05/2024 09:00:00 182 140-400 (K/uL) Final MPV 01/05/2024 09:00:00 10.4 6.6-11.1 (fL) Final Nucleated erythrocytes/100 leukocytes [Ratio] in Blood by Automated count 01/05/2024 09:00:00 0 <=0 (/100 WBCs) Final Performing Location [facility] [place] [facility] [address] [facility] [address]
--- OUTSIDE RECORDS SUMMARY | 2024-01-06 00:08 | External Medical Summary | Summary of Care ---
Author Name Unknown Organization [facility] Address [address] [place] [address] Phone [phone] Care Team Providers Care Coat Baster Name Role Phone Nina Haile MD Primary Care Provide r Reason for Visit * Reason Onset Date Comments Complicated Acute Visit 01/05/2024 Encounter Details Date Type Department Care Team (Latest Contact Info) Description 01/05/2024 1:00 PM EDT Intermediate Visit [address] [address] Senait Granados PA-C [address] [place] [address] Fever, unspecified fever cause*; Lethargic; Grade III astrocytoma (HCC); Left hemiparesis (HCC); Seizure disorder (HCC); HTN, goal below 140/90; Subdural hygroma Allergies Active Allergy Reactions Criticality Noted Date Comments Cimetidine 05/29/1999 Hair thinning Cimetidine Unknown 12/19/2020 Erythromycin 09/08/2000 GI side effects Penicillins 05/29/1999 Phenytoin Sodium 05/29/1999 Rash, hives documented as of this encounter (statuses as of 01/05/2024) Medications Medication Sig Dispensed Refills Start Date [...] as of this encounter (statuses as of 01/05/2024) Active Problems Problem Noted Date Diagnosed Date [...] scanned into Electronic Medical Record LOC PRIM [id number] 12/03/1999 Esophageal reflux 05/29/1999 Idiopathic urticaria History of peptic ulcer disease Overview: ICD-10 update of inactive term Acquired hypothyroidism documented as of this encounter (statuses as of 01/05/2024) Resolved Problems Problem Noted Date Diagnosed Date [...] as of this encounter (statuses as of 01/05/2024) Immunizations Name Administration Dates Next Due Seasonal [...] Office Visit Allergy/Immunology [facility]var[facility] [address] [facility] [place] [address] Jhon Resendiz MD [address] [facility] [place] [address] 08/04/2024 3:30 PM EDT Telemedicine Hematology Oncology [address] [phone] Neida Hurtado MD Health Maintenance [...] as of this encounter Visit Diagnoses Diagnosis Fever, unspecified fever cause- Primary Lethargic Other malaise and fatigue Grade III astrocytoma (HCC) Malignant neoplasm of brain, unspecified site Left hemiparesis (HCC) Hemiplegia, unspecified, affecting unspecified side Seizure disorder (HCC) Unspecified epilepsy without mention of intractable epilepsy HTN, goal below 140/90 Unspecified essential hypertension Subdural hygroma Subdural hemorrhage documented in this encounter Advance Directives * [...] and were consensually agreed upon. Care Teams Coat Baster Relationship Specialty Start Date End Date Nina Haile MD [address] [place] [address] [place] [address] PCP - General Family Medicine 10/25/19 documented as of this encounter
--- OUTSIDE RECORDS SUMMARY | 2024-01-06 00:08 | External Medical Summary | Summary of Care ---
Author Name Unknown Organization [facility] Address [address] [facility] [place] [address] Phone [phone] Care Team Providers Care Credit Rating Checker Name Role Phone Nina Haile MD Primary Care Provide r Reason for Visit * Reason Comments Outpatient Testing Encounter Details Date Type Department Care Team (Late st Contact Info) Description 01/05/2024 9:20 AM EDT Laboratory Laboratory [address] [place] [address] Dr Specimen Drop Off [address] [place] [address] Fever Allergies Active Allergy Reactions Criticality Noted Date [...] scanned into Electronic Medical Record LOC PRIM [id number] 12/03/1999 Esophageal reflux 05/29/1999 Idiopathic urticaria History [...] MDV , IM, 0.5 mL (Fluzone) 03/01/2014,12/09/2010,11/22/2008, 008,01/16/2006,12/18/2004,12/18/2003, TDAP, Age 7 and older, IM (Adacel) [...] Contact Info) Description 01/05/2024 1:00 PM EDT [facility] Visit [facility] [address] [place] [address] Senait Granados PA-C [address] [place] [address] Fever, unspecified fever cause*; Lethargic; Grade III astrocytoma (HCC); Left hemiparesis (HCC); Seizure disorder (HCC); HTN, goal below 140/90; Subdural hygroma 05/26/2024 1:30 PM EDT Office [facility] [address] [facility] [place] [address] Jhon Resendiz MD [address] [place] [address] 08/04/2024 3:30 PM EDT Telemedicine Hematology Oncology [address] [phone] Neida Hurtado MD Pending Results Name Type Priority Associated Diagnoses Date /Time BASIC METABOLIC PANEL Lab Routine Fever 01/05/2024 9:00 AM EDT CBC WITH WBC DIFFERENTIAL Lab Routine Fever 01/05/2024 9:00 AM EDT CBC Lab Routine Fever 01/05/2024 9:00 AM EDT DIFFERENTIAL, AUTOMATED Lab Routine Fever 01/05/2024 9:00 AM EDT Health Maintenance Due Date Last Done Comments [...] Unspecified essential hypertension Subdural hygroma Subdural hemorrhage Fever Fever, unspecified documented in this encounter Advance [...] and were consensually agreed upon. Care Teams Credit Rating Checker Relationship Specialty Start Date End Date Nina Haile MD [address] [facility] [place] [address] PCP - General Family Medicine 10/25/19 documented as of this encounter
--- OUTSIDE RECORDS SUMMARY | 2024-01-06 00:08 | External Medical Summary ---
Author Name Unknown Address Unknown Organization K01:[facility] [place] - [address] [facility] [address] Laboratory Report Ordering Provider Test Date Status LITZY BERGMAN 01/05/2024 09:00:00 Final Observation Date Value Abnormality Reference (Units ) Status SYNC LEUKOCYTES IN BLOOD BY AUTOMATED COUNT 01/05/2024 09:00:00 7.31 4.00-10.80 (K/uL) Final Segs 01/05/2024 09:00:00 61.2 40.0-75.0 (%) Final Lymphs % 01/05/2024 09:00:00 33.5 18.0-42.0 (%) Final Monos 01/05/2024 09:00:00 4.9 1.0-11.0 (%) Final Eosinophils 01/05/2024 09:00:00 0.0 0.0-6.0 (%) Final Basos 01/05/2024 09:00:00 0.1 0.0-2.0 (%) Final Immature Granulocyte, Percent 01/05/2024 09:00:00 0.3 0.0-2.0 (%) Final Absolute Segs 01/05/2024 09:00:00 4.47 1.80-7.70 (K/uL) Final Lymphs, absolute 01/05/2024 09:00:00 2.45 1.00-4.80 (K/ul) Final Monos, Abs 01/05/2024 09:00:00 0.36 0.00-1.10 (K/uL) Final Eos, Abs 01/05/2024 09:00:00 0.00 0.00-0.70 (K/uL) Final Basos, Abs 01/05/2024 09:00:00 0.01 0.00-0.20 (K/uL) Final Immature Granulocytes, Number 01/05/2024 09:00:00 0.02 0.00-0.20 (K/uL) Final Performing Location [facility] [place] - [address] [facility] [address]
--- OUTSIDE RECORDS SUMMARY | 2024-01-06 00:08 | External Medical Summary | Summary of Care ---
Author Name Unknown Organization [facility] Address [address] [facility] [place] [address] Phone [phone] Care Team Providers Care Manager Combination Name Role Phone Nina Haile MD Primary Care Provide r Reason for Visit * Reason Comments Outpatient Testing Encounter Details Date Type Department Care Team (Late st Contact Info) Description 01/05/2024 9:20 AM EDT Laboratory Laboratory [address] [place] [address] Dr Specimen Drop Off [address] [place] [address] Fever Allergies Active Allergy Reactions Criticality Noted [...] scanned into Electronic Medical Record LOC PRIM [id number] 12/03/1999 Esophageal reflux 05/29/1999 Idiopathic urticaria History [...] Contact Info) Description 01/05/2024 1:00 PM EDT [facility] [address] [place] [address] Senait Granados PA-C [address] [place] [address] Fever, unspecified fever cause*; Lethargic; Grade III astrocytoma (HCC); Left hemiparesis (HCC); Seizure disorder (HCC); HTN, goal below 140/90; Subdural hygroma 05/26/2024 1:30 PM EDT [facility] [address] [place] [address] Jhon Resendiz MD [address] [place] [address] 08/04/2024 3:30 PM EDT Telemedicine Hematology Oncology [address] [address] Neida Hurtado MD Pending Results [...] and were consensually agreed upon. Care Teams Manager Combination Relationship Specialty Start Date End Date Nina Haile MD 100 [place] [address] PCP - General Family Medicine 10/25/19 documented as of this encounter
[2024-01-06] MEDS: LEVOTHYROXINE SODIUM 50 MCG TABLET PO SCH (06:46)
[2024-01-06] MEDS: PANTOprazole 40 MG TAB PO SCH (06:46)
[2024-01-06 07:46] LABS: Hematocrit (blood only) 43.5 % (37.0-47.0); Hemoglobin 14.2 g/dl (12.0-16.0); Mean Corpuscular Hemoglobin 31.5 pg (25.0-34.0); Mean Corpuscular Hgb Conc 32.6 g/dL (32.0-36.0); Mean Corpuscular Volume 96.5 fL (80.0-100.0); Mean Platelet Volume 10.4 fL (9.4-12.4); Platelet Count 143 K/uL (130-400); RDW Coefficient of Variation 12.8 % (11.5-14.5); RDW Standard Deviation 45.7 fL (36.4-46.3); Red Blood Count 4.51 M/uL (4.20-5.40); White Blood Count 5.84 K/ul (4.8-10.8)
[2024-01-06 07:57] LABS: Albumin Globulin Ratio 1.3 (0.9-2); Albumin Level 3.9 gm/dl (3.4-5.0); BUN Creatinine Ratio 31.1 (10-20); Bilirubin,Total 0.5 mg/dl (0.2-1.0); Calcium 8.9 mg/dl (8.6-10.3); Creatinine Clr Calc Pharmacy 96.5 ml/min; Globulin 3.1 gm/dl (2.5-4.0); Phosphorus 4.2 mg/dl (2.5-4.9); Potassium 4.2 mmol/L (3.5-5.1)
[2024-01-06] MEDS: CHOLECALCIFEROL 25 MCG (1000 UNITS) TAB PO SCH (09:53)
[2024-01-06] MEDS: MULTIVITAMIN TAB PO SCH (09:53)
--- NOTE | 2024-01-06 09:53 | Hospitalist Progress Note ---
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 Metabolic Encephalopathy Acute UTI: AMS likely 2/2 acute UTI. Already resolving Head CT negative. Continue IV rocephin, Day #2, lactobacillus Urine and blood culture pending Chronic Hypernatremia: Sodium 148 on admission, baseline sodium level ~147-152 per chart review. Likely 2/2 poor po intake S/P IVF, improved Hx of CVA with residual deficit continue asa, statin advance diet, pt on thickened liquids HLD: chronic, stable continue meds Other Chronic Medical Conditions:hypothyroidism, HTN, esophageal reflux, seizure disorder, seasonal allergies, etc. --> Can continue/resume home medications as able. DVT Prophylaxis: SQ Lovenox Code Status: DNR/DNI - PCP: Nina Haile MD Disposition: Admit to Med/Surg tele, will down grade to med/surg as no tele events overnight Patient's daughter, Bettie, would like daily updates regarding her mother's care. She can be reached at the following phone #: [phone]. She works at [employer]. I spent a total of 50 minutes coordinating, documenting, and providing care for this patient excluding time spent in the performance of separately billed services. This included personally reviewing all current laboratories and imaging studies, medical reconciliation, outpatient chart review and discussion with specialists. 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 She is being managed for the following: Acute complicated UTI Metabolic encephalopathy: Likely Secondary to above Admitting UA suggestive of UTI, urine culture positive for E. coli, admitting CT head with no acute finding. Continue with Rocephin 01/04, continue with probiotic. Follow admitting blood culture. Chronic hypernatremia: Chronic, stable. Admitting sodium of 148, status post IV fluid, appears resolved today. Baseline sodium level of 1 47-1 52 per chart review. Other chronic medical conditions: Continue with/resume home meds as and when able. History of CVA with residual deficit: Continue ASA, statin. Patient on thickened liquids and minced and moist diet. HLD: Chronic, stable, continue home statin. Hypothyroidism: Continue home levothyroxine HTN: Continue home amlodipine. GERD: Continue home omeprazole. Seizure disorder: Continue home carbamazepine. DVT Prophylaxis: SQ Lovenox Code Status: DNR/DNI - PCP: Nina Haile MD Disposition: likely dc christen once urine c/s out. Time spent: 30 min. Subjective NAEO. Pt feels improved from admission. She no longer feels confused. She denies f/c/s, chest pain, sob, n/v/d. Her appetite is ok. She is asking for advanced diet. Review of Systems Review of Systems: All systems reviewed & are unremarkable except as noted in HPI & below Physical Exam Physical Exam: Gen: WD/WN, elderly, F, NAD, A&O x3 HEENT: Normocephalic, atraumatic, conjunctivae moist, sclerae anicteric, mucous membranes moist. Lung: Clear to Auscultation bilaterally, no wheezes/rales/rhonchi Heart: Regular rate, regular rhythm, no murmurs, rubs, or gallops Abdomen: Soft, NT, ND +BS x 4 Extremities: No edema Skin: Warm, no rash, negative turgor. Results & Data Results & Data Vital Signs (Past 12 Hours) Vital Signs Temp Pulse Pulse Resp BP BP Pulse Ox 01/06/24 08:21 36.5 C 59 L 16 114/82 98 01/06/24 07:35 60 01/06/24 03:32 36.5 C 59 L 16 118/82 99 01/06/24 00:00 67 01/05/24 22:16 36.6 C 65 18 113/77 100 O2 Del Method O2 Flow Rate 01/06/24 08:21 Nasal Cannula 3 01/06/24 07:35 01/06/24 03:32 Nasal Cannula 3 01/06/24 00:00 01/05/24 22:16 Nasal Cannula 3 Laboratory Results Short CBC 01/05/24 01/06/24 Range/Units 10:30 07:19 WBC 6.85 5.84 (4.8-10.8) K/ul Hgb 14.9 14.2 (12.0-16.0) g/dl Hct 45.4 43.5 (37.0-47.0) % Plt Count 177 143 (130-400) K/uL BMP 01/05/24 01/06/24 10:30 07:19 Sodium 148 H 144 Potassium 3.8 4.2 Chloride 113 H 108 H Carbon Dioxide 27 28 BUN 20 19 Creatinine 0.81 0.61 Glucose 95 100 H Calcium 9.0 8.9 Liver Function 01/05/24 01/06/24 Range/Units 10:30 07:19 Total Bilirubin 0.6 0.5 (0.2-1.0) mg/dl AST 36 48 H (13-39) U/L ALT 16 19 (7-52) U/L Alkaline Phosphatase 127 H 124 H (34-104) U/L Albumin 3.9 3.9 (3.4-5.0) gm/dl Urine 01/05/24 Range/Units 11:23 Urine Color Dark Yellow Urine Appearance Cloudy A (Clear) Urine pH 5.0 (4.5-7.5) Ur Specific [place] 1.045 H (1.000-1.030) Urine Protein 1+ H (Negative) Urine Glucose (UA) Negative (Negative) Medications Administered Current Inpatient Medications Acetaminophen (Acetaminophen 325 Mg Tab) 650 mg PO Q4H PRN PRN Reason: Pain or Fever Stop: 02/04/24 15:24 Last Admin: 01/05/24 23:13 Dose: 650 mg Amlodipine Besylate (Amlodipine Besylate 5 Mg Tab) 2.5 mg PO QAM [facility] Stop: 02/05/24 08:59 Aspirin (Aspirin 81 Mg Ectab) 81 mg PO QAM [facility] Stop: 02/05/24 08:59 Carbamazepine (Carbamazepine Xr 200 Mg Tabcr) 200 mg PO BID [facility] Stop: 02/04/24 20:59 Last Admin: 01/05/24 22:08 Dose: 200 mg Cetirizine HCl (Cetirizine Hcl 10 Mg Tablet) 10 mg PO BID [facility] Stop: 02/04/24 20:59 Last Admin: 01/05/24 22:08 Dose: 10 mg Cyanocobalamin (Cyanocobalamin (B-12) 500 Mcg Tablet) 500 mcg PO QAM [facility] Stop: 02/05/24 08:59 Enoxaparin Sodium (Enoxaparin Inj 40 Mg/0.4 Ml Syr) 40 mg SQ Q24H [facility] Stop: 02/04/24 15:59 Last Admin: 01/05/24 17:09 Dose: 40 mg Famotidine (Famotidine 20 Mg Tab) 20 mg PO BID [facility] Stop: 02/04/24 20:59 Last Admin: 01/05/24 22:07 Dose: 20 mg Gabapentin (Gabapentin 100 Mg Cap) 100 mg PO HS [facility] Stop: 02/04/24 20:59 Last Admin: 01/05/24 22:09 Dose: 100 mg Ceftriaxone Sodium (Rocephin) 2,000 mg in 50 mls @ 100 mls/hr IV Q24H [facility] Stop: 01/16/24 12:59 Lactated Ringer's (Lr) 1,000 mls @ 80 mls/hr IV .[id number] [facility] Stop: 01/06/24 16:24 Last Admin: 01/06/24 06:53 Dose: 80 mls/hr Lactobacillus Acidophilus (Advanced Probiotic 625 Mg Capsule) 1,250 mg PO DAILY [facility] Stop: 02/04/24 15:24 Last Admin: 01/05/24 17:09 Dose: 1,250 mg Levothyroxine Sodium (Levothyroxine Sodium 50 Mcg Tablet) 50 mcg PO DAILYBB [facility] Stop: 02/05/24 06:29 Last Admin: 10/30/24 06:46 Dose: 50 mcg Linaclotide (Linaclotide 72 Mcg Capsule) 72 mcg PO HS [facility] Stop: 02/04/24 20:59 Last Admin: 01/05/24 22:08 Dose: 72 mcg Magnesium Hydroxide (Magnesium Hydroxide Susp 30 Ml Udc) 30 ml PO Q12H PRN PRN Reason: Constipation Stop: 02/04/24 15:24 Magnesium Oxide (Magnesium Oxide 400 Mg Tab) 400 mg PO QAM [facility] Stop: 02/05/24 08:59 Mirtazapine (Mirtazapine Tab 15 Mg Tab) 15 mg PO HS [facility] Stop: 02/04/24 20:59 Last Admin: 01/05/24 22:10 Dose: 15 mg Modafinil (Modafinil 100 Mg Tab) 200 mg PO QAM [facility] Stop: 02/05/24 08:59 Multivitamins (Multivitamin Tab) 1 tab PO QAM [facility] Stop: 02/05/24 08:59 Ondansetron HCl (Ondansetron Inj 2 Mg/Ml 2 Ml Vial) 4 mg IV Q6H PRN PRN Reason: Nausea Stop: 02/04/24 15:24 Pantoprazole Sodium ([facility] 40 Mg Tab) [facility]: 02/05/24 06:29 Last Admin: 01/06/24 06:46 Dose: 40 mg Polyethylene Glycol (Polyethylene (Miralax) 17 Gm Pack) 17 gm PO DAILY PRN PRN Reason: Constipation Stop: 02/04/24 15:24 Potassium Chloride (Potassium Chloride Crtab 20 Meq Tabcr) 20 meq PO DAILY [facility] Stop: 02/05/24 08:59 Rosuvastatin Calcium (Rosuvastatin Calcium 20 Mg Tab) 40 mg PO HS [facility] Stop: 02/04/24 20:59 Last Admin: 01/05/24 22:09 Dose: 40 mg Vitamin D (Cholecalciferol 25 Mcg (1000 Units) Tab) 25 mcg PO QAM [facility] Stop: 02/05/24 08:59 (1) UTI (urinary tract infection) Hematuria presence: without hematuria Urinary tract infection type: site unspecified Qualified Code(s): N39.0 - Urinary tract infection, site not specified
[2024-01-06] MEDS: ASPIRIN 81 MG ECTAB PO SCH (09:54)
[2024-01-06] MEDS: amLODIPine BESYLATE 5 MG TAB PO SCH (09:54)
[2024-01-06] MEDS: CYANOCOBALAMIN (B-12) 500 MCG TABLET PO SCH (09:54)
[2024-01-06] MEDS: MAGNESIUM OXIDE 400 MG TAB PO SCH (09:54)
[2024-01-06] MEDS: modafiniL 100 MG TAB PO SCH (09:58)
[2024-01-06] MEDS: POTASSIUM CHLORIDE CRTAB 20 MEQ TABCR PO SCH (09:58)
--- NOTE | 2024-01-06 11:48 | Electrocardiogram Report ---
Test Reason : Blood Pressure : */* mmHG Vent. Rate : 80 BPM Atrial Rate : 80 BPM P-R Int : 172 ms QRS Dur : 64 ms QT Int : 390 ms P-R-T Axes : 4 -29 169 degrees QTcB Int : 449 ms Normal sinus rhythm Minimal voltage criteria for LVH, may be normal variant possible Inferior infarct , age undetermined Anterolateral infarct (cited on or before 04-Jun-2022) Abnormal ECG When compared with ECG of 14-Jul-2022 19:27, T wave inversion now evident in Lateral leads Confirmed by Manuel Brandon ([id number]) on 01/06/2024 11:48:19 AM Referred By: REFERRED SELF Confirmed By: Manuel Brandon
[2024-01-06] MEDS: cefTRIAXone SODIUM 2,000 MG/50 ML BAG IV SCH (13:09)
[2024-01-06] MEDS: ACETAMINOPHEN 500 MG TAB PO SCH (14:35)
[2024-01-07 06:43] LABS: Hemoglobin 13.7 g/dl (12.0-16.0); Immature Granulocytes # (auto) 0.01 K/uL (0.01-0.20); Immature Granulocytes % (auto) 0.2 %; Lymphocytes # (auto) 1.88 K/uL (1.20-3.40); Lymphocytes % (auto) 38.4 %; Mean Corpuscular Hemoglobin 31.7 pg (25.0-34.0); Mean Corpuscular Hgb Conc 33.4 g/dL (32.0-36.0); Mean Corpuscular Volume 94.9 fL (80.0-100.0); Mean Platelet Volume 10.3 fL (9.4-12.4); Monocytes # (auto) 0.22 K/uL (0.11-0.59); Monocytes % (auto) 4.5 %; Neutrophils # (auto) 2.78 K/uL (1.40-6.50); Neutrophils % (auto) 56.9 %; Platelet Count 143 K/uL (130-400); RDW Coefficient of Variation 12.4 % (11.5-14.5); RDW Standard Deviation 43.2 fL (36.4-46.3); Red Blood Count 4.32 M/uL (4.20-5.40); White Blood Count 4.89 K/ul (4.8-10.8)
[2024-01-07] MEDS: SODIUM CHLORIDE 0.45 % 1,000 ML IV ONE (06:46)
[2024-01-07 06:57] LABS: BUN Creatinine Ratio 30.4 (10-20); Calcium 8.8 mg/dl (8.6-10.3); Creatinine Clr Calc Pharmacy 105.1 ml/min; Potassium 3.4 mmol/L (3.5-5.1)
--- NOTE | 2024-01-07 15:50 | Hospitalist Progress Note ---
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 She is being managed for the following: Acute complicated UTI Metabolic encephalopathy: Likely Secondary to above Admitting UA suggestive of UTI, urine culture positive for E. coli, admitting CT head with no acute finding. Continue with Rocephin 01/04, continue with probiotic. Follow admitting blood culture - [id number] Pending Urine c/s. Chronic hypernatremia: Chronic, stable. Admitting sodium of 148, status post IV fluid, appears resolved. Baseline sodium level of 147-152 per chart review. Other chronic medical conditions: Continue with/resume home meds as and when able. History of CVA with residual deficit: Continue ASA, statin. Patient on thickened liquids and minced and moist diet. HLD: Chronic, stable, continue home statin. Hypothyroidism: Continue home levothyroxine HTN: Continue home amlodipine. GERD: Continue home omeprazole. Seizure disorder: Continue home carbamazepine. DVT Prophylaxis: SQ Lovenox Code Status: DNR/DNI - PCP: Nina Haile MD Disposition: likely dc christen once urine c/s out. Admission and Anticipated Discharge Date Admission Date: January 05, 2024 Subjective Patient was seen and examined at bedside. Pt feels improved from admission. She no longer feels confused. She denies f/c/s, chest pain, sob, n/v/d. She reports eating okay and moving bowels okay. Physical Exam Physical Exam: Gen: WD/WN, elderly, F, NAD, A&O x3 HEENT: Normocephalic, atraumatic, conjunctivae moist, sclerae anicteric, mucous membranes moist. Lung: Clear to Auscultation bilaterally, no wheezes/rales/rhonchi Heart: Regular rate, regular rhythm, no murmurs, rubs, or gallops Abdomen: Soft, NT, ND +BS x 4 Extremities: No edema Skin: Warm, no rash, negative turgor. Results & Data Results & Data Vital Signs (Past 12 Hours) Vital Signs Temp Pulse Resp BP Pulse Ox O2 Del Method 01/07/24 11:43 Room Air 01/07/24 07:58 36.7 C 52 L 18 125/87 93 Room Air
[2024-01-07] MEDS: diphenhydrAMINE Capsule 25 MG CAP PO ONE (18:15)
[2024-01-08 06:07] LABS: Calcium 8.6 mg/dl (8.6-10.3); Magnesium 1.8 mg/dl (1.7-2.4); Potassium 4.5 mmol/L (3.5-5.1)
[2024-01-08 06:13] LABS: BUN Creatinine Ratio 24.6 (10-20); Creatinine Clr Calc Pharmacy 103.2 ml/min; Phosphorus 3.2 mg/dl (2.5-4.9)
[2024-01-08] MEDS: AZTREONAM 1,000 MG in DEXTROSE 5% MINI-B 100 ML IV SCH (13:21)
--- NOTE | 2024-01-08 15:36 | Hospitalist Progress Note ---
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 She is being managed for the following: Acute complicated UTI Metabolic encephalopathy: Likely Secondary to above Admitting UA suggestive of UTI, urine culture positive for E. coli, admitting CT head with no acute finding. Continue with Rocephin 01/04, continue with probiotic. pt noted to have hives likely 2/2 rocephin use so rocephin dc'd 01/07, pt put on aztreonam 01/07. Follow admitting blood culture - [id number] Pending Urine c/s. spoke w/ microbiology lab, c/s likely will be out by christen. Chronic hypernatremia: Chronic, stable. Admitting sodium of 148, status post IV fluid, appears resolved. Baseline sodium level of 147-152 per chart review. Other chronic medical conditions: Continue with/resume home meds as and when able. History of CVA with residual deficit: Continue ASA, statin. Patient on thickened liquids and minced and moist diet. HLD: Chronic, stable, continue home statin. Hypothyroidism: Continue home levothyroxine HTN: Continue home amlodipine. GERD: Continue home omeprazole. Seizure disorder: Continue home carbamazepine. DVT Prophylaxis: SQ Lovenox Code Status: DNR/DNI - PCP: Nina Haile MD Disposition: likely dc christen once urine c/s out. updated pt's dtr kayla over the phone 01/07, answered all her questions. Admission and Anticipated Discharge Date Admission Date: January 05, 2024 Subjective Patient was seen and examined at bedside. Pt feels improved from admission. She no longer feels confused. Pt happens to drink very less, pt encouraged to maintain adequate hydration. She denies f/c/s, chest pain, sob, n/v/d. She reports eating okay and moving bowels okay. Physical Exam Physical Exam: Gen: WD/WN, elderly, F, NAD, A&O x3 HEENT: Normocephalic, atraumatic, conjunctivae moist, sclerae anicteric, mucous membranes moist. Lung: Clear to Auscultation bilaterally, no wheezes/rales/rhonchi Heart: Regular rate, regular rhythm, no murmurs, rubs, or gallops Abdomen: Soft, NT, ND +BS x 4 Extremities: No edema Skin: Warm, no rash, negative turgor. Results & Data Results & Data Vital Signs (Past 12 Hours) Vital Signs Temp Pulse Resp BP Pulse Ox O2 Del Method 01/08/24 15:11 36.8 C 63 16 112/77 96 Room Air 01/08/24 07:50 Room Air 01/08/24 07:24 36.8 C 70 16 121/78 95 Room Air
[2024-01-08] MEDS ORDERED: Nursing to Pharmacy Communication SCH (23:15)
[2024-01-09] MEDS: ERTAPENEM 1000MG 1,000 MG/10 ML SYR IV SCH (10:15)
--- NOTE | 2024-01-09 16:21 | Hospitalist Progress Note ---
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 She is being managed for the following: Acute complicated UTI Metabolic encephalopathy: Likely Secondary to above Admitting UA suggestive of UTI, urine culture positive for E. coli, admitting CT head with no acute finding. Continue with Rocephin 01/04, continue with probiotic. pt noted to have hives likely 04/10 rocephin use so rocephin dc'd 01/07, pt put on aztreonam 01/07. Urine C/s finally out on 01/08, atb changed to ertapenem. Per IV team, pt is hard stick and can't get US guided peripheral iv line. d/w ID person investigator (fellow physician), OK to dc on bactrim to complete 7 d therapy. Iv ertapenem while inpatient. d/w cm, transport can't be arranged today, so likely dc christen. Follow admitting blood culture - [id number] Chronic hypernatremia: Chronic, stable. Admitting sodium of 148, status post IV fluid, appears resolved. Baseline sodium level of 147-152 per chart review. Other chronic medical conditions: Continue with/resume home meds as and when able. History of CVA with residual deficit: Continue ASA, statin. Patient on thickened liquids and minced and moist diet. HLD: Chronic, stable, continue home statin. Hypothyroidism: Continue home levothyroxine HTN: Continue home amlodipine. GERD: Continue home omeprazole. Seizure disorder: Continue home carbamazepine. DVT Prophylaxis: SQ Lovenox Code Status: DNR/DNI - PCP: Nina Haile MD Disposition: likely dc christen. updated pt's dtr kayla over the phone 01/07, answered all her questions. Admission and Anticipated Discharge Date Admission Date: January 05, 2024 Subjective Patient was seen and examined at bedside. Pt feels improved from admission. She no longer feels confused. Pt happens to drink very less, pt encouraged to maintain adequate hydration. She denies f/c/s, chest pain, sob, n/v/d. She reports eating okay and moving bowels okay. Physical Exam Physical Exam: Gen: WD/WN, elderly, F, NAD, A&O x3 HEENT: Normocephalic, atraumatic, conjunctivae moist, sclerae anicteric, mucous membranes moist. Lung: Clear to Auscultation bilaterally, no wheezes/rales/rhonchi Heart: Regular rate, regular rhythm, no murmurs, rubs, or gallops Abdomen: Soft, NT, ND +BS x 4 Extremities: No edema Skin: Warm, no rash, negative turgor. Results & Data Results & Data Vital Signs (Past 12 Hours) Vital Signs Temp Pulse Resp BP Pulse Ox O2 Del Method 01/09/24 15:00 36.9 C 62 16 104/69 93 Room Air 01/09/24 10:04 Room Air 01/09/24 07:33 36.4 C L 67 16 105/73 96 Room Air
--- NOTE | 2024-01-10 12:38 | Hospitalist Progress Note ---
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 She is being managed for the following: Acute complicated UTI Metabolic encephalopathy: Likely Secondary to above Admitting UA suggestive of UTI, urine culture positive for E. coli, admitting CT head with no acute finding. Continue with Rocephin 01/04, continue with probiotic. pt noted to have hives likely 2/ rocephin use so rocephin dc'd 01/07, pt put on aztreonam 01/07. Urine C/s finally out on 01/08, atb changed to ertapenem. Per IV team, pt is hard stick and can't get US guided peripheral iv line. d/w ID photonics technician (fellow physician), OK to dc on bactrim to complete 7 d therapy. Iv ertapenem while inpatient. d/w cm, transport can't be arranged today, so likely dc christen. Follow admitting blood culture - NG48H Chronic hypernatremia: Chronic, stable. Admitting sodium of 148, status post IV fluid, appears resolved. Baseline sodium level of 147-152 per chart review. Other chronic medical conditions: Continue with/resume home meds as and when able. History of CVA with residual deficit: Continue ASA, statin. Patient on thickened liquids and minced and moist diet. HLD: Chronic, stable, continue home statin. Hypothyroidism: Continue home levothyroxine HTN: Continue home amlodipine. GERD: Continue home omeprazole. Seizure disorder: Continue home carbamazepine. Plan for ADC once transportation is available. Likely tomorrow 01/10. A total of 45 minutes was spent on reviewing laboratory/diagnostic data/facilitating plan of care/discussion with consultants DVT Prophylaxis: SQ Lovenox Code Status: DNR/DNI - PCP: Nina Haile MD Admission and Anticipated Discharge Date Admission Date: January 05, 2024 Supervising Physician Co-Signing Physician Notes Patient seen and examined at bedside as a follow-up of acute complicated UTI/metabolic encephalopathy. Patient on ertapenem since 01/09/2024, to continue with ertapenem while inpatient, transition to oral Bactrim on discharge to complete 7-day therapy. Patient awaiting placement, CM to arrange transport. Once transport is arranged for, patient can be discharged. On exam: Patient lying on bed, on room air, not in acute distress, rest of the examination as above. Time spent: 15 minutes I have seen and examined the patient and have discussed the case with the provider above. I agree with the assessment and plan as stated. Subjective Patient was seen and examined at bedside. Pt feels improved from admission. She no longer feels confused. She denies any complaints. Review of Systems Review of Systems: All systems reviewed & are unremarkable except as noted in HPI & below Physical Exam Constitutional: WD/WN, vitals as above Eyes: PERRL, conjunctivae normal, anicteric sclerae ENMT: external ear and nose normal, oropharynx normal Neck: trachea midline, no thyromegaly Respiratory: normal respiratory effort, lungs clear to auscultation Cardiovascular: RRR, no murmur, no edema Gastrointestinal (Abdomen): normal bowel sounds, soft, nontender, no hepatosplenomegaly Musculoskeletal: no cyanosis or clubbing, extremities motor strength 5/5 Skin: no rashes, warm and dry Neurologic: PERRL, EOMI, accommodation nl, no face palsy, no dysarthria Lymphatic: no cervical or axillary lymphadenopathy Results & Data Results & Data Vital Signs (Past 12 Hours) Vital Signs Temp Pulse Resp BP Pulse Ox O2 Del Method 01/10/24 09:23 Room Air 01/10/24 08:14 36.7 C 66 16 117/81 94 Room Air Diagnostic Findings Laboratory Results WBC 4.89 K/ul (4.8-10.8) 01/07/24 05:52 RBC 4.32 M/uL (4.20-5.40) 01/07/24 05:52 Hgb 13.7 g/dl (12.0-16.0) 01/07/24 05:52 Hct 41.0 % (37.0-47.0) 01/07/24 05:52 MCV 94.9 fL (80.0-100.0) 01/07/24 05:52 MCH 31.7 pg (25.0-34.0) 01/07/24 05:52 MCHC 33.4 g/dL (32.0-36.0) 01/07/24 05:52 RDW Std Deviation 43.2 fL (36.4-46.3) 01/07/24 05:52 RDW Coeff of Claudio 12.4 % (11.5-14.5) 01/07/24 05:52 Plt Count 143 K/uL (130-400) 01/07/24 05:52 MPV 10.3 fL (9.4-12.4) 01/07/24 05:52 Immature Gran % (Auto) 0.2 % 01/07/24 05:52 Neut % (Auto) 56.9 % 01/07/24 05:52 Lymph % (Auto) 38.4 % 01/07/24 05:52 [place] % (Auto) 4.5 % 01/07/24 05:52 Eos % (Auto) 0.0 % 01/07/24 05:52 Baso % (Auto) 0.0 % 01/07/24 05:52 Neut # (Auto) 2.78 K/uL (1.40-6.50) 01/07/24 05:52 Lymph # (Auto) 1.88 K/uL (1.20-3.40) 01/07/24 05:52 [place] # (Auto) 0.22 K/uL (0.11-0.59) 01/07/24 05:52 Eos # (Auto) 0.00 K/uL (0.00-0.50) 01/07/24 05:52 Baso # (Auto) 0.00 K/uL (0.00-0.20) 01/07/24 05:52 Immature Gran # (Auto) 0.01 K/uL (0.01-0.20) 01/07/24 05:52 PT 12.4 Seconds (9.0-12.0) H 01/05/24 10:30 INR 1.2 (0.9-1.1) H 01/05/24 10:30 APTT 26 Seconds (21-31) 01/05/24 10:30 PTT Ratio 1.0 01/05/24 10:30 VBG pH 7.43 (7.36-7.41) H 01/05/24 10:38 VBG pCO2 44 mmHg (38-50) 01/05/24 10:38 VBG pO2 71 mmHg 01/05/24 10:38 VBG HCO3 29 mmol/L 01/05/24 10:38 VBG O2 Saturation 95.9 % 01/05/24 10:38 VBG Base Excess 4.2 mEq/L 01/05/24 10:38 Sodium 141 mmol/L (136-145) 01/08/24 05:28 Potassium 4.5 mmol/L (3.5-5.1) D 01/08/24 05:28 Chloride 112 mmol/L (98-107) H 01/08/24 05:28 Carbon Dioxide 19 mmol/L (21-32) L 01/08/24 05:28 Anion Gap 10 (3-11) 01/08/24 05:28 BUN 14 mg/dl (6-23) 01/08/24 05:28 Creatinine 0.57 mg/dl (0.6-1.2) L 01/08/24 05:28 Est Cr Clr Drug Dosing 103.2 ml/min 01/08/24 05:28 eGFR 102.68 01/08/24 05:28 BUN/Creatinine Ratio 24.6 (10-20) H 01/08/24 05:28 Glucose 85 mg/dl (70-99(Fasting)) 01/08/24 05:28 Lactate 1.2 mmol/L (0.4-2.0) 01/05/24 10:35 Calcium 8.6 mg/dl (8.6-10.3) 01/08/24 05:28 Phosphorus 3.2 mg/dl (2.5-4.9) D 01/08/24 05:28 Magnesium 1.8 mg/dl (1.7-2.4) 01/08/24 05:28 Total Bilirubin 0.5 mg/dl (0.2-1.0) 01/06/24 07:19 AST 48 U/L (13-39) H 01/06/24 07:19 ALT 19 U/L (7-52) 01/06/24 07:19 Alkaline Phosphatase 124 U/L (34-104) H 01/06/24 07:19 Troponin I High Sens 4.9 pg/ml (0-14) 01/05/24 10: Total Protein 7.0 gm/dl (6.0-8.3) 01/06/24 07:19 Albumin 3.9 gm/dl (3.4-5.0) 01/06/24 07:19 Globulin 3.1 gm/dl (2.5-4.0) 01/06/24 07:19 Albumin/Globulin Ratio 1.3 (0.9-2) 01/06/24 07:19 Procalcitonin 0.22 ng/ml (0-0.5) 01/05/24 10:30 Urine Color Dark Yellow 01/05/24 11:23 Urine Appearance Cloudy (Clear) A 01/05/24 11:23 Urine pH 5.0 (4.5-7.5) 01/05/24 11:23 Ur Specific [place] 1.045 (1.000-1.030) H 01/05/24 11:23 Urine Protein 1+ (Negative) H 01/05/24 11:23 Urine Glucose (UA) Negative (Negative) 01/05/24 11:23 Urine Ketones 1+ (Negative) H 01/05/24 11:23 Urine Blood 1+ (Negative) H 01/05/24 11:23 Urine Nitrite Negative (Negative) 01/05/24 11:23 Urine Bilirubin 1+ (Negative) H 01/05/24 11:23 Urine Urobilinogen Negative (Negative) 01/05/24 11:23 Ur Leukocyte Esterase Trace (Negative) H 01/05/24 11:23 Urine WBC (Auto) 21-50 /hpf (0-5) H 01/05/24 11:23 Urine RBC (Auto) 11-20 /hpf (0-2) H 01/05/24 11:23 U Hyaline Cast (Auto) >20 /lpf (0-2) H 01/05/24 11:23 U Epithel Cells (Auto) 6-10 /hpf (0-2) H 01/05/24 11:23 Urine Bacteria (Auto) 2+ (None Seen) H 01/05/24 11:23 Granular Casts Present /lpf (None Prsent) A 01/05/24 11:23 Adenovirus (PCR) Not Detected (NotDetected) 01/05/24 10:51 B. pertussis DNA (PCR) Not Detected (NotDetected) 01/05/24 10:51 B.parapertussis DNA PCR Not Detected (NotDetected) 01/05/24 10:51 C. pneumoniae DNA (PCR) Not Detected (NotDetected) 01/05/24 10:51 Coronavirus OC43 (PCR) Not Detected (NotDetected) 01/05/24 10:51 Coronavirus HKU1 (PCR) Not Detected (NotDetected) 01/05/24 10:51 Coronavirus 229E (PCR) Not Detected (NotDetected) 01/05/24 10:51 SARS-CoV-2 (PCR) Not Detected (NotDetected) 01/05/24 10:51 Coronavirus NL63 (PCR) Not Detected (NotDetected) 01/05/24 10:51 Human Metapneumovir PCR Not Detected (NotDetected) 01/05/24 10:51 Influenza Type A (PCR) Not Detected (NotDetected) 01/05/24 10:51 Influenza Type B (PCR) Not Detected (NotDetected) 01/05/24 10:51 M. pneumoniae (PCR) Not Detected (NotDetected) 01/05/24 10:51 Parainfluenza 1 (PCR) Not Detected (NotDetected) 01/05/24 10:51 Parainfluenza 2 (PCR) Not Detected (NotDetected) 01/05/24 10:51 Parainfluenza 3 (PCR) Not Detected (NotDetected) 01/05/24 10:51 Parainfluenza 4 (PCR) Not Detected (NotDetected) 01/05/24 10:51 RSV (PCR) Not Detected (NotDetected) 01/05/24 10:51 Entero/Rhino (PCR) Not Detected (NotDetected) 01/05/24 10:51 Impressions Chest X-Ray 01/05/24 10:20 XR chest 1V portable CLINICAL HISTORY: Sepsis COMPARISON STUDY: Chest radiograph July 24, 2022. FINDINGS: Patient is mildly rotated. Lung volumes are normal. Lungs are clear. There is no pneumothorax or pleural effusion. The cardiomediastinal silhouette is stable. There is no evidence for pulmonary edema. IMPRESSION: No acute cardiopulmonary findings. No significant change in appea ronna of the chest. ACT 112: Negative or not required by law. Electronically signed by: Omkar Ricci M.D. 01/05/2024 10:[address] 01/05/24 10:20 CT OF THE HEAD WITHOUT CONTRAST CLINICAL HISTORY: Altered mental status. COMPARISON STUDY: Head CT July 21, 2022 and MRI of the brain July 23, 2022 CT DOSE: 625.8 mGy.cm TECHNIQUE: Helical axial images of the head were obtained without IV contrast. Automated exposure control was utilized for the study. A dose lowering technique was utilized adhering to the principles of ALARA. FINDINGS: The right frontal CSF attenuation focus is unchanged. The ventricular system is stable. Basal cisterns are patent. There are no extra axial collections. Stable postoperative findings following right sided craniotomy are noted. No acute intracranial hemorrhage is present. There is no evidence for herniation. There are no findings to suggest acute dural sinus thrombosis or acute territorial infarct. Calcifications within the right basal ganglia are again noted. There has been no change in appearance of the brain. There are no calvarial fractures matter hypodensities are unchanged and favor small vessel disease IMPRESSION: No acute intracranial findings. No change in appearance of the brain. Stable postoperative findings. ACT 112: Negative or not required by law. Electronically signed by: Omkar Ricci M.D. 01/05/2024 11:15 AM (3) CVA (cerebral vascular accident) CVA mechanism: unspecified Qualified Code(s): I63.9 - Cerebral infarction, unspecified (4) GERD (gastroesophageal reflux disease) Esophagitis presence: esophagitis presence not specified Qualified Code(s): K21.9 - Gastro-esophageal reflux disease without esophagitis
[2024-01-10 19:36] VITALS: RESP 18; O2SAT 94
[2024-01-11 05:59] LABS: Hematocrit (blood only) 39.7 % (37.0-47.0); Hemoglobin 13.2 g/dl (12.0-16.0); Mean Corpuscular Hemoglobin 30.8 pg (25.0-34.0); Mean Corpuscular Hgb Conc 33.2 g/dL (32.0-36.0); Mean Corpuscular Volume 92.5 fL (80.0-100.0); Mean Platelet Volume 10.2 fL (9.4-12.4); Platelet Count 152 K/uL (130-400); RDW Coefficient of Variation 12.8 % (11.5-14.5); RDW Standard Deviation 43.8 fL (36.4-46.3); Red Blood Count 4.29 M/uL (4.20-5.40); White Blood Count 4.93 K/ul (4.8-10.8)
[2024-01-11 06:15] LABS: Albumin Globulin Ratio 1.2 (0.9-2); Albumin Level 3.2 gm/dl (3.4-5.0); Bilirubin,Total 0.4 mg/dl (0.2-1.0); Calcium 8.4 mg/dl (8.6-10.3); Creatinine Clr Calc Pharmacy 117.7 ml/min; Globulin 2.7 gm/dl (2.5-4.0); Potassium 3.6 mmol/L (3.5-5.1); Total Protein 5.9 gm/dl (6.0-8.3)
[2024-01-11 12:17] VITALS: BP 110/78; PULSE 64; TEMP 98.4
--- NOTE | 2024-01-11 12:23 | Discharge Summary ---
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 Please see below for management throughout hospitalization. Acute complicated UTI Metabolic encephalopathy: Likely Secondary to above Admitting UA suggestive of UTI, urine culture positive for E. coli, admitting CT head with no acute finding. Continue with Rocephin 01/04, continue with probiotic. pt noted to have hives likely / rocephin use so rocephin dc'd 01/07, pt put on aztreonam 01/07. Urine C/s finally out on 01/08, atb changed to ertapenem. Per IV team, pt is hard stick and can't get US guided peripheral iv line. d/w ID air conditioning engineer (fellow physician), OK to dc on bactrim to complete 7 d therapy. Iv ertapenem while inpatient. d/w cm, transport can't be arranged today, so likely dc christen. Follow admitting blood culture - NG48H Chronic hypernatremia: Chronic, stable. Admitting sodium of 148, status post IV fluid, appears resolved. Baseline sodium level of 147-152 per chart review. Other chronic medical conditions: Continue with/resume home meds as and when able. History of CVA with residual deficit: Continue ASA, statin. Patient on thickened liquids and minced and moist diet. HLD: Chronic, stable, continue home statin. Hypothyroidism: Continue home levothyroxine HTN: Continue home amlodipine. GERD: Continue home omeprazole. Seizure disorder: Continue home carbamazepine. The patient's labs/vitals are stable. She is stable for discharge to [facility] facility. The patient will be discharged on Bactrim for 4 more days. To complete a 7-day course for ESBL in the urine. She may to follow with her PCP within 1 week of discharge. She would need a repeat CMP in 2 days and also in a week after completion of Bactrim to monitor for JENIFER. 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 She is being managed for the following: Acute complicated UTI Metabolic encephalopathy: Likely Secondary to above Admitting UA suggestive of UTI, urine culture positive for E. coli, admitting CT head with no acute finding. Continue with Rocephin 01/04, continue with probiotic. pt noted to have hives likely 2/2 rocephin use so rocephin dc'd 01/07, pt put on aztreonam 01/07. Urine C/s finally out on 01/08, atb changed to ertapenem. Per IV team, pt is hard stick and can't get US guided peripheral iv line. d/w ID air conditioning engineer (fellow physician), OK to dc on bactrim to complete 7 d therapy. Iv ertapenem while inpatient. d/w cm, transport can't be arranged today, so likely dc christen. Follow admitting blood culture - NG48H Chronic hypernatremia: Chronic, stable. Admitting sodium of 148, status post IV fluid, appears resolved. Baseline sodium level of 147-152 per chart review. Other chronic medical conditions: Continue with/resume home meds as and when able. History of CVA with residual deficit: Continue ASA, statin. Patient on thickened liquids and minced and moist diet. HLD: Chronic, stable, continue home statin. Hypothyroidism: Continue home levothyroxine HTN: Continue home amlodipine. GERD: Continue home omeprazole. Seizure disorder: Continue home carbamazepine. Plan for ADC once transportation is available. Likely tomorrow 01/10. A total of 45 minutes was spent on reviewing laboratory/diagnostic data/facilitating plan of care/discussion with consultants DVT Prophylaxis: SQ Lovenox Code Status: DNR/DNI - PCP: Nina Haile MD Notes For Next Care Provider Medication Changes From Visit Bactrim on DC x 4 more days Admission HPI Per Admitting Provider Janay Kaplan is a 63y/o F with PMHx significant for dyslipidemia, acquired hypothyroidism, chronic hypernatremia, HTN, esophageal reflux, adult failure to thrive, left hemiparesis s/p CVA, grade III anaplastic oligoastrocytoma s/p resection + radiation [1996], subdural hygroma, chronic urticaria, DDD, benign paroxysmal vertigo of both ears, seizure disorder, acquired cerebral atrophy, depression, peptic ulcer disease and elevated liver enzymes who presented to the ED via EMS from [facility] for evaluation due to altered mental status. History obtained from phone conversation with [facility] staff + patient's daughter (Bettie) and associated chart review. Unable to obtain much history at all from the patient given her altered mental status. She did however sometimes answer yes/no to direct questions. Per [facility] staff, patient was acting more lethargic and confused starting this morning. She was also reported to have a fever of 101F. She was also not as conversive. Staff attempted to obtain a UA via straight catheterization this morning however they were unable to obtain a specimen, which therefore prompted her transportation to the ED for further evaluation. Patient is typically conversive at baseline however she is quite forgetful typically. Her daughter, Bettie, reports that she has been acting more "spacey" since Thursday. She was very concerned that she was developing a UTI as she is very prone to them and this is typically how her symptomatology begins. She only wears oxygen as needed. Patient is DNR/DNI status per conversation with her daughter and [facility] documentation. Updated Medication List Medication Instructions Recorded Confirmed Type cholecalciferol (vitamin D3) 25 1,000 unit PO QAM 06/06/18 01/05/24 History mcg (1,000 unit) capsule (Vitamin D3) cyanocobalamin (vitamin B-12) 500 500 mcg PO QAM 06/06/18 01/05/24 History mcg tablet (Vitamin B-12) gabapentin 300 mg capsule 100 mg PO HS 06/06/18 01/05/24 History (Neurontin) levothyroxine 50 mcg tablet 50 mcg PO DAILYBB 06/06/18 01/05/24 History (Synthroid) linaclotide 72 mcg capsule 72 mcg PO HS 06/06/18 01/05/24 History (Linzess) multivitamin 1 tab PO QAM 06/06/18 01/05/24 History acetaminophen 500 mg tablet 500 mg PO TID 12/20/18 01/05/24 History amlodipine 5 mg tablet (Norvasc) 2.5 mg PO QAM 12/19/20 01/05/24 History aspirin 81 mg tablet,delayed 81 mg PO QAM 12/19/20 01/05/24 History release cetirizine 10 mg tablet 10 mg PO BID 12/19/20 01/05/24 History modafinil 200 mg tablet 200 mg PO QAM 12/19/20 01/05/24 History omeprazole 20 mg capsule,delayed 20 mg PO DAILYBB 12/19/20 01/05/24 History release potassium chloride 20 mEq 20 meq PO DAILY 12/19/20 01/05/24 History tablet,extended release rosuvastatin 40 mg tablet 40 mg PO HS 12/19/20 01/05/24 History mirtazapine 15 mg tablet 15 mg PO HS 06/04/22 01/05/24 History Magic Mix 1 applic topical TID 07/14/22 01/05/24 History carbamazepine 200 mg 200 mg PO BID 07/14/22 01/05/24 History capsule,extended release [id number] magnesium oxide 400 mg (241.3 mg 400 mg PO QAM #30 tabs 07/25/22 01/05/24 Rx magnesium) tablet famotidine 20 mg tablet 20 mg PO BID 01/05/24 01/05/24 History hydroxyzine HCl 10 mg tablet 20 mg PO QID 01/05/24 01/05/24 History sulfamethoxazole 800 1 tab PO BID 4 days #8 tabs 01/11/24 Rx mg-trimethoprim 160 mg tablet (Bactrim DS) Hospital Stay Data Consultations 01/05/24 13:31 ED Decision to Admit Stat Diagnostic Imagining Performed 01/05/24 10:20 CT head/brain wo con Stat Pending Results Patient Have Any Pending Studies at Discharge: Yes Discharge Instructions Given to Patient (Per Discharging Provider) Please follow with your PCP within a week of discharge. You are being discharged on Bactrim for a UTI to complete a total 7 days of treatment The patient has 4 days left of treatment. Please check CMP in 2 days and again after completion of Bactrim to monitor kidney function. Return back to the ER with worsening symptoms. Total Time Total Time Spent Total Time Spent (In Minutes): 60 Total Time Includes: Examination of the Patient, Discharge Planning, Medication Reconciliation and Communication With Other Providers Supervising Physician Co-Signing Physician Notes Patient seen and examined at bedside as a follow-up of acute complicated UTI/metabolic encephalopathy. Patient on ertapenem since 01/09/2024, to continue with ertapenem while inpatient, transition to oral Bactrim on discharge to complete 7-day therapy. Patient being dc'd to [facility]. On exam: Patient lying on bed, on room air, not in acute distress, rest of the examination as above. Time spent: 15 minutes I have seen and examined the patient and have discussed the case with the provider above. I agree with the assessment and plan as stated.
== END 2024-01-11 16:16 | DRG 689 ==
LOC: ED 10:11 → SUATTDRO 13:07 → EDINP 13:07 → 2N 15:25 → 3E 01-06 13:51

== ENCOUNTER 2024-03-06 13:59 | Inpatient (IN) ==
--- OUTSIDE RECORDS SUMMARY | 2024-03-06 14:07 | External Medical Summary | Summary of Care ---
Author Name Unknown Organization [facility] Address [address] [address] Phone [phone] Care Team Providers Care Senior Fire Protection Engineer Name Role Phone Nina Haile MD Primary Care Provide r Encounter Details Date Type Department Care Team (Late st Contact Info) Description 02/15/2024 Orders Only Lab Mobile Phlebotomy [facility] [address] [place] [address] Nina Haile MD [address] [place] [address] [place] [address] Hypernatremia* Allergies Active Allergy Reactions Criticality Noted Date Comments Cimetidine 05/29/1999 Hair thinning Cimetidine Unknown 12/19/2020 Erythromycin 09/08/2000 GI side effects Penicillins 05/29/1999 Phenytoin Sodium 05/29/1999 Rash, hives documented as of this encounter (statuses as of 02/15/2024) Medications carBAMazepine ER (CARBATROL) 100 MG CP12 Take 2 Capsules by mouth in the morning and 2 Capsules before bedtime. (0900/2100).. 60 Cap 9 Active linaclotide (LINZESS) 72 MCG CAPS 1 Capsule every night at bedtime. 30 Cap 9 Active levothyroxine (LEVOXYL) 50 MCG Tablet Take 1 Tablet by mouth daily first thing in the morning. (at least 30 min prior to breakfast or other meds) 30 Tab 9 Active Multiple Vitamin (MULTI-DAY VITAMINS) Tablet Take 1 Tab by mouth daily. (0900). 30 Tab 9 Active triamcinolone acetonide (ARISTOCORT) 0.1 % creamIndication s:Dermatitis Apply to rash on the arms and legs twice daily as needed for flares or itching. 80 g 1 9 Active aspirin enteric coated 81 MG TBEC Take 1 Tablet by mouth in the morning. (0900).. 100 Tab 9 Active Camphor-Menthol 0.5-0.5 % External Lotion Apply topically to affected area every 2 hours as needed for Itching. 222 mL Active Emollient (CETAPHIL MOISTURIZING) CREA Apply topically to affected area. Apply from head to toe every day in the morning. Active cetirizine (ZYRTEC) 10 MG Tablet One tablet twice daily; every 12 hrs 60 Tab 6 9 Active Omeprazole 20 MG Oral Capsule Delayed Release Take 1 Capsule by mouth in the morning. (0630).. 30 Cap 0 Active Cyanocobalamin (VITAMIN B 12) 500 MCG TABS Take 500 mcg by mouth in the morning. Active Rosuvastatin Calcium 40 MG Oral Tablet Take 1 Tablet by mouth in the morning. 30 Tab 5 0 Active Sennosides-Docu sate Sodium 8.6-50 MG Oral Tablet Take 1 Tablet by mouth in the morning and 1 Tablet before bedtime. 1 Active amLODIPine Besylate 5 MG Oral Tablet Take 0.5 Tablets by mouth in the morning. (0900).. 30 Tab 1 Active Boost Oral Liquid 2 Active Magnesium Oxide 400 (240 Mg) MG Oral Tablet (Mag-Ox) Take 1 Tablet by mouth in the morning. 3 Active Vitamin D3 25 MCG (1000 UT) Oral Tablet (Vitamin D3) Take 1 Tablet by mouth in the morning. 3 Active Potassium Chloride Sharda ER 20 MEQ Oral Tablet Extended Release Take 1 Tablet by mouth every afternoon. 3 Active Acetaminophen 500 MG Oral Tablet (Tylenol) Take 1 Tablet by mouth 3 times a day. (0900/1300/170 0). 3 Active Modafinil 200 MG Oral Tablet (Provigil) Take 1 Tablet by mouth in the morning. 30 Tablet 5 4 Active Gabapentin 100 MG Oral Capsule (Neurontin) Take 1 Capsule by mouth at bedtime. 4 Active Mirtazapine 15 MG Oral Tablet (Remeron) Take 1 Tablet by mouth at bedtime. 4 Active Famotidine 20 MG Oral Tablet (Pepcid) Take 1 Tablet by mouth in the morning and 1 Tablet before bedtime. 4 Active hydrOXYzine HCl 10 MG/5ML Oral Syrup (Atarax) Take 10 mL by mouth in the morning and 10 mL at noon and 10 mL in the evening and 10 mL before bedtime. 4 Active Lidocaine 4 % External Patch (Aspercreme) Place 1 Patch topically on the skin daily. 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 History of kenny hole surgery 07/18/2019 Brain lesion 07/17/2019 Moderate episode of recurrent major depressive d isorder 02/16/2019 Chronic urticaria 02/15/2019 Overview (02/15/2019): since 09/2018 Benign paroxysmal vertigo of both ears 9 Subdural hygroma 05/31/2018 Left hemiparesis 05/26/2018 HTN, goal below 140/90 08/01/2010 Dyslipidemia, goal LDL below 130 08/01/2010 LOC PRIM [id number] 12/03/1999 Esophageal reflux 05/29/1999 Idiopathic urticaria History of peptic ulcer disease Overview (12/08/2016): ICD-10 update of inactive term Acquired hypothyroidism documented as of this encounter (statuses as of 02/15/2024) Resolved Problems Problem Noted Date Diagnosed Date Resolved Date Moderate protein-calorie malnutrition 06/25/2022 03/25/2023 Full code status 02/11/2022 01/12/2024 COVID-19 virus infection 12/03/202012/2020 Convulsions 02/16/2019 02/16/2019 Closed compression fracture of first lumbar vertebra 11/04/2018 2020 History of astrocytoma 05/28/201806/02 LOC (loss of consciousness) 05/26/2018 05/28/2018 History of seizure 05/26/2018 9 History of seizure disorder 07/31/2015 01/16/2021 Obesity, Class II, BMI 35-39 .9, isolated (see actual BMI) 06/04/2009 03/01/2014 Overview (06/04/2009): Per Obesity Taxonomy Dyslipidemia, goal to be determined 02/13/2009 08/01/2010 Overview (02/13/2009): Per Lipid Taxonomy. ADVANCE DIRECTIVE INFORMATION 06/23/2005 01/11/2024 Overview (06/23/2005): Yes, Patient instructed to provide copy of advance directive for provider to review and to be scanned into Electronic Medical Record Dyslipidemia, goal to be determined 06/21/2003 01/31/2009 Overview (01/31/2009): Per Lipid Taxonomy HYPERTENSION NOS 09/08/2000 08/01/2010 Overview (01/24/2009): Modified per HTN protocol #16. Myalgia and myositis 09/08/2000 019 OBESITY, UNSPECIFIED 05/29/1999 010 Overview (06/04/2009): Per Obesity Taxonomy Major depressive disorder Overview (12/30/2016): ICD-10 update of inactive term History of astrocytoma 06/21 Overview (09/08/2000): grade 3 malignant astrocytoma/ right frontal lobe Elevated liver enzymes 06/02 Overview (09/08/2000): mild alt and ast elevation PURE HYPERCHOLESTEROLEM 10/2008 Overview (02/13/2009): Per Lipid Taxonomy. Convulsions 06/02/2018 BMI 36.0-36.9,adult 06/03/19 19 documented as of this encounter (statuses as of 02/15/2024) Immunizations Name Administration Dates Next Due Seasonal [...] drink = 0.6 oz pur e alcohol) Comments No Sex and Gender Information Value Date Recorded Sex Assigned at Not on file Legal Sex Female 5:28 AM EST Gender Identity Not on file Sexual Orientation Not on file Occupation Industry Job Start Date Job End Date disabled Not on file Not on file Not on file documented as of this encounter Functional Status * Are you deaf or do you have serious difficulty hearing? Answer Date of Assessment Author No 07/14/2019 2:46 PM ULISEST Altagracia Man RN * Are you blind or do you have serious difficulty seeing, even when wearing glasses? Answer Date of Assessment Author No 07/14/2019 2:46 PM ULISEST Altagracia Man RN * Do you have serious difficulty walking or climbing stairs? (5 years old or older) Answer Date of Assessment Author Yes 07/16/2019 1:58 PM EDT Dominique Gonzalez LSW * Do you have difficulty dressing or bathing? (5 years old or older) Answer Date of Assessment Author Yes 07/14/2019 2:46 PM EDT Altagracia Man RN * Because of a physical, mental, or emotional condition, do you have difficulty doing errands alone such as visiting a doctors office or shopping? (15 years old or older) Answer Date of Assessment Author Yes 07/14/2019 2:46 PM EDT Altagracia Man RN documented as of this encounter Mental Status * Because of a physical, mental, or emotional condition, do you have serious difficulty concentrating, remembering, or making decisions? (5 years old or older) Answer Entry Date Author No 07/14/2019 2:46 PM EDT Altagracia Man RN documented in this encounter Plan of Treatment Upcoming Encounters Date Type Department Care Team (Late st Contact Info) Description 02/15/2024 5:30 AM EST Laboratory Lab Mobile Phlebotomy [facility] [address] [facility] [place] [address] [place] [address] 05/26/2024 1:30 PM EDT Office Visit Allergy/Immunology [facility] [place] [address] [facility] [place] [address] Jhon Resendiz MD [address] [facility] [place] [address] 08/04/2024 3:30 PM EDT Telemedicine Hematology Oncology [address] [phone] Neida Hurtado MD Scheduled Orders Name Type Priority Associated Diagnoses Orde r Schedule BASIC METABOLIC PANEL Lab Routine Hypernatremia Expected: 02/15/2024, Expires: 02/14/2025 Health Maintenance Due Date Last Done Comments Depression Monitoring 1973 HIV Screening 1976 Albumin/Creatinine Ratio 09/13/1979 HPV/Co-Test 09/13/1991 Cologuard 2006 Colonoscopy 2006 Colorectal Cancer Screening 2006 Fecal Occult Blood Test 2006 Sigmoidoscopy 2006 Zoster Vaccines (1 of 2) 09/13/2011 DTap/Tdap Vaccines (2 - Td or Tdap) 04/25/2018 04/25/2008 Mammogram 01/03/2022 01/03/2021, 06/08, 05/28/2011, Additional history exists COVID-19 Vaccine ( season) 2023 01/06/2023, 12/19/2021, 09/23/2021, Additional history exists Influenza Vaccine (FLU shot) (#1) 2023 12/24/2022, 12/29/2021, 12/26/2016, Additional history exists Cervical Cancer Screening 02/06/2024 Pap Smear 02/06/2024 02/05/2021, 03/0 09/2011, 03/11/2010, Additional history exists TSH 11/29/2024 11/30/2023, 05/07, 06/25/2022, Additional history exists GFR 01/14/2025 01/15/2024, 12/08, 12/11/2023, Additional history exists Diabetes Screening 01/14/2027 01/15/2024, 1 , 12/11/2023, Additional history exists Lipid Panel 05/19/2028 05/20/2023, [...] and were consensually agreed upon. Care Teams Senior Fire Protection Engineer Relationship Specialty Start Date End Date Nina Haile MD [address] [place] [address] [place] [address] PCP - General Family Medicine 10/25/19 documented as of this encounter
--- OUTSIDE RECORDS SUMMARY | 2024-03-06 14:07 | External Medical Summary | Summary of Care ---
Author Name Unknown Organization [facility] Address [address] [place] [address] Phone [phone] Care Team Providers Care Heel Painter Name Role Phone Nina Haile MD Primary Care Provide r Reason for Visit * Reason Onset Date Comments Appointment 01/19/2024 Encounter Details Date Type Department Care Team (Late st Contact Info) Description 01/19/2024 Telephone Hematology Oncology [facility] [place] [address] [place] [address] Neida Hurtado MD Appointment Allergies Active Allergy Reactions Criticality Noted Date [...] goal LDL below 130 08/01/2010 LOC PRIM [id number] 12/03/1999 Esophageal reflux 05/29/1999 Idiopathic urticaria History [...] of Assessment Author No 07/14/2019 2:46 PM EDT Altagracia Man RN * Are you blind or do you have serious difficulty seeing, even when wearing glasses? Answer Date of Assessment Author No 07/14/2019 2:46 PM ULISEST Altagrac[place] Man RN * Do you have serious difficulty walking or climbing stairs? (5 years old or older) Answer Date of Assessment Author Yes 07/16/2019 1:58 PM EDT Dominique Gonzalez, RETIREMENT ASSISTANT * Do you have difficulty dressing or [...] Altagracia Man RN documented in this encounter Miscellaneous Notes * Telephone Encounter - Tish Mendez OSA - 02/15/2024 2:54 PM EST Left message for Kelsy Matute to call us and reschedule the 08/04 appointment from [place] to A new return in person with Dhaval or [facility] in [place]., * Telephone Encounter - Marbella Mirza OSA - 01/19/2024 10:13 AM EST Called SNF to cancel upcoming appt with Dr. Hurtado and to schedule a New Ret appt in [place] office, since Dr. Hurtado left [facility]. documented in this encounter Plan of Treatment Upcoming Encounters Date Type Department Care Team (Late st Contact Info) Description 05/26/2024 1:30 PM EDT Office Visit Allergy/Immunology [facility] [address] [place] [address] Jhon Resendiz MD [address] [place] [address] 08/04/2024 3:30 PM EDT Telemedicine Hematology Oncology [address] [phone] Neida Hurtado MD Health Maintenance [...] 02/05/2021, 0309/2011, 03/11/2010, Additional history exists TSH 11/29/2024 11/30/2023, 05/07, 06/25/2022, Additional history exists GFR 02/14/2025 02/15/2024, 1110/2023, 01/05/2024, Additional history exists Diabetes Screening 02/14/2027 02/15/2024, 1 03/16/2023, 01/05/2024, Additional history exists Lipid Panel 05/19/2028 05/20/2023, [...] and were consensually agreed upon. Care Teams Heel Painter Relationship Specialty Start Date End Date Nina Haile MD [address] [place] [address] PCP - General Family Medicine 10/25/19 documented as of this encounter
--- OUTSIDE RECORDS SUMMARY | 2024-03-06 14:07 | External Medical Summary | Summary of Care ---
Author Name Unknown Organization [facility] Address [address] [place] [address] Phone [phone] Care Team Providers Care Posting Specialist Name Role Phone Nina Haile MD Primary Care Provide r Reason for Visit * Reason Onset Date Comments Fpc Visit 02/17/2024 Regulatory Encounter Details Date Type Department Care Team (Latest Contact Info) Description 02/17/2024 9:30 AM EST [facility] Visit [facility] at [address] [place] [address] Nina Haile MD [address] [place] [address] [place] [address] Chronic urticaria*; Left hemiparesis (HCC); Moderate episode of recurrent major depressive disorder (HCC); Grade III astrocytoma (HCC); Excessive sleepiness; Acquired hypothyroidism; Subdural hygroma; Seizure disorder (HCC); Acquired cerebral atrophy (HCC); Adult failure to thrive; History of peptic ulcer disease Allergies Active Allergy Reactions Criticality Noted Date Comments Cimetidine 05/29/1999 Hair thinning Cimetidine Unknown 12/19/2020 Erythromycin 09/08/2000 GI side effects Penicillins 05/29/1999 Phenytoin Sodium 05/29/1999 Rash, hives documented as of this encounter (statuses as of 02/17/2024) Medications carBAMazepine ER (CARBATROL) 100 MG CP12 Take 2 Capsules by mouth in the morning and 2 Capsules before bedtime. (899/2099).. 60 Cap 9 Active linaclotide (LINZESS) 72 [...] as of this encounter (statuses as of 02/17/2024) Active Problems Problem Noted Date Diagnosed Date [...] goal LDL below 130 08/01/2010 LOC PRIM [id number] 12/03/1999 Esophageal reflux 05/29/1999 Idiopathic urticaria History of peptic ulcer disease Overview (12/08/2016): ICD-10 update of inactive term Acquired hypothyroidism documented as of this encounter (statuses as of 02/17/2024) Resolved Problems Problem Noted Date Diagnosed Date [...] as of this encounter (statuses as of 02/17/2024) Immunizations Name Administration Dates Next Due Seasonal [...] 2:46 PM EDT Altagracia Man RN * Do you have serious difficulty walking or climbing stairs? (5 years old or older) Answer Date of Assessment Author Yes 07/16/2019 1:58 PM EDT Dominique Gonzalez LSW * Do you have difficulty dressing or bathing? (5 years old or older) Answer Date of Assessment Author Yes 07/14/2019 2:46 PM EDT Altagracai Man RN * Because of a physical, [...] Altagracia Man RN documented in this encounter Progress Notes * Nina Haile MD - 02/17/2024 4:05 PM EST Regulatory Visit TRANSITION EVENT: Type: Regulatory visit Date: February 16 Code Status: No Code Name: Janay Kaplan Date of : 1960 This note pertains to care provided at [facility]. Please see facility medical record for original note. This note is not to be edited or addended in [employer]. Editing or addending needs to occur in the facilities medical record. S: Janay Kaplan seen today as part of a regulatory visit. Has history of : Patient Active Problem List Diagnosis Esophageal reflux LOC PRIM [id number] Idiopathic urticaria History of peptic ulcer disease HTN, goal below 140/90 Dyslipidemia, goal LDL below 130 Acquired hypothyroidism Left hemiparesis (HCC) Subdural hygroma Benign paroxysmal vertigo of both ears Chronic urticaria Moderate episode of recurrent major depressive disorder (HCC) Brain lesion History of kenny hole surgery Grade III astrocytoma (HCC) Seizure disorder (HCC) Excessive sleepiness At high risk for aspiration Hypernatremia Acquired cerebral atrophy (HCC) Adult failure to thrive DDD (degenerative disc disease), lumbosacral DNR (do not resuscitate) Past Medical History: Diagnosis Date Acquired hypothyroidism [...] functon. LVEF 60 to 65%.mild LVH. [facility] CARPAL TUNNEL SURGERY Right 1991 right CHEST 1 VIEW 12/20/2018 pulmonary vascular congesion. trace pleural fluid left base. [facility] CRAN LOBE,NOT TEMPORAL,[place] right frontal lobectomy/malignant brain tumor CT HEAD/BRAIN WO CONTRAST 12/20/2018 no acute intracranial findings. [facility] CTA NECK W CONTRAST 12/20/2018 no significant occlusion, stenosis or dissection within carotid or vertebral arteries. mild scattered plaque formation. [facility] DILATION AND CURETTAGE (D&C) EKG 12/20/2018 NSR. LVH. no acute changes. [facility] LAPAROSCOPY;WITH BIOPSY times 3 Laparoscopy,w Lisa- Thursday LIGATE/CUT OVIDUCT(S) MAMMOGRAM SCREENING BILATERAL 04/03/2010 cat. 1, repeat in 12mths MAMMOGRAM SCREENING BILATERAL Bilateral 07/04/14 almost entirely fat, category 1 normal MICROSURGERY ADD-ON Right 07/14/2019 MICROSURGICAL SURGERY REQUIRING MICROSCOPE LISTED SEPARATELY performed by Pankaj Mejia MDat OR [facility] MRA HEAD W CONTRAST 12/20/2018 no signficant stenosis, occlusion or aneurysm wtih [place]. modeate midline shift to left unchanged from prior exam. [facility] MRI BRAIN WITH CONTRAST 12/20/2018 stable post surgical changes s/p right frontal craniotomy and resecton. no acute pathology. [facility] QUIROZ SKULL FOR BIOPSY Right 07/14/2019 KENNY HOLE BIOPSY OF BRAIN performed by Pankaj Mejia MD at OR [facility] RADIATION THERAPY DOSE PLAN,COMPLEX - 30 txs/cranium REMOVAL OF TONSILS, UNDER AGE 12 STEREOTACTIC CRANIAL INTRADURAL NAVIGATION Right 07/14/2019 STEREOTACTIC CRANIAL INTRADURAL NAVIGATION performed by Pankaj Mejia MD at OR [facility] UPPER GI ENDOSCOPY/EXAM neg test/naveen [...] Types: Cigarettes Quit date: 03/09/1991 Years since quittin.9 Smokeless tobacco: Never Tobacco comments: no passive [...] Social History Narrative Not on file Social Needs Financial Resource Strain: Not on file Food Insecurity: Not on file Transportation Needs: Not on file Social Connections: Not on file Housing Stability: Not on file Review of patient's allergies indicates: Allergen Reactions Cimetidine Hair thinning Cimetidine Unknown Erythromycin GI side effects Penicillins Phenytoin Sodium Rash, hives She is now having acute problem(s). Current problems include recent hospitalization from 01/05/24-03/12/23 with lethargy and fever and treated for UTI with IV antibiotics. CT scan of the brain with no new findings and stable chronic findings. Patient seen for flare of her chronic urticaria on 01/28/24 and treated with IM Solu-Medrol and prednisone with relief. She was seen 02/11/24 for lethargy noted by staff the day prior and occurred 2 days after receiving influenza and covid vaccines. Patient reports she is feeling much less tired today. Follows with allergy for chronic urticaria. Thought to be mainly autoimmune but triggered by stressand heat. Is on Zyrtec twice daily, famotidine twice daily, and routine hydroxyzine. Patient statesshe had a new hive on her right arm yesterday but resolved today. Is having pain issues. Pain being treated with routine Tylenol. Is not having behavioral problems. Results for orders placed or performed in visit on 02/15/24 BASIC METABOLIC PANEL Result Value Ref Range BUN 16 6 - 20 mg/dL CREATININE 0.6 0.5 - 1.0 mg/dL EGFR >90 >=60 mL/min SODIUM 147 (H) 135 - 146 mmol/L POTASSIUM 4.2 3.5 - 5.1 mmol/L CHLORIDE 113 (H) 98 - 107 mmol/L CO2 25 22 - 32 mmol/L ANION GAP 9 7 - 15 mmol/L GLUCOSE 86 70 - 120 mg/dL CALCIUM 8.6 8.4 - 10.2 mg/dL *Note: Due to a large number of results and/or encounters for the requested time period, some results have not been displayed. A complete set of results can be found in Results Review. Lab Results Component Value Date/Time TSH - [facility] 0.71 11/30/2023 05:30 AM TSH - [facility] 1.03 05/20/2023 05:46 AM TSH - [facility] 0.28 06/25/2022 05:00 AM TSH - [facility] 0.39 06/24/2019 01:26 AM TSH - [facility] 1.42 07/16/2018 05:47 AM TSH - [facility] 1.03 07/08/2016 10:17 AM CBC Results: Results for orders placed or performed in visit on 01/05/24 CBC Result Value Ref Range WBC 7.31 4.00 - 10.80 K/uL RBC 4.77 3.85 - 5.15 M/uL HGB 15.3 12.0 - 15.3 g/dL HCT 48.3 (H) 36.0 - 45.2 % MCV 101.3 81.5 - 97.5 fL MCH 32.1 27.0 - 34.0 pg MCHC 31.7 32.0 - 36.0 g/dL RDW 12.8 11.5 - 15.5 % PLT 182 140 - 400 K/uL MPV 10.4 6.6 - 11.1 fL nRBCs 0 <=0 /100 WBCs ROS: CONSTITUTIONAL: No change in weight, No fevers, sweats, or chills, and +weakness and chronic excessive sleepiness EYE: No recent significant change in vision and No eye pain, redness, discharge EARS: No ear pain, No drainage, No tinnitus or vertigo, and No recent change in hearing NOSE: No history of frequent colds or sinusitis, No nasal stuffiness, No history of Hay Fever, and No significant epistaxis MOUTH: No bleeding [...] heartburn, No significant change in appetite, No nausea, vomiting, diarrhea, or constipation, No hematemesis, No blood in stools or black tarry stools, and No abdominal bloating or early satiety FEMALE: No dysuria and No frequency HEMATOLOGIC: No coagulation disorder, No anemia, No abnormal bleeding, No chills, and No weight loss EXTREMITIES: No pain, redness or swelling on the joints SKIN/INTEGUMENTARY: +as above NEUROLOGIC: +seizure disorder, left hemiparesis due to remote astrocytoma removal, +chronic excessive sleepiness PSYCHIATRIC: +depression and anxiety under treatment O: I reviewed the most recent facilities vitals. General: alert, no distress, well nourished, and well developed Head: Normocephalic, +postsurgical changes of scalp and +chronic alopecia Neuro: alert, cooperative, speech very slow, +left hemiparesis--all unchanged and appears baseline Eye Exam: PERRLA, extraocular movements intact, conjunctiva [...] Extremities: no edema, no clubbing, no cyanosis Skin: no active hives seen A: Chronic urticaria (Primary)--ongoing, likely idiopathic. Has flares. Following with allergy. Continue Zyrtec 10 mg twice daily, routine hydroxyzine for chronic itching and famotidine 20 mg twice daily. Steroids PRN flares. 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 Follows withoncology. Excessive sleepiness--chronic. Continue modafinil 200 mg daily. Acquired hypothyroidism--controlled with levothyroxine 50 mcg daily. Subdural hygroma--stable. Seizure disorder (HCC)--continue carbamazepine ER 200 mg twice daily. Acquired cerebral atrophy (HCC)--stable Adult failure to thrive--weight has been stable History of peptic ulcer disease--continue omeprazole 20 mg daily P: Medications reviewed. Please refer to MAR in the facility's medical record for the most up-to-date medication list. Continue present medication(s): Reviewed [facility] record for: vital signs, weight, bowel, and bladder function, and ADLs. Labs reviewed Continue current treatment plan as ordered Continue to follow up as needed and as scheduled Long Term Home Treatment Given: n/a Electronically signed by: Nina Haile MD I spent a total of 30-39 minutes (exact time 33 mins) on the date of service in preparation, delivery, and documentation of the care provided to Janay Kaplan excluding any time spent in the performance of separately billed services or time spent by another provider/QHP. documented in this encounter Plan of Treatment Upcoming Encounters Date Type Department Care Team (Late st Contact Info) Description 05/26/2024 1:30 PM EDT Office Visit Allergy/Immunology [facility] [address] [facility] [place] [address] Jhon Resendiz MD [address] [place] [address] 08/04/2024 9:00 AM EDT Office Visit Hematology/Oncology [facility] [address] [facility] [place] [id number] Michele Han MD [address] [facility] [place] [address] Health Maintenance Due Date Last Done Comments [...] 06/25/2022, Additional history exists GFR 02/14/2025 02/15/2024, 10/2023, 01/05/2024, Additional history exists Diabetes Screening 02/14/2027 [...] Diagnosis Chronic urticaria- Primary Other specified urticaria Left hemiparesis (HCC) Hemiplegia, unspecified, affecting unspecified side Moderate episode of recurrent major depressive disorder (HCC) Grade III astrocytoma (HCC) Malignant neoplasm of brain, unspecified site Excessive sleepiness Hypersomnia, unspecified Acquired hypothyroidism Unspecified hypothyroidism Subdural hygroma Subdural hemorrhage Seizure disorder (HCC) Unspecified epilepsy without mention of intractable epilepsy Acquired cerebral atrophy (HCC) Adult failure to thrive History of peptic ulcer disease Personal history of peptic ulcer disease documented in this encounter Advance Directives * [...] and were consensually agreed upon. Care Teams Posting Specialist Relationship Specialty Start Date End Date Nina Haile MD [address] [place], [place] [address] [address] PCP - General Family Medicine 10/25/19 documented as of this encounter
--- OUTSIDE RECORDS SUMMARY | 2024-03-06 14:07 | External Medical Summary ---
Author Name Unknown Address Unknown Organization [id number] [address] [place] [id number] Laboratory Report Ordering Provider Test Date Status RUSSELL CHOWDARY 02/15/2024 05:34:00 Final Observation Date Value Abnormality Reference (Units ) Status BUN 02/15/2024 05:34:00 16 6-20 (mg/dL) Final Creatinine 02/15/2024 05:34:00 0.6 0.5-1.0 (mg/dL) Final Glomerular filtration rate/1.73 sq M.predicted [Volume Rate/Area] in Serum, Plasma or Blood by Creatinine-based formula (CKD-EPI) 02/15/2024 05:34:00 >90 >=60 (mL/min) Final eGFR is calculated based on the CKD-EPI 2020 equation. Sodium 02/15/2024 05:34:00 147 Above high normal 13 5-146 (mmol/L) Final Potassium 02/15/2024 05:34:00 4.2 3.5-5.1 (m mol/L) Final Cl 02/15/2024 05:34:00 113 Above high normal 98 -107 (mmol/L) Final CO2 02/15/2024 05:34:00 25 22-32 (mmo l/L) Final Anion gap 02/15/2024 05:34:00 9 7-15 (mmol /L) Final Glucose 02/15/2024 05:34:00 86 70-120 (mg /dL) Final Calcium 02/15/2024 05:34:00 8.6 8.4-10.2 ( mg/dL) Final Performing Location [facility] [address] [place] [id number]
--- OUTSIDE RECORDS SUMMARY | 2024-03-06 14:08 | External Medical Summary | Summary of Care ---
Author Name Unknown Organization [facility] Address [address] [place] [address] Phone [phone] Care Team Providers Care Cuprous Chloride Operator Name Role Phone Nina Haile MD Primary Care Provide r Reason for Visit * Reason Onset Date Comments Skilled Visit 01/13/2024 Encounter Details Date Type Department Care Team (Latest Contact Info) Description 01/13/2024 7:30 AM EST Long-Term Visit [facility] [address] [facility] [place] [address] Senait Granados PA-C [address] [place] [address] Metabolic encephalopathy*; Acute UTI; Grade III astrocytoma (HCC); Seizure disorder (HCC) Allergies Active Allergy Reactions Criticality Noted Date Comments Cimetidine 05/29/1999 Hair thinning Cimetidine Unknown 12/19/2020 Erythromycin 09/08/2000 GI side effects Penicillins 05/29/1999 Phenytoin Sodium 05/29/1999 Rash, hives documented as of this encounter (statuses as of 01/13/2024) Medications Medication Sig Dispensed Refills Start Date [...] as of this encounter (statuses as of 01/13/2024) Active Problems Problem Noted Date Diagnosed Date [...] goal LDL below 130 08/01/2010 LOC PRIM [id number] 12/03/1999 Esophageal reflux 05/29/1999 Idiopathic urticaria History of peptic ulcer disease Overview: ICD-10 update of inactive term Acquired hypothyroidism documented as of this encounter (statuses as of 01/13/2024) Resolved Problems Problem Noted Date Diagnosed Date [...] determined 02/13/2009 08/01/2010 Overview: Per Lipid Taxonomy. ADVANCE DIRECTIVE INFORMATION 06/23/2005 01/11/2024 Overview: Yes, Patient instructed to provide copy [...] as of this encounter (statuses as of 01/13/2024) Immunizations Name Administration Dates Next Due Seasonal [...] PM EDT Office Visit Allergy/Immunology [facility] [place] [address] [facility] [place] [address] Jhon Resendiz MD [address] [facility] [place] [address] 08/04/2024 3:30 PM EDT Telemedicine Hematology Oncology [address] [phone] Neida Hurtado MD Health Maintenance [...] Cancer Screening 02/06/2024 Pap Smear 02/06/2024 02/05/2021, /0 09/2011, 03/11/2010, Additional history exists TSH 11/29/2024 11/30/2023, 05/07, 06/25/2022, Additional history exists GFR 01/04/2025 01/05/2024, 1006/2023, 12/07/2023, Additional history exists Diabetes Screening 01/04/2027 01/05/2024, 1 , 12/07/2023, Additional history exists Lipid Panel 05/19/2028 05/20/2023, [...] as of this encounter Visit Diagnoses Diagnosis Metabolic encephalopathy- Primary Acute UTI Urinary tract infection, site not specified Grade III astrocytoma (HCC) Malignant neoplasm of [...] and were consensually agreed upon. Care Teams Cuprous Chloride Operator Relationship Specialty Start Date End Date Nina Haile MD [address] [place], [place] [address] [address] PCP - General Family Medicine 10/25/19 documented as of this encounter
--- OUTSIDE RECORDS SUMMARY | 2024-03-06 14:08 | External Medical Summary | Summary of Care ---
Author Name Unknown Organization [facility] Address [address] [place] [address] Phone [phone] Care Team Providers Care Inspector Assemblies And Installations Name Role Phone Nina Haile MD Primary Care Provide r Reason for Visit * Reason Onset Date Comments Skilled Visit 01/22/2024 Encounter Details Date Type Department Care Team (Latest Contact Info) Description 01/22/2024 9:00 AM EST [facility] Visit [facility] [address] [place] [address] Senait Granados PA-C [address] [place] [address] Metabolic encephalopathy*; Acute UTI; Grade III astrocytoma (HCC) Allergies Active Allergy Reactions Criticality Noted Date Comments Cimetidine 05/29/1999 Hair thinning Cimetidine Unknown 12/19/2020 Erythromycin 09/08/2000 GI side effects Penicillins 05/29/1999 Phenytoin Sodium 05/29/1999 Rash, hives documented as of this encounter (statuses as of 01/22/2024) Medications carBAMazepine ER (CARBATROL) 100 MG CP12 [...] as of this encounter (statuses as of 01/22/2024) Active Problems Problem Noted Date Diagnosed Date [...] goal LDL below 130 08/01/2010 LOC PRIM [id number] 12/03/1999 Esophageal reflux 05/29/1999 Idiopathic urticaria History of peptic ulcer disease Overview (12/08/2016): ICD-10 update of inactive term Acquired hypothyroidism documented as of this encounter (statuses as of 01/22/2024) Resolved Problems Problem Noted Date Diagnosed Date [...] as of this encounter (statuses as of 01/22/2024) Immunizations Name Administration Dates Next Due Seasonal [...] of Assessment Author No 07/14/2019 2:46 PM Altagracia Edmonds RN * Are you blind or do you have serious difficulty seeing, even when wearing glasses? Answer Date of Assessment Author No 07/14/2019 2:46 PM Altagracia Edmonds RN * Do you have serious difficulty [...] documented in this encounter Progress Notes * Senait Granados PA-C - 01/22/2024 11:24 AM EST Name: Janay Kaplan Date of :1960 TRANSITION EVENT: Type: Skilled visit Date: January 21 Code Status: No Code This note pertains to care provided at [facility]. Please see facility medical record for original note. This note is not to be edited or addended in [employer] day [employer]. Editing or addending needs to occur in the facilities medical record. Subjective: Janay Kaplan is a 63 year old female. Patient being seen for skilled visit Chief Complaint Patient presents with Skilled Visit HPI: pt is readmitted back to SNF for LTC following hospitalization for acute metabolic encephalopathy and UTI. Recovered well. Back to baseline in mentation. No UTI signs or symptoms. Eating, drinking and sleeping OK. BMs ok. Vital signs stable. CBC Results: Results for [...] 11.1 fL nRBCs 0 <=0 /100 WBCs Hemoglobin Results: Lab Results Component Value Date/Time HGB 15.3 01/05/2024 09:00 AM HGB 12.7 12/04/2023 05:22 AM HGB 12.5 08/31/2023 05:27 AM HGB 13.7 10/14/2019 05:10 AM HGB 13.9 08/03/2019 05:45 AM HGB 14.1 07/15/2019 07:04 AM HGB 15.0 05/25/1996 03:50 PM Basic Panel Results: Results for orders placed or performed in visit on 01/15/24 BASIC METABOLIC PANEL Result Value Ref Range BUN 11 6 - 20 mg/dL CREATININE 0.7 0.5 - 1.0 mg/dL EGFR >90 >=60 mL/min SODIUM 141 135 - 146 mmol/L POTASSIUM 4.3 3.5 - 5.1 mmol/L CHLORIDE 107 98 - 107 mmol/L CO2 23 22 - 32 mmol/L ANION GAP 11 7 - 15 mmol/L GLUCOSE 79 70 - 120 mg/dL CALCIUM 8.5 8.4 - 10.2 mg/dL Creatinine Results: Lab Results Component Value Date/Time CREATININE - [facility] 0.7 01/15/2024 05:36 AM CREATININE - [facility] 0.8 01/05/2024 09:00 AM CREATININE - [facility] 0.7 12/11/2023 05:26 AM CREATININE - [facility] 0.6 03/21/2020 05:50 AM CREATININE - [facility] 0.6 10/14/2019 05:10 AM CREATININE - [facility] 0.7 07/15/2019 11:36 AM CREATININE - [facility] 0.7 05/25/1996 03:50 PM Potassium Results: Lab Results Component Value Date/Time POTASSIUM - [facility] 4.3 01/15/2024 05:36 AM POTASSIUM - [facility] 4.4 01/05/2024 09:00 AM POTASSIUM - [facility] 4.3 12/11/2023 05:26 AM POTASSIUM - [facility] SPECIMEN HEMOLYZED TEST NOT PERFORMED 03/21/2020 05:50 AM POTASSIUM - [facility] 3.7 10/14/2019 05:10 AM POTASSIUM - [facility] 4.0 07/15/2019 11:36 AM POTASSIUM - [facility] 4.5 05/25/1996 03:50 PM Sodium Results: Lab Results Component Value Date/Time SODIUM - [facility] 141 01/15/2024 05:36 AM SODIUM - [facility] 149 (H) 01/05/2024 09:00 AM SODIUM - [facility] 146 12/11/2023 05:26 AM SODIUM - [facility] 134 (L) 03/21/2020 05:50 AM SODIUM - [facility] 144 10/14/2019 05:10 AM SODIUM - [facility] 137 07/15/2019 11:36 AM SODIUM - [facility] 142 05/25/1996 03:50 PM Patient Active Problem List Diagnosis Esophageal reflux LOC PRIM [id number] Idiopathic urticaria History of peptic ulcer disease [...] [facility] CRAN LOBE,NOT TEMPORAL,ELEC Dr Weems [place] right frontal lobectomy/malignant brain tumor [...] SPALDING LAPAROSCOPY;WITH BIOPSY times 3 Laparoscopy,w Bx- DrGary Thursday LIGATE/CUT OVIDUCT(S) MAMMOGRAM SCREENING BILATERAL 04/03/2010 cat. 1, repeat in 12mths MAMMOGRAM SCREENING BILATERAL Bilateral 07/04/14 almost entirely fat, category 1 normal MICROSURGERY ADD-ON Right 07/14/2019 MICROSURGICAL SURGERY REQUIRING MICROSCOPE LISTED SEPARATELY [facility] MRA HEAD W CONTRAST 12/20/2018 no signficant stenosis, occlusion or aneurysm wtih port [place]. modeate midline shift to left unchanged from prior exam. [facility] MRI BRAIN WITH CONTRAST 12/20/2018 stable post surgical changes s/p right frontal craniotomy and resecton. no acute pathology. [facility] QUIROZ SKULL FOR BIOPSY Right 07/14/2019 KENNY HOLE BIOPSY OF BRAIN performed by Pankaj Mejia MD at OR [facility] RADIATION THERAPY DOSE PLAN,COMPLEX - 30 txs/cranium REMOVAL OF TONSILS, UNDER AGE 13 STEREOTACTIC CRANIAL INTRADURAL NAVIGATION Right 07/14/2019 STEREOTACTIC CRANIAL INTRADURAL NAVIGATION performed by Pankaj Mejia MD at OR [facility] UPPER GI ENDOSCOPY/EXAM neg test/naveen test neg. [...] Types: Cigarettes Quit date: 03/09/1991 Years since quittin.8 Smokeless tobacco: Never Tobacco comments: no passive [...] list as this cannot be edited in [place]. Review of Systems: Constitutional ROS: No change in weight, less weakness, less fatigue and No fevers, sweats, or chills [...] rash and No itching Neurologic ROS: see PMHx Psychiatric ROS: No depression, No anxiety [...] , no edema, no clubbing, no cyanosis Skin: skin color, texture, turgor are normal, no rashes or significant lesions ASSESSMENT: Metabolic encephalopathy (Primary) Stable mentation and mood curerntly Labs reviewed Continue present medications and dosages. Encourage oral fluids Acute UTI Resolved at this time Will follow Grade III astrocytoma (HCC) Stable from [place] standpoint Continue with oncology followup as directed PLAN: Reviewed CBC, BMP, Lytes and Continue present medication(s):as ordered. [facility] Home Treatment Given: as above Electronically signed by: Senait Granados PA-C Over 35 minutes were spent in this visit more than half the time was spent counselling or coordinating care. Cosigned by Nina Haile MD at 01/22/2024 11:38 AM EST documented in this encounter Plan of Treatment Upcoming Encounters Date Type Department Care Team (Late st Contact Info) Description 05/26/2024 1:30 PM EDT Office Visit Allergy/Immunology [facility] [address] [place] [address] Jhon Resendiz MD 200 [place] [address] 08/04/2024 3:30 PM EDT Telemedicine Hematology Oncology [address] [phone] Neida Hurtado MD Health Maintenance Due Date [...] and were consensually agreed upon. Care Teams Inspector Assemblies And Installations Relationship Specialty Start Date End Date Nina Haile MD [address] [place] [address] [place] [address] PCP - General Family Medicine 10/25/19 documented as of this encounter
--- OUTSIDE RECORDS SUMMARY | 2024-03-06 14:08 | External Medical Summary | Summary of Care ---
Author Name Unknown Organization [facility] Address [address] [facility] [place] [address] Phone [phone] Care Team Providers Care Specimen Accessioner Name Role Phone Nina Haile MD Primary Care Provide r Encounter Details Date Type Department Care Team (Late st Contact Info) Description 02/12/2024 Orders Only Lab Mobile Phlebotomy [facility] [address] [facility] [place] [address] Nina Haile MD [address] [place] [address] [place] [address] Hypernatremia* Allergies Active Allergy Reactions Criticality Noted Date Comments Cimetidine 05/29/1999 Hair thinning Cimetidine Unknown 12/19/2020 Erythromycin 09/08/2000 GI side effects Penicillins 05/29/1999 Phenytoin Sodium 05/29/1999 Rash, hives documented as of this encounter (statuses as of 02/12/2024) Medications carBAMazepine ER (CARBATROL) 100 MG CP12 [...] as of this encounter (statuses as of 02/12/2024) Active Problems Problem Noted Date Diagnosed Date [...] goal LDL below 130 08/01/2010 LOC PRIM [id number] 12/03/1999 Esophageal reflux 05/29/1999 Idiopathic urticaria History of peptic ulcer disease Overview (12/08/2016): ICD-10 update of inactive term Acquired hypothyroidism documented as of this encounter (statuses as of 02/12/2024) Resolved Problems Problem Noted Date Diagnosed Date [...] as of this encounter (statuses as of 02/12/2024) Immunizations Name Administration Dates Next Due Seasonal [...] Care Team (Late st Contact Info) Description 02/12/2024 5:00 AM EST Laboratory Lab Mobile Phlebotomy [facility] [address] [facility] [place] [address] [place] [address] Arrived 05/26/2024 1:30 PM EDT Office Visit Allergy/Immunology [facility] [place] [address] [facility] [place] [address] Jhon Resendiz MD 200 [facility] [place] [address] 08/04/2024 3:30 PM EDT Telemedicine Hematology Oncology [address] [phone] Neida Hurtado MD Scheduled Orders Name Type Priority Associated Diagnoses Orde r Schedule BASIC METABOLIC PANEL Lab Routine Hypernatremia Expected: 02/12/2024, Expires: 02/11/2025 Health Maintenance Due Date Last Done Comments [...] and were consensually agreed upon. Care Teams Specimen Accessioner Relationship Specialty Start Date End Date Nina Haile MD [address] [place] [address] [place] [address] PCP - General Family Medicine 10/25/19 documented as of this encounter
--- OUTSIDE RECORDS SUMMARY | 2024-03-06 14:08 | External Medical Summary | Summary of Care ---
Author Name Unknown Organization [facility] Address [address] [place] [address] Phone [phone] Care Team Providers Care Radiologic Technician Name Role Phone Nina Haile MD Primary Care Provide r Reason for Visit * Reason Onset Date Comments Skilled Visit 01/26/2024 Encounter Details Date Type Department Care Team (Latest Contact Info) Description 01/26/2024 12:30 PM EST [facility] Visit [facility] 100 [facility] [place] [address] Senait Granados PA-C [address] [place] [address] Metabolic encephalopathy*; Acute cystitis without hematuria; Grade III astrocytoma (HCC) Allergies Active Allergy Reactions Criticality Noted Date Comments Cimetidine 05/29/1999 Hair thinning Cimetidine Unknown 12/19/2020 Erythromycin 09/08/2000 GI side effects Penicillins 05/29/1999 Phenytoin Sodium 05/29/1999 Rash, hives documented as of this encounter (statuses as of 01/26/2024) Medications carBAMazepine ER (CARBATROL) 100 MG CP12 Take 2 Capsules by mouth in the morning and 2 Capsules before bedtime. (0900/2099).. 60 Cap 9 Active linaclotide (LINZESS) 72 [...] as of this encounter (statuses as of 01/26/2024) Active Problems Problem Noted Date Diagnosed Date [...] goal LDL below 130 08/01/2010 LOC PRIM [id number] 12/03/1999 Esophageal reflux 05/29/1999 Idiopathic urticaria History of peptic ulcer disease Overview (12/08/2016): ICD-10 update of inactive term Acquired hypothyroidism documented as of this encounter (statuses as of 01/26/2024) Resolved Problems Problem Noted Date Diagnosed Date [...] as of this encounter (statuses as of 01/26/2024) Immunizations Name Administration Dates Next Due Seasonal [...] 05/26/2024 1:30 PM EDT Office Visit Allergy/Immunology [facility] 200 [place] [address] Jhon Resendiz MD 200 [place] [address] 08/04/2024 3:30 PM EDT Telemedicine Hematology Oncology [address] [phone] Neida Hurtado MD Health Maintenance Due Date [...] Visit Diagnoses Diagnosis Metabolic encephalopathy- Primary Acute cystitis without hematuria Acute cystitis Grade III astrocytoma (HCC) Malignant neoplasm of [...] and were consensually agreed upon. Care Teams Radiologic Technician Relationship Specialty Start Date End Date Nina Haile MD 100 [facility] [place] [address] PCP - General Family Medicine 10/25/19 documented as of this encounter
--- OUTSIDE RECORDS SUMMARY | 2024-03-06 14:08 | External Medical Summary | Summary of Care ---
Author Name Unknown Organization [facility] Address [address] [place] [address] Phone [phone] Care Team Providers Care Gameplay Programmer Name Role Phone Nina Haile MD Primary Care Provide r Reason for Visit * Reason Onset Date Comments Appointment 01/19/2024 Encounter Details Date Type Department Care Team (Late st Contact Info) Description 01/19/2024 Telephone Hematology Oncology [facility] [place] [address] [place] [address] Neida Hurtado MD Appointment Allergies Active Allergy Reactions Criticality Noted Date Comments Cimetidine 05/29/1999 Hair thinning Cimetidine Unknown 12/19/2020 Erythromycin 09/08/2000 GI side effects Penicillins 05/29/1999 Phenytoin Sodium 05/29/1999 Rash, hives documented as of this encounter (statuses as of 01/19/2024) Medications carBAMazepine ER (CARBATROL) 100 MG CP12 [...] as of this encounter (statuses as of 01/19/2024) Active Problems Problem Noted Date Diagnosed Date [...] goal LDL below 130 08/01/2010 LOC PRIM [id number] 12/03/1999 Esophageal reflux 05/29/1999 Idiopathic urticaria History of peptic ulcer disease Overview (12/08/2016): ICD-10 update of inactive term Acquired hypothyroidism documented as of this encounter (statuses as of 01/19/2024) Resolved Problems Problem Noted Date Diagnosed Date [...] as of this encounter (statuses as of 01/19/2024) Immunizations Name Administration Dates Next Due Seasonal [...] Assessment Author Yes 07/16/2019 1:58 PM EDT Klemick, Dominique, ORCHARD SPRAYER * Do you have difficulty dressing or [...] encounter Miscellaneous Notes * Telephone Encounter - Marbella Mirza OSA - 01/19/2024 10:13 AM EST Called SNF to cancel upcoming appt with Dr. Hurtado and to schedule a New Ret appt in [facility] office, since Dr. Hurtado left [facility]. documented in this encounter Plan of Treatment Upcoming Encounters Date Type Department Care Team (Late st Contact Info) Description 05/26/2024 1:30 PM EDT [facility] 200 [facility] [place] [address] Jhon Resendiz MD 200 [facility] [place] [address] 08/04/2024 3:30 PM EDT Telemedicine Hematology Oncology [address] [phone] Neida Hurtado MD Health Maintenance [...] and were consensually agreed upon. Care Teams Gameplay Programmer Relationship Specialty Start Date End Date Nina Haile MD [facility] [place] [address] PCP - General Family Medicine 10/25/19 documented as of this encounter
--- OUTSIDE RECORDS SUMMARY | 2024-03-06 14:08 | External Medical Summary | Summary of Care ---
Author Name Unknown Organization [facility] Address [address] [place] [address] Phone [phone] Care Team Providers Care Esol Teacher Assistant Name Role Phone Nina Haile MD Primary Care Provide r Reason for Visit * Reason Onset Date Comments Skilled Visit 01/20/2024 Encounter Details Date Type Department Care Team (Latest Contact Info) Description 01/20/2024 10:00 AM EST [facility] Visit [facility] 100 [facility] [place] [address] Senait Granados PA-C 100 [place] [address] Metabolic encephalopathy*; Acute UTI; Grade III astrocytoma (HCC) Allergies Active Allergy Reactions Criticality Noted Date Comments Cimetidine 05/29/1999 Hair thinning Cimetidine Unknown 12/19/2020 Erythromycin 09/08/2000 GI side effects Penicillins 05/29/1999 Phenytoin Sodium 05/29/1999 Rash, hives documented as of this encounter (statuses as of 01/20/2024) Medications carBAMazepine ER (CARBATROL) 100 MG CP12 [...] as of this encounter (statuses as of 01/20/2024) Active Problems Problem Noted Date Diagnosed Date [...] goal LDL below 130 08/01/2010 LOC PRIM [id number] 12/03/1999 Esophageal reflux 05/29/1999 Idiopathic urticaria History of peptic ulcer disease Overview (12/08/2016): ICD-10 update of inactive term Acquired hypothyroidism documented as of this encounter (statuses as of 01/20/2024) Resolved Problems Problem Noted Date Diagnosed Date [...] as of this encounter (statuses as of 01/20/2024) Immunizations Name Administration Dates Next Due Seasonal [...] of Assessment Author No 07/14/2019 2:46 PM Altagraica Edmonds RN * Are you blind or [...] 05/26/2024 1:30 PM EDT Office Visit Allergy/Immunology [facility] 200 [facility] [place] [address] Jhon Resendiz MD 200 [place] [address] 08/04/2024 3:30 PM EDT Telemedicine Hematology Oncology [address] [phone] Neida Hurtado MD Health Maintenance [...] and were consensually agreed upon. Care Teams Esol Teacher Assistant Relationship Specialty Start Date End Date Nina Haile MD [address] [place] [address] [place] [address] PCP - General Family Medicine 10/25/19 documented as of this encounter
--- OUTSIDE RECORDS SUMMARY | 2024-03-06 14:08 | External Medical Summary | Summary of Care ---
Author Name Unknown Organization [facility] Address [address] [place] [address] Phone [phone] Care Team Providers Care Research Consultant Name Role Phone Nina Haile MD Primary Care Provide r Reason for Visit * Reason Onset Date Comments Senior Care Visit 01/29/2024 Encounter Details Date Type Department Care Team (Late st Contact Info) Description 01/29/2024 10:00 AM EST [facility] Visit [facility] 100 [place] [address] Senait Granados PA-C 100 [place] [address] Urticaria* Allergies Active Allergy Reactions Criticality Noted Date Comments Cimetidine 05/29/1999 Hair thinning Cimetidine Unknown 12/19/2020 Erythromycin 09/08/2000 GI side effects Penicillins 05/29/1999 Phenytoin Sodium 05/29/1999 Rash, hives documented as of this encounter (statuses as of 01/29/2024) Medications carBAMazepine ER (CARBATROL) 100 MG CP12 [...] as of this encounter (statuses as of 01/29/2024) Active Problems Problem Noted Date Diagnosed Date [...] goal LDL below 130 08/01/2010 LOC PRIM [id number] 12/03/1999 Esophageal reflux 05/29/1999 Idiopathic urticaria History of peptic ulcer disease Overview (12/08/2016): ICD-10 update of inactive term Acquired hypothyroidism documented as of this encounter (statuses as of 01/29/2024) Resolved Problems Problem Noted Date Diagnosed Date [...] as of this encounter (statuses as of 01/29/2024) Immunizations Name Administration Dates Next Due Seasonal [...] Assessment Author Yes 07/14/2019 2:46 PM EDT Altgaracia Man RN * Because of a physical, [...] 05/26/2024 1:30 PM EDT Office Visit Allergy/Immunology [facility] [address] [facility] [place] [address] Jhon Resendiz MD 200 [place] [address] 08/04/2024 3:30 PM EDT Telemedicine Hematology Oncology [address] [phone] Neida Hurtado MD Health Maintenance [...] as of this encounter Visit Diagnoses Diagnosis Urticaria- Primary Urticaria, unspecified documented in this encounter Advance Directives [...] and were consensually agreed upon. Care Teams Research Consultant Relationship Specialty Start Date End Date Nina Haile MD [address] [place] [address] [place] [address] PCP - General Family Medicine 10/25/19 documented as of this encounter
--- OUTSIDE RECORDS SUMMARY | 2024-03-06 14:08 | External Medical Summary | Summary of Care ---
Author Name Unknown Organization [facility] Address [address] [place] [address] Phone [phone] Care Team Providers Care Explosives Handler Name Role Phone Nina Haile MD Primary Care Provide r Reason for Visit * Reason Onset Date Comments [facility] Visit 01/28/2024 Encounter Details Date Type Department Care Team (Latest Contact Info) Description 01/28/2024 6:00 AM EST [facility] Visit [facility] 100 [place] [address] Senait Granados PA-C 100 [place] [address] Urticaria of unknown origin*; Grade III astrocytoma (HCC); Left hemiparesis (HCC) Allergies Active Allergy Reactions Criticality Noted Date Comments Cimetidine 05/29/1999 Hair thinning Cimetidine Unknown 12/19/2020 Erythromycin 09/08/2000 GI side effects Penicillins 05/29/1999 Phenytoin Sodium 05/29/1999 Rash, hives documented as of this encounter (statuses as of 01/28/2024) Medications carBAMazepine ER (CARBATROL) 100 MG CP12 [...] as of this encounter (statuses as of 01/28/2024) Active Problems Problem Noted Date Diagnosed Date [...] goal LDL below 130 08/01/2010 LOC PRIM [id number] 12/03/1999 Esophageal reflux 05/29/1999 Idiopathic urticaria History of peptic ulcer disease Overview (12/08/2016): ICD-10 update of inactive term Acquired hypothyroidism documented as of this encounter (statuses as of 01/28/2024) Resolved Problems Problem Noted Date Diagnosed Date [...] as of this encounter (statuses as of 01/28/2024) Immunizations Name Administration Dates Next Due Seasonal [...] 05/26/2024 1:30 PM EDT [facility] 200 [facility] [address] Jhon Resendiz MD 200 [place] [address] 08/04/2024 3:30 PM EDT Telemedicine Hematology Oncology [address] [phone] Neida Hurtado MD Health Maintenance Due Date [...] as of this encounter Visit Diagnoses Diagnosis Urticaria of unknown origin- Primary Grade III astrocytoma (HCC) Malignant neoplasm [...] and were consensually agreed upon. Care Teams Explosives Handler Relationship Specialty Start Date End Date Nina Haile MD 100 [facility] [place] [id number] PCP - General Family Medicine 10/25/19 documented as of this encounter
--- OUTSIDE RECORDS SUMMARY | 2024-03-06 14:08 | External Medical Summary | Summary of Care ---
Author Name Unknown Organization [facility] Address [address] [facility] [place] [address] Phone [phone] Care Team Providers Care Media Arts Professor Name Role Phone Nina Haile MD Primary Care Provide r Encounter Details Date Type Department Care Team (Late st Contact Info) Description 01/15/2024 Orders Only Lab Mobile Phlebotomy [facility] [address] [facility] [place] [address] Nina Haile MD [address] [place] [address] [place] [address] HTN, goal below 140/90* Allergies Active Allergy Reactions Criticality Noted Date Comments Cimetidine 05/29/1999 Hair thinning Cimetidine Unknown 12/19/2020 Erythromycin 09/08/2000 GI side effects Penicillins 05/29/1999 Phenytoin Sodium 05/29/1999 Rash, hives documented as of this encounter (statuses as of 01/15/2024) Medications Medication Sig Dispensed Refills Start Date [...] as of this encounter (statuses as of 01/15/2024) Active Problems Problem Noted Date Diagnosed Date [...] goal LDL below 130 08/01/2010 LOC PRIM [id number] 12/03/1999 Esophageal reflux 05/29/1999 Idiopathic urticaria History of peptic ulcer disease Overview: ICD-10 update of inactive term Acquired hypothyroidism documented as of this encounter (statuses as of 01/15/2024) Resolved Problems Problem Noted Date Diagnosed Date [...] as of this encounter (statuses as of 01/15/2024) Immunizations Name Administration Dates Next Due Seasonal [...] Care Team (Late st Contact Info) Description 01/15/2024 5:00 AM EST Laboratory Lab Mobile Phlebotomy [facility] [address] [employer] [facility] [place] [address] [place] [address] Arrived 05/26/2024 1:30 PM EDT Office Visit Allergy/Immunology State [facility] 200 [facility] [place] [address] Jhon Resendiz MD [address] [place] [address] 08/04/2024 3:30 PM EDT Telemedicine Hematology Oncology [address] [place] [address] Neida Hurtado MD Scheduled Orders Name Type Priority Associated Diagnoses Orde r Schedule BASIC METABOLIC PANEL Lab Routine HTN, goal below 140/90 Expected: 01/15/2024, Expires: 01/14/2025 Health Maintenance Due Date Last Done Comments [...] 06/25/2022, Additional history exists GFR 01/04/2025 01/05/2024, 06/2023, 12/07/2023, Additional history exists Diabetes Screening 01/04/2027 [...] as of this encounter Visit Diagnoses Diagnosis HTN, goal below 140/90- Primary Unspecified essential hypertension documented in this encounter Advance Directives * [...] and were consensually agreed upon. Care Teams Media Arts Professor Relationship Specialty Start Date End Date Nina Haile MD [address] [place] [address] [place] [address] PCP - General Family Medicine 10/25/19 documented as of this encounter
--- OUTSIDE RECORDS SUMMARY | 2024-03-06 14:08 | External Medical Summary | Summary of Care ---
Author Name Unknown Organization [facility] Address [address] [place] [address] Phone [phone] Care Team Providers Care Machine Clothing Replacer Name Role Phone Nina Haile MD Primary Care Provide r Reason for Visit * Reason Onset Date Comments Skilled Visit 01/14/2024 Encounter Details Date Type Department Care Team (Latest Contact Info) Description 01/14/2024 8:30 AM EST Residential Visit [facility] 100 [facility] [place] [address] Senait Granados PA-C 100 [place] [address] Metabolic encephalopathy*; Acute UTI; Grade III astrocytoma (HCC); Left hemiparesis (HCC) Allergies Active Allergy Reactions Criticality Noted Date Comments Cimetidine 05/29/1999 Hair thinning Cimetidine Unknown 12/19/2020 Erythromycin 09/08/2000 GI side effects Penicillins 05/29/1999 Phenytoin Sodium 05/29/1999 Rash, hives documented as of this encounter (statuses as of 01/14/2024) Medications Medication Sig Dispensed Refills Start Date [...] as of this encounter (statuses as of 01/14/2024) Active Problems Problem Noted Date Diagnosed Date [...] goal LDL below 130 08/01/2010 LOC PRIM [id number] 12/03/1999 Esophageal reflux 05/29/1999 Idiopathic urticaria History of peptic ulcer disease Overview: ICD-10 update of inactive term Acquired hypothyroidism documented as of this encounter (statuses as of 01/14/2024) Resolved Problems Problem Noted Date Diagnosed Date [...] as of this encounter (statuses as of 01/14/2024) Immunizations Name Administration Dates Next Due Seasonal [...] Progress Notes * Senait Granados PA-C - 01/14/2024 12:17 PM EST Name: Janay Kaplan Date of :1960 TRANSITION EVENT: Type: Skilled visit Date: January 13 Code Status: No Code This note pertains to care provided at [facility]. Please see facility medical record for original note. This note is not to be edited or addended in [employer]FFON. Editing or addending needs to occur in the facilities medical record. Subjective: Janay Kaplan is a 63 year old female. Patient being seen for skilled visit Chief Complaint Patient presents with Skilled Visit HPI: pt is readmitted back to SNF following admission to [facility] due to metabolic encephalopathy and fever due to UTI. She is completed course of Bactrim DS in SNF. She is back to baseline in mentation and mood. Eating and drinking ok. Vital signs stable. Afebrile. No nausea or vomiting. Has labs pending for tomorrow. Labs pending for tomorrow Patient Active Problem List Diagnosis Esophageal reflux LOC PRIM [id number] Idiopathic urticaria History of peptic ulcer disease [...] LV functon. LVEF 60 to 65%.mild LVH. [facility] CARPAL TUNNEL SURGERY Right 1991 right CHEST 1 VIEW 12/20/2018 pulmonary vascular congesion. trace pleural fluid left base. [facility] CRAN LOBE,NOT TEMPORAL,ELEC Dr [place], [place] right frontal lobectomy/malignant brain tumor CT HEAD/BRAIN WO CONTRAST 12/20/2018 no acute intracranial findings. [facility] CTA NECK W CONTRAST 12/20/2018 no significant occlusion, stenosis or dissection within carotid or vertebral arteries. mild scattered plaque formation. [facility] DILATION AND CURETTAGE (D&C) EKG 12/20/2018 NSR. LVH. no acute changes. [facility] LAPAROSCOPY;WITH BIOPSY times 3 Laparoscopy,w Bx- Thursday LIGATE/CUT OVIDUCT(S) MAMMOGRAM SCREENING BILATERAL 04/03/2010 cat. 1, repeat in 12mths MAMMOGRAM SCREENING BILATERAL Bilateral 07/04/14 almost entirely fat, category 1 normal MICROSURGERY ADD-ON Right 07/14/2019 MICROSURGICAL SURGERY REQUIRING MICROSCOPE LISTED SEPARATELY [facility] MRA HEAD W CONTRAST 12/20/2018 no signficant stenosis, occlusion or aneurysm wtih [place] arm[place]. modeate midline shift to left unchanged from prior exam. [facility] MRI BRAIN WITH CONTRAST 12/20/2018 stable post surgical changes s/p right frontal craniotomy and resecton. no acute pathology. [facility] QUIROZ SKULL FOR BIOPSY Right 07/14/2019 KENNY HOLE BIOPSY OF BRAIN performed by Pankaj Mejia MD at OR [facility] RADIATION THERAPY DOSE PLAN,COMPLEX - 30 txs/cranium REMOVAL OF TONSILS, UNDER AGE 12 STEREOTACTIC CRANIAL INTRADURAL NAVIGATION Right 07/14/2019 STEREOTACTIC CRANIAL INTRADURAL NAVIGATION performed by Pankaj Mejia MD at OR [facility] UPPER GI ENDOSCOPY/EXAM neg test/naveen test [...] list as this cannot be edited in [employer]. Review of Systems: Constitutional ROS: No change in weight, less weakness,less fatigue and No fevers, sweats, or chills [...] No rash and No itching Neurologic ROS: No headaches and +seizures s/p CVA Psychiatric ROS: No depression, No [...] cyanosis Neuro Exam: alert with unchanged speech, unchanged left hemiparesis Skin: skin color, texture, turgor are normal, no rashes or significant lesions ASSESSMENT: Metabolic encephalopathy (Primary) Mood and mentation back to baseline BMP ordered for tomorrow Acute UTI No symptoms currently Complete Bactrim DS course Grade III astrocytoma (HCC) Stable NV findings Continue with followup by oncology Left hemiparesis (HCC) Stable no new NV findings Continue to follow PLAN: Reviewed notes and labs and medicatons [facility] Home Treatment Given: as above Electronically signed by: Senait Granados PA-C Over 35 minutes were spent in this visit more than half the time was spent counselling or coordinating care. documented in this encounter Plan of Treatment Upcoming Encounters Date Type Department Care Team (Late st Contact Info) Description 05/26/2024 1:30 PM EDT Office Visit Allergy[facility]Immunology [facility] [place] 200 [facility] [place] [address] Jhon Resendiz MD 200 [facility] [place] [address] 08/04/2024 3:30 PM EDT Telemedicine Hematology Oncology [address] [address] Neida Hurtado MD Health Maintenance [...] and were consensually agreed upon. Care Teams Machine Clothing Replacer Relationship Specialty Start Date End Date Nina Haile MD [address] [place], [place] [address] [address] PCP - General Family Medicine 10/25/19 documented as of this encounter
--- OUTSIDE RECORDS SUMMARY | 2024-03-06 14:08 | External Medical Summary ---
Author Name Unknown Address Unknown Organization [facility] [address] [place] [id number] Laboratory Report Ordering Provider Test Date Status RUSSELL CHOWDARY 01/15/2024 05:36:00 Final Observation Date Value Abnormality Reference (Units ) Status BUN 01/15/2024 05:36:00 11 6-20 (mg/dL) Final Creatinine 01/15/2024 05:36:00 0.7 0.5-1.0 (mg/dL) Final Glomerular filtration rate/1.73 sq M.predicted [Volume Rate/Area] in Serum, Plasma or Blood by Creatinine-based formula (CKD-EPI) 01/15/2024 05:36:00 >90 >=60 (mL/min) Final eGFR is calculated based on the CKD-EPI 2020 equation. Sodium 01/15/2024 05:36:00 141 135-146 (m mol/L) Final Potassium 01/15/2024 05:36:00 4.3 3.5-5.1 (m mol/L) Final Cl 01/15/2024 05:36:00 107 98-107 (mm ol/L) Final CO2 01/15/2024 05:36:00 23 22-32 (mmo l/L) Final Anion gap 01/15/2024 05:36:00 11 7-15 (mmol /L) Final Glucose 01/15/2024 05:36:00 79 70-120 (mg /dL) Final Calcium 01/15/2024 05:36:00 8.5 8.4-10.2 ( mg/dL) Final [facility] Location [facility] [address] [place] [id number]
--- OUTSIDE RECORDS SUMMARY | 2024-03-06 14:08 | External Medical Summary | Summary of Care ---
Author Name Unknown Organization [facility] Address [address] [place] [address] Phone [phone] Care Team Providers Care Shipper/Receiver Name Role Phone Nina Haile MD Primary Care Provide r Reason for Visit * Reason Onset Date Comments Long-Term Visit - Readmission 01/12/2024 Encounter Details Date Type Department Care Team (Latest Contact Info) Description 01/12/2024 6:00 AM EST Long-Term Visit [facility] [place] [address] [place] [address] Senait Granados PA-C 100 [place] [address] Metabolic encephalopathy*; Acute UTI (urinary tract infection); Grade III astrocytoma (HCC); HTN, goal below 140/90; Seizure disorder (HCC); Acquired hypothyroidism; Dyslipidemia, goal LDL below 130 Allergies Active Allergy Reactions Criticality Noted Date Comments Cimetidine 05/29/1999 Hair thinning Cimetidine Unknown 12/19/2020 Erythromycin 09/08/2000 GI side effects Penicillins 05/29/1999 Phenytoin Sodium 05/29/1999 Rash, hives documented as of this encounter (statuses as of 01/12/2024) Medications Medication Sig Dispensed Refills Start Date [...] as of this encounter (statuses as of 01/12/2024) Active Problems Problem Noted Date Diagnosed Date [...] goal LDL below 130 08/01/2010 LOC PRIM [id number] 12/03/1999 Esophageal reflux 05/29/1999 Idiopathic urticaria History of peptic ulcer disease Overview: ICD-10 update of inactive term Acquired hypothyroidism documented as of this encounter (statuses as of 01/12/2024) Resolved Problems Problem Noted Date Diagnosed Date [...] as of this encounter (statuses as of 01/12/2024) Immunizations Name Administration Dates Next Due Seasonal [...] Progress Notes * Senait Granados PA-C - 01/12/2024 11:36 AM EST READMISSION NOTE Name: Janay Kaplan Date of :1960 TRANSITION EVENT: Type: Readmission to SNF from Hospital Date: January 10 Code Status: No Code This note pertains to care provided at [facility]. Please see facility medical record for original note. This note is not to be edited or addended in [employer]. Editing or addending needs to occur in the facilities medical record. Subjective: Janay Kaplan is a 63 year old female. Patient being seen for readmission Chief Complaint Patient presents with Long-Term Visit - Readmission HPI: 63 year old female,LTC resident, with history of CVA, grade 3 astrocytoma, subdural hygroma, seizure disorder, HTN, GERD, chronic urticaria was tranported to [facility] ED on 01/05/24 due to one to two days history of altered mental status, lethargy, weakness compared to her baseline. Temperature 101 F. Staff attempted to obtain urine specimen but was unable to succeed so she was sent to ED. In the ED: T: 37.7 C. HR: 73 RR: 24 BP: 119/77mmHg. O2 saturation: 95% CBC: WBC:: 6.85. H/H: 14.9 and 45.4. PLT: 177,000. INR: 1.2. Urinalysis showed 1+ blood, WBC's present. Creatinine at baseline: 0.81. Lytes, LFTS, Magnesium, Phosphorus, Glucose, Lactate, Calcium, Procalcitonin normal. Biofire respiratory panel negative. Urine C&S >80,000 colonies of E.coli.Blood C&S no growth. CT scan of brain showed stable postoperative findings, no acute intracranial abnormalities. CXR showed NAD. ECG: NSR with no acute changes. Pt was begun on IVF and IV Rocephin. Later changed to Ertapenam due to development of hives thoughtto be due to Rocephin. Pt remained stable and her mentation and alertness returned to baseline with above Rx. She remainedafebrile. CBC and BMP remained stable. She is discharged back to SNF on 01/11/24 to complete BactrimDS course. Patient Active Problem List Diagnosis Esophageal reflux LOC PRIM [id number] Idiopathic urticaria History of peptic ulcer disease [...] [facility] CRAN LOBE,NOT TEMPORAL,ELEC Dr [place], [place] right [...] SEPARATELY performed by Pankaj Mejia, [place] [facility] MRA HEAD W CONTRAST 12/20/2018 no signficant stenosis, occlusion or aneurysm wtih [place]. modeate midline shift to left unchanged from prior exam. [facility] MRI BRAIN WITH CONTRAST 12/20/2018 stable post surgical changes s/p right frontal craniotomy and resecton. no acute pathology. [facility] QUIROZ SKULL FOR BIOPSY Right 07/14/2019 KENNY HOLE BIOPSY OF BRAIN performed by Pankaj Mejia MD at OR [facility] RADIATION THERAPY DOSE PLAN,COMPLEX - 30 txs/cranium REMOVAL OF TONSILS, UNDER AGE 12 STEREOTACTIC CRANIAL INTRADURAL NAVIGATION Right 07/14/2019 STEREOTACTIC CRANIAL INTRADURAL NAVIGATION performed by Pankaj Mejia MD at OR [facility] UPPER GI ENDOSCOPY/EXAM neg test/naveen test neg. [...] list as this cannot be edited in [employer]. Review of Systems: Constitutional ROS: No change [...] vomiting, diarrhea, or constipation and No dysphagia Musculoskeletal/Extremities ROS:see HPI Skin/Integumentary ROS: No rash and No itching +urticaria Neurologic ROS: see HPI Psychiatric ROS: + depression, No anxiety and No psychosis Sleep: No sleep disorders OBJECTIVE: PHYSICALEXAM: LMP 03/13/2011 I reviewed the most recent facilities vitals. General: alert, no distress, well nourished and well developed Head: post surgical changes scalp, chronic Eye Exam: Conjunctiva are pink and [...] & oriented x 3 with affected speech, hemiiparesis unchanged Skin: skin color, texture, turgor are normal, no rashes or significant lesions ASSESSMENT: Metabolic encephalopathy (Primary) Reviewed [facility] notes at length Back to baseline in mentation and mood Recheck BMP next lab draw Acute UTI (urinary tract infection) Complete Bactrim DS as directed Grade III astrocytoma (HCC) Stable Continue followup with oncology as directed HTN, goal below 140/90 At goal Continue Norvasc as directed Seizure disorder (HCC) Stable Continue Tegretol as directed Acquired hypothyroidism Stable Continue Levoxyl as directed Dyslipidemia, goal LDL below 130 At goal Continue statin as directed PLAN: Continue present medication(s):as ordered. Care Home Home Treatment Given: as above Electronically signed by: Senait Granados PA-C Over 45 minutes were spent in this visit more than half the time was spent counselling or coordinating care. documented in this encounter Plan of Treatment Upcoming Encounters Date Type Department Care Team (Late st Contact Info) Description 05/26/2024 1:30 PM EDT Office Visit Allergy/Immunology [facility] [employer] [facility] [place] [place] [place] [address] Jhon Resendiz MD 200 [facility] [place] [address] 08/04/2024 3:30 PM EDT Telemedicine Hematology Oncology [address] [place] [address] Neida Hurtado MD Health Maintenance Due [...] Diagnoses Diagnosis Metabolic encephalopathy- Primary Acute UTI (urinary tract infection) Urinary tract infection, site not specified Grade III astrocytoma (HCC) Malignant neoplasm of brain, unspecified site HTN, goal below 140/90 Unspecified essential hypertension Seizure disorder (HCC) Unspecified epilepsy without mention of intractable epilepsy Acquired hypothyroidism Unspecified hypothyroidism Dyslipidemia, goal LDL [...] and were consensually agreed upon. Care Teams Shipper/Receiver Relationship Specialty Start Date End Date Nina Haile MD [address] [place], [place] [address] [address] PCP - General Family Medicine 10/25/19 documented as of this encounter
--- OUTSIDE RECORDS SUMMARY | 2024-03-06 14:08 | External Medical Summary | Summary of Care ---
Author Name Unknown Organization [facility] Address [address] [place] [address] Phone [phone] Care Team Providers Care Measurement Coordinator Name Role Phone Nina Haile MD Primary Care Provide r Reason for Visit * Reason Onset Date Comments Assisted Visit 02/11/2024 Encounter Details Date Type Department Care Team (Latest Contact Info) Description 02/11/2024 6:30 AM EST Assisted Visit [facility] 100 [place] [address] Senait Granados PA-C 100 [place] [address] Lethargic*; Grade III astrocytoma (HCC); Seizure disorder (HCC) Allergies Active Allergy Reactions Criticality Noted Date Comments Cimetidine 05/29/1999 Hair thinning Cimetidine Unknown 12/19/2020 Erythromycin 09/08/2000 GI side effects Penicillins 05/29/1999 Phenytoin Sodium 05/29/1999 Rash, hives documented as of this encounter (statuses as of 02/11/2024) Medications carBAMazepine ER (CARBATROL) 100 MG CP12 Take 2 Capsules by mouth in the morning and 2 Capsules before bedtime. (0900/2100).. 60 Cap 03/25/201 9 Active linaclotide (LINZESS) 72 MCG CAPS [...] as of this encounter (statuses as of 02/11/2024) Active Problems Problem Noted Date Diagnosed Date [...] goal LDL below 130 08/01/2010 LOC PRIM [id number] 12/03/1999 Esophageal reflux 05/29/1999 Idiopathic urticaria History of peptic ulcer disease Overview (12/08/2016): ICD-10 update of inactive term Acquired hypothyroidism documented as of this encounter (statuses as of 02/11/2024) Resolved Problems Problem Noted Date Diagnosed Date [...] as of this encounter (statuses as of 02/11/2024) Immunizations Name Administration Dates Next Due Seasonal [...] Assessment Author No 07/14/2019 2:46 PM EDT Roni mcdermott, Altagracia Valencia RN * Are you blind or do [...] 05/26/2024 1:30 PM EDT Office Visit Allergy/Immunology [facility] 200 [facility] [place] [address] Jhon Resendiz MD 200 [place] [address] 08/04/2024 3:30 PM EDT Telemedicine Hematology Oncology [address] [phone] Neida Hurtado MD Health Maintenance Due Date [...] as of this encounter Visit Diagnoses Diagnosis Lethargic- Primary Other malaise and fatigue Grade III astrocytoma [...] and were consensually agreed upon. Care Teams Measurement Coordinator Relationship Specialty Start Date End Date [facility]ile MD [address] [facility] [address] PCP - General Family Medicine 10/25/19 documented as of this encounter
--- OUTSIDE RECORDS SUMMARY | 2024-03-06 14:09 | External Medical Summary | Continuity Of Care Document ---
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, not intractable, without status epilepticus 05/28/2018 Active K21.9 Gastro-esophageal re flux disease without esophagitis 05/28/2018 Active M17.0 Bilateral primary osteoarthritis of knee 2018 Active L50.1 Idiopathic urticaria 05/28/2018 Acti ve C71.9 Malignant neoplasm of brain, unspecified 2018 Active R74.8 Abnormal levels of other serum enzymes 05/29/19 Active R56.9 Unspecified convulsions 05/28/2018 A ctive E03.8 Other specified hypothyroidism 05/28/2018 Active G81.94 Hemiplegia, unspecif ied affecting left nondominant side 07/17/2019 Active R26.2 Difficulty in walking, not elsewhere classified 07/17/2019 Active M62.81 Muscle weakness (generalized) 07/17/2019 Active Z74.1 Need for assistance with personal care 07/17/19 Active R26.9 Unspecified abnormalities of gait and mobility 07/17/2019 Active A41.9 Sepsis, unspecified organism 07/25/202200/ 000 Active M24.574 Contracture, right foot 06/10/2022 A ctive M24.575 Contracture, left foot 06/10/2022 Ac tive R29.3 Abnormal posture 01/24/2021 Active M62.49 Contracture of muscle, multiple sites Active R26.9 Unspecified abnormalities of gait and mobility 07/06/2019 Active R13.12 Dysphagia, oropharyngeal phase 07/06/2019 Active Z91.81 History of falling 10/03/2018 Active S09.90XD Unspecified injury o f head, subsequent encounter 10/03/2018 Active R26.89 Other abnormalities of gait and mobility 2018 Active R52. Pain, unspecified 10/03/2018 Active R30.0 Dysuria 10/03/2018 Active Z86.69 Personal history of other diseases of the nervous system and sense organs 10/03/2018 Active L50.9 Urticaria, unspecified 10/03/2018 Ac tive R63.5 Abnormal weight gain 10/03/2018 Acti ve E03.9 Hypothyroidism, unspecified 10/03/2018 00 Active L28.2 Other prurigo 10/03/2018 Active L30.9 Dermatitis, unspecified 10/03/2018 A ctive R21. Rash and other nonspecific skin eruption 2018 Active G96.00 Cerebrospinal fluid leak, unspecified Active U07.1 COVID-19 01/18/2020 Active M62.81 Muscle weakness (generalized) 07/17/2019 Active Z74.1 Need for assistance with personal care 07/17/19 Active M62.479 Contracture of muscl e, unspecified ankle and foot 05/01/2023 Active R55. Syncope and collapse 05/28/2018 Acti ve R26.2 Difficulty in walking, not elsewhere classified 10/21/2018 Active M62.81 Muscle weakness (generalized) 10/18/2018 Active Z74.1 Need for assistance with personal care 10/19/19 Active M62.81 Muscle weakness (generalized) 01/06/2019 Active M62.81 Muscle weakness (generalized) 05/31/2019 Active R26.89 Other abnormalities of gait and mobility 2019 Active Z74.1 Need for assistance with personal care 06/28/19 Active R26.9 Unspecified abnormalities of gait and mobility 05/31/2019 Active R13.12 Dysphagia, oropharyngeal phase 06/27/2019 Active M62.472 Contracture of muscle, left ankle and foot 11/08 Active G81.94 Hemiplegia, unspecif ied affecting left nondominant side 05/01/2023 Active M62.479 Contracture of muscl e, unspecified ankle and foot 05/01/2023 Active C71.9 Malignant neoplasm of brain, unspecified 2023 Active I69.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 08/07/2023 Active VITAL SIGNS Date Time Diastolic blood pressure Systolic blood pressure Body height Body weight Temperature SpO2 Blood Sugar Pulse Respirations 001 59688 3 64.00 mm[Hg] - Sitting 128.00 mm[Hg] - Sitting 97.20 Oral 52.00/ min 001 25618 8 157.50 NI Immunizations Vaccine Date Status COVID-19 03/06/2020 Completed COVID-19 03/27/2020 Completed COVID-19 01/02/2021 Completed COVID-19 08/22/2021 Completed COVID-19 12/19/2021 Completed COVID-19 01/06/2023 Completed Influenza 03/10/2018 Completed Influenza 12/06/2018 Completed Influenza 12/08/2019 Completed Influenza 12/20/2020 Completed Influenza 12/29/2021 Completed Influenza 12/24/2022 Completed (PCV13)Pneumococcal 05/31/2018 Completed Other 06/04/2023 Completed (PPSV23)Pneumococcal 03/22/2015 Completed TDaP 04/25/2008 Completed
--- OUTSIDE RECORDS SUMMARY | 2024-03-06 14:09 | External Medical Summary ---
Author Name Unknown Address Unknown Organization [facility] [address] [facility] [address] Laboratory Report Ordering Provider Test Date Status LITZY BERGMAN 01/05/2024 09:00:00 Final Observation Date Value Abnormality Reference (Units ) Status BUN 01/05/2024 09:00:00 17 6-20 (mg/dL) Final Creatinine 01/05/2024 09:00:00 0.8 0.5-1.0 (mg/dL) Final Glomerular filtration rate/1.73 sq M.predicted [Volume Rate/Area] in Serum, Plasma or Blood by Creatinine-based formula (CKD-EPI) 01/05/2024 09:00:00 87 >=60 (mL/min) Final eGFR is calculated based on the CKD-EPI 2020 equation. Sodium 01/05/2024 09:00:00 149 Above high normal 13 5-146 (mmol/L) Final Potassium 01/05/2024 09:00:00 4.4 3.5-5.1 (m mol/L) Final Results may be falsely eleva iris due to hemolysis. Cl 01/05/2024 09:00:00 112 Above high normal 98 -107 (mmol/L) Final CO2 01/05/2024 09:00:00 24 22-32 (mmo l/L) Final Anion gap 01/05/2024 09:00:00 13 7-15 (mmol /L) Final Glucose 01/05/2024 09:00:00 98 70-120 (mg /dL) Final Calcium 01/05/2024 09:00:00 8.8 8.4-10.2 ( mg/dL) Final Performing Location LABORATORY [facility] - [facility] [address] [facility] [id number]
--- OUTSIDE RECORDS SUMMARY | 2024-03-06 14:09 | External Medical Summary | Summary of Care ---
Author Name Unknown Organization [facility] Address [address] [place] [address] Phone [phone] Care Team Providers Care Fryer Operator Name Role Phone Nina Haile MD Primary Care Provide r Reason for Visit * Reason Onset Date Comments Appointment 01/08/2024 Encounter Details Date Type Department Care Team (Late st Contact Info) Description 01/08/2024 Telephone Hematology Oncology [facility] [place] [address] [place] [address] Neida Hurtado MD Appointment Allergies Active Allergy Reactions Criticality Noted Date Comments Cimetidine 05/29/1999 Hair thinning Cimetidine Unknown 12/19/2020 Erythromycin 09/08/2000 GI side effects Penicillins 05/29/1999 Phenytoin Sodium 05/29/1999 Rash, hives documented as of this encounter (statuses as of 01/08/2024) Medications Medication Sig Dispensed Refills Start Date [...] as of this encounter (statuses as of 01/08/2024) Active Problems Problem Noted Date Diagnosed Date [...] scanned into Electronic Medical Record LOC PRIM [id number] 12/03/1999 Esophageal reflux 05/29/1999 Idiopathic urticaria History of peptic ulcer disease Overview: ICD-10 update of inactive term Acquired hypothyroidism documented as of this encounter (statuses as of 01/08/2024) Resolved Problems Problem Noted Date Diagnosed Date [...] as of this encounter (statuses as of 01/08/2024) Immunizations Name Administration Dates Next Due Seasonal [...] encounter Miscellaneous Notes * Telephone Encounter - Remedios Hunt OSA - 01/08/2024 12:44 PM EDT Called and left message at [facility] to call clinic needs a new dr appt was kelly pt. The first appt with ronald olmos Needs to be in person documented in this encounter Plan of Treatment Upcoming Encounters Date Type Department Care Team (Late st Contact Info) Description 05/26/2024 1:30 PM EDT Office Visit Allergy/Immunology [employer] [address] [place] [address] Jhon Resendiz MD [address] [facility] [place] [address] 08/04/2024 3:30 PM EDT Telemedicine Hematology Oncology [address] [phone] Neida Hurtado MD Health Maintenance [...] 06/25/2022, Additional history exists GFR 01/04/2025 01/05/2024, 10/06/2023, 12/07/2023, Additional history exists Diabetes Screening 01/04/2027 [...] and were consensually agreed upon. Care Teams Fryer Operator Relationship Specialty Start Date End Date Nina Haile MD [address] [facility] [address] PCP - General Family Medicine 10/25/19 documented as of this encounter
--- NOTE | 2024-03-06 14:35 | Emergency Department Note ---
Impression & Plan Febrile illness, acute, Diarrhea, Hypoxia ED Provider Note NAME: RAMY BUCKLEY AGE: 63 SEX: Female INFORMANT: Patient, EMS ED PROVIDER(S): Fracisco Underwood MD CHIEF COMPLAINT: Fever PLAN: Disposition: Admitted Outpatient prescription management: none Referral: None MEDICAL DECISION MAKING: Patient presented because of fever. Workup was initiated. CBC and chemistry panel were unremarkable except for signs of mild dehydration. BNP and troponin were within normal limits. The patient's ECG was abnormal but not significantly changed from prior. Chest x-ray did have some increased linear markings on the right as well as left. Patient was requiring supplemental oxygen. Patient was gently hydrated. She was treated with a DuoNeb. BioFire testing performed. Catheter urinalysis was also ordered. Catheter urinalysis concerning for infection. After discussion with ED pharmacist and based upon prior history and allergies the patient will require a dose of IV or ertapenem. This was done. CT imaging of the abdomen pelvis as well as CT imaging of the chest performed. No PE or acute intra-abdominal process. Moderate stool noted in the rectum. No obvious pneumonia. Further evaluation and management in the hospital was necessary. Consultation was made with Dr. Jeramie Marques, [facility] hospitalist service. Case discussed and diagnostics were reviewed. Patient was evaluated in ER admitted for further management. Care/management discussed with: modeling agency manager Level of care consideration(s): After review of the information above and other included data, I feel the patient requires escalation of care to admission Triage Nursing notes: reviewed and agree them. Vital Signs: reviewed and remarkable for no significant abnormalities Additional History obtained from: none Chronic Medical/Social Conditions affecting care: Prior stroke and hemiparesis, custodial status Prior/ Outside/ External records reviewed: none Differential Diagnosis: Infection, dehydration, metabolic abnormality, hypo/hyperglycemia, electrolyte disturbance, anemia, hypoxia, cardiac sources, intracerebral event, toxicologic, neurologic, as well as other pathologies. Diagnostics, independently interpreted by me: ECG: Twelve-lead ECG was sinus rhythm PACs at 94 bpm. Inferior and anterior infarcts. Lateral ST depression. When compared to prior studies and there is no significant change. Cardiac Monitoring: Cardiac monitoring ordered by me: The patient was placed on continuous cardiac monitoring and observed. It revealed a sinus rhythm at 74 bpm. Medical decision rules: none Imaging studies: Chest x-ray reveals some linear atelectasis bilaterally. CT imaging of the abdomen pelvis negative for obstruction. Stool in the rectum noted. CT PE study is negative for central pulmonary embolus or pneumonia. I refer you to the EMR for further details. 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 This started today and is documented as 101 per the nursing staff at her home. The patient denied any pain. The patient also notes the following associated symptoms, nausea and diarrhea. The patient has been given oxygen for relieving factors. Current pain is rated as 0/10. EMS noted the patient's pulse oximetry was down to 86% on room air. Patient was reportedly tested for COVID and had a urinalysis performed and EMS stated that they were told this was negative. Pt denies headache, neck pain, chest pain, abdominal pain, significant difficulty breathing, bloody stools. History is limited secondary to the patient's medical acuity and her complicated medical history. PAST MEDICAL HISTORY: See Below, CVA complicated UTI PAST SURGICAL HISTORY: See Below, SOCIAL HISTORY: See Below, resides in nursing facility HOME MEDICATIONS: See Below ALLERGIES: See Below VITALS: See Below PHYSICAL EXAMINATION: GENERAL: Awake, tired-appearing, in no distress HENT: Normocephalic, atraumatic. Oropharynx unremarkable. EYES: Normal conjunctiva. Sclera non-icteric. NECK: Inspection normal. Non-tender. Supple. No nuchal rigidity. FROM. No masses. RESPIRATORY: Clear to auscultation. No wheezes. No rales. Normal respiratory effort. CARDIAC: Normal rate. Normal rhythm. No murmurs. No rubs. Extremities warm and well perfused. Pulses equal. No JVD. GI: Soft, non-distended. No tenderness to palpation. No rebound or guarding. No masses. RECTAL: Deferred. MUSCULOSKELETAL: Atraumatic. Chest examination reveals no tenderness. The back is symmetrical on inspection without obvious abnormality. There is no CVA tenderness to palpation. No joint edema. LOWER EXTREMITIES: Calves are equal size bilaterally and non-tender. No edema. No discoloration. NEURO: Relatively normal sensorium. Answering yes/no questions appropriately. Left hemiparesis present. SKIN: No rash or jaundice noted. PROCEDURES: none CRITICAL CARE: none OBSERVATION NOTE: none Past Med/Surg History Problem List (Updated 03/06/24 @ 15:37 by Fracisco Underwood MD) Hypoxia (Acute) Diarrhea (Acute) Febrile illness, acute (Acute) Metabolic encephalopathy Acute hypernatremia (Acute) AMS (altered mental status) (Acute) Acute encephalopathy Severe sepsis Hypernatremia (Acute) UTI (urinary tract infection) (Acute) History of seizures (Acute) Lethargy (Acute) Skin abnormality (Acute) Altered mental status (Acute) Fever (Acute) Skin abnormality Left hemiparesis History of astrocytoma (Acute) s/p craniotomy/XRT/chemo Essential hypertension Lethargy UTI (urinary tract infection) Chronic hypernatremia DVT prophylaxis TIA (transient ischemic attack) Recurrent urticaria Dysphagia SDH (subdural hematoma) CVA (cerebral vascular accident) (Acute) Syncope (Acute) Brain TIA (Acute) Syncope DVT prophylaxis Hyperlipidemia GERD (gastroesophageal reflux disease) Hypothyroidism History of seizures Irritable bowel syndrome Hypokalemia Stroke-like symptoms Medical History Fibromyalgia Benign paroxysmal positional vertigo, bilateral History of seizure disorder History of peptic ulcer disease Chronic urticaria Irritable bowel syndrome Anxiety Depression Osteoarthritis Hypothyroidism GERD (gastroesophageal reflux disease) Hyperlipidemia Surgical History History of tubal ligation History of D&C History of carpal tunnel surgery of right wrist History of craniotomy Family History Sister Family history of reaction to anesthesia Social History Smoking Status: Former smoker Tobacco Type: Cigarettes Do You Dip or Chew Tobacco: No; Hx Alcohol Use: No Hx Substance Use: No Preferred Language: Dominican Communication Ability: Effective Table Lever Operator Required: No Beliefs That Will Affect Care: None marital status: Current Living Situation: Prison Current Living Situation Comment: [facility] current occupational status: unemployed and disabled 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 Feels Safe at Home: Yes Assistive Devices: Wheelchair Allergies Allergies Allergy/AdvReac Type Severity Reaction Status Date / Time ceftriaxone [From Rocephin] Allergy Intermediate Hives Verified 01/08/24 15:32 Penicillins Allergy Intermediate HIVES Verified 07/14/22 20:09 cimetidine Allergy Unknown ON [facility] Verified 07/14/22 20:09 [place] [facility] erythromycin base Allergy Unknown ON [facility] Verified 07/14/22 20:09 [place] [facility] phenytoin AdvReac Intermediate HIVES Verified 07/14/22 20:09 Home Meds Home Medications Medication Instructions Recorded Confirmed cholecalciferol (vitamin D3) 25 1,000 unit PO QAM 06/06/18 03/06/24 mcg (1,000 unit) capsule (Vitamin D3) cyanocobalamin (vitamin B-12) 500 500 mcg PO QAM 06/06/18 03/06/24 mcg tablet (Vitamin B-12) levothyroxine 50 mcg tablet 50 mcg PO DAILYBB 06/06/18 03/06/24 (Synthroid) linaclotide 72 mcg capsule 72 mcg PO HS 06/06/18 03/06/24 (Linzess) multivitamin 1 tab PO QAM 06/06/18 03/06/24 acetaminophen 500 mg tablet 500 mg PO TID 12/20/18 03/06/24 aspirin 81 mg tablet,delayed 81 mg PO QAM 12/19/20 03/06/24 release cetirizine 10 mg tablet 10 mg PO BID 12/19/20 03/06/24 modafinil 200 mg tablet 200 mg PO QAM 12/19/20 03/06/24 omeprazole 20 mg capsule,delayed 20 mg PO DAILYBB 12/19/20 03/06/24 release potassium chloride 20 mEq 20 meq PO DAILY 12/19/20 03/06/24 tablet,extended release rosuvastatin 40 mg tablet 40 mg PO HS 12/19/20 03/06/24 mirtazapine 15 mg tablet 15 mg PO HS 06/04/22 03/06/24 Magic Mix 1 applic topical TID 07/14/22 01/05/24 carbamazepine 200 mg 200 mg PO BID 07/14/22 03/06/24 capsule,extended release [id number] famotidine 20 mg tablet 20 mg PO BID 01/05/24 03/06/24 hydroxyzine HCl 10 mg tablet 20 mg PO QID 01/05/24 03/06/24 acetaminophen 325 mg tablet 650 mg PO QID PRN Pain 03/06/24 03/06/24 amlodipine 2.5 mg tablet 2.5 mg PO DAILY 03/06/24 03/06/24 bisacodyl 10 mg rectal suppository 10 mg WA DAILY PRN Constipation 03/06/24 03/06/24 (Dulcolax (bisacodyl)) gabapentin 100 mg capsule 100 mg PO DAILY 03/06/24 03/06/24 ipratropium 0.5 mg-albuterol 3 mg 3 ml inhalation Q4H PRN BREATH 03/06/24 03/06/24 (2.5 mg base)/3 mL nebulization soln lidocaine 4 % topical patch 1 patch topical BID 03/06/24 03/06/24 magnesium hydroxide 400 mg/5 mL 30 ml PO DAILY PRN Constipation 03/06/24 03/06/24 oral suspension (Milk of Magnesia) sennosides 8.6 mg capsule (senna) 8.6 mg PO BID PRN Constipation 03/06/24 03/06/24 terconazole 0.8 % vaginal cream 1 appful vaginal DAILY PRN Unknown 03/06/24 03/06/24 Previous Rx's Medication Instructions Recorded magnesium oxide 400 mg (241.3 mg 400 mg PO QAM #30 tabs 07/25/22 magnesium) tablet Results & Data (ED) Vital Signs Vital Signs - 24 hr 03/06/24 14:00 03/06/24 14:12 03/06/24 15:00 Temperature 37.1 C Temperature Source Oral Pulse Rate 89 89 Pulse Rate [Apical] Pulse Rate from SpO2 Sensor Respiratory Rate 20 Respiratory Effort / Characteristics Non-Labored Spontaneous Respiratory Depth Normal Respiratory Pattern Regular Blood Pressure 125/95 108/90 Blood Pressure [Right Arm] Blood Pressure Mean 105 95 Blood Pressure Mean [Right Arm] Blood Pressure Position [Right Arm] Pulse Oximetry 86 L Oxygen Delivery Method Room Air Oxygen Flow Rate Sepsis Recent Fever Within 48 Hours Yes Sepsis New/Unexplained Change in Mental Status N/A Sepsis Action Taken by Nursing No Action Required 03/06/24 15:15 03/06/24 15:30 03/06/24 15:45 Temperature Temperature Source Pulse Rate 88 87 Pulse Rate [Apical] Pulse Rate from SpO2 Sensor 87 87 Respiratory Rate 19 13 Respiratory Effort / Characteristics Respiratory Depth Respiratory Pattern Blood Pressure 134/100 125/94 117/87 Blood Pressure [Right Arm] Blood Pressure Mean 111 104 92 Blood Pressure Mean [Right Arm] Blood Pressure Position [Right Arm] Pulse Oximetry 94 94 Oxygen Delivery Method Nasal Cannula Nasal Cannula Oxygen Flow Rate 4 4 Sepsis Recent Fever Within 48 Hours Sepsis New/Unexplained Change in Mental Status Sepsis Action Taken by Nursing 03/06/24 16:00 03/06/24 16:15 03/06/24 16:30 Temperature Temperature Source Pulse Rate 86 87 88 Pulse Rate [Apical] Pulse Rate from SpO2 Sensor 81 76 87 Respiratory Rate 20 16 14 Respiratory Effort / Characteristics Respiratory Depth Respiratory Pattern Blood Pressure 114/92 123/90 114/87 Blood Pressure [Right Arm] Blood Pressure Mean 99 101 96 Blood Pressure Mean [Right Arm] Blood Pressure Position [Right Arm] Pulse Oximetry 93 95 95 Oxygen Delivery Method Nasal Cannula Nasal Cannula Nasal Cannula Oxygen Flow Rate 4 4 4 Sepsis Recent Fever Within 48 Hours Sepsis New/Unexplained Change in Mental Status Sepsis Action Taken by Nursing 03/06/24 16:45 03/06/24 17:00 03/06/24 17:18 Temperature Temperature Source Pulse Rate 90 88 89 Pulse Rate [Apical] Pulse Rate from SpO2 Sensor 89 88 89 Respiratory Rate 20 17 32 H Respiratory Effort / Characteristics Respiratory Depth Respiratory Pattern Blood Pressure 113/93 134/97 148/68 H Blood Pressure [Right Arm] Blood Pressure Mean 99 109 94 Blood Pressure Mean [Right Arm] Blood Pressure Position [Right Arm] Pulse Oximetry 95 94 93 Oxygen Delivery Method Nasal Cannula Nasal Cannula Nasal Cannula Oxygen Flow Rate 4 4 4 Sepsis Recent Fever Within 48 Hours Sepsis New/Unexplained Change in Mental Status Sepsis Action Taken by Nursing 03/06/24 17:30 03/06/24 17:45 03/06/24 18:00 Temperature Temperature Source Pulse Rate 85 87 Pulse Rate [Apical] Pulse Rate from SpO2 Sensor 85 84 Respiratory Rate 17 18 Respiratory Effort / Characteristics Respiratory Depth Respiratory Pattern Blood Pressure 115/87 112/86 108/79 Blood Pressure [Right Arm] Blood Pressure Mean 96 94 88 Blood Pressure Mean [Right Arm] Blood Pressure Position [Right Arm] Pulse Oximetry 91 93 Oxygen Delivery Method Nasal Cannula Nasal Cannula Oxygen Flow Rate 4 4 Sepsis Recent Fever Within 48 Hours Sepsis New/Unexplained Change in Mental Status Sepsis Action Taken by Nursing 03/06/24 18:09 03/06/24 20:15 Temperature Temperature Source Pulse Rate 84 Pulse Rate [Apical] 74 Pulse Rate from SpO2 Sensor Respiratory Rate 17 Respiratory Effort / Characteristics Non-Labored Spontaneous Respiratory Depth Normal Respiratory Pattern Regular Blood Pressure Blood Pressure [Right Arm] 114/75 Blood Pressure Mean Blood Pressure Mean [Right Arm] 88 Blood Pressure Position [Right Arm] Lying Pulse Oximetry 94 Oxygen Delivery Method Nasal Cannula Oxygen Flow Rate 2 Sepsis Recent Fever Within 48 Hours Sepsis New/Unexplained Change in Mental Status Sepsis Action Taken by Nursing Laboratory Data 03/06/24 14:27 03/06/24 20:54 Lab Results 03/06/24 03/06/24 03/06/24 Range/Units 14:27 14:59 15:25 WBC 6.55 (4.8-10.8) K/ul RBC 4.80 (4.20-5.40) M/uL Hgb 15.3 (12.0-16.0) g/dl Hct 46.4 (37.0-47.0) % MCV 96.7 (80.0-100.0) fL MCH 31.9 (25.0-34.0) pg MCHC 33.0 (32.0-36.0) g/dL RDW Std Deviation 48.1 H (36.4-46.3) fL RDW Coeff of Claudio 13.3 (11.5-14.5) % Plt Count 190 (130-400) K/uL MPV 9.9 (9.4-12.4) fL Immature Gran % (Auto) 0.3 % Neut % (Auto) 56.4 % Lymph % (Auto) 38.0 % Pine % (Auto) 5.3 % Eos % (Auto) 0.0 % Baso % (Auto) 0.0 % Neut # (Auto) 3.69 (1.40-6.50) K/uL Lymph # (Auto) 2.49 (1.20-3.40) K/uL Pine # (Auto) 0.35 (0.11-0.59) K/uL Eos # (Auto) 0.00 (0.00-0.50) K/uL Baso # (Auto) 0.00 (0.00-0.20) K/uL Immature Gran # (Auto) 0.02 (0.01-0.20) K/uL VBG pH 7.41 (7.36-7.41) VBG pCO2 45 (38-50) mmHg VBG pO2 76 mmHg VBG HCO3 29 mmol/L VBG O2 Saturation 96.8 % VBG Base Excess 3.2 mEq/L Sodium 149 H (136-145) mmol/L Potassium 3.9 (3.5-5.1) mmol/L Chloride 114 H (98-107) mmol/L Carbon Dioxide 27 (21-32) mmol/L Anion Gap 8 (3-11) BUN 20 (6-23) mg/dl Creatinine 0.74 (0.6-1.2) mg/dl Est Cr Clr Drug Dosing Not Reportable eGFR 91.42 BUN/Creatinine Ratio 27.0 H (10-20) Glucose 103 H (70-99(Fasting)) mg/dl Lactate 1.4 (0.4-2.0) mmol/L Calcium 8.8 (8.6-10.3) mg/dl Magnesium (1.7-2.4) mg/dl Total Bilirubin 0.6 (0.2-1.0) mg/dl AST 44 H (13-39) U/L ALT 18 (7-52) U/L Alkaline Phosphatase 150 H (34-104) U/L Ammonia (18-72) umol/L Troponin I High Sens 4.4 (0-14) pg/ml B-Natriuretic Peptide 56 (0-100) pg/ml Total Protein 6.9 (6.0-8.3) gm/dl Albumin 3.7 (3.4-5.0) gm/dl Globulin 3.2 (2.5-4.0) gm/dl Albumin/Globulin Ratio 1.2 (0.9-2) Procalcitonin 0.43 (0-0.5) ng/ml Urine Color Urine Appearance (Clear) Urine pH (4.5-7.5) Ur Specific Chase (1.000-1.030) Urine Protein (Negative) Urine Glucose (UA) (Negative) Urine Ketones (Negative) Urine Blood (Negative) Urine Nitrite (Negative) Urine Bilirubin (Negative) Urine Urobilinogen (Negative) Ur Leukocyte Esterase (Negative) Urine WBC (Auto) (0-5) /hpf Urine RBC (Auto) (0-2) /hpf U Hyaline Cast (Auto) (0-2) /lpf U Epithel Cells (Auto) (0-2) /hpf Urine Bacteria (Auto) (None Seen) Amorphous Sediment (None Prsent) Urine Mucus (None Prsent) Adenovirus (PCR) Not Detected (NotDetected) B. pertussis DNA (PCR) Not Detected (NotDetected) B.parapertussis DNA PCR Not Detected (NotDetected) C. pneumoniae DNA (PCR) Not Detected (NotDetected) Coronavirus OC43 (PCR) Not Detected (NotDetected) Coronavirus HKU1 (PCR) Not Detected (NotDetected) Coronavirus 229E (PCR) Not Detected (NotDetected) SARS-CoV-2 (PCR) Not Detected (NotDetected) Coronavirus NL63 (PCR) Not Detected (NotDetected) Human Metapneumovir PCR Not Detected (NotDetected) Influenza Type A (PCR) Not Detected (NotDetected) Influenza Type B (PCR) Not Detected (NotDetected) M. pneumoniae (PCR) Not Detected (NotDetected) Parainfluenza 1 (PCR) Not Detected (NotDetected) Parainfluenza 2 (PCR) Not Detected (NotDetected) Parainfluenza 3 (PCR) Not Detected (NotDetected) Parainfluenza 4 (PCR) Not Detected (NotDetected) RSV (PCR) Not Detected (NotDetected) Entero/Rhino (PCR) Not Detected (NotDetected) 03/06/24 03/06/24 Range/Units 17:00 20:54 WBC (4.8-10.8) K/ul RBC (4.20-5.40) M/uL Hgb (12.0-16.0) g/dl Hct (37.0-47.0) % MCV (80.0-100.0) fL MCH (25.0-34.0) pg MCHC (32.0-36.0) g/dL RDW Std Deviation (36.4-46.3) fL RDW Coeff of Claudio (11.5-14.5) % Plt Count (130-400) K/uL MPV (9.4-12.4) fL Immature Gran % (Auto) % Neut % (Auto) % Lymph % (Auto) % Pine % (Auto) % Eos % (Auto) % Baso % (Auto) % Neut # (Auto) (1.40-6.50) K/uL Lymph # (Auto) (1.20-3.40) K/uL Pine # (Auto) (0.11-0.59) K/uL Eos # (Auto) (0.00-0.50) K/uL Baso # (Auto) (0.00-0.20) K/uL Immature Gran # (Auto) (0.01-0.20) K/uL VBG pH (7.36-7.41) VBG pCO2 (38-50) mmHg VBG pO2 mmHg VBG HCO3 mmol/L VBG O2 Saturation % VBG Base Excess mEq/L Sodium 149 H (136-145) mmol/L Potassium (3.5-5.1) mmol/L Chloride (98-107) mmol/L Carbon Dioxide (21-32) mmol/L Anion Gap (3-11) BUN (6-23) mg/dl Creatinine (0.6-1.2) mg/dl Est Cr Clr Drug Dosing eGFR BUN/Creatinine Ratio (10-20) Glucose (70-99(Fasting)) mg/dl Lactate (0.4-2.0) mmol/L Calcium (8.6-10.3) mg/dl Magnesium 2.1 (1.7-2.4) mg/dl Total Bilirubin (0.2-1.0) mg/dl AST (13-39) U/L ALT (7-52) U/L Alkaline Phosphatase (34-104) U/L Ammonia 34.0 (18-72) umol/L Troponin I High Sens (0-14) pg/ml B-Natriuretic Peptide (0-100) pg/ml Total Protein (6.0-8.3) gm/dl Albumin (3.4-5.0) gm/dl Globulin (2.5-4.0) gm/dl Albumin/Globulin Ratio (0.9-2) Procalcitonin (0-0.5) ng/ml Urine Color Dark Yellow Urine Appearance Cloudy A (Clear) Urine pH 5.0 (4.5-7.5) Ur Specific Chase > 1.045 H (1.000-1.030) Urine Protein 1+ H (Negative) Urine Glucose (UA) Negative (Negative) Urine Ketones 1+ H (Negative) Urine Blood Negative (Negative) Urine Nitrite Negative (Negative) Urine Bilirubin 1+ H (Negative) Urine Urobilinogen Negative (Negative) Ur Leukocyte Esterase Trace H (Negative) Urine WBC (Auto) 11-20 H (0-5) /hpf Urine RBC (Auto) 11-20 H (0-2) /hpf U Hyaline Cast (Auto) >20 H (0-2) /lpf U Epithel Cells (Auto) 3-5 H (0-2) /hpf Urine Bacteria (Auto) 1+ H (None Seen) Amorphous Sediment Present A (None Prsent) Urine Mucus Present A (None Prsent) Adenovirus (PCR) (NotDetected) B. pertussis DNA (PCR) (NotDetected) B.parapertussis DNA PCR (NotDetected) C. pneumoniae DNA (PCR) (NotDetected) Coronavirus OC43 (PCR) (NotDetected) Coronavirus HKU1 (PCR) (NotDetected) Coronavirus 229E (PCR) (NotDetected) SARS-CoV-2 (PCR) (NotDetected) Coronavirus NL63 (PCR) (NotDetected) Human Metapneumovir PCR (NotDetected) Influenza Type A (PCR) (NotDetected) Influenza Type B (PCR) (NotDetected) M. pneumoniae (PCR) (NotDetected) Parainfluenza 1 (PCR) (NotDetected) Parainfluenza 2 (PCR) (NotDetected) Parainfluenza 3 (PCR) (NotDetected) Parainfluenza 4 (PCR) (NotDetected) RSV (PCR) (NotDetected) Entero/Rhino (PCR) (NotDetected) Administered Medications Discontinued Medications Albuterol (Albut/Ipratrop 3mg/0.5mg Neb 3 Ml Vial) 3 ml NEB NOW STA; Protocol Stop: 03/06/24 15:29 Last Admin: 03/06/24 15:46 Dose: 3 ml Documented By: HAYDEE Furosemide (Furosemide Inj 20 Mg/2 Ml Vial) 20 mg IV ONE ONE Stop: 03/06/24 20:38 Last Admin: 03/06/24 21:52 Dose: 20 mg Documented By: Sodium Chloride (Nss) 500 mls @ 999 mls/hr IV .Q31M ONE Stop: 03/06/24 15:56 Last Infusion: 03/06/24 16:38 Dose: Infused Documented By: Admin: 03/06/24 15:46 Dose: 999 mls/hr Documented By: HAYDEE Sodium Chloride (Nss) 1,000 mls @ 125 mls/hr IV .Q8H JOVANY Stop: 03/07/24 15:29 Last Infusion: 03/06/24 20:23 Dose: Infused Documented By: Admin: 03/06/24 16:23 Dose: 125 mls/hr Documented By: HAYDEE Ertapenem (Invanz 1000mg) 1,000 mg in 10 mls @ 2 mls/min IV NOW STA Stop: 03/06/24 19:51 Last Admin: 03/06/24 20:15 Dose: 2 mls/min Documented By: Ioversol (Optiray 320 125ml) 119 ml IV ONCE ONE Stop: 03/06/24 19:08 Last Admin: 03/06/24 19:07 Dose: 119 ml Documented By: JUAN JOSE Miscellaneous (Patient's Height &/Or Weight Needed) 1 each N/A NOW STA Stop: 03/06/24 14:01 Last Admin: 03/06/24 21:53 Dose: 1 each Documented By: Imaging Data Radiologist's Impression: Chest X-Ray 03/06/24 14:29 EXAM: Radiograph of the Chest 1 View INDICATION: Dysphagia. Fever. TECHNIQUE: Frontal view of the chest. COMPARISON: 01/05/2024 FINDINGS: Lungs and pleural spaces: New mild linear atelectasis in the right midlung and left base. No pleural effusion or pneumothorax. Heart: Stable prominent cardiac shadow accentuated by technique. Mediastinum: Normal contour. Bones/joints: Degenerative changes noted throughout the spine. No acute osseous abnormality seen. Soft tissues: No abnormality noted. No radiopaque foreign body noted. Upper abdomen: No abnormality noted. IMPRESSION: New mild linear atelectasis in the right midlung and left base. ACT 112: Negative or not required by law. Electronically signed by Flex Laverne 03-06-2024 2:55 PM Abdomen/Pelvis CT 03/06/24 17:59 Exam(s): CT ABDOMEN + PELVIS With Contrast IV Amt: optiray 320 119ml EXAM: CT Abdomen and Pelvis With Intravenous Contrast CLINICAL HISTORY: Reason for exam: vomiting, diarrhea, hypoxia, fever. TECHNIQUE: Axial computed tomography images of the abdomen and pelvis with intravenous contrast. CTDI is 71.19 mGy and DLP is 2309.72 mGy-cm. Automated exposure control was utilized for the study. A dose lowering technique was utilized adhering to the principles of ALARA. CONTRAST: Patient received optiray 320 119ml of IV contrast COMPARISON: 07/14/22 FINDINGS: Lung bases: Bibasilar subsegmental atelectasis. ABDOMEN: Liver: Unremarkable. No mass. Gallbladder and bile ducts: Unremarkable. No calcified stones. No ductal dilation. Pancreas: Unremarkable. No mass. No ductal dilation. Spleen: Splenomegaly measuring 14 cm. Adrenals: Unremarkable. No mass. Kidneys and ureters: Unremarkable. No solid mass. No hydronephrosis. Stomach and bowel: Rectal fecal impaction with stool-distended rectum measuring 9 cm. No bowel obstruction. No mucosal thickening. PELVIS: Appendix: Normal appendix. Bladder: Decompressed urinary bladder, limiting evaluation. Reproductive: Unremarkable uterus. Simple-appearing right ovarian cyst measuring 38 mm. ABDOMEN and PELVIS: Intraperitoneal space: Unremarkable. No free air, significant free fluid, or fluid collection. Bones/joints: Osteopenia. Mild chronic compression deformities at L1 and L3. No acute fracture or dislocation. Soft tissues: Unremarkable. Vasculature: Atherosclerosis. No abdominal aortic aneurysm. Lymph nodes: Unremarkable. No enlarged lymph nodes. IMPRESSION: 1. Rectal fecal impaction with stool-distended rectum measuring 9 cm. Similar but less pronounced finding was seen on prior CT. 2. Simple-appearing right ovarian cyst measuring 38 mm. This appears stable from 07/14/22. 3. No identified findings to account for fever. Electronically signed by: Estephanie Hawkins M.D. 03/06/24 20:28 PM Chest CTA 03/06/24 17:59 Exam(s): CTA CHEST IV Amt: optiray 320 119ml EXAM: CT Angiography Chest With Intravenous Contrast CLINICAL HISTORY: Reason for exam: hypoxia, fever. TECHNIQUE: Axial computed tomographic angiography images of the chest with intravenous contrast. CTDI is 71.19 mGy and DLP is 2309.72 mGy-cm. Automated exposure control was utilized for the study. A dose lowering technique was utilized adhering to the principles of ALARA. MIP reconstructed images were created and reviewed. COMPARISON: No relevant prior studies available. FINDINGS: Pulmonary arteries: Adequate pulmonary artery opacification. No pulmonary artery enlargement. No evidence of acute pulmonary embolism. Aorta: No acute findings. No aortic aneurysm or dissection. Lungs: Linear bands of atelectasis in the right middle lobe, lingula, and both lower lobes. No CT evidence of pneumonia. No consolidation. Juxta-pleural right middle lobe pulmonary nodule measuring 7 mm (series 2, image 34). Right middle lobe pulmonary micronodule measuring 2 mm (series 2, image 38). Benign intrapulmonary lymph pad along the right minor fissure. Per Fleischner's study guidelines, no follow-up indicated. Right upper lobe pulmonary micronodule measuring 3 mm. Mild septal thickening suggesting mild pulmonary edema. Pleural space: Unremarkable. No significant effusion. No pneumothorax. Heart: Mild cardiomegaly. Coronary artery atherosclerosis. No pericardial effusion. Bones/joints: Osteopenia. No acute fracture or dislocation. Soft tissues: Unremarkable. Lymph nodes: No adenopathy. IMPRESSION: 1. No evidence of acute pulmonary embolism. 2. Mild septal thickening suggesting mild pulmonary edema. 3. Right upper lobe pulmonary micronodule measuring 3 mm. Fleischner Society Guidelines for low-risk or high-risk patients recommend that one should consider chest CT at 12 months due to the location of this nodule. 4. Linear bands of atelectasis in the right middle lobe, lingula, and both lower lobes. No CT evidence of pneumonia. Electronically signed by: Estephanie Hawkins M.D. 03/06/24 20:23 PM Discharge Plan Visit Data Chief Complaint: Fever Stated Complaint: FEVER ED Provider: Fracisco Underwood Discharge Problem: Febrile illness, acute, Diarrhea, Hypoxia Forms Stand Alone Forms: My [facility] [employer] Prescriptions Prescriptions: No Action multivitamin Tablet 1 tab PO QAM cyanocobalamin (vitamin B-12) [Vitamin B-12] 500 mcg Tablet 500 mcg PO QAM levothyroxine [Synthroid] 50 mcg tablet 50 mcg PO DAILYBB cholecalciferol (vitamin D3) [Vitamin D3] 1,000 unit Capsule 1,000 unit PO QAM Linzess 72 mcg capsule 72 mcg PO HS acetaminophen 500 mg Tablet 500 mg PO TID mirtazapine 15 mg tablet 15 mg PO HS Magic Mix 1 applic topical TID Rx Instructions: CLEANSE RIGHT COCCYX AREA WITH NSS OR WOUND CLEANSER, APPLY MAGIC MIX TO THE WOUND BASES Q SHIFT AND PRN.---SILVADENE, NYSTATIN, ZINC 40%, HYDROCORTISONE 1%. carbamazepine 200 mg capsule, ER multiphase 12 hr 200 mg PO BID magnesium oxide 400 mg (241.3 mg magnesium) Tablet 400 mg PO QAM Qty: 30 0RF aspirin 81 mg tablet,delayed release (DR/EC) 81 mg PO QAM omeprazole 20 mg capsule,delayed release(DR/EC) 20 mg PO DAILYBB cetirizine 10 mg Tablet 10 mg PO BID rosuvastatin 40 mg tablet 40 mg PO HS modafinil 200 mg Tablet 200 mg PO QAM potassium chloride 20 mEq Tablet Extended Release 20 meq PO DAILY famotidine 20 mg Tablet 20 mg PO BID hydroxyzine HCl 10 mg Tablet 20 mg PO QID acetaminophen 325 mg Tablet 650 mg PO QID PRN (Reason: Pain) ipratropium-albuterol 0.5 mg-3 mg(2.5 mg base)/3 mL Solution For Nebulization 3 ml INHALATION Q4H PRN (Reason: BREATH) lidocaine 4 % adhesive patch,medicated 1 patch TOPICAL BID terconazole 0.8 % cream 1 appful vaginal DAILY PRN (Reason: Unknown) amlodipine 2.5 mg tablet 2.5 mg PO DAILY magnesium hydroxide [Milk of Magnesia] 400 mg/5 mL Suspension 30 ml PO DAILY PRN (Reason: Constipation) bisacodyl [Dulcolax (bisacodyl)] 10 mg Suppository 10 mg WA DAILY PRN (Reason: Constipation) gabapentin 100 mg capsule 100 mg PO DAILY senna 8.6 mg Capsule 8.6 mg PO BID PRN (Reason: Constipation) Referrals Referrals: Nina Haile MD [Primary Care Provider] -
[2024-03-06 14:47] LABS: Hematocrit (blood only) 46.4 % (37.0-47.0); Hemoglobin 15.3 g/dl (12.0-16.0); Immature Granulocytes # (auto) 0.02 K/uL (0.01-0.20); Immature Granulocytes % (auto) 0.3 %; Lymphocytes # (auto) 2.49 K/uL (1.20-3.40); Mean Corpuscular Hemoglobin 31.9 pg (25.0-34.0); Mean Corpuscular Volume 96.7 fL (80.0-100.0); Mean Platelet Volume 9.9 fL (9.4-12.4); Monocytes # (auto) 0.35 K/uL (0.11-0.59); Monocytes % (auto) 5.3 %; Neutrophils # (auto) 3.69 K/uL (1.40-6.50); Neutrophils % (auto) 56.4 %; Platelet Count 190 K/uL (130-400); RDW Coefficient of Variation 13.3 % (11.5-14.5); RDW Standard Deviation 48.1 fL (36.4-46.3); White Blood Count 6.55 K/ul (4.8-10.8)
--- NOTE | 2024-03-06 14:57 | XRay Report ---
EXAM: Radiograph of the Chest 1 View INDICATION: Dysphagia. Fever. TECHNIQUE: Frontal view of the chest. COMPARISON: 01/05/2024 FINDINGS: Lungs and pleural spaces: New mild linear atelectasis in the right midlung and left base. No pleural effusion or pneumothorax. Heart: Stable prominent cardiac shadow accentuated by technique. Mediastinum: Normal contour. Bones/joints: Degenerative changes noted throughout the spine. No acute osseous abnormality seen. Soft tissues: No abnormality noted. No radiopaque foreign body noted. Upper abdomen: No abnormality noted. IMPRESSION: New mild linear atelectasis in the right midlung and left base. ACT 112: Negative or not required by law. Electronically signed by Laverne Mccord 03-06-2024 2:55 PM
[2024-03-06 15:03] LABS: Alanine Aminotransferase 18 U/L (7-52); Albumin Globulin Ratio 1.2 (0.9-2); Albumin Level 3.7 gm/dl (3.4-5.0); Alkaline Phosphatase 150 U/L (34-104); Anion Gap 8 (3-11); Aspartate Aminotransferase 44 U/L (13-39); Bilirubin,Total 0.6 mg/dl (0.2-1.0); Blood Urea Nitrogen 20 mg/dl (6-23); Calcium 8.8 mg/dl (8.6-10.3); Carbon Dioxide 27 mmol/L (21-32); Chloride 114 mmol/L (98-107); Globulin 3.2 gm/dl (2.5-4.0); Glucose 103 mg/dl (70-99(Fasting)); Potassium 3.9 mmol/L (3.5-5.1); Sodium 149 mmol/L (136-145); Total Protein 6.9 gm/dl (6.0-8.3)
[2024-03-06 15:10] LABS: Base Excess VBG 3.2 mEq/L; HCO3 VBG 29 mmol/L; Oxygen Saturation VBG 96.8 %; PCO2 VBG 45 mmHg (38-50); PO2 VBG 76 mmHg; Troponin I High Sensitivity 4.4 pg/ml (0-14); pH VBG 7.41 (7.36-7.41)
[2024-03-06] MEDS: ALBUT/IPRATROP 3MG/0.5MG NEB 3 ML VIAL NEB STA (15:46)
[2024-03-06] MEDS: SODIUM CHLORIDE 0.9% 500 ML IV ONE (15:46)
[2024-03-06 15:59] LABS: Adenovirus PCR Not Detected (NotDetected); Bordetella parapertussis PCR Not Detected (NotDetected); Bordetella pertussis PCR Not Detected (NotDetected); Chlamydia pneumoniae PCR Not Detected (NotDetected); Coronavirus 229E PCR Not Detected (NotDetected); Coronavirus CoV-2 (COVID19)PCR Not Detected (NotDetected); Coronavirus HKU1 PCR Not Detected (NotDetected); Coronavirus NL63 PCR Not Detected (NotDetected); Coronavirus OC43PCR Not Detected (NotDetected); Human Metapneumovirus PCR Not Detected (NotDetected); Influenza A PCR Not Detected (NotDetected); Influenza B PCR Not Detected (NotDetected); Mycoplasma pneumoniae PCR Not Detected (NotDetected); Parainfluenza Virus 1 PCR Not Detected (NotDetected); Parainfluenza Virus 2 PCR Not Detected (NotDetected); Parainfluenza Virus 3 PCR Not Detected (NotDetected); Parainfluenza Virus 4 PCR Not Detected (NotDetected); Respiratory Syncytial VirusPCR Not Detected (NotDetected); Rhinovirus/Enterovirus PCR Not Detected (NotDetected)
[2024-03-06] MEDS: SODIUM CHLORIDE 0.9% 1,000 ML IV SCH (16:23)
[2024-03-06 17:26] LABS: Appearance Urine Cloudy (Clear); Bacteria Urine Automated 1+ (None Seen); Bilirubin Urine 1+ (Negative); Blood Urine Negative (Negative); Cast Urine Automated >20 /lpf (0-2); Color Urine Dark Yellow; Glucose Urine UA Negative (Negative); Ketones Urine 1+ (Negative); Leukocyte Esterase Urine Trace (Negative); Nitrite Urine Negative (Negative); Protein Urine 1+ (Negative); Specific Gravity Urine > 1.045 (1.000-1.030); Urobilinogen Urine Negative (Negative)
[2024-03-06 17:37] LABS: Amorphous Sediment Urine Present (None Prsent); Mucus Urine Present (None Prsent)
[2024-03-06] MEDS: OPTIRAY 320 125ml IV ONE (19:07)
[2024-03-06] MEDS: ERTAPENEM 1000MG 1,000 MG/10 ML SYR IV STA (20:15)
--- NOTE | 2024-03-06 20:24 | CT Scan Report ---
Exam(s): CTA CHEST IV Amt: optiray 320 119ml EXAM: CT Angiography Chest With Intravenous Contrast CLINICAL HISTORY: Reason for exam: hypoxia, fever. TECHNIQUE: Axial computed tomographic angiography images of the chest with intravenous contrast. CTDI is 71.19 mGy and DLP is 2309.72 mGy-cm. Automated exposure control was utilized for the study. A dose lowering technique was utilized adhering to the principles of ALARA. MIP reconstructed images were created and reviewed. COMPARISON: No relevant prior studies available. FINDINGS: Pulmonary arteries: Adequate pulmonary artery opacification. No pulmonary artery enlargement. No evidence of acute pulmonary embolism. Aorta: No acute findings. No aortic aneurysm or dissection. Lungs: Linear bands of atelectasis in the right middle lobe, lingula, and both lower lobes. No CT evidence of pneumonia. No consolidation. Juxta-pleural right middle lobe pulmonary nodule measuring 7 mm (series 2, image 34). Right middle lobe pulmonary micronodule measuring 2 mm (series 2, image 38). Benign intrapulmonary lymph pad along the right minor fissure. Per Fleischner's study guidelines, no follow-up indicated. Right upper lobe pulmonary micronodule measuring 3 mm. Mild septal thickening suggesting mild pulmonary edema. Pleural space: Unremarkable. No significant effusion. No pneumothorax. Heart: Mild cardiomegaly. Coronary artery atherosclerosis. No pericardial effusion. Bones/joints: Osteopenia. No acute fracture or dislocation. Soft tissues: Unremarkable. Lymph nodes: No adenopathy. IMPRESSION: 1. No evidence of acute pulmonary embolism. 2. Mild septal thickening suggesting mild pulmonary edema. 3. Right upper lobe pulmonary micronodule measuring 3 mm. Fleischner Society Guidelines for low-risk or high-risk patients recommend that one should consider chest CT at 12 months due to the location of this nodule. 4. Linear bands of atelectasis in the right middle lobe, lingula, and both lower lobes. No CT evidence of pneumonia. Electronically signed by: Estephanie Hawkins M.D. 03/06/24 20:23 PM
--- NOTE | 2024-03-06 20:29 | CT Scan Report ---
Exam(s): CT ABDOMEN + PELVIS With Contrast IV Amt: optiray 320 119ml EXAM: CT Abdomen and Pelvis With Intravenous Contrast CLINICAL HISTORY: Reason for exam: vomiting, diarrhea, hypoxia, fever. TECHNIQUE: Axial computed tomography images of the abdomen and pelvis with intravenous contrast. CTDI is 71.19 mGy and DLP is 2309.72 mGy-cm. Automated exposure control was utilized for the study. A dose lowering technique was utilized adhering to the principles of ALARA. CONTRAST: Patient received optiray 320 119ml of IV contrast COMPARISON: 07/14/22 FINDINGS: Lung bases: Bibasilar subsegmental atelectasis. ABDOMEN: Liver: Unremarkable. No mass. Gallbladder and bile ducts: Unremarkable. No calcified stones. No ductal dilation. Pancreas: Unremarkable. No mass. No ductal dilation. Spleen: Splenomegaly measuring 14 cm. Adrenals: Unremarkable. No mass. Kidneys and ureters: Unremarkable. No solid mass. No hydronephrosis. Stomach and bowel: Rectal fecal impaction with stool-distended rectum measuring 9 cm. No bowel obstruction. No mucosal thickening. PELVIS: Appendix: Normal appendix. Bladder: Decompressed urinary bladder, limiting evaluation. Reproductive: Unremarkable uterus. Simple-appearing right ovarian cyst measuring 38 mm. ABDOMEN and PELVIS: Intraperitoneal space: Unremarkable. No free air, significant free fluid, or fluid collection. Bones/joints: Osteopenia. Mild chronic compression deformities at L1 and L3. No acute fracture or dislocation. Soft tissues: Unremarkable. Vasculature: Atherosclerosis. No abdominal aortic aneurysm. Lymph nodes: Unremarkable. No enlarged lymph nodes. IMPRESSION: 1. Rectal fecal impaction with stool-distended rectum measuring 9 cm. Similar but less pronounced finding was seen on prior CT. 2. Simple-appearing right ovarian cyst measuring 38 mm. This appears stable from 07/14/22. 3. No identified findings to account for fever. Electronically signed by: Estephanie Hawkins M.D. 03/06/24 20:28 PM
--- NOTE | 2024-03-06 20:38 | History & Physical Report ---
Date of Service March 06, 2024 Assessment & Plan (1) Encephalopathy: Plan: Encephalopathy History cognitive impairment Multifactorial Hypoxemic respiratory failure, possible CHF, although BNP noted to be normal. Complicated UTI, no sepsis for now, past history ESBL UTI Hypernatremia Home neuropsychotropic medications contributory Rule out carbamazepine toxicity CVA hypertension, stable hyperlipidemia on statin Rx hx seizure disorder on Tegretol astrocytoma status post surgery/chemoradiation excessive sleepiness on modafinil hypothyroidism, euthyroid as of recent outpatient TSH from a few months ago Laxative induced diarrhea, history of chronic constipation rule out C. difficile Incidental finding of SPN past tobacco abuse PCU given CHF concerns Supplemental O2 Lasix 1 dose now TTE re: possible CHF Urine CS, ertapenem given history ESBL Hold neuropsychotropic medications until patient mentation back to baseline D5 water for hypernatremia Check Tegretol level, hold Tegretol for now Stool C. difficile, hold laxatives and Linzess for now Outpatient follow-up surveillance imaging for SPN as per Fleischner criteria DVT prophylaxis. SCDs Re: hx Brain tumor DNR as per patient family prior directives. Patient daughter requesting updates providers. (Miss Bettie Bang, [phone]) Total critical care time was 45 minutes. Text document was generated using [employer]OTE[employer] voice recognition software. It may contain grammatical or spelling errors. Kindly contact undersigned for clarification of any documentation item in question. History of Present Illness Chief Complaint: Low oxygen, fever, lethargy, blank staring as per records. Primary Care Provider: Nina Haile MD History obtained from patient and records. Limited history from patient secondary to cognitive impairment. Medical history significant for CVA, hypertension, hyperlipidemia, seizure disorder, astrocytoma status post surgery/chemoradiation, traumatic brain injury as per records, excessive sleepiness on modafinil, GERD, hypothyroidism, cognitive impairment, chronic urticaria as per records, chronic constipation, history ESBL UTI as per records, past tobacco abuse. Last confinement January 2024 for metabolic encephalopathy secondary to complicated UTI. Patient noted to be febrile at [facility] yesterday. Temperature of 100.6. Patient lethargic and with blank stares. No witnessed seizures. Loose stools noted. O2 sats later noted to be 80s on room air. Patient unable to respond to questions regarding headache, chest pain, cough, SOB, abdominal pain. Ertapenem administered at the ER. Medical History as above Surgical History : Carpal tunnel surgery, right frontal lobectomy, D&C, BTL, for holding, tonsillectomy Family History : Heart disease, hyperthyroidism Personal/Social history : Past tobacco abuse, no EtOH intake, [facility] resident Allergies Allergy/AdvReac Type Severity Reaction Status Date / Time ceftriaxone [From Rocephin] Allergy Intermediate Hives Verified 01/08/24 15:32 Penicillins Allergy Intermediate HIVES Verified 07/14/22 20:09 cimetidine Allergy Unknown ON WIND Verified 07/14/22 20:09 NEW [place] MED LIST erythromycin base Allergy Unknown ON Verified 07/14/22 20:09 [facility] [place] [facility] phenytoin AdvReac Intermediate HIVES Verified 07/14/22 20:09 Home Medications Medication Instructions Recorded Confirmed Type cholecalciferol (vitamin D3) 25 1,000 unit PO QAM 06/06/18 03/06/24 History mcg (1,000 unit) capsule (Vitamin D3) cyanocobalamin (vitamin B-12) 500 500 mcg PO QAM 06/06/18 03/06/24 History mcg tablet (Vitamin B-12) levothyroxine 50 mcg tablet 50 mcg PO DAILYBB 06/06/18 03/06/24 History (Synthroid) linaclotide 72 mcg capsule 72 mcg PO HS 06/06/18 03/06/24 History (Linzess) multivitamin 1 tab PO QAM 06/06/18 03/06/24 History acetaminophen 500 mg tablet 500 mg PO TID 12/20/18 03/06/24 History aspirin 81 mg tablet,delayed 81 mg PO QAM 12/19/20 03/06/24 History release cetirizine 10 mg tablet 10 mg PO BID 12/19/20 03/06/24 History modafinil 200 mg tablet 200 mg PO QAM 12/19/20 03/06/24 History omeprazole 20 mg capsule,delayed 20 mg PO DAILYBB 12/19/20 03/06/24 History release potassium chloride 20 mEq 20 meq PO DAILY 12/19/20 03/06/24 History tablet,extended release rosuvastatin 40 mg tablet 40 mg PO HS 12/19/20 03/06/24 History mirtazapine 15 mg tablet 15 mg PO HS 06/04/22 03/06/24 History Magic Mix 1 applic topical TID 07/14/22 01/05/24 History carbamazepine 200 mg 200 mg PO BID 07/14/22 03/06/24 History capsule,extended release [id number] magnesium oxide 400 mg (241.3 mg 400 mg PO QAM #30 tabs 07/25/22 03/06/24 Rx magnesium) tablet famotidine 20 mg tablet 20 mg PO BID 01/05/24 03/06/24 History hydroxyzine HCl 10 mg tablet 20 mg PO QID 01/05/24 03/06/24 History acetaminophen 325 mg tablet 650 mg PO QID PRN Pain 03/06/24 03/06/24 History amlodipine 2.5 mg tablet 2.5 mg PO DAILY 03/06/24 03/06/24 History bisacodyl 10 mg rectal suppository 10 mg VA DAILY PRN Constipation 03/06/24 History (Dulcolax (bisacodyl)) gabapentin 100 mg capsule 100 mg PO DAILY 03/06/24 03/06/24 History ipratropium 0.5 mg-albuterol 3 mg 3 ml inhalation Q4H PRN BREATH 03/06/24 03/06/24 History (2.5 mg base)/3 mL nebulization soln lidocaine 4 % topical patch 1 patch topical BID 03/06/24 03/06/24 History magnesium hydroxide 400 mg/5 mL 30 ml PO DAILY PRN Constipation 03/06/24 03/06/24 History oral suspension (Milk of Magnesia) sennosides 8.6 mg capsule (senna) 8.6 mg PO BID PRN Constipation 03/06/24 03/06/24 History terconazole 0.8 % vaginal cream 1 appful vaginal DAILY PRN Unknown 03/06/24 03/06/24 History Past Med/Surg History Problem List (Updated 03/07/24 @ 11:31 by Jeramie Marques MD) Encephalopathy Hypoxia (Acute) Diarrhea (Acute) Febrile illness, acute (Acute) Metabolic encephalopathy Acute hypernatremia (Acute) AMS (altered mental status) (Acute) Acute encephalopathy Severe sepsis Hypernatremia (Acute) UTI (urinary tract infection) (Acute) History of seizures (Acute) Lethargy (Acute) Skin abnormality (Acute) Altered mental status (Acute) Fever (Acute) Skin abnormality Left hemiparesis History of astrocytoma (Acute) s/p craniotomy/XRT/chemo Essential hypertension Lethargy UTI (urinary tract infection) Chronic hypernatremia DVT prophylaxis TIA (transient ischemic attack) Recurrent urticaria Dysphagia SDH (subdural hematoma) CVA (cerebral vascular accident) (Acute) Syncope (Acute) Brain TIA (Acute) Syncope DVT prophylaxis Hyperlipidemia GERD (gastroesophageal reflux disease) Hypothyroidism History of seizures Irritable bowel syndrome Hypokalemia Stroke-like symptoms Medical History Fibromyalgia Benign paroxysmal positional vertigo, bilateral History of seizure disorder History of peptic ulcer disease Chronic urticaria Irritable bowel syndrome Anxiety Depression Osteoarthritis Hypothyroidism GERD (gastroesophageal reflux disease) Hyperlipidemia Surgical History History of tubal ligation History of D&C History of carpal tunnel surgery of right wrist History of craniotomy Family History Sister Family history of reaction to anesthesia Social History Smoking Status: Former smoker Do You Dip or Chew Tobacco: No; Hx Alcohol Use: No Hx Substance Use: No Preferred Language: Indonesian Communication Ability: Effective Interior Design Consultant Required: No Beliefs That Will Affect Care: None marital status: Current Living Situation: Longterm Current Living Situation Comment: [facility] current occupational status: unemployed and disabled 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 Feels Safe at Home: Yes Assistive Devices: Wheelchair Review of Systems Review of Systems: Could not be reliably obtained secondary to cognitive impairment Physical Exam Physical Exam: GENERAL: Disoriented, no respiratory distress SKIN: Normal color, warm HEENT: [place] palpebral conjunctivae, no ptosis, dry buccal mucosa, nasal cannula in place NECK : Supple, no tenderness CHEST : Decreased breath sounds, no tenderness HEART : RRR, no obvious murmurs ABDOMEN: Some distention, nontender EXTREMITIES : No LE swelling/tenderness, no other conspicuous deformities noted NEUROLOGIC : Disoriented, no facial asymmetry, gait and stance not assessed Results & Data Results & Data Vital Signs (Past 12 Hours) Vital Signs Temp Pulse Pulse Resp BP BP Pulse Ox 03/06/24 20:15 74 17 114/75 94 03/06/24 18:09 84 03/06/24 18:00 87 18 108/79 93 03/06/24 17:45 112/86 03/06/24 17:30 85 17 115/87 91 03/06/24 17:18 89 32 H 148/68 H 93 03/06/24 17:00 88 17 134/97 94 03/06/24 16:45 90 20 113/93 95 03/06/24 16:30 88 14 114/87 95 03/06/24 16:15 87 16 123/90 95 03/06/24 16:00 86 20 114/92 93 03/06/24 15:45 117/87 03/06/24 15:30 87 13 125/94 94 03/06/24 15:15 88 19 134/100 94 03/06/24 15:00 108/90 03/06/24 14:12 89 03/06/24 14:00 37.1 C 89 20 125/95 86 L O2 Del Method O2 Flow Rate 03/06/24 20:15 Nasal Cannula 2 03/06/24 18:09 03/06/24 18:00 Nasal Cannula 4 03/06/24 17:45 03/06/24 17:30 Nasal Cannula 4 03/06/24 17:18 Nasal Cannula 4 03/06/24 17:00 Nasal Cannula 4 03/06/24 16:45 Nasal Cannula 4 03/06/24 16:30 Nasal Cannula 4 03/06/24 16:15 Nasal Cannula 4 03/06/24 16:00 Nasal Cannula 4 03/06/24 15:45 03/06/24 15:30 Nasal Cannula 4 03/06/24 15:15 Nasal Cannula 4 03/06/24 15:00 03/06/24 14:12 03/06/24 14:00 Room Air Laboratory Results Laboratory Results WBC 6.55 K/ul (4.8-10.8) 03/06/24 14:27 RBC 4.80 M/uL (4.20-5.40) 03/06/24 14:27 Hgb 15.3 g/dl (12.0-16.0) 03/06/24 14:27 Hct 46.4 % (37.0-47.0) 03/06/24 14:27 MCV 96.7 fL (80.0-100.0) 03/06/24 14: MCH 31.9 pg (25.0-34.0) 03/06/24 14: MCHC 33.0 g/dL (32.0-36.0) 03/06/24 14: RDW Std Deviation 48.1 fL (36.4-46.3) H 03/06/24 14: RDW Coeff of Claudio 13.3 % (11.5-14.5) 03/06/24 14: Plt Count 190 K/uL (130-400) 03/06/24 14: MPV 9.9 fL (9.4-12.4) 03/06/24 14: Immature Gran % (Auto) 0.3 % 03/06/24 14: Neut % (Auto) 56.4 % 03/06/24 14: Lymph % (Auto) 38.0 % 03/06/24 14: Lane % (Auto) 5.3 % 03/06/24 14: Eos % (Auto) 0.0 % 03/06/24 14: Baso % (Auto) 0.0 % 03/06/24 14: Neut # (Auto) 3.69 K/uL (1.40-6.50) 03/06/24 14: Lymph # (Auto) 2.49 K/uL (1.20-3.40) 03/06/24 14: Lane # (Auto) 0.35 K/uL (0.11-0.59) 03/06/24 14: Eos # (Auto) 0.00 K/uL (0.00-0.50) 03/06/24 14: Baso # (Auto) 0.00 K/uL (0.00-0.20) 03/06/24 14: Immature Gran # (Auto) 0.02 K/uL (0.01-0.20) 03/06/24 14: VBG pH 7.41 (7.36-7.41) 03/06/24 14: VBG pCO2 45 mmHg (38-50) 03/06/24 14: VBG pO2 76 mmHg 03/06/24 14: VBG HCO3 29 mmol/L 03/06/24 14:27 VBG O2 Saturation 96.8 % 03/06/24 14:27 VBG Base Excess 3.2 mEq/L 03/06/24 14:27 Sodium 149 mmol/L (136-145) H 03/06/24 14:27 Potassium 3.9 mmol/L (3.5-5.1) 03/06/24 14:27 Chloride 114 mmol/L (98-107) H 03/06/24 14:27 Carbon Dioxide 27 mmol/L (21-32) 03/06/24 14:27 Anion Gap 8 (3-11) 03/06/24 14:27 BUN 20 mg/dl (6-23) 03/06/24 14:27 Creatinine 0.74 mg/dl (0.6-1.2) 03/06/24 14:27 Est Cr Clr Drug Dosing Not Reportable 03/06/24 14:27 eGFR 91.42 03/06/24 14:27 BUN/Creatinine Ratio 27.0 (10-20) H 03/06/24 14:27 Glucose 103 mg/dl (70-99(Fasting)) H 03/06/24 14:27 Lactate 1.4 mmol/L (0.4-2.0) 03/06/24 15:25 Calcium 8.8 mg/dl (8.6-10.3) 03/06/24 14:27 Total Bilirubin 0.6 mg/dl (0.2-1.0) 03/06/24 14:27 AST 44 U/L (13-39) H 03/06/24 14:27 ALT 18 U/L (7-52) 03/06/24 14:27 Alkaline Phosphatase 150 U/L (34-104) H 03/06/24 14:27 Troponin I High Sens 4.4 pg/ml (0-14) 03/06/24 14:27 B-Natriuretic Peptide 56 pg/ml (0-100) 03/06/24 14:27 Total Protein 6.9 gm/dl (6.0-8.3) 03/06/24 14:27 Albumin 3.7 gm/dl (3.4-5.0) 03/06/24 14:27 Globulin 3.2 gm/dl (2.5-4.0) 03/06/24 14:27 Albumin/Globulin Ratio 1.2 (0.9-2) 03/06/24 14: Procalcitonin 0.43 ng/ml (0-0.5) 03/06/24 14:27 Urine Color Dark Yellow 03/06/24 17:00 Urine Appearance Cloudy (Clear) A 03/06/24 17:00 Urine pH 5.0 (4.5-7.5) 03/06/24 17:00 Ur Specific [place] > 1.045 (1.000-1.030) H 03/06/24 17:00 Urine Protein 1+ (Negative) H 03/06/24 17:00 Urine Glucose (UA) Negative (Negative) 03/06/24 17:00 Urine Ketones 1+ (Negative) H 03/06/24 17:00 Urine Blood Negative (Negative) 03/06/24 17:00 Urine Nitrite Negative (Negative) 03/06/24 17:00 Urine Bilirubin 1+ (Negative) H 03/06/24 17:00 Urine Urobilinogen Negative (Negative) 03/06/24 17:00 Ur Leukocyte Esterase Trace (Negative) H 03/06/24 17:00 Urine WBC (Auto) 11-20 /hpf (0-5) H 03/06/24 17:00 Urine RBC (Auto) 11-20 /hpf (0-2) H 03/06/24 17:00 U Hyaline Cast (Auto) >20 /lpf (0-2) H 03/06/24 17:00 U Epithel Cells (Auto) 3-5 /hpf (0-2) H 03/06/24 17:00 Urine Bacteria (Auto) 1+ (None Seen) H 03/06/24 17:00 Amorphous Sediment Present (None Prsent) A 03/06/24 17:00 Urine Mucus Present (None Prsent) A 03/06/24 17:00 Adenovirus (PCR) Not Detected (NotDetected) 03/06/24 14:59 B. pertussis DNA (PCR) Not Detected (NotDetected) 03/06/24 14:59 B.parapertussis DNA PCR Not Detected (NotDetected) 03/06/24 14:59 C. pneumoniae DNA (PCR) Not Detected (NotDetected) 03/06/24 14:59 Coronavirus OC43 (PCR) Not Detected (NotDetected) 03/06/24 14:59 Coronavirus HKU1 (PCR) Not Detected (NotDetected) 03/06/24 14:59 Coronavirus 229E (PCR) Not Detected (NotDetected) 03/06/24 14:59 SARS-CoV-2 (PCR) Not Detected (NotDetected) 03/06/24 14:59 Coronavirus NL63 (PCR) Not Detected (NotDetected) 03/06/24 14:59 Human Metapneumovir PCR Not Detected (NotDetected) 03/06/24 14:59 Influenza Type A (PCR) Not Detected (NotDetected) 03/06/24 14:59 Influenza Type B (PCR) Not Detected (NotDetected) 03/06/24 14:59 M. pneumoniae (PCR) Not Detected (NotDetected) 03/06/24 14:59 Parainfluenza 1 (PCR) Not Detected (NotDetected) 03/06/24 14:59 Parainfluenza 2 (PCR) Not Detected (NotDetected) 03/06/24 14:59 Parainfluenza 3 (PCR) Not Detected (NotDetected) 03/06/24 14:59 Parainfluenza 4 (PCR) Not Detected (NotDetected) 03/06/24 14:59 RSV (PCR) Not Detected (NotDetected) 03/06/24 14:59 Entero/Rhino (PCR) Not Detected (NotDetected) 03/06/24 14:59 Impressions Chest X-Ray 03/06/24 14:29 EXAM: Radiograph of the Chest 1 View INDICATION: Dysphagia. Fever. TECHNIQUE: Frontal view of the chest. COMPARISON: 01/05/2024 FINDINGS: Lungs and pleural spaces: New mild linear atelectasis in the right midlung and left base. No pleural effusion or pneumothorax. Heart: Stable prominent cardiac shadow accentuated by technique. Mediastinum: Normal contour. Bones/joints: Degenerative changes noted throughout the spine. No acute osseous abnormality seen. Soft tissues: No abnormality noted. No radiopaque foreign body noted. Upper abdomen: No abnormality noted. IMPRESSION: New mild linear atelectasis in the right midlung and left base. ACT 112: Negative or not required by law. Electronically signed by Laverne Mccord 03-06-2024 2:55 PM Abdomen/Pelvis CT 03/06/24 17:59 Exam(s): CT ABDOMEN + PELVIS With Contrast IV Amt: optiray 320 119ml EXAM: CT Abdomen and Pelvis With Intravenous Contrast CLINICAL HISTORY: Reason for exam: vomiting, diarrhea, hypoxia, fever. TECHNIQUE: Axial computed tomography images of the abdomen and pelvis with intravenous contrast. CTDI is 71.19 mGy and DLP is 2309.72 mGy-cm. Automated exposure control was utilized for the study. A dose lowering technique was utilized adhering to the principles of ALARA. CONTRAST: Patient received optiray 320 119ml of IV contrast COMPARISON: 07/14/22 FINDINGS: Lung bases: Bibasilar subsegmental atelectasis. ABDOMEN: Liver: Unremarkable. No mass. Gallbladder and bile ducts: Unremarkable. No calcified stones. No ductal dilation. Pancreas: Unremarkable. No mass. No ductal dilation. Spleen: Splenomegaly measuring 14 cm. Adrenals: Unremarkable. No mass. Kidneys and ureters: Unremarkable. No solid mass. No hydronephrosis. Stomach and bowel: Rectal fecal impaction with stool-distended rectum measuring 9 cm. No bowel obstruction. No mucosal thickening. PELVIS: Appendix: Normal appendix. Bladder: Decompressed urinary bladder, limiting evaluation. Reproductive: Unremarkable uterus. Simple-appearing right ovarian cyst measuring 38 mm. ABDOMEN and PELVIS: Intraperitoneal space: Unremarkable. No free air, significant free fluid, or fluid collection. Bones/joints: Osteopenia. Mild chronic compression deformities at L1 and L3. No acute fracture or dislocation. Soft tissues: Unremarkable. Vasculature: Atherosclerosis. No abdominal aortic aneurysm. Lymph nodes: Unremarkable. No enlarged lymph nodes. IMPRESSION: 1. Rectal fecal impaction with stool-distended rectum measuring 9 cm. Similar but less pronounced finding was seen on prior CT. 2. Simple-appearing right ovarian cyst measuring 38 mm. This appears stable from 07/14/22. 3. No identified findings to account for fever. Electronically signed by: Estephanie Hawkins M.D. 03/06/24 20:28 PM Chest CTA 03/06/24 17:59 Exam(s): CTA CHEST IV Amt: optiray 320 119ml EXAM: CT Angiography Chest With Intravenous Contrast CLINICAL HISTORY: Reason for exam: hypoxia, fever. TECHNIQUE: Axial computed tomographic angiography images of the chest with intravenous contrast. CTDI is 71.19 mGy and DLP is 2309.72 mGy-cm. Automated exposure control was utilized for the study. A dose lowering technique was utilized adhering to the principles of ALARA. MIP reconstructed images were created and reviewed. COMPARISON: No relevant prior studies available. FINDINGS: Pulmonary arteries: Adequate pulmonary artery opacification. No pulmonary artery enlargement. No evidence of acute pulmonary embolism. Aorta: No acute findings. No aortic aneurysm or dissection. Lungs: Linear bands of atelectasis in the right middle lobe, lingula, and both lower lobes. No CT evidence of pneumonia. No consolidation. Juxta-pleural right middle lobe pulmonary nodule measuring 7 mm (series 2, image 34). Right middle lobe pulmonary micronodule measuring 2 mm (series 2, image 38). Benign intrapulmonary lymph pad along the right minor fissure. Per Fleischner's study guidelines, no follow-up indicated. Right upper lobe pulmonary micronodule measuring 3 mm. Mild septal thickening suggesting mild pulmonary edema. Pleural space: Unremarkable. No significant effusion. No pneumothorax. Heart: Mild cardiomegaly. Coronary artery atherosclerosis. No pericardial effusion. Bones/joints: Osteopenia. No acute fracture or dislocation. Soft tissues: Unremarkable. Lymph nodes: No adenopathy. IMPRESSION: 1. No evidence of acute pulmonary embolism. 2. Mild septal thickening suggesting mild pulmonary edema. 3. Right upper lobe pulmonary micronodule measuring 3 mm. Fleischner Society Guidelines for low-risk or high-risk patients recommend that one should consider chest CT at 12 months due to the location of this nodule. 4. Linear bands of atelectasis in the right middle lobe, lingula, and both lower lobes. No CT evidence of pneumonia. Electronically signed by: Estephanie Hawkins M.D. 03/06/24 20:[address] head: No evidence of acute intracranial process. Diagnostic Findings EKG as per my interpretation :Rate 95, LAD, LAFB, inferior infarct, ST depression lateral leads diffuse T wave abnormalities
[2024-03-06 21:21] LABS: Magnesium 2.1 mg/dl (1.7-2.4)
[2024-03-06] MEDS: FUROSEMIDE INJ 20 MG/2 ML VIAL IV ONE (21:52)
[2024-03-06] MEDS: Patient's HEIGHT &/or WEIGHT Needed STA (21:53)
--- NOTE | 2024-03-06 23:12 | CT Scan Report ---
Exam(s): CT HEAD Without Contrast EXAM: CT Head Without Intravenous Contrast CLINICAL HISTORY: Reason for exam: ams, hx brain tumor. TECHNIQUE: Axial computed tomography images of the head/brain without intravenous contrast. CTDI is 56.88 mGy and DLP is 949.1 mGy-cm. Automated exposure control was utilized for the study. A dose lowering technique was utilized adhering to the principles of ALARA. COMPARISON: No relevant prior studies available. FINDINGS: There is an old right frontal craniotomy. There is no skull fracture. Right frontal sinus is opacified, stable from prior exam. Paranasal sinuses and mastoid air cells are otherwise clear. Cystic resection cavity in the right frontal lobe is stable, associated with stable mild leftward midline shift confined to the anterior cranial fossa. There are similar calcifications within the right basal ganglia. There is volume loss, chronic small vessel ischemic disease, and chronic lacunar infarct in the left thalamus. There is no acute territorial loss of eric-white matter differentiation or acute intracranial hemorrhage. There is no hydrocephalus. Basal cisterns remain patent. Intracranial atherosclerosis is noted. IMPRESSION: No evidence of acute intracranial process. Electronically signed by: Estephanie Hawkins M.D. 03/06/24 23:12 PM
[2024-03-07] MEDS: DEXTROSE 5% 500 ML IV ONE (00:59)
[2024-03-07] MEDS: LEVOTHYROXINE SODIUM 50 MCG TABLET PO SCH (06:10)
[2024-03-07] MEDS: PANTOprazole 40 MG TAB PO SCH (06:10)
[2024-03-07] MEDS: amLODIPine BESYLATE 5 MG TAB PO SCH (08:05)
[2024-03-07] MEDS: CETIRIZINE HCL 10 MG TABLET PO SCH (08:05)
[2024-03-07] MEDS: ASPIRIN 81 MG ECTAB PO SCH (08:07)
[2024-03-07] MEDS: MULTIVITAMIN TAB PO SCH (08:08)
[2024-03-07] MEDS: GABAPENTIN 100 MG CAP PO SCH (08:08)
[2024-03-07] MEDS: CYANOCOBALAMIN (B-12) 500 MCG TABLET PO SCH (08:08)
[2024-03-07] MEDS: ACETAMINOPHEN 500 MG TAB PO SCH (08:09)
[2024-03-07] MEDS: ACETAMINOPHEN 325 MG TAB PO PRN (08:09)
[2024-03-07] MEDS: modafiniL 100 MG TAB PO SCH (08:13)
[2024-03-07] MEDS: LIDOCAINE 5% 1 PATCH TD SCH (08:14)
--- NOTE | 2024-03-07 09:14 | Electrocardiogram Report ---
Test Reason : Blood Pressure : */* mmHG Vent. Rate : 94 BPM Atrial Rate : 94 BPM P-R Int : 172 ms QRS Dur : 62 ms QT Int : 378 ms P-R-T Axes : 16 -27 191 degrees QTcB Int : 472 ms Sinus rhythm Inferior infarct (cited on or before 04-Jun-2022) Anterolateral infarct (cited on or before 04-Jun-2022) Lateral ST depression Low voltage QRS Abnormal ECG When compared with ECG of 05-Jan-2024 10:18, Otherwise no significant change Confirmed by Tracy Peter (Anup) on 03/07/2024 9:14:10 AM Referred By: REFERRED SELF Confirmed By: Tracy Peter
[2024-03-07 11:05] LABS: Basophils # (auto) 0.01 K/uL (0.00-0.20); Basophils % (auto) 0.1 %; Hematocrit (blood only) 42.2 % (37.0-47.0); Hemoglobin 13.8 g/dl (12.0-16.0); Immature Granulocytes # (auto) 0.02 K/uL (0.01-0.20); Immature Granulocytes % (auto) 0.3 %; Lymphocytes # (auto) 2.21 K/uL (1.20-3.40); Lymphocytes % (auto) 32.8 %; Mean Corpuscular Hemoglobin 31.4 pg (25.0-34.0); Mean Corpuscular Hgb Conc 32.7 g/dL (32.0-36.0); Mean Corpuscular Volume 95.9 fL (80.0-100.0); Monocytes # (auto) 0.39 K/uL (0.11-0.59); Monocytes % (auto) 5.8 %; Neutrophils # (auto) 4.11 K/uL (1.40-6.50); Platelet Count 161 K/uL (130-400); RDW Coefficient of Variation 13.2 % (11.5-14.5); RDW Standard Deviation 47.4 fL (36.4-46.3); White Blood Count 6.74 K/ul (4.8-10.8)
[2024-03-07 11:11] LABS: BUN Creatinine Ratio 24.6 (10-20); Calcium 8.2 mg/dl (8.6-10.3); Creatinine Clr Calc Pharmacy 80.3 ml/min; Potassium 3.2 mmol/L (3.5-5.1)
--- NOTE | 2024-03-07 14:26 | Hospitalist Progress Note ---
Date of Service March 07, 2024 Assessment & Plan (1) Encephalopathy: Plan: Metabolic encephalopathy History of cognitive impairment Complicated UTI No sepsis for now, history of ESBL UTI. CT head with no acute finding. Continue with ertapenem 03/06 Follow admitting blood and urine culture. Mentation Getting better, oriented x 2 today. Continue to hold home neuropsychotropic medications. carbamazepine held until level out. Resume carbamazepine as appropriate Hypoxia: O2 saturation noted to be in 80s on room air at presentation. Resp biofire neg, mrsa neg. Chest imaging with concern for mild pulmonary edema. No evidence of PE or pneumonia. BNP WNL, echo with EF of 60 to 65%, grade 1 diastolic dysfunction. LV wall motion normal. on Exam, no crackles and no ble edema. likely it is not CHF. Continue with incentive spirometer and follow clinically. Still monitor for volume overload and respiratory status. c/w tele today. Outpatient follow-up surveillance imaging chest for SPN as per Fleischner criteria. Hypernatremia: Likely secondary to poor p.o. intake prior to arrival ISO confusion. s/p ivf. Now resolved. Other chronic medical conditions: Continue with/resume home meds as able. CVA hypertension, stable hyperlipidemia on statin Rx hx seizure disorder on Tegretol astrocytoma status post surgery/chemoradiation excessive sleepiness on modafinil hypothyroidism, euthyroid as of recent outpatient TSH from a few months ago Laxative induced diarrhea, history of chronic constipation rule out C. difficile Incidental finding of SPN past tobacco abuse DVT prophylaxis. SCDs Re: hx Brain tumor DNR as per patient family prior directives. Patient daughter (Miss Bettie Bang, [phone]) Text document was generated using Vo[employer] voice recognition software. It may contain grammatical or spelling errors. Kindly contact undersigned for clarification of any documentation item in question. Admission and Anticipated Discharge Date Admission Date: March 06, 2024 Subjective Patient was seen and examined at bedside. Patient was lying in bed, on 2 L oxygen via nasal cannula, NAD, resting comfortably. Per RN, patient is eating okay and has moved bowels yesterday. patient reports pain and burning while passing urine. Patient denies any sore throat/belly pain. Patient reports dry cough for 1 day. Physical Exam Physical Exam: GENERAL: Oreinted x 2 (not to person), no respiratory distress, on 2L NC O2 SKIN: Normal color, warm HEENT: [place] palpebral conjunctivae, no ptosis, moist buccal mucosa, nasal cannula in place NECK : Supple, no tenderness CHEST : Decreased breath sounds, no tenderness, no crackles. HEART : RRR, no obvious murmurs ABDOMEN: No distention, nontender EXTREMITIES : No LE swelling/tenderness, no other conspicuous deformities noted NEUROLOGIC : Disoriented, no facial asymmetry, gait and stance not assessed Results & Data Results & Data Vital Signs (Past 12 Hours) Vital Signs Temp Pulse Pulse Resp BP Pulse Ox O2 Del Method 03/07/24 11:00 36.7 C 65 19 94/62 L 94 Nasal Cannula 03/07/24 09:00 Nasal Cannula 03/07/24 07:00 71 16 112/77 93 Nasal Cannula 03/07/24 05:50 70 03/07/24 03:30 Nasal Cannula O2 Flow Rate 03/07/24 11:00 03/07/24 09:00 2 03/07/24 07:00 2 03/07/24 05:50 03/07/24 03:30 2
[2024-03-07] MEDS: POTASSIUM CHLORIDE CRTAB 20 MEQ TABCR PO STA (15:11)
[2024-03-07] MEDS: SODIUM CHLORIDE 0.9% 1,000 ML IV SCH (18:17)
--- NOTE | 2024-03-07 20:55 | Communication Note ---
Date of Service: March 07, 2024 Tegretol level ordered last night only sent out to lab tonight. Result will not be available for about a week as per corn lab technician. Patient currently mentating at baseline as per RN. Resume home Tegretol for seizure prophylaxis.
[2024-03-07] MEDS: ERTAPENEM 1000MG 1,000 MG/10 ML SYR IV SCH (21:05)
[2024-03-07] MEDS: ROSUVASTATIN CALCIUM 20 MG TAB PO SCH (21:05)
[2024-03-07 22:38] LABS: A calco-baum cmplx NotReported Not Detected (NotDetected); Bact fragilis Not Reported Not Detected (NotDetected); Blood Culture Id Panel See PCR Comment (NotDetected); C auris Not Reported Not Detected (NotDetected); Calbicans Not Reported Not Detected (NotDetected); Candida glabrata Not Reported Not Detected (NotDetected); Candida krusei Not Reported Not Detected (NotDetected); Cneoformans/gatti Not Reported Not Detected (NotDetected); Cparapsilosis Not Reported Not Detected (NotDetected); E cloacae compx Not Reported Not Detected (NotDetected); Efaecalis Not Reported Not Detected (NotDetected); Efaecium Not Reported Not Detected (NotDetected); Enterobacterales Not Reported Not Detected (NotDetected); Escherichia coli Not Reported Not Detected (NotDetected); H influenzae Not Reported Not Detected (NotDetected); K aerogenes Not Reported Not Detected (NotDetected); Koxytoca Not Reported Not Detected (NotDetected); Kpneumoniae grp Not Reported Not Detected (NotDetected); Lmonocyt Not Reported Not Detected (NotDetected); N meningitidis Not Reported Not Detected (NotDetected); P aeruginosa Not Reported Not Detected (NotDetected); Proteus spp Not Reported Not Detected (NotDetected); Salmonella spp Not Reported Not Detected (NotDetected); Staph lugdunensis Not Reported Not Detected (NotDetected); Staph spp. Not Reported DETECTED (NotDetected); Staphaureus Not Reported Not Detected (NotDetected); Staphepi Not Reported Not Detected (NotDetected); Stenmaltophilia Not Reported Not Detected (NotDetected); Strep agal(GrpB) Not Reported Not Detected (NotDetected); Strep pneum Not Reported Not Detected (NotDetected); Strep pyog (GrpA) Not Reported Not Detected (NotDetected); Strep spp Not Reported Not Detected (NotDetected)
[2024-03-07 22:39] LABS: Staphylococcus spp. DETECTED (NotDetected)
[2024-03-07] MEDS: hydrOXYzine HCl 10 MG TAB PO SCH (23:44)
[2024-03-07] MEDS: carBAMazepine XR 200 MG TABCR PO SCH (23:44)
[2024-03-08] MEDS: SODIUM CHLOR 0.45% + 20MEQ KCL 20 MEQ/1,000 ML BAG IV ONE (00:33)
--- NOTE | 2024-03-08 14:05 | Hospitalist Progress Note ---
Date of Service March 08, 2024 Assessment & Plan (1) Encephalopathy: Plan: Metabolic encephalopathy History of cognitive impairment Complicated UTI Noted to be febrile at care home with a temperature of 100.6 No sepsis for now, history of ESBL UTI. CT head with no acute finding. Continued with ertapenem 03/06 Urine culture has been negative and 1 out of 4 bottles of admitting blood culture growing gram-positive cocci and identified as staph species likely secondary to contamination Her mentation has improved Ertapenem has been discontinued Clinically much better without any fever and or chills and the patient will be observed Hypoxic respiratory failure O2 saturation noted to be in 80s on room air at presentation. Resp biofire neg, mrsa neg. Chest imaging with concern for mild pulmonary edema. No evidence of PE or pneumonia. BNP WNL, Echo with EF of 60 to 65%, grade 1 diastolic dysfunction. LV wall motion normal. on Exam, no crackles and no ble edema. likely it is not CHF. Continue with incentive spirometer and follow clinically. Still monitor for volume overload and respiratory status. c/w tele today. Outpatient follow-up surveillance imaging chest for SPN as per Fleischner criteria. Has been requiring 3 L to maintain saturation does not have any shortness of breath at rest Hypernatremia: Likely secondary to poor p.o. intake prior to arrival ISO confusion. s/p ivf. Now resolved. Sodium level has been normalized Other chronic medical conditions: Continue with/resume home meds as able. CVA- left hemiaplasia Hypertension, stable Hyperlipidemia on statin Rx hx seizure disorder on Tegretol Astrocytoma status post surgery/chemoradiation Excessive sleepiness on modafinil Hypothyroidism, euthyroid as of recent outpatient TSH from a few months ago Laxative induced diarrhea, history of chronic constipation rule out C. difficile Incidental finding of SPN Past tobacco abuse DVT prophylaxis. SCDs Re: hx Brain tumor DNR as per patient family prior directives. Patient daughter (Miss Bettie Bang, [phone]) Text document was generated using [employer] voice recognition software. It may contain grammatical or spelling errors. Kindly contact undersigned for clarification of any documentation item in question. Admission and Anticipated Discharge Date Admission Date: March 06, 2024 Subjective 03/08/2024 The patient was seen and examined in telemetry unit She has been stable and denies any significant symptoms Remains oriented Has been eating and drinking reasonably Review of Systems Review of Systems: All systems reviewed and are unremarkable except as noted below Physical Exam Physical Exam: Lying in bed without any significant distress. Leaning towards the right side with left hemiplegia Constitutional: well developed, well nourished, + ill appearing and average body habitus Eyes: PERRL, conjunctivae normal, anicteric sclerae ENMT: external ear and nose normal, oropharynx normal Respiratory: no respiratory distress Auscultation: lungs clear to auscultation bilaterally Cardiovascular: Rate/Rhythm: regular rate and regular rhythm; not tachycardic Heart Sounds: normal S1 and normal S2; no murmur Extremities: + edema ( trace edema bilaterally more on the left than the right) Gastrointestinal (Abdomen): Inspection/Auscultation: + abdomen distended and normal bowel sounds Percussion/Palpation: abdomen soft; abdomen nontender Musculoskeletal: no acute arthritis involving any of the joint Neurologic: has dense left hemiplegia. no problem with the speech and has been swallowing well Lymphatic: no cervical or axillary lymphadenopathy Results & Data Results & Data Vital Signs (Past 12 Hours) Vital Signs Temp Pulse Pulse Resp BP Pulse Ox O2 Del Method 03/08/24 12:04 36.7 C 73 19 116/88 95 Nasal Cannula 03/08/24 09:00 64 03/08/24 09:00 Nasal Cannula 03/08/24 07:56 37.0 C 65 18 132/92 97 Nasal Cannula 03/08/24 03:28 36.9 C 66 18 125/82 97 Nasal Cannula O2 Flow Rate 03/08/24 12:04 3.0 03/08/24 09:00 03/08/24 09:00 2 03/08/24 07:56 3.0 03/08/24 03:28 2.5 Medications Administered Current Inpatient Medications Acetaminophen (Acetaminophen 500 Mg Tab) 500 mg PO TID [facility] Stop: 04/06/24 08:59 Last Admin: 03/08/24 08:47 Dose: 500 mg Acetaminophen (Acetaminophen 325 Mg Tab) 325 mg PO Q4H PRN PRN Reason: Pain or Fever Stop: 04/06/24 02:26 Last Admin: 03/07/24 08:09 Dose: 325 mg Amlodipine Besylate (Amlodipine Besylate 5 Mg Tab) 2.5 mg PO DAILY [facility] Stop: 04/06/24 08:59 Last Admin: 03/08/24 08:47 Dose: 2.5 mg Aspirin (Aspirin 81 Mg Ectab) 81 mg PO QAM [facility] Stop: 04/06/24 08:59 Last Admin: 03/08/24 08:48 Dose: 81 mg Carbamazepine (Carbamazepine Xr 200 Mg Tabcr) 200 mg PO BID [facility] Stop: 04/06/24 20:59 Last Admin: 03/08/24 08:48 Dose: 200 mg Cetirizine HCl (Cetirizine Hcl 10 Mg Tablet) 10 mg PO BID [facility] Stop: 04/06/24 08:59 Last Admin: 03/08/24 08:48 Dose: 10 mg Cyanocobalamin (Cyanocobalamin (B-12) 500 Mcg Tablet) 500 mcg PO QAM [facility] Stop: 04/06/24 08:59 Last Admin: 03/08/24 08:48 Dose: 500 mcg Gabapentin (Gabapentin 100 Mg Cap) 100 mg PO DAILY [facility] Stop: 04/06/24 08:59 Last Admin: 03/08/24 08:48 Dose: 100 mg Hydroxyzine HCl (Hydroxyzine Hcl 10 Mg Tab) 10 mg PO QID [facility] Stop: 04/06/24 20:59 Last Admin: 03/08/24 08:48 Dose: 10 mg Levothyroxine Sodium (Levothyroxine Sodium 50 Mcg Tablet) 50 mcg PO DAILYBB [facility] Stop: 04/06/24 06:29 Last Admin: 03/08/24 06:34 Dose: 50 mcg Lidocaine (Lidocaine 5% 1 Patch) 1 patch TD [facility] Stop: 04/06/24 08:59 Last Admin: 03/08/24 08:48 Dose: 1 patch Miscellaneous (Remove Lidoderm Patch) 1 each N/A HS [facility] Stop: 04/06/24 20:59 Last Admin: 03/07/24 21:07 Dose: 1 each Modafinil ([facility]inil 100 Mg Tab) [facility] [place]: 04/06/24 08:59 Last Admin: 03/08/24 08:48 Dose: 200 mg Multivitamins (Multivitamin Tab) 1 tab PO QAM [facility] Stop: 04/06/24 08:59 Last Admin: 03/08/24 08:47 Dose: 1 tab Pantoprazole Sodium (Pantoprazole 40 Mg Tab) 40 mg PO DAILYBB [facility] Stop: 04/06/24 06:29 Last Admin: 03/08/24 06:33 Dose: 40 mg Rosuvastatin Calcium (Rosuvastatin Calcium 20 Mg Tab) 40 mg PO [facility] Stop: 04/06/24 20:59 Last Admin: 03/07/24 21:05 Dose: 40 mg
[2024-03-08] MEDS: NSS + 20MEQ KCL 20 MEQ/1,000 ML BAG IV SCH (16:55)
[2024-03-09 02:10] LABS: Adenovirus F 40/41 PCR Not Detected (NotDetected); Astrovirus PCR Not Detected (NotDetected); Campylobacter PCR Not Detected (NotDetected); Cryptosporidium PCR Not Detected (NotDetected); Cyclospora cayetanensis PCR Not Detected (NotDetected); Entamoeba histolytica PCR Not Detected (NotDetected); Enteroaggregative E.coli(EAEC) Not Detected (NotDetected); Enteropathogenic E.coli (EPEC) Not Detected (NotDetected); Enterotoxigenic E.coli (ETEC) Not Detected (NotDetected); Giardia lamblia PCR Not Detected (NotDetected); Norovirus GI/GII PCR Not Detected (NotDetected); Plesiomonas shigelloides PCR Not Detected (NotDetected); Rotavirus A PCR Not Detected (NotDetected); Salmonella PCR Not Detected (NotDetected); Sapovirus PCR Not Detected (NotDetected); Shiga-like Toxin E.coli (STEC) Not Detected (NotDetected); Shigella/Enteroinvasive E.coli Not Detected (NotDetected); Vibrio cholerae PCR Not Detected (NotDetected); Vibrio species PCR Not Detected (NotDetected); Yersinia enterocolitica PCR Not Detected (NotDetected)
[2024-03-09 08:35] LABS: Hemoglobin 12.8 g/dl (12.0-16.0); Immature Granulocytes # (auto) 0.01 K/uL (0.01-0.20); Immature Granulocytes % (auto) 0.3 %; Lymphocytes # (auto) 1.42 K/uL (1.20-3.40); Mean Corpuscular Hemoglobin 31.8 pg (25.0-34.0); Mean Corpuscular Hgb Conc 32.8 g/dL (32.0-36.0); Mean Platelet Volume 9.8 fL (9.4-12.4); Monocytes # (auto) 0.18 K/uL (0.11-0.59); Monocytes % (auto) 4.6 %; Neutrophils # (auto) 2.33 K/uL (1.40-6.50); Neutrophils % (auto) 59.1 %; Platelet Count 125 K/uL (130-400); RDW Coefficient of Variation 12.8 % (11.5-14.5); Red Blood Count 4.02 M/uL (4.20-5.40); White Blood Count 3.94 K/ul (4.8-10.8)
[2024-03-09 09:09] LABS: BUN Creatinine Ratio 27.8 (10-20); Calcium 7.9 mg/dl (8.6-10.3); Creatinine Clr Calc Pharmacy 93.1 ml/min; Magnesium 1.8 mg/dl (1.7-2.4); Phosphorus 2.8 mg/dl (2.5-4.9); Potassium 3.9 mmol/L (3.5-5.1)
--- NOTE | 2024-03-09 13:17 | Hospitalist Progress Note ---
Date of Service March 09, 2024 Assessment & Plan (1) Encephalopathy: Plan: Metabolic encephalopathy History of cognitive impairment Complicated UTI Noted to be febrile at shelter with a temperature of 100.6 No sepsis for now, history of ESBL UTI. CT head with no acute finding. Continued with ertapenem 03/06 Urine culture has been negative and 1 out of 4 bottles of admitting blood culture growing gram-positive cocci and identified as staph species likely secondary to contamination Her mentation has improved Ertapenem has been discontinued Clinically much better without any fever and or chills and the patient will be observed Encephalopathy has resolved and the patient seems to be at her baseline No signs and or symptoms of infection She has been eating and drinking reasonably She can be discharged to [facility] tomorrow Hypoxic respiratory failure O2 saturation noted to be in 80s on room air at presentation. Resp biofire neg, mrsa neg. Chest imaging with concern for mild pulmonary edema. No evidence of PE or pneumonia. BNP WNL, Echo with EF of 60 to 65%, grade 1 diastolic dysfunction. LV wall motion normal. on Exam, no crackles and no ble edema. likely it is not CHF. Continue with incentive spirometer and follow clinically. Still monitor for volume overload and respiratory status. c/w tele today. Outpatient follow-up surveillance imaging chest for SPN as per Fleischner criteria. Has been requiring 3 L to maintain saturation does not have any shortness of breath at rest She has been requiring 2 L to maintain saturation Hypernatremia: Likely secondary to poor p.o. intake prior to arrival ISO confusion. s/p ivf. Now resolved. Sodium level has been normalized Other chronic medical conditions: Continue with/resume home meds as able. CVA- left hemiaplasia Hypertension, stable Hyperlipidemia on statin Rx hx seizure disorder on Tegretol Astrocytoma status post surgery/chemoradiation Excessive sleepiness on modafinil Hypothyroidism, euthyroid as of recent outpatient TSH from a few months ago Laxative induced diarrhea, history of chronic constipation rule out C. difficile Incidental finding of SPN Past tobacco abuse DVT prophylaxis. SCDs Re: hx Brain tumor DNR as per patient family prior directives. Patient daughter (Miss Bettie Bang, [phone]) Text document was generated using [employer] voice recognition software. It may contain grammatical or spelling errors. Kindly contact undersigned for clarification of any documentation item in question. Admission and Anticipated Discharge Date Admission Date: March 06, 2024 Subjective 03/08/2024 The patient was seen and examined in telemetry unit She has been stable and denies any significant symptoms Remains oriented Has been eating and drinking reasonably 03/09/2024 Patient was seen and examined in telemetry unit She looks much better today and complains to have minimal headache and denies any other symptoms She has been making out enough urine today Review of Systems Review of Systems: All systems reviewed and are unremarkable except as noted below Physical Exam Physical Exam: Lying in bed without any significant distress. Leaning towards the right side with left hemiplegia Constitutional: well developed, well nourished, + ill appearing and average body habitus Eyes: PERRL, conjunctivae normal, anicteric sclerae ENMT: external ear and nose normal, oropharynx normal Respiratory: no respiratory distress Auscultation: lungs clear to auscultation bilaterally Cardiovascular: Rate/Rhythm: regular rate and regular rhythm; not tachycardic Heart Sounds: normal S1 and normal S2; no murmur Extremities: + edema ( trace edema bilaterally more on the left than the right) Gastrointestinal (Abdomen): Inspection/Auscultation: + abdomen distended and normal bowel sounds Percussion/Palpation: abdomen soft; abdomen nontender Musculoskeletal: No acute arthritis involving any of the joint Neurologic: normal touch/pain/proprioception; + does not move all extremities ( Does not move left-sided extremities) Alert and awake Lymphatic: no cervical or axillary lymphadenopathy Results & Data Results & Data Vital Signs (Past 12 Hours) Vital Signs Temp Pulse Pulse Resp BP Pulse Ox O2 Del Method 03/09/24 11:00 36.6 C 70 18 109/54 L 97 Nasal Cannula 03/09/24 07:53 36.8 C 64 19 114/71 94 Nasal Cannula 03/09/24 03:09 36.6 C 70 17 100/63 92 Nasal Cannula 03/09/24 02:58 66 O2 Flow Rate 03/09/24 11:00 2 03/09/24 07:53 2.0 03/09/24 03:09 03/09/24 02:58 Laboratory Results Short CBC 03/09/24 Range/Units 08:07 WBC 3.94 L (4.8-10.8) K/ul Hgb 12.8 (12.0-16.0) g/dl Hct 39.0 (37.0-47.0) % Plt Count 125 L (130-400) K/uL BMP 03/09/24 08:07 Sodium 142 Potassium 3.9 D Chloride 111 H Carbon Dioxide 27 BUN 15 Creatinine 0.54 L Glucose 74 Calcium 7.9 L Medications Administered Current Inpatient Medications Acetaminophen (Acetaminophen 500 Mg Tab) 500 mg PO TID [facility] Stop: 04/06/24 08:59 Last Admin: 03/09/24 08:42 Dose: 500 mg Acetaminophen (Acetaminophen 325 Mg Tab) 325 mg PO Q4H PRN PRN Reason: Pain or Fever Stop: 04/06/24 02:26 Last Admin: 03/07/24 08:09 Dose: 325 mg Amlodipine Besylate (Amlodipine Besylate 5 Mg Tab) 2.5 mg PO DAILY [facility] Stop: 04/06/24 08:59 Last Admin: 03/09/24 08:44 Dose: 2.5 mg Aspirin (Aspirin 81 Mg Ectab) 81 mg PO QAM [facility] Stop: 04/06/24 08:59 Last Admin: 03/09/24 08:45 Dose: 81 mg Carbamazepine (Carbamazepine Xr 200 Mg Tabcr) 200 mg PO BID [facility] Stop: 04/06/24 20:59 Last Admin: 03/09/24 08:45 Dose: 200 mg Cetirizine HCl (Cetirizine Hcl 10 Mg Tablet) 10 mg PO BID [facility] Stop: 04/06/24 08:59 Last Admin: 03/09/24 08:44 Dose: 10 mg Cyanocobalamin (Cyanocobalamin (B-12) 500 Mcg Tablet) 500 mcg PO QAM [facility] Stop: 04/06/24 08:59 Last Admin: 03/09/24 08:44 Dose: 500 mcg Gabapentin (Gabapentin 100 Mg Cap) 100 mg PO DAILY [facility] Stop: 04/06/24 08:59 Last Admin: 03/09/24 08:44 Dose: 100 mg Hydroxyzine HCl (Hydroxyzine Hcl 10 Mg Tab) 10 mg PO QID [facility] Stop: 04/06/24 20:59 Last Admin: 03/09/24 12:29 Dose: 10 mg Levothyroxine Sodium (Levothyroxine Sodium 50 Mcg Tablet) 50 mcg PO DAILYBB [facility] Stop: 04/06/24 06:29 Last Admin: 03/09/24 06:17 Dose: 50 mcg Lidocaine (Lidocaine 5% 1 Patch) 1 patch TD [facility] Stop: 04/06/24 08:59 Last Admin: 03/09/24 08:43 Dose: 1 patch Miscellaneous (Remove Lidoderm Patch) 1 each N/A [facility] Stop: 04/06/24 20:59 Last Admin: 03/08/24 22:06 Dose: 1 each Modafinil (Modafinil 100 Mg Tab) 200 mg PO [facility] Stop: 04/06/24 08:59 Last Admin: 03/09/24 08:42 Dose: 200 mg Multivitamins (Multivitamin Tab) 1 tab PO [facility] Stop: 04/06/24 08:59 Last Admin: 03/09/24 08:43 Dose: 1 tab Pantoprazole Sodium ([facility] 40 Mg [facility]) [facility] Stop: 04/06/24 06:29 Last Admin: 03/09/24 06:17 Dose: 40 mg Rosuvastatin Calcium (Rosuvastatin Calcium 20 Mg Tab) 40 mg PO [facility] Stop: 04/06/24 20:59 Last Admin: 03/08/24 22:07 Dose: 40 mg
[2024-03-10 08:14] VITALS: RESP 18
[2024-03-10 12:04] VITALS: BP 129/81; TEMP 98.4; O2SAT 90
[2024-03-10] MEDS: SODIUM CHLORIDE 0.9% 500 ML IV ONE (12:30)
--- NOTE | 2024-03-10 12:56 | Hospitalist Progress Note ---
Date of Service March 10, 2024 Assessment & Plan (1) Encephalopathy: Plan: Metabolic encephalopathy History of cognitive impairment Complicated UTI Noted to be febrile at senior care with a temperature of 100.6 No sepsis for now, history of ESBL UTI. CT head with no acute finding. Continued with ertapenem 03/06 Urine culture has been negative and 1 out of 4 bottles of admitting blood culture growing gram-positive cocci and identified as staph species likely secondary to contamination Her mentation has improved Ertapenem has been discontinued Clinically much better without any fever and or chills and the patient will be observed Encephalopathy has resolved and the patient seems to be at her baseline No signs and or symptoms of infection She has been eating and drinking reasonably She needs to drink more fluid to avoid dehydration down the line She has been maintained the clear to her baseline and will be transferred to [facility] this afternoon Hypoxic respiratory failure O2 saturation noted to be in 80s on room air at presentation. Resp biofire neg, mrsa neg. Chest imaging with concern for mild pulmonary edema. No evidence of PE or pneumonia. BNP WNL, Echo with EF of 60 to 65%, grade 1 diastolic dysfunction. LV wall motion normal. on Exam, no crackles and no ble edema. likely it is not CHF. Continue with incentive spirometer and follow clinically. Still monitor for volume overload and respiratory status. c/w tele today. Outpatient follow-up surveillance imaging chest for SPN as per Fleischner criteria. Has been requiring 3 L to maintain saturation does not have any shortness of breath at rest She has been requiring 2 L to maintain saturation She will need to continue with her oxygen as before Hypernatremia: Likely secondary to poor p.o. intake prior to arrival ISO confusion. s/p ivf. Now resolved. Sodium level has been normalized Again advised to drink more fluids so that she can avoid hyponatremia Other chronic medical conditions: Continue with/resume home meds as able. CVA- left hemiaplasia Hypertension, stable Hyperlipidemia on statin Rx hx seizure disorder on Tegretol Astrocytoma status post surgery/chemoradiation Excessive sleepiness on modafinil Hypothyroidism, euthyroid as of recent outpatient TSH from a few months ago Laxative induced diarrhea, history of chronic constipation rule out C. difficile Incidental finding of SPN Past tobacco abuse DVT prophylaxis. SCDs Re: hx Brain tumor DNR as per patient family prior directives. Patient daughter (Miss Bettie Bang, [phone]) Text document was generated using [employer] voice recognition software. It may contain grammatical or spelling errors. Kindly contact undersigned for clarification of any documentation item in question. Discussed with the daughter and the patient will be discharged to the [facility] this afternoon Admission and Anticipated Discharge Date Admission Date: March 06, 2024 Subjective 03/08/2024 The patient was seen and examined in telemetry unit She has been stable and denies any significant symptoms Remains oriented Has been eating and drinking reasonably 03/09/2024 Patient was seen and examined in telemetry unit She looks much better today and complains to have minimal headache and denies any other symptoms She has been making out enough urine today 03/10/2024 The patient was seen and examined in telemetry unit She has been stable and does not have any distress at rest Apparently she has not been drinking much fluid and having less urine output She will have 500 mL of normal saline bolus and was advised to drink more fluid and this was conveyed to the daughter he Review of Systems Review of Systems: All systems reviewed and are unremarkable except as noted below Physical Exam Physical Exam: Lying in bed without any significant distress. Leaning towards the right side with left hemiplegia Constitutional: well developed, well nourished, + ill appearing and average body habitus Eyes: PERRL, conjunctivae normal, anicteric sclerae ENMT: external ear and nose normal, oropharynx normal Respiratory: no respiratory distress Auscultation: lungs clear to auscultation bilaterally Cardiovascular: Rate/Rhythm: regular rate and regular rhythm; not tachycardic Heart Sounds: normal S1 and normal S2; no murmur Extremities: + edema ( trace edema bilaterally more on the left than the right) Gastrointestinal (Abdomen): Inspection/Auscultation: + abdomen distended and normal bowel sounds Percussion/Palpation: abdomen soft; abdomen nontender Neurologic: normal touch/pain/proprioception; + does not move all extremities ( Does not move left-sided extremities) Lymphatic: no cervical or axillary lymphadenopathy Results & Data Results & Data Vital Signs (Past 12 Hours) Vital Signs Temp Pulse Pulse Resp BP Pulse Ox O2 Del Method 03/10/24 12:03 36.9 C 76 18 129/81 90 Room Air 03/10/24 08:13 37.0 C 68 18 109/69 91 Room Air 03/10/24 06:00 59 L 03/10/24 01:30 36.7 C 68 16 103/75 96 Room Air Laboratory Results All doctors reviewed Medications Administered Current Inpatient Medications Acetaminophen (Acetaminophen 500 Mg Tab) 500 mg PO TID [facility] Stop: 04/06/24 08:59 Last Admin: 03/10/24 10:00 Dose: 500 mg Acetaminophen (Acetaminophen 325 Mg Tab) 325 mg PO Q4H PRN PRN Reason: Pain or Fever Stop: 04/06/24 02:26 Last Admin: 03/07/24 08:09 Dose: 325 mg Amlodipine Besylate (Amlodipine Besylate 5 Mg Tab) 2.5 mg PO DAILY [facility] Stop: 04/06/24 08:59 Last Admin: 03/10/24 10:01 Dose: 2.5 mg Aspirin (Aspirin 81 Mg Ectab) 81 mg PO QAM [facility] Stop: 04/06/24 08:59 Last Admin: 03/10/24 10:02 Dose: 81 mg Carbamazepine (Carbamazepine Xr 200 Mg Tabcr) 200 mg PO BID [facility] Stop: 04/06/24 20:59 Last Admin: 03/10/24 10:00 Dose: 200 mg Cetirizine HCl (Cetirizine Hcl 10 Mg Tablet) 10 mg PO BID [facility] Stop: 04/06/24 08:59 Last Admin: 03/10/24 10:02 Dose: 10 mg Cyanocobalamin (Cyanocobalamin (B-12) 500 Mcg Tablet) 500 mcg PO QAM [facility] Stop: 04/06/24 08:59 Last Admin: 03/10/24 10:01 Dose: 500 mcg Gabapentin (Gabapentin 100 Mg Cap) 100 mg PO DAILY [facility] Stop: 04/06/24 08:59 Last Admin: 03/10/24 10:01 Dose: 100 mg Hydroxyzine HCl (Hydroxyzine Hcl 10 Mg Tab) 10 mg PO QID [facility] Stop: 04/06/24 20:59 Last Admin: 03/10/24 12:30 Dose: 10 mg Levothyroxine Sodium (Levothyroxine Sodium 50 Mcg Tablet) 50 mcg PO DAILYBB [facility] Stop: 04/06/24 06:29 Last Admin: 03/10/24 06:38 Dose: 50 mcg Lidocaine (Lidocaine 5% 1 Patch) 1 patch TD QAM [facility] Stop: 04/06/24 08:59 Last Admin: 03/10/24 10:01 Dose: 1 patch Miscellaneous (Remove Lidoderm Patch) 1 each N/A [facility] Stop: 04/06/24 20:59 Last Admin: 03/09/24 22:16 Dose: 1 each Modafinil (Modafinil 100 Mg Tab) [facility] [place]: 04/06/24 08:59 Last Admin: 03/10/24 10:01 Dose: 200 mg Multivitamins (Multivitamin Tab) 1 tab PO [facility] Stop: 04/06/24 08:59 Last Admin: 03/10/24 10:02 Dose: 1 tab Pantoprazole Sodium (Pantoprazole 40 Mg Tab) [facility] Stop: 04/06/24 06:29 Last Admin: 03/10/24 06:38 Dose: 40 mg Rosuvastatin Calcium (Rosuvastatin Calcium 20 Mg Tab) 40 mg PO [facility] Stop: 04/06/24 20:59 Last Admin: 03/09/24 22:17 Dose: 40 mg Alert
[2024-03-10 16:24] VITALS: PULSE 76
--- NOTE | 2024-03-11 09:03 | Discharge Summary ---
Date of Service March 11, 2024 Admission HPI Per Admitting Provider History obtained from patient and records. Limited history from patient secondary to cognitive impairment. Medical history significant for CVA, hypertension, hyperlipidemia, seizure disorder, astrocytoma status post surgery/chemoradiation, traumatic brain injury as per records, excessive sleepiness on modafinil, GERD, hypothyroidism, cognitive impairment, chronic urticaria as per records, chronic constipation, history ESBL UTI as per records, past tobacco abuse. Last confinement January 2024 for metabolic encephalopathy secondary to complicated UTI. Patient noted to be febrile at custodial yesterday. Temperature of 100.6. Patient lethargic and with blank stares. No witnessed seizures. Loose stools noted. O2 sats later noted to be 80s on room air. Patient unable to respond to questions regarding headache, chest pain, cough, SOB, abdominal pain. Ertapenem administered at the ER. Medical History as above Surgical History : Carpal tunnel surgery, right frontal lobectomy, D&C, BTL, for holding, tonsillectomy Family History : Heart disease, hyperthyroidism Personal/Social history : Past tobacco abuse, no EtOH intake, custodial resident Admission Exam Per Admitting Provider Physical Exam: GENERAL: Disoriented, no respiratory distress SKIN: Normal color, warm HEENT: [place] palpebral conjunctivae, no ptosis, dry buccal mucosa, nasal cannula in place NECK : Supple, no tenderness CHEST : Decreased breath sounds, no tenderness HEART : RRR, no obvious murmurs ABDOMEN: Some distention, nontender EXTREMITIES : No LE swelling/tenderness, no other conspicuous deformities noted NEUROLOGIC : Disoriented, no facial asymmetry, gait and stance not assessed Principal Diagnosis Metabolic encephalopathyimproved, complicated UTI, hypoxic respiratory failure, hypernatremia, history of stroke with left hemiplegia Discharge Exam Lying in bed without any significant distress. Leaning towards the right side with left hemiplegia Constitutional well developed, well nourished, + ill appearing and average body habitus Eyes PERRL, conjunctivae normal, anicteric sclerae ENMT external ear and nose normal, oropharynx normal Respiratory no respiratory distress Auscultation: lungs clear to auscultation bilaterally Cardiovascular Rate/Rhythm: regular rate and regular rhythm; not tachycardic Heart Sounds: normal S1 and normal S2; no murmur Extremities: + edema ( trace edema bilaterally more on the left than the right) Gastrointestinal (Abdomen) Inspection/Auscultation: + abdomen distended and normal bowel sounds Percussion/Palpation: abdomen soft; abdomen nontender Neurologic normal touch/pain/proprioception; + does not move all extremities ( Does not move left-sided extremities) Lymphatic no cervical or axillary lymphadenopathy Discharge Data Allergies Allergy/AdvReac Type Severity Reaction Status Date / Time ceftriaxone [From Rocephin] Allergy Intermediate Hives Verified 01/08/24 15:32 Penicillins Allergy Intermediate HIVES Verified 07/14/22 20:09 cimetidine Allergy Unknown ON [facility] Verified 07/14/22 20:09 [facility] erythromycin base Allergy Unknown ON [facility] Verified 07/14/22 20:09 [facility] L[facility] phenytoin AdvReac Intermediate HIVES Verified 07/14/22 20:09 Consultations 03/06/24 20:51 ED Decision to Admit Stat Ordered Studies 03/06/24 17:59 CT abd pelvis IV con only Stat CT angio chest PE protocol Stat 03/06/24 21:22 CT head/brain wo con Stat Hospital Course (1) Encephalopathy: Metabolic encephalopathy History of cognitive impairment Complicated UTI Noted to be febrile at custodial with a temperature of 100.6 No sepsis for now, history of ESBL UTI. CT head with no acute finding. Continued with ertapenem 03/06 Urine culture has been negative and 1 out of 4 bottles of admitting blood culture growing gram-positive cocci and identified as staph species likely secondary to contamination Her mentation has improved Ertapenem has been discontinued Clinically much better without any fever and or chills and the patient will be observed Encephalopathy has resolved and the patient seems to be at her baseline No signs and or symptoms of infection She has been eating and drinking reasonably She needs to drink more fluid to avoid dehydration down the line She has been maintained the clear to her baseline and will be transferred to [facility] this afternoon Hypoxic respiratory failure O2 saturation noted to be in 80s on room air at presentation. Resp biofire neg, mrsa neg. Chest imaging with concern for mild pulmonary edema. No evidence of PE or pneumonia. BNP WNL, Echo with EF of 60 to 65%, grade 1 diastolic dysfunction. LV wall motion normal. on Exam, no crackles and no ble edema. likely it is not CHF. Continue with incentive spirometer and follow clinically. Still monitor for volume overload and respiratory status. c/w tele today. Outpatient follow-up surveillance imaging chest for SPN as per Fleischner criteria. Has been requiring 3 L to maintain saturation does not have any shortness of breath at rest She has been requiring 2 L to maintain saturation She will need to continue with her oxygen as before Hypernatremia: Likely secondary to poor p.o. intake prior to arrival ISO confusion. s/p ivf. Now resolved. Sodium level has been normalized Again advised to drink more fluids so that she can avoid hyponatremia Other chronic medical conditions: Continue with/resume home meds as able. CVA- left hemiaplasia Hypertension, stable Hyperlipidemia on statin Rx hx seizure disorder on Tegretol Astrocytoma status post surgery/chemoradiation Excessive sleepiness on modafinil Hypothyroidism, euthyroid as of recent outpatient TSH from a few months ago Laxative induced diarrhea, history of chronic constipation rule out C. difficile Incidental finding of SPN Past tobacco abuse DVT prophylaxis. SCDs Re: hx Brain tumor DNR as per patient family prior directives. Patient daughter (Miss Bettie Bang, [phone]) Text document was generated using [employer] voice recognition software. It may contain grammatical or spelling errors. Kindly contact undersigned for clarification of any documentation item in question. Discussed with the daughter and the patient will be discharged to the [facility] this afternoon Total Time Total Time Spent Total Time Spent (In Minutes): 40 minutes Discharge Plan Discharge Items Patient Disposition: Transfer [facility] Reason For Visit: RESP FAILURE Discharge Diagnosis: Metabolic encephalopathyimproved, complicated UTI, hypoxic respiratory failure, hypernatremia, history of stroke with left hemiplegia Condition on Discharge: Fair Activity: Resume your previous activity Non-emergency contact: Primary Care Provider Call non-emergency contact if: you have any medication questions and your symptoms worsen Follow-up/Referrals: Nina Haile MD [Primary Care Provider] - Diet: Heart Healthy Diet Comment: Minced and moist Addtl Attending Provider Instructions: Please take precaution to avoid fall Strongly advised to drink more fluid to avoid dehydration and hyponatremia Continue physical therapy Take your medications as advised Please have regular follow-up with your healthcare provider Pending Studies at Discharge: No Stand-Alone Forms: My [facility] Skilled Items Patient informed of condition?: Yes DNR: Yes Discharge Level of Care: Skilled Communicable Disease: No Discharge Prognosis: Stable Lines: None Urinary Catheter: Yes Medications and DC Order Prescriptions: Continued multivitamin Tablet 1 tab PO QAM cyanocobalamin (vitamin B-12) [Vitamin B-12] 500 mcg Tablet 500 mcg PO QAM levothyroxine [Synthroid] 50 mcg tablet 50 mcg PO DAILYBB cholecalciferol (vitamin D3) [Vitamin D3] 1,000 unit Capsule 1,000 unit PO QAM Linzess 72 mcg capsule 72 mcg PO HS acetaminophen 500 mg Tablet 500 mg PO TID mirtazapine 15 mg tablet 15 mg PO HS Magic Mix 1 applic topical TID Rx Instructions: CLEANSE RIGHT COCCYX AREA WITH NSS OR WOUND CLEANSER, APPLY MAGIC MIX TO THE WOUND BASES Q SHIFT AND PRN.---SILVADENE, NYSTATIN, ZINC 40%, HYDROCORTISONE 1%. carbamazepine 200 mg capsule, ER multiphase 12 hr 200 mg PO BID magnesium oxide 400 mg (241.3 mg magnesium) Tablet 400 mg PO QAM Qty: 30 0RF aspirin 81 mg tablet,delayed release (DR/EC) 81 mg PO QAM omeprazole 20 mg capsule,delayed release(DR/EC) 20 mg PO DAILYBB cetirizine 10 mg Tablet 10 mg PO BID rosuvastatin 40 mg tablet 40 mg PO HS modafinil 200 mg Tablet 200 mg PO QAM potassium chloride 20 mEq Tablet Extended Release 20 meq PO DAILY famotidine 20 mg Tablet 20 mg PO BID hydroxyzine HCl 10 mg Tablet 20 mg PO QID acetaminophen 325 mg Tablet 650 mg PO QID PRN (Reason: Pain) ipratropium-albuterol 0.5 mg-3 mg(2.5 mg base)/3 mL Solution For Nebulization 3 ml INHALATION Q4H PRN (Reason: BREATH) lidocaine 4 % adhesive patch,medicated 1 patch TOPICAL BID terconazole 0.8 % cream 1 appful vaginal DAILY PRN (Reason: Unknown) amlodipine 2.5 mg tablet 2.5 mg PO DAILY magnesium hydroxide [Milk of Magnesia] 400 mg/5 mL Suspension 30 ml PO DAILY PRN (Reason: Constipation) bisacodyl [Dulcolax (bisacodyl)] 10 mg Suppository 10 mg WI DAILY PRN (Reason: Constipation) gabapentin 100 mg capsule 100 mg PO DAILY senna 8.6 mg Capsule 8.6 mg PO BID PRN (Reason: Constipation) Discharge Orders: Discharge Order (Routine); Ordered 03/10/24 Ordered By: Leslie Owens Admission Data Admit Date/Time: 03/06/24 20:40 Attending Provider: Leslie Owens Admit Provider: Jeramie Marques Primary Care Provider: Nina Haile Other Providers: Jeramie Marques; Alex Soler; [facility] Other Interventions: Discharge Summary Assessment (RN) Last Done: 03/10/24 16:24
== END 2024-03-10 16:24 | DRG 689 ==
LOC: EDSEX → ED 13:59 → SUATTDRO 20:40 → EDINP 20:40 → 2E 03-07 01:43

== ENCOUNTER 2024-06-20 15:51 | Inpatient (IN) ==
--- NOTE | 2024-06-20 16:25 | XRay Report ---
INDICATION: Cough. TECHNIQUE: Frontal radiograph of the chest. COMPARISON: Radiograph from 03/06/2024. FINDINGS: Mild cardiomegaly. Pulmonary vasculature appear within normal limits. Chronic appearing interstitial lung markings. Linear scarring/subsegmental atelectasis in the left lower lobe. No infiltrate, pleural effusion or pneumothorax. No acute osseous abnormality evident. IMPRESSION: No acute cardiopulmonary process. Electronically signed by Juvencio Polk 06-20-2024 4:24 PM
--- NOTE | 2024-06-20 16:35 | Emergency Department Note ---
Impression & Plan Influenza A, Fever, Hypoxia, Acute alteration in mental status ED Provider Note NAME: RAMY BUCKLEY AGE: 63 SEX: F : 1960 ARRIVES VIA: Ambulance INFORMANT: Patient, EMS ED PROVIDER(S): Cedric Duff DO CHIEF COMPLAINT: Fever HPI: The patient is a 63-year-old female who has a history of encephalopathy as well as sepsis in the past who presented to the emergency department for an evaluation of fever and altered mental status. The patient's had symptoms over last few days. She was given Tylenol prior to being transferred to our facility. She lives in a personal usp. The patient is a history of stroke in the past. The patient herself offers no complaints. She does have a slight cough. Further history is obtained from EMS. ROS: See above HPI for pertinent positives & negatives. A total of 10 systems reviewed and were otherwise negative. PAST MEDICAL HISTORY: See Below PAST SURGICAL HISTORY: See Below FAMILY HISTORY: See Below SOCIAL HISTORY: See Below HOME MEDICATIONS: See Below ALLERGIES: See Below VITALS: See Below PHYSICAL EXAMINATION: GENERAL: The patient is awake to verbal commands. She is somewhat listless but answers questions. EYES: The conjunctivae are clear. The pupils are round and reactive. EARS, NOSE, MOUTH AND THROAT: The nose is without any evidence of any deformity. Mucous membranes are dry. NECK: The neck is nontender and supple. RESPIRATORY: Diminished breath sounds are noted in the right base. There is no retractions noted. CARDIOVASCULAR: Regular rate and rhythm noted there no murmurs rubs or gallops normal S1 normal S2. GASTROINTESTINAL: The abdomen is soft. Abdomen is nontender. MUSCULOSKELETAL/EXTREMITIES: There is no evidence of gross deformity full range of motion is noted in the hips and shoulders. SKIN: Skin is warm and dry. Trace pedal edema was noted bilaterally. NEUROLOGIC: Patient is awake to verbal commands. There was left-sided weakness noted consistent with the patient's previous history. MEDICAL DECISION MAKING: The patient is a 63-year-old female who presented to the emergency department from her [facility] for an evaluation of fever and altered mental status. I discussed the patient's laboratory and radiographic studies with her. The patient's daughter was notified by nursing about her condition. She was found to have influenza. She was treated with IV fluids. She was also treated with IV antibiotics given her age and comorbidities that there could be an underlying bacterial infection. I discussed the patient's condition with the on-call [facility] hospitalist group. They have agreed to evaluate the patient in the emergency department for further management and disposition. Triage Nursing notes reviewed. Prior medical records reviewed Vital Signs: reviewed and remarkable for fever tachypnea and tachycardia. Differential diagnosis: Viral syndrome, otitis, pharyngitis, pneumonia, influenza, meningitis, urinary tract infection, sepsis, bacteremia, as well as other pathologies. ER treatment provided: See below Diagnostics interpreted by me: ECG: EKG was obtained in the emergency department. My interpretation is atrial fibrillation at 105 bpm. There is no PVCs noted. Widespread ST depressions were noted. Low voltage was noted throughout. This was compared to a tracing from March 06, 2024. No changes were noted. Cardiac Monitoring: An order was placed for continuous cardiac monitoring. The monitor shows a rate of 100 bpm with atrial fibrillation. Laboratory studies: As stated above and show below. Imaging studies: See below. Radiographic imaging was reviewed by myself Consultation(s): I discussed this case with Dr. Lacey who is on-call for the [facility] hospitalist group. Past Med/Surg History Problem List (Updated 06/20/24 @ 18:54 by Cedric Duff DO) Acute alteration in mental status (Acute) Hypoxia (Acute) Fever (Acute) Influenza A (Acute) Encephalopathy Hypoxia (Acute) Diarrhea (Acute) Febrile illness, acute (Acute) Metabolic encephalopathy Acute hypernatremia (Acute) AMS (altered mental status) (Acute) Acute encephalopathy Severe sepsis Hypernatremia (Acute) UTI (urinary tract infection) (Acute) History of seizures (Acute) Lethargy (Acute) Skin abnormality (Acute) Altered mental status (Acute) Fever (Acute) Skin abnormality Left hemiparesis History of astrocytoma (Acute) s/p craniotomy/XRT/chemo Essential hypertension Lethargy UTI (urinary tract infection) Chronic hypernatremia DVT prophylaxis TIA (transient ischemic attack) Recurrent urticaria Dysphagia SDH (subdural hematoma) CVA (cerebral vascular accident) (Acute) Syncope (Acute) Brain TIA (Acute) Syncope DVT prophylaxis Hyperlipidemia GERD (gastroesophageal reflux disease) Hypothyroidism History of seizures Irritable bowel syndrome Hypokalemia Stroke-like symptoms Medical History Fibromyalgia Benign paroxysmal positional vertigo, bilateral History of seizure disorder History of peptic ulcer disease Chronic urticaria Irritable bowel syndrome Anxiety Depression Osteoarthritis Hypothyroidism GERD (gastroesophageal reflux disease) Hyperlipidemia Surgical History History of tubal ligation History of D&C History of carpal tunnel surgery of right wrist History of craniotomy Family History Sister Family history of reaction to anesthesia Social History Smoking Status: Unknown if ever smoked Do You Dip or Chew Tobacco: No; Hx Alcohol Use: No Hx Substance Use: No Preferred Language: Martiniquais Communication Ability: Impaired Child Day Care Teacher Required: No Beliefs That Will Affect Care: None marital status: Current Living Situation: Detention Current Living Situation Comment: [facility] current occupational status: unemployed and disabled 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 Feels Safe at Home: Yes Assistive Devices: Wheelchair Allergies Allergies Allergy/AdvReac Type Severity Reaction Status Date / Time ceftriaxone [From Rocephin] Allergy Intermediate Hives Verified 01/08/24 15:32 Penicillins Allergy Intermediate HIVES Verified 07/14/22 20:09 cimetidine Allergy Unknown ON Verified 07/14/22 20:09 [place] [facility] erythromycin base Allergy Unknown ON Verified 07/14/22 20:09 [place] [facility] phenytoin AdvReac Intermediate HIVES Verified 07/14/22 20:09 Home Meds Home Medications Medication Instructions Recorded Confirmed cholecalciferol (vitamin D3) 25 1,000 unit PO QAM 06/06/18 06/20/24 mcg (1,000 unit) capsule (Vitamin D3) cyanocobalamin (vitamin B-12) 500 500 mcg PO QAM 06/06/18 06/20/24 mcg tablet (Vitamin B-12) levothyroxine 50 mcg tablet 50 mcg PO DAILYBB 06/06/18 06/20/24 (Synthroid) linaclotide 72 mcg capsule 72 mcg PO HS 06/06/18 06/20/24 (Linzess) multivitamin 1 tab PO QAM 06/06/18 06/20/24 acetaminophen 500 mg tablet 500 mg PO TID 12/20/18 06/20/24 aspirin 81 mg tablet,delayed 81 mg PO QAM 12/19/20 06/20/24 release cetirizine 10 mg tablet 10 mg PO BID 12/19/20 06/20/24 modafinil 200 mg tablet 200 mg PO QAM 12/19/20 06/20/24 omeprazole 20 mg capsule,delayed 20 mg PO DAILYBB 12/19/20 06/20/24 release potassium chloride 20 mEq 20 meq PO DAILY 12/19/20 06/20/24 tablet,extended release rosuvastatin 40 mg tablet 40 mg PO HS 12/19/20 06/20/24 mirtazapine 15 mg tablet 15 mg PO HS 06/04/22 06/20/24 Magic Mix 1 applic topical TID 07/14/22 06/20/24 carbamazepine 200 mg 200 mg PO BID 07/14/22 06/20/24 capsule,extended release [id number] famotidine 20 mg tablet 20 mg PO BID 01/05/24 06/20/24 hydroxyzine HCl 10 mg tablet 20 mg PO QID PRN Other 01/05/24 06/20/24 acetaminophen 325 mg tablet 650 mg PO QID PRN Pain 03/06/24 06/20/24 amlodipine 2.5 mg tablet 2.5 mg PO DAILY 03/06/24 06/20/24 bisacodyl 10 mg rectal suppository 10 mg KS DAILY PRN Constipation 03/06/24 06/20/24 (Dulcolax (bisacodyl)) gabapentin 100 mg capsule 100 mg PO HS 03/06/24 06/20/24 ipratropium 0.5 mg-albuterol 3 mg 3 ml inhalation Q4H PRN BREATH 03/06/24 06/20/24 (2.5 mg base)/3 mL nebulization soln lidocaine 4 % topical patch 1 patch topical BID 03/06/24 06/20/24 magnesium hydroxide 400 mg/5 mL 30 ml PO DAILY PRN Constipation 03/06/24 06/20/24 oral suspension (Milk of Magnesia) sennosides 8.6 mg capsule (senna) 17.2 mg PO BID 03/06/24 06/20/24 diphenhydramine-calamine lotion 1 ea topical Q2H PRN Itching 06/20/24 06/20/24 miconazole nitrate 2 % topical 1 applic topical BID 06/20/24 06/20/24 powder (Antifungal (miconazole)) sodium phosphates 19 gram-7 118 ml KS DAILY PRN Constipation 06/20/24 06/20/24 gram/118 mL enema (Fleet Enema) Previous Rx's Medication Instructions Recorded magnesium oxide 400 mg (241.3 mg 400 mg PO QAM #30 tabs 07/25/22 magnesium) tablet Results & Data (ED) Vital Signs Vital Signs - 24 hr 06/20/24 15:50 06/20/24 16:02 06/20/24 16:18 Temperature 39 C H Temperature Source Oral Pulse Rate 104 H 105 H Pulse Rate [Left Finger] Pulse Rhythm [Left Finger] Pulse Strength [Left Finger] Respiratory Rate 25 H Respiratory Effort / Characteristics Respiratory Depth Respiratory Pattern Blood Pressure 115/80 Blood Pressure [Left Arm] Blood Pressure Mean 91 Blood Pressure Mean [Left Arm] Pulse Oximetry 97 97 Oxygen Delivery Method Room Air Room Air Oxygen Flow Rate Sepsis Recent Fever Within 48 Hours Yes Sepsis New/Unexplained Change in Mental Status Yes Sepsis Action Taken by Nursing Physician Notified 06/20/24 17:20 06/20/24 17:32 06/20/24 18:19 Temperature Temperature Source Pulse Rate 101 H Pulse Rate [Left Finger] 101 H 100 H Pulse Rhythm [Left Finger] Regular Pulse Strength [Left Finger] Normal Respiratory Rate 20 26 H 30 H Respiratory Effort / Characteristics Non-Labored Spontaneous Respiratory Depth Normal Respiratory Pattern Regular Blood Pressure Blood Pressure [Left Arm] 114/75 102/85 Blood Pressure Mean Blood Pressure Mean [Left Arm] 88 90 Pulse Oximetry 88 L 96 93 Oxygen Delivery Method Room Air Nasal Cannula Nasal Cannula Oxygen Flow Rate 2 2 Sepsis Recent Fever Within 48 Hours Sepsis New/Unexplained Change in Mental Status Sepsis Action Taken by Detention Medications Current Medication List: was personally reviewed by me Laboratory Data Attestation: I reviewed the patient's lab results. 06/20/24 17:24 06/20/24 17:24 Lab Results 06/20/24 06/20/24 06/20/24 Range/Units 16:12 16:41 17:24 WBC 3.21 L (4.8-10.8) K/ul RBC 4.15 L (4.20-5.40) M/uL Hgb 13.6 (12.0-16.0) g/dl Hct 41.3 (37.0-47.0) % MCV 99.5 (80.0-100.0) fL MCH 32.8 (25.0-34.0) pg MCHC 32.9 (32.0-36.0) g/dL RDW Std Deviation 47.0 H (36.4-46.3) fL RDW Coeff of Claudio 12.9 (11.5-14.5) % Plt Count 94 L (130-400) K/uL MPV 10.0 (9.4-12.4) fL Immature Gran % (Auto) 0.6 % Neut % (Auto) 78.2 % Lymph % (Auto) 14.3 % [place] % (Auto) 6.9 % Eos % (Auto) 0.0 % Baso % (Auto) 0.0 % Neut # (Auto) 2.51 (1.40-6.50) K/uL Lymph # (Auto) 0.46 L (1.20-3.40) K/uL [place] # (Auto) 0.22 (0.11-0.59) K/uL Eos # (Auto) 0.00 (0.00-0.50) K/uL Baso # (Auto) 0.00 (0.00-0.20) K/uL Immature Gran # (Auto) 0.02 (0.01-0.20) K/uL PT Cancelled INR Cancelled APTT Cancelled PTT Ratio Cancelled VBG pH 7.30 L (7.36-7.41) VBG pCO2 47 (38-50) mmHg VBG pO2 26 mmHg VBG HCO3 23 mmol/L VBG O2 Saturation < 60.0 % VBG Base Excess -3.6 mEq/L Sodium 142 (136-145) mmol/L Potassium 3.8 (3.5-5.1) mmol/L Chloride 108 H (98-107) mmol/L Carbon Dioxide 23 (21-32) mmol/L Anion Gap 11 (3-11) BUN 11 (6-23) mg/dl Creatinine 0.60 (0.6-1.2) mg/dl Est Cr Clr Drug Dosing 77.7 ml/min eGFR 101.42 BUN/Creatinine Ratio 18.3 (10-20) Glucose 75 (70-99(Fasting)) mg/dl Lactate 5.3 H* (0.4-2.0) mmol/L Calcium 7.7 L (8.6-10.3) mg/dl Magnesium 1.6 L (1.7-2.4) mg/dl Total Bilirubin 0.5 (0.2-1.0) mg/dl Direct Bilirubin 0.2 (0-0.2) mg/dl AST 109 H (13-39) U/L ALT 22 (7-52) U/L Alkaline Phosphatase 117 H (34-104) U/L Troponin I High Sens 4.8 (0-14) pg/ml Total Protein 6.0 (6.0-8.3) gm/dl Albumin 3.1 L (3.4-5.0) gm/dl Procalcitonin 0.68 H (0-0.5) ng/ml Urine Color Yellow Urine Appearance Cloudy A (Clear) Urine pH 5.5 (4.5-7.5) Ur Specific [place] >= 1.030 (1.000-1.030) Urine Protein 1+ H (Negative) Urine Glucose (UA) Negative (Negative) Urine Ketones Negative (Negative) Urine Blood 2+ H (Negative) Urine Nitrite Negative (Negative) Urine Bilirubin Negative (Negative) Urine Urobilinogen Negative (Negative) Ur Leukocyte Esterase Negative (Negative) Urine RBC 3-5 H (0-2) /hpf Urine WBC 0-5 (0-5) /hpf Ur Epithelial Cells >20 H (0-2) /hpf Urine Bacteria 4+ H (None Seen) SARS-CoV-2 (PCR) NEGATIVE (Negative) Influenza Type A (PCR) Positive A (Neg) Influenza Type B (PCR) Negative (Neg) RSV (RT-PCR) Negative (Neg) Administered Medications Vancomycin HCl 1,250 mg/ (Sodium Chloride) 525 mls @ 200 mls/hr IV NOW ONE Stop: 06/20/24 21:52 Last Admin: 06/20/24 19:44 Dose: 200 mls/hr Documented By: MAXIME Sodium Chloride (Nss) 1,000 mls @ 80 mls/hr IV .[id number] [id number] Stop: 06/21/24 18:59 Last Admin: 06/20/24 20:00 Dose: 80 mls/hr Documented By: NRB Discontinued Medications Sodium Chloride (Nss) 1,000 mls @ 999 mls/hr IV .Q1H1M ONE Stop: 06/20/24 18:42 Last Infusion: 06/20/24 18:00 Dose: Infused Documented By: Admin: 06/20/24 17:00 Dose: 999 mls/hr Documented By: HAMLET Magnesium Sulfate/Dextrose (Magnesium Sulfate / D5w) 1 gm in 100 mls @ 100 mls/hr IV NOW STA Stop: 06/20/24 19:08 Last Infusion: 06/20/24 18:48 Dose: Infused Documented By: Admin: 06/20/24 18:10 Dose: 100 mls/hr Documented By: HAMLET Sodium Chloride (Nss) 1,000 mls @ 999 mls/hr IV .Q1H1M ONE Stop: 06/20/24 19:24 Last Infusion: 06/20/24 20:00 Dose: Infused Documented By: Admin: 06/20/24 18:47 Dose: 999 mls/hr Documented By: HAMLET Meropenem 500 mg/ Syringe 10 mls @ 2 mls/min IV ONE ONE; Protocol Stop: 06/20/24 18:48 Last Admin: 06/20/24 19:30 Dose: 2 mls/min Documented By: MAXIME Oseltamivir Phosphate (Oseltamivir Phosphate 75 Mg Cap) 75 mg PO NOW STA Stop: 06/20/24 18:10 Last Admin: 06/20/24 18:17 Dose: 75 mg Documented By: HAMLET Imaging Data Attestation: I personally reviewed and interpreted this imaging study as follows: My Impression: 1 view chest x-ray was obtained in the emergency department. My interpretation is no free air or definite infiltrate, final report below. Radiologist's Impression: Chest X-Ray 06/20/24 16:02 INDICATION: Cough. TECHNIQUE: Frontal radiograph of the chest. COMPARISON: Radiograph from 03/06/2024. FINDINGS: Mild cardiomegaly. Pulmonary vasculature appear within normal limits. Chronic appearing interstitial lung markings. Linear scarring/subsegmental atelectasis in the left lower lobe. No infiltrate, pleural effusion or pneumothorax. No acute osseous abnormality evident. IMPRESSION: No acute cardiopulmonary process. Electronically signed by Juvencio [email or web address] 06-20-2024 4:24 PM Discharge Plan Visit Data Chief Complaint: Altered Mental Status ED Provider: Cedric Duff Discharge Problem: Influenza A, Fever, Hypoxia, Acute alteration in mental status Patient Disposition: Being Evaluated by Hospitalist Forms Stand Alone Forms: My [facility] Prescriptions Prescriptions: No Action multivitamin Tablet 1 tab PO QAM cyanocobalamin (vitamin B-12) [Vitamin B-12] 500 mcg Tablet 500 mcg PO QAM levothyroxine [Synthroid] 50 mcg tablet 50 mcg PO DAILYBB cholecalciferol (vitamin D3) [Vitamin D3] 1,000 unit Capsule 1,000 unit PO QAM Linzess 72 mcg capsule 72 mcg PO HS acetaminophen 500 mg Tablet 500 mg PO TID mirtazapine 15 mg tablet 15 mg PO HS Magic Mix 1 applic topical TID Rx Instructions: CLEANSE RIGHT COCCYX AREA WITH NSS OR WOUND CLEANSER, APPLY MAGIC MIX TO THE WOUND BASES Q SHIFT AND PRN.---SILVADENE, NYSTATIN, ZINC 40%, HYDROCORTISONE 1%. carbamazepine 200 mg capsule, ER multiphase 12 hr 200 mg PO BID magnesium oxide 400 mg (241.3 mg magnesium) Tablet 400 mg PO QAM Qty: 30 0RF aspirin 81 mg tablet,delayed release (DR/EC) 81 mg PO QAM omeprazole 20 mg capsule,delayed release(DR/EC) 20 mg PO DAILYBB cetirizine 10 mg Tablet 10 mg PO BID rosuvastatin 40 mg tablet 40 mg PO HS modafinil 200 mg Tablet 200 mg PO QAM potassium chloride 20 mEq Tablet Extended Release 20 meq PO DAILY miconazole nitrate [Antifungal (miconazole)] 2 % Powder 1 applic TOPICAL BID Rx Instructions: end date 07/07/24 Fleet Enema 19-7 gram/118 mL Enema 118 ml KS DAILY PRN (Reason: Constipation) Anti-Itch Lotion 1 ea topical Q2H PRN (Reason: Itching) famotidine 20 mg Tablet 20 mg PO BID hydroxyzine HCl 10 mg Tablet 20 mg PO QID PRN (Reason: Other) acetaminophen 325 mg Tablet 650 mg PO QID PRN (Reason: Pain) ipratropium-albuterol 0.5 mg-3 mg(2.5 mg base)/3 mL Solution For Nebulization 3 ml INHALATION Q4H PRN (Reason: BREATH) lidocaine 4 % adhesive patch,medicated 1 patch TOPICAL BID amlodipine 2.5 mg tablet 2.5 mg PO DAILY magnesium hydroxide [Milk of Magnesia] 400 mg/5 mL Suspension 30 ml PO DAILY PRN (Reason: Constipation) bisacodyl [Dulcolax (bisacodyl)] 10 mg Suppository 10 mg KS DAILY PRN (Reason: Constipation) gabapentin 100 mg capsule 100 mg PO HS senna 8.6 mg Capsule 17.2 mg PO BID Referrals Referrals: Nina Haile MD [Primary Care Provider] -
[2024-06-20 16:59] LABS: Appearance Urine Cloudy (Clear); Bilirubin Urine Negative (Negative); Blood Urine 2+ (Negative); Color Urine Yellow; Glucose Urine UA Negative (Negative); Ketones Urine Negative (Negative); Leukocyte Esterase Urine Negative (Negative); Nitrite Urine Negative (Negative); Protein Urine 1+ (Negative); Specific Gravity Urine >= 1.030 (1.000-1.030); Urobilinogen Urine Negative (Negative); pH Urine 5.5 (4.5-7.5)
[2024-06-20] MEDS: SODIUM CHLORIDE 0.9% 1,000 ML IV ONE ×2 (17:00→18:47)
[2024-06-20 17:04] LABS: Influenza A virus by PCR Positive (Neg); Influenza B virus by PCR Negative (Neg); RSV by PCR Negative (Neg); SARS CoV2 RNA(COVID-19) Ceph NEGATIVE (Negative)
[2024-06-20 17:13] LABS: Epithelial Cell Urine >20 /hpf (0-2)
[2024-06-20 17:15] LABS: Bacteria Urine 4+ (None Seen); WBC Urine 0-5 /hpf (0-5)
[2024-06-20 17:37] LABS: Base Excess VBG -3.6 mEq/L; HCO3 VBG 23 mmol/L; Oxygen Saturation VBG < 60.0 %; PCO2 VBG 47 mmHg (38-50); PO2 VBG 26 mmHg
[2024-06-20 17:50] LABS: Hematocrit (blood only) 41.3 % (37.0-47.0); Hemoglobin 13.6 g/dl (12.0-16.0); Immature Granulocytes # (auto) 0.02 K/uL (0.01-0.20); Immature Granulocytes % (auto) 0.6 %; Lymphocytes # (auto) 0.46 K/uL (1.20-3.40); Lymphocytes % (auto) 14.3 %; Mean Corpuscular Hemoglobin 32.8 pg (25.0-34.0); Mean Corpuscular Hgb Conc 32.9 g/dL (32.0-36.0); Mean Corpuscular Volume 99.5 fL (80.0-100.0); Monocytes # (auto) 0.22 K/uL (0.11-0.59); Monocytes % (auto) 6.9 %; Neutrophils # (auto) 2.51 K/uL (1.40-6.50); Neutrophils % (auto) 78.2 %; Platelet Count 94 K/uL (130-400); RDW Coefficient of Variation 12.9 % (11.5-14.5); Red Blood Count 4.15 M/uL (4.20-5.40); White Blood Count 3.21 K/ul (4.8-10.8)
[2024-06-20 18:01] LABS: Albumin Level 3.1 gm/dl (3.4-5.0); BUN Creatinine Ratio 18.3 (10-20); Bilirubin Direct 0.2 mg/dl (0-0.2); Bilirubin,Total 0.5 mg/dl (0.2-1.0); Calcium 7.7 mg/dl (8.6-10.3); Creatinine Clr Calc Pharmacy 77.7 ml/min; Magnesium 1.6 mg/dl (1.7-2.4); Potassium 3.8 mmol/L (3.5-5.1)
[2024-06-20 18:07] LABS: Troponin I High Sensitivity 4.8 pg/ml (0-14)
[2024-06-20] MEDS: MAGNESIUM SULFATE / D5W 1 GM/100 ML BAG IV STA (18:10)
[2024-06-20] MEDS: OSELTAMIVIR PHOSPHATE 75 MG CAP PO STA (18:17)
[2024-06-20] MEDS ORDERED: VANCOMYCIN CONSULT ACTIVE PRN (18:49)
[2024-06-20] MEDS ORDERED: ACETAMINOPHEN 325 MG TAB PO PRN ×2 (18:49→21:23)
[2024-06-20] MEDS ORDERED: ALUMINUM/MAGNESIUM SUSP 30 ML UDC PO PRN (18:49)
[2024-06-20] MEDS ORDERED: MAGNESIUM HYDROXIDE SUSP 30 ML UDC PO PRN (18:49)
--- NOTE | 2024-06-20 19:13 | History & Physical Report ---
Date of Service June 20, 2024 Assessment & Plan (1) Fever: (2) Influenza A: Plan Assessment/plan Sepsis POA Influenza A Possible UTI Patient presents from rehab from fever and increased lethargy Urinalysis suggestive of infection Influenza A is positive Lactate elevated on admission Will start on meropenem and vancomycin; follow-up on blood culture and urine culture. Reported history of ESBL UTI in the past. Fever could likely due to the influenza A; continue on Tamiflu twice a day for 5 days Continue IV fluid; follow-up on lactate level Chronic medical conditions; CVA- continue on aspirin hypertension,- continue on amlodipine hyperlipidemia on statin Rx hx seizure disorder on Tegretol astrocytoma status post surgery/chemoradiation excessive sleepiness on modafinil DNR/DNI as per advanced directive from the facility DVT SCDs. Updated patient's daughter over the phone; answer questions/queries. She is in agreement with the plan. Time spent evaluating patient, direct bedside care, chart review, placing orders, interpretation of diagnostic studies, discussion with consultants, patient, and family members, as well as other required patient management activities is 75 minutes Please note the above document was generated using voice recognition software. It may contain grammatical, syntax or spelling errors. Any formal questions or concerns about the content, text or information contained within the body of this dictation should be directly addressed to the provider for clarification History of Present Illness Chief Complaint: Fever and lethargy for 1 day Primary Care Provider: Nina Haile MD History obtained from chart review and discussion with ED provider. No history can be obtained from the patient given patient's mentation. Past medical history of astrocytoma status postsurgery/chemoradiation, seizure disorder, CVA, hypertension, excessive sleepiness on modafinil, GERD, hypothyroidism, chronic constipation, history of ESBL UTI as per records, past tobacco use. Last admission in February 2020 for for fever secondary to complicated UTI. Patient is sent from rehab for fever and increased lethargy. Patient was seen at bedside. She was opening her eyes; able to answer yes/no questions briefly; was not able to provide any additional information. She was found to be febrile to 39 C. Lactic acid was 5.3; Pro-Anatoliy elevated to 0.68. Urinalysis positive for infection. Influenza A was positive. Chest x- ray did not show any acute finding. Patient is given IV fluids and Tamiflu and was referred for admission Allergies Allergy/AdvReac Type Severity Reaction Status Date / Time ceftriaxone [From Rocephin] Allergy Intermediate Hives Verified 01/08/24 15:32 Penicillins Allergy Intermediate HIVES Verified 07/14/22 20:09 cimetidine Allergy Unknown ON Verified 07/14/22 20:09 SEALEVEL MED LIST erythromycin base Allergy Unknown ON Verified 07/14/22 20:09 SEALEVEL MED LIST phenytoin AdvReac Intermediate HIVES Verified 07/14/22 20:09 Home Medications Medication Instructions Recorded Confirmed Type cholecalciferol (vitamin D3) 25 1,000 unit PO QAM 06/06/18 06/20/24 History mcg (1,000 unit) capsule (Vitamin D3) cyanocobalamin (vitamin B-12) 500 500 mcg PO QAM 06/06/18 06/20/24 History mcg tablet (Vitamin B-12) levothyroxine 50 mcg tablet 50 mcg PO DAILYBB 06/06/18 06/20/24 History (Synthroid) linaclotide 72 mcg capsule 72 mcg PO HS 06/06/18 06/20/24 History (Linzess) multivitamin 1 tab PO QAM 06/06/18 06/20/24 History acetaminophen 500 mg tablet 500 mg PO TID 12/20/18 06/20/24 History aspirin 81 mg tablet,delayed 81 mg PO QAM 12/19/20 06/20/24 History release cetirizine 10 mg tablet 10 mg PO BID 12/19/20 06/20/24 History modafinil 200 mg tablet 200 mg PO QAM 12/19/20 06/20/24 History omeprazole 20 mg capsule,delayed 20 mg PO DAILYBB 12/19/20 06/20/24 History release potassium chloride 20 mEq 20 meq PO DAILY 12/19/20 06/20/24 History tablet,extended release rosuvastatin 40 mg tablet 40 mg PO HS 12/19/20 06/20/24 History mirtazapine 15 mg tablet 15 mg PO HS 06/04/22 06/20/24 History Magic Mix 1 applic topical TID 07/14/22 06/20/24 History carbamazepine 200 mg 200 mg PO BID 07/14/22 06/20/24 History capsule,extended release [id number] magnesium oxide 400 mg (241.3 mg 400 mg PO QAM #30 tabs 07/25/22 06/20/24 Rx magnesium) tablet famotidine 20 mg tablet 20 mg PO BID 01/05/24 06/20/24 History hydroxyzine HCl 10 mg tablet 20 mg PO QID PRN Other 01/05/24 06/20/24 History acetaminophen 325 mg tablet 650 mg PO QID PRN Pain 03/06/24 06/20/24 History amlodipine 2.5 mg tablet 2.5 mg PO DAILY 03/06/24 06/20/24 History bisacodyl 10 mg rectal suppository 10 mg AR DAILY PRN Constipation 03/06/24 06/20/24 History (Dulcolax (bisacodyl)) gabapentin 100 mg capsule 100 mg PO HS 03/06/24 06/20/24 History ipratropium 0.5 mg-albuterol 3 mg 3 ml inhalation Q4H PRN BREATH 03/06/24 06/20/24 History (2.5 mg base)/3 mL nebulization soln lidocaine 4 % topical patch 1 patch topical BID 03/06/24 06/20/24 History magnesium hydroxide 400 mg/5 mL 30 ml PO DAILY PRN Constipation 03/06/24 06/20/24 History oral suspension (Milk of Magnesia) sennosides 8.6 mg capsule (senna) 17.2 mg PO BID 03/06/24 06/20/24 History diphenhydramine-calamine lotion 1 ea topical Q2H PRN Itching 06/20/24 06/20/24 History miconazole nitrate 2 % topical 1 applic topical BID 06/20/24 06/20/24 History powder (Antifungal (miconazole)) sodium phosphates 19 gram-7 118 ml AR DAILY PRN Constipation 06/20/24 06/20/24 History gram/118 mL enema (Fleet Enema) Past Med/Surg History Problem List (Updated 06/20/24 @ 18:54 by Cedric Duff DO) Acute alteration in mental status (Acute) Hypoxia (Acute) Fever (Acute) Influenza A (Acute) Encephalopathy Hypoxia (Acute) Diarrhea (Acute) Febrile illness, acute (Acute) Metabolic encephalopathy Acute hypernatremia (Acute) AMS (altered mental status) (Acute) Acute encephalopathy Severe sepsis Hypernatremia (Acute) UTI (urinary tract infection) (Acute) History of seizures (Acute) Lethargy (Acute) Skin abnormality (Acute) Altered mental status (Acute) Fever (Acute) Skin abnormality Left hemiparesis History of astrocytoma (Acute) s/p craniotomy/XRT/chemo Essential hypertension Lethargy UTI (urinary tract infection) Chronic hypernatremia DVT prophylaxis TIA (transient ischemic attack) Recurrent urticaria Dysphagia SDH (subdural hematoma) CVA (cerebral vascular accident) (Acute) Syncope (Acute) Brain TIA (Acute) Syncope DVT prophylaxis Hyperlipidemia GERD (gastroesophageal reflux disease) Hypothyroidism History of seizures Irritable bowel syndrome Hypokalemia Stroke-like symptoms Medical History Fibromyalgia Benign paroxysmal positional vertigo, bilateral History of seizure disorder History of peptic ulcer disease Chronic urticaria Irritable bowel syndrome Anxiety Depression Osteoarthritis Hypothyroidism GERD (gastroesophageal reflux disease) Hyperlipidemia Surgical History History of tubal ligation History of D&C History of carpal tunnel surgery of right wrist History of craniotomy Family History Sister Family history of reaction to anesthesia Social History Smoking Status: Unknown if ever smoked Do You Dip or Chew Tobacco: No; Hx Alcohol Use: No Hx Substance Use: No Preferred Language: [place]ican Communication Ability: Impaired Brisket Puller Required: No Beliefs That Will Affect Care: None marital status: Current Living Situation: Jail Current Living Situation Comment: [facility] fonseca current occupational status: unemployed and disabled 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 Head: Scar from previous surgery present. Respiratory: Bilateral vesicular breath sound. Cardiovascular: RRR, no murmur, no edema Vessels: no JVD or carotid bruit Chest: normal inspection of chest Abdomen: normal bowel sounds, soft, nontender, no hepatosplenomegaly Musculoskeletal: no cyanosis or clubbing, extremities motor strength 5/5 Skin: no rashes, warm and dry normal turgor Neurologic: PERRL, EOMI, does not follow commands. Results & Data Results & Data Vital Signs (Past 12 Hours) Vital Signs Temp Pulse Pulse Resp BP BP Pulse Ox 06/20/24 18:19 100 H 30 H 102/85 93 06/20/24 17:32 101 H 26 H 96 06/20/24 17:20 101 H 20 114/75 88 L 06/20/24 16:18 105 H 06/20/24 16:02 97 06/20/24 15:50 39 C H 104 H 25 H 115/80 97 O2 Del Method O2 Flow Rate 06/20/24 18:19 Nasal Cannula 2 06/20/24 17:32 Nasal Cannula 2 06/20/24 17:20 Room Air 06/20/24 16:18 06/20/24 16:02 Room Air 06/20/24 15:50 Room Air
[2024-06-20] MEDS: MEROPENEM 500 MG in SYRINGE 0 ML IV ONE (19:30)
[2024-06-20] MEDS: VANCOMYCIN HCL 1,250 MG in SODIUM CHLORIDE 0.9% 500 ML IV ONE (19:44)
[2024-06-20] MEDS: SODIUM CHLORIDE 0.9% 1,000 ML IV SCH (20:00)
[2024-06-20 20:26] LABS: INR 1.1 (0.9-1.1); Partial Thromboplastin Ratio 1.1; Partial Thromboplastin Time 30 Seconds (21-31); Prothrombin Time 11.8 Seconds (9.0-12.0)
[2024-06-20] MEDS ORDERED: hydrOXYzine HCl 10 MG TAB PO PRN (21:23)
[2024-06-20] MEDS ORDERED: SOD PHOSPHATE/SOD BIPHOSPHATE ENEMA 132 ML BTL PR PRN (21:23)
[2024-06-20] MEDS ORDERED: ALBUT/IPRATROP 3MG/0.5MG NEB 3 ML VIAL INH PRN (21:23)
[2024-06-20] MEDS ORDERED: bisacodyL 10 MG SUPP PR PRN (21:23)
[2024-06-20] MEDS: ROSUVASTATIN CALCIUM 20 MG TAB PO SCH (22:17)
[2024-06-20] MEDS: ACETAMINOPHEN 500 MG TAB PO SCH (22:17)
[2024-06-20] MEDS: SENNA 8.6 MG TAB PO SCH (22:17)
[2024-06-20] MEDS: CETIRIZINE HCL 10 MG TABLET PO SCH (22:17)
[2024-06-20] MEDS: GABAPENTIN 100 MG CAP PO SCH (22:18)
[2024-06-20] MEDS: carBAMazepine XR 200 MG TABCR PO SCH (22:18)
[2024-06-20] MEDS: LIDOCAINE 5% 1 PATCH TD SCH (22:18)
[2024-06-20] MEDS: linaCLOtide 72 MCG CAPSULE PO SCH (22:18)
[2024-06-20] MEDS: MIRTAZAPINE TAB 15 MG TAB PO SCH (22:18)
[2024-06-20] MEDS: FAMOTIDINE 20 MG TAB PO SCH (22:18)
[2024-06-20] MEDS: MICONAZOLE NITRATE POWDER 85 GM TOP SCH (22:19)
[2024-06-21] MEDS: MEROPENEM 500 MG in SYRINGE 0 ML IV SCH (02:14)
--- OUTSIDE RECORDS SUMMARY | 2024-06-21 03:37 | External Medical Summary | Summary of Care ---
Author Name Unknown Organization [facility] Address [address] [place] [address] Phone [phone] Care Team Providers Care Fittings Finisher Name Role Phone Nina Haile MD Primary Care Provide r Reason for Visit * Reason Onset Date Comments Assisted Visit 05/31/2024 Encounter Details Date Type Department Care Team (Late st Contact Info) Description 05/31/2024 11:00 AM EDT Assisted Visit [facility] at [address] [address] Senait Granados PA-C [address] [place] [address] Monilial rash* Allergies Active Allergy Reactions Criticality Noted Date Comments Cimetidine 05/29/1999 Hair thinning Cimetidine Unknown 12/19/2020 Erythromycin 09/08/2000 GI side effects Penicillins 05/29/1999 Phenytoin Sodium 05/29/1999 Rash, hives documented as of this encounter (statuses as of 06/01/2024) Medications carBAMazepine ER (CARBATROL) 100 MG CP12 [...] times a day. (0900/1300/170 0). 3 Active Gabapentin 100 MG Oral Capsule (Neurontin) [...] on the skin daily. Coccyx 4 Active Modafinil 200 MG Oral Tablet (Provigil) Take 1 Tablet by mouth in the morning. 30 Tablet 5 5 Active documented as of this encounter (statuses as of 06/01/2024) Active Problems Problem Noted Date Diagnosed Date At risk for malnutrition 04/22/2024 Right upper lobe pulmonary nodule 03/24/2024 DNR (do not resuscitate) 01/12/2024 DDD (degenerative [...] goal LDL below 130 08/01/2010 LOC PRIM [id number] 12/03/1999 Esophageal reflux 05/29/1999 Idiopathic urticaria History of peptic ulcer disease Overview (12/08/2016): ICD-10 update of inactive term Acquired hypothyroidism documented as of this encounter (statuses as of 06/01/2024) Resolved Problems Problem Noted Date Diagnosed Date [...] as of this encounter (statuses as of 06/01/2024) Immunizations Name Administration Dates Next Due Seasonal [...] 07/14/2019 2:46 PM EDT Roni mcdermott, Altagracia Valencia, RN * Are you blind or do [...] doing errands alone such as visiting a doctor’s office or shopping? (15 years old or [...] Care Team (Late st Contact Info) Description 06/01/2024 10:30 AM EDT Assisted Visit [address] [place] [address] Nina Haile MD [address] [place] [address] [place] [address] 08/04/2024 9:00 AM EDT Office Visit Hematology/Oncology [address] [place] [phone] Michele Han MD [address] [facility] [place] [address] 11/28/2024 11:00 AM EDT Office Visit Allergy/Immunology [facility] [place] [address] [facility] [place] [address] Lexus Bustillo PA-C [address] [facility] [place] [address] Health Maintenance Due Date Last Done Comments Depression Monitoring 1973 HIV Screening 1976 Albumin/Creatinine Ratio 09/13/1979 HPV/Co-Test 09/13/1991 Cologuard 2006 Colonoscopy 2006 Colorectal Cancer Screening 2006 Fecal Occult Blood Test 2006 Sigmoidoscopy 2006 Zoster Vaccines (1 of 2) 09/13/2011 Pneumococcal Vaccine: 50+ Years (2 of 2 - PCV) 01/20/2017 01/21/2016 DTap/Tdap Vaccines (2 - Td or Tdap) 04/25/2018 04/25/2008 Mammogram 01/03/2022 01/03/2021, 06/08, 05/28/2011, Additional history exists Cervical Cancer Screening 02/06/2024 Pap Smear 02/06/2024 02/05/2021, 030 09/2011, 03/11/2010, Additional history exists TSH 11/29/2024 11/30/2023, 05/07, 06/25/2022, Additional history exists GFR 04/01/2025 04/01/2024, 03/09, 02/15/2024, Additional history exists Diabetes Screening 04/01/2027 04/01/2024, 0 03/21/2024, 02/15/2024, Additional history exists Lipid Panel 04/04/2029 04/04/2024, 05/07, 05/30/2022, Additional history exists COVID-19 Vaccine Completed 01/02/2024, , 12/19/2021, Additional history exists Influenza Vaccine (FLU shot) Completed 05/2023, 01/02/2024, 12/24/2022, Additional history exists HPV (Gardasil) Vaccine Aged Out No lo nger eligible based on patient's age to complete this topic Hepatitis B Vaccine Aged Out No longe r eligible based on patient's age to complete this topic MENINGOCOCCAL (MENACTRA/MENVEO) Aged Out No longer eligible based on patient's age to complete this topic Meningitis B Vaccine (Bexsero/Trumemba) Aged Out No longer eligible based on patient's age to complete this topic documented as of this encounter Medical Devices Not on filedocumented as of this encounter Visit Diagnoses Diagnosis Monilial rash- Primary Candidiasis of skin and nails documented in this encounter Advance Directives * [...] and were consensually agreed upon. Care Teams Fittings Finisher Relationship Specialty Start Date End Date Nina Haile MD [address] [place], [place] [address] [address] PCP - General Family Medicine 10/25/19 documented as of this encounter
--- OUTSIDE RECORDS SUMMARY | 2024-06-21 03:37 | External Medical Summary ---
Author Name Unknown Address Unknown Organization [id number]:[facility] [place] - [address] [facility] [address] Laboratory Report Ordering Provider Test Date Status RUSSELL CHOWDARY 06/20/2024 06:40:00 Final Observation Date Value Abnormality Reference (Units ) Status SARS Coronavirus 2 06/20/2024 06:40:00 Negative N egative Final No SARS-CoV2 Coronavirus RNA detected by PCR (amplified probe).
This express test was developed and its performance characteristics determined by [facility]. It has not been cleared or approved by the U.S. Food and Drug Administration (FDA). FDA does not require this test to go thru premarket FDA review. This test is used for clinical purposes. It should not be regarded as investigational or for research. This laboratory is certified under the Clinical Laboratory Improvement Amendments (CLIA) as qualified to perform high complexity clinical laboratory testing.

This test is a nucleic acid amplification test (NAAT), a reverse transcriptase polymerase chain reaction (RT-PCR) test, or a Centers for Disease Control-acceptable equivalent. The test is performed in a high complexity Clinical Laboratory Improvement Amendments-(CLIA) certified laboratory. The test is acceptable for SARS-CoV-2 diagnosis, surveillance, and travel within the [facility] and to most countries. Please check with local testing authorities about requirements before travel.

The validation of bronchial specimens, tracheal aspirates, and sputum for this assay was developed and performance characteristics determined by [facility]. The validation of alternate specimen types has not been cleared or approved by the U.S. Food and Drug Administration (FDA). It has been determined that such clearance is not necessary. Influenza virus A RNA [Prese nce] in Specimen by KENNEDY with probe detection 06/20/2024 06:40:00 Positive Abnormal Negative Final Influenza A RNA detected by PCR (amplified probe). Test results reported to [facility]. Influenza virus B RNA [Prese nce] in Specimen by KENNEDY with probe detection 06/20/2024 06:40:00 Negative Negative Final No Influenza B RNA detected by PCR (amplified probe) Respiratory syncytial virus RNA [Identifier] in Specimen by KENNEDY with probe detection 06/20/2024 06:40:00 Negative Negative Final No Respiratory Syncytial Vir us RNA detected by PCR (amplified probe) Performing Location [facility] - [facility] [address] [facility] [address]
--- OUTSIDE RECORDS SUMMARY | 2024-06-21 03:37 | External Medical Summary | Summary of Care ---
Author Name Unknown Organization [facility] Address [address] [facility] [place] [address] Phone [phone] Care Team Providers Care Alkylation Operator Name Role Phone Nina Haile MD Primary Care Provide r Reason for Visit * Reason Comments Outpatient Testing Encounter Details Date Type Department Care Team (Late st Contact Info) Description 06/20/2024 8:20 AM EDT Laboratory Laboratory [address] [place] [phone] [address] Specimen Drop Off [address] [place] [address] Nasal congestion Allergies Active Allergy Reactions Criticality Noted Date Comments Cimetidine 05/29/1999 Hair thinning Cimetidine Unknown 12/19/2020 Erythromycin 09/08/2000 GI side effects Penicillins 05/29/1999 Phenytoin Sodium 05/29/1999 Rash, hives documented as of this encounter (statuses as of 06/20/2024) Medications carBAMazepine ER (CARBATROL) 100 MG CP12 [...] as of this encounter (statuses as of 06/20/2024) Active Problems Problem Noted Date Diagnosed Date [...] goal LDL below 130 08/01/2010 LOC PRIM [id number] 12/03/1999 Esophageal reflux 05/29/1999 Idiopathic urticaria History of peptic ulcer disease Overview (12/08/2016): ICD-10 update of inactive term Acquired hypothyroidism documented as of this encounter (statuses as of 06/20/2024) Resolved Problems Problem Noted Date Diagnosed Date [...] as of this encounter (statuses as of 06/20/2024) Immunizations Name Administration Dates Next Due Seasonal [...] Team (Late st Contact Info) Description 08/04/2024 9:00 AM EDT Office Visit Hematology/Oncology [facility] [place] [phone] Michele Han MD [address] [facility] [place] [address] 11/28/2024 11:00 AM EDT Office Visit Allergy/Immunology [facility] [place] [address] [place] [address] Lexus Bustillo PA-C [address] [facility] [place] [address] Pending Results Name Type Priority Associated Diagnoses Date /Time INFLUENZA A/B RSV SARS-COV2,PCR Lab Routine Nasal congestion 06/20/2024 6:40 AM EDT Health Maintenance Due Date Last [...] or Tdap) 04/25/2018 04/25/2008 Mammogram 01/03/2022 01/03/2021, /2 09/2014, 05/28/2011, Additional history exists Cervical Cancer [...] as of this encounter Visit Diagnoses Diagnosis Nasal congestion Other diseases of nasal cavity and sinuses documented in this encounter Advance Directives * [...] and were consensually agreed upon. Care Teams Alkylation Operator Relationship Specialty Start Date End Date Nina Haile MD [address] [place] [address] [place] [address] PCP - General Family Medicine 10/25/19 documented as of this encounter
--- OUTSIDE RECORDS SUMMARY | 2024-06-21 03:37 | External Medical Summary | Summary of Care ---
Author Name Unknown Organization [facility] Address [address] [place] [address] Phone [phone] Care Team Providers Care Research Associate Policy Name Role Phone Nina Haile MD Primary Care Provide r Reason for Visit * Reason Onset Date Comments Retirement Visit 06/01/2024 Regulatory Encounter Details Date Type Department Care Team (Latest Contact Info) Description 06/01/2024 10:30 AM EDT Retirement Visit [facility] at [address] [place] [address] Nina Haile MD [address] [place] [address] [place] [address] Left hemiparesis (HCC)*; Moderate episode of recurrent major depressive disorder (HCC); Grade III astrocytoma (HCC); Idiopathic urticaria; HTN, goal below 140/90; Dyslipidemia, goal LDL below 130; Subdural hygroma; Acquired hypothyroidism; Excessive sleepiness; Right upper lobe pulmonary nodule Allergies Active Allergy Reactions Criticality Noted Date [...] goal LDL below 130 08/01/2010 LOC PRIM [id number] 12/03/1999 Esophageal reflux 05/29/1999 Idiopathic urticaria History [...] Progress Notes * Nina Haile MD - 06/01/2024 2:49 PM EDT Regulatory Visit TRANSITION EVENT: Type: Regulatory visit Date: June 01 Code Status: No Code Name: Janay Kaplan Date of : 1960 This note pertains to care provided at [facility]. Please see facility medical record for original note. This note is not to be edited or addended in [employer] Editing or addending needs to occur in the facilities medical record. S: Janay Kaplan seen today as part of a regulatory visit. Has history of : Patient Active Problem List Diagnosis Esophageal reflux LOC PRIM [id number] Idiopathic urticaria History of peptic ulcer disease [...] disc disease), lumbosacral DNR (do not resuscitate) Right upper lobe pulmonary nodule At risk for malnutrition Past Medical History: Diagnosis Date Acquired hypothyroidism [...] LV functon. LVEF 60 to 65%.mild LVH. [facility] CARPAL TUNNEL SURGERY Right 1991 right CHEST 1 VIEW 12/20/2018 pulmonary vascular congesion. trace pleural fluid left base. [facility] CRAN LOBE,NOT TEMPORAL,ELEC Dr [place], [place] right frontal lobectomy/malignant brain tumor CT HEAD/BRAIN WO CONTRAST 12/20/2018 no acute intracranial findings. [facility] CTA NECK W CONTRAST 12/20/2018 no significant occlusion, stenosis or dissection within carotid or vertebral arteries. mild scattered plaque formation. [facility] DILATION AND CURETTAGE (D&C) EKG 12/20/2018 NSR. LVH. no acute changes. [facility] LAPAROSCOPY;WITH BIOPSY times 3 Laparoscopy,w Bx- DrGary Thursday LIGATE/CUT OVIDUCT(S) MAMMOGRAM SCREENING BILATERAL 04/03/2010 cat. 1, [facility] MAMMOGRAM SCREENING BILATERAL Bilateral 07/04/14 almost entirely fat, category 1 normal MICROSURGERY ADD-ON Right 07/14/2019 MICROSURGICAL SURGERY REQUIRING MICROSCOPE LISTED SEPARATELY performed by Pankaj Mejia, [place] [facility] MRA HEAD W CONTRAST 12/20/2018 no signficant stenosis, occlusion or aneurysm wtih tatitlek of armas. modeate midline shift to left unchanged from prior exam. [facility] MRI BRAIN WITH CONTRAST 12/20/2018 stable post surgical changes s/p right frontal craniotomy and resecton. no acute pathology. [facility] QUIROZ SKULL FOR BIOPSY Right 07/14/2019 KENNY HOLE BIOPSY OF BRAIN performed by Pankaj Mejia MD at OR [facility] RADIATION THERAPY DOSE PLAN,COMPLEX - 30 txs/cranium REMOVAL OF TONSILS, UNDER AGE 13 STEREOTACTIC CRANIAL INTRADURAL NAVIGATION Right 07/14/2019 STEREOTACTIC CRANIAL INTRADURAL NAVIGATION performed by Pankaj Mejia MD at OR [facility] UPPER GI ENDOSCOPY/EXAM neg [...] Types: Cigarettes Quit date: 03/09/1991 Years since quittin.2 Smokeless tobacco: Never Tobacco comments: no passive [...] now having acute problem(s). Current problems include seen yesterday for rash under right breast and started on antifungal powder. Recently saw allergy for chronic idiopathic urticaria 05/26/24and her hydroxyzine was changed to PRN instead of routine as her hives and itching have been much better lately and she reported some sedation. Is not having pain issues. Is not having behavioral problems. Results for orders placed or performed in visit on 04/04/24 LIPID PANEL WITHOUT DIRECT LDL Result Value Ref Range Triglycerides 275 (H) <=174 mg/dL Cholesterol 193 <200 mg/dL HDL Cholesterol 30 (L) >49 mg/dL Non-HDL Cholesterol 163 (H) <=159 mg/dL LDL Cholesterol 108 <=129 mg/dL LDL Cholesterol *Note: Due to a large number of [...] orders placed or performed in visit on 03/21/24 CBC Result Value Ref Range WBC 4.87 4.00 - 10.80 K/uL RBC 4.05 3.85 - 5.15 M/uL HGB 12.9 12.0 - 15.3 g/dL HCT 40.8 36.0 - 45.2 % MCV 100.7 81.5 - 97.5 fL MCH 31.9 27.0 - 34.0 pg MCHC 31.6 32.0 - 36.0 g/dL RDW 13.9 11.5 - 15.5 % PLT 176 140 - 400 K/uL MPV 10.4 6.6 - 11.1 fL Basic Panel Results: Results for orders placed or performed in visit on 04/01/24 BASIC METABOLIC PANEL Result Value Ref Range BUN 15 6 - 20 mg/dL CREATININE 0.7 0.5 - 1.0 mg/dL EGFR >90 >=60 mL/min SODIUM 146 135 - 146 mmol/L POTASSIUM 4.2 3.5 - 5.1 mmol/L CHLORIDE 109 (H) 98 - 107 mmol/L CO2 26 22 - 32 mmol/L ANION GAP 11 7 - 15 mmol/L GLUCOSE 90 70 - 120 mg/dL CALCIUM 8.4 8.4 - 10.2 mg/dL ROS: CONSTITUTIONAL: No change in weight, No fevers, sweats, or chills, and +weakness and chronic fatigue EYE: No recent significant [...] No abdominal bloating or early satiety, and +dysphagia on modified diet FEMALE: No dysuria and No frequency EXTREMITIES: No pain, redness or swelling on the joints SKIN/INTEGUMENTARY: +as per HPI NEUROLOGIC: +h/o astrocytoma resection with chronic hygroma, cerebral atrophy, excessive sleepinessand seizure disorder PSYCHIATRIC: +depression O: I reviewed the most recent facilities’ vitals. General: alert, no distress, well nourished, and well developed Head: Normocephalic, +postsurgical changes of scalp Neuro: alert & oriented x 3 with slow speech, +left hemiparesis Eye Exam: PERRLA, extraocular [...] no edema, no clubbing, no cyanosis A: Left hemiparesis (HCC) (Primary)--stable. From remote astrocytoma resection. Moderate episode of recurrent major depressive disorder (HCC)--continue mirtazapine 15 mg daily. Grade III astrocytoma (HCC)--s/p resection. Follows with neurology and oncology. Idiopathic urticaria--improved. Her hydroxyzine was changed to PRN by allergy on 05/26/24. No rash noted today. Continue cetrizine 10 mg twice daily and famotidine 20 mg twice daily. Also has triamcinolone and hydroxyzine PRN. HTN, goal below 140/90--continue amlodipine 2.5 mg daily. Dyslipidemia, goal LDL below 130--continue rosuvastatin 40 mg daily. Subdural hygroma--follows with neurology. Acquired hypothyroidism--continue levothyroxine 50 mcg daily. Excessive sleepiness--continue modafinil 200 mg daily as per neurology recommendations. Right upper lobe pulmonary nodule--to have follow-up chest CT in 1 year (March 2025). P: Medications reviewed. Please refer to MAR in the facility's medical record for the most up-to-date medication list. Continue present medication(s): Reviewed [facility] record for: vital signs, weight, bowel, and bladder function, and ADLs. Labs reviewed Continue current treatment plan as ordered Continue to follow up as needed and as scheduled [facility] Home Treatment Given: n/a Electronically signed by: [...] 08/04/2024 9:00 AM EDT Office Visit Hematology/Oncology [facility] [place] [address] [facility] [place] [phone] Michele Han MD [address] [facility] [place] [address] 11/28/2024 11:00 AM EDT Office Visit Allergy/Immunology [facility] [place] [address] [facility] [place] [address] Lexus Bustillo PA-C [address] [facility] [place] [address] Health Maintenance Due Date Last Done Comments [...] 01/03/2022 01/03/2021, /09/2014, 05/28/2011, Additional history exists Cervical Cancer Screening [...] as of this encounter Visit Diagnoses Diagnosis Left hemiparesis (HCC)- Primary Hemiplegia, unspecified, affecting unspecified side Moderate episode of recurrent major depressive disorder (HCC) Grade III astrocytoma (HCC) Malignant neoplasm of brain, unspecified site Idiopathic urticaria HTN, goal below 140/90 Unspecified essential hypertension Dyslipidemia, goal LDL below 130 Other and unspecified hyperlipidemia Subdural hygroma Subdural hemorrhage Acquired hypothyroidism Unspecified hypothyroidism Excessive sleepiness Hypersomnia, unspecified Right upper lobe pulmonary nodule documented in this encounter Advance Directives * [...] were consensually agreed upon. Care Teams Research Associate Policy Relationship Specialty Start Date End Date Nina Haile MD [address] [place] [address] PCP - General Family Medicine 10/25/19 documented as of this encounter
--- OUTSIDE RECORDS SUMMARY | 2024-06-21 03:38 | External Medical Summary | Summary of Care ---
Author Name Unknown Organization [facility] Address [address] [place] [address] Phone [phone] Care Team Providers Care Coil Winding Machines Set Up Mechanic Name Role Phone Nina Haile MD Primary Care Provide r Reason for Visit * Reason Onset Date Comments Skilled Visit 03/29/2024 Encounter Details Date Type Department Care Team (Latest Contact Info) Description 03/25/2024 10:30 AM EST Long Term Visit [facility] [address] [place] [address] Senait Granadso PA-C [address] [place] [address] Metabolic encephalopathy*; Complicated UTI (urinary tract infection); Grade III astrocytoma (HCC); Hypernatremia Allergies Active Allergy Reactions Criticality Noted Date Comments Cimetidine 05/29/1999 Hair thinning Cimetidine Unknown 12/19/2020 Erythromycin 09/08/2000 GI side effects Penicillins 05/29/1999 Phenytoin Sodium 05/29/1999 Rash, hives documented as of this encounter (statuses as of 03/29/2024) Medications carBAMazepine ER (CARBATROL) 100 MG CP12 [...] as of this encounter (statuses as of 03/29/2024) Active Problems Problem Noted Date Diagnosed Date Right upper lobe pulmonary nodule 03/24/2024 DNR [...] goal LDL below 130 08/01/2010 LOC PRIM [id number] 12/03/1999 Esophageal reflux 05/29/1999 Idiopathic urticaria History of peptic ulcer disease Overview (12/08/2016): ICD-10 update of inactive term Acquired hypothyroidism documented as of this encounter (statuses as of 03/29/2024) Resolved Problems Problem Noted Date Diagnosed Date [...] as of this encounter (statuses as of 03/29/2024) Immunizations Name Administration Dates Next Due Seasonal [...] Care Team (Late st Contact Info) Description 03/30/2024 6:30 AM EST Long Term Visit [address] [address] Senait Granados PA-C [address] [place] [address] 05/26/2024 1:30 PM EDT Office Visit Allergy/Immunology [facility] [place] [address] [place] [address] [address] Jhon Resendiz MD [address] [place] [address] [address] 08/04/2024 9:00 AM EDT Office Visit Hematology/Oncology [facility] [place] [address] [place] [address] [phone] Michele Han MD [address] [facility] [place] [address] Health Maintenance Due Date Last Done Comments [...] 11/30/2023, 05/07, 06/25/2022, Additional history exists GFR 03/21/2025 03/21/2024, 12/0 11/2023, 01/15/2024, Additional history exists Diabetes Screening 03/21/2027 03/21/2024, 1 04/17/2023, 01/15/2024, Additional history exists Lipid Panel 05/19/2028 05/20/2023, 05/08, 03/22/2021, Additional history exists COVID-19 Vaccine Completed 01/02/2024, , 12/19/2021, Additional history exists Influenza Vaccine (FLU shot) Completed , 12/24/2022, 12/29/2021, Additional history exists HPV (Gardasil) Vaccine Aged [...] encounter Visit Diagnoses Diagnosis Metabolic encephalopathy- Primary Complicated UTI (urinary tract infection) Urinary tract infection, [...] and were consensually agreed upon. Care Teams Coil Winding Machines Set Up Mechanic Relationship Specialty Start Date End Date Nina Haile MD [address] [place] [address] PCP - General Family Medicine 10/25/19 documented as of this encounter
--- OUTSIDE RECORDS SUMMARY | 2024-06-21 03:38 | External Medical Summary ---
Author Name Unknown Address Unknown Organization [id number]:[facility] - [address] [facility] [address] Laboratory Report Ordering Provider Test Date Status RUSSELL CHOWDARY 04/04/2024 05:35:00 Final Observation Date Value Abnormality Reference (Units ) Status Triglyceride 04/04/2024 05:35:00 275 Above high normal <=174 (mg/dL) Final Triglyceride Reference Range s (mg/dL):
<150 Acceptable
150-174 Borderline high
175-499 High
>=500 Very high Cholesterol 04/04/2024 05:35:00 193 <200 (mg /dL) Final Total Cholesterol Reference Ranges (mg/dL):
<200 Desirable
200-239 Borderline high
>=240 High HDL 04/04/2024 05:35:00 30 Below low normal >49 (mg/dL) Final HDL Cholesterol Reference Ra nges (mg/dL):
>=60 High (Desirable)
<50 Low (Undesirable) For Females
<40 Low (Undesirable) For Males NON-HDL CHOLESTEROL 04/04/2024 05:35:00 163 Above high normal <=159 (mg/dL) Final Non-HDL Cholesterol Referenc e Range (mg/dL):
<100 Target level for high risk ASCVD patient
<130 Optimal for general population
130-159 Near optimal for general population
160-189 Borderline High
190-219 High
>=220 Very High LDL, (calculated) 04/04/2024 05:35:00 108 <= 129 (mg/dL) Final LDL Cholesterol Reference Ra nges (mg/dL):
<70 Target level for high risk ASCVD patient
<100 Optimal for general population
100-129 Near optimal for general population
130-159 Borderline high
160-189 High
>=190 Very high LDL CHOLESTEROL 04/04/2024 05:35:00 Final Uninterpretable, recommend d irect LDL cholesterol testing. Performing Location [facility] - [address] [facility] [address]
--- OUTSIDE RECORDS SUMMARY | 2024-06-21 03:38 | External Medical Summary | Summary of Care ---
Author Name Unknown Organization [facility] Address [address] [place] [address] Phone [phone] Care Team Providers Care Metal Mockup Maker Name Role Phone Nina Haile MD Primary Care Provide r Encounter Details Date Type Department Care Team (Late st Contact Info) Description 04/22/2024 Abstract [facility] at [facility] [address] [place] [address] Senait Granados PA-C [address] [place] [address] Allergies Active Allergy Reactions Criticality Noted Date Comments Cimetidine 05/29/1999 Hair thinning Cimetidine Unknown 12/19/2020 Erythromycin 09/08/2000 GI side effects Penicillins 05/29/1999 Phenytoin Sodium 05/29/1999 Rash, hives documented as of this encounter (statuses as of 04/22/2024) Medications carBAMazepine ER (CARBATROL) 100 MG CP12 [...] as of this encounter (statuses as of 04/22/2024) Active Problems Problem Noted Date Diagnosed Date [...] goal LDL below 130 08/01/2010 LOC PRIM [id number] 12/03/1999 Esophageal reflux 05/29/1999 Idiopathic urticaria History of peptic ulcer disease Overview (12/08/2016): ICD-10 update of inactive term Acquired hypothyroidism documented as of this encounter (statuses as of 04/22/2024) Resolved Problems Problem Noted Date Diagnosed Date [...] as of this encounter (statuses as of 04/22/2024) Immunizations Name Administration Dates Next Due Seasonal [...] Author No 07/14/2019 2:46 PM EDT Altagracia Mna RN documented in this encounter Plan of Treatment Upcoming Encounters Date Type Department Care Team (Late st Contact Info) Description 05/26/2024 1:30 PM EDT Office Visit Allergy/Immunology [facility] [address] [facility] [place] [address] Jhon Resendiz MD [address] [facility] [place] [address] 08/04/2024 9:00 AM EDT Office Visit Hematology/Oncology [facility] [address] [facility] [place] [address] Michele Han MD [address] [facility] [place] [address] Health Maintenance Due Date Last Done Comments [...] were consensually agreed upon. Care Teams Metal Mockup Maker Relationship Specialty Start Date End Date Nina Haile MD [address] [place] [address] [place] [address] PCP - General Family Medicine 10/25/19 documented as of this encounter
--- OUTSIDE RECORDS SUMMARY | 2024-06-21 03:38 | External Medical Summary | Summary of Care ---
Author Name Unknown Organization [facility] Address [address] [place] [address] Phone [phone] Care Team Providers Care Preflight Inspector Name Role Phone Nina Haile MD Primary Care Provide r Reason for Visit * Reason Onset Date Comments Skilled Visit 03/29/2024 Encounter Details Date Type Department Care Team (Latest Contact Info) Description 03/25/2024 10:30 AM EST Prison Visit [facility] [address] [place] [address] Senait Granados PA-C [address] [place] [address] Metabolic encephalopathy*; Complicated UTI (urinary tract infection); [...] goal LDL below 130 08/01/2010 LOC PRIM [id number] 12/03/1999 Esophageal reflux 05/29/1999 Idiopathic urticaria History [...] Contact Info) Description 03/30/2024 6:30 AM EST Prison Visit [address] [address] Senait Granados PA-C [address] [place] [address] 05/26/2024 1:30 PM EDT Office Visit Allergy/Immunology [facility] [place] [address] [place] [address] [address] Jhon Resendiz MD [address] [place] [address] [address] 08/04/2024 9:00 AM EDT Office Visit Hematology/Oncology [facility] [place] [address] [place] [address] [phone] Michele Han MD 200 [facility] [place] [address] Health Maintenance Due Date Last Done Comments [...] and were consensually agreed upon. Care Teams Preflight Inspector Relationship Specialty Start Date End Date Nina Haile MD [address] [place] [address] PCP - General Family Medicine 10/25/19 documented as of this encounter
--- OUTSIDE RECORDS SUMMARY | 2024-06-21 03:38 | External Medical Summary | Summary of Care ---
Author Name Unknown Organization [facility] Address [address] [facility] [address] Phone [phone] Care Team Providers Care Salesperson Pets And Pet Supplies Name Role Phone Nina Haile MD Primary Care Provide r Encounter Details Date Type Department Care Team (Late st Contact Info) Description 04/04/2024 Orders Only Lab Mobile Phlebotomy [facility] [address] [place] [address] Nina Haile MD [address] [place] [address] [place] [address] HLD (hyperlipidemia)* Allergies Active Allergy Reactions Criticality Noted Date Comments Cimetidine 05/29/1999 Hair thinning Cimetidine Unknown 12/19/2020 Erythromycin 09/08/2000 GI side effects Penicillins 05/29/1999 Phenytoin Sodium 05/29/1999 Rash, hives documented as of this encounter (statuses as of 04/04/2024) Medications carBAMazepine ER (CARBATROL) 100 MG CP12 [...] as of this encounter (statuses as of 04/04/2024) Active Problems Problem Noted Date Diagnosed Date [...] goal LDL below 130 08/01/2010 LOC PRIM [id number] 12/03/1999 Esophageal reflux 05/29/1999 Idiopathic urticaria History of peptic ulcer disease Overview (12/08/2016): ICD-10 update of inactive term Acquired hypothyroidism documented as of this encounter (statuses as of 04/04/2024) Resolved Problems Problem Noted Date Diagnosed Date [...] as of this encounter (statuses as of 04/04/2024) Immunizations Name Administration Dates Next Due Seasonal [...] Care Team (Late st Contact Info) Description 04/04/2024 5:00 AM EST Laboratory Lab Mobile Phlebotomy [facility] [address] [place] [address] [place] [address] Arrived 05/26/2024 1:30 PM EDT Office Visit Allergy/Immunology [facility] [place] [address] Jhon Resendiz MD 200 [facility] [place] [address] 08/04/2024 9:00 AM EDT Office Visit [facility] [place] [address] [phone] Michele Han MD 200 [facility] [place] [address] Scheduled Orders Name Type Priority Associated Diagnoses Orde r Schedule LIPID PANEL WITHOUT DIRECT LDL Lab Routine HLD (hyperlipidemia) Expected: 04/04/2024, Expires: 04/04/2025 Health Maintenance Due Date Last Done Comments Depression Monitoring 1973 HIV Screening 1976 Albumin/Creatinine Ratio 09/13/1979 HPV/Co-Test 09/13/1991 Cologuard 2006 Colonoscopy 2006 Colorectal Cancer Screening 2006 Fecal Occult Blood Test 2006 Sigmoidoscopy 2006 Zoster Vaccines (1 of 2) 09/13/2011 Pneumococcal Vaccine: 50+ Years (2 of 2 - PCV) 01/20/2017 01/21/2016 DTap/Tdap Vaccines (2 - Td or Tdap) 04/25/2018 04/25/2008 Mammogram 01/03/2022 01/03/2021, 2 09/2014, 05/28/2011, Additional history exists Cervical Cancer Screening 02/06/2024 Pap Smear 02/06/2024 02/05/2021, 03/0 09/2011, 03/11/2010, Additional history exists TSH 11/29/2024 11/30/2023, 05/07, 06/25/2022, Additional history exists GFR 04/01/2025 04/01/2024, 03/09, 02/15/2024, Additional history exists Diabetes Screening 04/01/2027 04/01/2024, 0 03/21/2024, 02/15/2024, Additional history exists Lipid Panel 05/19/2028 05/20/2023, [...] as of this encounter Visit Diagnoses Diagnosis HLD (hyperlipidemia)- Primary Other and unspecified hyperlipidemia documented in this [...] and were consensually agreed upon. Care Teams Salesperson Pets And Pet Supplies Relationship Specialty Start Date End Date Nina Haile MD [address] [place], [place] [address] [address] PCP - General Family Medicine 10/25/19 documented as of this encounter
--- OUTSIDE RECORDS SUMMARY | 2024-06-21 03:38 | External Medical Summary | Summary of Care ---
Author Name Unknown Organization [facility] Address [address] [place] [address] Phone [phone] Care Team Providers Care Signals Collector/Analyst Name Role Phone Nina Haile MD Primary Care Provide r Reason for Visit * Reason Onset Date Comments Skilled Visit 04/11/2024 Encounter Details Date Type Department Care Team (Latest Contact Info) Description 04/11/2024 10:30 AM EST Alf Visit [facility] [address] [place] [address] Senait Granados PA-C [address] [place] [address] Grade III astrocytoma (HCC)*; Left hemiparesis (HCC); History of UTI Allergies Active Allergy Reactions Criticality Noted Date Comments Cimetidine 05/29/1999 Hair thinning Cimetidine Unknown 12/19/2020 Erythromycin 09/08/2000 GI side effects Penicillins 05/29/1999 Phenytoin Sodium 05/29/1999 Rash, hives documented as of this encounter (statuses as of 04/12/2024) Medications carBAMazepine ER (CARBATROL) 100 MG CP12 [...] as of this encounter (statuses as of 04/12/2024) Active Problems Problem Noted Date Diagnosed Date [...] goal LDL below 130 08/01/2010 LOC PRIM [id number] 12/03/1999 Esophageal reflux 05/29/1999 Idiopathic urticaria History of peptic ulcer disease Overview (12/08/2016): ICD-10 update of inactive term Acquired hypothyroidism documented as of this encounter (statuses as of 04/12/2024) Resolved Problems Problem Noted Date Diagnosed Date [...] as of this encounter (statuses as of 04/12/2024) Immunizations Name Administration Dates Next Due Seasonal [...] Progress Notes * Senait Granados PA-C - 04/11/2024 12:14 PM EST Name: Janay Kaplan Date of :1960 TRANSITION EVENT: Type: Skilled visit Date: April 11 Code Status: No Code This note pertains to care provided at [facility]. Please see facility medical record for original note. This note is not to be edited or addended in [facility]. Editing or addending needs to occur in the facilities medical record. Subjective: Janay Kaplan is a 63 year old female. Patient being seen for skilled visit Chief Complaint Patient presents with Skilled Visit HPI: pt readmitted back to SNF for LTC following hospital admission for acute respiratory failure and metabolic encephalopathy due to UTI. UTI completed treatment with antibiotic. Afebrile. Eating and drinking and mentation back to baseline.vital signs stable. Pt was having nausea and vomiting several days ago but pt states this has completely resolved. BMs and voiding ok. CBC Results: Results for orders placed or [...] K/uL MPV 10.4 6.6 - 11.1 fL Hemoglobin Results: Lab Results Component Value Date/Time HGB 12.9 03/21/2024 05:38 AM HGB 15.3 01/05/2024 09:00 AM HGB 12.7 12/04/2023 05:22 AM HGB 13.7 10/14/2019 05:10 AM HGB [...] mg/dL CALCIUM 8.4 8.4 - 10.2 mg/dL Creatinine Results: Lab Results Component Value Date/Time CREATININE - [facility] 0.7 04/01/2024 05:26 AM CREATININE - [facility] 0.7 03/21/2024 05:38 AM CREATININE - [facility] 0.6 02/15/2024 05:34 AM CREATININE - [facility] 0.6 03/21/2020 05:50 AM CREATININE - [facility] 0.6 10/14/2019 05:10 AM CREATININE - [facility] 0.7 07/15/2019 11:36 AM CREATININE - [facility] 0.7 05/25/1996 03:50 PM Potassium Results: Lab Results Component Value Date/Time POTASSIUM - [facility] 4.2 04/01/2024 05:26 AM POTASSIUM - [facility] 4.2 03/21/2024 05:38 AM POTASSIUM - [facility] 4.2 02/15/2024 05:34 AM POTASSIUM - [facility] SPECIMEN HEMOLYZED TEST NOT PERFORMED 03/21/2020 05:50 AM POTASSIUM - [facility] 3.7 10/14/2019 05:10 AM POTASSIUM - [facility] 4.0 07/15/2019 11:36 AM POTASSIUM - [facility] 4.5 05/25/1996 03:50 PM Sodium Results: Lab Results Component Value Date/Time SODIUM - [facility] 146 04/01/2024 05:26 AM SODIUM - [facility] 147 (H) 03/21/2024 05:38 AM SODIUM - [facility] 147 (H) 02/15/2024 05:34 AM SODIUM - [facility] 134 (L) 03/21/2020 05:50 AM SODIUM - [facility] 144 10/14/2019 05:10 AM SODIUM - [facility] 137 07/15/2019 11:36 AM SODIUM - [facility] 142 05/25/1996 03:50 PM Chloride Results: Lab Results Component Value Date/Time CHLORIDE - [facility] 109 (H) 04/01/2024 05:26 AM CHLORIDE - [facility] 113 (H) 03/21/2024 05:38 AM CHLORIDE - [facility] 113 (H) 02/15/2024 05:34 AM CHLORIDE - [facility] 99 03/21/2020 05:50 AM CHLORIDE - [facility] 104 10/14/2019 05:10 AM CHLORIDE - [facility] 98 07/15/2019 11:36 AM CHLORIDE - [facility] 106 05/25/1996 03:50 PM Patient Active Problem List Diagnosis Esophageal reflux LOC PRIM [id number] Idiopathic urticaria History of peptic ulcer disease [...] not resuscitate) Right upper lobe pulmonary nodule Past Medical History: Diagnosis Date Acquired hypothyroidism [...] LV functon. LVEF 60 to 65%.mild LVH. [facility] CARPAL TUNNEL SURGERY Right 1991 right CHEST 1 VIEW 12/20/2018 pulmonary vascular congesion. trace pleural fluid left base. [facility] CRAN LOBE,NOT TEMPORAL,ELEC Dr [place], [place] right frontal lobectomy/malignant brain tumor CT HEAD/BRAIN WO CONTRAST 12/20/2018 no acute intracranial findings. [facility] CTA NECK W CONTRAST 12/20/2018 no significant occlusion, stenosis or dissection within carotid or vertebral arteries. mild scattered plaque formation. [facility] DILATION AND CURETTAGE (D&C) EKG 12/20/2018 NSR. LVH. no acute changes. [facility] LAPAROSCOPY;WITH BIOPSY times 3 Laparoscopy,w Lisa- Thursday LIGATE/CUT OVIDUCT(S) MAMMOGRAM SCREENING BILATERAL 04/03/2010 cat. 1, repeat in 12mths MAMMOGRAM SCREENING BILATERAL Bilateral 07/04/14 almost entirely fat, category 1 normal MICROSURGERY ADD-ON Right 07/14/2019 MICROSURGICAL SURGERY REQUIRING MICROSCOPE LISTED SEPARATELY [facility] [place] [facility] [place] CONTRAST 12/20/2018 no signficant stenosis, occlusion or aneurysm wtih [place]. modeate midline shift to left unchanged from prior exam. [facility] MRI BRAIN WITH CONTRAST 12/20/2018 stable post surgical changes s/p right frontal craniotomy and resecton. no acute pathology. [facility] QUIROZ SKULL FOR BIOPSY Right 07/14/2019 KENNY HOLE BIOPSY OF BRAIN performed by Pankaj Mejia MD at [place] [facility] RADIATION THERAPY DOSE PLAN,COMPLEX - 30 txs/cranium REMOVAL OF TONSILS, UNDER AGE 13 STEREOTACTIC CRANIAL INTRADURAL NAVIGATION Right 07/14/2019 STEREOTACTIC CRANIAL INTRADURAL NAVIGATION performed by Pankaj Mejia MD at [place] [facility] UPPER GI ENDOSCOPY/EXAM neg test/naveen test neg. [...] Types: Cigarettes Quit date: 03/09/1991 Years since quittin.1 Smokeless tobacco: Never Tobacco comments: no passive [...] list as this cannot be edited in [facility]. Review of Systems: Constitutional ROS: No change [...] ROS: No rash and No itching Neurologic ROS:left hemiparesis s/p CVA, hx of astrocytoma Psychiatric ROS: No depression, No anxiety and No psychosis Sleep: No sleep disorders OBJECTIVE: PHYSICALEXAM: LMP 03/13/2011 I reviewed the most recent facilities’ vitals. General: alert, no distress, well nourished [...] cyanosis Neuro Exam: alert with affected speech, unchanged hemiparesis Skin: skin color, texture, turgor are normal, no rashes or significant lesions ASSESSMENT: Grade III astrocytoma (HCC) (Primary) Stable from [place] standpoint Continue followup with oncology as directed Left hemiparesis (HCC) Stable Continue ASA as directed History of UTI Completed treatment Continue to monitor PLAN: Reviewed CBC, BMP, Lytes and Continue present medication(s):as ordered. Correction Home Treatment Given: Other as above Electronically signed by: Senait Granados PA-C Over 35 minutes were spent in this visit more than half the time was spent counselling or coordinating care. Cosigned by Nina Haile MD at 04/11/2024 12:41 PM EST documented in this encounter Plan of Treatment Upcoming Encounters Date Type Department Care Team (Late st Contact Info) Description 05/26/2024 1:30 PM EDT Office Visit Allergy/Immunology [facility] [place] [address] [facility] [place] [address] Jhon Resendiz MD [address] [place] [address] 08/04/2024 9:00 AM EDT Office Visit Hematology/Oncology [facility] [place] [address] [facility] [place] [phone] Michele Han MD [address] [place] [address] Health Maintenance Due Date Last Done Comments [...] hemiparesis (HCC) Hemiplegia, unspecified, affecting unspecified side History of UTI Personal history of urinary (tract) infection documented in this encounter Advance Directives * [...] and were consensually agreed upon. Care Teams Signals Collector/Analyst Relationship Specialty Start Date End Date Nina Haile MD [address] [place] [id number] PCP - General Family Medicine 10/25/19 documented as of this encounter
--- OUTSIDE RECORDS SUMMARY | 2024-06-21 03:38 | External Medical Summary | Summary of Care ---
Author Name Unknown Organization [facility] Address [address] [place] [address] Phone [phone] Care Team Providers Care Cafeteria Or Lunchroom Checker Name Role Phone Nina Haile MD Primary Care Provide r Reason for Visit * Reason Comments Allergy Return Encounter Details Date Type Department Care Team (Late st Contact Info) Description 05/26/2024 1:30 PM EDT Office Visit [facility] [address] [place] [address] Jhon Resendiz MD [address] [place] [address] Chronic urticaria*; Pruritus Allergies Active Allergy Reactions Criticality Noted Date Comments Cimetidine 05/29/1999 Hair thinning Cimetidine Unknown 12/19/2020 Erythromycin 09/08/2000 GI side effects Penicillins 05/29/1999 Phenytoin Sodium 05/29/1999 Rash, hives documented as of this encounter (statuses as of 05/26/2024) Medications carBAMazepine ER (CARBATROL) 100 MG CP12 [...] as of this encounter (statuses as of 05/26/2024) Active Problems Problem Noted Date Diagnosed Date [...] goal LDL below 130 08/01/2010 LOC PRIM [id number] 12/03/1999 Esophageal reflux 05/29/1999 Idiopathic urticaria History of peptic ulcer disease Overview (12/08/2016): ICD-10 update of inactive term Acquired hypothyroidism documented as of this encounter (statuses as of 05/26/2024) Resolved Problems Problem Noted Date Diagnosed Date [...] HTN protocol #16. Myalgia and myositis 09/08/2000 03/27/2 019 OBESITY, UNSPECIFIED 05/29/1999 010 Overview (06/04/2009): [...] as of this encounter (statuses as of 05/26/2024) Immunizations Name Administration Dates Next Due Seasonal [...] Sign Reading Time Taken Comments Blood Pressure 104/64 05/26/2024 1:11 PM EDT Pulse 77 05/26/2024 1:11 PM EDT Temperature - - Respiratory Rate 18 05/26/2024 1:11 PM EDT Oxygen Saturation 96% 05/26/2024 1:11 PM EDT Inhaled Oxygen Concentration - - Weight 61.2 kg (135 lb) 05/26/2024 1:11 PM EDT Height 167.6 cm (5' 6") 05/26/2024 1:11 PM EDT Body Mass Index 21.79 05/26/2024 1:11 PM EDT documented in this encounter Functional Status * Are you [...] documented in this encounter Progress Notes * Jhon Resendiz MD - 05/26/2024 1:21 PM EDT REASON FOR VISIT: Chief Complaint Patient presents with Allergy Return HPI: Janay is a 63-year-old female who presents to our office for follow-up of chronic urticaria with associated pruritus. She was last seen in our office 6 months ago. At that time, she has has been increased pruritus and urticaria in the setting of increased stress and anxiety with her sister being recently diagnosed with Alzheimer's. Prior to that visit, she has been on Pepcid 20 mg twice daily in addition to hydroxyzine 20 mg 4 times per day. We increased her Zyrtec from 10 mg once daily to twice daily. Over the past 4-5 months, she has been doing extremely well. She states that she may have had slightly more itch during the winter season. She does report being tired but she is unsure if this is secondary to the medications. Aggravating factors of her urticaria includes heat, sweating, pressure, friction and possibly stress and anxiety. She does report increased stress and anxiety with her sister being recently diagnosedwith Alzheimer's. She reports no recent illnesses. She denies any significant use of NSAIDs. The patient does have a history of hypothyroidism and her last TSH in May of 2023 was within normal limits. Past Medical History: Diagnosis Date Acquired hypothyroidism [...] LV functon. LVEF 60 to 65%.mild LVH. [facility] CARPAL TUNNEL SURGERY Right 1991 right CHEST 1 VIEW 12/20/2018 pulmonary vascular congesion. trace pleural fluid left base. [facility] CRAN LOBE,NOT TEMPORAL,ELEC Dr [place], [place] right frontal lobectomy/malignant brain tumor CT HEAD/BRAIN WO CONTRAST 12/20/2018 no acute intracranial findings. [facility] CTA NECK W CONTRAST 12/20/2018 no significant occlusion, stenosis or dissection within carotid or vertebral arteries. mild scattered plaque formation. [facility] DILATION AND CURETTAGE (D&C) EKG 12/20/2018 NSR. LVH. no acute changes. [facility] LAPAROSCOPY;WITH BIOPSY times 3 Laparoscopy,w Lisa- Thursday LIGATE/CUT OVIDUCT(S) MAMMOGRAM SCREENING BILATERAL 04/03/2010 cat. 1, repeat in 12mths MAMMOGRAM SCREENING BILATERAL Bilateral 07/04/14 almost entirely fat, category 1 normal MICROSURGERY ADD-ON Right 07/14/2019 MICROSURGICAL SURGERY REQUIRING MICROSCOPE LISTED SEPARATELY performed by Pankaj Mejia, [facility] [place] [facility] MRA HEAD W CONTRAST 12/20/2018 no signficant stenosis, occlusion or aneurysm wtih [place]. modeate midline shift to left unchanged from prior exam. [facility] MRI BRAIN WITH CONTRAST 12/20/2018 stable post surgical changes s/p right frontal craniotomy and resecton. no acute pathology. [facility] QUIROZ SKULL FOR BIOPSY Right 07/14/2019 KENNY HOLE BIOPSY OF BRAIN performed by Pankaj Mejia MD at [place] [facility] RADIATION THERAPY DOSE PLAN,COMPLEX - 30 txs/cranium REMOVAL OF TONSILS, UNDER AGE 12 STEREOTACTIC CRANIAL INTRADURAL NAVIGATION Right 07/14/2019 STEREOTACTIC CRANIAL INTRADURAL NAVIGATION performed by Pankaj Mejia MD at [place] [facility] UPPER GI ENDOSCOPY/EXAM 10/00 neg test/naveen test neg. Current Outpatient Medications Medication Sig Dispense Refill linaclotide (LINZESS) 72 MCG CAPS 1 Capsule [...] in the morning. (0900).. 30 Tab 0 Magnesium Oxide 400 (240 Mg) MG Oral [...] by mouth 3 times a day. (0900/1300/1700). Gabapentin 100 MG Oral Capsule (Neurontin) Take [...] Patch topically on the skin daily. Coccyx Modafinil 200 MG Oral Tablet (Provigil) Take 1 Tablet by mouth in the morning. 30 Tablet 5 carBAMazepine ER (CARBATROL) 100 MG CP12 Take 2 Capsules by mouth in the morning and 2 Capsules before bedtime. (0900/2100).. 60 Cap 0 Boost Oral Liquid (Patient not taking: Reported on 05/26/2024) No current facility-administered medications for this visit. Allergies as of 05/26/2024 - Reviewed 05/26/2024 Allergen Reaction Noted Cimetidine 05/29/1999 Cimetidine Unknown [...] above, the [facility]. She reports no significant changes to her home environment over the course of the last year. She does have her own private room. BP 104/64 | Pulse 77 | Resp 18 | Ht 1.676 m (5' 6") | Wt 61.2 kg (135 lb) | LMP 03/13/2011 | SpO2 96% | BMI 21.79 kg/m² | BSA 1.69 m² PHYSICAL EXAM: No Acute Distress: Conjunctiva: Normal TM's: Clear Sinus Tenderness: None noted Nose: Inferior turbinate edema, no polyps, no mucopus Oropharynx: Mild erythema and cobblestoning, no lesions or exudates. Neck: No significant adenopathy Lungs: Clear to A&P, no wheezes Cor: RRR, no murmur Abdomen: Soft, non-tender, BS - WNL; no masses, organomegaly Skin: No lesions atopic dermatitis; no urticaria, angioedema ASSESSMENT AND PLAN: ICD-10-CM 1. Chronic urticaria [...] issues throughout the course of this year. From a pharmacotherapy standpoint, we will recommend that she continue on cetirizine 10 mg twice daily and Pepcid 20 mg twice daily. Given the slight sedation that she is experiencing, we will decrease her hydroxyzine to 20 mg 4 times daily as needed. They may try to discontinue the hydroxyzine butshould there be increased pruritus, they may restart it overall. Thank you very much for allowing myself to participate in the care of your patient. Please do not hesitate to contact our office should you have any questions or concerns. Jhon Resendiz MD Allergy/Immunology I spent a total of 30-39 minutes [...] the provider listed above.) PCP: NINA HAILE [address] [place] [address] documented in this encounter Nursing Notes * Amanda Blanton LPN - 05/26/2024 1:08 PM EDT The pt has been properly identified by confirmation of name and date of . Pt presents for allergy follow up. Pt states no new concerns or issues at this time that have to dowith allergies. documented in this encounter Plan of Treatment Upcoming Encounters Date Type Department Care Team (Late st Contact Info) Description 08/04/2024 9:00 AM EDT Office Visit Hematology/Oncology [facility] [address] [place] [address] Michele Han MD [address] [place] [address] 11/28/2024 11:00 AM EDT Office Visit Allergy/Immunology [facility] [address] [facility] [place] [address] Lexus Bustillo PA-C [address] [place] [address] Health Maintenance Due Date Last Done Comments [...] and were consensually agreed upon. Care Teams Cafeteria Or Lunchroom Checker Relationship Specialty Start Date End Date Nina Haile MD [address] [place] [address] [place] [address] PCP - General Family Medicine 10/25/19 documented as of this encounter
--- OUTSIDE RECORDS SUMMARY | 2024-06-21 03:38 | External Medical Summary | Summary of Care ---
Author Name Unknown Organization [facility] Address [address] [place] [address] Phone [phone] Care Team Providers Care Data Keyer Name Role Phone Nina Haile MD Primary Care Provide r Reason for Visit * Reason Onset Date Comments Snf Visit 03/30/2024 Regulatory Encounter Details Date Type Department Care Team (Latest Contact Info) Description 03/30/2024 6:30 AM EST Snf Visit [facility] [address] [place] [address] Senait Granados PA-C [address] [place] [address] Grade III astrocytoma (HCC)*; Subdural hygroma; Left hemiparesis (HCC); Acquired hypothyroidism; HTN, goal below 140/90; Right upper lobe pulmonary nodule; Hypernatremia; Dyslipidemia, goal LDL below 130 Allergies Active Allergy Reactions Criticality Noted Date Comments Cimetidine 05/29/1999 Hair thinning Cimetidine Unknown 12/19/2020 Erythromycin 09/08/2000 GI side effects Penicillins 05/29/1999 Phenytoin Sodium 05/29/1999 Rash, hives documented as of this encounter (statuses as of 03/30/2024) Medications carBAMazepine ER (CARBATROL) 100 MG CP12 [...] as of this encounter (statuses as of 03/30/2024) Active Problems Problem Noted Date Diagnosed Date [...] goal LDL below 130 08/01/2010 LOC PRIM [id number] 12/03/1999 Esophageal reflux 05/29/1999 Idiopathic urticaria History of peptic ulcer disease Overview (12/08/2016): ICD-10 update of inactive term Acquired hypothyroidism documented as of this encounter (statuses as of 03/30/2024) Resolved Problems Problem Noted Date Diagnosed Date [...] as of this encounter (statuses as of 03/30/2024) Immunizations Name Administration Dates Next Due Seasonal [...] 05/26/2024 1:30 PM EDT Office Visit Allergy/Immunology [facility] [address] [place] [address] Jhon Resendiz MD [address] [place] [address] 08/04/2024 9:00 AM EDT Office Visit Hematology/Oncology [facility] [place] [address] [place] [phone] Michele Han MD [address] [place] [address] Health Maintenance Due Date Last Done Comments [...] 1 05/2023, 06/25/2022, Additional history exists GFR 03/21/2025 03/21/2024, [...] brain, unspecified site Subdural hygroma Subdural hemorrhage Left hemiparesis (HCC) Hemiplegia, unspecified, affecting unspecified side Acquired hypothyroidism Unspecified hypothyroidism HTN, goal below 140/90 Unspecified essential hypertension Right upper lobe pulmonary nodule Hypernatremia Hyperosmolality and/or hypernatremia Dyslipidemia, goal LDL below 130 Other and [...] and were consensually agreed upon. Care Teams Data Keyer Relationship Specialty Start Date End Date Nina Haile MD [address] [place], [place] [address] [address] PCP - General Family Medicine 10/25/19 documented as of this encounter
--- OUTSIDE RECORDS SUMMARY | 2024-06-21 03:38 | External Medical Summary | Summary of Care ---
Author Name Unknown Organization [facility] [address] [facility] [address] Phone [phone] Care Team Providers Care Scientologist Name Role Phone Nina Haile MD Primary Care Provide r Encounter Details Date Type Department Care Team (Late st Contact Info) Description 03/29/2024 Orders Only Lab Mobile Phlebotomy [facility] [address] [place] [address] Nina Haile MD [address] [place] [address] [place] [address] HTN, goal below 140/90* [...] goal LDL below 130 08/01/2010 LOC PRIM [id number] 12/03/1999 Esophageal reflux 05/29/1999 Idiopathic urticaria History [...] Team (Late st Contact Info) Description 03/30/2024 5:10 AM EST Laboratory Lab Mobile Phlebotomy [facility] [address] [facility] [place] [address] [facility] 100 [facility] [place] [address] 03/30/2024 6:30 AM EST Senior Care Visit [facility] at [address] [address] Senait Granados PA-C [address] [place] [address] 05/26/2024 1:30 PM EDT Office Visit Allergy/Immunology [facility] [place] [address] [place] [address] [address] Jhon Resendiz MD 200 [facility] [place] [address] 08/04/2024 9:00 AM EDT Office Visit Hematology/Oncology [facility] [place] [address] [place] [phone] Michele Han MD 200 [place] [address] Scheduled Orders Name Type Priority Associated Diagnoses Orde r Schedule BASIC METABOLIC PANEL Lab Routine HTN, goal below 140/90 Expected: 03/30/2024, Expires: 03/29/2025 Health Maintenance Due Date Last Done Comments [...] and were consensually agreed upon. Care Teams Scientologist Relationship Specialty Start Date End Date Nina Haile MD [address] [place] [address] PCP - General Family Medicine 10/25/19 documented as of this encounter
--- OUTSIDE RECORDS SUMMARY | 2024-06-21 03:38 | External Medical Summary ---
Author Name Unknown Address Unknown Organization [facility] [address] [place] [address] Laboratory Report Ordering Provider Test Date Status RUSSELL CHOWDARY 04/01/2024 05:26:00 Final Observation Date Value Abnormality Reference (Units ) Status BUN 04/01/2024 05:26:00 15 6-20 (mg/dL) Final Creatinine 04/01/2024 05:26:00 0.7 0.5-1.0 (mg/dL) Final Glomerular filtration rate/1.73 sq M.predicted [Volume Rate/Area] in Serum, Plasma or Blood by Creatinine-based formula (CKD-EPI) 04/01/2024 05:26:00 >90 >=60 (mL/min) Final eGFR is calculated based on the CKD-EPI 2020 equation. Sodium 04/01/2024 05:26:00 146 135-146 (m mol/L) Final Potassium 04/01/2024 05:26:00 4.2 3.5-5.1 (m mol/L) Final Cl 04/01/2024 05:26:00 109 Above high normal 98 -107 (mmol/L) Final CO2 04/01/2024 05:26:00 26 22-32 (mmo l/L) Final Anion gap 04/01/2024 05:26:00 11 7-15 (mmol /L) Final Glucose 04/01/2024 05:26:00 90 70-120 (mg /dL) Final Calcium 04/01/2024 05:26:00 8.4 8.4-10.2 ( mg/dL) Final [facility] [place] [address]
--- OUTSIDE RECORDS SUMMARY | 2024-06-21 03:38 | External Medical Summary | Summary of Care ---
Author Name Unknown Organization [facility] Address [address] [facility] [address] Phone [phone] Care Team Providers Care Cardiology Consultants Name Role Phone Nina Haile MD Primary Care Provide r Encounter Details Date Type Department Care Team (Late st Contact Info) Description 04/01/2024 Orders Only Lab Mobile Phlebotomy [facility] [address] [place] [address] Nina Haile MD [address] [place] [address] [place] [address] Hyponatremia* Allergies Active Allergy Reactions Criticality Noted Date Comments Cimetidine 05/29/1999 Hair thinning Cimetidine Unknown 12/19/2020 Erythromycin 09/08/2000 GI side effects Penicillins 05/29/1999 Phenytoin Sodium 05/29/1999 Rash, hives documented as of this encounter (statuses as of 04/01/2024) Medications carBAMazepine ER (CARBATROL) 100 MG CP12 [...] as of this encounter (statuses as of 04/01/2024) Active Problems Problem Noted Date Diagnosed Date [...] goal LDL below 130 08/01/2010 LOC PRIM [id number] 12/03/1999 Esophageal reflux 05/29/1999 Idiopathic urticaria History of peptic ulcer disease Overview (12/08/2016): ICD-10 update of inactive term Acquired hypothyroidism documented as of this encounter (statuses as of 04/01/2024) Resolved Problems Problem Noted Date Diagnosed Date [...] as of this encounter (statuses as of 04/01/2024) Immunizations Name Administration Dates Next Due Seasonal [...] Care Team (Late st Contact Info) Description 04/01/2024 5:10 AM EST Laboratory Lab Mobile Phlebotomy [facility] [address] [place] [address] [place] [address] Arrived 05/26/2024 1:30 PM EDT Office Visit Allergy[facility]Immunology [facility] [place] [address] [place] [address] Jhon Resendiz MD 200 [facility] [place] [address] 08/04/2024 9:00 AM EDT Office Visit Hematology/Oncology [facility] [place] [address] [place] [phone] Michele Han MD [facility] [place] [address] Scheduled Orders Name Type Priority Associated Diagnoses Orde r Schedule BASIC METABOLIC PANEL Lab Routine Hyponatremia Expected: 04/01/2024, Expires: 04/01/2025 Health Maintenance Due Date Last Done Comments [...] 03/11/2010, Additional history exists TSH 11/29/2024 11/30/2023, /1 05/2023, 06/25/2022, Additional history exists GFR 03/21/2025 [...] and were consensually agreed upon. Care Teams Cardiology Consultants Relationship Specialty Start Date End Date Nina Haile MD 100 [facility] [place] [address] PCP - General Family Medicine 10/25/19 documented as of this encounter
--- OUTSIDE RECORDS SUMMARY | 2024-06-21 03:38 | External Medical Summary | Summary of Care ---
Author Name Unknown Organization [facility] Address [address] [place] [address] Phone [phone] Care Team Providers Care Research Nutritionist Name Role Phone Nina Haile MD Primary Care Provide r Reason for Visit * Reason Onset Date Comments Skilled Visit 04/10/2024 Encounter Details Date Type Department Care Team (Latest Contact Info) Description 04/08/2024 12:30 PM EST [facility] Visit [facility] [address] [place] [address] Senait Granados PA-C 100 [place] [address] History of urinary tract infection*; Nausea and vomiting, unspecified vomiting type; Grade III astrocytoma (HCC); Left hemiparesis (HCC) Allergies Active Allergy Reactions Criticality Noted Date Comments Cimetidine 05/29/1999 Hair thinning Cimetidine Unknown 12/19/2020 Erythromycin 09/08/2000 GI side effects Penicillins 05/29/1999 Phenytoin Sodium 05/29/1999 Rash, hives documented as of this encounter (statuses as of 04/10/2024) Medications carBAMazepine ER (CARBATROL) 100 MG CP12 Take 2 Capsules by mouth in the morning and 2 Capsules before bedtime. (09/2100).. 60 Cap 9 Active linaclotide (LINZESS) 72 [...] as of this encounter (statuses as of 04/10/2024) Active Problems Problem Noted Date Diagnosed Date [...] goal LDL below 130 08/01/2010 LOC PRIM [id number] 12/03/1999 Esophageal reflux 05/29/1999 Idiopathic urticaria History of peptic ulcer disease Overview (12/08/2016): ICD-10 update of inactive term Acquired hypothyroidism documented as of this encounter (statuses as of 04/10/2024) Resolved Problems Problem Noted Date Diagnosed Date [...] as of this encounter (statuses as of 04/10/2024) Immunizations Name Administration Dates Next Due Seasonal [...] 05/26/2024 1:30 PM EDT Office Visit Allergy/Immunology [facility] [place] [address] [place] [address] [address] Jhon Resendiz MD 200 [facility] [place] [address] 08/04/2024 9:00 AM EDT Office Visit Hematology/Oncology [facility] [place] [address] [place] [address] [address] Michele Han MD [address] [place] [address] Health Maintenance Due Date Last Done Comments [...] as of this encounter Visit Diagnoses Diagnosis History of urinary tract infection- Primary Personal history of urinary (tract) infection Nausea and vomiting, unspecified vomiting type Grade III astrocytoma (HCC) Malignant neoplasm of [...] were consensually agreed upon. Care Teams Research Nutritionist Relationship Specialty Start Date End Date Nina Haile MD 100 [facility] [place] [address] PCP - General Family Medicine 10/25/19 documented as of this encounter
--- OUTSIDE RECORDS SUMMARY | 2024-06-21 03:38 | External Medical Summary | Summary of Care ---
Author Name Unknown Organization [facility] Address [address] [place] [address] Phone [phone] Care Team Providers Care Unisaw Operator Name Role Phone Nina Haile MD Primary Care Provide r Reason for Visit * Reason Onset Date Comments Skilled Visit 04/11/2024 Encounter Details Date Type Department Care Team (Latest Contact Info) Description 04/11/2024 10:30 AM EST [facility] Visit [facility] at [address] [address] Senait Granados PA-C 100 [place] [address] Grade III astrocytoma (HCC)*; Left hemiparesis (HCC); History of UTI; At risk for malnutrition Allergies Active Allergy Reactions Criticality Noted Date [...] goal LDL below 130 08/01/2010 LOC PRIM [id number] 12/03/1999 Esophageal reflux 05/29/1999 Idiopathic urticaria History [...] This note pertains to care provided at [facility]. Please see facility medical record for original note. This note is not to be edited or addended in [facility]. Editing or addending needs to occur in the facilities medical record. Subjective: Janay Kaplan is a 63 year old female. Patient being seen for skilled visit Chief Complaint Patient presents with Skilled Visit HPI: pt readmitted back to SNF for LTC following hospital admission for acute respiratory failure and metabolic encephalopathy due to UTI. UTI completed treatment with antibiotic. Afebrile. Eating and drinking fair. Pt is at risk for malnutrition. She needs to be encouraged to eat frequently. Dietary has been following patient closely. .vital signs stable. Pt was having nausea and [...] Problem List Diagnosis Esophageal reflux LOC PRIM [id number] Idiopathic urticaria History of peptic ulcer disease [...] LV functon. LVEF 60 to 65%.mild LVH. [facility] CARPAL TUNNEL SURGERY Right 1991 right CHEST 1 VIEW 12/20/2018 pulmonary vascular congesion. trace pleural fluid left base. [facility] CRAN LOBE,NOT TEMPORAL,ELEC Dr [place], [place] right frontal lobectomy/malignant brain tumor CT HEAD/BRAIN WO CONTRAST 12/20/2018 no acute intracranial findings. [facility] CTA NECK W CONTRAST 12/20/2018 no significant occlusion, stenosis or dissection within carotid or vertebral arteries. mild scattered plaque formation. [facility] DILATION AND CURETTAGE (D&C) EKG 12/20/2018 NSR. LVH. no acute changes. [facility] LAPAROSCOPY;WITH BIOPSY times 3 Laparoscopy,w Bx- Thursday LIGATE/CUT OVIDUCT(S) MAMMOGRAM SCREENING BILATERAL 04/03/2010 cat. 1, repeat in 12mths MAMMOGRAM SCREENING BILATERAL Bilateral 07/04/14 almost entirely fat, category 1 normal MICROSURGERY ADD-ON Right 07/14/2019 MICROSURGICAL SURGERY REQUIRING MICROSCOPE LISTED SEPARATELY performed by Zane Holguin OR [facility] MRA HEAD W CONTRAST 12/20/2018 no signficant stenosis, occlusion or aneurysm wtih [place]. modeate midline shift to left unchanged from prior exam. [facility] MRI BRAIN WITH CONTRAST 12/20/2018 stable post surgical changes s/p right frontal craniotomy and resecton. no acute pathology. [facility] QUIROZ SKULL FOR BIOPSY Right 07/14/2019 KENNY HOLE BIOPSY OF BRAIN performed by Pankaj Mejia MD at OR [facility] RADIATION THERAPY DOSE PLAN,COMPLEX - 30 txs/cranium REMOVAL OF TONSILS, UNDER AGE 13 STEREOTACTIC CRANIAL INTRADURAL NAVIGATION Right 07/14/2019 STEREOTACTIC CRANIAL INTRADURAL NAVIGATION performed by Pankaj Mejia MD at OR [facility] UPPER GI ENDOSCOPY/EXAM neg test/naveen test neg. [...] list as this cannot be edited in [employer]. Review of Systems: Constitutional ROS: No change [...] of UTI Completed treatment Continue to monitor At risk for malnutrition Continue to closely follow by dietary Reviewed weights PLAN: Reviewed CBC, BMP, Lytes and Continue present medication(s):as ordered. Usp Home Treatment Given: Other as above Electronically signed by: Senait Granados PA-C Over 35 minutes were spent in this visit more than half the time was spent counselling or coordinating care. documented in this encounter Plan of Treatment Upcoming Encounters Date Type Department Care Team (Late st Contact Info) Description 05/26/2024 1:30 PM EDT Office Visit Allergy/Immunology [facility] [address] [place] [address] Jhon Resendiz MD [address] [place] [address] [place] [address] 08/04/2024 9:00 AM EDT Office Visit Hematology/Oncology [facility] [address] [place] [address] Michele Han MD [address] [place] [address] [place] [address] Health Maintenance Due Date Last Done Comments [...] UTI Personal history of urinary (tract) infection At risk for malnutrition documented in this encounter Advance Directives * [...] and were consensually agreed upon. Care Teams Unisaw Operator Relationship Specialty Start Date End Date Nina Haile MD [address] [place] [address] [place] [address] PCP - General Family Medicine 10/25/19 documented as of this encounter
--- OUTSIDE RECORDS SUMMARY | 2024-06-21 03:39 | External Medical Summary | Summary of Care ---
Author Name Unknown Organization [facility] Address [address] [place] [address] Phone [phone] Care Team Providers Care Actor Understudy Name Role Phone Nina Haile MD Primary Care Provide r Reason for Visit * Reason Onset Date Comments Skilled Visit 03/18/2024 Encounter Details Date Type Department Care Team (Latest Contact Info) Description 03/18/2024 8:30 AM EST [facility] Visit [facility] 100 [facility] [place] [address] Senait Granados PA-C 100 [place] [address] Metabolic encephalopathy*; Complicated UTI (urinary tract infection); Grade III astrocytoma (HCC) Allergies Active Allergy Reactions Criticality Noted Date Comments Cimetidine 05/29/1999 Hair thinning Cimetidine Unknown 12/19/2020 Erythromycin 09/08/2000 GI side effects Penicillins 05/29/1999 Phenytoin Sodium 05/29/1999 Rash, hives documented as of this encounter (statuses as of 03/18/2024) Medications carBAMazepine ER (CARBATROL) 100 MG CP12 [...] as of this encounter (statuses as of 03/18/2024) Active Problems Problem Noted Date Diagnosed Date [...] goal LDL below 130 08/01/2010 LOC PRIM [id number] 12/03/1999 Esophageal reflux 05/29/1999 Idiopathic urticaria History of peptic ulcer disease Overview (12/08/2016): ICD-10 update of inactive term Acquired hypothyroidism documented as of this encounter (statuses as of 03/18/2024) Resolved Problems Problem Noted Date Diagnosed Date [...] as of this encounter (statuses as of 03/18/2024) Immunizations Name Administration Dates Next Due Seasonal [...] Progress Notes * Senait Granados PA-C - 03/18/2024 11:47 AM EST Name: Janay Kaplan Date of :1960 TRANSITION EVENT: Type: Skilled visit Date: March 18 Code Status: No Code This note pertains to care provided at [facility]. Please see facility medical record for original note. This note is not to be edited or addended in [employer]. Editing or addending needs to occur in the facilities medical record. Subjective: Janay Kaplan is a 63 year old female. Patient being seen for skilled visit Chief Complaint Patient presents with Skilled Visit HPI: pt here for LTC following readmission back to SNF. Pt required admission to [facility] due to acute metabolic encephalopathy due to complicated UTI. Completed antibiotics. Mood and mentation is back to baseline now. Vital signs stable. Afebrile. Eating, drinking and sleeping ok. No diarrhea or abodminal pain CBC Results: Results for orders placed or [...] mg/dL CALCIUM 8.6 8.4 - 10.2 mg/dL Creatinine Results: Lab Results Component Value Date/Time CREATININE - [facility] 0.6 02/15/2024 05:34 AM CREATININE - [facility] 0.7 01/15/2024 05:36 AM CREATININE - [facility] 0.8 01/05/2024 09:00 AM CREATININE - [facility] 0.6 03/21/2020 05:50 AM CREATININE - [facility] 0.6 10/14/2019 05:10 AM CREATININE - [facility] 0.7 07/15/2019 11:36 AM CREATININE - [facility] 0.7 05/25/1996 03:50 PM Potassium Results: Lab Results Component Value Date/Time POTASSIUM - [facility] 4.2 02/15/2024 05:34 AM POTASSIUM - [facility] 4.3 01/15/2024 05:36 AM POTASSIUM - [facility] 4.4 01/05/2024 09:00 AM POTASSIUM - [facility] SPECIMEN HEMOLYZED TEST NOT PERFORMED 03/21/2020 05:50 AM POTASSIUM - [facility] 3.7 10/14/2019 05:10 AM POTASSIUM - [facility] 4.0 07/15/2019 11:36 AM POTASSIUM - [facility] 4.5 05/25/1996 03:50 PM Sodium Results: Lab Results Component Value Date/Time SODIUM - [facility] 147 (H) 02/15/2024 05:34 AM SODIUM - [facility] 141 01/15/2024 05:36 AM SODIUM - [facility] 149 (H) 01/05/2024 09:00 AM SODIUM - [facility] 134 (L) 03/21/2020 05:50 AM SODIUM - [facility] 144 10/14/2019 05:10 AM SODIUM - [facility] 137 07/15/2019 11:36 AM SODIUM - [facility] 142 05/25/1996 03:50 PM Patient Active Problem List Diagnosis Esophageal reflux LOC PRIM [id number] Idiopathic urticaria History of peptic ulcer disease [...] LV functon. LVEF 60 to 65%.mild LVH. [facility] CARPAL TUNNEL SURGERY Right 1991 right CHEST 1 VIEW 12/20/2018 pulmonary vascular congesion. trace pleural fluid left base. [facility] CRAN LOBE,NOT TEMPORAL,ELEC Dr [place], [place] right frontal lobectomy/malignant brain tumor CT HEAD/BRAIN WO CONTRAST 12/20/2018 no acute intracranial findings. [facility] CTA NECK W CONTRAST 12/20/2018 no significant occlusion, stenosis or dissection within carotid or vertebral arteries. mild scattered plaque formation. [facility] DILATION AND CURETTAGE (D&C) EKG 12/20/2018 NSR. LVH. no acute changes. [facility] LAPAROSCOPY;WITH BIOPSY times 3 Laparoscopy,w Lisa- Thursday LIGATE/CUT OVIDUCT(S) MAMMOGRAM SCREENING BILATERAL 04/03/2010 cat. 1, repeat in 12mths MAMMOGRAM SCREENING BILATERAL Bilateral 07/04/14 almost entirely fat, category 1 normal MICROSURGERY ADD-ON Right 07/14/2019 MICROSURGICAL SURGERY REQUIRING MICROSCOPE LISTED SEPARATELY performed by Pankaj Mejia, Zane OR [facility] MRA HEAD W CONTRAST 12/20/2018 no signficant stenosis, occlusion or aneurysm wtih [place]. modeate midline shift to left unchanged from prior exam. [facility] MRI BRAIN WITH CONTRAST 12/20/2018 stable post surgical changes s/p right frontal craniotomy and resecton. no acute pathology. [facility] QUIROZ SKULL FOR BIOPSY Right 07/14/2019 KENNY HOLE BIOPSY OF BRAIN performed by Pankaj Mejia MD at OR [facility] RADIATION THERAPY DOSE PLAN,COMPLEX - 30 txs/cranium REMOVAL OF TONSILS, UNDER AGE 12 STEREOTACTIC CRANIAL INTRADURAL NAVIGATION Right 07/14/2019 STEREOTACTIC CRANIAL INTRADURAL NAVIGATION performed by Pankaj Mejia MD at OR [facility] UPPER GI ENDOSCOPY/EXAM neg test/naveen test neg. [...] Types: Cigarettes Quit date: 03/09/1991 Years since quittin.0 Smokeless tobacco: Never Tobacco comments: no passive [...] list as this cannot be edited in [employer]. Review of Systems: Constitutional ROS: No change [...] cyanosis Neuro Exam: alert with unchanged speech, hemiparesis unchanged Skin: skin color, texture, turgor are normal, no rashes or significant lesions ASSESSMENT: Metabolic encephalopathy (Primary) Back to baseline Recheck BMP next lab draw Complicated UTI (urinary tract infection) Stable asymptomatic currently Will follow Grade III astrocytoma (HCC) Stable NV findings Continue oncology followup as directed PLAN: Reviewed cBC BMP, Lytes and Continue present medication(s):as ordered. Longterm Home Treatment Given: as above Electronically signed by: Senait Granados PA-C Over 35 minutes were spent in this visit more than half the time was spent counselling or coordinating care. Cosigned by Nina Haile MD at 03/18/2024 12:11 PM EST documented in this encounter Plan of Treatment Upcoming Encounters Date Type Department Care Team (Late st Contact Info) Description 05/26/2024 1:30 PM EDT Office Visit Allergy/Immunology [facility] 200 [place] [address] Jhon Resendiz MD 200 [facility] [place] [address] 08/04/2024 9:00 AM EDT Office Visit Hematology/Oncology [facility] [place] [address] [facility] [place] [phone] Michele Han MD 200 [facility] [place], [place] [address] Health Maintenance Due Date Last Done Comments [...] and were consensually agreed upon. Care Teams Actor Understudy Relationship Specialty Start Date End Date Nina Haile MD 100 [place] [address] PCP - General Family Medicine 10/25/19 documented as of this encounter
--- OUTSIDE RECORDS SUMMARY | 2024-06-21 03:39 | External Medical Summary | Summary of Care ---
Author Name Unknown Organization [facility] Address [address] [place] [address] Phone [phone] Care Team Providers Care Fabricator Special Items Name Role Phone Nina Haile MD Primary Care Provide r Reason for Visit * Reason Onset Date Comments Skilled Visit 03/16/2024 Encounter Details Date Type Department Care Team (Latest Contact Info) Description 03/16/2024 8:30 AM EST [facility] Visit [facility] 100 [place] [address] Senait Granados PA-C 100 [place] [address] Acute metabolic encephalopathy*; Complicated UTI (urinary tract infection); Grade III astrocytoma (HCC); Left hemiparesis (HCC) Allergies Active Allergy Reactions Criticality Noted Date Comments Cimetidine 05/29/1999 Hair thinning Cimetidine Unknown 12/19/2020 Erythromycin 09/08/2000 GI side effects Penicillins 05/29/1999 Phenytoin Sodium 05/29/1999 Rash, hives documented as of this encounter (statuses as of 03/16/2024) Medications carBAMazepine ER (CARBATROL) 100 MG CP12 Take 2 Capsules by mouth in the morning and 2 Capsules before bedtime. (00/2100).. 60 Cap 9 Active linaclotide (LINZESS) 72 [...] as of this encounter (statuses as of 03/16/2024) Active Problems Problem Noted Date Diagnosed Date [...] goal LDL below 130 08/01/2010 LOC PRIM [id number] 12/03/1999 Esophageal reflux 05/29/1999 Idiopathic urticaria History of peptic ulcer disease Overview (12/08/2016): ICD-10 update of inactive term Acquired hypothyroidism documented as of this encounter (statuses as of 03/16/2024) Resolved Problems Problem Noted Date Diagnosed Date [...] as of this encounter (statuses as of 03/16/2024) Immunizations Name Administration Dates Next Due Seasonal [...] 1:30 PM EDT Office Visit Allergy/Immunology [facility] [place] [address] [place] [address] [address] Jhon Resendiz MD 200 [facility] [place] [address] 08/04/2024 9:00 AM EDT Office Visit Hematology/Oncology [facility] [place] [address] [address] Michele Han MD 200 [facility] [place] [address] Health Maintenance Due Date Last Done Comments [...] as of this encounter Visit Diagnoses Diagnosis Acute metabolic encephalopathy- Primary Complicated UTI (urinary tract infection) [...] and were consensually agreed upon. Care Teams Fabricator Special Items Relationship Specialty Start Date End Date Nina Haile MD 100 [facility] [place] [address] PCP - General Family Medicine 10/25/19 documented as of this encounter
--- OUTSIDE RECORDS SUMMARY | 2024-06-21 03:39 | External Medical Summary ---
Author Name Unknown Address Unknown Organization K[facility] [address] [place] [address] Laboratory Report Ordering Provider Test Date Status RUSSELL CHOWDARY 03/21/2024 05:38:00 Final Observation Date Value Abnormality Reference (Units ) Status BUN 03/21/2024 05:38:00 15 6-20 (mg/dL) Final Creatinine 03/21/2024 05:38:00 0.7 0.5-1.0 (mg/dL) Final Glomerular filtration rate/1.73 sq M.predicted [Volume Rate/Area] in Serum, Plasma or Blood by Creatinine-based formula (CKD-EPI) 03/21/2024 05:38:00 >90 >=60 (mL/min) Final eGFR is calculated based on the CKD-EPI 2020 equation. Sodium 03/21/2024 05:38:00 147 Above high normal 13 5-146 (mmol/L) Final Potassium 03/21/2024 05:38:00 4.2 3.5-5.1 (m mol/L) Final Cl 03/21/2024 05:38:00 113 Above high normal 98 -107 (mmol/L) Final CO2 03/21/2024 05:38:00 25 22-32 (mmo l/L) Final Anion gap 03/21/2024 05:38:00 9 7-15 (mmol /L) Final Glucose 03/21/2024 05:38:00 79 70-120 (mg /dL) Final Calcium 03/21/2024 05:38:00 8.5 8.4-10.2 ( mg/dL) Final Performing Location LABORATORY [facility] [address] [place] [address]
--- OUTSIDE RECORDS SUMMARY | 2024-06-21 03:39 | External Medical Summary | Summary of Care ---
Author Name Unknown Organization [facility] Address [address] [place] [address] Phone [phone] Care Team Providers Care Librarian Assistant Name Role Phone Nina Haile MD Primary Care Provide r Reason for Visit * Reason Onset Date Comments Residential Visit - Readmission 03/24/2024 Encounter Details Date Type Department Care Team (Latest Contact Info) Description 03/11/2024 10:00 AM EST Residential Visit [facility] at [address] [address] Senait Granados PA-C [address] [place] [address] Metabolic encephalopathy*; Complicated UTI (urinary tract infection); Hypernatremia; Grade III astrocytoma (HCC); HTN, goal below 140/90; Left hemiparesis (HCC); Right upper lobe pulmonary nodule Allergies Active Allergy Reactions Criticality Noted Date Comments Cimetidine 05/29/1999 Hair thinning Cimetidine Unknown 12/19/2020 Erythromycin 09/08/2000 GI side effects Penicillins 05/29/1999 Phenytoin Sodium 05/29/1999 Rash, hives documented as of this encounter (statuses as of 03/24/2024) Medications carBAMazepine ER (CARBATROL) 100 MG CP12 [...] as of this encounter (statuses as of 03/24/2024) Active Problems Problem Noted Date Diagnosed Date [...] goal LDL below 130 08/01/2010 LOC PRIM [id number] 12/03/1999 Esophageal reflux 05/29/1999 Idiopathic urticaria History of peptic ulcer disease Overview (12/08/2016): ICD-10 update of inactive term Acquired hypothyroidism documented as of this encounter (statuses as of 03/24/2024) Resolved Problems Problem Noted Date Diagnosed Date [...] as of this encounter (statuses as of 03/24/2024) Immunizations Name Administration Dates Next Due Seasonal [...] 05/26/2024 1:30 PM EDT Office Visit Allergy/Immunology [facility] [address] [place] [address] [address] Jhon Resendiz MD 200 [facility] [place] [address] 08/04/2024 9:00 AM EDT Office Visit Hematology/Oncology [facility] [address] [id number] Michele Han MD [address] [address] Health Maintenance Due Date Last Done Comments [...] infection) Urinary tract infection, site not specified Hypernatremia Hyperosmolality and/or hypernatremia Grade III astrocytoma (HCC) Malignant neoplasm of brain, unspecified site HTN, goal below 140/90 Unspecified essential hypertension Left hemiparesis (HCC) Hemiplegia, unspecified, affecting unspecified side Right upper lobe pulmonary nodule documented in [...] and were consensually agreed upon. Care Teams Librarian Assistant Relationship Specialty Start Date End Date Nina Haile MD 100 [facility] [address] PCP - General Family Medicine 10/25/19 documented as of this encounter
--- OUTSIDE RECORDS SUMMARY | 2024-06-21 03:39 | External Medical Summary | Summary of Care ---
Author Name Unknown Organization [facility] Address [address] [place] [address] Phone [phone] Care Team Providers Care Thread Grinder Tool Name Role Phone Nina Haile MD Primary Care Provide r Reason for Visit * Reason Onset Date Comments Skilled Visit 03/22/2024 Encounter Details Date Type Department Care Team (Latest Contact Info) Description 03/22/2024 10:30 AM EST Residential Visit [facility] 100 [facility] [place] [address] Senait Granados PA-C [address] [place] [address] Metabolic encephalopathy*; Complicated UTI (urinary tract infection); Grade III astrocytoma (HCC); Skin thinning Allergies Active Allergy Reactions Criticality Noted Date Comments Cimetidine 05/29/1999 Hair thinning Cimetidine Unknown 12/19/2020 Erythromycin 09/08/2000 GI side effects Penicillins 05/29/1999 Phenytoin Sodium 05/29/1999 Rash, hives documented as of this encounter (statuses as of 03/22/2024) Medications carBAMazepine ER (CARBATROL) 100 MG CP12 [...] as of this encounter (statuses as of 03/22/2024) Active Problems Problem Noted Date Diagnosed Date [...] goal LDL below 130 08/01/2010 LOC PRIM [id number] 12/03/1999 Esophageal reflux 05/29/1999 Idiopathic urticaria History of peptic ulcer disease Overview (12/08/2016): ICD-10 update of inactive term Acquired hypothyroidism documented as of this encounter (statuses as of 03/22/2024) Resolved Problems Problem Noted Date Diagnosed Date [...] as of this encounter (statuses as of 03/22/2024) Immunizations Name Administration Dates Next Due Seasonal [...] 05/26/2024 1:30 PM EDT Office Visit Allergy/Immunology [facility] [address] [place] [address] Jhon Resendiz MD 200 [place] [address] 08/04/2024 9:00 AM EDT Office Visit Hematology/Oncology [facility] [address] [place] [phone] Michele Han MD 200 [place] [address] Health Maintenance Due Date Last Done Comments [...] (HCC) Malignant neoplasm of brain, unspecified site Skin thinning Other specified disorder of skin documented in this encounter Advance Directives * [...] and were consensually agreed upon. Care Teams Thread Grinder Tool Relationship Specialty Start Date End Date Nina Haile MD 100 [facility] [address] PCP - General Family Medicine 10/25/19 documented as of this encounter
--- OUTSIDE RECORDS SUMMARY | 2024-06-21 03:39 | External Medical Summary | Summary of Care ---
Author Name Unknown Organization [facility] Address [address] [facility] [place] [address] Phone [phone] Care Team Providers Care Injection Mold Technician Name Role Phone Nina Haile MD Primary Care Provide r Encounter Details Date Type Department Care Team (Late st Contact Info) Description 03/28/2024 Population Health External Data Unspecified Department Allergies Active Allergy Reactions Criticality Noted Date Comments Cimetidine 05/29/1999 Hair thinning Cimetidine Unknown 12/19/2020 Erythromycin 09/08/2000 GI side effects Penicillins 05/29/1999 Phenytoin Sodium 05/29/1999 Rash, hives documented as of this encounter (statuses as of 03/28/2024) Medications carBAMazepine ER (CARBATROL) 100 MG CP12 [...] as of this encounter (statuses as of 03/28/2024) Active Problems Problem Noted Date Diagnosed Date [...] goal LDL below 130 08/01/2010 LOC PRIM [id number] 12/03/1999 Esophageal reflux 05/29/1999 Idiopathic urticaria History of peptic ulcer disease Overview (12/08/2016): ICD-10 update of inactive term Acquired hypothyroidism documented as of this encounter (statuses as of 03/28/2024) Resolved Problems Problem Noted Date Diagnosed Date [...] as of this encounter (statuses as of 03/28/2024) Immunizations Name Administration Dates Next Due Seasonal [...] 05/26/2024 1:30 PM EDT Office Visit Allergy/Immunology [facility] 200 [facility] [place] [address] Jhon Resendiz MD 200 [facility] [place] [address] 08/04/2024 9:00 AM EDT Office Visit Hematology/Oncology [facility] 200 [facility] [place] [phone] Michele Han MD 200 [facility] [place] [address] Health Maintenance Due Date Last Done Comments [...] 01/03/2022 01/03/2021, 04/09/2014, 05/28/2011, Additional history exists Cervical Cancer Screening [...] and were consensually agreed upon. Care Teams Injection Mold Technician Relationship Specialty Start Date End Date Nina Haile MD [address] [place], [place] [address] [address] PCP - General Family Medicine 10/25/19 documented as of this encounter
--- OUTSIDE RECORDS SUMMARY | 2024-06-21 03:39 | External Medical Summary ---
Author Name Unknown Address Unknown Organization [facility] [address] [place] [address] Laboratory Report Ordering Provider Test Date Status RUSSELL CHOWDARY 03/21/2024 05:38:00 Final Observation Date Value Abnormality Reference (Units ) Status WBC, Total 03/21/2024 05:38:00 4.87 4.00-10.8 0 (K/uL) Final RBC 03/21/2024 05:38:00 4.05 3.85-5.15 (M/uL) Final Hemoglobin 03/21/2024 05:38:00 12.9 12.0-15.3 (g/dL) Final HCT 03/21/2024 05:38:00 40.8 36.0-45.2 (%) Final MCV 03/21/2024 05:38:00 100.7 81.5-97.5 (fL) Final MCH 03/21/2024 05:38:00 31.9 27.0-34.0 (pg) Final MCHC 03/21/2024 05:38:00 31.6 32.0-36.0 (g/dL) Final RDW 03/21/2024 05:38:00 13.9 11.5-15.5 (%) Final Platelets 03/21/2024 05:38:00 176 140-400 (K /uL) Final MPV 03/21/2024 05:38:00 10.4 6.6-11.1 ( fL) Final [facility] Location [facility] [address] [place] [address]
[2024-06-21] MEDS: VANCOMYCIN HCL 1,000 MG/270 ML BAG IV SCH (05:32)
[2024-06-21] MEDS: OSELTAMIVIR PHOSPHATE 75 MG CAP PO SCH (05:32)
[2024-06-21] MEDS: PANTOprazole 40 MG TAB PO SCH (05:32)
[2024-06-21] MEDS: LEVOTHYROXINE SODIUM 50 MCG TABLET PO SCH (05:32)
[2024-06-21 07:39] LABS: Hematocrit (blood only) 41.5 % (37.0-47.0); Hemoglobin 13.4 g/dl (12.0-16.0); Immature Granulocytes # (auto) 0.01 K/uL (0.01-0.20); Immature Granulocytes % (auto) 0.4 %; Lymphocytes # (auto) 1.08 K/uL (1.20-3.40); Lymphocytes % (auto) 38.4 %; Mean Corpuscular Hemoglobin 32.3 pg (25.0-34.0); Mean Corpuscular Hgb Conc 32.3 g/dL (32.0-36.0); Mean Platelet Volume 10.1 fL (9.4-12.4); Monocytes # (auto) 0.32 K/uL (0.11-0.59); Monocytes % (auto) 11.4 %; Neutrophils % (auto) 49.8 %; Platelet Count 95 K/uL (130-400); Red Blood Count 4.15 M/uL (4.20-5.40); White Blood Count 2.81 K/ul (4.8-10.8)
[2024-06-21 08:00] LABS: Albumin Level 2.9 gm/dl (3.4-5.0); BUN Creatinine Ratio 21.6 (10-20); Bilirubin,Total 0.4 mg/dl (0.2-1.0); Calcium 7.5 mg/dl (8.6-10.3); Creatinine Clr Calc Pharmacy 91.6 ml/min; Globulin 2.8 gm/dl (2.5-4.0); Potassium 3.9 mmol/L (3.5-5.1); Total Protein 5.7 gm/dl (6.0-8.3)
[2024-06-21] MEDS: CYANOCOBALAMIN (B-12) 500 MCG TABLET PO SCH (08:02)
[2024-06-21] MEDS: CHOLECALCIFEROL 25 MCG (1000 UNITS) TAB PO SCH (08:02)
[2024-06-21] MEDS: amLODIPine BESYLATE 5 MG TAB PO SCH (08:02)
[2024-06-21] MEDS: MAGNESIUM OXIDE 400 MG TAB PO SCH (08:03)
[2024-06-21] MEDS: MULTIVITAMIN TAB PO SCH (08:03)
[2024-06-21] MEDS: ASPIRIN 81 MG ECTAB PO SCH (08:03)
[2024-06-21] MEDS: POTASSIUM CHLORIDE CRTAB 20 MEQ TABCR PO SCH (08:07)
--- NOTE | 2024-06-21 09:42 | Pharmacy Report ---
Pharmacy PK ABX Note - Date of Service June 21, 2024 - Assessment and Plan Assessment 63 year old F receiving vancomycin and meropenem for treatment of possible sepsis/UTI. Patient presents with fever and increased lethargy with UA suggestive of UTI. Patient with history of ESBL UTI * Influenza A postitive * MRSA nasal swab is negative * Blood culture x 2 and urine culture from 06/20 are all pending. Day # 2 of antimicrobial therapy. Plan Vancomycin * Loading dose: 1250 mg IV x 1 * Maintenance dose: 1000 mg IV every 12 hours * Regimen is predicted to achieve target AUC/LAWRENCE of 400-600 mg/L.hr * A vancomycin level will be obtained if the vancomycin is continued beyond 48 hours. Pharmacy will continue to follow and will adjust dose/frequency as necessary. Thank you. Pharmacy has transitioned to AUC monitoring for vancomycin. AUC/LAWRENCE is the pr eferred PK/PD target and is associated with decreased risk of nephrotoxicity compared to traditional trough targets.
[2024-06-21] MEDS: modafiniL 100 MG TAB PO SCH (10:15)
--- NOTE | 2024-06-21 10:24 | Hospitalist Progress Note ---
Date of Service June 21, 2024 Assessment & Plan (1) Fever: (2) Influenza A: Plan 63 year old woman with h/o CVA, hypertension, hyperlipidemia, seizure disorder, astrocytoma status post surgery/chemoradiation, traumatic brain injury as per records, excessive sleepiness on modafinil, GERD, hypothyroidism, cognitive impairment, chronic urticaria as per records, chronic constipation, history ESBL UTI as per records, past tobacco abuse who presents from rehab for fever and increased lethargy Sepsis POA Influenza A Influenza A is positive Lactate elevated on admission UA did not show any nitrite/esterase and 0-5 WBC, which makes UTI doubtful Had fever of 39 on admission Continue tamiflu Currently on empirical meropenem and vancomycin Follow-up on blood culture and urine culture. History of ESBL UTI in the past. Chronic medical conditions; CVA- continue on aspirin Hypertension,- continue on amlodipine Hyperlipidemia on statin Rx Hx seizure disorder on Tegretol Astrocytoma status post surgery/chemoradiation Excessive sleepiness on modafinil DNR/DNI as per advanced directive from the facility DVT SCDs for now. Thrombocytopenia RN advised to crush pills in applesauce Continue minced and moist diet with aspiration precautions If any other swallowing issues, will get INTERMEDIATE FRAME TENDER eval I spent a total of 50 minutes coordinating, documenting and providing care for this patient excluding time spent in performance of separately billed services Admission and Anticipated Discharge Date Admission Date: June 20, 2024 Subjective Patient seen and examined Patient is a very poor historian, currently Alert and oriented to person only RN reports cough Patient had problems swallowing her pills this AM but had no problems with food Has chronic left hemiparesis per RN Physical Exam Constitutional: + ill appearing; no acute distress Eyes: PERRL, conjunctivae normal, anicteric sclerae Respiratory: normal respiratory effort, lungs clear to auscultation Cardiovascular: Rate/Rhythm: regular rate and regular rhythm Gastrointestinal (Abdomen): normal bowel sounds, soft, nontender, no hepatosplenomegaly Musculoskeletal: No pedal edema Neurologic: Alert and oriented to person. Cooperative Left hemiplegia Results & Data Results & Data Vital Signs (Past 12 Hours) Vital Signs Temp Pulse Pulse Resp BP Pulse Ox O2 Del Method 06/21/24 07:30 36.6 C 77 16 102/73 94 Nasal Cannula 06/21/24 07:15 76 06/21/24 04:15 36.5 C 76 18 106/53 L 94 Nasal Cannula 06/20/24 23:18 36.7 C 95 H 18 104/55 L 96 Nasal Cannula O2 Flow Rate 06/21/24 07:30 4 06/21/24 07:15 06/21/24 04:15 4 06/20/24 23:18 3 Laboratory Results Abnormal lab results 06/20/24 06/20/24 06/20/24 Range/Units 16:12 16:41 17:24 WBC 3.21 L (4.8-10.8) K/ul RBC 4.15 L (4.20-5.40) M/uL RDW Std Deviation 47.0 H (36.4-46.3) fL Plt Count 94 L (130-400) K/uL Lymph # (Auto) 0.46 L (1.20-3.40) K/uL VBG pH 7.30 L (7.36-7.41) Chloride 108 H (98-107) mmol/L Creatinine (0.6-1.2) mg/dl BUN/Creatinine Ratio (10-20) Lactate 5.3 H* (0.4-2.0) mmol/L Calcium 7.7 L (8.6-10.3) mg/dl Magnesium 1.6 L (1.7-2.4) mg/dl AST 109 H (13-39) U/L Alkaline Phosphatase 117 H (34-104) U/L Total Protein (6.0-8.3) gm/dl Albumin 3.1 L (3.4-5.0) gm/dl Procalcitonin 0.68 H (0-0.5) ng/ml Urine Appearance Cloudy A (Clear) Urine Protein 1+ H (Negative) Urine Blood 2+ H (Negative) Urine RBC 3-5 H (0-2) /hpf Ur Epithelial Cells >20 H (0-2) /hpf Urine Bacteria 4+ H (None Seen) Influenza Type A (PCR) Positive A (Neg) 06/20/24 06/21/24 Range/Units 19:36 07:01 WBC 2.81 L (4.8-10.8) K/ul RBC 4.15 L (4.20-5.40) M/uL RDW Std Deviation 48.0 H (36.4-46.3) fL Plt Count 95 L (130-400) K/uL Lymph # (Auto) 1.08 L (1.20-3.40) K/uL VBG pH (7.36-7.41) Chloride 112 H (98-107) mmol/L Creatinine 0.51 L (0.6-1.2) mg/dl BUN/Creatinine Ratio 21.6 H (10-20) Lactate 3.0 H* (0.4-2.0) mmol/L Calcium 7.5 L (8.6-10.3) mg/dl Magnesium (1.7-2.4) mg/dl AST 105 H (13-39) U/L Alkaline Phosphatase 110 H (34-104) U/L Total Protein 5.7 L (6.0-8.3) gm/dl Albumin 2.9 L (3.4-5.0) gm/dl Procalcitonin (0-0.5) ng/ml Urine Appearance (Clear) Urine Protein (Negative) Urine Blood (Negative) Urine RBC (0-2) /hpf Ur Epithelial Cells (0-2) /hpf Urine Bacteria (None Seen) Influenza Type A (PCR) (Neg)
--- NOTE | 2024-06-21 11:42 | Electrocardiogram Report ---
Test Reason : Blood Pressure : */* mmHG Vent. Rate : 105 BPM Atrial Rate : * BPM P-R Int : * ms QRS Dur : 70 ms QT Int : 352 ms P-R-T Axes : * -24 210 degrees QTcB Int : 465 ms Poor data quality, interpretation may be adversely affected Probably sinus tachycardia Low voltage QRS Possible Anterolateral infarct (cited on or before 04-Jun-2022) Abnormal ECG When compared with ECG of 06-Mar-2024 14:33, Criteria for Inferior infarct are no longer Present Questionable change in initial forces of Anterolateral leads Confirmed by Manuel Brandon ([id number]) on 06/21/2024 11:42:37 AM Referred By: Confirmed By: Manuel Brandon
[2024-06-22 10:44] LABS: Hematocrit (blood only) 38.4 % (37.0-47.0); Hemoglobin 12.7 g/dl (12.0-16.0); Immature Granulocytes # (auto) 0.03 K/uL (0.01-0.20); Immature Granulocytes % (auto) 0.8 %; Lymphocytes # (auto) 0.84 K/uL (1.20-3.40); Lymphocytes % (auto) 22.8 %; Mean Corpuscular Hemoglobin 32.2 pg (25.0-34.0); Mean Corpuscular Hgb Conc 33.1 g/dL (32.0-36.0); Mean Corpuscular Volume 97.5 fL (80.0-100.0); Mean Platelet Volume 9.4 fL (9.4-12.4); Monocytes # (auto) 0.24 K/uL (0.11-0.59); Monocytes % (auto) 6.5 %; Neutrophils # (auto) 2.57 K/uL (1.40-6.50); Neutrophils % (auto) 69.9 %; Platelet Count 87 K/uL (130-400); RDW Coefficient of Variation 13.1 % (11.5-14.5); RDW Standard Deviation 47.1 fL (36.4-46.3); Red Blood Count 3.94 M/uL (4.20-5.40); White Blood Count 3.68 K/ul (4.8-10.8)
[2024-06-22 11:14] LABS: Calcium 7.4 mg/dl (8.6-10.3); Potassium 3.3 mmol/L (3.5-5.1)
[2024-06-22 11:20] LABS: BUN Creatinine Ratio 14.3 (10-20); Creatinine Clr Calc Pharmacy 83.8 ml/min
[2024-06-22] MEDS: SODIUM CHLORIDE 0.9% 500 ML IV ONE (12:22)
[2024-06-22] MEDS: diphenhydrAMINE 50 MG/ML VIAL IV STA (12:24)
--- NOTE | 2024-06-22 12:52 | XRay Report ---
XR chest 1V portable CLINICAL HISTORY: hypoxia, influenza COMPARISON STUDY: 06/20/2024 FINDINGS: Stable mild cardiomegaly without pulmonary vascular congestion. No effusion, consolidation, or pneumothorax. There is inferior subluxation of the left shoulder. IMPRESSION: No acute findings. ACT 112: Negative or not required by law. Electronically signed by: Alex Sanchez M.D. 06/22/2024 12:50 PM
[2024-06-22] MEDS: SODIUM CHLORIDE 0.9% 1,000 ML IV SCH (12:55)
[2024-06-22] MEDS: POTASSIUM CHLORIDE PWD 20 MEQ PACK PO STA (12:56)
[2024-06-22] MEDS: LEVALBUTEROL 1.25 MG/3 ML NEB NEB SCH (13:14)
[2024-06-22] MEDS ORDERED: Nursing to Pharmacy Communication SCH (13:45)
[2024-06-22] MEDS: levoFLOXacin/D5W 750 MG/150 ML BAG IV SCH (15:44)
[2024-06-22] MEDS: SODIUM CHLORIDE 0.9% 1,000 ML IV ONE (16:25)
--- NOTE | 2024-06-22 16:43 | Hospitalist Progress Note ---
Date of Service June 22, 2024 Assessment & Plan (1) Fever: (2) Influenza A: Plan per previous hospitalist notes with addendum: 63 year old woman with h/o CVA, hypertension, hyperlipidemia, seizure disorder, astrocytoma status post surgery/chemoradiation, traumatic brain injury as per records, excessive sleepiness on modafinil, GERD, hypothyroidism, cognitive impairment, chronic urticaria as per records, chronic constipation, history ESBL UTI as per records, past tobacco abuse who presents from rehab for fever and increased lethargy Sepsis POA Influenza A Acute bronchitis possible bacterial superinfection UTI Influenza A is positive Lactate elevated on admission UA did not show any nitrite/esterase and 0-5 WBC, which makes UTI doubtful Had fever of 39 on admission Continue tamiflu Currently on empirical meropenem and vancomycin Follow-up on blood culture and urine culture. History of ESBL UTI in the past. 06/22 Blood pressure on the lower side, possible hypovolemic component as patient's oral intake is very poor Additional 1 L IV fluid bolus ordered in the afternoon Continue IV NSS at 100 cc/h Blood cultures: Pending Sputum culture: Ordered Nasal MRSA: Negative Transition from IV vancomycin plus meropenem to Levaquin Continue Tamiflu monitor closely Acute hypoxic respiratory failure secondary to influenza A bronchitis, possible superimposed bacterial infection continue Tamiflu, antibiotics nebs 4 times daily Wean off O2 accordingly Bilateral lower extremity erythematous rash-likely secondary to vancomycin, discontinued, Benadryl IV 1 dose given Monitor closely Sacral decub ulcer Wound care nurse consulted Reposition every 2 hours Chronic medical conditions; CVA- continue on aspirin Hypertension,- hold amlodipine in light of marginal blood pressures Hyperlipidemia on statin Rx Hx seizure disorder on Tegretol Astrocytoma status post surgery/chemoradiation Excessive sleepiness on modafinil DNR/DNI as per advanced directive from the facility DVT SCDs for now. Thrombocytopenia Diisposition Lives at [facility] facility Admission and Anticipated Discharge Date Admission Date: June 20, 2024 Subjective follow-up for sepsis, influenza A infection, etc. Seen resting in bed, comfortable, not in distress Appears weak, somewhat drowsy, but tries to answer questions, answering most questions appropriately States she feels okay overall Has some occasional shortness of breath, productive cough Review of Systems Review of Systems: all noted and negative except for above Physical Exam Physical Exam: General- oriented x 1-2, not in distress, speaks in sentences with no effort or accessory muscle use Weak, drowsy Eyes- anicteric Neck- no JVD Lungs-Mild scattered rhonchi bilaterally With some faint wheeze Good air entry bilaterally Heart- normal rate, regular rhythm; no murmurs Abdomen- normal bowel sounds, nondistended, soft, nontender Extremities- no pretibial edema, no calf tenderness Buttock-small superficial wound over the sacral area, no signs of infection Neuro- Somewhat drowsy, oriented x 1-2; no gross focal neurologic deficits Skin- warm & dry Results & Data Results & Data Vital Signs (Past 12 Hours) Vital Signs Temp Pulse Pulse Resp BP Pulse Ox O2 Del Method 06/22/24 15:54 81 06/22/24 15:48 37.2 C 76 16 86/63 L 93 Nasal Cannula 06/22/24 13:14 78 18 91 Room Air 06/22/24 11:58 37.9 C H 78 18 90/64 L 90 Room Air 06/22/24 10:15 Room Air 06/22/24 07:45 37 C 91 H 18 110/73 80 L Room Air 06/22/24 07:00 88 O2 Flow Rate 06/22/24 15:54 06/22/24 15:48 2 06/22/24 13:14 06/22/24 11:58 06/22/24 10:15 06/22/24 07:45 06/22/24 07:00 all noted and reviewed including below
[2024-06-22] MEDS: POTASSIUM CHLORIDE 10 MEQ TABCR PO STA (17:09)
[2024-06-23 08:58] LABS: Hematocrit (blood only) 33.3 % (37.0-47.0); Hemoglobin 11.1 g/dl (12.0-16.0); Immature Granulocytes # (auto) 0.01 K/uL (0.01-0.20); Immature Granulocytes % (auto) 0.4 %; Lymphocytes # (auto) 1.11 K/uL (1.20-3.40); Lymphocytes % (auto) 48.7 %; Mean Corpuscular Hemoglobin 32.7 pg (25.0-34.0); Mean Corpuscular Hgb Conc 33.3 g/dL (32.0-36.0); Mean Corpuscular Volume 98.2 fL (80.0-100.0); Mean Platelet Volume 9.9 fL (9.4-12.4); Monocytes # (auto) 0.16 K/uL (0.11-0.59); Neutrophils % (auto) 43.9 %; Platelet Count 61 K/uL (130-400); RDW Coefficient of Variation 13.1 % (11.5-14.5); RDW Standard Deviation 46.7 fL (36.4-46.3); Red Blood Count 3.39 M/uL (4.20-5.40); White Blood Count 2.28 K/ul (4.8-10.8)
[2024-06-23 09:35] LABS: Calcium 7.4 mg/dl (8.6-10.3); Magnesium 1.6 mg/dl (1.7-2.4)
[2024-06-23 09:40] LABS: BUN Creatinine Ratio 15.4 (10-20)
[2024-06-23] MEDS: LACTULOSE SYRUP 30 GM/45 ML UDP PO STA (15:22)
--- NOTE | 2024-06-23 17:10 | Hospitalist Progress Note ---
Date of Service June 23, 2024 Assessment & Plan (1) Fever: (2) Influenza A: Plan per previous hospitalist notes with addendum: 63 year old woman with h/o CVA, hypertension, hyperlipidemia, seizure disorder, astrocytoma status post surgery/chemoradiation, traumatic brain injury as per records, excessive sleepiness on modafinil, GERD, hypothyroidism, cognitive impairment, chronic urticaria as per records, chronic constipation, history ESBL UTI as per records, past tobacco abuse who presents from rehab for fever and increased lethargy Sepsis POA Influenza A Acute bronchitis possible bacterial superinfection UTI Influenza A is positive Lactate elevated on admission UA did not show any nitrite/esterase and 0-5 WBC, which makes UTI doubtful Had fever of 39 on admission Continue tamiflu Currently on empirical meropenem and vancomycin Follow-up on blood culture and urine culture. History of ESBL UTI in the past. 06/22 Blood pressure on the lower side, possible hypovolemic component as patient's oral intake is very poor Additional 1 L IV fluid bolus ordered in the afternoon Continue IV NSS at 100 cc/h Blood cultures: Pending Sputum culture: Ordered Nasal MRSA: Negative Transition from IV vancomycin plus meropenem to Levaquin Continue Tamiflu monitor closely 06/23 Blood pressure still marginal Continue with gentle IV fluids Monitor blood pressure closely Blood cultures: Negative so far x 48 hours Sputum culture: Pending collection Nasal MRSA: Negative Continue Levaquin Continue Tamiflu Acute hypoxic respiratory failure secondary to influenza A bronchitis, possible superimposed bacterial infection continue Tamiflu, Levaquin nebs 4 times daily weaned off oxygen Pancytopenia CBC continues to trend down Peripheral smear:The peripheral smear is remarkable for thrombocytopenia and lymphopenia. Common causes of thrombocytopenia include, but are not limited to, inadequate production by megakaryocytes, intramedullary loss of platelets (as in myelodysplasia), anaplasmosis infection, or a platelet consumptive process. Features of a myelodysplastic process or anaplasmosis neutrophilic inclusions are not identified. ITP generally does not show morphologic findings on a peripheral smear and should be ruled out through other methods if there is a concern for this disorder. The lymphopenia is likely related to the current influenza infection. Clinical correlation is recommended. No bleeding Hematology service consulted Bilateral lower extremity erythematous rash-likely secondary to vancomycin, discontinued, Benadryl IV 1 dose given Monitor closely Sacral decub ulcer Wound care nurse consulted Reposition every 2 hours Chronic medical conditions CVA- continue on aspirin Hypertension,- hold amlodipine in light of marginal blood pressures Hyperlipidemia on statin Rx Hx seizure disorder on Tegretol Astrocytoma status post surgery/chemoradiation Excessive sleepiness on modafinil DNR/DNI as per advanced directive from the facility DVT SCDs for now. Thrombocytopenia Disposition [facility] at [facility] facility Admission and Anticipated Discharge Date Admission Date: June 20, 2024 Subjective follow-up for sepsis secondary to Influenza A, UTI, etc. seen resting in bed, more awake and alert, more conversant States she feels better today compared to yesterday Breathing is improving still having some cough No shortness of breath Denies abdominal pain, problems with urination No other new symptom Review of Systems Review of Systems: all noted and negative except for above Physical Exam Physical Exam: General- oriented x 1-2, not in distress, speaks in sentences with no effort or accessory muscle use Eyes- anicteric Neck- no JVD Lungs- mild bilateral rhonchi, good air entry bilaterally Heart- normal rate, regular rhythm; no murmurs Abdomen- normal bowel sounds, nondistended, soft, nontender Extremities- no pretibial edema, no calf tenderness Neuro- alert, oriented x 1-2; no gross focal neurologic deficits Skin- warm & dry Results & Data Results & Data Vital Signs (Past 12 Hours) Vital Signs Temp Pulse Pulse Resp BP Pulse Ox Pulse Ox 06/23/24 16:00 91 06/23/24 15:09 36.8 C 79 20 100/67 91 06/23/24 14:59 72 06/23/24 14:00 72 18 95 06/23/24 11:46 36.8 C 76 20 90/59 L 94 06/23/24 08:35 36.6 C 64 102/71 92 06/23/24 08:24 06/23/24 07:34 74 15 92 06/23/24 07:12 71 O2 Del Method O2 Del Method FiO2 06/23/24 16:00 Room Air 06/23/24 15:09 Room Air 06/23/24 14:59 06/23/24 14:00 Room Air 06/23/24 11:46 Room Air 06/23/24 08:35 Room Air 06/23/24 08:24 Room Air 06/23/24 07:34 Room Air 21 06/23/24 07:12 all noted and reviewed including below
--- NOTE | 2024-06-23 17:36 | Oncology Consultation ---
Date of Consultation June 23, 2024 Assessment & Plan (1) Pancytopenia: Most likely this is a result of acute influenza infection. At this point my recommendation is going to be supportive care with transfusion of packed red blood cells if the hemoglobin is less than 7 g/dL, transfusion of platelets if the patient is actively bleeding or the platelet count is less than 10,000/mcL. Plan Thank you for this interesting hematological consult. Hematology will continue to follow the patient make appropriate recommendations. History of Present Illness Reason for Consultation: pancytopenia influenza A history of chemoradiation for astrocytoma Attending Physician: Javon Solis MD History of Present Illness patient with a history of surgery/chemoradiation/seizure/CVA who has been admitted because of lethargy high fever. She was positive for influenza A at baseline. She was noted to have pancytopenia. Hematology has been consulted to assist in management of this patient with pancytopenia post chemoradiation currently with influenza infection. Peripheral smear review remarkable for thrombocytopenia and lymphopenia. Allergies Allergy/AdvReac Type Severity Reaction Status Date / Time ceftriaxone [From Rocephin] Allergy Intermediate Hives Verified 01/08/24 15:32 Penicillins Allergy Intermediate HIVES Verified 07/14/22 20:09 cimetidine Allergy Unknown ON WIND Verified 07/14/22 20:09 [facility] erythromycin base Allergy Unknown ON Verified 07/14/22 20:09 [facility] phenytoin AdvReac Intermediate HIVES Verified 07/14/22 20:09 Home Medications Medication Instructions Recorded Confirmed Type cholecalciferol (vitamin D3) 25 1,000 unit PO QAM 06/06/18 06/20/24 History mcg (1,000 unit) capsule (Vitamin D3) cyanocobalamin (vitamin B-12) 500 500 mcg PO QAM 06/06/18 06/20/24 History mcg tablet (Vitamin B-12) levothyroxine 50 mcg tablet 50 mcg PO DAILYBB 06/06/18 06/20/24 History (Synthroid) linaclotide 72 mcg capsule 72 mcg PO HS 06/06/18 06/20/24 History (Linzess) multivitamin 1 tab PO QAM 06/06/18 06/20/24 History acetaminophen 500 mg tablet 500 mg PO TID 12/20/18 06/20/24 History aspirin 81 mg tablet,delayed 81 mg PO QAM 12/19/20 06/20/24 History release cetirizine 10 mg tablet 10 mg PO BID 12/19/20 06/20/24 History modafinil 200 mg tablet 200 mg PO QAM 12/19/20 06/20/24 History omeprazole 20 mg capsule,delayed 20 mg PO DAILYBB 12/19/20 06/20/24 History release potassium chloride 20 mEq 20 meq PO DAILY 12/19/20 06/20/24 History tablet,extended release rosuvastatin 40 mg tablet 40 mg PO HS 12/19/20 06/20/24 History mirtazapine 15 mg tablet 15 mg PO HS 06/04/22 06/20/24 History Magic Mix 1 applic topical TID 07/14/22 06/20/24 History carbamazepine 200 mg 200 mg PO BID 07/14/22 06/20/24 History capsule,extended release [id number] magnesium oxide 400 mg (241.3 mg 400 mg PO QAM #30 tabs 07/25/22 06/20/24 Rx magnesium) tablet famotidine 20 mg tablet 20 mg PO BID 01/05/24 06/20/24 History hydroxyzine HCl 10 mg tablet 20 mg PO QID PRN Other 01/05/24 06/20/24 History acetaminophen 325 mg tablet 650 mg PO QID PRN Pain 03/06/24 06/20/24 History amlodipine 2.5 mg tablet 2.5 mg PO DAILY 03/06/24 06/20/24 History bisacodyl 10 mg rectal suppository 10 mg MI DAILY PRN Constipation 03/06/24 06/20/24 History (Dulcolax (bisacodyl)) gabapentin 100 mg capsule 100 mg PO HS 03/06/24 06/20/24 History ipratropium 0.5 mg-albuterol 3 mg 3 ml inhalation Q4H PRN BREATH 03/06/24 06/20/24 History (2.5 mg base)/3 mL nebulization soln lidocaine 4 % topical patch 1 patch topical BID 03/06/24 06/20/24 History magnesium hydroxide 400 mg/5 mL 30 ml PO DAILY PRN Constipation 03/06/24 06/20/24 History oral suspension (Milk of Magnesia) sennosides 8.6 mg capsule (senna) 17.2 mg PO BID 03/06/24 06/20/24 History diphenhydramine-calamine lotion 1 ea topical Q2H PRN Itching 06/20/24 06/20/24 History miconazole nitrate 2 % topical 1 applic topical BID 06/20/24 06/20/24 History powder (Antifungal (miconazole)) sodium phosphates 19 gram-7 118 ml MI DAILY PRN Constipation 06/20/24 06/20/24 History gram/118 mL enema (Fleet Enema) Patient History Medical History Fibromyalgia Benign paroxysmal positional vertigo, bilateral History of seizure disorder History of peptic ulcer disease Chronic urticaria Irritable bowel syndrome Anxiety Depression Osteoarthritis Hypothyroidism GERD (gastroesophageal reflux disease) Hyperlipidemia Surgical History History of tubal ligation History of D&C History of carpal tunnel surgery of right wrist History of craniotomy Family History Sister Family history of reaction to anesthesia Social History Smoking Status: Former smoker Second Hand Exposure: No; Do You Dip or Chew Tobacco: No; Tobacco Cessation Education Requested by Patient: No Hx Alcohol Use: No Hx Substance Use: No Preferred Language: [place] Communication Ability: Impaired Communication Ability Comment: pt. 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 Other Information That Helps Us Care for You: No Feels Safe at Home: Yes Safety Concerns: Feels Safe At This Time Assistive Devices: Wheelchair Review of Systems Review of Systems: All systems reviewed & are unremarkable except as noted in HPI & below Constitutional: as per Subjective / HPI Eyes: as per Subjective / HPI Ear, Nose, Mouth, Throat: as per Subjective / HPI Respiratory: as per Subjective / HPI Cardiovascular: as per Subjective / HPI Gastrointestinal: as per Subjective / HPI Genitourinary: as per Subjective / HPI Musculoskeletal: as per Subjective / HPI Integumentary: as per Subjective / HPI Neurologic: as per Subjective / HPI Psychiatric: as per Subjective / HPI Endocrine: as per Subjective / HPI Hematologic / Lymphatic: as per Subjective / HPI Physical Exam Constitutional: WD/WN, vitals as above Eyes: PERRL, conjunctivae normal, anicteric sclerae ENMT: external ear and nose normal, oropharynx normal Neck: trachea midline, no thyromegaly Respiratory: normal respiratory effort, lungs clear to auscultation Cardiovascular: RRR, no murmur, no edema Gastrointestinal (Abdomen): normal bowel sounds, soft, nontender, no hepatosplenomegaly Musculoskeletal: no cyanosis or clubbing, extremities motor strength 5/5 Skin: no rashes, warm and dry Neurologic: patellar DTR's 2+ bilat, sensation intact Psychiatric: A+Ox3, euthymic affect Results & Data Vital Signs (Past 12 Hours) Vital Signs Temp Pulse Pulse Resp BP Pulse Ox Pulse Ox 06/23/24 16:00 91 06/23/24 15:09 36.8 C 79 20 100/67 91 06/23/24 14:59 72 06/23/24 14:00 72 18 95 06/23/24 11:46 36.8 C 76 20 90/59 L 94 06/23/24 08:35 36.6 C 64 102/71 92 06/23/24 08:24 06/23/24 07:34 74 15 92 06/23/24 07:12 71 O2 Del Method O2 Del Method FiO2 06/23/24 16:00 Room Air 06/23/24 15:09 Room Air 06/23/24 14:59 06/23/24 14:00 Room Air 06/23/24 11:46 Room Air 06/23/24 08:35 Room Air 06/23/24 08:24 Room Air 06/23/24 07:34 Room Air 21 06/23/24 07:12
[2024-06-24 13:32] LABS: Hematocrit (blood only) 33.5 % (37.0-47.0); Hemoglobin 11.3 g/dl (12.0-16.0); Lymphocytes # (auto) 1.13 K/uL (1.20-3.40); Lymphocytes % (auto) 42.2 %; Mean Corpuscular Hemoglobin 32.7 pg (25.0-34.0); Mean Corpuscular Hgb Conc 33.7 g/dL (32.0-36.0); Mean Corpuscular Volume 96.8 fL (80.0-100.0); Mean Platelet Volume 10.5 fL (9.4-12.4); Monocytes # (auto) 0.15 K/uL (0.11-0.59); Monocytes % (auto) 5.6 %; Neutrophils % (auto) 52.2 %; Platelet Count 81 K/uL (130-400); RDW Standard Deviation 46.5 fL (36.4-46.3); Red Blood Count 3.46 M/uL (4.20-5.40); White Blood Count 2.68 K/ul (4.8-10.8)
[2024-06-24 14:02] LABS: Calcium 7.8 mg/dl (8.6-10.3); Potassium 4.1 mmol/L (3.5-5.1)
[2024-06-24 14:08] LABS: BUN Creatinine Ratio 10.6 (10-20); Creatinine Clr Calc Pharmacy 103.7 ml/min
--- NOTE | 2024-06-24 16:55 | Hospitalist Progress Note ---
Date of Service June 24, 2024 Assessment & Plan (1) Fever: (2) Influenza A: Plan per previous hospitalist notes with addendum: 63 year old woman with h/o CVA, hypertension, hyperlipidemia, seizure disorder, astrocytoma status post surgery/chemoradiation, traumatic brain injury as per records, excessive sleepiness on modafinil, GERD, hypothyroidism, cognitive impairment, chronic urticaria as per records, chronic constipation, history ESBL UTI as per records, past tobacco abuse who presents from rehab for fever and increased lethargy Sepsis POA Influenza A Acute bronchitis possible bacterial superinfection UTI Influenza A is positive Lactate elevated on admission UA did not show any nitrite/esterase and 0-5 WBC, which makes UTI doubtful Had fever of 39 on admission Continue tamiflu Currently on empirical meropenem and vancomycin Follow-up on blood culture and urine culture. History of ESBL UTI in the past. 06/22 Blood pressure on the lower side, possible hypovolemic component as patient's oral intake is very poor Additional 1 L IV fluid bolus ordered in the afternoon Continue IV NSS at 100 cc/h Blood cultures: Pending Sputum culture: Ordered Nasal MRSA: Negative Transition from IV vancomycin plus meropenem to Levaquin Continue Tamiflu monitor closely 06/23 Blood pressure still marginal Continue with gentle IV fluids Monitor blood pressure closely Blood cultures: Negative so far x 48 hours Sputum culture: Pending collection Nasal MRSA: Negative Continue Levaquin Continue Tamiflu 06/24 clinically improving overall blood pressure improving Continue Levaquin and Tamiflu Acute hypoxic respiratory failure secondary to influenza A bronchitis, possible superimposed bacterial infection continue Tamiflu, Levaquin nebs 4 times daily weaned off oxygen Pancytopenia CBC continues to trend down Peripheral smear:The peripheral smear is remarkable for thrombocytopenia and lymphopenia. Common causes of thrombocytopenia include, but are not limited to, inadequate production by megakaryocytes, intramedullary loss of platelets (as in myelodysplasia), anaplasmosis infection, or a platelet consumptive process. Features of a myelodysplastic process or anaplasmosis neutrophilic inclusions are not identified. ITP generally does not show morphologic findings on a peripheral smear and should be ruled out through other methods if there is a concern for this disorder. The lymphopenia is likely related to the current influenza infection. Clinical correlation is recommended. No bleeding counts are still low, but stable since yesterday likely from sepsis, influenza A infection Hematology service consulted Bilateral lower extremity erythematous rash-likely secondary to vancomycin, discontinued, Benadryl IV 1 dose given Monitor closely Sacral decub ulcer Wound care nurse consulted Reposition every 2 hours Chronic medical conditions CVA- continue on aspirin Hypertension,- hold amlodipine in light of marginal blood pressures Hyperlipidemia on statin Rx Hx seizure disorder on Tegretol Astrocytoma status post surgery/chemoradiation Excessive sleepiness on modafinil DNR/DNI as per advanced directive from the facility DVT SCDs for now. Thrombocytopenia Disposition Lives at [facility] Admission and Anticipated Discharge Date Admission Date: June 20, 2024 Subjective follow-up for sepsis, influenza A infection, UTI, etc. Seen resting in bed, comfortable, not in distress Conversant, in good spirits States she continues to feel improved overall Breathing is improving, less cough No chest pain No abdominal pain Review of Systems Review of Systems: all noted and negative except for above Physical Exam Physical Exam: General- oriented x 3, not in distress, speaks in sentences with no effort or accessory muscle use Eyes- anicteric Neck- no JVD Lungs- mild rhonchi bilaterally, no wheezing Good air entry bilaterally Heart- normal rate, regular rhythm; no murmurs Abdomen- normal bowel sounds, nondistended, soft, nontender Extremities- no pretibial edema, no calf tenderness Neuro- alert, oriented x 2; no gross focal neurologic deficits Skin- warm & dry Results & Data Results & Data Vital Signs (Past 12 Hours) Vital Signs Temp Pulse Pulse Resp BP Pulse Ox O2 Del Method 06/24/24 13:39 71 18 92 Room Air 06/24/24 13:00 69 06/24/24 11:21 36.9 C 71 18 117/94 92 Room Air 06/24/24 08:30 Room Air 06/24/24 07:20 71 18 95 Nasal Cannula 06/24/24 07:10 37.0 C 72 18 87/54 L 95 Nasal Cannula 06/24/24 07:00 69 O2 Flow Rate 06/24/24 13:39 06/24/24 13:00 06/24/24 11:21 06/24/24 08:30 06/24/24 07:20 2 06/24/24 07:10 2 06/24/24 07:00
[2024-06-24] MEDS: levoFLOXacin 750 MG TAB PO SCH (17:21)
[2024-06-25 08:00] LABS: Hematocrit (blood only) 33.9 % (37.0-47.0); Hemoglobin 11.4 g/dl (12.0-16.0); Mean Corpuscular Hemoglobin 32.1 pg (25.0-34.0); Mean Corpuscular Hgb Conc 33.6 g/dL (32.0-36.0); Mean Corpuscular Volume 95.5 fL (80.0-100.0); Mean Platelet Volume 9.8 fL (9.4-12.4); Platelet Count 86 K/uL (130-400); RDW Coefficient of Variation 12.8 % (11.5-14.5); RDW Standard Deviation 44.6 fL (36.4-46.3); Red Blood Count 3.55 M/uL (4.20-5.40); White Blood Count 2.62 K/ul (4.8-10.8)
[2024-06-25 08:05] LABS: BUN Creatinine Ratio 7.7 (10-20); Creatinine Clr Calc Pharmacy 93.2 ml/min; Potassium 3.7 mmol/L (3.5-5.1)
[2024-06-25 09:05] LABS: ALC (manual) 2.04 K/uL (1.2-3.4); ANC (manual) 0.58 K/uL (1.4-6.5); Lymphocytes # (manual) 1.99 K/uL (1.2-3.4); Lymphocytes % (manual) 76 %; Neutrophils # (manual) 0.58 K/uL (1.40-6.50); Neutrophils % (manual) 22 %; Plasma Cells # (manual) 0.05 K/uL (0-0); Plasma Cells % (manual) 2 %
[2024-06-25] MEDS: MAGNESIUM HYDROXIDE SUSP 30 ML UDC PO PRN (10:22)
--- NOTE | 2024-06-25 13:05 | Hospitalist Progress Note ---
Date of Service June 25, 2024 Assessment & Plan (1) Fever: (2) Influenza A: Plan per previous hospitalist notes with addendum: 63 year old woman with h/o CVA, hypertension, hyperlipidemia, seizure disorder, astrocytoma status post surgery/chemoradiation, traumatic brain injury as per records, excessive sleepiness on modafinil, GERD, hypothyroidism, cognitive impairment, chronic urticaria as per records, chronic constipation, history ESBL UTI as per records, past tobacco abuse who presents from rehab for fever and increased lethargy Sepsis POA Influenza A Acute bronchitis possible bacterial superinfection UTI Influenza A is positive Lactate elevated on admission UA did not show any nitrite/esterase and 0-5 WBC, which makes UTI doubtful Had fever of 39 on admission Continue tamiflu Currently on empirical meropenem and vancomycin Follow-up on blood culture and urine culture. History of ESBL UTI in the past. 06/22 Blood pressure on the lower side, possible hypovolemic component as patient's oral intake is very poor Additional 1 L IV fluid bolus ordered in the afternoon Continue IV NSS at 100 cc/h Blood cultures: Pending Sputum culture: Ordered Nasal MRSA: Negative Transition from IV vancomycin plus meropenem to Levaquin Continue Tamiflu monitor closely 06/23 Blood pressure still marginal Continue with gentle IV fluids Monitor blood pressure closely Blood cultures: Negative so far x 48 hours Sputum culture: Pending collection Nasal MRSA: Negative Continue Levaquin Continue Tamiflu 06/24 clinically improving overall blood pressure improving Continue Levaquin and Tamiflu 06/25 clinically improving (+) rhonchi, repeat CXR continue nebs, abx complete tamiflu Acute hypoxic respiratory failure secondary to influenza A bronchitis, possible superimposed bacterial infection continue Tamiflu, Levaquin nebs 4 times daily weaned off oxygen Pancytopenia CBC continues to trend down Peripheral smear:The peripheral smear is remarkable for thrombocytopenia and lymphopenia. Common causes of thrombocytopenia include, but are not limited to, inadequate production by megakaryocytes, intramedullary loss of platelets (as in myelodysplasia), anaplasmosis infection, or a platelet consumptive process. Features of a myelodysplastic process or anaplasmosis neutrophilic inclusions are not identified. ITP generally does not show morphologic findings on a peripheral smear and should be ruled out through other methods if there is a concern for this disorder. The lymphopenia is likely related to the current influenza infection. Clinical correlation is recommended. No bleeding counts are still low, but stable since yesterday likely from sepsis, influenza A infection Hematology service consulted 06/25 stable likely from sepsis, flu Bilateral lower extremity erythematous rash-likely secondary to vancomycin, discontinued, Benadryl IV 1 dose given Monitor closely Sacral decub ulcer Wound care nurse consulted Reposition every 2 hours Chronic medical conditions CVA- continue on aspirin Hypertension,- hold amlodipine in light of marginal blood pressures Hyperlipidemia on statin Rx Hx seizure disorder on Tegretol Astrocytoma status post surgery/chemoradiation Excessive sleepiness on modafinil DNR/DNI as per advanced directive from the facility DVT SCDs for now. Thrombocytopenia Disposition Lives at [facility] facility Admission and Anticipated Discharge Date Admission Date: June 20, 2024 Subjective ff up for sepsis, flu, UTI, etc seen resting in bed, comfortable conversant, awake states she continues to feel better overall denies cough, shortness of breath no chest pain no fever/chills no abdominal pain no other symptoms Review of Systems Review of Systems: all noted and negative except for above Physical Exam Physical Exam: General- oriented x 2 not in distress, speaks in sentences with no effort or accessory muscle use Eyes- anicteric Neck- no JVD Lungs- mild rhonchi BL no wheezing Heart- normal rate, regular rhythm; no murmurs Abdomen- normal bowel sounds, nondistended, soft, nontender Extremities- no pretibial edema, no calf tenderness Neuro- alert, oriented x 2; no gross focal neurologic deficits Skin- warm & dry Results & Data Results & Data Vital Signs (Past 12 Hours) Vital Signs Temp Pulse Pulse Resp BP BP Pulse Ox 06/25/24 12:32 80 16 94 06/25/24 11:08 37.4 C 75 16 109/67 91 06/25/24 08:45 06/25/24 08:11 37.1 C 78 16 94/56 L 92 06/25/24 07:29 76 16 93 06/25/24 07:00 65 06/25/24 03:27 36.6 C 71 20 105/73 93 06/25/24 01:49 71 16 94 O2 Del Method O2 Flow Rate 06/25/24 12:32 Room Air 06/25/24 11:08 Room Air 06/25/24 08:45 Room Air 06/25/24 08:11 Nasal Cannula 2 06/25/24 07:29 Room Air 06/25/24 07:00 06/25/24 03:27 Room Air 06/25/24 01:49 Room Air all noted and reviewed including below
--- NOTE | 2024-06-25 13:34 | XRay Report ---
Clinical History: Rule out pneumonia Technique: 2 frontal views of the chest were obtained Comparison is made to the prior examination dated 06/22/2024 Findings: This examination is limited by suboptimal positioning. There is new right lung base opacity that could be due to either atelectasis or pneumonia. The heart size is within normal limits. No definite pleural effusion or pneumothorax is seen. There is no definite pulmonary nodule. No fracture is noted. No foreign body is seen Impression: Right lung base opacity that could be due to either atelectasis or pneumonia ACT 112: Positive. There are findings on this exam that require communication between the performing entity and the patient following Patient Test Result Information Act ([place] ACT 112) guidelines. Electronically signed by Godwin Rose 06-25-2024 13:34 PM
[2024-06-26 07:06] LABS: Hematocrit (blood only) 35.2 % (37.0-47.0); Hemoglobin 11.7 g/dl (12.0-16.0); Mean Corpuscular Hemoglobin 32.2 pg (25.0-34.0); Mean Corpuscular Hgb Conc 33.2 g/dL (32.0-36.0); Mean Platelet Volume 10.2 fL (9.4-12.4); Platelet Count 105 K/uL (130-400); RDW Coefficient of Variation 12.8 % (11.5-14.5); RDW Standard Deviation 45.2 fL (36.4-46.3); Red Blood Count 3.63 M/uL (4.20-5.40); White Blood Count 3.55 K/ul (4.8-10.8)
[2024-06-26 07:47] LABS: BUN Creatinine Ratio 8.3 (10-20); Creatinine Clr Calc Pharmacy 79.5 ml/min; Potassium 3.8 mmol/L (3.5-5.1)
[2024-06-26 08:03] LABS: ALC (manual) 2.52 K/uL (1.2-3.4); ANC (manual) 0.96 K/uL (1.4-6.5); Lymphocytes # (manual) 2.24 K/uL (1.2-3.4); Lymphocytes % (manual) 63 %; Metamyelocytes # (manual) 0.04 K/uL (0-0); Metamyelocytes % (manual) 1 %; Monocytes # (manual) 0.04 K/uL (0.11-0.59); Monocytes % (manual) 1 %; Neutrophils # (manual) 0.96 K/uL (1.40-6.50); Neutrophils % (manual) 27 %; Reactive Lymphocytes # (manual) 0.28 K/uL; Reactive Lymphocytes % (manual) 8 %
--- NOTE | 2024-06-26 14:57 | Hospitalist Progress Note ---
Date of Service June 26, 2024 Assessment & Plan (1) Fever: (2) Influenza A: Plan per previous hospitalist notes with addendum: 63 year old woman with h/o CVA, hypertension, hyperlipidemia, seizure disorder, astrocytoma status post surgery/chemoradiation, traumatic brain injury as per records, excessive sleepiness on modafinil, GERD, hypothyroidism, cognitive impairment, chronic urticaria as per records, chronic constipation, history ESBL UTI as per records, past tobacco abuse who presents from rehab for fever and increased lethargy Sepsis POA Influenza A Acute bronchitis possible bacterial superinfection UTI Influenza A is positive Lactate elevated on admission UA did not show any nitrite/esterase and 0-5 WBC, which makes UTI doubtful Had fever of 39 on admission Continue tamiflu Currently on empirical meropenem and vancomycin Follow-up on blood culture and urine culture. History of ESBL UTI in the past. 06/22 Blood pressure on the lower side, possible hypovolemic component as patient's oral intake is very poor Additional 1 L IV fluid bolus ordered in the afternoon Continue IV NSS at 100 cc/h Blood cultures: Pending Sputum culture: Ordered Nasal MRSA: Negative Transition from IV vancomycin plus meropenem to Levaquin Continue Tamiflu monitor closely 06/23 Blood pressure still marginal Continue with gentle IV fluids Monitor blood pressure closely Blood cultures: Negative so far x 48 hours Sputum culture: Pending collection Nasal MRSA: Negative Continue Levaquin Continue Tamiflu 06/24 clinically improving overall blood pressure improving Continue Levaquin and Tamiflu 06/25 clinically improving (+) rhonchi, repeat CXR continue nebs, abx complete tamiflu 06/26 Continues to improve clinically Repeat chest x-ray: Possible right lower lobe pneumonia Continue Levaquin Continue nebs Has completed course of Tamiflu x 5 days Discussed with speech therapist, patient known aspirator Discussed with RN regarding aspiration prevention, mouth care Acute hypoxic respiratory failure secondary to influenza A bronchitis, possible superimposed bacterial infection continue Tamiflu, Levaquin nebs 4 times daily wean off oxygen Pancytopenia CBC continues to trend down Peripheral smear:The peripheral smear is remarkable for thrombocytopenia and lymphopenia. Common causes of thrombocytopenia include, but are not limited to, inadequate production by megakaryocytes, intramedullary loss of platelets (as in myelodysplasia), anaplasmosis infection, or a platelet consumptive process. Features of a myelodysplastic process or anaplasmosis neutrophilic inclusions are not identified. ITP generally does not show morphologic findings on a peripheral smear and should be ruled out through other methods if there is a concern for this disorder. The lymphopenia is likely related to the current influenza infection. Clinical correlation is recommended. No bleeding counts are still low, but stable since yesterday likely from sepsis, influenza A infection Hematology service consulted 06/26 Improving likely from sepsis, flu Bilateral lower extremity erythematous rash-likely secondary to vancomycin, discontinued, Benadryl IV 1 dose given Monitor closely Sacral decub ulcer Wound care nurse consulted Reposition every 2 hours Chronic medical conditions CVA- continue on aspirin Hypertension,- hold amlodipine in light of marginal blood pressures Hyperlipidemia on statin Rx Hx seizure disorder on Tegretol Astrocytoma status post surgery/chemoradiation Excessive sleepiness on modafinil DNR/DNI as per advanced directive from the facility DVT SCDs for now. Thrombocytopenia Disposition Lives at [facility] facility Admission and Anticipated Discharge Date Admission Date: June 20, 2024 Subjective follow-up for sepsis, flu, etc. Seen resting in bed, awake and alert, conversant, brighter States she feels better overall No shortness of breath, no cough Patient denies problems with swallowing No abdominal pain, nausea No other new symptom Review of Systems Review of Systems: all noted and negative except for above Physical Exam Physical Exam: General- oriented x 2, not in distress, speaks in sentences with no effort or accessory muscle use Eyes- anicteric Neck- no JVD Lungs- mild rhonchi bilaterally, no wheezing Good air entry bilaterally Heart- normal rate, regular rhythm; no murmurs Abdomen- normal bowel sounds, nondistended, soft, nontender Extremities- no pretibial edema, no calf tenderness Neuro- alert, oriented x 2; no gross focal neurologic deficits Skin- warm & dry Results & Data Results & Data Vital Signs (Past 12 Hours) Vital Signs Temp Pulse Resp BP Pulse Ox O2 Del Method O2 Flow Rate 06/26/24 12:15 65 18 91 Room Air 06/26/24 11:53 37.2 C 67 16 96/63 L 91 Room Air 06/26/24 09:50 Room Air 06/26/24 08:35 36.9 C 75 16 101/63 96 Nasal Cannula 4 06/26/24 07:10 64 18 92 Nasal Cannula 3 06/26/24 03:39 36.6 C 73 20 98/54 L 93 Nasal Cannula 5 all noted and reviewed including below
[2024-06-27 08:13] LABS: Hematocrit (blood only) 35.8 % (37.0-47.0); Hemoglobin 11.8 g/dl (12.0-16.0); Immature Granulocytes # (auto) 0.02 K/uL (0.01-0.20); Immature Granulocytes % (auto) 0.6 %; Lymphocytes # (auto) 1.65 K/uL (1.20-3.40); Lymphocytes % (auto) 46.6 %; Mean Corpuscular Hemoglobin 32.5 pg (25.0-34.0); Mean Corpuscular Volume 98.6 fL (80.0-100.0); Mean Platelet Volume 10.6 fL (9.4-12.4); Monocytes # (auto) 0.22 K/uL (0.11-0.59); Monocytes % (auto) 6.2 %; Neutrophils # (auto) 1.65 K/uL (1.40-6.50); Neutrophils % (auto) 46.6 %; Platelet Count 138 K/uL (130-400); RDW Standard Deviation 46.3 fL (36.4-46.3); Red Blood Count 3.63 M/uL (4.20-5.40); White Blood Count 3.54 K/ul (4.8-10.8)
[2024-06-27 08:25] LABS: BUN Creatinine Ratio 8.2 (10-20); Calcium 7.9 mg/dl (8.6-10.3); Creatinine Clr Calc Pharmacy 78.1 ml/min; Potassium 3.4 mmol/L (3.5-5.1)
[2024-06-27] MEDS: POTASSIUM CHLORIDE 10 MEQ TABCR PO STA (09:58)
--- NOTE | 2024-06-27 16:40 | Hospitalist Progress Note ---
Date of Service June 27, 2024 Assessment & Plan (1) Fever: (2) Influenza A: Plan per previous hospitalist notes with addendum: 63 year old woman with h/o CVA, hypertension, hyperlipidemia, seizure disorder, astrocytoma status post surgery/chemoradiation, traumatic brain injury as per records, excessive sleepiness on modafinil, GERD, hypothyroidism, cognitive impairment, chronic urticaria as per records, chronic constipation, history ESBL UTI as per records, past tobacco abuse who presents from rehab for fever and increased lethargy Sepsis POA Influenza A Acute bronchitis possible bacterial superinfection UTI Influenza A is positive Lactate elevated on admission UA did not show any nitrite/esterase and 0-5 WBC, which makes UTI doubtful Had fever of 39 on admission Continue tamiflu Currently on empirical meropenem and vancomycin Follow-up on blood culture and urine culture. History of ESBL UTI in the past. 06/22 Blood pressure on the lower side, possible hypovolemic component as patient's oral intake is very poor Additional 1 L IV fluid bolus ordered in the afternoon Continue IV NSS at 100 cc/h Blood cultures: Pending Sputum culture: Ordered Nasal MRSA: Negative Transition from IV vancomycin plus meropenem to Levaquin Continue Tamiflu monitor closely 06/23 Blood pressure still marginal Continue with gentle IV fluids Monitor blood pressure closely Blood cultures: Negative so far x 48 hours Sputum culture: Pending collection Nasal MRSA: Negative Continue Levaquin Continue Tamiflu 06/24 clinically improving overall blood pressure improving Continue Levaquin and Tamiflu 06/25 clinically improving (+) rhonchi, repeat CXR continue nebs, abx complete tamiflu 06/26 Continues to improve clinically Repeat chest x-ray: Possible right lower lobe pneumonia Continue Levaquin Continue nebs Has completed course of Tamiflu x 5 days Discussed with speech therapist, patient known aspirator Discussed with RN regarding aspiration prevention, mouth care 06/27 Gradually improving Continue present regimen Acute hypoxic respiratory failure secondary to influenza A bronchitis, possible superimposed bacterial infection continue Tamiflu, Levaquin nebs 4 times daily wean off oxygen Pancytopenia CBC continues to trend down Peripheral smear:The peripheral smear is remarkable for thrombocytopenia and lymphopenia. Common causes of thrombocytopenia include, but are not limited to, inadequate production by megakaryocytes, intramedullary loss of platelets (as in myelodysplasia), anaplasmosis infection, or a platelet consumptive process. Features of a myelodysplastic process or anaplasmosis neutrophilic inclusions are not identified. ITP generally does not show morphologic findings on a peripheral smear and should be ruled out through other methods if there is a concern for this disorder. The lymphopenia is likely related to the current influenza infection. Clinical correlation is recommended. No bleeding counts are still low, but stable since yesterday likely from sepsis, influenza A infection Hematology service consulted 06/27 Improving likely from sepsis, flu Bilateral lower extremity erythematous rash-likely secondary to vancomycin, discontinued, Benadryl IV 1 dose given Monitor closely Sacral decub ulcer Wound care nurse consulted Reposition every 2 hours Chronic medical conditions CVA- continue on aspirin Hypertension,- hold amlodipine in light of marginal blood pressures Hyperlipidemia on statin Rx Hx seizure disorder on Tegretol Astrocytoma status post surgery/chemoradiation Excessive sleepiness on modafinil DNR/DNI as per advanced directive from the facility DVT SCDs for now. Thrombocytopenia Disposition Lives at care home facility Admission and Anticipated Discharge Date Admission Date: June 20, 2024 Subjective Resting in bed, comfortable, awake alert Conversant States she feels better improved overall No shortness of breath, less cough No other symptoms Review of Systems Review of Systems: all noted and negative except for above Physical Exam Physical Exam: General- oriented x 2, not in distress, speaks in sentences with no effort or accessory muscle use Eyes- anicteric Neck- no JVD Lungs- Mild rhonchi right versus left No wheezing Good air entry bilaterally Heart- normal rate, regular rhythm; no murmurs Abdomen- normal bowel sounds, nondistended, soft, nontender Extremities- no pretibial edema, no calf tenderness Neuro- alert, oriented x 3; no gross focal neurologic deficits Skin- warm & dry Results & Data Results & Data Vital Signs (Past 12 Hours) Vital Signs Temp Pulse Pulse Resp BP Pulse Ox O2 Del Method 06/27/24 15:26 36.8 C 66 20 91/62 L 90 Room Air 06/27/24 13:25 68 18 94 Room Air 06/27/24 13:05 67 06/27/24 12:19 20 92 Room Air 06/27/24 11:14 36.8 C 71 18 90/59 L 90 Room Air 06/27/24 10:20 96 Room Air, Nasal Cannula 06/27/24 07:50 Nasal Cannula 06/27/24 07:35 36.8 C 71 18 114/77 93 Nasal Cannula 06/27/24 07:10 66 18 94 Nasal Cannula 06/27/24 06:12 61 O2 Flow Rate 06/27/24 15:26 06/27/24 13:25 06/27/24 13:05 06/27/24 12:19 06/27/24 11:14 06/27/24 10:20 2 06/27/24 07:50 2 06/27/24 07:35 2 06/27/24 07:10 2 06/27/24 06:12 all noted and reviewed including below
[2024-06-27] MEDS ORDERED: COSYNTROPIN 250 MCG in SYRINGE 4 ML IV ONE (20:00)
[2024-06-28] MEDS: COSYNTROPIN 250 MCG in SYRINGE 4 ML IV ONE (05:44)
[2024-06-28 06:19] LABS: BUN Creatinine Ratio 10.3 (10-20); Calcium 7.5 mg/dl (8.6-10.3); Creatinine Clr Calc Pharmacy 82.1 ml/min; Potassium 3.7 mmol/L (3.5-5.1)
[2024-06-28 06:31] LABS: Hematocrit (blood only) 31.9 % (37.0-47.0); Hemoglobin 10.6 g/dl (12.0-16.0); Mean Corpuscular Hemoglobin 32.5 pg (25.0-34.0); Mean Corpuscular Hgb Conc 33.2 g/dL (32.0-36.0); Mean Corpuscular Volume 97.9 fL (80.0-100.0); Platelet Count 147 K/uL (130-400); RDW Standard Deviation 46.7 fL (36.4-46.3); Red Blood Count 3.26 M/uL (4.20-5.40); White Blood Count 3.08 K/ul (4.8-10.8)
[2024-06-28 06:56] LABS: Immature Granulocytes # (auto) 0.04 K/uL (0.01-0.20); Immature Granulocytes % (auto) 1.3 %; Lymphocytes # (auto) 1.65 K/uL (1.20-3.40); Lymphocytes % (auto) 53.6 %; Monocytes % (auto) 6.5 %; Neutrophils # (auto) 1.19 K/uL (1.40-6.50); Neutrophils % (auto) 38.6 %
[2024-06-28] MEDS ORDERED: LEVALBUTEROL 1.25 MG/3 ML NEB NEB PRN (11:51)
--- NOTE | 2024-06-28 14:26 | Hospitalist Progress Note ---
Date of Service June 28, 2024 Assessment & Plan (1) Fever: (2) Influenza A: Plan per previous hospitalist notes with addendum: 63 year old woman with h/o CVA, hypertension, hyperlipidemia, seizure disorder, astrocytoma status post surgery/chemoradiation, traumatic brain injury as per records, excessive sleepiness on modafinil, GERD, hypothyroidism, cognitive impairment, chronic urticaria as per records, chronic constipation, history ESBL UTI as per records, past tobacco abuse who presents from rehab for fever and increased lethargy Sepsis POA Influenza A Acute bronchitis possible bacterial superinfection, acute hypoxic respiratory failure UTI-E. coli Influenza A is positive Lactate elevated on admission showed gradual improvement daily Weaned off O2 patient initially received IV meropenem and vancomycin x 3 days Transitioned to Levaquin 750 mg, completed 5-day course Completed Tamiflu today Blood pressure noted to be on the lower side even with Aggressive IV fluids Random cortisol 7.7 Cosyntropin stimulation test performed today,Suggestive of possible adrenal insufficiency Awaiting callback from [facility] to discuss Pancytopenia CBC trended down Peripheral smear:The peripheral smear is remarkable for thrombocytopenia and lymphopenia. Common causes of thrombocytopenia include, but are not limited to, inadequate production by megakaryocytes, intramedullary loss of platelets (as in myelodysplasia), anaplasmosis infection, or a platelet consumptive process. Features of a myelodysplastic process or anaplasmosis neutrophilic inclusions are not identified. ITP generally does not show morphologic findings on a peripheral smear and should be ruled out through other methods if there is a concern for this disorder. The lymphopenia is likely related to the current influenza infection. Clinical correlation is recommended. No bleeding counts are still low, but stable since yesterday likely from sepsis, influenza A infection Hematology service consulted 06/28 Improving likely from sepsis, flu Bilateral lower extremity erythematous rash-likely secondary to vancomycin, discontinued, Benadryl IV 1 dose given Monitor closely Sacral decub ulcer Wound care nurse consulted Reposition every 2 hours daily wound care Chronic medical conditions CVA- continue on aspirin Hypertension,- hold amlodipine in light of marginal blood pressures Hyperlipidemia on statin Rx Hx seizure disorder on Tegretol Astrocytoma status post surgery/chemoradiation Excessive sleepiness on modafinil DNR/DNI as per advanced directive from the facility DVT SCDs for now. Thrombocytopenia Disposition Lives at [facility] facility possible d/c in 1-2 days Admission and Anticipated Discharge Date Admission Date: June 20, 2024 Subjective Follow-up for sepsis, flu, pneumonia, etc. Seen resting in bed, awake, alert, having lunch On room air, O2 sats 93% States she continues to feel okay overall No problems with breathing No cough No abdominal pain, nausea No other new symptoms Review of Systems Review of Systems: all noted and negative except for above Physical Exam Physical Exam: General- oriented x 2, not in distress, speaks in sentences with no effort or accessory muscle use Eyes- anicteric Neck- no JVD Lungs- faint rhonchi bilaterally, no wheezing, good air entry bilaterally Heart- normal rate, regular rhythm; no murmurs Abdomen- normal bowel sounds, nondistended, soft, nontender Extremities- no pretibial edema, no calf tenderness Neuro- alert, oriented x 2; no gross focal neurologic deficits Skin- warm & dry Results & Data Results & Data Vital Signs (Past 12 Hours) Vital Signs Temp Pulse Pulse Resp BP BP Pulse Ox 06/28/24 11:19 36.7 C 69 20 103/68 90 06/28/24 08:00 06/28/24 07:34 36.6 C 61 18 99/66 L 92 06/28/24 07:34 59 L 18 88 L 06/28/24 05:41 59 L 06/28/24 04:00 36.7 C 64 18 109/58 L 93 O2 Del Method O2 Flow Rate 06/28/24 11:19 Room Air 06/28/24 08:00 Nasal Cannula 1 06/28/24 07:34 Nasal Cannula 1 06/28/24 07:34 Room Air 06/28/24 05:41 06/28/24 04:00 Nasal Cannula 1 all noted and reviewed including below
[2024-06-29 07:18] LABS: Hematocrit (blood only) 37.2 % (37.0-47.0); Hemoglobin 12.1 g/dl (12.0-16.0); Immature Granulocytes # (auto) 0.04 K/uL (0.01-0.20); Immature Granulocytes % (auto) 0.8 %; Lymphocytes # (auto) 1.95 K/uL (1.20-3.40); Lymphocytes % (auto) 40.8 %; Mean Corpuscular Hemoglobin 32.4 pg (25.0-34.0); Mean Corpuscular Hgb Conc 32.5 g/dL (32.0-36.0); Mean Corpuscular Volume 99.5 fL (80.0-100.0); Monocytes # (auto) 0.28 K/uL (0.11-0.59); Monocytes % (auto) 5.9 %; Neutrophils # (auto) 2.51 K/uL (1.40-6.50); Neutrophils % (auto) 52.5 %; Platelet Count 186 K/uL (130-400); RDW Coefficient of Variation 13.1 % (11.5-14.5); RDW Standard Deviation 47.5 fL (36.4-46.3); Red Blood Count 3.74 M/uL (4.20-5.40); White Blood Count 4.78 K/ul (4.8-10.8)
[2024-06-29 07:25] LABS: BUN Creatinine Ratio 14.8 (10-20); Calcium 7.9 mg/dl (8.6-10.3); Creatinine Clr Calc Pharmacy 75.6 ml/min; Potassium 3.5 mmol/L (3.5-5.1)
[2024-06-29] MEDS: POLYETHYLENE (MIRALAX) 17 GM PACK PO PRN (09:06)
[2024-06-29 12:55] VITALS: BP 124/84; PULSE 69; RESP 19; TEMP 99.3; O2SAT 95
--- NOTE | 2024-06-29 14:32 | Discharge Summary ---
Discharge Summary Date of Service June 29, 2024 Principal Dx & Hospital Course #1 = Principal Diagnosis (1) Fever: (2) Influenza A: Plan per previous hospitalist notes with addendum: 63 year old woman with h/o CVA, hypertension, hyperlipidemia, seizure disorder, astrocytoma status post surgery/chemoradiation, traumatic brain injury as per records, excessive sleepiness on modafinil, GERD, hypothyroidism, cognitive impairment, chronic urticaria as per records, chronic constipation, history ESBL UTI as per records, past tobacco abuse who presents from rehab for fever and increased lethargy Sepsis POA Influenza A Acute bronchitis possible bacterial superinfection, acute hypoxic respiratory failure UTI-E. coli Influenza A is positive Lactate elevated on admission showed gradual improvement daily Weaned off O2 patient initially received IV meropenem and vancomycin x 3 days Transitioned to Levaquin 750 mg, completed 5-day course Completed Tamiflu today -per [facility] negative cosyntropin test Pancytopenia CBC trended down Peripheral smear:The peripheral smear is remarkable for thrombocytopenia and lymphopenia. Common causes of thrombocytopenia include, but are not limited to, inadequate production by megakaryocytes, intramedullary loss of platelets (as in myelodysplasia), anaplasmosis infection, or a platelet consumptive process. Features of a myelodysplastic process or anaplasmosis neutrophilic inclusions are not identified. ITP generally does not show morphologic findings on a peripheral smear and should be ruled out through other methods if there is a concern for this disorder. The lymphopenia is likely related to the current influenza infection. Clinical correlation is recommended. No bleeding counts are still low, but stable since yesterday likely from sepsis, influenza A infection Hematology service consulted 06/28 -Improving -likely from sepsis, flu -on room air, medically stable for discharge Bilateral lower extremity erythematous rash-likely secondary to vancomycin, discontinued, Benadryl IV 1 dose given Monitor closely Sacral decub ulcer Wound care nurse consulted Reposition every 2 hours daily wound care Chronic medical conditions CVA- continue on aspirin Hypertension,- hold amlodipine in light of marginal blood pressures Hyperlipidemia on statin Rx Hx seizure disorder on Tegretol Astrocytoma status post surgery/chemoradiation Excessive sleepiness on modafinil Notes For Next Care Provider 63 yo female with pmhx astrocytoma status postsurgery/chemoradiation, seizure disorder, CVA, hypertension, excessive sleepiness on modafinil, GERD, hypothyroidism, chronic constipation, history of ESBL UTI as per records, past tobacco use. On medicine, treated for flu and metabolic encepholpathy. Given fluids and tamiflu. On room air. On 06/29/2024 patient medically stable for discharge home. Medication Changes From Visit -see below Admission HPI Per Admitting Provider History obtained from chart review and discussion with ED provider. No history can be obtained from the patient given patient's mentation. Past medical history of astrocytoma status postsurgery/chemoradiation, seizure disorder, CVA, hypertension, excessive sleepiness on modafinil, GERD, hypothyroidism, chronic constipation, history of ESBL UTI as per records, past tobacco use. Last admission in February 2020 for for fever secondary to complicated UTI. Patient is sent from rehab for fever and increased lethargy. Patient was seen at bedside. She was opening her eyes; able to answer yes/no questions briefly; was not able to provide any additional information. She was found to be febrile to 39 C. Lactic acid was 5.3; Pro-Anatoliy elevated to 0.68. Urinalysis positive for infection. Influenza A was positive. Chest x- ray did not show any acute finding. Patient is given IV fluids and Tamiflu and was referred for admission Discharge Exam Gen: A&O 2-3 NAD HEENT: NCAT, EOMI, not icteric. External ears normal. No rhinorrhea. Moist mucous membranes. Neck: Supple, full range of motion, no observable masses, No meningeal sign. Lungs: No Respiratory distress. CV: RRR, no edema. Abdomen: Soft, nondistended, No rebound tenderness. MSK: No joint swelling, no redness. Skin: No rashes, petechiae, lesions. Normal color per patient. Neuro: Normal Gait, Grossly intact. Psych: Appropriate for situation. Updated Medication List Medication Instructions Recorded Confirmed Type cholecalciferol (vitamin D3) 25 1,000 unit PO QAM 06/06/18 06/20/24 History mcg (1,000 unit) capsule (Vitamin D3) cyanocobalamin (vitamin B-12) 500 500 mcg PO QAM 06/06/18 06/20/24 History mcg tablet (Vitamin B-12) levothyroxine 50 mcg tablet 50 mcg PO DAILYBB 06/06/18 06/20/24 History (Synthroid) linaclotide 72 mcg capsule 72 mcg PO HS 06/06/18 06/20/24 History (Linzess) multivitamin 1 tab PO QAM 06/06/18 06/20/24 History acetaminophen 500 mg tablet 500 mg PO TID 12/20/18 06/20/24 History aspirin 81 mg tablet,delayed 81 mg PO QAM 12/19/20 06/20/24 History release modafinil 200 mg tablet 200 mg PO QAM 12/19/20 06/20/24 History omeprazole 20 mg capsule,delayed 20 mg PO DAILYBB 12/19/20 06/20/24 History release potassium chloride 20 mEq 20 meq PO DAILY 12/19/20 06/20/24 History tablet,extended release rosuvastatin 40 mg tablet 40 mg PO HS 12/19/20 06/20/24 History mirtazapine 15 mg tablet 15 mg PO HS 06/04/22 06/20/24 History Magic Mix 1 applic topical TID 07/14/22 06/20/24 History carbamazepine 200 mg 200 mg PO BID 07/14/22 06/20/24 History capsule,extended release [id number] magnesium oxide 400 mg (241.3 mg 400 mg PO QAM #30 tabs 07/25/22 06/20/24 Rx magnesium) tablet famotidine 20 mg tablet 20 mg PO BID 01/05/24 06/20/24 History hydroxyzine HCl 10 mg tablet 20 mg PO QID PRN Other 01/05/24 06/20/24 History acetaminophen 325 mg tablet 650 mg PO QID PRN Pain 03/06/24 06/20/24 History amlodipine 2.5 mg tablet 2.5 mg PO DAILY 03/06/24 06/20/24 History bisacodyl 10 mg rectal suppository 10 mg AK DAILY PRN Constipation 03/06/24 06/20/24 History (Dulcolax (bisacodyl)) gabapentin 100 mg capsule 100 mg PO HS 03/06/24 06/20/24 History ipratropium 0.5 mg-albuterol 3 mg 3 ml inhalation Q4H PRN BREATH 03/06/24 06/20/24 History (2.5 mg base)/3 mL nebulization soln lidocaine 4 % topical patch 1 patch topical BID 03/06/24 06/20/24 History magnesium hydroxide 400 mg/5 mL 30 ml PO DAILY PRN Constipation 03/06/24 06/20/24 History oral suspension (Milk of Magnesia) sennosides 8.6 mg capsule (senna) 17.2 mg PO BID 03/06/24 06/20/24 History diphenhydramine-calamine lotion 1 ea topical Q2H PRN Itching 06/20/24 06/20/24 History miconazole nitrate 2 % topical 1 applic topical BID 06/20/24 06/20/24 History powder (Antifungal (miconazole)) sodium phosphates 19 gram-7 118 ml AK DAILY PRN Constipation 06/20/24 06/20/24 History gram/118 mL enema (Fleet Enema) Hospital Stay Data Consultations 06/20/24 18:43 ED Decision to Admit Stat 06/23/24 10:29 Consult Hematology Routine Pending Results Patient Have Any Pending Studies at Discharge: No Discharge Instructions Given to Patient (Per Discharging Provider) 1. Please follow up with PCP. 2. Please take medications as prescribed. Total Time Total Time Spent Total Time Spent (In Minutes): I spent a total of 35 minutes in direct patient care, including [id number] time with the patient and/or family, reviewing medical records, ordering and reviewing diagnostic tests, and coordinating care with other healthcare providers. This time includes: history taking, physical examination, medical decision making, counseling, ECG interpretation, imaging interpretation, lab interpretation, orders, and education, excluding time spent in the performance of separately billed services.
== END 2024-06-29 14:53 | DRG 871 ==
LOC: ED 15:51 → SUATTDRO 18:50 → 2W 18:50